=== PATIENT | male | born 1960 | race Caucasian/White ===

== ENCOUNTER 2024-05-08 12:22 | Inpatient (IN) | payer OTHER ==
[2024-05-08] MEDS ORDERED: NA CHLORIDE 0.9% 1,000 ML ONE (13:03)
[2024-05-08 13:30] LABS: Absolute Monocytes 0.7 K/uL (0.1-1.3); Eosinophils % 0.7 % (0-4.4); Hematocrit 21.4 % (39.6-49.0); Hemoglobin 7.3 g/dL (13.6-17.9); Lymphocytes % 26.7 % (15.3-44.8); MCH 27.4 pg (27.0-35.0); MCHC 34.1 g/dL (32.0-36.0); MCV 80.2 fL (80-100); Monocytes % 17.9 % (3.3-12.3); Neutrophils % 53.7 % (41.7-73.7); Nucleated Red Blood Cells % 0.1 % (0-0); Platelets 97 thou/uL (152-406); RBC Red Blood Cell Count 2.68 M/uL (4.33-5.43); Red Cell Distribution Width 23.3 % (12.1-15.2)
[2024-05-08 13:32] LABS: PT Prothrombin Time 11.7 SECONDS (9.4-12.5); Protime INR 1.05
[2024-05-08 13:49] LABS: Albumin 2.3 g/dL (3.4-5.0); Albumin/Globulin Ratio 0.6 (1.1-1.8); Anion Gap 7.8 mEq/L (5.0-15.0); Bilirubin Direct 0.2 mg/dL (0-0.2); Bilirubin Indirect, Calculated 0.3 mg/dL (0.2-0.8); Bilirubin Total 0.5 mg/dL (0.2-1.0); Globulin 4.1 g/dL (2.3-3.5); Magnesium 2.1 mg/dL (1.6-2.4); Potassium 3.8 mEq/L (3.5-5.1); Protein, Total 6.4 g/dL (6.4-8.2); Troponin High Sensitivity 44.9 pg/mL (<58.9)
[2024-05-08 13:56] LABS: SARS-CoV-2 Antigen CONTROL BLUE LINE VIS/BG OK; SARS-CoV-2 Antigen Rapid Res Negative (Negative)
[2024-05-08 14:01] LABS: Anisocytosis 2+; Blood Morphology Comment NOTED (NOT SEEN); Hypochromasia 1+; Ovalocytes 1+; Platelet Estimate DECR; White Blood Cell Scan OK (OK)
--- NOTE | 2024-05-08 15:18 | RAD REPORT ---
EXAM DESCRIPTION: Lu Single View05/08/2024 1:33 pm CLINICAL HISTORY: CHEST PAIN COMPARISON: No comparisonsNo comparisons TECHNIQUE: Portable AP view of the chest. FINDINGS: The lungs are clear. No pneumothorax or effusion. The cardiomediastinal contours are unre markable. IMPRESSION: No acute cardiopulmonary process.
--- NOTE | 2024-05-08 15:59 | EDPHYS ---
Physician Documentation [facility] Name: Chalo Little Age: 63 yrs Sex: Male : 1960 Arrival Date: 05/08/2024 Time: 12:22 Bed 16 Private MD: ED Physician Shalonda Simmons HPI: 05/08 12:50 This 63 yrs old Male presents to ER via EMS with complaints of Chest Pain. cp 12:50 The patient or guardian reports chest pain that is located primarily in the anterior cp chest wall. 12:50 Onset: this morning, intermittent. The pain does not radiate. Associated signs and cp symptoms: Pertinent negatives: abdominal pain, diaphoresis, lower extremity pain, lower extremity swelling, shortness of breath, syncope. 12:50 The chest pain is described as a pressure. Duration: The patient or guardian reports cp multiple episodes, that are intermittent. Modifying factors: the symptoms are aggravated by activity. - Immunization history:: Adult Immunizations up to date. - Infectious Disease History:: Denies. - Social history:: Smoking status: Patient reports the use of cigarette tobacco products, unknown amount. ROS: 12:55 Constitutional: Negative for body aches, chills, fever, poor PO intake, cp 12:55 Eyes: Negative for injury, pain, redness, and discharge, cp 12:55 Cardiovascular: Positive for chest pain, Negative for palpitations, 12:55 Respiratory: Positive for shortness of breath, Negative for cough, wheezing, 12:55 Abdomen/GI: Negative for abdominal pain, vomiting, diarrhea, constipation, 12:55 Neuro: Negative for altered mental status, dizziness, syncope, weakness, 12:55 Back: Negative for pain at rest, pain with movement, radiated pain, cp 12:55 Neck: Negative for pain with movement, pain at rest, stiffness, cp 12:55 All other systems are negative, Exam: 16:00 Constitutional: The patient appears in no acute distress, alert, awake, cp non-diaphoretic, non-toxic, well developed, well nourished, 16:00 Head/Face: Normocephalic, atraumatic. cp 16:00 Eyes: Periorbital structures: appear normal, Pupils: equal, round, and reactive to light and accomodation, Extraocular movements: intact throughout, Conjunctiva: normal, no exudate, no injection, Sclera: no appreciated abnormality, Lids and lashes: appear normal, bilaterally, 16:00 ENT: External ear(s): are unremarkable, Nose: is normal, Mouth: Lips: moist, Oral mucosa: moist, Posterior pharynx: Airway: no evidence of obstruction, patent, 16:00 Neck: ROM/movement: is normal, is supple, without pain, no range of motions limitations, no nuchal rigidity, 16:00 Chest/axilla: Inspection: normal, Palpation: is normal, no crepitus, no tenderness, 16:00 Cardiovascular: Rate: normal, Rhythm: regular, Edema: is not appreciated, JVD: is not appreciated, 16:00 Respiratory: the patient does not display signs of respiratory distress, Respirations: normal, no use of accessory muscles, no retractions, labored breathing, is not present, Breath sounds: are clear throughout, no decreased breath sounds, no stridor, no wheezing, 16:00 Abdomen/GI: Inspection: abdomen appears normal, Palpation: abdomen is soft and non-tender, in all quadrants, 16:00 Back: pain, is absent, ROM is normal, 16:00 Neuro: Orientation: no acute changes, per family, Mentation: no acute changes, per family, Motor: moves all fours, no focal deficits, Sensation: is normal, Gait: is steady, Vital Signs: 12:49 BP 130 / 80; Pulse 82; Resp 16; Temp 98; Pulse Ox 97% ; bp 13:39 BP 138 / 69; Pulse 79; Resp 16; Pulse Ox 99% ; bp 14:53 BP 131 / 74; Pulse 76; Resp 16; Pulse Ox 100% ; bp 17:00 BP 141 / 73; Pulse 68; Resp 16; Pulse Ox 98% ; bp MDM: 12:24 Patient medically screened. cp 16:00 Data reviewed: vital signs, nurses notes, lab test result(s), EKG, radiologic studies, cp and as a result, I will admit patient. 16:00 Differential diagnosis: abnormal EKG, acute myocardial infarction, pericarditis, stable cp angina, unstable angina. The patient was given aspirin in the Emergency Department. 05/08 12:45 Order name: Basic Metabolic Panel; Complete Time: 15:14 cp 05/08 15:14 Interpretation: Normal except: CL 109; GLUC 373; GFR 87. cp 05/08 12:45 Order name: CBC with Diff; Complete Time: 15:14 cp 05/08 12:45 Order name: LFT's; Complete Time: 15:14 cp 05/08 12:45 Order name: Magnesium; Complete Time: 15:14 cp 05/08 12:45 Order name: PT-INR; Complete Time: 15:14 cp 05/08 12:45 Order name: Troponin HS; Complete Time: 15:14 cp 05/08 15:54 Interpretation: Reviewed. cp 05/08 12:45 Order name: SARS RAPID; Complete Time: 15:14 cp 05/08 12:45 Order name: Lipase; Complete Time: 15:14 cp 05/08 12:55 Order name: Flu; Complete Time: 15:14 bp 05/08 13:37 Order name: CBC Smear Scan; Complete Time: 15:14 EDMS 05/08 16:10 Order name: Glucose, Ancillary Testing EDMS 05/08 17:14 Order name: Alcohol Serum/Plasma EDMS 05/08 17:14 Order name: Ammonia EDMS 05/08 17:14 Order name: Urine Drug Screen EDMS 05/08 17:14 Order name: T4 Free EDMS 05/08 17:14 Order name: Thyroid Stimulating Hormone EDMS 05/08 17:14 Order name: Urinalysis w/ reflexes EDMS 05/08 17:14 Order name: Basic Metabolic Panel EDMS 05/08 17:14 Order name: Basic Metabolic Panel EDMS 05/08 17:14 Order name: Basic Metabolic Panel EDMS 05/08 17:14 Order name: Basic Metabolic Panel EDMS 05/08 17:14 Order name: Basic Metabolic Panel EDMS 05/08 17:14 Order name: Basic Metabolic Panel EDMS 05/08 17:14 Order name: CBC with Automated Diff EDMS 05/08 17:14 Order name: CBC with Automated Diff EDMS 05/08 17:14 Order name: CBC with Automated Diff EDMS 05/08 17:14 Order name: CBC with Automated Diff EDMS 05/08 17:14 Order name: CBC with Automated Diff EDMS 05/08 17:14 Order name: CBC with Automated Diff EDMS 05/08 17:14 Order name: Lipid Profile EDMS 05/08 17:14 Order name: Lipid Profile EDMS 05/08 17:14 Order name: Magnesium EDMS 05/08 17:14 Order name: Magnesium EDMS 05/08 17:14 Order name: Magnesium EDMS 05/08 17:14 Order name: Magnesium EDMS 05/08 17:14 Order name: Magnesium EDMS 05/08 17:14 Order name: Magnesium EDMS 05/08 17:14 Order name: Phosphorus EDMS 05/08 17:14 Order name: Phosphorus EDMS 05/08 17:14 Order name: Phosphorus EDMS 05/08 17:14 Order name: Phosphorus EDMS 05/08 17:14 Order name: Phosphorus EDMS 05/08 17:14 Order name: Phosphorus EDMS 05/08 17:14 Order name: Troponin High Sensitivity EDMS 05/08 17:14 Order name: Troponin High Sensitivity EDMS 05/08 17:14 Order name: Troponin High Sensitivity EDMS 05/08 12:45 Order name: XRAY Chest (1 view); Complete Time: 15:32 cp 05/08 15:32 Interpretation: Report review. cp 05/08 17:14 Order name: Physical Therapy Consult [facility] 05/08 12:45 Order name: Cardiac monitoring; Complete Time: 12:49 cp 05/08 12:45 Order name: EKG - Nurse/Tech; Complete Time: 12:49 cp 05/08 12:45 Order name: IV Saline Lock; Complete Time: 12:49 cp 05/08 12:45 Order name: Labs collected and sent; Complete Time: 13:13 cp 05/08 12:45 Order name: O2 Per Protocol; Complete Time: 12:49 cp 05/08 12:45 Order name: O2 Sat Monitoring; Complete Time: 12:49 cp Administered Medications: 13:13 Drug: NS 0.9% IV 1000 ml IV at 999 ml/hr Per protocol Route: IV; Rate: 999 ml/hr; Site: bp right forearm; 16:30 Drug: Aspirin PO Chewable Tablet 324 mg PO once; 81 mg tablets x 4 Route: PO; bp 17:46 Follow up: Response: No adverse reaction bp 16:41 Drug: Insulin Regular Human Sub-Q 10 units Sub-Q once {Co-Signature: me1 (bp Leslye Marques RN).} Route: Sub-Q; Site: left lower abdomen; 17:46 Follow up: Response: No adverse reaction bp Disposition Summary: 05/08/24 15:59 Hospitalization Ordered Notes: Hospitalization Status: Observation cp Provider: Jhony Whipple cp Location: Telemetry/MedSurg (observation) cp Condition: Stable cp Problem: new cp Symptoms: have improved cp Bed/Room Type: Standard cp Room Assignment: 228(05/08/24 17:40) eb Diagnosis - Chest pain, unspecified cp Discharge Instructions: - Discharge Summary Sheet cp Forms: - Medication Reconciliation Form cp - SBAR form cp - Leadership Thank You Letter cp Signatures: Dispatcher [employer] EDMS Harvinder Hammer PA PA cp Collins Martínez, RN RN bp Tamera Gautam Michelle RN me1 Corrections: (The following items were deleted from the chart) 12:45 12:45 BASIC METABOLIC PANEL+C.LAB.BRZ ordered. EDMS EDMS 12:45 12:45 CBC+H.LAB.BRZ ordered. EDMS EDMS 12:45 12:45 HEPATIC FUNCTION+C.LAB.BRZ ordered. EDMS EDMS 12:45 12:45 MAGNESIUM+C.LAB.BRZ ordered. EDMS EDMS 12:45 12:45 PROTIME (+INR)+COAG.LAB.BRZ ordered. EDMS EDMS 12:45 12:45 Troponin High Sensitivity+C.LAB.BRZ ordered. EDMS EDMS 12:45 12:45 SARS-COV-2 Antigen Rapid+I.LAB.BRZ ordered. EDMS EDMS 12:45 12:45 LIPASE+C.LAB.BRZ ordered. EDMS EDMS 12:45 12:45 Chest Single View+RAD.RAD.BRZ ordered. EDMS EDMS 17:40 15:59 cp eb 05/09 17:01 05/08 12:55 Neuro: Positive for dizziness, Negative for altered mental status, syncope, cp weakness, cp
--- NOTE | 2024-05-08 15:59 | ER ---
Nurse's Notes [facility] Name: Chalo Little Age: 63 yrs Sex: Male : 1960 Arrival Date: 05/08/2024 Time: 12:22 Bed 16 Private MD: Diagnosis: Chest pain, unspecified Presentation: 05/08 12:49 Chief complaint: EMS states: CHEST PAIN, NOW RESOLVED. Coronavirus screen: At this bp time, the client does not indicate any symptoms associated with coronavirus-19. Ebola Screen: No symptoms or risks identified at this time. Initial Sepsis Screen: Does the patient meet any 2 criteria? No. Patient's initial sepsis screen is negative. Does the patient have a suspected source of infection? No. Patient's initial sepsis screen is negative. Risk Assessment: Do you want to hurt yourself or someone else? Patient reports no desire to harm self or others. Onset of symptoms is unknown. Care prior to arrival: IV initiated. 18 GA, in the right forearm, Glucose check: 346. 12:49 Method Of Arrival: EMS: [facility] bp 12:49 Acuity: ASHLEY 3 bp Triage Assessment: 12:49 General: Appears in no apparent distress. Behavior is calm, cooperative. Pain: Denies bp pain. Cardiovascular: Chest pain is denied. - Immunization history:: Adult Immunizations up to date. - Infectious Disease History:: Denies. - Social history:: Smoking status: Patient reports the use of cigarette tobacco products, unknown amount. Screenin:40 [facility] ED Fall Risk Assessment (Adult) History of falling in the last 3 months, bp including since admission No falls in past 3 months (0 pts) Confusion or Disorientation No (0 pts) Intoxicated or Sedated No (0 pts) Impaired Gait No (0 pts) Mobility Assist Device Used No (0 pt) Altered Elimination No (0 pt) Score/Fall Risk Level 0 - 2 = Low Risk. Abuse screen: Denies threats or abuse. Denies injuries from another. Nutritional screening: No deficits noted. Tuberculosis screening: No symptoms or risk factors identified. Assessment: 12:50 General: Appears in no apparent distress. comfortable, Behavior is calm, cooperative. bp 13:40 Reassessment: Patient appears in no apparent distress at this time. Patient is alert, bp oriented x 3, equal unlabored respirations, skin warm/dry/pink. 14:06 Reassessment: AMBULATORY TO RESTROOM WITH STEADY GAIT. Neuro: Oriented to Appropriate bp for age Gait is steady. 14:53 Reassessment: Patient appears in no apparent distress at this time. Patient is alert, bp oriented x 3, equal unlabored respirations, skin warm/dry/pink. 16:30 Reassessment: No changes from previously documented assessment. Patient is alert, bp oriented x 3, equal unlabored respirations, skin warm/dry/pink. 17:51 Reassessment: REPORT FAXED FOR RM 228. bp Vital Signs: 12:49 BP 130 / 80; Pulse 82; Resp 16; Temp 98; Pulse Ox 97% ; bp 13:39 BP 138 / 69; Pulse 79; Resp 16; Pulse Ox 99% ; bp 14:53 BP 131 / 74; Pulse 76; Resp 16; Pulse Ox 100% ; bp 17:00 BP 141 / 73; Pulse 68; Resp 16; Pulse Ox 98% ; bp ED Course: 12:23 Patient arrived in ED. bp 12:23 Collins Martínez, HELENA is Primary Nurse. bp 12:23 Harvinder Hammer PA is PHCP. cp 12:23 Shalonda Simmons MD is Attending Physician. cp 12:45 Maintain EMS IV. Dressing intact. Good blood return noted. Site clean \T\ dry. Gauge \T\ bp site: 18 RFA. Patient maintains SpO2 saturation greater than 95% on room air. 12:49 Arm band placed on. bp 12:51 Triage completed. bp 13:35 XRAY Chest (1 view) In Process Unspecified. EDMS 13:40 Patient has correct armband on for positive identification. Provided Education on: NA. bp Client placed on continuous cardiac and pulse oximetry monitoring. NIBP monitoring applied. psychiatric nursing assistant on. Pulse ox on. NIBP on. 15:59 Jhony Whipple is Hospitalizing Provider. cp Administered Medications: 13:13 Drug: NS 0.9% IV 1000 ml IV at 999 ml/hr Per protocol Route: IV; Rate: 999 ml/hr; Site: bp right forearm; 16:30 Drug: Aspirin PO Chewable Tablet 324 mg PO once; 81 mg tablets x 4 Route: PO; bp 17:46 Follow up: Response: No adverse reaction bp 16:41 Drug: Insulin Regular Human Sub-Q 10 units Sub-Q once {Co-Signature: me1 (bp Leslye Marques RN).} Route: Sub-Q; Site: left lower abdomen; 17:46 Follow up: Response: No adverse reaction bp Outcome: 15:59 Decision to Hospitalize by Provider. cp 18:30 Patient left the ED. bp Signatures: Dispatcher [employer] Harvinder Alcala PA PA cp Peltier, Brian, RN RN bp Leslye Marques RN me1
--- NOTE | 2024-05-08 16:16 | P.HP ---
Certification for Inpatient Patient admitted to: Observation With expected LOS: <2 Midnights Patient will require the following post-hospital care: None Practitioner: I am a practitioner with admitting privileges, knowledge of patient current condition, hospital course, and medical plan of care. Services: Services provided to patient in accordance with Admission requirements found in Title 42 Section 412.3 of the Code of Federal Regulations Patient History Date of Service: 05/09/24 Reason for admission: Chest pain r/o History of Present Illness: Chalo Little is a 63 year old male with PMHx Hyperlipidemia, CVA December 2023, diabetes mellitusNIDDM, former smoker, former alcohol abuse. He presents to the ED with chief complaint of right sided chest pain with onset at 1030 today, now chest pain is resolved. Sister is at the bedside and is a good historian reporting he had a CVA in December of this year, right carotid stenosis causing the CVA and had a carotid endarterectomy performed, while on blood thinners he had started vomiting blood and they performed a TIPS procedure. It is unclear if all of these procedures took place at [facility]. Unable to obtain information from Chalo as he kept his eyes closed and did not answer questions. Initial Vitals BP 130 / 80; Pulse 82; Resp 16; Temp 98; Pulse Ox 97 Laboratory evaluation significant for WBC 3.8, H&H 7.3/21, platelets 97, serum glucose 373 Chest x-ray reports "No acute cardiopulmonary process." Chalo will be admitted to hospitalist service for further evaluation and treatm ent of Chest pain r/o ACS, Cardiology consulted Allergies No Known Allergies Allergy (Unverified 05/08/24 19:51) Home Medications: Aspirin [Aspirin EC 81 MG] DAILY 05/08/24 Atorvastatin Calcium [Lipitor*] BEDTIME 05/08/24 Lactulose 10 gm PO QID 05/08/24 Metformin ER [Glucophage ER*] BEDTIME 05/08/24 Pantoprazole [Protonix Tab*] BID 05/08/24 Rifaximin [Xifaxan] BID 05/08/24 - Past Medical/Surgical History -: Hyperlipidemia -: CVA December 2023 -: Diabetes mellitusNIDDM -: Former smoker -: Former alcohol abuse -: Tips procedure -: Right carotid endarterectomy - Social History Smoking Status: Former smoker Alcohol use: No CD- Drugs: No Review of Systems is unable to be obtained Physical Examination - Physical Exam General: Alert, In no apparent distress, Oriented x3 HEENT: Atraumatic, Normocephalic, PERRLA Neck: Supple, 2+ carotid pulse no bruit Respiratory: Clear to auscultation bilaterally, Normal air movement Cardiovascular: No edema, Normal pulses, Regular rate/rhythm, Normal S1 S2 Capillary refill: <2 Seconds Gastrointestinal: Normal bowel sounds, Soft and benign, Non-distended, Tenderness Musculoskeletal: No clubbing Integumentary: No rashes Neurological: Other (lethargic) - Studies Laboratory Data (last 24 hrs) 05/08/24 05/08/24 05/08/24 13:11 13:11 13:11 WBC 3.80 L Hgb 7.3 L Hct 21.4 L Plt Count 97 L PT 11.7 INR 1.05 Sodium 139 Potassium 3.8 BUN 10 Creatinine 0.99 Glucose 373 H Magnesium 2.1 Total Bilirubin 0.5 AST 22 ALT 39 Alkaline Phosphatase 108 Lipase 119 H Microbiology Data (last 24 hrs): 05/08/24 13:11 Nasopharnyx Influenza Type A Antigen Screen - Final 05/08/24 13:11 Nasopharnyx Influenza Type B Antigen Screen - Final Assessment and Plan - Plan Assessment and plan Chest pain rule out ACS - EKG: No obvious ST segment changes - troponin 44.9, Serial pending - Ordered transthoracic echocardiogram - Chest x-ray reports "No acute cardiopulmonary process." - Consult Cardiology - recommendations appreciated - S/P aspirin 324 mg PO x 1 in ED - Start daily baby aspirin and statin - Symptom control with PRN acetaminophen, nitroglycerin, morphine - continuous telemetry - TSH/FreeT4, A1C, lipid panel pending Acute metabolic encephalopathy History of TIPS History of alcohol abuse History of hyperammonemia -ammonia level pending -toxicology and UDS pending -continue home medications -Lipase 113 Anemia Neutropenic Thrombocytopenia -WBC 3.8, H&H 7.3/21, platelets 97 -Iron studies pending Diabetes mellitus- NIDDM uncontrolled -Serum glucose 373 -A1c in a.m. DVT ppx SCD Full code LOS 24 hour Discharge Plan: Home Plan to discharge in: 24 Hours - Advance Directives Does patient have a Living Will: No Does patient have a Durable POA for Healthcare: No
[2024-05-08] MEDS ORDERED: INSULIN REGULAR (HUMAN) 100 UNIT/ML ONE (16:37)
[2024-05-08] MEDS ORDERED: ASPIRIN 81 MG CHEWABLE TABLET ONE (16:47)
[2024-05-08] MEDS ORDERED: MORPHINE 4 MG/ML SYR IV PRN (17:05)
[2024-05-08] MEDS ORDERED: ACETAMINOPHEN 500 MG TAB PO PRN (17:05)
[2024-05-08] MEDS ORDERED: NITROGLYCERIN 0.4 MG/TAB SL PRN (17:05)
[2024-05-08] MEDS: NA CHLORIDE 0.9% 1,000 ML IV SCH (20:52)
[2024-05-08] MEDS: ACETAMINOPHEN 325 MG TABLET PO PRN (20:52)
[2024-05-08] MEDS: ATORVASTATIN 40 MG TAB PO SCH (20:52)
[2024-05-08] MEDS: INSULIN REGULAR (HUMAN) 100 UNIT/ML SQ SCH (21:13)
[2024-05-08 22:40] VITALS: BMI 23.1
[2024-05-09 05:01] LABS: Absolute Lymphocytes (CBC) 0.9 K/uL (0.7-4.9); Absolute Monocytes 0.6 K/uL (0.1-1.3); Absolute Neutrophil 2.4 K/uL (1.8-8.0); Basophils % 0.7 % (0-1.3); Eosinophils % 0.4 % (0-4.4); Hematocrit 23.2 % (39.6-49.0); Hemoglobin 7.7 g/dL (13.6-17.9); Lymphocytes % 23.9 % (15.3-44.8); MCH 27.2 pg (27.0-35.0); MCHC 33.3 g/dL (32.0-36.0); MCV 81.6 fL (80-100); MPV 8.2 fL (7.6-11.3); Monocytes % 14.8 % (3.3-12.3); Neutrophils % 60.2 % (41.7-73.7); Platelets 94 thou/uL (152-406); RBC Red Blood Cell Count 2.84 M/uL (4.33-5.43)
[2024-05-09 05:05] LABS: Red Cell Distribution Width 23.8 % (12.1-15.2)
[2024-05-09 05:28] LABS: Anion Gap 7.7 mEq/L (5.0-15.0); Phosphorus 2.7 mg/dL (2.5-4.9); Potassium 3.7 mEq/L (3.5-5.1); Thyroid Stimulating Hormone 0.868 uIU/mL (0.358-3.740)
[2024-05-09] MEDS ORDERED: MORPHINE 2 MG/ML SYR IV PRN (07:13)
[2024-05-09] MEDS: ASPIRIN EC 81 MG TAB PO SCH (08:49)
[2024-05-09] MEDS: NA CHLORIDE 0.9% 1,000 ML IV SCH (08:50)
[2024-05-09] MEDS: Rifaximin 550 MG Tab PO SCH (08:54)
[2024-05-09] MEDS ORDERED: LACTULOSE 20 GM/30 ML UCUP PO SCH (09:00)
--- NOTE | 2024-05-09 09:50 | P.CNS ---
Date of Consult: 05/09/24 Chief Complaint: Chest pain r/o History of Present Illness: Patient with PMH of stroke, carotid A disease s/p right endartectomy, GI bleed and cirrhosis s/p TIPs procedure presented with chest pain, sharp, right sided, denies palpitations, no SOB, no syncope, patient family says that he has been very weak since he got the TIPs procedure, sleep most of the time. Allergies No Known Allergies Allergy (Unverified 05/08/24 19:51) Home medications list reviewed: Yes Home Medications: Aspirin [Aspirin EC 81 MG] DAILY 05/08/24 Atorvastatin Calcium [Lipitor*] BEDTIME 05/08/24 Lactulose 10 gm PO QID 05/08/24 Metformin ER [Glucophage ER*] BEDTIME 05/08/24 Pantoprazole [Protonix Tab*] BID 05/08/24 Rifaximin [Xifaxan] BID 05/08/24 - Past Medical/Surgical History -: Hyperlipidemia -: CVA December 2023 -: Diabetes mellitusNIDDM -: Former smoker -: Former alcohol abuse -: Tips procedure -: Right carotid endarterectomy - Social History Smoking Status: Current every day smoker Alcohol use: No CD- Drugs: No Review of Systems 10-point ROS is otherwise unremarkable Physical Examination Temp Pulse Resp BP Pulse Ox 98 F 88 16 161/67 H 99 05/09/24 08:00 05/09/24 08:00 05/09/24 08:00 05/09/24 08:00 05/09/24 08:00 General: Alert, In no apparent distress HEENT: Atraumatic, PERRLA, Mucous membr. moist/pink, EOMI, Sclerae nonicteric Neck: Supple, 2+ carotid pulse no bruit, No LAD, Without JVD or thyroid abnormality Respiratory: Clear to auscultation bilaterally, Normal air movement Cardiovascular: Regular rate/rhythm, Normal S1 S2 Gastrointestinal: Normal bowel sounds, No tenderness Musculoskeletal: No tenderness Integumentary: No rashes Neurological: Normal gait, Normal speech, Normal tone, Normal affect Lymphatics: No axilla or inguinal lymphadenopathy Laboratory Data (last 24 hrs) 05/08/24 05/08/24 05/08/24 13:11 13:11 13:11 WBC 3.80 L Hgb 7.3 L Hct 21.4 L Plt Count 97 L PT 11.7 INR 1.05 Sodium 139 Potassium 3.8 BUN 10 Creatinine 0.99 Glucose 373 H Magnesium 2.1 Total Bilirubin 0.5 AST 22 ALT 39 Alkaline Phosphatase 108 Lipase 119 H - Problems (1) Chest pain Current Visit: Yes Status: Acute Plan: atypical for ACS, troponin negative, no EKG changes, chest pain resolved. ASA 81 mg daily get Echo (2) History of carotid endarterectomy Current Visit: Yes Status: Acute Plan: continue ASA and Lipitor (3) Weakness Current Visit: Yes Status: Acute Plan: Ammonia is high, recommend GI consult
--- NOTE | 2024-05-09 12:18 | RAD REPORT ---
EXAM DESCRIPTION: CT - Abdomen Pelvis W Contrast - 05/09/2024 10:36 am CLINICAL HISTORY: elevated lipase, anemic COMPARISON: Chest Single View dated 05/08/2024 TECHNIQUE: Thin cut axial CT imaging of the abdomen and pelvis was performed following intravenous a dministration of 100 mL Isovue 300. Multiplanar reformats were generated and reviewed. All CT scans are performed using dose optimization technique as appropriate and may include automated exposure control or mA/KV adjustment according to patient size. FINDINGS: No suspicious findings in the lung bases. The liver, spleen, and adrenal gland show no suspicious findings. Gallbladder is decompressed limitin g evaluation. Mild retroperitoneal edema centered on the head of the pancreas and uncinate process. Symmetric renal function is seen with no hydronephrosis or suspicious renal mass. Postsurgical changes with metallic clips in the epigastrium and left upper retroperitoneum. TIPS in p lace. No dilated bowel loops or bowel wall thickening. Moderate to large stool burden throughout the colon. No free air, free fluid or inflammatory stranding. No hernia, mass or bulky lymphadenopathy. The uri nary bladder is without significant finding. No suspicious bony findings. IMPRESSION: Mild retroperitoneal edema centered on the head of the pancreas and uncinate process, ra ises concern for focal acute pancreatitis. Incidental findings as above.
[2024-05-09] MEDS: LACTULOSE 20 GM/30 ML UCUP PO SCH ×2 (12:54)
--- NOTE | 2024-05-09 16:51 | P.PN ---
Date of Service: 05/09/24 Subjective confused this morning, better cognition this afternoon Lipase is better Cardiology request ECHO CT abd/pelvis showing acute pancreatitis, increased IVF Likely discharge after ECHO and after additional IVF tonight ROS 10 point ROS as noted above, otherwise negative Physical Exam General: Alert, Oriented x3, NAD HEENT: Atraumatic, Normocephalic, PERRLA Neck: Supple, 2+ carotid pulse no bruit Respiratory: Clear to auscultation bilaterally, symmetrical chest wall movement, room air Cardiovascular: No edema, Normal pulses, NSR, Normal S1 S2 Capillary refill: <2 Seconds Gastrointestinal: Normal bowel sounds, Soft and benign on palpation, ND/NT Musculoskeletal: No clubbing Integumentary: No rashes Neurological: normal speech, confused Vitals Reviewed Problem list Chest pain rule out ACS Acute metabolic encephalopathy Acute Pancreatitis History of TIPS History of alcohol abuse History of hyperammonemia Anemia Neutropenic Thrombocytopenia Diabetes mellitus- NIDDM uncontrolled Assessment and Plan Chest pain rule out ACS - EKG: No obvious ST segment changes - troponin 44.9/50.1/37.0 - transthoracic echocardiogram - Chest x-ray reports "No acute cardiopulmonary process." - Consult Cardiology - recommend ECHO - S/P aspirin 324 mg PO x 1 in ED - Start daily baby aspirin and statin - Symptom control with PRN acetaminophen, nitroglycerin, morphine - continuous telemetry - TSH/FreeT4 0.868/ 0.75, [id number], lipid panel (triglyceride 62, cholesterol 95, LDL 25, HDL 58) Acute metabolic encephalopathy Acute Pancreatitis History of TIPS History of alcohol abuse History of hyperammonemia -CT abd/pelvis reports "Mild retroperitoneal edema centered on the head of the pancreas and uncinate process, raises concern for focal acute pancreatitis." -ammonia level 170, trend -toxicology and UDS pending -continue home medications -Lipase 101, trend daily -Aggressove IVF Anemia Neutropenic Thrombocytopenia -initial labs WBC 3.8, H&H 7.3/21, platelets 97 -Iron studies pending Diabetes mellitus- NIDDM uncontrolled -Serum glucose 288 -A1c in a.m. DVT ppx SCD Full code LOS 24 hour Discharge Plan: Home Plan to discharge in: 24 hours
[2024-05-09 18:07] LABS: Specific Gravity 1.023 (1.005-1.030); Sqamous Epithelial None Seen /HPF (None Seen); Urine Bacteria None Seen /HPF (<20); Urine Bilirubin NEGATIVE (Negative); Urine Blood Negative (Negative); Urine Clarity Extremely Turbid (Clear); Urine Color Light-Yellow (Yellow); Urine Culture Reflex Order NOT NEEDED; Urine Glucose 4+ (Negative); Urine Ketones NEGATIVE (Negative); Urine Microscopic Reflex YN ORDER UMIC; Urine Nitrite NEGATIVE (Negative); Urine Protein NEGATIVE (Negative); Urine RBC <5 /HPF (None Seen); Urine Urobilinogen 1+ (Normal); Urine WBC <5 /HPF (<5)
[2024-05-09 18:12] LABS: Barbiturates NEGATIVE (NEGATIVE); Benzodiazepines NEGATIVE (NEGATIVE); Cocaine NEGATIVE (NEGATIVE); METHAMPHETAM NEGATIVE (NEGATIVE); Methadone NEGATIVE (NEGATIVE); Opiates NEGATIVE (NEGATIVE); Phencyclidine NEGATIVE (NEGATIVE); THC Cannibis NEGATIVE (NEGATIVE)
[2024-05-09 18:44] LABS: Ferritin 16.3 ng/mL (26-388)
[2024-05-10 05:48] LABS: Absolute Lymphocytes (CBC) 0.6 K/uL (0.7-4.9); Absolute Monocytes 0.6 K/uL (0.1-1.3); Basophils % 0.5 % (0-1.3); Eosinophils % 0.8 % (0-4.4); Hemoglobin 8.1 g/dL (13.6-17.9); Lymphocytes % 14.9 % (15.3-44.8); MCH 27.1 pg (27.0-35.0); MCHC 33.8 g/dL (32.0-36.0); MCV 80.3 fL (80-100); MPV 7.4 fL (7.6-11.3); Neutrophils % 68.8 % (41.7-73.7); Nucleated Red Blood Cells % 0.1 % (0-0); Platelets 98 thou/uL (152-406); RBC Red Blood Cell Count 2.99 M/uL (4.33-5.43); Red Cell Distribution Width 23.1 % (12.1-15.2)
[2024-05-10 06:08] LABS: Albumin 2.4 g/dL (3.4-5.0); Albumin/Globulin Ratio 0.6 (1.1-1.8); Bilirubin Total 0.6 mg/dL (0.2-1.0); Globulin 4.3 g/dL (2.3-3.5); Phosphorus 3.1 mg/dL (2.5-4.9); Protein, Total 6.7 g/dL (6.4-8.2)
--- NOTE | 2024-05-10 12:44 | EKG ---
Test Date: 2024-05-08 Test Time: 12:40:50 Merchant Patroller: AMARILYS MEASUREMENT RESULTS: Intervals: Rate: 83 VT: 146 QRSD: 90 QT: 408 QTc: 479 Nadeau: P: 65 VT: 146 QRS: 35 T: 69 INTERPRETIVE STATEMENTS: Normal sinus rhythm Normal ECG No previous ECG available for comparison Electronically Signed On 05-10-24 12:42:14 CDT by Akbar Spann
--- NOTE | 2024-05-10 13:18 | P.PN ---
Subjective Date of Service: 05/10/24 Chief Complaint: Chest pain r/o Subjective: No new changes, No C/O voiced, Tolerating diet, Ambulating, Improving Review of Systems 10-point ROS is otherwise unremarkable Physical Examination - Vital Signs Temperature: 98.5 F Blood Pressure: 127/61 Pulse: 80 Respirations: 16 Pulse Ox (%): 100 - Physical Exam General: Alert, In no apparent distress HEENT: Atraumatic, PERRLA, EOMI Neck: Supple, JVD not distended Respiratory: Clear to auscultation bilaterally, Normal air movement Cardiovascular: Regular rate/rhythm, Normal S1 S2 Gastrointestinal: Normal bowel sounds, No tenderness Musculoskeletal: No tenderness Integumentary: No rashes Neurological: Normal speech, Normal tone, Normal affect Lymphatics: No axilla or inguinal lymphadenopathy - Studies Medications List Reviewed: Yes Assessment And Plan - Current Problems (Diagnosis) (1) Chest pain Current Visit: Yes Status: Acute Plan: atypical for ACS, troponin negative, no EKG changes, chest pain resolved. ASA 81 mg daily Echo shows normal EF and systolic function No further inpatient cardiac work up needed. (2) History of carotid endarterectomy Current Visit: Yes Status: Acute Plan: continue ASA and Lipitor (3) Weakness Current Visit: Yes Status: Acute Plan: Ammonia is high, recommend GI consult
--- NOTE | 2024-05-10 14:33 | P.PN ---
Date of Service: 05/10/24 Subjective Confused, at baseline per family Denies abdominal pain today Oriented x 1 ROS 10 point ROS as noted above, otherwise negative Physical Exam General: Alert, Oriented x1, NAD, globally confused HEENT: Atraumatic, Normocephalic, PERRLA Neck: Supple, 2+ carotid pulse no bruit Respiratory: Clear to auscultation bilaterally, symmetrical chest wall movement, room air Cardiovascular: No edema, Normal pulses, NSR, Normal S1 S2 Capillary refill: <2 Seconds Gastrointestinal: Normal bowel sounds, Soft and benign on palpation, ND/NT Musculoskeletal: No clubbing Integumentary: No rashes Neurological: normal speech, confused Vitals Reviewed Problem list Chest pain rule out ACS Acute metabolic encephalopathy Acute Pancreatitis Alcoholic cirrhosis of liver S/P TIPS procedure Anemia Neutropenic Thrombocytopenia Diabetes mellitus- NIDDM uncontrolled Plan Chest pain rule out ACS - EKG: No obvious ST segment changes - troponin 44.9/50.1/37.0 - TTE normal - Chest x-ray reports "No acute cardiopulmonary process. - Cardiology recommends further workup as an outpatient Acute metabolic encephalopathy Acute Pancreatitis Alcoholic cirrhosis of liver S/P TIPS procedure -CT abd/pelvis reports "Mild retroperitoneal edema centered on the head of the pancreas and uncinate process, raises concern for focal acute pancreatitis." -Ammonia level improving -Abdominal pain seems to be improving, continue IV fluids -Advance diet as tolerated -Patient confused at baseline, requires redirection, monitoring to reduce risk of falls, harming himself Anemia Neutropenic Thrombocytopenia -Monitor CBC daily Diabetes mellitus- NIDDM uncontrolled ACHS Accu-Chek, sliding scale insulin DVT ppx SCD Full code LOS 24-48 hours Discharge Plan: Home
[2024-05-10] MEDS: LACTULOSE 20 GM/30 ML UCUP PO SCH (20:17)
[2024-05-11 01:06] VITALS: O2SAT 97
[2024-05-11 05:46] LABS: Absolute Neutrophil 3.8 K/uL (1.8-8.0); Basophils % 0.4 % (0-1.3); Eosinophils % 0.2 % (0-4.4); Hematocrit 23.3 % (39.6-49.0); Hemoglobin 7.9 g/dL (13.6-17.9); Lymphocytes % 16.7 % (15.3-44.8); MCH 27.6 pg (27.0-35.0); MCHC 33.8 g/dL (32.0-36.0); MCV 81.6 fL (80-100); MPV 7.8 fL (7.6-11.3); Monocytes % 17.4 % (3.3-12.3); Neutrophils % 65.3 % (41.7-73.7); Platelets 118 thou/uL (152-406); RBC Red Blood Cell Count 2.85 M/uL (4.33-5.43); Red Cell Distribution Width 22.6 % (12.1-15.2)
[2024-05-11 06:14] LABS: Albumin 2.3 g/dL (3.4-5.0); Albumin/Globulin Ratio 0.6 (1.1-1.8); Anion Gap 8.2 mEq/L (5.0-15.0); Bilirubin Total 0.6 mg/dL (0.2-1.0); Globulin 4.1 g/dL (2.3-3.5); Magnesium 1.9 mg/dL (1.6-2.4); Phosphorus 2.5 mg/dL (2.5-4.9); Potassium 4.2 mEq/L (3.5-5.1); Protein, Total 6.4 g/dL (6.4-8.2)
--- NOTE | 2024-05-11 06:58 | ECHO ---
HEIGHT: 6 ft 2 in WEIGHT: 180 lb 0 oz DATE OF STUDY: 05/10/[address]: Donya Moody NP 2-DIMENSIONAL: YES M.MODE: YES DOPPLER: YES COLOR FLOW: YES TDS: PORTABLE: YES DEFINITY: BUBBLE STUDY: DIAGNOSIS: CHEST PAIN CARDIAC HISTORY: CATHERIZATION: NO SURGERY: NO PROSTHETIC VALVE: NO PACEMAKER: NO MEASUREMENTS (cm) DIASTOLIC (NORMALS) SYSTOLIC (NORMALS) IVSd 1.2 (0.6-1.2) LA Diam 2.9 (1.9-4.0) LVEF 60-65% LVIDd 3.8 (3.5-5.7) LVIDs 2.3 (2.0-3.5) %FS 40% LVPWd 1.3 (0.6-1.2) Ao Diam 3.0 (2.0-3.7) 2 DIMENSIONAL ASSESSMENT: RIGHT ATRIUM: NORMAL LEFT ATRIUM: NORMAL RIGHT VENTRICLE: NORMAL LEFT VENTRICLE: MILD LEFT VENTRICULAR HYPERTROPHY TRICUSPID VALVE: NORMAL MITRAL VALVE: NORMAL PULMONIC VALVE: NORMAL AORTIC VALVE: NORMAL PERICARDIAL EFFUSION: NONE AORTIC ROOT: NORMAL LEFT VENTRICULAR WALL MOTION: NORMAL DOPPLER/COLOR FLOW: NORMAL COMMENTS: 1. MILD LEFT VENTRICULAR HYPERTROPHY 2. NORMAL LEFT VENTRICULAR SYSTOLIC FUNCTION, EJECTION FRACTION 60-65%, NORMAL WALL MOTION 3. NORMAL DIASTOLIC FUNCTION TECHNOLOGIST: ADAM CAMPA
[2024-05-11] MEDS: LACTULOSE 20 GM/30 ML UCUP PO SCH (08:56)
[2024-05-11] MEDS: INSULIN REGULAR (HUMAN) 100 UNIT/ML SQ SCH (10:24)
[2024-05-11 12:13] VITALS: BP 120/57; TEMP 98.3
--- NOTE | 2024-05-11 15:07 | P.DS ---
Admission Date: 05/08/24 Discharge Date: 05/11/24 Disposition: DC HOME/HOME HEALTH CARE Discharge Condition: GOOD Reason for Admission: Chest pain r/o Brief History of Present Illness: Chalo Little is a 63 year old male with PMHx Hyperlipidemia, CVA December 2023, diabetes mellitusNIDDM, former smoker, former alcohol abuse. He presents to the ED with chief complaint of right sided chest pain with onset at 1030 today, now chest pain is resolved. Sister is at the bedside and is a good historian reporting he had a CVA in December of this year, right carotid stenosis causing the CVA and had a carotid endarterectomy performed, while on blood thinners he had started vomiting blood and they performed a TIPS procedure. Chalo will be admitted to hospitalist service for further evaluation and treatment of Chest pain r/o ACS, Cardiology consulted Hospital Course: Problem list Chest pain rule out ACS Acute metabolic encephalopathy Acute Pancreatitis Alcoholic cirrhosis of liver S/P TIPS procedure Anemia Neutropenic Thrombocytopenia Diabetes mellitus- NIDDM uncontrolled General: Alert, Oriented x1, NAD, globally confused HEENT: Atraumatic, Normocephalic, PERRLA Neck: Supple, 2+ carotid pulse no bruit Respiratory: Clear to auscultation bilaterally, symmetrical chest wall movement, room air Cardiovascular: No edema, Normal pulses, NSR, Normal S1 S2 Capillary refill: <2 Seconds Gastrointestinal: Normal bowel sounds, Soft and benign on palpation, ND/NT Musculoskeletal: No clubbing Integumentary: No rashes Neurological: normal speech, confused Patient with history of cirrhosis status post TIPS procedure, right carotid endarterectomy, [id number] diabetes, hepatic encephalopathy on lactulose presented to the emergency department with chief complaint of chest pain. His high-sensitivity troponins were negative and trended flat, echocardiogram was obtained which showed mild left ventricular hypertrophy, normal left ventricular systolic function with a EF of 60 to 65%, normal wall motion and normal diastolic function. Additional evaluation with CT abdomen pelvis was performed as his lipase was borderline around 100. CT abdomen pelvis showed mild retroperitoneal edema centered on the head of the pancreas and uncinate process raising concern for focal acute pancreatitis. It is suspected that his pain is related to acute pancreatitis, he was given supportive care with IV fluids and initially clear liquids advance to soft today. He is tolerating his diet and no longer complaining of pain, has no abdominal tenderness on exam and is stable for discharge at this time. Patient's baseline mental status is oriented x 1-2 ever since his TIPS procedure he has been suffering with hepatic encephalopathy. He is on lactulose 30 g / 45 mL 4 times daily in addition to Xifaxan, atorvastatin, metformin and Protonix. Refills of his medications have been sent to his pharmacy [facility] in [place]. He will be discharged into the care of his family members at this time as they work on long-term placement at a jail, also recommend close follow-up with hepatology at [facility] for further evaluation of TIPS procedure with considera tion for revision. Please follow-up with your primary care doctor in 1 to 2 weeks Resume home medications as previously prescribed Please also arrange for follow-up with hepatology at [facility] for evaluation of TIPS and ongoing hepatic encephalopathy Vital Signs/Physical Exam: Temp Pulse Resp BP Pulse Ox 98.3 F 81 16 120/57 L 98 05/11/24 12:00 05/11/24 12:00 05/11/24 12:00 05/11/24 12:00 05/11/24 12:00 Laboratory Data at Discharge: WBC 5.80 thou/uL (4.3-10.9) 05/11/24 05:18 Hgb 7.9 g/dL (13.6-17.9) L 05/11/24 05:18 Hct 23.3 % (39.6-49.0) L 05/11/24 05:18 Plt Count 118 thou/uL (152-406) L 05/11/24 05:18 PT 11.7 SECONDS (9.4-12.5) 05/08/24 13:11 INR 1.05 05/08/24 13:11 Sodium 134 mEq/L (136-145) L D 05/11/24 05:18 Potassium 4.2 mEq/L (3.5-5.1) 05/11/24 05:18 BUN 8 mg/dL (7-18) 05/11/24 05:18 Creatinine 1.01 mg/dL (0.70-1.30) 05/11/24 05:18 Glucose 358 mg/dL (74-106) H 05/11/24 05:18 Phosphorus 2.5 mg/dL (2.5-4.9) 05/11/24 05:18 Magnesium 1.9 mg/dL (1.6-2.4) 05/11/24 05:18 Total Bilirubin 0.6 mg/dL (0.2-1.0) 05/11/24 05:18 AST 16 U/L (15-37) 05/11/24 05:18 ALT 30 U/L (16-61) 05/11/24 05:18 Alkaline Phosphatase 119 U/L (45-117) H 05/11/24 05:18 Triglycerides 62 mg/dL (<150) 05/09/24 04:27 Cholesterol 95 mg/dL (<200) 05/09/24 04:27 HDL Cholesterol 58 mg/dL (40-60) 05/09/24 04:27 Cholesterol/HDL Ratio 1.64 05/09/24 04:27 Lipase 101 U/L (13-75) H 05/11/24 05:18 Home Medications: Aspirin [Aspirin EC 81 MG] DAILY 05/08/24 Atorvastatin Calcium [Lipitor*] 20 mg PO BEDTIME #30 tab 05/11/24 Lactulose [Cephulac*] 45 ml PO QID 30 Days #5400 ml 05/11/24 Metformin ER [Glucophage ER*] 500 mg PO BEDTIME #30 tab.sa 05/11/24 Pantoprazole [Protonix Tab*] 40 mg PO BID #60 tab 05/11/24 Rifaximin [Xifaxan] 550 mg PO BID #60 tab 05/11/24 New Medications: Lactulose [Cephulac*] 45 ml PO QID 30 Days #5400 ml Metformin ER [Glucophage ER*] 500 mg PO BEDTIME #30 tab.sa Atorvastatin Calcium [Lipitor*] 20 mg PO BEDTIME #30 tab Pantoprazole [Protonix Tab*] 40 mg PO BID #60 tab Rifaximin [Xifaxan] 550 mg PO BID #60 tab Physician Discharge Instructions: Patient with history of cirrhosis status post TIPS procedure, right carotid endarterectomy, [id number] diabetes, hepatic encephalopathy on lactulose presented to the emergency department with chief complaint of chest pain. His high-sensitivity troponins were negative and trended flat, echocardiogram was obtained which showed mild left ventricular hypertrophy, normal left ventricular systolic function with a EF of 60 to 65%, normal wall motion and normal diastolic function. Additional evaluation with CT abdomen pelvis was performed as his lipase was borderline around 100. CT abdomen pelvis showed mild retroperitoneal edema centered on the head of the pancreas and uncinate process raising concern for focal acute pancreatitis. It is suspected that his pain is related to acute pancreatitis, he was given supportive care with IV fluids and initially clear liquids advance to soft today. He is tolerating his diet and no longer complaining of pain, has no abdominal tenderness on exam and is stable for discharge at this time. Patient's baseline mental status is oriented x 1-2 ever since his TIPS procedure he has been suffering with hepatic encephalopathy. He is on lactulose 30 g / 45 mL 4 times daily in addition to Xifaxan, atorvastatin, metformin and Protonix. Refills of his medications have been sent to his pharmacy [facility] in [place]. He will be discharged into the care of his family members at this time as they work on long-term placement at a jail, also recommend close follow-up with hepatology at [facility] for further evaluation of TIPS procedure with consideration for revision. Please follow-up with your primary care doctor in 1 to 2 weeks Resume home medications as previously prescribed Please also arrange for follow-up with hepatology at [facility] for evaluation of TIPS and ongoing hepatic encephalopathy Diet: Humphreys Activity: Fall precautions Followup: NONE,NONE [Primary Care Provider] - 1 Week Time spent managing pt's care (in minutes): 36
== END 2024-05-11 13:07 | disposition home health service (06) | DRG 438 ==
LOC: ER 12:22 → ERHOLD 17:05 → 2ND 18:01
PROVIDERS: ADMIT Internal Medicine; ATTEND Hospitalist
DX: K85.20 Alcohol induced acute pancreatitis without necrosis or infection (principal); G93.41 Metabolic encephalopathy; D61.818 Other pancytopenia; K76.82 Hepatic encephalopathy; E78.5 Hyperlipidemia, unspecified; E11.9 Type 2 diabetes mellitus without complications; K70.30 Alcoholic cirrhosis of liver without ascites; F17.210 Nicotine dependence, cigarettes, uncomplicated; Z79.82 Long term (current) use of aspirin; Z11.52 Encounter for screening for COVID-19; Z79.84 Long term (current) use of oral hypoglycemic drugs; Z86.73 Personal history of transient ischemic attack (TIA), and cerebral infarction without residual deficits; Z79.899 Other long term (current) drug therapy
CPT/HCPCS: 36415; 71045; 74177; 80048; 80053; 80061; 80076; 80307; 81001; 82077; 82140; 82607; 82728; 82947; 83540; 83690; 83735; 84100; 84439; 84443; 84466; 84484; 85025; 85610; 87804; 87811; 93005; 93306; 96372; 97116; 97161; 99284; J7030; Q9967

== ENCOUNTER 2024-06-12 21:45 | Inpatient (IN) | payer OTHER ==
--- OUTSIDE RECORDS SUMMARY | 2024-06-12 22:01 | XMS REPORT | Continuity of Care Document ---
Author Name Unknown Address [address] [facility] [address] [place] [address] [facility] thconnect Address [address] [facility] [facility] [address] [place] [address] Care Team Providers Care House Principal Name Role Phone OSMANY ARIELLE Hernandez Primary Care Physician Unavail able SHARAD ZAMUDIO Attending Clinician Unavailable JOSE LUIS WATERMAN Attending Clinician Unava ilable LAB90 Attending Clinician Unavailable KELSEA ARROYO Attending Clinician UnavailBo Palomo Attending Clinician Unavailable CHAD CHARLES Attending Clinician UnavailLOLA Boo Attending Clinician UnavailVitaliy Street Attending Clinician Unavailable Vlad Couch Attending Clinician Unavailrizwana shearer Doctor Unassigned, [place] Attending Clinician U Shaheen Vega Attending Clinician Unavailable Jane Dai Attending Clinician Unavailable GENARO MALLORY Attending Clinician Unavailable GENARO MALLORY Attending Clinician Unavailable Ayaka PAIGE, Mikey Epps Attending Clinician [phone] Wali Carter MD Attending Clinician [phone] Bo Steele Attending Clinician Kayla Helm LVN Attending Clinician [phone] OLVIN JOSE Attending Clinician UnavailOLVIN Perez Attending Clinician Unavaila cookie Schultz MD, Joseph Attending Clinician [phone] [facility] PAIGE, Aidan Attending Clinician +[phone] ANN DUNN Attending Clinician Unavailable Jewel PAIGE, Rj Ruano Attending Clinician [phone] Maikel DO, Artem Davis Attending Clinician [phone] Asher Aguilera MD Attending Clinician [phone] Ann Dunn DO Attending Clinician [phone] Kurtis Mckinley DO Attending Clinician [phone] Gisel Montgomery CRNA Attending Clinician [phone] Aamir Caldera MD Attending Clinician +[phone] Jonnathan Florez MD Attending Clinician [phone] MARLENY PARKER Attending Clinician Unavailable Lauro DO ShahabDaniela Attending Clinician [phone] Alonso Enriquez MD Attending Clinician [phone] Marleny Parker MD Attending Clinician +[phone] JOSH HAINES Attending Clinician Unav ailJOSH Olson Attending Clinician Unav ailMilan Bran DO Attending Clinician +[phone] Josh Hinds MD Attending Clinician [phone] Jim Attending Clinician Unavailable Arielle Benitez Attending Clinician Unavailable Lisa Zayas Attending Clinician Unavailable Aamir Smith Attending Clinician UnavailCUBA Tarango Attending Clinician Unav Cuba Arriaza MD Attending Clinician + BATSHEVA WHIPPLE Attending Clinician Unavailable Batsheva Whipple OD Attending Clinician [phone] GENARO RUBIO Attending Clinician Unava ilable Jodi STEINERAlexus Attending Clinician [phone] Genaro Rubio MD Attending Clinician +[phone] AMILCAR OTERO Attending Clinician Unavailable AMILCAR OTERO Attending Clinician Unavailable Amilcar Otero MD Attending Clinician [phone] RODERICK SEPULVEDA Attending Clinician Unavailable Vlad Couch Admitting Clinician UnavailWALI Bruner Admitting Clinician Unavailable OLVIN JOSE Admitting Clinician UnavailASHER Patel Admitting Clinician Unavailable Asher Aguilera MD Admitting Clinician [phone] ALONSO ENRIQUEZ Admitting Clinician Unavailable Alonso Enriquez MD Admitting Clinician [phone] JOSH HAINES Admitting Clinician Unav ailable Nini_FRIDA Admitting Clinician Unavailable GENARO RUBIO Admitting Clinician Unava ilable Genaro Rubio MD Admitting Clinician [phone] Payers Payer Name Policy Type Policy Number Effective Date Expirati on Date Source [facility] ON/OFF 9 [id number] 2024 00:00:00 AETNA (O) [id number] 2023 00:00:00 NIKI ANDERSON FROM [facility] [id number] 2021 00:00:00 Problems Condition Name Condition Details Condition Category Status Onset Date Resolution Date Last Treatment Date Treating Clinician Comments Source Alcoholic cirrhosis of liver without ascites (multi HCC) Alcoholic cirrhosis of liver without ascites (multi HCC) Disease Active 06-06 00:00: 00 Keli patel Hospital discharge follow-up Hospital discharge follow-up Disease Active 06-06 00:00: 00 Keli patel Hepatic encephalop athy Hepatic encephalop athy Disease Active 03-21 00:00: 00 [facility] Altered mental status, unspecifie d altered mental status type Altered mental status, unspecifie d altered mental status type Disease Active 6-13 00:00: 00 [facility] Upper GI bleed Upper GI bleed Disease Active 5-28 00:00: 00 [facility] History of right MCA stroke History of right MCA stroke Disease Active 5-21 00:00: 00 [facility] Cerebrovas cular accident (CVA), unspecifie d mechanism Cerebrovas cular accident (CVA), unspecifie d mechanism Disease Active 5-19 00:00: 00 [facility] Carotid stenosis, symptomati c, with infarction Carotid stenosis, symptomati c, with infarction Disease Active 5-02 00:00: 00 [facility] Thrombocyt openia Thrombocyt openia Disease Active 4-05 00:00: 00 [facility] History of CVA (cerebrova scular accident) History of CVA (cerebrova scular accident) Disease Active 1- 00:00: 00 Keli patel History of right-side d carotid endarterec paty History of right-side d carotid endarterec paty Disease Active 1- 00:00: 00 Keli Durbin l Traumatic fracture of ribs of right side with pneumothor ax Traumatic fracture of ribs of right side with pneumothor ax Disease Active 3-23 00:00: 00 [facility] Decreased range of motion of wrist Decreased range of motion of wrist Disease Active 11-28 00:00: 00 [facility] Stiffness of joint, forearm, right Stiffness of joint, forearm, right Disease Active 11-28 00:00: 00 [facility] Stiffness of finger joint of right hand Stiffness of finger joint of right hand Disease Active 11-28 00:00: 00 [facility] Hypersensi tivity, subsequent encounter Hypersensi tivity, subsequent encounter Disease Active 11-28 00:00: 00 [facility] Fracture, radius and ulna, shaft, right, closed, with routine healing, subsequent encounter Fracture, radius and ulna, shaft, right, closed, with routine healing, subsequent encounter Disease Active 04-08 00:00: 00 [facility] Advanced cirrhosis of liver (multi HCC) Advanced cirrhosis of liver (multi HCC) Disease Active Keli Downey - Externa l DM type 2 with diabetic mixed hyperlipid emia (multi HCC) DM type 2 with diabetic mixed hyperlipid emia (multi HCC) Disease Active Keli Downey - Externa l HTN (hypertens ion) HTN (hypertens ion) Disease Active Keli Seybold - Externa l History of TIA (transient ischemic attack) History of TIA (transient ischemic attack) Disease Active Keli Downey - Externa l GERD (gastroeso phageal reflux disease) GERD (gastroeso phageal reflux disease) Disease Active Keli Downey - Externa l Anemia Anemia Disease Active Keli Downey - Externa l Cerebrovas cular accident (CVA), unspecifie d mechanism Cerebrovas cular accident (CVA), unspecifie d mechanism Disease Resolve d 4-03 00:00: 00 2024-01-14 00:00:00 2024-01-14 23:28:49 [facility] Allergies, Adverse Reactions, Alerts Allergy Name Allergy Type Status Severity Reaction(s) Onset Date Inactive Date Treating Clinician Comments Source No Known Allergie s DA Active U 04-03 00:00: 00 [facility] LIVER Drug Class Active N/V 02-08 00:00: 00 [facility] Liver Propensi ty to adverse reaction s Active Nausea and/or Vomiting 02-08 00:00: 00 [facility] NO KNOWN ALLERGIE S Drug Class Active [facility] Social History Social Habit Start Date Stop Date Quantity Comments Source Sexual orientation Mary Downey - External History of tobacco use Cigarette Smoker Keli sen - External History of Social function 2024-06-06 00:00:00 2024-06-06 00:00:00 Keli Downey - External Cigarettes smoked current (pack per day) - Reported 2024-06-06 00:00:00 2024-06-06 00:00:00 Keli Seybold - External Cigarette pack-years 2024-06-06 00:00:00 2024-06-06 00:00:00 Keli Downey - External Education 2024-06-06 00:00:00 2024-06-06 00:00:00 13 Keli Mariefrancy - External Alcohol Comment 2024-06-06 00:00:00 2024-06-06 00:00:00 quit alcohol this year. He was drinking about 6 ppd for years. Keli Downey - External Tobacco use and exposure 2024-06-06 00:00:00 2024-06-06 00:00:00 Smokeless tobacco non-user Keli Salazarfrancy - External Alcoholic beverage intake 2024-06-06 00:00:00 2024-06-06 00:00:00 Ex-drinker (finding) Keli Salazarfrancy - External Sex 2024-05-09 13:16:52 2024-05-09 13:16:52 Male (finding) Keli joannefrancy - External Alcohol intake 2024-01-14 00:00:00 2024-01-14 00:00:00 Current drinker of alcohol (finding) [facility] Exposure to SARS-CoV-2 (event) 2022-01-03 00:00:00 2022-01-13 09:17:00 Not sure [facility] Sex assigned at 1960 00:00:00 1960 00:00:00 Keli Downey - External Smoking Status Start Date Stop Date Source Ex-smoker 2024-06-06 00:00:00 2024-06-06 00:00:00 Mary Salazarfrancy - External Medications Ordered Medication Name Filled Medication Name Start Date Stop Date Current Medication? Ordering Clinician Indication Dosage Frequency Signature (SIG) Comments Components Source Atorvastati n Calcium (Lipitor) 20 MG oral Tablet 06-06 10:43: 31 06-06 00:00 :00 No 20mg QD Take 1 tablet (20 mg total) by mouth daily. Keli patel ASPIRIN 81 OR 06-06 10:43: 07 06-06 00:00 :00 No Take by mouth. Keli Durbin l Lactulose 10 GM/15ML oral Solution 06-06 10:29: 53 06-06 00:00 :00 No 20g [id number] 3D Take 30 mL (20 g total) by mouth 3 times daily. Keli patel Pantoprazol e Sodium 40 MG oral Tablet Delayed Response 06-06 09:54: 39 Yes 40mg Take 1 tablet (40 mg total) by mouth in the morning and 1 tablet (40 mg total) in the evening. Take with meals. Keli patel Metformin HCl ER 500 MG oral TABLET SR 24 HR 06-06 09:53: 35 Yes 500mg QD Take 1 tablet (500 mg total) by mouth daily (with breakfast) . Keli patel Lisinopril 10 MG oral Tablet 06-06 09:53: 35 Yes 10mg QD Take 1 tablet (10 mg total) by mouth daily. Keli patel Lactulose 10 GM/15ML oral Solution 06-06 00:00: 00 Yes [id number] 30g Q.25D Take 45 mL (30 g total) by mouth 4 times daily. Keli patel Aspirin (Aspirin 81) 81 MG oral Tablet Delayed Response 06-06 00:00: 00 Yes [id number] 81mg QD Take 1 tablet (81 mg total) by mouth daily. Keli patel Atorvastati n Calcium (Lipitor) 20 MG oral Tablet 06-06 00:00: 00 Yes [id number] 20mg QD Take 1 tablet (20 mg total) by mouth nightly. Keli patel Xifaxan 550 MG oral Tablet 05-27 00:00: 00 Yes 1{tbl} Q.5D Take 1 tablet by mouth 2 times daily. Keli patel Lactulose 10 GM/15ML oral Solution 05-23 16:01: 53 Yes 20g Q.[id number] 3D Take 30 mL (20 g total) by mouth 3 times daily. Keli patel Metformin HCl ER 500 MG oral TABLET SR 24 HR 05-23 15:58: 32 Yes 500mg QD Take 1 tablet (500 mg total) by mouth daily (with breakfast) . Keli patel ASPIRIN 81 OR 05-23 15:58: 32 Yes Take by mouth. Keli patel Atorvastati n Calcium (Lipitor) 20 MG oral Tablet 05-23 15:58: 32 Yes 20mg QD Take 1 tablet (20 mg total) by mouth daily. Keli patel Pantoprazol e Sodium 40 MG oral Tablet Delayed Response 05-23 15:58: 32 Yes 40mg Take 1 tablet (40 mg total) by mouth in the morning and 1 tablet (40 mg total) in the evening. Take with meals. Keli patel lactulose 300 mL (Dilute to 700 mL with saline or water) enema 1 Enema 03-22 10:00: 00 03-22 11:38 :00 No 1{enema } 1 Enema, Rectal, ONCE, 1 dose, On Thu03/22/24 at 0500, Routine [facility] lactulose 300 mL (Dilute to 700 mL with saline or water) enema 1 Enema 03-22 05:36: 01 Yes 1{enema } 1 Enema, Rectal, Q8HPRN, Starting on Thu03/22/24 at 0036, Until Discontinu ed, Routine, Encephalop hathy, If pt is not tolerating po lactulose [facility] lactulose 300 mL (Dilute to 700 mL with saline or water) enema 1 Enema 03-22 03:00: 00 03-22 05:36 :22 No 1{enema } 1 Enema, Rectal, Q8H, First dose on Thu03/21/24 at 2200, Until Discontinu ed, Routine [facility] thiamine (VITAMIN B1) 100 mg in NaCl 0.9% (NS) piggyback 03-22 02:45: 00 03-24 13:59 :00 Yes 100mg IV Piggyback, DAILY, 3 doses, First dose on Thu03/21/24 at 2145, Last dose on Thu03/23/24 at 0900, 50 mL [facility] Sliding Scale Insulin - Lispro (HumaLOG) 03-22 02:00: 00 Yes Subcutaneo us, TID MEALS+HS, First dose on Thu03/21/24 at 2100, Until Discontinu ed, Routine [facility] atorvastati n (LIPITOR) tablet 40 mg 03-22 02:00: 00 Yes 40mg [facility] aspirin chewable tablet 81 mg 03-22 01:00: 00 Yes 81mg 81 mg, Oral, DAILY, First dose (after last modificati on) on Thu03/21/24 at 1999, Until Discontinu ed, Routine [facility] enoxaparin (LOVENOX) injection 40 mg 03-22 01:00: 00 Yes 40mg 40 mg, Subcutaneo us, DAILY, First dose (after last modificati on) on Thu03/21/24 at 1999, Until Discontinu ed, Routine [facility] foLIC acid (FOLATE) tablet 1 mg 03-22 01:00: 00 Yes 1mg 1 mg, Oral, DAILY, First dose (after last modificati on) on Thu03/21/24 at 1999, Until Discontinu ed, Routine [facility] lactulose (CEPHULAC) 10 gram/15 mL (15 mL) oral solution 45 mL 03-22 01:00: 00 Yes 45mL 45 mL, Oral, TID, First dose on Thu03/21/24 at 1999, Until Discontinu ed, Routine [facility] rifAXIMin (XIFAXAN) tablet 550 mg 03-22 01:00: 00 Yes 550mg 550 mg, Oral, BID, First dose on Thu03/21/24 at 1999, Until Discontinu ed, Routine, Is rifaximin being order for hepatic encephalop athy? Yes, Does this patient have a failure of lactulose therapy? Yes [facility] pantoprazol e (PROTONIX) EC tablet 40 mg 03-22 01:00: 00 Yes 40mg 40 mg, Oral, BID, First dose on Thu03/21/24 at 2000, Until Discontinu ed, Routine [facility] nicotine (NICODERM) 14 mg/24 hr patch 1 Patch 03-22 01:00: 00 Yes 1{patch } [facility] glucagon (GLUCAGEN DIAGNOSTIC KIT) injection 1 mg 03-22 00:04: 00 Yes 1mg 1 mg, Intramuscu lar, PRN, Starting on Thu03/21/24 at 1904, Until Discontinu ed, MEGAN, Blood Glucose < or = 70 mg/dL and patient is NPO, unable to swallow or has mental changes. [facility] dextrose 50 % in water (D50W) injection 25 mL 03-22 00:04: 00 Yes 25mL 25 mL, Slow IV Push, PRN, Starting on Thu03/21/24 at 1904, Until Discontinu ed, MEGAN, Blood Glucose < or = 70 mg/dL and patient is NPO, unable to swallow or has mental status changes. [facility] acetaminoph en (TYLENOL) tablet 650 mg 03-22 00:03: 35 Yes 650mg [facility] lactulose 300 mL (Dilute to 700 mL with saline or water) enema 1 Enema 03-21 21:30: 00 03-21 21:30 :00 No 1{enema } 1 Enema, Rectal, ONCE, 1 dose, On Thu03/21/24 at 1630, MEGAN [facility] NaCl 0.9% (NS) bolus infusion 1,000 mL 03-21 21:30: 00 03-21 23:35 :00 No 1000mL at 999 mL/hr, 1,000 mL, IV Infusion, ONCE, 1 dose, On Thu03/21/24 at 1630, MEGAN [facility] Ferrous Gluconate 324 (38 Fe) MG oral Tablet 03-11 00:00: 00 06-06 00:00 :00 No 1{tbl} QD Take 1 tablet (324 mg total) by mouth daily. Keli patel thiamine (VITAMIN B1) 250 mg in NaCl 0.9% (NS) piggyback 03-04 14:00: 00 03-24 13:59 :00 No 250mg IV Piggyback, DAILY, 20 doses, First dose (after last modificati on) on Thu03/04/24 at 0900, Last dose on Thu03/23/24 at 0900, 50 mL [facility] thiamine mononitrate , vit B1, 250 mg Tab 03-04 00:00: 00 06-03 04:59 :00 No [id number] 250mg Take 250 mg by mouth in the morning for 90 days. [facility] lactulose 10 gram/15 mL (15 mL) oral solution 03-04 00:00: 00 03-04 00:00 :00 No [id number] 45mL Take 45 mL by mouth in the morning and 45 mL at noon and 45 mL in the evening. [facility] rifAXIMin 550 mg tablet 03-04 00:00: 00 03-04 00:00 :00 No [id number] 550mg Take 1 tablet by mouth in the morning and 1 tablet in the evening. [facility] insulin lispro (human) (HumaLOG U-100) injection 3 Units 03-03 13:00: 00 Yes 3U 3 Units, Subcutaneo us, TID MEALS, First dose on Thu03/03/24 at 0800, Until Discontinu ed, Routine [facility] thiamine (VITAMIN B1) 500 mg in NaCl 0.9% (NS) piggyback 03-03 13:00: 00 03-03 17:27 :44 No 500mg IV Piggyback, TID, 21 doses, First dose (after last reorder) on Thu03/03/24 at 0800, Last dose on Thu03/09/24 at 2000, 50 mL [facility] thiamine (VITAMIN B1) 500 mg in NaCl 0.9% (NS) piggyback 03-02 19:00: 00 03-03 02:10 :00 No 500mg IV Piggyback, TID, 2 doses, First dose (after last modificati on) on Thu03/02/24 at 1400, Last dose on Thu03/02/24 at 2000, 50 mL [facility] melatonin (MELATIN) tablet 3 mg 03-02 04:15: 00 03-02 04:08 :00 No 3mg 3 mg, Oral, ONCE, 1 dose, On Thu03/01/24 at 2315, Routine [facility] rifAXIMin (XIFAXAN) tablet 550 mg 02-28 21:00: 00 Yes 550mg 550 mg, Oral, BID, First dose on Thu02/29/24 at 1600, Until Discontinu ed, Routine, Is rifaximin being order for hepatic encephalop athy? Yes, Does this patient have a failure of lactulose therapy? Yes [facility] LORazepam (ATIVAN) injection 0.5 mg 02-28 19:30: 00 02-28 20:16 :00 No .5mg 0.5 mg, Slow IV Push, ONCE, 1 dose, On Thu02/29/24 at 1430, Routine [facility] lactulose (CEPHULAC) 10 gram/15 mL (15 mL) oral solution 45 mL 02-28 13:00: 00 Yes 45mL 45 mL, Oral, TID, First dose (after last modificati on) on Thu02/29/24 at 0800, Until Discontinu ed, Routine [facility] thiamine (VITAMIN B1) 500 mg in NaCl 0.9% (NS) piggyback 02-28 13:00: 00 03-02 14:30 :25 No 500mg IV Piggyback, TID, 21 doses, First dose on Thu02/29/24 at 0800, Last dose on Thu03/06/24 at 2000, 50 mL [facility] Potassium Bicarb-Citr ic Acid (EFFER-K) effervescen t tablet 40 mEq 02-27 12:00: 00 02-27 21:36 :00 No 40meq 40 mEq, Oral, ONCE, 1 dose, On 02/28/24 at 0700, Routine [facility] QUEtiapine (SEROQUEL) tablet 25 mg 02-27 07:30: 00 02-27 07:54 :00 No 25mg 25 mg, Oral, ONCE, 1 dose, On Thu02/28/24 at 0230, Routine [facility] melatonin (MELATIN) tablet 3 mg 02-27 04:45: 00 02-27 05:04 :00 No 3mg 3 mg, Oral, ONCE, 1 dose, On 02/27/24 at 2345, Routine [facility] hydrOXYzine (ATARAX) tablet 10 mg 02-27 03:00: 00 02-27 02:16 :00 No 10mg 10 mg, Oral, ONCE, 1 dose, On 02/27/24 at 2200, Routine [facility] foLIC acid (FOLATE) tablet 1 mg 02-25 14:00: 00 Yes 1mg 1 mg, Oral, DAILY, First dose on Thu02/26/24 at 0900, Until Discontinu ed, Routine [facility] aspirin chewable tablet 81 mg 02-25 14:00: 00 Yes 81mg 81 mg, Oral, DAILY, First dose on Thu02/26/24 at 0900, Until Discontinu ed, Routine [facility] atorvastati n (LIPITOR) tablet 40 mg 02-25 02:00: 00 Yes 40mg 40 mg, Oral, QHS, First dose on Thu02/25/24 at 2100, Until Discontinu ed, [facility] pantop[facility] (PROTONIX) EC tablet 40 mg 02-25 01:00: 00 Yes 40mg 40 mg, Oral, BID, First dose on Thu02/25/24 at 2000, Until Discontinu ed, Routine [facility] Sliding Scale Insulin - Lispro (HumaLOG) 02-24 22:00: 00 Yes Subcutaneo us, TID MEALS+HS, First dose on Thu02/25/24 at 1700, Until Discontinu ed, Routine [facility] enoxaparin (LOVENOX) injection 40 mg 02-24 22:00: 00 Yes 40mg 40 mg, Subcutaneo us, DAILY, First dose on Thu02/25/24 at 1700, Until Discontinu ed, Routine [facility] lactulose 300 mL (Dilute to 700 mL with saline or water) enema 1 Enema 02-24 21:55: 08 Yes 1{enema } 1 Enema, Rectal, Q4HPRN, Starting on Thu02/25/24 at 1655, Until Discontinu ed, Routine, Encephalop hathy, If patient does not have 2-3 bowel movements [facility] lactulose (CEPHULAC) 10 gram/15 mL (15 mL) oral solution 30 mL 02-24 19:30: 00 02-28 11:18 :54 No 30mL 30 mL, Oral, TID, First dose (after last modificati on) on Thu02/25/24 at 1430, Until Discontinu ed, Routine [facility] glucagon (GLUCAGEN DIAGNOSTIC KIT) injection 1 mg 02-24 18:01: 43 Yes 1mg [facility] dextrose 50 % in water (D50W) injection 25 mL 02-24 18:01: 43 Yes 25mL [facility] acetaminoph en (TYLENOL) tablet 650 mg 02-24 17:58: 33 Yes 650mg 650 mg, Oral, Q6HPRN, Starting on Thu02/25/24 at 1258, Until Discontinu ed, Routine, Pain (scale 1-3) [facility] lactulose (CEPHULAC) 10 gram/15 mL oral solution 30 mL 02-24 16:15: 00 02-24 16:29 :00 No 30mL 30 mL, Oral, ONCE, 1 dose, On Thu02/25/24 at 1115, MEGAN [facility] metFORMIN 500 mg/5 mL SSRR 02-24 13:56: 30 Yes 500mg Take 500 mg by mouth at bedtime. [facility] atorvastati n (LIPITOR) 40 mg tablet 02-24 13:56: 30 Yes 40mg Take 1 tablet by mouth at bedtime. [facility] lactulose 300 mL (Dilute to 700 mL with saline or water) enema 1 Enema 02-14 16:31: 35 Yes 1{enema } 1 Enema, Rectal, Q4HPRN, Starting on Thu02/15/24 at 1131, Until Discontinu ed, Routine, Encephalop hathy [facility] foLIC acid (FOLATE) tablet 1 mg 02-14 14:00: 00 Yes 1mg 1 mg, Oral, DAILY, First dose on Thu02/15/24 at 0900, Until Discontinu ed, Routine [facility] metFORMIN 500 mg/5 mL SSRR 02-14 10:43: 12 Yes 500mg Take 500 mg by mouth at bedtime. [facility] atorvastati n (LIPITOR) 40 mg tablet 02-14 10:43: 12 Yes 40mg Take 1 tablet by mouth at bedtime. [facility] aspirin 81 mg chewable tablet 02-14 00:00: 00 Yes [id number] 81mg Take 1 tablet by mouth in the morning. [facility] foLIC acid 1 mg tablet 02-14 00:00: 00 Yes [id number] 1mg Take 1 tablet by mouth in the morning. [facility] pantoprazol e 40 mg EC tablet 02-14 00:00: 00 Yes [id number] 40mg Take 1 tablet by mouth in the morning and 1 tablet in the evening. [facility] lactulose 10 gram/15 mL (15 mL) oral solution 02-14 00:00: 00 03-04 00:00 :00 No [id number] 15mL Take 15 mL by mouth in the morning. [facility] lactulose (CEPHULAC) 10 gram/15 mL (15 mL) oral solution 15 mL 02-13 19:00: 00 Yes 15mL 15 mL, Oral, DAILY, First dose on 02/14/24 at 1400, Until Discontinu ed, Routine [facility] NaCl 0.9% (NS) bolus infusion 250 mL 02-13 18:45: 00 02-13 18:15 :00 No 250mL at 999 mL/hr, 250 mL, IV Piggyback, ONCE, 1 dose, On Baxter 02/14/24 at 1345, MEGAN [facility] pantoprazol e (PROTONIX) EC tablet 40 mg 02-13 13:00: 00 Yes 40mg 40 mg, Oral, BID, First dose on Baxter 02/14/24 at 0800, Until Discontinu ed, Routine [facility] hydralAZINE (APRESOLINE ) injection 5 mg 02-13 01:34: 44 02-13 12:37 :55 No 5mg 5 mg, Slow IV Push, Q4HPRN, Starting on 02/13/24 at 2034, Until Baxter 02/14/24 at 0737, Routine, DBP=>100; SBP=>180 [facility] pantoprazol e (PROTONIX) injection 40 mg 02-13 01:00: 00 02-13 12:36 :45 No 40mg 40 mg, Slow IV Push, Q12H, First dose on 02/13/24 at 2000, Until Discontinu ed [facility] hydralAZINE (APRESOLINE ) injection 5 mg 02-12 22:30: 00 02-12 21:51 :00 No 5mg 5 mg, Slow IV Push, ONCE, 1 dose, On [facility] 02/13/24 at 1730, MEGAN [facility] iopamidol (ISOVUE 300-500 mL) injection 360 mL 02-12 21:45: 00 02-12 21:45 :00 No [id number] 360mL 360 mL, Intravenou s, ONCE, 1 dose, On 02/13/24 at 1645, Routine [facility] simethicone (GAS RELIEF (SIMETHICON E)) 40 mg/0.6 mL drops 02-10 15:58: 00 02-10 17:06 :49 No PRN, Starting on Thu02/11/24 at 1058, Until Thu02/11/24 at 1206, Routine, Intra-op [facility] atorvastati n (LIPITOR) tablet 40 mg 02-10 02:00: 00 Yes 40mg 40 mg, Oral, QHS, First dose on Thu02/10/24 at 2100, Until Discontinu ed, Routine [facility] peg-electro lyte soln (GOLYTELY) 236-22.74-6 .74 -5.86 gram solution 4,000 mL 02-09 23:00: 00 02-09 22:48 :00 No 4000mL 4,000 mL, Oral, ONCE, 1 dose, On Thu02/10/24 at 1800, Routine [facility] bisacodyL (DULCOLAX) tablet 5 mg 02-09 21:00: 00 02-09 21:03 :00 No 5mg 5 mg, Oral, ONCE, 1 dose, On Thu02/10/24 at 1600, Routine [facility] bisacodyL (DULCOLAX) tablet 5 mg 02-09 19:15: 00 02-09 19:40 :00 No 5mg 5 mg, Oral, ONCE, 1 dose, On Thu02/10/24 at 1415, Routine [facility] aspirin chewable tablet 81 mg 02-09 14:00: 00 Yes 81mg 81 mg, Oral, DAILY, First dose on Thu02/10/24 at 0900, Until Discontinu ed, Routine [facility] cefTRIAXone (ROCEPHIN) 1,000 mg in NaCl 0.9% (NS) 100 mL VIAL-MATE 02-09 13:00: 00 02-12 15:30 :00 No 1000mg 1,000 mg, IV Piggyback, Q24H ABX, 4 doses, First dose (after last reorder) on Thu02/10/24 at 0800, Last dose on Thu02/13/24 at 0800, Administer over 30 Minutes, 100 mL, Reason for Anti-Infec tive: Empiric Therapy for Suspected Infection, Empiric Therapy Site: Abdominal, Duration of therapy: 5 days [facility] Sliding Scale Insulin - Lispro (HumaLOG) 02-08 17:00: 00 Yes Subcutaneo us, TID MEALS+HS, First dose on Thu02/09/24 at 1200, Until Discontinu ed, Routine [facility] glucagon (GLUCAGEN DIAGNOSTIC KIT) injection 1 mg 02-08 14:40: 15 Yes 1mg 1 mg, Intramuscu lar, PRN, Starting on Thu02/09/24 at 0940, Until Discontinu ed, MEGAN, Blood Glucose < or = 70 mg/dL and patient is NPO, unable to swallow or has mental changes. [facility] dextrose 50 % in water (D50W) injection 25 mL 02-08 14:40: 15 Yes 25mL 25 mL, Slow IV Push, PRN, Starting on Thu02/09/24 at 0940, Until Discontinu ed, MEGAN, Blood Glucose < or = 70 mg/dL and patient is NPO, unable to swallow or has mental status changes. [facility] metFORMIN 500 mg/5 mL SSRR 02-08 13:56: 05 Yes 500mg Take 500 mg by mouth at bedtime. [facility] atorvastati n (LIPITOR) 40 mg tablet 02-08 13:28: 10 Yes 40mg Take 1 tablet by mouth at bedtime. [facility] ondansetron (ZOFRAN (PF)) injection 4 mg 02-08 11:37: 05 Yes 4mg 4 mg, Slow IV Push, Q6HPRN, Nausea and Vomiting (N/V), Starting on Thu02/09/24 at 0637, Doses of ondansetro n 16 mg and above need to be administer ed via IV piggyback. For Dose >=24mg ECG monitoring is advisable. [facility] cefTRIAXone (ROCEPHIN) 1,000 mg in NaCl 0.9% (NS) 100 mL VIAL-MATE 02-08 11:15: 00 02-08 12:01 :00 No 1000mg 1,000 mg, IV Piggyback, ONCE, 1 dose, On Thu02/09/24 at 0615, Administer over 30 Minutes, 100 mL, Reason for Anti-Infec tive: Empiric Therapy for Suspected Infection, Empiric Therapy Site: Abdominal, Duration of therapy: Once (ED) [facility] iohexol (OMNIPAQUE 350 BULK-100 mL) injection 100 mL 02-08 08:14: 00 02-08 08:14 :00 No [id number] 100mL 100 mL, Intravenou s, ONCE, 1 dose, On Thu02/09/24 at 0330, Routine [facility] pantoprazol e (PROTONIX) 80 mg in NaCl 0.9%(NS) 500 mL IV infusion (CNR) 02-08 07:45: 00 02-12 20:38 :16 No 8mg/h 8 mg/hr (50 mL/hr), IV Infusion, CONTINUOUS , Starting on Thu02/09/24 at 0245 [facility] ondansetron (ZOFRAN (PF)) injection 4 mg 02-08 07:45: 00 02-08 06:52 :00 No 4mg 4 mg, Slow IV Push, ONCE, 1 dose, On Thu02/09/24 at 0245, [facility] 80 mg in NaCl 0.9% (NS) 20 mL syringe 02-08 07:30: 00 02-08 07:49 :00 No 80mg 80 mg, IV Push, ONCE, 1 dose, On Thu02/09/24 at 0230, Administer over 2 Minutes, 20 mL [facility] NaCl 0.9% (NS) bolus infusion 1,000 mL 02-08 07:30: 00 02-08 06:45 :00 No 1000mL at 999 mL/hr, 1,000 mL, IV Infusion, ONCE, 1 dose, On Thu02/09/24 at 0230, [facility] ticagrelor (BRILINTA) tablet 90 mg 02-02 16:39: 00 02-02 17:43 :00 No 90mg 90 mg, Oral, ONCE, 1 dose, On Thu02/03/24 at 1145, Routine [facility] aspirin tablet 325 mg 02-02 14:00: 00 Yes 325mg 325 mg, Oral, DAILY, First dose on Thu02/03/24 at 0900, Until Discontinu ed, Routine [facility] aspirin 325 mg tablet 02-02 00:00: 00 02-14 00:00 :00 No [id number] 325mg Take 1 tablet by mouth in the morning for 180 days. [facility] ticagrelor (BRILINTA) tablet 180 mg 02-01 14:45: 00 02-01 15:54 :00 No 180mg 180 mg, Oral, ONCE, 1 dose, On Thu02/02/24 at 0945, MEGAN [facility] clopidogreL (PLAVIX) 75 mg tablet 75 mg 02-01 14:00: 00 02-01 14:38 :42 No 75mg 75 mg, Oral, DAILY, First dose on Thu02/02/24 at 0900, Until Discontinu ed, Routine [facility] ticagrelor (BRILINTA) 90 mg tablet 02-01 00:00: 00 02-14 00:00 :00 No [id number] 90mg Take 1 tablet by mouth in the morning and 1 tablet in the evening. Do all this for 90 days. [facility] clopidogreL (PLAVIX) 300 mg tablet 300 mg 01-31 21:45: 00 01-31 22:23 :00 No 300mg 300 mg, Oral, ONCE, 1 dose, On Thu02/01/24 at 1645, MEGAN [facility] iopamidol (ISOVUE 300-500 mL) injection 300 mL 01-31 18:45: 00 01-31 18:45 :00 No [id number] 300mL 300 mL, Intravenou s, ONCE, 1 dose, On Thu02/01/24 at 1345, Routine [facility] ceFAZolin (ANCEF) injection 01-31 16:20: 00 01-31 16:20 :00 No Slow IV Push, PRN, Starting on Thu02/01/24 at 1120, Until Thu02/01/24 at 1120, MEGAN, Intra-op [facility] aspirin tablet 650 mg 01-31 15:00: 00 01-31 14:00 :00 No [id number] 650mg 650 mg, Oral, ONCE, 1 dose, On Thu02/01/24 at 1000, Routine [facility] lidocaine 1% (XYLOCAINE) 10 mg/mL (1 %) injection 01-31 14:52: 08 01-31 14:52 :08 No PRN, Starting on Thu02/01/24 at 0952, Until Thu02/01/24 at 0952, Routine, Intra-op [facility] FENTanyl PF (SUBLIMAZE (PF)) injection 01-31 14:50: 41 01-31 16:18 :44 No Slow IV Push, PRN, Starting on Thu02/01/24 at 0950, Until Thu02/01/24 at 1118, Rout[facility], [facility] mg 01-31 14:00: 00 02-01 14:14 :59 No 81mg 81 mg, Oral, DAILY, First dose on Thu02/01/24 at 0900, Until Discontinu ed, Routine [facility] atorvastati n (LIPITOR) tablet 40 mg 01-31 02:00: 00 Yes 40mg 40 mg, Oral, QHS, First dose on Thu01/31/24 at 2100, Until Discontinu ed, Routine [facility] famotidine (PEPCID AC) tablet 20 mg 01-31 01:00: 00 Yes 20mg 20 mg, Oral, BID, First dose on Thu01/31/24 at 2000, Until Discontinu ed, Routine [facility] iopamidol (ISOVUE 370-500 mL) injection 120 mL 01-30 22:30: 00 01-30 21:00 :00 No [id number] 120mL 120 mL, Intravenou s, ONCE, 1 dose, On Thu01/31/24 at 1730, Routine [facility] enoxaparin (LOVENOX) injection 40 mg 01-30 22:15: 00 Yes 40mg 40 mg, Subcutaneo us, Q24H, First dose on Thu01/31/24 at 1715, Until Discontinu ed, Routine [facility] nicotine (NICODERM) 14 mg/24 hr patch 1 Patch 01-30 22:00: 00 Yes 1{patch } [facility] labetaloL (NORMODYNE) injection 10 mg 01-30 20:50: 00 Yes 10mg [facility] NaCl 0.9% (NS) injection 5 mL 01-30 20:33: 29 Yes 5mL 5 mL, Slow IV Push, PRN - SEE INSTRUCTIO NS, Starting on Thu01/31/24 at 1533, Until Discontinu ed, 10 mL [facility] metFORMIN 500 mg/5 mL SSRR 12-19 09:56: 56 Yes 500mg Take 500 mg by mouth in the morning. [facility] lisinopriL 10 mg tablet 12-19 09:56: 52 12-18 00:00 :00 No 10mg Take 1 tablet by mouth in the morning. [facility] apixaban 5 mg tablet 12-19 00:00: 00 02-01 00:00 :00 No [id number] 5mg Take 1 tablet by mouth in the morning and 1 tablet in the evening. Indication s: acute thromboemb olic stroke, Right ICA ruptured plaque [facility] aspirin 81 mg chewable tablet 12-19 00:00: 00 02-01 00:00 :00 No [id number] 81mg Take 1 tablet by mouth in the morning. [facility] apixaban (ELIQUIS) tablet 5 mg 12-18 16:30: 00 Yes 5mg 5 mg, Oral, BID, First dose on Thu12/19/23 at 1130, Until Discontinu ed, Routine
Indicatio ns: DVT/PE [facility] nicotine 14 mg/24 hr patch 12-18 00:00: 00 Yes [id number] 1{patch } Apply 1 Patch to area(s) every 24 (twenty-fo ur) hours. [facility] apixaban 5 mg tablet 12-18 00:00: 00 12-19 00:00 :00 No [id number] 5mg Take 1 tablet by mouth in the morning and 1 tablet in the evening. Indication s: acute thromboemb olic stroke, Right ICA ruptured plaque [facility] aspirin chewable tablet 81 mg 12-17 14:00: 00 Yes 81mg 81 mg, Oral, DAILY, First dose on Thu12/18/23 at 0900, Until Discontinu ed, Routine [facility] atorvastati n (LIPITOR) 40 mg tablet 12-17 02:00: 00 Yes 40mg Take 1 tablet by mouth at bedtime. [facility] heparin 25,000 Units/250 mL in NS 12-16 22:00: 00 12-18 16:27 :10 No 15U/kg/ h 15 Units/kg/h r ?86.2 kg (12.93 mL/hr), IV Infusion, TITRATE, Parameters in Admin. Instr., Starting on Lore 12/17/23 at 1700
CA UTION - Must program rate using programmab le infusion pump. Check with the ordering provider first prior to any administra tion should the patient be on existing/a dditional anticoagul ant therapy.&n bsp; Range, Dosing and Testing: FOR [place], [facility], AND [facility] ONLY - aPTT < 35: Increase rate by 350 units/hr - aPTT 35-40: Increase rate by 200 units/hr - aPTT 40-60: NO CHANGE&nbs p;- aPTT 60-100: Decrease rate by 100 units/hr - aPTT 101-150: Hold 30 minutes, decrease rate by 250 units/hr - aPTT > 150: Hold 60 minutes, decrease rate by 350 units/hr If aPTT > 100 twice, notify LETTY Newsome &n bsp;Check aPTT 4 hours after initiation , then Q4H after every change, when therapeuti c range of aPTT of 40-60 reached, check Q4H until 2 consecutiv e values within therapeuti c range, then check Q12H.
[facility] polyethylen e glycol 3350 powder 17 g 12-16 14:44: 54 Yes 17g 17 g, Oral, QDAILYPRN, Starting on Thu12/17/23 at 0944, Until Discontinu ed, Routine, Constipati on [facility] enoxaparin (LOVENOX) injection 40 mg 12-16 14:00: 00 12-16 16:28 :50 No 40mg 40 mg, Subcutaneo us, DAILY, First dose on Thu12/17/23 at 0900, Until Discontinu ed, Routine [facility] aspirin chewable tablet 81 mg 12-16 14:00: 00 12-16 16:28 :58 No 81mg 81 mg, Oral, DAILY, First dose on Thu12/17/23 at 0900, Until Discontinu ed, Routine [facility] clopidogreL (PLAVIX) 75 mg tablet 75 mg 12-16 14:00: 00 12-16 16:28 :58 No 75mg 75 mg, Oral, DAILY, First dose on Thu12/17/23 at 0900, Until Discontinu ed, Routine [facility] Sliding Scale Insulin - Lispro (HumaLOG) 12-16 02:00: 00 Yes Subcutaneo us, TID MEALS+HS, First dose on Thu12/16/23 at 2100, Until Discontinu ed, Routine [facility] famotidine (PEPCID AC) tablet 20 mg 12-16 01:00: 00 Yes 20mg 20 mg, Oral, BID, First dose on Thu12/16/23 at 2000, Until Discontinu ed, Routine [facility] NaCl 0.9% (NS) 1000 mL + KCL 20 mEq 12-15 23:45: 00 12-16 02:18 :59 No IV Infusion, at 75 mL/hr, CONTINUOUS , Starting on Thu12/16/23 at 1845, Until Thu12/16/23 at 2118, Routine [facility] glucagon (GLUCAGEN DIAGNOSTIC KIT) injection 1 mg 12-15 23:33: 00 Yes 1mg 1 mg, Intramuscu lar, PRN, Starting on Thu12/16/23 at 1833, Until Discontinu ed, MEGAN, blood glucose is < or = 70 mg/dL and patient is unable to swallow or has mental status changes [facility] dextrose 50 % in water (D50W) injection 25 mL 12-15 23:33: 00 Yes 25mL 25 mL, Slow IV Push, PRN, Starting on Thu12/16/23 at 1833, Until Discontinu ed, MEGAN, Blood Glucose < or = 70 mg/dL and patient is unable to swallow or has mental status changes. [facility] labetaloL (NORMODYNE) injection 10 mg 12-15 23:31: 37 Yes 10mg 10 mg, Slow IV Push, Administer over 2 Minutes, [id number], 5 doses, Starting on Thu12/16/23 at 1831, Until Discontinu ed, Routine, Hypertensi ve Crisis SBP > 220 - See Admin Instructio ns [facility] NaCl 0.9% (NS) IV infusion 1,000 mL 12-15 23:30: 00 12-16 16:17 :44 No 1000mL at 150 mL/hr, IV Infusion, CONTINUOUS , Starting on Thu12/16/23 at 1830, Until Lore 12/17/23 at 1117, Routine [facility] enoxaparin (LOVENOX) injection 40 mg 12-15 22:00: 00 12-15 23:35 :01 No 40mg 40 mg, Subcutaneo us, DAILY, First dose on Thu12/16/23 at 1700, Until Discontinu ed, Routine [facility] perflutren protein-A microsphr (OPTISON) injection 3 mL 12-15 21:00: 00 12-15 21:00 :00 No [id number] 3mL 3 mL, IV Push, ONCE, 1 dose, On Thu12/16/23 at 1600, Routine [facility] atorvastati n (LIPITOR) tablet 80 mg 12-15 20:30: 00 12-15 21:39 :00 No 80mg 80 mg, Oral, ONCE, 1 dose, On Thu12/16/23 at 1530, Routine [facility] clopidogreL (PLAVIX) 300 mg tablet 300 mg 12-15 20:30: 00 12-15 21:39 :00 No 300mg 300 mg, Oral, ONCE, 1 dose, On Thu12/16/23 at 1530, Routine [facility] aspirin tablet 325 mg 12-15 20:30: 00 12-15 21:39 :00 No 325mg 325 mg, Oral, ONCE, 1 dose, On Thu12/16/23 at 1530, Routine [facility] iopamidol (ISOVUE 370-500 mL) injection 120 mL 12-15 18:45: 00 12-15 18:35 :00 No [id number] 120mL 120 mL, Intravenou s, ONCE, 1 dose, On Thu12/16/23 at 1345, Routine [facility] NaCl 0.9% (NS) injection 5 mL 12-15 18:14: 53 Yes 5mL 5 mL, Slow IV Push, PRN - SEE INSTRUCTIO NS, Starting on Thu12/16/23 at 1314, Until Discontinu ed, 10 mL [facility] No known medications 01-13 13:03: 28 No [facility] Immunizations Ordered Immunization Name Filled Immunization Name Date Status Comments Source TDAP 2021-12-04 00:00:00 Completed [facility] TDAP 2021-12-04 00:00:00 Completed [facility] Pfizer COVID-19 Vaccine Pfizer COVID-19 Vaccine 2020-12-29 00:00:00 Completed SARS-COV-2 COVID-19 PFIZER VACCINE 2020-12-29 00:00:00 Completed [facility] SARS-COV-2 COVID-19 PFIZER VACCINE 2020-12-29 00:00:00 Completed [facility] Pfizer COVID-19 Vaccine Pfizer COVID-19 Vaccine 2020-12-09 00:00:00 Completed SARS-COV-2 COVID-19 PFIZER VACCINE 2020-12-09 00:00:00 Completed [facility] SARS-COV-2 COVID-19 PFIZER VACCINE 2020-12-09 00:00:00 Completed [facility] Td 2014-11-20 00:00:00 Completed [facility] Td 2014-11-20 00:00:00 Completed [facility] TD, NOS Unknown Completed [facility] SARS-COV-2 COVID-19 PFIZER VACCINE Unknown Completed [facility] SARS-COV-2 COVID-19 PFIZER VACCINE Unknown Completed [facility] TDAP Unknown Completed [facility] TD, NOS Unknown Completed [facility] SARS-COV-2 COVID-19 PFIZER VACCINE Unknown Completed [facility] SARS-COV-2 COVID-19 PFIZER VACCINE Unknown Completed [facility] TDAP Unknown Completed [facility] TD, NOS Unknown Completed [facility] SARS-COV-2 COVID-19 PFIZER VACCINE Unknown Completed [facility] SARS-COV-2 COVID-19 PFIZER VACCINE Unknown Completed [facility] TDAP Unknown Completed [facility] TD, NOS Unknown Completed [facility] SARS-COV-2 COVID-19 PFIZER VACCINE Unknown Completed [facility] SARS-COV-2 COVID-19 PFIZER VACCINE Unknown Completed [facility] TDAP Unknown Completed [facility] HEPLISAV HEP B, ADULT 2 DOSE, IM Unknown Completed [facility] TD, NOS Unknown Completed [facility] SARS-COV-2 COVID-19 PFIZER VACCINE Unknown Completed [facility] SARS-COV-2 COVID-19 PFIZER VACCINE Unknown Completed [facility] TDAP Unknown Completed [facility] TD, NOS Unknown Completed [facility] SARS-COV-2 COVID-19 PFIZER VACCINE Unknown Completed [facility] SARS-COV-2 COVID-19 PFIZER VACCINE Unknown Completed [facility] TDAP Unknown Completed [facility] HEPLISAV HEP B, ADULT 2 DOSE, IM Unknown Completed [facility] TD, NOS Unknown Completed [facility] SARS-COV-2 COVID-19 PFIZER VACCINE Unknown Completed [facility] SARS-COV-2 COVID-19 PFIZER VACCINE Unknown Completed [facility] TDAP Unknown Completed [facility] HEPLISAV HEP B, ADULT 2 DOSE, IM Unknown Completed [facility] TD, NOS Unknown Completed [facility] SARS-COV-2 COVID-19 PFIZER VACCINE Unknown Completed [facility] SARS-COV-2 COVID-19 PFIZER VACCINE Unknown Completed [facility] TDAP Unknown Completed [facility] HEPLISAV HEP B, ADULT 2 DOSE, IM Unknown Completed [facility] TD, NOS Unknown Completed [facility] SARS-COV-2 COVID-19 PFIZER VACCINE Unknown Completed [facility] SARS-COV-2 COVID-19 PFIZER VACCINE Unknown Completed [facility] TDAP Unknown Completed [facility] HEPLISAV HEP B, ADULT 2 DOSE, IM Unknown Completed [facility] TD, NOS Unknown Completed [facility] SARS-COV-2 COVID-19 PFIZER VACCINE Unknown Completed [facility] SARS-COV-2 COVID-19 PFIZER VACCINE Unknown Completed [facility] TDAP Unknown Completed [facility] HEPLISAV HEP B, ADULT 2 DOSE, IM Unknown Completed [facility] TD, NOS Unknown Completed [facility] SARS-COV-2 COVID-19 PFIZER VACCINE Unknown Completed [facility] SARS-COV-2 COVID-19 PFIZER VACCINE Unknown Completed [facility] TDAP Unknown Completed [facility] HEPLISAV HEP B, ADULT 2 DOSE, IM Unknown Completed [facility] TD, NOS Unknown Completed [facility] SARS-COV-2 COVID-19 PFIZER VACCINE Unknown Completed [facility] SARS-COV-2 COVID-19 PFIZER VACCINE Unknown Completed [facility] TDAP Unknown Completed [facility] HEPLISAV HEP B, ADULT 2 DOSE, IM Unknown Completed [facility] TD, NOS Unknown Completed [facility] SARS-COV-2 COVID-19 PFIZER VACCINE Unknown Completed [facility] SARS-COV-2 COVID-19 PFIZER VACCINE Unknown Completed [facility] TDAP Unknown Completed [facility] TD, NOS Unknown Completed [facility] SARS-COV-2 COVID-19 PFIZER VACCINE Unknown Completed [facility] SARS-COV-2 COVID-19 PFIZER VACCINE Unknown Completed [facility] TDAP Unknown Completed [facility] TD, NOS Unknown Completed [facility] SARS-COV-2 COVID-19 PFIZER VACCINE Unknown Completed [facility] SARS-COV-2 COVID-19 PFIZER VACCINE Unknown Completed [facility] TDAP Unknown Completed [facility] TD, NOS Unknown Completed [facility] SARS-COV-2 COVID-19 PFIZER VACCINE Unknown Completed [facility] SARS-COV-2 COVID-19 PFIZER VACCINE Unknown Completed [facility] TDAP Unknown Completed [facility] TD, NOS Unknown Completed [facility] SARS-COV-2 COVID-19 PFIZER VACCINE Unknown Completed [facility] SARS-COV-2 COVID-19 PFIZER VACCINE Unknown Completed [facility] TDAP Unknown Completed [facility] TD, NOS Unknown Completed [facility] SARS-COV-2 COVID-19 PFIZER VACCINE Unknown Completed [facility] SARS-COV-2 COVID-19 PFIZER VACCINE Unknown Completed [facility] TDAP Unknown Completed [facility] TD, NOS Unknown Completed [facility] SARS-COV-2 COVID-19 PFIZER VACCINE Unknown Completed [facility] SARS-COV-2 COVID-19 PFIZER VACCINE Unknown Completed [facility] TDAP Unknown Completed [facility] Vital Signs Vital Name Observation Time Observation Value Comments S ource Systolic blood pressure 2024-06-06 14:50:00 124 mm[Hg] Keli valdivia - External Diastolic blood pressure 2024-06-06 14:50:00 76 mm[Hg] Keli valdivia - External Heart rate 2024-06-06 14:50:00 96 /min Sherin Downey - External Body temperature 2024-06-06 14:50:00 36.72 Jasmyne Keli Downey - External Respiratory rate 2024-06-06 14:50:00 18 /min Keli Downey - External Body height 2024-06-06 14:50:00 185.4 cm Darya Salazarold - External Body weight 2024-06-06 14:50:00 86.183 kg Darya vasques Seybold - External BMI 2024-06-06 14:50:00 25.07 kg/m2 Darya vasques Seybold - External Oxygen saturation in Arterial blood by Pulse oximetry 2024-06-06 14:50:00 99 /min Keli rivas - External Body height 2024-05-23 20:48:00 188 cm Darya Downey - External Body weight 2024-05-23 20:48:00 83.462 kg Darya Downey - External BMI 2024-05-23 20:48:00 23.62 kg/m2 Darya vasques Seybold - External Systolic blood pressure 2024-03-22 15:00:00 154 mm[Hg] [facility] Diastolic blood pressure 2024-03-22 15:00:00 99 mm[Hg] [facility] Respiratory rate 2024-03-22 15:00:00 18 /min [facility] Oxygen saturation in Arterial blood by Pulse oximetry 2024-03-22 15:00:00 96 /min [facility] Heart rate 2024-03-22 13:00:00 83 /min [facility] Body temperature 2024-03-21 20:14:00 36.61 Jasmyne [facility] Body weight 2024-03-21 20:14:00 95.255 kg [facility] BMI 2024-03-21 20:14:00 27.71 kg/m2 [facility] Systolic blood pressure 2024-03-04 12:47:00 145 mm[Hg] RN notified [facility] Diastolic blood pressure 2024-03-04 12:47:00 72 mm[Hg] RN notified [facility] Heart rate 2024-03-04 12:47:00 89 /min [facility] Body temperature 2024-03-04 12:47:00 36.44 Jasmyne [facility] Respiratory rate 2024-03-04 12:47:00 18 /min [facility] Oxygen saturation in Arterial blood by Pulse oximetry 2024-03-04 12:47:00 99 /min [facility] Body height 2024-02-26 18:35:00 185.4 cm [facility] Body weight 2024-02-26 18:35:00 95.255 kg [facility] BMI 2024-02-26 18:35:00 27.71 kg/m2 [facility] Systolic blood pressure 2024-02-15 21:29:00 104 mm[Hg] [place] [facility] Diastolic blood pressure 2024-02-15 21:29:00 82 mm[Hg] [facility] Heart rate 2024-02-15 21:29:00 77 /min [facility] Body temperature 2024-02-15 21:29:00 37.22 Jasmyne [facility] Respiratory rate 2024-02-15 21:29:00 16 /min [facility] Oxygen saturation in Arterial blood by Pulse oximetry 2024-02-15 21:29:00 96 /min [facility] [facility] [place] Body weight 2024-02-14 13:00:00 87.5 kg [facility] BMI 2024-02-14 13:00:00 24.77 kg/m2 [facility] Body height 2024-02-09 18:58:00 188 cm [facility] Systolic blood pressure 2024-02-11 14:11:00 137 mm[Hg] [facility] Diastolic blood pressure 2024-02-11 14:11:00 68 mm[Hg] [facility] Heart rate 2024-02-11 14:11:00 66 /min [facility] Body temperature 2024-02-11 14:11:00 36.39 Jasmyne [facility] Respiratory rate 2024-02-11 14:11:00 18 /min [facility] Oxygen saturation in Arterial blood by Pulse oximetry 2024-02-11 14:11:00 97 /min [facility] Body height 2024-02-09 18:58:00 188 cm [facility] Body weight 2024-02-09 18:58:00 82 kg [facility] BMI 2024-02-09 18:58:00 23.21 kg/m2 [facility] Systolic blood pressure 2024-02-03 15:58:00 125 mm[Hg] [facility] Diastolic blood pressure 2024-02-03 15:58:00 68 mm[Hg] [facility] Heart rate 2024-02-03 15:58:00 66 /min Un[facility] Body temperature 2024-02-03 15:58:00 36.44 Jasmyne [facility] Oxygen saturation in Arterial blood by Pulse oximetry 2024-02-03 15:58:00 99 /min [facility] Respiratory rate 2024-02-03 12:07:00 17 /min [facility] Body height 2024-01-31 20:31:00 188 cm [facility] Body weight 2024-01-31 20:31:00 81.647 kg [facility] BMI 2024-01-31 20:31:00 23.11 kg/m2 [facility] Systolic blood pressure 2024-01-14 15:31:00 138 mm[Hg] [facility] Diastolic blood pressure 2024-01-14 15:31:00 69 mm[Hg] [facility] Heart rate 2024-01-14 15:30:00 63 /min Unive [facility] Body height 2024-01-14 15:30:00 188 cm [facility] Body weight 2024-01-14 15:30:00 87.408 kg [facility] BMI 2024-01-14 15:30:00 24.74 kg/m2 [facility] Oxygen saturation in Arterial blood by Pulse oximetry 2024-01-14 15:30:00 98 /min [facility] Systolic blood pressure 2023-12-20 12:00:00 107 mm[Hg] [facility] Diastolic blood pressure 2023-12-20 12:00:00 52 mm[Hg] [facility] Heart rate 2023-12-20 12:00:00 62 /min Unive [facility] Respiratory rate 2023-12-20 12:00:00 16 /min [facility] Oxygen saturation in Arterial blood by Pulse oximetry 2023-12-20 12:00:00 95 /min [facility] Body temperature 2023-12-20 09:18:00 36.83 Jasmyne [facility] Body height 2023-12-18 04:00:00 188 cm [facility] Body weight 2023-12-16 18:14:00 86.183 kg [facility] BMI 2023-12-16 18:14:00 24.39 kg/m2 [facility] Systolic blood pressure 2022-01-13 14:29:00 169 mm[Hg] [facility] Diastolic blood pressure 2022-01-13 14:29:00 82 mm[Hg] [facility] Heart rate 2022-01-13 14:29:00 77 /min Unive [facility] Body temperature 2022-01-13 14:29:00 36.44 Jasmyne [facility] Body height 2022-01-13 14:29:00 188 cm [facility] Body weight 2022-01-13 14:29:00 85.594 kg [facility] BMI 2022-01-13 14:29:00 24.23 kg/m2 [facility] Oxygen saturation in Arterial blood by Pulse oximetry 2022-01-13 14:29:00 97 /min [facility] Systolic blood pressure 2024-02-28 07:55:00 141 mm[Hg] [facility] Diastolic blood pressure 2024-02-28 07:55:00 59 mm[Hg] [facility] Heart rate 2024-02-28 07:55:00 83 /min Unive [facility] Body temperature 2024-02-28 07:55:00 36.33 Jasmyne [facility] Respiratory rate 2024-02-28 07:55:00 16 /min [facility] Oxygen saturation in Arterial blood by Pulse oximetry 2024-02-28 07:55:00 96 /min [facility] Body height 2024-02-26 18:35:00 185.4 cm [facility] Body weight 2024-02-26 18:35:00 95.255 kg [facility] BMI 2024-02-26 18:35:00 27.71 kg/m2 [facility] Systolic blood pressure 2024-02-15 16:31:00 117 mm[Hg] [facility] Diastolic blood pressure 2024-02-15 16:31:00 56 mm[Hg] [facility] Heart rate 2024-02-15 16:31:00 74 /min Unive [facility] Body temperature 2024-02-15 16:30:00 36.94 Jasmyne [facility] Respiratory rate 2024-02-15 16:30:00 16 /min [facility] Oxygen saturation in Arterial blood by Pulse oximetry 2024-02-15 16:30:00 95 /min [facility] Body weight 2024-02-14 13:00:00 87.5 kg [facility] BMI 2024-02-14 13:00:00 24.77 kg/m2 [facility] Body height 2024-02-09 18:58:00 188 cm [facility] Systolic blood pressure 2024-02-03 15:58:00 125 mm[Hg] [facility] Diastolic blood pressure 2024-02-03 15:58:00 68 mm[Hg] [facility] Heart rate 2024-02-03 15:58:00 66 /min Unive [facility] Body temperature 2024-02-03 15:58:00 36.44 Jasmyne [facility] Oxygen saturation in Arterial blood by Pulse oximetry 2024-02-03 15:58:00 99 /min [facility] Respiratory rate 2024-02-03 12:07:00 17 /min [facility] Body height 2024-01-31 20:31:00 188 cm [facility] Body weight 2024-01-31 20:31:00 81.647 kg [facility] BMI 2024-01-31 20:31:00 23.11 kg/m2 [facility] Procedures Procedure Date / Time Performed Performing Clinician Source [id number] 2024-04-19 00:00:00 MONJO01 [facility] [id number] 2024-04-19 00:00:00 MONJO01 [facility] [id number] 2024-04-19 00:00:00 MONJO01 [facility] [id number] 2024-04-19 00:00:00 MONJO01 [facility] [id number] 2024-04-19 00:00:00 MOHSH.03 [facility] [id number] 2024-04-19 00:00:00 MOHSH.03 [facility] [id number] 2024-04-19 00:00:00 MOHSH.03 [facility] [id number] 2024-04-15 00:00:00 MONJO01 [facility] [id number] 2024-04-15 00:00:00 MONJO01 [facility] [id number] 2024-04-15 00:00:00 MONJO01 [facility] [id number] 2024-04-15 00:00:00 MONJO01 [facility] [id number] 2024-04-15 00:00:00 MONJO01 [facility] POCT GLUCOSE (AUTOMATED) 2024-03-22 12:40:00 Wali Carter [facility] POCT GLUCOSE (AUTOMATED) 2024-03-22 02:31:00 Wali Carter [facility] AMMONIA, PLASMA 2024-03-22 02:28:00 Celia Mar [facility] EKG-12 LEAD 2024-03-21 23:53:44 Celia Mar [facility] URINALYSIS 2024-03-21 23:28:00 Celia Mar [facility] CBC WITH DIFF 2024-03-21 21:42:00 Celia Mar [facility] GLYCOSYLATED HEMOGLOBIN (A1C) 2024-03-21 21:42:00 Daniel Calderón [facility] LACTIC ACID WHOLE BLOOD 2024-03-21 21:42:00 Celia Mar [facility] CT HEAD WO CONTRAST 2024-03-21 21:28:28 Ricardo Marmich [facility] XR CHEST 1 VW 2024-03-21 20:53:34 Celia Mar [facility] LIPASE 2024-03-21 20:52:00 Ricardo Marmich [facility] FERRITIN SERUM 2024-03-21 20:52:00 [facility] TROPONIN I 2024-03-21 20:52:00 [facility] COMP. METABOLIC PANEL (69261) 2024-03-21 20:52:00 Ricardo Marmich [facility] IRON PANEL 2024-03-21 20:52:00 Daniel Calderón [facility] ETHANOL 2024-03-21 20:52[facility]00 [facility] 2024-03-21 20:52:00 Celia Mar [facility] POCT GLUCOSE (AUTOMATED) 2024-03-04 13:34:00 [facility] 2024-03-04 13:12:00 Cuco Ramos [facility] MAGNESIUM 2024-03-04 10:27:00 Cuco Ramos [facility] BASIC METABOLIC PANEL (NA, K , CL, CO2, GLUCOSE, BUN, CREATININE, CA) 2024-03-04 10:27:00 Cuco Ramos [facility] POCT GLUCOSE (AUTOMATED) 2024-03-04 01:02:00 Olvin Jose [facility] POCT GLUCOSE (AUTOMATED) 2024-03-03 21:38:00 Olvin Jose [facility] POCT GLUCOSE (AUTOMATED) 2024-03-03 17:30:00 Olvin Jsoe [facility] POCT GLUCOSE (AUTOMATED) 2024-03-03 14:09:00 Olvin Jose [facility] MAGNESIUM 2024-03-03 09:17:00 Cuco Ramos [facility] BASIC METABOLIC PANEL (NA, K , CL, CO2, GLUCOSE, BUN, CREATININE, CA) 2024-03-03 09:17:00 Cuco Ramos [facility] CBC WITH DIFF 2024-03-03 09:17:00 Cuco Ramos [facility] POCT GLUCOSE (AUTOMATED) 2024-03-03 01:18:00 Damon [facility] POCT GLUCOSE (AUTOMATED) 2024-03-02 21:47:00 Damon [facility] URINE CULTURE 2024-03-02 20:21:00 Richard [facility] HEPATIC FUNCTION PANEL (8007 6) (ALB,T.PRO,BILI T,BU/BC,ALT,AST,ALK PHOS) 2024-03-02 19:08:00 Cuco Ramos [facility] BASIC METABOLIC PANEL (NA, K , CL, CO2, GLUCOSE, BUN, CREATININE, CA) 2024-03-02 19:08:00 [facility] 2024-03-02 19:02:00 Damon [facility] POCT GLUCOSE (AUTOMATED) 2024-03-02 13:01:00 Damon [facility] POCT GLUCOSE (AUTOMATED) 2024-03-02 02:05:00 Damon [facility] POCT GLUCOSE (AUTOMATED) 2024-03-01 22:32:00 Damon [facility] POCT GLUCOSE (AUTOMATED) 2024-03-01 17:43:00 Damon [facility] POCT GLUCOSE (AUTOMATED) 2024-03-01 14:53:00 Damon [facility] MAGNESIUM 2024-03-01 14:38:00 Winston Alcaraz [facility] COMP. METABOLIC PANEL ([id number]) 2024-03-01 14:38:00 Winston Alcaraz [facility] CBC WITHOUT DIFF 2024-03-01 14:38:00 Winston Alcaraz [facility] POCT GLUCOSE (AUTOMATED) 2024-03-01 01:48:00 Olvin Jose [facility] AMMONIA, PLASMA 2024-02-29 22:38:00 Winston Alcaraz [facility] POCT GLUCOSE (AUTOMATED) 2024-02-29 22:37:00 Olvin Jose [facility] POCT GLUCOSE (AUTOMATED) 2024-02-29 20:04:00 [facility] 2024-02-29 17:41:00 [facility] VIT[facility] B1 (THIAMINE), WHOLE BLOOD 02-28 15:37:00 Winston Alcaraz [facility] POCT GLUCOSE (AUTOMATED) 2024-02-29 15:36:00 [facility] 2024-02-29 10:28:00 Winston Alcaraz [facility] BASIC METABOLIC PANEL (NA, K , CL, CO2, GLUCOSE, BUN, CREATININE, CA) 2024-02-29 10:28:00 Winston Alcaraz [facility] CBC WITHOUT DIFF 2024-02-29 10:28:00 Winston Alcaraz [facility] POCT GLUCOSE (AUTOMATED) 2024-02-28 23:11:00 Olvin Jose [facility] CBC WITH DIFF 2024-02-28 10:17:00 Cuco Ramos [facility] CBC WITH DIFF 2024-02-28 10:17:00 Cuco Ramos [facility] MAGNESIUM 2024-02-28 09:49:00 Cuco Ramos [facility] BASIC METABOLIC PANEL (NA, K , CL, CO2, GLUCOSE, BUN, CREATININE, CA) 2024-02-28 09:49:00 Cuco Ramos [facility] THYROID STIMULATING HORMONE 2024-02-28 09:49:00 Winston Alcaraz [facility] MAGNESIUM 2024-02-28 09:49:00 Cuco Ramos [facility] THYROID STIMULATING HORMONE 2024-02-28 09:49:00 Winston Alcaraz [facility] BASIC METABOLIC PANEL (NA, K , CL, CO2, GLUCOSE, BUN, CREATININE, CA) 2024-02-28 09:49:00 Cuco Ramos [facility] POCT GLUCOSE (AUTOMATED) 2024-02-28 01:04:00 Damon [facility] POCT GLUCOSE (AUTOMATED) 2024-02-28 01:04:00 Damon [facility] POCT GLUCOSE (AUTOMATED) 2024-02-27 21:57:00 Damon [facility] POCT GLUCOSE (AUTOMATED) 2024-02-27 21:57:00 Damon [facility] VITAMIN B6, PLASMA 2024-02-27 20:26:00 Allen [facility] POCT GLUCOSE (AUTOMATED) 2024-02-27 20:12:00 Damon [facility] POCT GLUCOSE (AUTOMATED) 2024-02-27 20:12:00 Damon [facility] VITAMIN B1 (THIAMINE), WHOLE BLOOD 02-26 19:23:00 Anisa Villa [facility] CBC WITH DIFF 2024-02-27 14:48:00 Richard Cuco [facility] MAGNESIUM 2024-02-27 14:48:00 Cuco Ramos [facility] BASIC METABOLIC PANEL (NA, K , CL, CO2, GLUCOSE, BUN, CREATININE, CA) 2024-02-27 14:48:00 Cuco Ramos [facility] VITAMIN B12, LEVEL 2024-02-27 14:48:00 Allen [facility] ETHANOL 2024-02-27 14:48:00 Allen [facility] MAGNESIUM 2024-02-27 14:48:00 Cuco Ramos [facility] VITAMIN B12, LEVEL 2024-02-27 14:48:00 Allen [facility] BASIC METABOLIC PANEL (NA, K , CL, CO2, GLUCOSE, BUN, CREATININE, CA) 2024-02-27 14:48:00 Cuco Ramos [facility] ETHANOL 2024-02-27 14:48:00 Allen [facility] CBC WITH DIFF 2024-02-27 14:48:00 Cuco Ramos [facility] POCT GLUCOSE (AUTOMATED) 2024-02-27 14:34:00 [facility] 2024-02-27 14:34:00 Damon [facility] POCT GLUCOSE (AUTOMATED) 2024-02-27 01:39:00 Damon [facility] POCT GLUCOSE (AUTOMATED) 2024-02-27 01:39:00 [facility]) 2024-02-26 23:00:00 Damon [facility] POCT GLUCOSE (AUTOMATED) 2024-02-26 23:00:00 [facility]ACENTESIS/PERITONECENT ESIS WITH IMAGING 2024-02-26 18:58:59 Cuco Ramos [facility] POCT GLUCOSE (AUTOMATED) 2024-02-26 17:03:00 Olvin Jose [facility] POCT GLUCOSE (AUTOMATED) 2024-02-26 17:03:00 Damon [facility] POCT GLUCOSE (AUTOMATED) 2024-02-26 14:25:00 Damon [facility] POCT GLUCOSE (AUTOMATED) 2024-02-26 14:25:00 Damon [facility] CBC WITH DIFF 2024-02-26 09:23:00 Richard Cuco Charles [facility] MAGNESIUM 2024-02-26 09:23:00 Richard Cuco Melvin [facility] BASIC METABOLIC PANEL (NA, K , CL, CO2, GLUCOSE, BUN, CREATININE, CA) 2024-02-26 09:23:00 Richard Cuco Charles [facility] MAGNESIUM 2024-02-26 09:23:00 Baljeet Ramosdaisha Charles [facility] BASIC METABOLIC PANEL (NA, K , CL, CO2, GLUCOSE, BUN, CREATININE, CA) 2024-02-26 09:23:00 Baljeet Ramosdaisha Charles [facility] CBC WITH DIFF 2024-02-26 09:23:00 Cuco Ramos [facility] POCT GLUCOSE (AUTOMATED) 2024-02-26 02:17:00 Olvin Jose [facility] POCT GLUCOSE (AUTOMATED) 2024-02-26 02:17:00 Olvin Jose [facility] BLOOD CULTURE SCREEN 2024-02-25 21:31:00 Baljeet Ramosald [facility] BLOOD CULTURE SCREEN 2024-02-25 21:31:00 Cuco Ramos [facility] US ABDOMEN LIMITED WITH DOPPLER 19:33:36 Cuco Ramos Melvin [facility] US ABDOMEN LIMITED WITH DOPPLER 19:33:36 Cuco Ramos [facility] URINALYSIS 2024-02-25 16:56:00 Lino [facility] URINE DRUG (IMMUNOASSAY) - COMPREHENSIVE DRUG SCREEN 2024-02-25 16:56:00 Anisa Villa [facility] URINE DRUG (IMMUNOASSAY) - COMPREHENSIVE DRUG SCREEN 2024-02-25 16:56:00 Anisa Villa [facility] URINALYSIS 2024-02-25 16:56:00 Lino [facility] CT HEAD WO CONTRAST 2024-02-25 15:45:[address] [facility] CT HEAD WO CONTRAST 2024-02-25 15:45:43 Lino [facility] XR CHEST 2 VW 2024-02-25 15:40:45 Kosfrances [facility] XR CHEST 2 VW 2024-02-25 15:40:45 Lino [facility] BASIC METABOLIC PANEL (NA, K , CL, CO2, GLUCOSE, BUN, CREATININE, CA) 2024-02-25 14:59:00 Lino [facility] HEPATIC FUNCTION PANEL (8007 6) (ALB,T.PRO,BILI T,BU/BC,ALT,AST,ALK PHOS) 2024-02-25 14:59:00 Lino [facility] CBC WITH DIFF 2024-02-25 14:59:00 Lino [facility] HB INDIRECT ANTIGLOBULIN TEST 2024-02-25 14:59:00 Lino [facility] PROTHROMBIN TIME / INR 2024-02-25 14:59:00 Lino [facility] AMMONIA, PLASMA 2024-02-25 14:59:00 Lino [facility] ABORH INVESTIGATION 2024-02-25 14:59:00 Lino [facility] ACTIVATED PARTIAL THRMPLAS KIMI 2024-02-13 3 14:59:00 Cuco Ramos [facility] FREE T4 2024-02-25 14:59:00 Winston Alcarazlas vegasjennifer [facility] AMMONIA, PLASMA 2024-02-25 14:59:00 Kosfrances [facility] FREE T4 2024-02-25 14:59:00 Winston Alcarazlas vegasjennifer [facility] HEPATIC FUNCTION PANEL (8007 6) (ALB,T.PRO,BILI T,BU/BC,ALT,AST,ALK PHOS) 2024-02-25 14:59:00 Lino [facility] BASIC METABOLIC PANEL (NA, K , CL, CO2, GLUCOSE, BUN, CREATININE, CA) 2024-02-25 14:59:00 Lino [facility] CBC WITH DIFF 2024-02-25 14:59:00 Koscuneva [facility] PROTHROMBIN TIME / INR 2024-02-25 14:59:00 Norbertorajeev, [facility] ACTIVATED PARTIAL THRMPLAS KIMI 2024-02-13 3 14:59:00 Cuco Ramos [facility] HB INDIRECT ANTIGLOBULIN TEST 2024-02-25 14:59:00 Norbertofrances [facility] ABORH INVESTIGATION 2024-02-25 14:59:00 [facility] EKG-12 LEAD 2024-02-25 14:46:47 Olvin Jose [facility] POCT GLUCOSE (AUTOMATED) 2024-02-15 21:31:00 Mona [facility] POCT GLUCOSE (AUTOMATED) 2024-02-15 21:31:00 Mona [facility] POCT GLUCOSE (AUTOMATED) 2024-02-15 16:32:00 Mona [facility] POCT GLUCOSE (AUTOMATED) 2024-02-15 16:32:00 Mona [facility] ENDOSCOPY PROCEDURE DOCUMENTATION 02-14 13:09:15 Doctor Unassigned, [place] [facility] POCT GLUCOSE (AUTOMATED) 2024-02-15 13:00:00 Ann Dunn [facility] POCT GLUCOSE (AUTOMATED) 2024-02-15 13:00:00 Mona Ann [facility] BASIC METABOLIC PANEL (NA, K , CL, CO2, GLUCOSE, BUN, CREATININE, CA) 2024-02-15 08:14:00 BilWinston smithlas vegasjennifer [facility] MAGNESIUM 2024-02-15 08:14:00 BilWinston smith [facility] CBC WITHOUT DIFF 2024-02-15 08:14:00 BilWinston smith [facility] MAGNESIUM 2024-02-15 08:14:00 BilWinston smith [facility] BASIC METABOLIC PANEL (NA, K , CL, CO2, GLUCOSE, BUN, CREATININE, CA) 2024-02-15 08:14:00 BilWinston smith [facility] CBC WITHOUT DIFF 2024-02-15 08:14:00 BilWinston smith [facility] POCT GLUCOSE (AUTOMATED) 2024-02-15 00:47:00 Mona [facility] POCT GLUCOSE (AUTOMATED) 2024-02-15 00:47:00 Mona [facility] POCT GLUCOSE (AUTOMATED) 2024-02-14 21:35:00 Mona [facility] POCT GLUCOSE (AUTOMATED) 2024-02-14 21:35:00 Mona [facility] POCT GLUCOSE (AUTOMATED) 2024-02-14 17:05:00 Mona [facility] POCT GLUCOSE (AUTOMATED) 2024-02-14 17:05:00 Mona [facility] POCT GLUCOSE (AUTOMATED) 2024-02-14 12:57:00 Mona [facility] POCT GLUCOSE (AUTOMATED) 2024-02-14 12:57:00 Mona [facility] CBC WITH DIFF 2024-02-14 09:57:00 Carey [facility] BASIC METABOLIC PANEL (NA, K , CL, CO2, GLUCOSE, BUN, CREATININE, CA) 2024-02-14 09:57:00 Carey [facility] MAGNESIUM 2024-02-14 09:57:00 Carey [facility] MAGNESIUM 2024-02-14 09:57:00 [facility] (NA, K , CL, CO2, GLUCOSE, BUN, CREATININE, CA) 2024-02-14 09:57:00 Carey [facility] CBC WITH DIFF 2024-02-14 09:57:00 Carey [facility] POCT GLUCOSE (AUTOMATED) 2024-02-14 01:05:00 Mona [facility] POCT GLUCOSE (AUTOMATED) 2024-02-14 01:05:00 Mona [facility] POCT GLUCOSE (AUTOMATED) 2024-02-13 21:08:00 Mona [facility] POCT GLUCOSE (AUTOMATED) 2024-02-13 21:08:00 Mona [facility] MRSA / MSSA SCREEN BY LAZARO WELCH 2024-02 20:16:00 Marisol Barrett [facility] MRSA / MSSA SCREEN BY PCR, [facility] 2024-02 20:16:00 Marisol Barrett [facility] CBC WITHOUT DIFF 2024-02-13 20:06:00 Marisol Barrett [facility] CBC WITHOUT DIFF 2024-02-13 20:06:00 Marisol Barrett [facility] IR EMBOLIZATION ARTERIAL OR VENOUS HEMORRHAGE OR LYMPHATIC EXTRAVASATION 2024-02-13 18:50:00 Jonnathan Florez [facility] IR PARACENTESIS/PERITONECENT ESIS WITH IMAGING 2024-02-13 18:50:00 Jonnathan Florez [facility] IR TIPS 2024-02-13 18:50:00 BilWinston smith [facility] IR TIPS 2024-02-13 18:50:00 BilalWinstonlas vegasjennifer [facility] IR PARACENTESIS/PERITONECENT ESIS WITH IMAGING 2024-02-13 18:50:00 Jonnathan Florez [facility] IR EMBOLIZATION ARTERIAL OR VENOUS HEMORRHAGE OR LYMPHATIC EXTRAVASATION 2024-02-13 18:50:00 Jonnathan Florez [facility] ABG+COOX+NA+K+GLU+CA2+ 2024-02-13 15:58:00 Ann Dunn [facility] ARTERIAL LINE 2024-02-13 15:10:00 Hugo Dick [facility] INTUBATION 2024-02-13 15:06:00 Hugo [facility] POCT GLUCOSE (AUTOMATED) 2024-02-13 12:48:00 Ann Dunn [facility] POCT GLUCOSE (AUTOMATED) 2024-02-13 12:48:00 Ann Dunn [facility] CBC WITH DIFF 2024-02-13 09:05:00 Cuco Ramos [facility] MAGNESIUM 2024-02-13 09:05:00 Cuco Ramos [facility] BASIC METABOLIC PANEL (NA, K , CL, CO2, GLUCOSE, BUN, CREATININE, CA) 2024-02-13 09:05:00 Cuco Ramos [facility] HB INDIRECT ANTIGLOBULIN TEST 2024-02-13 09:05:00 Lia [facility] ABORH INVESTIGATION 2024-02-13 09:05:00 RaOsiel jaramillon [facility] MAGNESIUM 2024-02-13 09:05:00 Richard Cuco [facility] BASIC METABOLIC PANEL (NA, K , CL, CO2, GLUCOSE, BUN, CREATININE, CA) 2024-02-13 09:05:00 Richard Cuco [facility] CBC WITH DIFF 2024-02-13 09:05:00 Richard Cuco [facility] HB INDIRECT ANTIGLOBULIN TEST 2024-02-13 09:05:00 Lia [facility] ABOR INVESTIGATION 2024-02-13 09:05:00 Ra [facility] POCT GLUCOSE (AUTOMATED) 2024-02-13 00:52:00 Mona [facility] POCT GLUCOSE (AUTOMATED) 2024-02-13 00:52:00 Mona [facility] POCT GLUCOSE (AUTOMATED) 2024-02-12 22:21:00 Mona [facility] POCT GLUCOSE (AUTOMATED) 2024-02-12 22:21:00 Mona [facility] POCT GLUCOSE (AUTOMATED) 2024-02-12 16:20:00 Mona [facility] POCT GLUCOSE (AUTOMATED) 2024-02-12 16:20:00 Mona [facility] POCT GLUCOSE (AUTOMATED) 2024-02-12 16:20:00 [facility] POCT GLUCOSE (AUTOMATED) 2024-02-12 14:27:00 [facility] POCT GLUCOSE (AUTOMATED) 2024-02-12 14:27:00 [facility] POCT GLUCOSE (AUTOMATED) 2024-02-12 14:27:00 [facility] CBC WITH DIFF 2024-02-12 09:22:00 Richard Cuco [facility] MAGNESIUM 2024-02-12 09:22:00 RichardCuco [facility] BASIC METABOLIC PANEL (NA, K , CL, CO2, GLUCOSE, BUN, CREATININE, CA) 2024-02-12 09:22:00 RichardCuco [facility] MAGNESIUM 2024-02-12 09:22:00 Richard Cuco [facility] BASIC METABOLIC PANEL (NA, K , CL, CO2, GLUCOSE, BUN, CREATININE, CA) 2024-02-12 09:22:00 RichardCuco [facility] CBC WITH DIFF 2024-02-12 09:22:00 Richard Cuco [facility] MAGNESIUM 2024-02-12 09:22:00 Richard Cuco [facility] BASIC METABOLIC PANEL (NA, K , CL, CO2, GLUCOSE, BUN, CREATININE, CA) 2024-02-12 09:22:00 Richard Cuco [facility] CBC WITH DIFF 2024-02-12 09:22:00 Richard [facility] POCT GLUCOSE (AUTOMATED) 2024-02-12 01:18:00 Mona [facility] POCT GLUCOSE (AUTOMATED) 2024-02-12 01:18:00 Mona [facility] POCT GLUCOSE (AUTOMATED) 2024-02-12 01:18:00 Mona [facility] POCT GLUCOSE (AUTOMATED) 2024-02-11 22:11:00 Mona [facility] POCT GLUCOSE (AUTOMATED) 2024-02-11 22:11:00 Mona [facility] POCT GLUCOSE (AUTOMATED) 2024-02-11 22:11:00 Mona [facility] COLONOSCOPY (ENDO) 2024-02-11 17:00:54 Mona [facility] COLONOSCOPY (ENDO) 2024-02-11 17:00:54 Mona [facility] COLONOSCOPY (ENDO) 2024-02-11 17:00:54 Mona [facility] EGD (ENDO) 2024-02-11 16:59:41 Mona [facility] EGD (ENDO) 2024-02-11 16:59:41 Mona [facility] EGD (ENDO) 2024-02-11 16:59:41 Ann Dunn [facility] ESOPHAGOGASTRODUODENOSCOPY 2024-02-11 15:15:00 Gautam Jonnathan Adhikari [facility] COLONOSCOPY 2024-02-11 15:15:00 Gautam Jonnathan Adhikari [facility] ESOPHAGOGASTRODUODENOSCOPY 2024-02-11 15:15:00 Gautam Jonnathan Adhikari [facility] COLONOSCOPY 2024-02-11 15:15:00 Gautam Jonnathan [facility] ESOPHAGOGASTRODUODENOSCOPY 2024-02-11 15:15:00 Gautam Jonnathan [facility] COLONOSCOPY 2024-02-11 15:15:00 Gautam Jonnathan [facility] BASIC METABOLIC PANEL (NA, K , CL, CO2, GLUCOSE, BUN, CREATININE, CA) 2024-02-11 09:07:00 Cuco Ramos [facility] MAGNESIUM 2024-02-11 09:07:00 Richard [facility] BASIC METABOLIC PANEL (NA, K , CL, CO2, GLUCOSE, BUN, CREATININE, CA) 2024-02-11 09:07:00 [facility] 2024-02-11 09:07:00 Cuco Ramos [facility] MAGNESIUM 2024-02-11 09:07:00 Cuco Ramos [facility] BASIC METABOLIC PANEL (NA, K , CL, CO2, GLUCOSE, BUN, CREATININE, CA) 2024-02-11 09:07:00 Cuco Ramos [facility] CBC WITH DIFF 2024-02-11 09:07:00 Richard [facility] CBC WITH DIFF 2024-02-11 09:07:00 Cuco Ramos [facility] MAGNESIUM 2024-02-11 09:07:00 Cuco Ramos [facility] POCT GLUCOSE (AUTOMATED) 2024-02-11 01:11:00 Asher Aguilera [facility] POCT GLUCOSE (AUTOMATED) 2024-02-11 01:11:00 Asher Aguilera [facility] POCT GLUCOSE (AUTOMATED) 2024-02-11 01:11:00 Asher Aguilera [facility] POCT GLUCOSE (AUTOMATED) 2024-02-10 22:47:00 Asher Aguilera [facility] POCT GLUCOSE (AUTOMATED) 2024-02-10 22:47:00 Asher Aguilera [facility] POCT GLUCOSE (AUTOMATED) 2024-02-10 22:47:00 Asher Aguilera [facility] POCT GLUCOSE (AUTOMATED) 2024-02-10 16:48:00 Asher Aguilera [facility] POCT GLUCOSE (AUTOMATED) 2024-02-10 16:48:00 Asher Aguilera [facility] POCT GLUCOSE (AUTOMATED) 2024-02-10 16:48:00 Asher Aguilera [facility] POCT GLUCOSE (AUTOMATED) 2024-02-10 12:30:00 Asher Aguilera [facility] POCT GLUCOSE (AUTOMATED) 2024-02-10 12:30:00 Asher Aguilera [facility] POCT GLUCOSE (AUTOMATED) 2024-02-10 12:30:00 Asher Aguilera [facility] CBC WITHOUT DIFF 2024-02-10 11:11:00 Pj [facility] CBC WITHOUT DIFF 2024-02-10 11:11:00 Pj [facility] CBC WITHOUT DIFF 2024-02-10 11:11:00 Pj [facility] CBC WITHOUT DIFF 2024-02-10 04:31:00 Ananya [facility] CBC WITHOUT DIFF 2024-02-10 04:31:00 Ananya [facility] CBC WITHOUT DIFF 2024-02-10 04:31:00 Ananya [facility] POCT GLUCOSE (AUTOMATED) 2024-02-10 01:49:00 Asher Aguilera [facility] POCT GLUCOSE (AUTOMATED) 2024-02-10 01:49:00 Asher Aguilera [facility] POCT GLUCOSE (AUTOMATED) 2024-02-10 01:49:00 Asher Aguilera [facility] URINALYSIS 2024-02-09 23:45:00 Axel [facility] URINALYSIS 2024-02-09 23:45:00 Axel [facility] URINALYSIS 2024-02-09 23:45:00 Axel [facility] POCT GLUCOSE (AUTOMATED) 2024-02-09 21:06:00 Asher Aguilera [facility] POCT GLUCOSE (AUTOMATED) 2024-02-09 21:06:00 Asher Aguilera [facility] POCT GLUCOSE (AUTOMATED) 2024-02-09 21:06:00 Asher Aguilera [facility] BLOOD CULTURE SCREEN 2024-02-09 20:09:00 Axel [facility] VERIFYNOW ASPIRIN TEST 2024-02-09 20:09:00 Axel [facility] BLOOD CULTURE SCREEN 2024-02-09 20:09:00 Axel [facility] VERIFYNOW ASPIRIN TEST 2024-02-09 20:09:00 Axel [facility] VERIFYNOW PRUTEST (P2Y12) 2024-02-09 20:09:00 Axel [facility] BLOOD CULTURE SCREEN 2024-02-09 20:09:00 Axel [facility] HAV ANTIBODY (IGG AND IGM) 2024-02-09 19:59:00 Axel [facility] HEPATITIS C VIRUS (HCV) BY QUANTITATIVE NAAT 2024-02-09 19:59:00 Axel [facility] HAV ANTIBODY (IGG AND IGM) 2024-02-09 19:59:00 Amrhina [facility] HEPATITIS C VIRUS (HCV) BY QUANTITATIVE NAAT 2024-02-09 19:59:00 Axel [facility] HEPATITIS C VIRUS (HCV) BY QUANTITATIVE NAAT 2024-02-09 19:59:00 Axel [facility] HAV ANTIBODY (IGG AND IGM) 2024-02-09 19:59:00 Amrhina [facility] BLOOD CULTURE SCREEN 2024-02-09 19:58:00 Axel [facility] BLOOD CULTURE SCREEN 2024-02-09 19:58:00 Axel [facility] BLOOD CULTURE SCREEN 2024-02-09 19:58:00 Axel [facility] XR CHEST 1 VW 2024-02-09 18:55:00 Amrhina [facility] XR CHEST 1 VW 2024-02-09 18:55:00 Axel [facility] XR CHEST 1 VW 2024-02-09 18:55:00 Axel [facility] CBC WITHOUT DIFF 2024-02-09 17:43:00 Ananya [facility] CBC WITHOUT DIFF 2024-02-09 17:43:00 Ananya [facility] CBC WITHOUT DIFF 2024-02-09 17:43:00 Ananya [facility] POCT GLUCOSE (AUTOMATED) 2024-02-09 16:34:00 [facility] POCT GLUCOSE (AUTOMATED) 2024-02-09 16:34:00 [facility] POCT GLUCOSE (AUTOMATED) 2024-02-09 16:34:00 Artem Ko [facility] PROTHROMBIN TIME / INR 2024-02-09 11:43:00 Axel [facility] ACTIVATED PARTIAL THRMPLAS KIMI 2024-01-14 8 11:43:00 Axel [facility] FIBRINOGEN 2024-02-09 11:43:00 Axel [facility] MRSA / MSSA SCREEN BY LAZARO WELCH 2024-01 11:43:00 Axel [facility] PROTHROMBIN TIME / INR 2024-02-09 11:43:00 Amrhina [facility] ACTIVATED PARTIAL THRMPLAS KIMI 2024-01-14 8 11:43:00 Axel [facility] FIBRINOGEN 2024-02-09 11:43:00 Amrhina [facility] MRSA / MSSA SCREEN BY PCR, [facility] 2024-01 11:43:00 Amrhina [facility] MRSA / MSSA SCREEN BY PCR, [facility] 2024-01 11:43:00 Axel [facility] ACTIVATED PARTIAL THRMPLAS KIMI 2024-01-14 8 11:43:00 Axel [facility] PROTHROMBIN TIME / INR 2024-02-09 11:43:00 Amrhina [facility] FIBRINOGEN 2024-02-09 11:43:00 Axel [facility] HB ECG ROUTINE & RHYTHM STRIP 2024-02-09 11:22:19 [facility] HB ECG ROUTINE & RHYTHM STRIP 2024-02-09 11:22:19 Jewel [facility] HB ECG ROUTINE & RHYTHM STRIP 2024-02-09 11:22:19 Jewel [facility] CBC WITHOUT DIFF 2024-02-09 10:32:00 Jewel [facility] CBC WITHOUT DIFF 2024-02-09 10:32:00 Jewel [facility] CBC WITHOUT DIFF 2024-02-09 10:32:00 Wesley [facility] CBC WITHOUT DIFF 2024-02-09 09:14:00 Jewel [facility] CBC WITHOUT DIFF 2024-02-09 09:14:00 Jewel [facility] CBC WITHOUT DIFF 2024-02-09 09:14:00 Jewel [facility] LIPASE 2024-02-09 08:39:00 Jewel [facility] MAGNESIUM 2024-02-09 08:39:00 Axel [facility] FERRITIN SERUM 2024-02-09 08:39:00 Axel [facility] HEPATIC FUNCTION PANEL (8007 6) (ALB,T.PRO,BILI T,BU/BC,ALT,AST,ALK PHOS) 2024-02-09 08:39:00 Amrhina [facility] IRON PANEL 2024-02-09 08:39:00 Amrhina [facility] HEPATITIS B SURFACE ANTIBODY 2024-02-09 08:39:00 Amrhina [facility] HEPATITIS B SURFACE ANTIGEN 2024-02-09 08:39:00 Axel [facility] LIPASE 2024-02-09 08:39:00 Rj Holloway [facility] MAGNESIUM 2024-02-09 08:39:00 Amrhina [facility] FERRITIN SERUM 2024-02-09 08:39:00 Axel [facility] HEPATIC FUNCTION PANEL (8007 6) (ALB,T.PRO,BILI T,BU/BC,ALT,AST,ALK PHOS) 2024-02-09 08:39:00 Amrhina [facility] IRON PANEL 2024-02-09 08:39:00 Amrhina [facility] HEPATITIS B SURFACE ANTIBODY 2024-02-09 08:39:00 Amrhina [facility] HEPATITIS B SURFACE ANTIGEN 2024-02-09 08:39:00 Axel [facility] LIPASE 2024-02-09 08:39:00 Rj Holloway [facility] HEPATIC FUNCTION PANEL (8007 6) (ALB,T.PRO,BILI T,BU/BC,ALT,AST,ALK PHOS) 2024-02-09 08:39:00 Amrhina [facility] MAGNESIUM 2024-02-09 08:39:00 Amrhina [facility] IRON PANEL 2024-02-09 08:39:00 Amrhina [facility] FERRITIN SERUM 2024-02-09 08:39:00 Amrhina [facility] HEPATITIS B SURFACE ANTIGEN 2024-02-09 08:39:00 Amrhina [facility] HEPATITIS B SURFACE ANTIBODY 2024-02-09 08:39:00 Axel [facility] CT ANGIOGRAM ABDOMEN/PELVIS 2024-02-09 08:25:12 Rj Holloway [facility] CT ANGIOGRAM ABDOMEN/PELVIS 2024-02-09 08:25:12 Rj Holloway [facility] CT ANGIOGRAM ABDOMEN/PELVIS 2024-02-09 08:25:12 Rj Holloway [facility] PREPARE PACKED RBC 2024-02-09 07:52:54 Doctor Unassigned, [place] [facility] PREPARE PACKED RBC 2024-02-09 07:52:54 Doctor Unassigned, [place] [facility] PREPARE PACKED RBC 2024-02-09 07:52:54 Doctor Unassigned, [place] [facility] POCT GLUCOSE (AUTOMATED) 2024-02-09 06:46:00 Rj Holloway [facility] POCT GLUCOSE (AUTOMATED) 2024-02-09 06:46:00 [facility] 2024-02-09 06:46:00 Rj Holloway [facility] HB ECG ROUTINE & RHYTHM STRIP 2024-02-09 06:37:40 Freddy Espinoza [facility] COMP. METABOLIC PANEL (48564) 2024-02-09 06:37:00 Rj Holloway [facility] ETHANOL 2024-02-09 06:37:00 Luis Hollowayian Alden [facility] CBC WITH DIFF 2024-02-09 06:37:00 [facility] / INR 2024-02-09 06:37:00 Rj Holloway [facility] ACTIVATED PARTIAL THRMPLAS KIMI 2024-01-14 8 06:37:00 Rj Holloway [facility] HB ABO GROUPING 2024-02-09 06:37:00 Rj Holloway [facility] COMP. METABOLIC PANEL (02591) 2024-02-09 06:37:00 Rj Holloway [facility] ETHANOL 2024-02-09 06:37:00 Rj Holloway [facility] CBC WITH DIFF 2024-02-09 06:37:00 Rj Holloway [facility] PROTHROMBIN TIME / INR 2024-02-09 06:37:00 Holloway, Rj W [facility] ACTIVATED PARTIAL THRMPLAS KIMI 2024-01-14 8 06:37:00 Rj Holloway [facility] HB ABO GROUPING 2024-02-09 06:37:00 Rj Holloway [facility] CBC WITH DIFF 2024-02-09 06:37:00 [facility] / INR 2024-02-09 06:37:00 Rj Holloway [facility] ACTIVATED PARTIAL THRMPLAS KIMI 2024-01-14 8 06:37:00 Rj Holloway [facility] HB ABO GROUPING 2024-02-09 06:37:00 Jewel [facility] COMP. METABOLIC PANEL ([id number]) 2024-02-09 06:37:00 Rj Holloway [facility] ETHANOL 2024-02-09 06:37:00 [facility] WITHOUT DIFF 2024-02-03 12:53:00 Marisa [facility] CBC WITHOUT DIFF 2024-02-03 12:53:00 Marisa Watson [facility] VERIFYNOW PRUTEST (P2Y12) 2024-02-03 09:45:00 Marisa Watson [facility] VERIFYNOW PRUTEST (P2Y12) 2024-02-03 09:45:00 Marisa Watson [facility] VERIFYNOW PRUTEST (P2Y12) 2024-02-02 20:20:00 Cici Garcia [facility] VERIFYNOW PRUTEST (P2Y12) 2024-02-02 20:20:00 Cici Garcia [facility] VERIFYNOW PRUTEST (P2Y12) 2024-02-02 18:10:00 Katarina [facility] VERIFYNOW PRUTEST (P2Y12) 2024-02-02 18:10:00 Katarina [facility] VERIFYNOW ASPIRIN TEST 2024-02-02 12:48:00 Katarina [facility] VERIFYNOW ASPIRIN TEST 2024-02-02 12:48:00 Katarina [facility] VERIFYNOW PRUTEST (P2Y12) 2024-02-02 12:47:00 Katarina [facility] VERIFYNOW PRUTEST (P2Y12) 2024-02-02 12:47:00 Katarina [facility] BASIC METABOLIC PANEL (NA, K , CL, CO2, GLUCOSE, BUN, CREATININE, CA) 2024-02-02 10:38:00 Marisa [facility] CBC WITHOUT DIFF 2024-02-02 10:38:00 Marisa Watson [facility] MAGNESIUM 2024-02-02 10:38:00 Marisa Watson [facility] MAGNESIUM 2024-02-02 10:38:00 Marisa Watson [facility] BASIC METABOLIC PANEL (NA, K , CL, CO2, GLUCOSE, BUN, CREATININE, CA) 2024-02-02 10:38:00 Marisa Watson [facility] CBC WITHOUT DIFF 2024-02-02 10:38:00 Marisa Watson [facility] OCCULT (GUAIAC) BLOOD 2024-02-02 05:44:00 Katarina [facility] OCCULT (GUAIAC) BLOOD 2024-02-02 05:44:00 Katarina [facility] CBC WITH DIFF 2024-02-01 19:17:00 Marisa Watson [facility] CBC WITH DIFF 2024-02-01 19:17:00 Marisa Watson [facility] IR ANGIOGRAM CEREBRAL 2024-02-01 16:05:00 [facility] IR ANGIOGRAM CEREBRAL 2024-02-01 16:05:00 [facility] MR STROKE BRAIN WO CONTRAST 2024-01-31 22:30:38 Gaye [facility] MR STROKE BRAIN WO CONTRAST 2024-01-31 22:30:38 Gaye [facility] CT STROKE ANGIOGRAM NECK 2024-01-31 21:40:26 [facility] 2024-01-31 21:40:26 [facility] HEAD 2024-01-31 21:38:49 Lauro, [facility] CT STROKE ANGIOGRAM HEAD 2024-01-31 21:38:49 Lauro, [facility] URINALYSIS 2024-01-31 21:16:00 Lauro, [facility] URINALYSIS 2024-01-31 21:16:00 Lauro, [facility] CT STROKE HEAD WO CONTRAST 2024-01-31 21:14:17 Lauro, [facility] CT STROKE HEAD WO CONTRAST 2024-01-31 21:14:17 Lauro [facility] POCT GLUCOSE(AGE >30DAYS) 2024-01-31 21:01:00 Lauro, [facility] POCT GLUCOSE(AGE >30DAYS) 2024-01-31 21:01:00 Lauro [facility] PROTHROMBIN TIME / INR 2024-01-31 20:46:00 Lauro, [facility] ACTIVATED PARTIAL THRMPLAS KIMI 2024-01-13 9 20:46:00 Lauro [facility] CBC WITHOUT DIFF 2024-01-31 20:46:00 Lauro, [facility] TROPONIN I 2024-01-31 20:46:00 Lauro, [facility] BASIC METABOLIC PANEL (NA, K , CL, CO2, GLUCOSE, BUN, CREATININE, CA) 2024-01-31 20:46:00 Lauro [facility] TROPONIN I 2024-01-31 20:46:00 Lauro, [facility] BASIC METABOLIC PANEL (NA, K , CL, CO2, GLUCOSE, BUN, CREATININE, CA) 2024-01-31 20:46:00 Lauro, [facility] CBC WITHOUT DIFF 2024-01-31 20:46:00 Lauro, ShahabBennett [facility] PROTHROMBIN TIME / INR 2024-01-31 20:46:00 Lauro, Betoang [facility] ACTIVATED PARTIAL THRMPLAS KIMI 2024-01-13 9 20:46:00 Olivia EspinozaBennett [facility] POCT GLUCOSE (AUTOMATED) 2024-01-31 20:43:00 Lauro, ShahabBennett [facility] POCT GLUCOSE (AUTOMATED) 2024-01-31 20:43:00 [facility] ([facility]OMATED) 2023-12-19 23:25:00 Josh Hinds [facility] POCT GLUCOSE (AUTOMATED) 2023-12-19 23:25:00 Josh Hinds [facility] POCT GLUCOSE (AUTOMATED) 2023-12-19 18:21:00 Josh Hinds [facility] POCT GLUCOSE (AUTOMATED) 2023-12-19 18:21:00 Josh Hinds [facility] ACTIVATED PARTIAL THRMPLAS KIMI 6 16:00:00 Marisa Watson [facility] ACTIVATED PARTIAL THRMPLAS KIMI 6 16:00:00 Marisa Watson [facility] POCT GLUCOSE (AUTOMATED) 2023-12-19 14:50:00 Josh Hinds [facility] POCT GLUCOSE (AUTOMATED) 2023-12-19 14:50:00 Josh Hinds [facility] MAGNESIUM 2023-12-19 09:51:00 Marisa Watson [facility] HAPTOGLOBIN, SERUM 2023-12-19 09:51:00 Marisa Watson [facility] BASIC METABOLIC PANEL (NA, K , CL, CO2, GLUCOSE, BUN, CREATININE, CA) 2023-12-19 09:51:00 Marisa Watson [facility] CBC WITH DIFF 2023-12-19 09:51:00 Cunningham Frade, [facility] PROTHROMBIN TIME / INR 2023-12-19 09:51:00 Cunningham Frade, [facility] HEPATITIS B SURFACE ANTIBODY 2023-12-19 09:51:00 Cunningham Frade, [facility] HBC ANTIBODY (IGM & IGG) 2023-12-19 09:51:00 Cunningham Frade, [facility] HAV ANTIBODY (IGG AND IGM) 2023-12-19 09:51:00 Cunningham Frade, [facility] HAPTOGLOBIN, SERUM 2023-12-19 09:51:00 Cunningham Frarodolfo, [facility] BASIC METABOLIC PANEL (NA, K , CL, CO2, GLUCOSE, BUN, CREATININE, CA) 2023-12-19 09:51:00 Cunningham Frade, [facility] MAGNESIUM 2023-12-19 09:51:00 Cunningham Frade, [facility] PROTHROMBIN TIME / INR 2023-12-19 09:51:00 Cunningham Frade, [facility] CBC WITH DIFF 2023-12-19 09:51:00 Cunningham Frade, [facility] HEPATITIS B SURFACE ANTIBODY 2023-12-19 09:51:00 Cunningham Frade, [facility] HBC ANTIBODY (IGM & IGG) 2023-12-19 09:51:00 Cunningham Frade, [facility] HAV ANTIBODY (IGG AND IGM) 2023-12-19 09:51:00 Cunningham Shirley, [facility] US ABDOMEN LIMITED 2023-12-19 06:17:00 [facility] US ABDOMEN LIMITED 2023-12-19 06:17:00 [facility] ACTIVATED PARTIAL THRMPLAS KIMI 6 03:43:00 Cunningham Shirley, [facility] ACTIVATED PARTIAL THRMPLAS KIMI 6 03:43:00 Marisa Watson [facility] POCT GLUCOSE (AUTOMATED) 2023-12-19 01:34:00 Josh Hinds [facility] POCT GLUCOSE (AUTOMATED) 2023-12-19 01:34:00 Josh Hinds [facility] POCT GLUCOSE (AUTOMATED) 2023-12-18 22:34:00 Josh Hinds [facility] POCT GLUCOSE (AUTOMATED) 2023-12-18 22:34:00 Josh Hinds [facility] LACTATE DEHYDROGENASE 2023-12-18 22:10:00 Kim Valenzuela [facility] THYROID STIMULATING HORMONE 2023-12-18 22:10:00 Marisa Watson [facility] HEPATITIS B SURFACE ANTIGEN 2023-12-18 22:10:00 Marisa Watson [facility] HIV 1/2 AG-AB WITH REFLEX 2023-12-18 22:10:00 Kim Valenzuela [facility] THYROID STIMULATING HORMONE 2023-12-18 22:10:00 Marisa Watson [facility] HEPATITIS B SURFACE ANTIGEN 2023-12-18 22:10:00 Marisa Watson [facility] LACTATE DEHYDROGENASE 2023-12-18 22:10:00 Kim Valenzuela [facility] HIV 1/2 AG-AB WITH REFLEX 2023-12-18 22:10:00 Kim Valenzuela [facility] CBC WITH DIFF 2023-12-18 20:13:00 Kim Valenzuela [facility] RETICULOCYTES AUTOMATED 2023-12-18 20:13:00 Marisa Watson [facility] DIFF CONSULT BY PATHOLOGIST 2023-12-18 20:13:00 Kim Valenzuela [facility] CBC WITH DIFF 2023-12-18 20:13:00 Kim Valenzuelalas vegasjennifer [facility] RETICULOCYTES AUTOMATED 2023-12-18 20:13:00 Marisa Watson [facility] DIFF CONSULT INTERPRETATION 2023-12-18 20:13:00 Kim Valenzuela [facility] POCT GLUCOSE (AUTOMATED) 2023-12-18 16:53:00 Josh Hinds [facility] POCT GLUCOSE (AUTOMATED) 2023-12-18 16:53:00 Josh Hinds [facility] ACTIVATED PARTIAL THRMPLAS KIMI 5 15:32:00 Marisa Watson [facility] ACTIVATED PARTIAL THRMPLAS KIMI 5 15:32:00 Marisa Watson [facility] POCT GLUCOSE (AUTOMATED) 2023-12-18 13:54:00 Josh Hinds [facility] POCT GLUCOSE (AUTOMATED) 2023-12-18 13:54:00 Josh Hinds [facility] CT HEAD WO CONTRAST 2023-12-18 09:13:29 Marisa Watson [facility] CT HEAD WO CONTRAST 2023-12-18 09:13:29 Marisa Watson [facility] MAGNESIUM 2023-12-18 08:30:00 Marisa Watson [facility] BASIC METABOLIC PANEL (NA, K , CL, CO2, GLUCOSE, BUN, CREATININE, CA) 2023-12-18 08:30:00 Marisa aWtson [facility] CBC WITHOUT DIFF 2023-12-18 08:30:00 Marisa Watson [facility] PROTHROMBIN TIME / INR 2023-12-18 08:30:00 Marisa Watson [facility] ACTIVATED PARTIAL THRMPLAS KIMI 5 08:30:00 Marisa Watson [facility] BASIC METABOLIC PANEL (NA, K , CL, CO2, GLUCOSE, BUN, CREATININE, CA) 2023-12-18 08:30:00 Marisa Watson [facility] CBC WITHOUT DIFF 2023-12-18 08:30:00 Marisa Watson [facility] MAGNESIUM 2023-12-18 08:30:00 Cunninghamjudd Molinade [facility] PROTHROMBIN TIME / INR 2023-12-18 08:30:00 Marisa Watson [facility] ACTIVATED PARTIAL THRMPLAS KIMI 5 08:30:00 Marisa Watson [facility] ACTIVATED PARTIAL THRMPLAS KIMI 5 04:16:00 Marisa Watson [facility] ACTIVATED PARTIAL THRMPLAS KIMI 5 04:16:00 Marisa [facility] POCT GLUCOSE (AUTOMATED) 2023-12-18 03:18:00 Josh Hinds [facility] POCT GLUCOSE (AUTOMATED) 2023-12-18 03:18:00 Josh Hinds [facility] POCT GLUCOSE (AUTOMATED) 2023-12-17 21:03:00 Josh Hinds [facility] POCT GLUCOSE (AUTOMATED) 2023-12-17 21:03:00 Josh Hinds [facility] ACTIVATED PARTIAL THRMPLAS KIMI 4 18:13:00 Marisa [facility] VERIFYNOW ASPIRIN TEST 2023-12-17 18:13:00 Marisa [facility] VERIFYNOW ASPIRIN TEST 2023-12-17 18:13:00 Marisa [facility] ACTIVATED PARTIAL THRMPLAS KIMI 4 18:13:00 Marisa [facility] POCT GLUCOSE (AUTOMATED) 2023-12-17 17:00:00 Josh Hinds [facility] POCT GLUCOSE (AUTOMATED) 2023-12-17 17:00:00 Josh Hinds [facility] POCT GLUCOSE (AUTOMATED) 2023-12-17 12:51:00 Josh Hinds [facility] POCT GLUCOSE (AUTOMATED) 2023-12-17 12:51:00 Josh Hinds [facility] MAGNESIUM 2023-12-17 09:09:00 Sonam Coats [facility] FERRITIN SERUM 2023-12-17 09:09:00 Kim Valenzuela [facility] VITAMIN B12, LEVEL 2023-12-17 09:09:00 Kim Valenzuela [facility] FOLATE 2023-12-17 09:09:00 [facility] HEPATIC FUNCTION PANEL (8007 6) (ALB,T.PRO,BILI T,BU/BC,ALT,AST,ALK PHOS) 2023-12-17 09:09:00 Kwasi Ambrocio [facility] BASIC METABOLIC PANEL (NA, K , CL, CO2, GLUCOSE, BUN, CREATININE, CA) 2023-12-17 09:09:00 Jorge L [facility] LIPID PANEL (94311)(TOTAL CHOLESTEROL, TRIGLYCERIDES, HDL) 2023-12-17 09:09:00 [facility] CBC WITH DIFF 2023-12-17 09:09:00 Jorge L [facility] LIPID PANEL (21898)(TOTAL CHOLESTEROL, TRIGLYCERIDES, HDL) 2023-12-17 09:09:00 Gaye [facility] BASIC METABOLIC PANEL (NA, K , CL, CO2, GLUCOSE, BUN, CREATININE, CA) 2023-12-17 09:09:00 [facility] 2023-12-17 09:09:00 Jorge L [facility] MAGNESIUM 2023-12-17 09:09:00 Jorge L [facility] HEPATIC FUNCTION PANEL (8007 6) (ALB,T.PRO,BILI T,BU/BC,ALT,AST,ALK PHOS) 2023-12-17 09:09:00 Kwasi Ambrocio [facility] VITAMIN B12, LEVEL 2023-12-17 09:09:00 Kim Valenzuela [facility] FOLATE 2023-12-17 09:09:00 Kim [facility] FERRITIN SERUM 2023-12-17 09:09:00 Kim Valenzuela [facility] HB ECG ROUTINE & RHYTHM STRIP 2023-12-17 02:58:00 Ellluvia [facility] HB ECG ROUTINE & RHYTHM STRIP 2023-12-17 02:58:00 Gaye [facility] XR CHEST 1 VW 2023-12-17 02:46:00 Jorge L Sonam [facility] XR CHEST 1 VW 2023-12-17 02:46:00 Jorge LSonam [facility] POCT GLUCOSE (AUTOMATED) 2023-12-17 01:58:00 Josh Hinds [facility] POCT GLUCOSE (AUTOMATED) 2023-12-17 01:58:00 Josh Hinds [facility] MRSA / MSSA SCREEN BY PCR, LAZARO 2023-12 00:51:00 Elnaeclint [facility] MRSA / MSSA SCREEN BY PCR, LAZARO 2023-12 00:51:00 Ellluvia [facility] MR STROKE BRAIN WO CONTRAST 2023-12-16 23:47:10 Elnaeem [facility] MR STROKE BRAIN WO CONTRAST 2023-12-16 23:47:10 Gaye [facility] TRANSTHORACIC ECHO (TTE) COM PLETE W/ CONTRAST 2023-12-16 20:43:00 Ellluvia [facility] TRANSTHORACIC ECHO (TTE) COM PLETE W/ CONTRAST 2023-12-16 20:43:00 Ellluvia [facility] HB ECG ROUTINE & RHYTHM STRIP 2023-12-16 19:41:03 Tomi [facility] HB ECG ROUTINE & RHYTHM STRIP 2023-12-16 19:41:[address] [facility] [address] STROKE PERFUSION W CONTRAST 3 19:02:04 Ellluvia [facility] CT STROKE PERFUSION W CONTRAST 3 19:02:04 Ellluvia [facility] CT STROKE ANGIOGRAM HEAD 2023-12-16 18:53:00 Tomi [facility] CT STROKE ANGIOGRAM NECK 2023-12-16 18:53:00 Tomi [facility] CT STROKE ANGIOGRAM HEAD 2023-12-16 18:53:00 Tomi [facility] CT STROKE ANGIOGRAM NECK 2023-12-16 18:53:00 Tomi [facility] CT STROKE HEAD WO CONTRAST 2023-12-16 18:48:[address] [facility] CT STROKE HEAD WO CONTRAST 2023-12-16 18:48:42 Tomi [facility] TROPONIN I 2023-12-16 18:24:00 Tomi [facility] BASIC METABOLIC PANEL (NA, K , CL, CO2, GLUCOSE, BUN, CREATININE, CA) 2023-12-16 18:24:00 Tomi [facility] IRON PANEL 2023-12-16 18:24:00 [facility] CBC WITHOUT DIFF 2023-12-16 18:24:00 Tomi [facility] GLYCOSYLATED HEMOGLOBIN (A1C) 2023-12-16 18:24:00 Cristopher Huizar [facility] PROTHROMBIN TIME / INR 2023-12-16 18:24:00 Tomi [facility] ACTIVATED PARTIAL THRMPLAS KIMI 2023-12-0 3 18:24:00 Tomi [facility] PROTHROMBIN TIME / INR 2023-12-16 18:24:00 Tomi [facility] ACTIVATED PARTIAL THRMPLAS KIMI 2023-12-0 3 18:24:00 Tomi [facility] CBC WITHOUT DIFF 2023-12-16 18:24:00 Tomi [facility] TROPONIN I 2023-12-16 18:24:00 Tomi [facility] BASIC METABOLIC PANEL (NA, K , CL, CO2, GLUCOSE, BUN, CREATININE, CA) 2023-12-16 18:24:00 Tomi, Milan [facility] GLYCOSYLATED HEMOGLOBIN (A1C) 2023-12-16 18:24:00 Cristopher Huizar [facility] IRON PANEL 2023-12-16 18:24:00 Kim Valenzuela [facility] POCT GLUCOSE(AGE >30DAYS) 2023-12-16 18:15:00 Milan Krishna [facility] POCT GLUCOSE(AGE >30DAYS) 2023-12-16 18:15:00 Milan Krishna [facility] POCT GLUCOSE (AUTOMATED) 2023-12-16 18:14:00 Doctor Unassigned, [place] [facility] POCT GLUCOSE (AUTOMATED) 2023-12-16 18:14:00 Doctor Unassigned, [place] [facility] XR FOREARM 2 VW RIGHT 2022-01-13 14:50:02 Cuba Salgado [facility] CT THORAX W CONTRAST 2021-12-04 22:57:42 Alexus Zapata [facility] Encounters Start Date/Time End Date/Time Encounter Type Admission Type Attending [facility] Facility Care Department Encounter ID Source 2022-07-29 10:33:32 Outpatient CHW CHW [id number] [facility] 2024-07-05 09:00:00 2024-07-05 09:00:00 Outpatient SHARAD ZAMUDIO [id number] [facility] 2024-06-27 14:45:00 2024-06-27 14:45:00 Outpatient SHARAD ZAMUDIO [id number] [facility] 2024-06-10 10:00:00 2024-06-10 10:00:00 [id number] 13:00:00 2024-06-09 13:00:00 Outpatient LAB90 KELI SHEN [id number] [facility] 2024-06-09 12:00:00 2024-06-09 12:00:00 Outpatient KELSEA ARROYO [id number] [facility] 2024-06-09 00:00:00 2024-06-09 00:00:00 Outpatient PREZASHARAD Jimenez KELI [id number] [facility] 2024-06-08 00:00:00 2024-06-08 00:00:00 Outpatient PREZASHARAD Jimenez [id number] [facility] 2024-06-08 00:00:00 2024-06-08 00:00:00 Outpatient [facility]ELI KELI [id number] [facility]24-[facility]-08 00:00:00 2024-06-08 00:00:00 Outpatient PREZASHARAD Jimenez KELI [id number] [facility] 2024-06-07 09:25:00 2024-06-07 09:25:00 Outpatient LAB90 KELI KELI [id number] [facility] 2024-06-07 07:11:00 2024-06-07 07:11:00 Out[facility] [id number] 2024-06-06 10:00:00 2024-06-06 10:00:00 Outpatient PRESHARAD VILLANUEVA KELI [id number] [facility] 2024-06-03 11:46:00 2024-06-03 11:46:00 Outpatient Bo Steele W CHW [id number] [facility] 2024-06-01 15:00:00 2024-06-01 15:00:00 Outpatient CHAD CHARLES [id number] [facility] 2024-06-01 15:00:00 2024-06-01 15:00:00 Outpatient CHAD CHARLES [id number] [facility] 2024-05-23 15:40:00 2024-05-23 15:40:00 Outpatient LOLA HANSEN [id number] [facility] 2024-05-12 14:48:00 2024-05-12 14:48:00 Outpatient Vitaliy Gunter Alden W [id number] [facility] 2024-05-11 00:00:00 2024-05-11 00:00:00 Outpatient PREZABarbaraSAHRAD [id number] [facility]ney 2024-04-03 11:54:00 2024-04-30 18:18:00 Inpatient Vlad Wheeler [facility]01 [id number] [facility] 2024-03-04 00:00:00 2024-04-09 18:25:16 Patient Secure Msg Doctor Unassigned, [place] [facility] 1..840.114 350.1.13.10 4.2.7.2.686 [id number] [facility] 2024-04-07 14:48:00 2024-04-07 14:48:00 Outpatient Bo Steele W W [id number] [facility] 2024-04-05 14:48:00 2024-04-05 14:48:00 Outpatient Bo Steele W W [id number] [facility] 2024-04-02 07:54:00 2024-04-02 07:54:00 Outpatient Shaheen Garcia W CHW [id number] [facility] 2024-03-30 16:32:00 2024-03-30 16:32:00 Outpatient Bo Steele W CHW [id number] [facility] 2024-03-25 14:08:00 2024-03-25 14:08:00 Outpatient Jane Dai W CHW [id number] [facility] 2024-03-21 15:14:00 2024-03-22 10:55:00 Inpatient GENARO BOYD CARLOS [facility] [id number] [facility] 2024-03-21 15:14:00 2024-03-22 10:55:00 Hospital Encounter Mikey Schwartz Marcus Dostal, Carlos [facility] 1..840.114 350.1.13.10 4.2.7.2.686 [id number] [facility] 2024-03-14 00:00:00 2024-03-15 08:01:58 Telephone Bo Steele [facility] 1.2840.114 350.1.13.10 4.2.7.2.686 [id number] [facility] 2024-03-11 10:28:00 2024-03-11 10:28:00 Outpatient Bo Steele W CHW [id number] [facility] 2024-03-07 00:00:00 2024-03-08 09:26:44 Transition of Care Kayla Helm 1.2840.114 350.1.13.10 4.2.7.2.686 [id number] [facility] 2024-03-08 08:48:00 2024-03-08 08:48:00 Outpatient Bo Steele W W [id number] [facility] 2024-02-25 09:49:00 2024-03-04 11:15:00 Inpatient Fuentes JOSE OLVIN HERNANDEZ [facility] [id number] [facility] 2024-02-25 09:49:00 2024-03-04 11:15:00 Hospital Encounter Lino Joseph Olvin Jose [facility] 1.840.114 350.1.13.10 4.2.7.2.686 [id number] [facility] 2024-03-02 20:02:02 2024-03-02 20:02:02 Anesthesia Event Aidan Denis [facility] 1.20.114 350.1.13.10 4.2.7.2.686 [id number] [facility] 2024-01-25 00:00:00 2024-02-27 18:20:33 Patient Secure Msg Doctor Unassigned, [place] 1.840.1 [id number] 3.104.2.7 .3.758723 .8 [id number] [facility] 2024-02-25 16:26:00 2024-02-25 16:26:00 Outpatient McDill, Tandace CHW CHW [id number] [facility] 2024-02-25 00:00:00 2024-02-25 00:00:00 Travel 1.2.840.1 [id number] 3.104.2.7 .3.580636 .8 1.2.840.114 350.1.13.10 4.2.7.3.698 [id number] [facility] 2024-02-24 06:39:00 2024-02-24 06:39:00 Outpatient McDill, Tandace CHW CHW [id number] [facility] 2024-02-23 13:00:00 2024-02-23 13:00:00 Outpatient In[facility], Services CHW CHW [id number] [facility] 2024-02-23 07:29:00 2024-02-23 07:29:00 Outpatient McDill, Tandace CHW CHW [id number] [facility] 2024-02-22 19:19:00 2024-02-22 19:19:00 Outpatient McDill, Tandace CHW CHW [id number] [facility] 2024-02-18 06:46:00 2024-02-18 06:46:00 Outpatient McDill, Tandace CHW CHW [id number] [facility] 2024-02-16 10:00:00 2024-02-16 10:00:00 Outpatient McDill, Tandace CHW CHW [id number] [facility] 2024-02-09 01:27:00 2024-02-15 18:57:00 Inpatient ANN YA [facility] [id number] [facility] 2024-02-09 01:27:00 2024-02-15 18:57:00 Hospital Encounter Rj Holloway Shiwan Kamal Nishi, Ann Johnson 1.2.840.1 17813.1.1 3.104.2.7 .3.440540 .8 [id number] [facility] 2024-02-15 00:00:00 2024-02-15 00:00:00 Orders Only Doctor Unassigned, [place] 1.2.840.1 22061.1.1 3.104.2.7 .3.827075 .8 [id number] [facility] 2024-02-13 09:58:00 2024-02-13 14:42:00 Anesthesia Event Kurtis Mckinley Margaret 1.2.840.1 67521.1.1 3.104.2.7 .3.769305 .8 [id number] [facility] 2024-02-11 10:26:00 2024-02-11 11:11:00 Anesthesia Event Aamir Caldera Margaret 1.2.840.1 14232.1.1 3.104.2.7 .3.435225 .8 [id number] [facility] 2024-02-11 09:00:00 2024-02-11 10:09:00 Surgery GautamJonnathan Onofre 1.2.840.1 43974.1.1 3.104.2.7 .3.785701 .8 [id number] [facility] 2024-02-09 00:00:00 2024-02-09 00:00:00 Travel 1.2.840.1 [id number] 3.104.2.7 .3.767534 .8 1.2.840.114 350.1.13.10 4.2.7.3.698 [id number] [facility] 2024-02-05 17:01:00 2024-02-05 17:01:00 [facility] Shaheen Garcia Alden [facility] [id number] [facility] 2024-02-03 17:18:00 2024-02-03 17:18:00 Outpatient Shaheen Garcia [facility] [id number] [facility] 2024-01-31 15:32:00 2024-02-03 15:31:00 Inpatient X MARLENY PARKER [facility] [id number] [facility] 2024-01-31 15:32:00 2024-02-03 15:31:00 Hospital Encounter Freddy Espinoza Arun Shaltoni, Hashem 1.2.840.1 69105.1.1 3.104.2.7 .3.778261 .8 [id number] [facility] 2024-02-02 11:57:00 2024-02-02 11:57:00 Outpatient Jane Dai [facility] [id number] [facility] 2024-02-01 19:09:00 2024-02-01 19:09:00 Outpatient Shaheen Garcia [facility] [id number] [facility] 2024-01-31 00:00:00 2024-01-31 00:00:00 Travel 1.2.840.1 [id number] 3.104.2.7 .3.352484 .8 1.2.840.114 350.1.13.10 4.2.7.3.698 084.8 [id number] [facility] 2024-01-25 10:10:00 2024-01-25 10:10:00 Outpatient Shaheen Garcia [facility] [id number] [facility] 2024-01-25 00:00:00 2024-01-25 00:00:00 Outpatient JOSH ALEXANDER MUHAMMAD [facility] [id number] [facility] 2024-01-18 00:00:00 2024-01-18 00:00:00 Travel 1.2.840.1 05437.1.1 3.104.2.7 .3.561926 .8 1.2.840.114 350.1.13.10 4.2.7.3.698 084.8 [id number] [facility] 2024-01-14 10:30:00 2024-01-14 11:30:00 Office Visit Josh Haines 1.2.840.1 [id number] 3.104.2.7 .3.106866 .8 [id number] [facility] 2024-01-14 10:30:00 2024-01-14 10:30:00 Outpatient R CORTNEY HAINESD JOSH HAINES [facility] [id number] [facility] 2024-01-14 00:00:00 2024-01-14 00:00:00 Travel 1.2.840.1 [id number] 3.104.2.7 .3.597946 .8 1.2.840.114 350.1.13.10 4.2.7.3.698 084.8 [id number] [facility] 2024-01-12 15:18:00 2024-01-12 15:18:00 Outpatient Shaheen Garcia [facility] [id number] [facility] 2024-01-07 09:00:00 2024-01-07 09:00:00 Outpatient Shaheen Garcia W CHW [id number] [facility] 2023-12-29 09:32:00 2023-12-29 09:32:00 Outpatient Bo Steele [facility] [id number] [facility] 2023-12-28 18:31:00 2023-12-28 18:31:00 Outpatient Bo Steele [facility] [id number] [facility] 2023-12-22 00:00:00 2023-12-23 13:54:47 Transition of Care Kayla Helm 1.2.840.1 98711.1.1 3.104.2.7 .3.724939 .8 [id number] [facility] 2023-12-22 13:25:2023-12-22 13:25:00 Outpatient Bo Steele CHW CHW [id number] [facility] 2023-12-16 13:12:00 2023-12-20 09:56:00 Inpatient X CORTNEY HAINESD CORTNEY HAINESD [facility] JIM [id number] [facility] 2023-12-16 13:12:00 2023-12-20 09:56:00 Hospital Encounter Milan Krishna Muhammad [facility] Josh Hinds 1.2.840.1 02856.1.1 3.104.2.7 .3.437810 .8 [id number] [facility] 2023-12-17 15:38:00 2023-12-17 15:38:00 Outpatient Shaheen Garcia CHW CHW [id number] [facility] 2023-12-16 00:00:00 2023-12-16 00:00:00 Travel 1.2.840.1 [id number] 3.104.2.7 .3.424724 .8 1.2.840.114 350.1.13.10 4.2.7.3.698 [id number] [facility] 2023-12-11 00:00:00 2023-12-11 00:00:00 Outpatient Robert_Barbara_Caleb CORONADO VFP VFP [id number] [facility] 2023-11-23 08:48:00 2023-11-23 08:48:00 Outpatient Arielle Benitez CHW CHW [id number] [facility] 2023-11-20 11:21:00 2023-11-20 11:21:00 Outpatient Arielle Benitez CHW [id number] [facility] 2023-11-17 10:20:00 2023-11-17 10:20:00 Outpatient Arielle Benitez CHW [id number] [facility] 2023-11-09 15:47:00 2023-11-09 15:47:00 Outpatient Arielle Benitez CHW CHW [id number] [facility] 2023-08-10 11:02:00 2023-08-10 11:02:00 Outpatient Arielle Benitez CHW CHW [id number] [facility] 2023-07-23 10:16:00 2023-07-23 10:16:00 Outpatient Arielle Benitez CHW CHW [id number] [facility] 2023-07-22 22:25:00 2023-07-22 22:25:00 Outpatient Arielle Benitez CHW CHW [id number] [facility] 2023-07-21 10:20:00 2023-07-21 10:20:00 Outpatient Arielle Benitez CHW CHW [id number] [facility] 2023-07-08 11:31:00 2023-07-08 11:31:00 Outpatient Arielle Benitez CHW CHW [id number] [facility] 2023-07-08 11:31:00 2023-07-08 11:31:00 Outpatient Arielle Benitez CHW CHW [id number] [facility] 2023-05-14 12:24:00 2023-05-14 12:24:00 Outpatient Arielle Benitez CHW CHW [id number] [facility] 2023-05-12 12:54:00 2023-05-12 12:54:00 Outpatient Arielle Benitez CHW CHW [id number] [facility] 2023-05-06 08:16:00 2023-05-06 08:16:00 Outpatient Arielle Benitez CHW CHW [id number] [facility] 2023-04-29 10:00:00 2023-04-29 10:00:00 Outpatient Arielle Benitez CHW CHW [id number] [facility] 2023-04-28 12:27:00 2023-04-28 12:27:00 Outpatient Lisa Zayas CHW CHW [id number] [facility] 2023-04-24 08:00:00 2023-04-24 08:00:00 Outpatient In[facility], Services CHW CHW [id number] [facility] 2023-04-23 13:34:00 2023-04-23 13:34:00 Outpatient Aamir Smith CHW CHW [id number] [facility] 2023-04-21 10:40:00 2023-04-21 10:40:00 Outpatient Arielle Benitez CHW CHW [id number] [facility] 2023-04-13 08:19:00 2023-04-13 08:19:00 Outpatient Arielle Benitez CHW CHW [id number] [facility] 2023-04-02 08:06:00 2023-04-02 08:06:00 Outpatient Arielle Benitez CHW CHW [id number] [facility] 2023-03-11 16:20:00 2023-03-11 16:20:00 Outpatient Arielle Benitez CHW CHW [id number] [facility] 2023-02-25 14:55:00 2023-02-25 14:55:00 Outpatient Arielle Benitez CHW CHW [id number] [facility] 2023-01-23 12:17:00 2023-01-23 12:17:00 Outpatient Arielle Benitez CHW CHW [id number] [facility] 2023-01-16 16:10:00 2023-01-16 16:10:00 Outpatient Arielle Benitez CHW CHW [id number] [facility] 2023-01-14 13:40:00 2023-01-14 13:40:00 Outpatient Arielle Benitez CHW CHW [id number] [facility] 2022-12-31 16:28:00 2022-12-31 16:28:00 Outpatient Shaheen Garcia CHW CHW [id number] [facility] 2022-12-09 15:20:00 2022-12-09 15:20:00 Outpatient Arielle Benitez CHW CHW [id number] [facility] 2022-10-10 14:06:00 2022-10-10 14:06:00 Outpatient Arielel Benitez CHW CHW [id number] [facility] 2022-10-09 21:28:00 2022-10-09 21:28:00 Outpatient Arielle Benitez W W [id number] [facility] 2022-10-07 14:20:00 2022-10-07 14:20:00 Outpatient Arielle Benitez CHW CHW [id number] [facility] 2022-10-02 22:25:00 2022-10-02 22:25:00 Outpatient Arielle Benitez W CHW [id number] [facility] 2022-10-01 09:00:00 2022-10-01 09:00:00 Outpatient In[facility], Services CHW CHW [id number] [facility] 2022-09-01 12:49:00 2022-09-01 12:49:00 Outpatient Arielle Benitez W CHW [id number] [facility] 2022-08-26 14:00:00 2022-08-26 14:00:00 Outpatient Arielle Benitez W W [id number] [facility] 2022-03-04 10:00:00 2022-03-04 10:00:00 Outpatient CUBA BURKS [facility] [id number] [facility] 2022-02-24 09:30:00 2022-02-24 09:30:00 Outpatient CUBA BURKS [facility] [id number] [facility] 2022-01-13 09:34:37 2022-01-13 23:59:00 Outpatient CUBA BURKS [facility] [id number] [facility] 2022-01-13 09:34:37 2022-01-13 23:59:00 [facility] [place] Cheung [facility] 1.2.840.114 350.1.13.10 4.2.7.2.686 [id number] [facility] 2022-01-13 09:30:00 2022-01-13 10:16:33 Outpatient CUBA BURKS [facility] [id number] [facility] 2022-01-13 09:30:00 2022-01-13 10:16:33 Office Visit [place] Salgado Aramis [facility] 1.2.840.114 350.1.13.10 4.2.7.2.686 [id number] [facility] 2021-12-30 09:13:55 2021-12-30 23:59:00 Hospital Encounter [place] Salgado [facility] [id number] 350.1.13.10 [id number] [id number] [facility] 2021-12-30 09:13:48 2021-12-30 23:59:00 Hospital Encounter [place] Salgado [facility] [place] [facility] 1.2.840.114 350.1.13.10 4.2.7.2.686 [id number] [facility] 2021-12-30 14:45:00 2021-12-30 15:40:38 Outpatient R BATSHEVA WHIPPLE [facility] [id number] [facility] 2021-12-30 14:45:00 2021-12-30 15:40:38 Office Visit Batsheva Whipple [facility] 1.2.840.114 350.1.13.10 4.2.7.2.686 [id number] [facility] 2021-12-30 14:45:00 2021-12-30 15:40:38 Outpatient R BATSHEVA WHIPPLE [facility] [id number] [facility] 2021-12-30 09:15:00 2021-12-30 10:02:46 Outpatient R CHUCUBA RODRIGUEZ [facility] [id number] [facility] 2021-12-30 09:15:00 2021-12-30 10:02:46 Office Visit [place] Salgado [facility] 1..840.114 350.1.13.10 4.2.7.2.686 [id number] [facility] 2021-12-30 09:15:00 2021-12-30 10:02:46 Outpatient R CUBA SALGADO [facility] [id number] [facility] 2021-12-09 00:00:00 2021-12-09 00:00:00 Transition of Care Kayla Helm 1..840.114 350.1.13.10 4.2.7.2.686 [id number] [facility] 2021-12-04 14:51:00 2021-12-06 16:45:00 Inpatient X GENARO RUBIO [facility] STR [id number] [facility] 2021-12-04 14:51:00 2021-12-06 16:45:00 Hospital Encounter Alexus Zapata Carlos Javier [facility] 1..840.114 350.1.13.10 4.2.7.2.686 [id number] [facility] 2021-08-22 08:30:00 2021-08-22 08:30:00 Outpatient R AMILCAR OTERO [facility] [id number] [facility] 2021-06-20 08:19:55 2021-06-20 09:09:31 Office Visit Amilcar Otero [facility] 1..840.114 350.1.13.10 4.2.7.2.686 [id number] [facility] 2021-06-20 08:30:00 2021-06-20 08:30:00 Outpatient AMILCAR CARVAJAL [facility] [id number] [facility] 2021-04-11 08:03:48 2021-04-11 09:01:51 Office Visit Amilcar Otero [facility] 1.2.840.114 350.1.13.10 4.2.7.2.686 [id number] [facility] 2021-04-11 08:15:00 2021-04-11 08:15:00 Outpatient AMILCAR CARVAJAL [facility] [id number] [facility] 2021-04-04 08:33:56 2021-04-04 09:09:00 Office Visit Amilcar Otero [facility] 1.2.840.114 350.1.13.10 4.2.7.2.686 [id number] [facility] 2021-04-04 08:45:00 2021-04-04 08:45:00 Outpatient AMILCAR CARVAJAL [facility] [id number] [facility] 2021-04-04 00:00:00 2021-04-04 00:00:00 Orders Only Doctor Unassigned, [place] [facility] 1.2.840.114 350.1.13.10 [id number] [id number] [facility] 2020-12-29 10:50:00 2020-12-29 10:47:56 Outpatient RODERICK BANDA [facility] [id number] [facility] 2020-12-29 00:00:00 2020-12-29 00:00:00 Outpatient [facility] [id number] [facility] 2020-12-09 11:10:00 2020-12-09 11:10:00 Outpatient RODERICK BANDA [facility] [id number] [facility] 2020-12-09 08:05:00 2020-12-09 08:05:00 Outpatient [facility] [id number] [facility] 2020-12-09 00:00:2020-12-09 00:00:00 Outpatient GCCOVIDV [facility] [id number] [facility] Results Test Description Test Time Test Comments Results Result Co mments Source GLUCOSE [id number] 11:48:00* Test Item Value Reference Range Interpretation Comme nts GLUCOSE BEDSIDE (test code = GLUBED) 170 MG/DL 70-110 H Performed by cer tified neck band operator at [facility] GLUCOSE [id number] 07:16:00* Test Item Value Reference Range Interpretation Comme nts GLUCOSE BEDSIDE (test code = GLUBED) 192 MG/DL 70-110 H Performed by cer tified neck band operator at [facility] GLUCOSE [id number] 20:04:00* Test Item Value Reference Range Interpretation Comme nts GLUCOSE BEDSIDE (test code = GLUBED) 149 MG/DL 70-110 H Performed by cer tified neck band operator at [facility] GLUCOSE [id number] 16:56:00* Test Item Value Reference Range Interpretation Comme nts GLUCOSE BEDSIDE (test code = GLUBED) 142 MG/DL 70-110 H Performed by cer tified neck band operator at [facility] GLUCOSE [id number] 11:53:00* Test Item Value Reference Range Interpretation Comme nts GLUCOSE BEDSIDE (test code = GLUBED) 218 MG/DL 70-110 H Performed by cer tified neck band operator at [facility] GLUCOSE [id number] 07:34:00* Test Item Value Reference Range Interpretation Comme nts GLUCOSE BEDSIDE (test code = GLUBED) 150 MG/DL 70-110 H Performed by cer tified neck band operator at [facility] GLUCOSE [id number] 20:45:00* Test Item Value Reference Range Interpretation Comme nts GLUCOSE BEDSIDE (test code = GLUBED) 156 MG/DL 70-110 H Performed by cer tified neck band operator at [facility] GLUCOSE [id number] 08:30:00* Test Item Value Reference Range Interpretation Comme nts GLUCOSE BEDSIDE (test code = GLUBED) 153 MG/DL 70-110 H Performed by cer tified neck band operator at [facility] GLUCOSE [id number] 08:05:00* Test Item Value Reference Range Interpretation Comme nts GLUCOSE BEDSIDE (test code = GLUBED) 158 MG/DL 70-110 H Performed by cer tified neck band operator at [facility] GLUCOSE [id number] 19:53:00* Test Item Value Reference Range Interpretation Comme nts GLUCOSE BEDSIDE (test code = GLUBED) 184 MG/DL 70-110 H Performed by cer tified neck band operator at [facility] GLUCOSE [id number] 16:40:00* Test Item Value Reference Range Interpretation Comme nts GLUCOSE BEDSIDE (test code = GLUBED) 133 MG/DL 70-110 H Performed by cer tified neck band operator at [facility] GLUCOSE [id number] 14:08:00* Test Item Value Reference Range Interpretation Comme nts GLUCOSE BEDSIDE (test code = GLUBED) 128 MG/DL 70-110 H Performed by cer tified neck band operator at [facility] GLUCOSE [id number] 20:02:00* Test Item Value Reference Range Interpretation Comme nts GLUCOSE BEDSIDE (test code = GLUBED) 168 MG/DL 70-110 H Performed by cer tified neck band operator at [facility] GLUCOSE [id number] 16:30:00* Test Item Value Reference Range Interpretation Comme nts GLUCOSE BEDSIDE (test code = GLUBED) 121 MG/DL 70-110 H Performed by cer tified neck band operator at [facility] COMPREHENSIVE METABOLIC [id number] 13:13:00* Test Item Value Reference Range Interpretation Comme nts SODIUM (test code = NA) 143 mEq/L 134-147 N POTASSIUM (test code = K) 3.8 mEq/L 3.4-5.0 N CHLORIDE (test code = CL) 109 mEq/L 100-108 H CARBON DIOXIDE (test code = CO2) 26 mEq/l 21-33 N ANION GAP (test code = GAP) 12 0-20 N GLUCOSE (test code = GLU) 171 mg/dL 77-141 H BLOOD UREA NITROGEN (test code = BUN) 11 mg/dL 7-25 N GLOMERULAR FILTRATION RATE (test code = GFR) 85.6 80-90 N The Glomerular Filtration Rate is a calculated parameterbased on serum Creatinine, patient age and sex. GFR valuesless than 60 mL/min/1.73 square meters are indicative ofChronic Kidney Disease. Values less than 15 mL/min/1.73square meters indicate Kidney failure. The calculation forGFR is based on the CKD-EPI (202) calculation. This formulais race indifferent and is the recommended formula for GFRby the National Kidney Foundation for Adults.The GFR will not calculate if the sex is unknown or if thepatient's age is <18 years. CREATININE (test code = CREAT) 1.0 mg/dL 0.6-1.3 N TOTAL PROTEIN (test code = PROT) 7.4 g/dL 6.4-8.2 N ALBUMIN (test code = ALB) 2.90 g/dL 3.4-5.0 L CALCIUM (test code = CA) 9.3 mg/dL 8.0-10.5 N BILIRUBIN TOTAL (test code = BILT) 1.00 mg/dL 0.0-1.0 N SGOT/AST (test code = AST) 48 IUnit/L 8-34 H SGPT/ALT (test code = ALT) 55 IUnit/L 10-49 H ALKALINE PHOSPHATASE TOTAL (test code = ALKP) 130 IUnit/L 20-125 H [id number] 13:12:00* Test Item Value Reference Range Interpretation Comme nts AMMONIA (test code = AMM) 101 umol/L 11-35 H CBC W/AUTO [id number] 12:50:00* Test Item Value Reference Range Interpretation Comme nts WHITE BLOOD CELL (test code = WBC) 3.9 x10 3/uL 4.5-11.0 L RED BLOOD CELL (test code = RBC) 3.80 x10 6/uL 4.00-5.60 L HEMOGLOBIN (test code = HGB) 9.9 g/dL 12.5-16.9 L HEMATOCRIT (test code = HCT) 31.2 % 37.5-50.7 L MEAN CELL VOLUME (test code = MCV) 82.1 fL 81.0-99.0 N MEAN CELL HGB (test code = MCH) 26.1 pg 27.0-33.0 L MEAN CELL HGB CONCETRATION (test code = MCHC) 31.7 g/dL 33.0-37.0 L RED CELL DISTRIBUTION WIDTH CV (test code = RDW) 19.3 % 11.5-14.5 H RED CELL DISTRIBUTION WIDTH SD (test code = RDW-SD) 58.1 fL 37.0-54.0 H PLATELET COUNT (test code = PLT) 162 x10 3/uL 150-400 N MEAN PLATELET VOLUME (test c ode = MPV) 9.8 fL 7.0-9.0 H NEUTROPHIL % (test code = NT%) 49.5 % 56.0-77.0 L IMMATURE GRANULOCYTE % (test code = IG%) 0.0 % 0.0-2.0 N LYMPHOCYTE % (test code = LY%) 35.2 % 14.0-32.0 H MONOCYTE % (test code = MO%) 11.4 % 4.8-9.0 H EOSINOPHIL % (test code = EO%) 2.6 % 0.3-3.7 N BASOPHIL % (test code = BA%) 1.3 % 0.0-2.0 N NUCLEATED RBC % (test code = NRBC%) 0.0 % 0-0 N NEUTROPHIL # (test code = NT#) 1.91 x10 3/uL 2.0-7.6 L IMMATURE GRANULOCYTE # (test code = IG#) 0.00 x10 3/uL 0.00-0.03 N LYMPHOCYTE # (test code = LY#) 1.36 x10 3/uL 1.0-3.8 N MONOCYTE # (test code = MO#) 0.44 x10 3/uL 0.1-0.8 N EOSINOPHIL # (test code = EO#) 0.10 x10 3/uL 0.0-0.2 N BASOPHIL # (test code = BA#) 0.05 x10 3/uL 0.0-0.2 N NUCLEATED RBC # (test code = NRBC#) 0.00 x10 3/uL 0.0-0.1 N GLUCOSE [id number] 12:26:00* Test Item Value Reference Range Interpretation Comme nts GLUCOSE BEDSIDE (test code = GLUBED) 160 MG/DL 70-110 H Performed by cer tified neck band operator at [facility] GLUCOSE [id number] 08:12:00* Test Item Value Reference Range Interpretation Comme nts GLUCOSE BEDSIDE (test code = GLUBED) 106 MG/DL 70-110 N Performed by cer tified neck band operator at [facility] GLUCOSE [id number] 20:55:00* Test Item Value Reference Range Interpretation Comme nts GLUCOSE BEDSIDE (test code = GLUBED) 159 MG/DL 70-110 H Performed by cer tified neck band operator at [facility] GLUCOSE [id number] 20:28:00* Test Item Value Reference Range Interpretation Comme nts GLUCOSE BEDSIDE (test code = GLUBED) 145 MG/DL 70-110 H Performed by cer tified neck band operator at [facility] GLUCOSE [id number] 16:16:00* Test Item Value Reference Range Interpretation Comme nts GLUCOSE BEDSIDE (test code = GLUBED) 133 MG/DL 70-110 H Performed by cer tified neck band operator at [facility] GLUCOSE [id number] 16:15:00* Test Item Value Reference Range Interpretation Comme nts GLUCOSE BEDSIDE (test code = GLUBED) 106 MG/DL 70-110 N Performed by cer tified neck band operator at [facility] [id number] 03:08:00* Test Item Value Reference Range Interpretation Comme nts AMMONIA (test code = AMM) 189 umol/L 11-35 H GLUCOSE [id number] 22:18:00* Test Item Value Reference Range Interpretation Comme nts GLUCOSE BEDSIDE (test code = GLUBED) 123 MG/DL 70-110 H Performed by cer tified neck band operator at [facility] GLUCOSE [id number] 16:47:00* Test Item Value Reference Range Interpretation Comme nts GLUCOSE BEDSIDE (test code = GLUBED) 77 MG/DL 70-110 N Performed by cer tified neck band operator at [facility] GLUCOSE [id number] 12:36:00* Test Item Value Reference Range Interpretation Comme nts GLUCOSE BEDSIDE (test code = GLUBED) 174 MG/DL 70-110 H Performed by cer tified neck band operator at [facility] [id number] 04:43:00* Test Item Value Reference Range Interpretation Comme nts AMMONIA (test code = AMM) 183 umol/L 11-35 H GLUCOSE [id number] 19:48:00* Test Item Value Reference Range Interpretation Comme nts GLUCOSE BEDSIDE (test code = GLUBED) 229 MG/DL 70-110 H Performed by cer tified neck band operator at [facility] GLUCOSE [id number] 18:09:00* Test Item Value Reference Range Interpretation Comme nts GLUCOSE BEDSIDE (test code = GLUBED) 83 MG/DL 70-110 N Performed by cer tified neck band operator at [facility] [id number] 14:42:00* Test Item Value Reference Range Interpretation Comme nts AMMONIA (test code = AMM) 168 umol/L 11-35 H GLUCOSE [id number] 12:54:00* Test Item Value Reference Range Interpretation Comme nts GLUCOSE BEDSIDE (test code = GLUBED) 168 MG/DL 70-110 H Performed by cer tified neck band operator at [facility] GLUCOSE [id number] 09:06:00* Test Item Value Reference Range Interpretation Comme nts GLUCOSE BEDSIDE (test code = GLUBED) 167 MG/DL 70-110 H Performed by cer tified neck band operator at [facility] COMPREHENSIVE METABOLIC [id number] 07:13:00* Test Item Value Reference Range Interpretation Comme nts SODIUM (test code = NA) 142 mEq/L 134-147 N POTASSIUM (test code = K) 3.8 mEq/L 3.4-5.0 N CHLORIDE (test code = CL) 109 mEq/L 100-108 H CARBON DIOXIDE (test code = CO2) 28 mEq/l 21-33 N ANION GAP (test code = GAP) 9 0-20 N GLUCOSE (test code = GLU) 215 mg/dL 77-141 H BLOOD UREA NITROGEN (test code = BUN) 14 mg/dL 7-25 N GLOMERULAR FILTRATION RATE (test code = GFR) 85.6 80-90 N The Glomerular Filtration Rate is a calculated parameterbased on serum Creatinine, patient age and sex. GFR valuesless than 60 mL/min/1.73 square meters are indicative ofChronic Kidney Disease. Values less than 15 mL/min/1.73square meters indicate Kidney failure. The calculation forGFR is based on the CKD-EPI (202) calculation. This formulais race indifferent and is the recommended formula for GFRby the National Kidney Foundation for Adults.The GFR will not calculate if the sex is unknown or if thepatient's age is <18 years. CREATININE (test code = CREAT) 1.0 mg/dL 0.6-1.3 N TOTAL PROTEIN (test code = PROT) 6.0 g/dL 6.4-8.2 L ALBUMIN (test code = ALB) 2.50 g/dL 3.4-5.0 L CALCIUM (test code = CA) 8.5 mg/dL 8.0-10.5 N BILIRUBIN TOTAL (test code = BILT) 0.60 mg/dL 0.0-1.0 N SGOT/AST (test code = AST) 32 IUnit/L 8-34 N SGPT/ALT (test code = ALT) 35 IUnit/L 10-49 N ALKALINE PHOSPHATASE TOTAL (test code = ALKP) 100 IUnit/L 20-125 N [id number] 07:13:00* Test Item Value Reference Range Interpretation Comme nts PHOSPHOROUS (test code = PHOS) 3.8 MG/DL 2.5-4.9 N [id number] 07:13:00* Test Item Value Reference Range Interpretation Comme nts MAGNESIUM (test code = MAG) 2.12 mg/dL 1.6-2.6 N CALCIUM [id number] 07:13:00* Test Item Value Reference Range Interpretation Comme nts CALCIUM IONIZED (test code = ALEIDA) 1.15 MMOL/L 1.09-1.30 N CBC W/AUTO [id number] 06:41:00* Test Item Value Reference Range Interpretation Comme nts WHITE BLOOD CELL (test code = WBC) 3.8 x10 3/uL 4.5-11.0 L RED BLOOD CELL (test code = RBC) 3.07 x10 6/uL 4.00-5.60 L HEMOGLOBIN (test code = HGB) 8.2 g/dL 12.5-16.9 L HEMATOCRIT (test code = HCT) 25.7 % 37.5-50.7 L MEAN CELL VOLUME (test code = MCV) 83.7 fL 81.0-99.0 N MEAN CELL HGB (test code = MCH) 26.7 pg 27.0-33.0 L MEAN CELL HGB CONCETRATION (test code = MCHC) 31.9 g/dL 33.0-37.0 L RED CELL DISTRIBUTION WIDTH CV (test code = RDW) 19.9 % 11.5-14.5 H RED CELL DISTRIBUTION WIDTH SD (test code = RDW-SD) 60.8 fL 37.0-54.0 H PLATELET COUNT (test code = PLT) 126 x10 3/uL 150-400 L MEAN PLATELET VOLUME (test c ode = MPV) 10.8 fL 7.0-9.0 H NEUTROPHIL % (test code = NT%) 37.1 % 56.0-77.0 L IMMATURE GRANULOCYTE % (test code = IG%) 0.5 % 0.0-2.0 N LYMPHOCYTE % (test code = LY%) 40.6 % 14.0-32.0 H MONOCYTE % (test code = MO%) 17.0 % 4.8-9.0 H EOSINOPHIL % (test code = EO%) 4.0 % 0.3-3.7 H BASOPHIL % (test code = BA%) 0.8 % 0.0-2.0 N NUCLEATED RBC % (test code = NRBC%) 0.0 % 0-0 N NEUTROPHIL # (test code = NT#) 1.40 x10 3/uL 2.0-7.6 L IMMATURE GRANULOCYTE # (test code = IG#) 0.02 x10 3/uL 0.00-0.03 N LYMPHOCYTE # (test code = LY#) 1.53 x10 3/uL 1.0-3.8 N MONOCYTE # (test code = MO#) 0.64 x10 3/uL 0.1-0.8 N EOSINOPHIL # (test code = EO#) 0.15 x10 3/uL 0.0-0.2 N BASOPHIL # (test code = BA#) 0.03 x10 3/uL 0.0-0.2 N NUCLEATED RBC # (test code = NRBC#) 0.00 x10 3/uL 0.0-0.1 N GLUCOSE [id number] 19:52:00* Test Item Value Reference Range Interpretation Comme nts GLUCOSE BEDSIDE (test code = GLUBED) 141 MG/DL 70-110 H Performed by cer tified neck band operator at [facility] GLUCOSE [id number] 17:06:00* Test Item Value Reference Range Interpretation Comme nts GLUCOSE BEDSIDE (test code = GLUBED) 80 MG/DL 70-110 N Performed by cer tified neck band operator at [facility] [id number] 13:36:00* Test Item Value Reference Range Interpretation Comme nts AMMONIA (test code = AMM) 153 umol/L 11-35 H GLUCOSE [id number] 11:49:00* Test Item Value Reference Range Interpretation Comme nts GLUCOSE BEDSIDE (test code = GLUBED) 201 MG/DL 70-110 H Performed by cer tified neck band operator at [facility] GLUCOSE [id number] 08:25:00* Test Item Value Reference Range Interpretation Comme nts GLUCOSE BEDSIDE (test code = GLUBED) 166 MG/DL 70-110 H Performed by cer jried neck band operator at [facility] CBC W/AUTO [id number] 06:05:00* Test Item Value Reference Range Interpretation Comme nts WHITE BLOOD CELL (test code = WBC) 4.7 x10 3/uL 4.5-11.0 N RED BLOOD CELL (test code = RBC) 3.15 x10 6/uL 4.00-5.60 L HEMOGLOBIN (test code = HGB) 8.4 g/dL 12.5-16.9 L HEMATOCRIT (test code = HCT) 26.5 % 37.5-50.7 L MEAN CELL VOLUME (test code = MCV) 84.1 fL 81.0-99.0 N MEAN CELL HGB (test code = MCH) 26.7 pg 27.0-33.0 L MEAN CELL HGB CONCETRATION (test code = MCHC) 31.7 g/dL 33.0-37.0 L RED CELL DISTRIBUTION WIDTH CV (test code = RDW) 20.3 % 11.5-14.5 H RED CELL DISTRIBUTION WIDTH SD (test code = RDW-SD) 61.7 fL 37.0-54.0 H PLATELET COUNT (test code = PLT) 128 x10 3/uL 150-400 L MEAN PLATELET VOLUME (test c ode = MPV) 10.7 fL 7.0-9.0 H NEUTROPHIL % (test code = NT%) 43.0 % 56.0-77.0 L IMMATURE GRANULOCYTE % (test code = IG%) 0.2 % 0.0-2.0 N LYMPHOCYTE % (test code = LY%) 38.0 % 14.0-32.0 H MONOCYTE % (test code = MO%) 14.6 % 4.8-9.0 H EOSINOPHIL % (test code = EO%) 3.4 % 0.3-3.7 N BASOPHIL % (test code = BA%) 0.8 % 0.0-2.0 N NUCLEATED RBC % (test code = NRBC%) 0.4 % 0-0 H NEUTROPHIL # (test code = NT#) 2.02 x10 3/uL 2.0-7.6 N IMMATURE GRANULOCYTE # (test code = IG#) 0.01 x10 3/uL 0.00-0.03 N LYMPHOCYTE # (test code = LY#) 1.79 x10 3/uL 1.0-3.8 N MONOCYTE # (test code = MO#) 0.69 x10 3/uL 0.1-0.8 N EOSINOPHIL # (test code = EO#) 0.16 x10 3/uL 0.0-0.2 N BASOPHIL # (test code = BA#) 0.04 x10 3/uL 0.0-0.2 N NUCLEATED RBC # (test code = NRBC#) 0.02 x10 3/uL 0.0-0.1 N COMPREHENSIVE METABOLIC [id number] 05:55:00* Test Item Value Reference Range Interpretation Comme nts SODIUM (test code = NA) 142 mEq/L 134-147 N POTASSIUM (test code = K) 4.5 mEq/L 3.4-5.0 N CHLORIDE (test code = CL) 109 mEq/L 100-108 H CARBON DIOXIDE (test code = CO2) 29 mEq/l 21-33 N ANION GAP (test code = GAP) 8 0-20 N GLUCOSE (test code = GLU) 143 mg/dL 77-141 H BLOOD UREA NITROGEN (test code = BUN) 11 mg/dL 7-25 N GLOMERULAR FILTRATION RATE (test code = GFR) 76.4 80-90 L The Glomerular Filtration Rate is a calculated parameterbased on serum Creatinine, patient age and sex. GFR valuesless than 60 mL/min/1.73 square meters are indicative ofChronic Kidney Disease. Values less than 15 mL/min/1.73square meters indicate Kidney failure. The calculation forGFR is based on the CKD-EPI (202) calculation. This formulais race indifferent and is the recommended formula for GFRby the National Kidney Foundation for Adults.The GFR will not calculate if the sex is unknown or if thepatient's age is <18 years. CREATININE (test code = CREAT) 1.1 mg/dL 0.6-1.3 N TOTAL PROTEIN (test code = PROT) 5.8 g/dL 6.4-8.2 L ALBUMIN (test code = ALB) 2.40 g/dL 3.4-5.0 L CALCIUM (test code = CA) 8.4 mg/dL 8.0-10.5 N BILIRUBIN TOTAL (test code = BILT) 0.60 mg/dL 0.0-1.0 N SGOT/AST (test code = AST) 36 IUnit/L 8-34 H SGPT/ALT (test code = ALT) 35 IUnit/L 10-49 N ALKALINE PHOSPHATASE TOTAL (test code = ALKP) 96 IUnit/L 20-125 N [id number] 05:55:00* Test Item Value Reference Range Interpretation Comme nts PHOSPHOROUS (test code = PHOS) 4.0 MG/DL 2.5-4.9 N [id number] 05:55:00* Test Item Value Reference Range Interpretation Comme nts MAGNESIUM (test code = MAG) 2.15 mg/dL 1.6-2.6 N CALCIUM [id number] 05:55:00* Test Item Value Reference Range Interpretation Comme nts CALCIUM IONIZED (test code = ALEIDA) 1.06 MMOL/L 1.09-1.30 L GLUCOSE [id number] 21:28:00* Test Item Value Reference Range Interpretation Comme nts GLUCOSE BEDSIDE (test code = GLUBED) 179 MG/DL 70-110 H Performed by cer tified neck band operator at [facility] GLUCOSE [id number] 12:00:00* Test Item Value Reference Range Interpretation Comme nts GLUCOSE BEDSIDE (test code = GLUBED) 138 MG/DL 70-110 H Performed by cer tified neck band operator at [facility] COMPREHENSIVE METABOLIC [id number] 05:08:00* Test Item Value Reference Range Interpretation Comme nts SODIUM (test code = NA) 139 mEq/L 134-147 N POTASSIUM (test code = K) 4.3 mEq/L 3.4-5.0 N CHLORIDE (test code = CL) 106 mEq/L 100-108 N CARBON DIOXIDE (test code = CO2) 28 mEq/l 21-33 N ANION GAP (test code = GAP) 9 0-20 N GLUCOSE (test code = GLU) 178 mg/dL 77-141 H BLOOD UREA NITROGEN (test code = BUN) 12 mg/dL 7-25 N GLOMERULAR FILTRATION RATE (test code = GFR) 85.6 80-90 N The Glomerular Filtration Rate is a calculated parameterbased on serum Creatinine, patient age and sex. GFR valuesless than 60 mL/min/1.73 square meters are indicative ofChronic Kidney Disease. Values less than 15 mL/min/1.73square meters indicate Kidney failure. The calculation forGFR is based on the CKD-EPI (2020) calculation. This formulais race indifferent and is the recommended formula for GFRby the National Kidney Foundation for Adults.The GFR will not calculate if the sex is unknown or if thepatient's age is <18 years. CREATININE (test code = CREAT) 1.0 mg/dL 0.6-1.3 N TOTAL PROTEIN (test code = PROT) 5.8 g/dL 6.4-8.2 L ALBUMIN (test code = ALB) 2.50 g/dL 3.4-5.0 L CALCIUM (test code = CA) 8.0 mg/dL 8.0-10.5 N BILIRUBIN TOTAL (test code = BILT) 0.50 mg/dL 0.0-1.0 N SGOT/AST (test code = AST) 31 IUnit/L 8-34 N SGPT/ALT (test code = ALT) 39 IUnit/L 10-49 N ALKALINE PHOSPHATASE TOTAL (test code = ALKP) 97 IUnit/L 20-125 N [id number] 05:08:00* Test Item Value Reference Range Interpretation Comme nts PHOSPHOROUS (test code = PHOS) 3.4 MG/DL 2.5-4.9 N [id number] 05:08:00* Test Item Value Reference Range Interpretation Comme nts MAGNESIUM (test code = MAG) 1.85 mg/dL 1.6-2.6 N CALCIUM [id number] 05:08:00* Test Item Value Reference Range Interpretation Comme nts CALCIUM IONIZED (test code = ALEIDA) 1.09 MMOL/L 1.09-1.30 N CBC W/AUTO [id number] 04:24:00* Test Item Value Reference Range Interpretation Comme nts WHITE BLOOD CELL (test code = WBC) 6.5 x10 3/uL 4.5-11.0 N RED BLOOD CELL (test code = RBC) 3.10 x10 6/uL 4.00-5.60 L HEMOGLOBIN (test code = HGB) 8.2 g/dL 12.5-16.9 L HEMATOCRIT (test code = HCT) 25.5 % 37.5-50.7 L MEAN CELL VOLUME (test code = MCV) 82.3 fL 81.0-99.0 N MEAN CELL HGB (test code = MCH) 26.5 pg 27.0-33.0 L MEAN CELL HGB CONCETRATION (test code = MCHC) 32.2 g/dL 33.0-37.0 L RED CELL DISTRIBUTION WIDTH CV (test code = RDW) 20.3 % 11.5-14.5 H RED CELL DISTRIBUTION WIDTH SD (test code = RDW-SD) 59.2 fL 37.0-54.0 H PLATELET COUNT (test code = PLT) 116 x10 3/uL 150-400 L MEAN PLATELET VOLUME (test c ode = MPV) 10.6 fL 7.0-9.0 H NEUTROPHIL % (test code = NT%) 51.9 % 56.0-77.0 L IMMATURE GRANULOCYTE % (test code = IG%) 0.5 % 0.0-2.0 N LYMPHOCYTE % (test code = LY%) 31.4 % 14.0-32.0 N MONOCYTE % (test code = MO%) 13.6 % 4.8-9.0 H EOSINOPHIL % (test code = EO%) 1.8 % 0.3-3.7 N BASOPHIL % (test code = BA%) 0.8 % 0.0-2.0 N NUCLEATED RBC % (test code = NRBC%) 0.0 % 0-0 N NEUTROPHIL # (test code = NT#) 3.37 x10 3/uL 2.0-7.6 N IMMATURE GRANULOCYTE # (test code = IG#) 0.03 x10 3/uL 0.00-0.03 N LYMPHOCYTE # (test code = LY#) 2.04 x10 3/uL 1.0-3.8 N MONOCYTE # (test code = MO#) 0.88 x10 3/uL 0.1-0.8 H EOSINOPHIL # (test code = EO#) 0.12 x10 3/uL 0.0-0.2 N BASOPHIL # (test code = BA#) 0.05 x10 3/uL 0.0-0.2 N NUCLEATED RBC # (test code = NRBC#) 0.00 x10 3/uL 0.0-0.1 N [id number] 04:09:00* Test Item Value Reference Range Interpretation Comme nts AMMONIA (test code = AMM) 124 umol/L 11-35 H GLUCOSE [id number] 20:16:00* Test Item Value Reference Range Interpretation Comme nts GLUCOSE BEDSIDE (test code = GLUBED) 156 MG/DL 70-110 H Performed by cer tified neck band operator at [facility] GLUCOSE [id number] 17:50:00* Test Item Value Reference Range Interpretation Comme nts GLUCOSE BEDSIDE (test code = GLUBED) 139 MG/DL 70-110 H Performed by cer tified neck band operator at [facility] HGB [id number] 14:42:00* Test Item Value Reference Range Interpretation Comme nts HEMOGLOBIN (test code = HGB) 7.5 g/dL 12.5-16.9 L HEMATOCRIT (test code = HCT) 23.4 % 37.5-50.7 L GLUCOSE [id number] 12:26:00* Test Item Value Reference Range Interpretation Comme nts GLUCOSE BEDSIDE (test code = GLUBED) 224 MG/DL 70-110 H Performed by cer tified neck band operator at [facility] GLUCOSE [id number] 08:19:00* Test Item Value Reference Range Interpretation Comme nts GLUCOSE BEDSIDE (test code = GLUBED) 256 MG/DL 70-110 H Performed by cer tified neck band operator at [facility] [id number] 03:53:00* Test Item Value Reference Range Interpretation Comme nts AMMONIA (test code = AMM) 81 umol/L 11-35 H BASIC METABOLIC [id number] 03:48:00* Test Item Value Reference Range Interpretation Comme nts SODIUM (test code = NA) 140 mEq/L 134-147 N POTASSIUM (test code = K) 4.0 mEq/L 3.4-5.0 N CHLORIDE (test code = CL) 109 mEq/L 100-108 H CARBON DIOXIDE (test code = CO2) 26 mEq/l 21-33 N ANION GAP (test code = GAP) 9 0-20 N GLUCOSE (test code = GLU) 210 mg/dL 77-141 H BLOOD UREA NITROGEN (test code = BUN) 10 mg/dL 7-25 N GLOMERULAR FILTRATION RATE (test code = GFR) 100.7 80-90 H The Glomerular Filtration Rate is a calculated parameterbased on serum Creatinine, patient age and sex. GFR valuesless than 60 mL/min/1.73 square meters are indicative ofChronic Kidney Disease. Values less than 15 mL/min/1.73square meters indicate Kidney failure. The calculation forGFR is based on the CKD-EPI (202) calculation. This formulais race indifferent and is the recommended formula for GFRby the National Kidney Foundation for Adults.The GFR will not calculate if the sex is unknown or if thepatient's age is <18 years. CREATININE (test code = CREAT) 0.8 mg/dL 0.6-1.3 N CALCIUM (test code = CA) 8.2 mg/dL 8.0-10.5 N CBC W/AUTO [id number] 03:41:00* Test Item Value Reference Range Interpretation Comme nts WHITE BLOOD CELL (test code = WBC) 7.5 x10 3/uL 4.5-11.0 RED BLOOD CELL (test code = RBC) 3.05 x10 6/uL 4.00-5.60 L HEMOGLOBIN (test code = HGB) 8.0 g/dL 12.5-16.9 L HEMATOCRIT (test code = HCT) 25.0 % 37.5-50.7 L MEAN CELL VOLUME (test code = MCV) 82.0 fL 81.0-99.0 N MEAN CELL HGB (test code = MCH) 26.2 pg 27.0-33.0 L MEAN CELL HGB CONCETRATION (test code = MCHC) 32.0 g/dL 33.0-37.0 L RED CELL DISTRIBUTION WIDTH CV (test code = RDW) 20.0 % 11.5-14.5 H RED CELL DISTRIBUTION WIDTH SD (test code = RDW-SD) 58.3 fL 37.0-54.0 H PLATELET COUNT (test code = PLT) 104 x10 3/uL 150-400 L MEAN PLATELET VOLUME (test c ode = MPV) 10.3 fL 7.0-9.0 H NEUTROPHIL % (test code = NT%) 74.0 % 56.0-77.0 N IMMATURE GRANULOCYTE % (test code = IG%) 0.3 % 0.0-2.0 N LYMPHOCYTE % (test code = LY%) 14.6 % 14.0-32.0 N MONOCYTE % (test code = MO%) 10.8 % 4.8-9.0 H EOSINOPHIL % (test code = EO%) 0.0 % 0.3-3.7 L BASOPHIL % (test code = BA%) 0.3 % 0.0-2.0 N NUCLEATED RBC % (test code = NRBC%) 0.0 % 0-0 N NEUTROPHIL # (test code = NT#) 5.58 x10 3/uL 2.0-7.6 N IMMATURE GRANULOCYTE # (test code = IG#) 0.02 x10 3/uL 0.00-0.03 N LYMPHOCYTE # (test code = LY#) 1.10 x10 3/uL 1.0-3.8 N MONOCYTE # (test code = MO#) 0.81 x10 3/uL 0.1-0.8 H EOSINOPHIL # (test code = EO#) 0.00 x10 3/uL 0.0-0.2 N BASOPHIL # (test code = BA#) 0.02 x10 3/uL 0.0-0.2 N NUCLEATED RBC # (test code = NRBC#) 0.00 x10 3/uL 0.0-0.1 N GLUCOSE [id number] 20:01:00* Test Item Value Reference Range Interpretation Comme nts GLUCOSE BEDSIDE (test code = GLUBED) 272 MG/DL 70-110 H Performed by cer tified neck band operator at [facility] [id number] 18:43:00* Test Item Value Reference Range Interpretation Comme nts AMMONIA (test code = AMM) 91 umol/L 11-35 H BASIC METABOLIC [id number] 18:39:00* Test Item Value Reference Range Interpretation Comme nts SODIUM (test code = NA) 141 mEq/L 134-147 N POTASSIUM (test code = K) 4.0 mEq/L 3.4-5.0 N CHLORIDE (test code = CL) 109 mEq/L 100-108 H CARBON DIOXIDE (test code = CO2) 26 mEq/l 21-33 N ANION GAP (test code = GAP) 10 0-20 N GLUCOSE (test code = GLU) 273 mg/dL 77-141 H BLOOD UREA NITROGEN (test code = BUN) 10 mg/dL 7-25 GLOMERULAR FILTRATION RATE (test code = GFR) 97.2 80-90 H The Glomerular Filtration Rate is a calculated parameterbased on serum Creatinine, patient age and sex. GFR valuesless than 60 mL/min/1.73 square meters are indicative ofChronic Kidney Disease. Values less than 15 mL/min/1.73square meters indicate Kidney failure. The calculation forGFR is based on the CKD-EPI (202) calculation. This formulais race indifferent and is the recommended formula for GFRby the National Kidney Foundation for Adults.The GFR will not calculate if the sex is unknown or if thepatient's age is <18 years. CREATININE (test code = CREAT) 0.9 mg/dL 0.6-1.3 N CALCIUM (test code = CA) 8.3 mg/dL 8.0-10.5 N HGB [id number] 18:26:00* Test Item Value Reference Range Interpretation Comme [facility] HEMOGLOBIN (test code = HGB) 9.0 g/dL 12.5-16.9 L HEMATOCRIT (test code = HCT) 27.2 % 37.5-50.7 L [id number] 15:19:00* Test Item Value Reference Range Interpretation Comme nts ACT-ISTAT (test code = ACTI) 262 SEC 74-137 H Performed by cer tified neck band operator at [facility] [id number] 14:53:00* Test Item Value Reference Range Interpretation Comme nts ACT-ISTAT (test code = ACTI) 257 SEC 74-137 H Performed by cer tified neck band operator at [facility] [id number] 14:08:00* Test Item Value Reference Range Interpretation Comme nts ACT-ISTAT (test code = ACTI) 177 SEC 74-137 H Performed by cer tified neck band operator at [facility] POC ARTERIAL BLOOD [id number] 14:02:00* Test Item Value Reference Range Interpretation Comme [facility] POC ARTERIAL BLOOD GAS PH (t est code = POCPHA) 7.426 7.35-7.45 N POC ARTERIAL BLOOD GAS PCO2 (test code = IRMBZO3O) 37.8 mmHg 35.0-45 N POC TCO2 ARTERIAL (test code = POCTCO2) 26.0 POC ARTERIAL BLOOD GAS PO2 ( test code = XQAFI6J) 548.2 mmHg 80-100.0 HH POC HCO3 ARTERIAL (test code = HWVNVY3U) 24.9 MMOL/L 22.0-26.0 N POC BASE EXCESS (test code = POCBEA) 0.5 MMOL/L -4.0-4.0 N POC O2 SATURATION (test code = POCO2S) 100.0 % 90-100 N BASIC METABOLIC [id number] 14:02:00* Test Item Value Reference Range Interpretation Comme nts SODIUM (test code = NA/ABG) 142 mmol/L 134-147 N POTASSIUM (test code = K/ABG) 4.0 mmol/L 3.4-5.0 N CHLORIDE (test code = CL/ABG) 109 mmol/L 100-108 H CREATININE ABG (test code = CREAABG) 0.7 mg/dL 0.8-1.3 L POC IONIZED CALCIUM (test co de = POCCA) 1.16 MMOL/L 1.12-1.32 N POC GLUCOSE (test code = POCGLU) 194 MG/DL 70-110 H HEMOGLOBIN [id number] 14:02:00* Test Item Value Reference Range Interpretation Comme nts HEMOGLOBIN ABG (test code = HGB/ABG) 9.8 G/DL 12.5-16.9 L [id number] 14:02:00* Test Item Value Reference Range Interpretation Comme nts HEMATOCRIT (test code = HCT/ABG) 29 % 37.5-50.7 L POC LACTIC [id number] 14:02:00* Test Item Value Reference Range Interpretation Comme nts POC LACTIC ACID (test code = POCLAC) 0.4 mmol/l 0.9-1.7 L GLUCOSE [id number] 12:26:00* Test Item Value Reference Range Interpretation Comme nts GLUCOSE BEDSIDE (test code = GLUBED) 192 MG/DL 70-110 H Performed by cer tified neck band operator at [facility] GLUCOSE [id number] 10:52:00* Test Item Value Reference Range Interpretation Comme nts GLUCOSE BEDSIDE (test code = GLUBED) 185 MG/DL 70-110 H Performed by cer tified neck band operator at [facility] GLUCOSE [id number] 07:25:00* Test Item Value Reference Range Interpretation Comme nts GLUCOSE BEDSIDE (test code = GLUBED) 166 MG/DL 70-110 H Performed by cer ronit neck band operator at [facility] BASIC METABOLIC [id number] 06:32:00* Test Item Value Reference Range Interpretation Comme nts SODIUM (test code = NA) 140 mEq/L 134-147 N POTASSIUM (test code = K) 4.0 mEq/L 3.4-5.0 N CHLORIDE (test code = CL) 108 mEq/L 100-108 N CARBON DIOXIDE (test code = CO2) 26 mEq/l 21-33 N ANION GAP (test code = GAP) 10 0-20 N GLUCOSE (test code = GLU) 220 mg/dL 77-141 H BLOOD UREA NITROGEN (test code = BUN) 6 mg/dL 7-25 L GLOMERULAR FILTRATION RATE (test code = GFR) 97.2 80-90 H The Glomerular Filtration Rate is a calculated parameterbased on serum Creatinine, patient age and sex. GFR valuesless than 60 mL/min/1.73 square meters are indicative ofChronic Kidney Disease. Values less than 15 mL/min/1.73square meters indicate Kidney failure. The calculation forGFR is based on the CKD-EPI (202) calculation. This formulais race indifferent and is the recommended formula for GFRby the National Kidney Foundation for Adults.The GFR will not calculate if the sex is unknown or if thepatient's age is <18 years. CREATININE (test code = CREAT) 0.9 mg/dL 0.6-1.3 N CALCIUM (test code = CA) 8.8 mg/dL 8.0-10.5 N CBC W/AUTO [id number] 06:03:00* Test Item Value Reference Range Interpretation Comme nts WHITE BLOOD CELL (test code = WBC) 2.7 x10 3/uL 4.5-11.0 L RED BLOOD CELL (test code = RBC) 3.25 x10 6/uL 4.00-5.60 L HEMOGLOBIN (test code = HGB) 8.7 g/dL 12.5-16.9 L HEMATOCRIT (test code = HCT) 27.3 % 37.5-50.7 L MEAN CELL VOLUME (test code = MCV) 84.0 fL 81.0-99.0 MEAN CELL HGB (test code = MCH) 26.8 pg 27.0-33.0 L MEAN CELL HGB CONCETRATION (test code = MCHC) 31.9 g/dL 33.0-37.0 L RED CELL DISTRIBUTION WIDTH CV (test code = RDW) 19.9 % 11.5-14.5 H RED CELL DISTRIBUTION WIDTH SD (test code = RDW-SD) 59.2 fL 37.0-54.0 H PLATELET COUNT (test code = PLT) 84 x10 3/uL 150-400 L MEAN PLATELET VOLUME (test c ode = MPV) 10.5 fL 7.0-9.0 H NEUTROPHIL % (test code = NT%) 33.4 % 56.0-77.0 L IMMATURE GRANULOCYTE % (test code = IG%) 0.4 % 0.0-2.0 N LYMPHOCYTE % (test code = LY%) 41.9 % 14.0-32.0 H MONOCYTE % (test code = MO%) 18.8 % 4.8-9.0 H EOSINOPHIL % (test code = EO%) 4.4 % 0.3-3.7 H BASOPHIL % (test code = BA%) 1.1 % 0.0-2.0 N NUCLEATED RBC % (test code = NRBC%) 0.7 % 0-0 H NEUTROPHIL # (test code = NT#) 0.91 x10 3/uL 2.0-7.6 L IMMATURE GRANULOCYTE # (test code = IG#) 0.01 x10 3/uL 0.00-0.03 N LYMPHOCYTE # (test code = LY#) 1.14 x10 3/uL 1.0-3.8 N MONOCYTE # (test code = MO#) 0.51 x10 3/uL 0.1-0.8 N EOSINOPHIL # (test code = EO#) 0.12 x10 3/uL 0.0-0.2 N BASOPHIL # (test code = BA#) 0.03 x10 3/uL 0.0-0.2 N NUCLEATED RBC # (test code = NRBC#) 0.02 x10 3/uL 0.0-0.1 N GLUCOSE [id number] 20:14:00* Test Item Value Reference Range Interpretation Comme nts GLUCOSE BEDSIDE (test code = GLUBED) 212 MG/DL 70-110 H Performed by cer tified neck band operator at [facility] GLUCOSE [id number] 16:56:00* Test Item Value Reference Range Interpretation Comme nts GLUCOSE BEDSIDE (test code = GLUBED) 233 MG/DL 70-110 H Performed by cer tified neck band operator at [facility] GLUCOSE [id number] 12:35:00* Test Item Value Reference Range Interpretation Comme nts GLUCOSE BEDSIDE (test code = GLUBED) 150 MG/DL 70-110 H Performed by cer tified neck band operator at [facility] GLUCOSE [id number] 09:05:00* Test Item Value Reference Range Interpretation Comme nts GLUCOSE BEDSIDE (test code = GLUBED) 256 MG/DL 70-110 H Performed by cer tified neck band operator at [facility] GLUCOSE [id number] 19:15:00* Test Item Value Reference Range Interpretation Comme nts GLUCOSE BEDSIDE (test code = GLUBED) 227 MG/DL 70-110 H Performed by cer tified neck band operator at [facility] GLUCOSE [id number] 16:41:00* Test Item Value Reference Range Interpretation Comme nts GLUCOSE BEDSIDE (test code = GLUBED) 178 MG/DL 70-110 H Performed by cer tified neck band operator at [facility] GLUCOSE [id number] 11:24:00* Test Item Value Reference Range Interpretation Comme nts GLUCOSE BEDSIDE (test code = GLUBED) 192 MG/DL 70-110 H Performed by cer tified neck band operator at [facility] GLUCOSE [id number] 08:26:00* Test Item Value Reference Range Interpretation Comme nts GLUCOSE BEDSIDE (test code = GLUBED) 195 MG/DL 70-110 H Performed by cer tified neck band operator at [facility] GLUCOSE [id number] 16:47:00* Test Item Value Reference Range Interpretation Comme nts GLUCOSE BEDSIDE (test code = GLUBED) 235 MG/DL 70-110 H Performed by cer tified neck band operator at [facility] GLUCOSE [id number] 12:43:00* Test Item Value Reference Range Interpretation Comme nts GLUCOSE BEDSIDE (test code = GLUBED) 186 MG/DL 70-110 H Performed by cer tified neck band operator at [facility] GLUCOSE [id number] 08:06:00* Test Item Value Reference Range Interpretation Comme nts GLUCOSE BEDSIDE (test code = GLUBED) 149 MG/DL 70-110 H Performed by cer tified neck band operator at [facility] BASIC METABOLIC [id number] 05:58:00* Test Item Value Reference Range Interpretation Comme nts SODIUM (test code = NA) 140 mEq/L 134-147 N POTASSIUM (test code = K) 3.9 mEq/L 3.4-5.0 N CHLORIDE (test code = CL) 110 mEq/L 100-108 H CARBON DIOXIDE (test code = CO2) 23 mEq/l 21-33 N ANION GAP (test code = GAP) 11 0-20 N GLUCOSE (test code = GLU) 184 mg/dL 77-141 H BLOOD UREA NITROGEN (test code = BUN) 9 mg/dL 7-25 N GLOMERULAR FILTRATION RATE (test code = GFR) 85.6 80-90 N The Glomerular Filtration Rate is a calculated parameterbased on serum Creatinine, patient age and sex. GFR valuesless than 60 mL/min/1.73 square meters are indicative ofChronic Kidney Disease. Values less than 15 mL/min/1.73square meters indicate Kidney failure. The calculation forGFR is based on the CKD-EPI (2020) calculation. This formulais race indifferent and is the recommended formula for GFRby the National Kidney Foundation for Adults.The GFR will not calculate if the sex is unknown or if thepatient's age is <18 years. CREATININE (test code = CREAT) 1.0 mg/dL 0.6-1.3 N CALCIUM (test code = CA) 8.5 mg/dL 8.0-10.5 N [id number] 05:57:00* Test Item Value Reference Range Interpretation Comme nts AMMONIA (test code = AMM) 114 umol/L 11-35 H CBC W/AUTO [id number] 05:40:00* Test Item Value Reference Range Interpretation Comme nts WHITE BLOOD CELL (test code = WBC) 5.2 x10 3/uL 4.5-11.0 RED BLOOD CELL (test code = RBC) 3.68 x10 6/uL 4.00-5.60 L HEMOGLOBIN (test code = HGB) 9.5 g/dL 12.5-16.9 L HEMATOCRIT (test code = HCT) 29.6 % 37.5-50.7 L MEAN CELL VOLUME (test code = MCV) 80.4 fL 81.0-99.0 L MEAN CELL HGB (test code = MCH) 25.8 pg 27.0-33.0 L MEAN CELL HGB CONCETRATION (test code = MCHC) 32.1 g/dL 33.0-37.0 L RED CELL DISTRIBUTION WIDTH CV (test code = RDW) 19.0 % 11.5-14.5 H RED CELL DISTRIBUTION WIDTH SD (test code = RDW-SD) 55.1 fL 37.0-54.0 H PLATELET COUNT (test code = PLT) 76 x10 3/uL 150-400 L IMMATURE PLATELET FRACTION (test code = IPF) 4.2 % 0.9-11.2 N MEAN PLATELET VOLUME (test c ode = MPV) 11.1 fL 7.0-9.0 H NEUTROPHIL % (test code = NT%) 55.6 % 56.0-77.0 L IMMATURE GRANULOCYTE % (test code = IG%) 0.2 % 0.0-2.0 N LYMPHOCYTE % (test code = LY%) 25.0 % 14.0-32.0 N MONOCYTE % (test code = MO%) 18.4 % 4.8-9.0 H EOSINOPHIL % (test code = EO%) 0.4 % 0.3-3.7 N BASOPHIL % (test code = BA%) 0.4 % 0.0-2.0 N NUCLEATED RBC % (test code = NRBC%) 0.0 % 0-0 N NEUTROPHIL # (test code = NT#) 2.87 x10 3/uL 2.0-7.6 N IMMATURE GRANULOCYTE # (test code = IG#) 0.01 x10 3/uL 0.00-0.03 N LYMPHOCYTE # (test code = LY#) 1.29 x10 3/uL 1.0-3.8 N MONOCYTE # (test code = MO#) 0.95 x10 3/uL 0.1-0.8 H EOSINOPHIL # (test code = EO#) 0.02 x10 3/uL 0.0-0.2 N BASOPHIL # (test code = BA#) 0.02 x10 3/uL 0.0-0.2 N NUCLEATED RBC # (test code = NRBC#) 0.00 x10 3/uL 0.0-0.1 N GLUCOSE [id number] 21:05:00* Test Item Value Reference Range Interpretation Comme nts GLUCOSE BEDSIDE (test code = GLUBED) 253 MG/DL 70-110 H Performed by cer tified neck band operator at [facility] GLUCOSE [id number] 17:55:00* Test Item Value Reference Range Interpretation Comme nts GLUCOSE BEDSIDE (test code = GLUBED) 147 MG/DL 70-110 H Performed by cer tified neck band operator at [facility] GLUCOSE [id number] 17:32:00* Test Item Value Reference Range Interpretation Comme nts GLUCOSE BEDSIDE (test code = GLUBED) 221 MG/DL 70-110 H Performed by cer tified neck band operator at [facility] CBC W/AUTO [id number] 11:09:00* Test Item Value Reference Range Interpretation Comme nts WHITE BLOOD CELL (test code = WBC) 1.8 x10 3/uL 4.5-11.0 L RED BLOOD CELL (test code = RBC) 4.17 x10 6/uL 4.00-5.60 N HEMOGLOBIN (test code = HGB) 10.7 g/dL 12.5-16.9 L HEMATOCRIT (test code = HCT) 33.4 % 37.5-50.7 L MEAN CELL VOLUME (test code = MCV) 80.1 fL 81.0-99.0 L MEAN CELL HGB (test code = MCH) 25.7 pg 27.0-33.0 L MEAN CELL HGB CONCETRATION (test code = MCHC) 32.0 g/dL 33.0-37.0 L RED CELL DISTRIBUTION WIDTH CV (test code = RDW) 19.3 % 11.5-14.5 H RED CELL DISTRIBUTION WIDTH SD (test code = RDW-SD) 55.0 fL 37.0-54.0 H PLATELET COUNT (test code = PLT) 76 x10 3/uL 150-400 L MEAN PLATELET VOLUME (test c ode = MPV) 10.4 fL 7.0-9.0 H NEUTROPHIL % (test code = NT%) 56.4 % 56.0-77.0 N IMMATURE GRANULOCYTE % (test code = IG%) 0.0 % 0.0-2.0 N LYMPHOCYTE % (test code = LY%) 32.0 % 14.0-32.0 N MONOCYTE % (test code = MO%) 9.9 % 4.8-9.0 H EOSINOPHIL % (test code = EO%) 0.6 % 0.3-3.7 N BASOPHIL % (test code = BA%) 1.1 % 0.0-2.0 N NUCLEATED RBC % (test code = NRBC%) 0.0 % 0-0 N NEUTROPHIL # (test code = NT#) 1.02 x10 3/uL 2.0-7.6 L IMMATURE GRANULOCYTE # (test code = IG#) 0.00 x10 3/uL 0.00-0.03 N LYMPHOCYTE # (test code = LY#) 0.58 x10 3/uL 1.0-3.8 L MONOCYTE # (test code = MO#) 0.18 x10 3/uL 0.1-0.8 N EOSINOPHIL # (test code = EO#) 0.01 x10 3/uL 0.0-0.2 N BASOPHIL # (test code = BA#) 0.02 x10 3/uL 0.0-0.2 N NUCLEATED RBC # (test code = NRBC#) 0.00 x10 3/uL 0.0-0.1 N PLT [id number] 11:09:00* Test Item Value Reference Range Interpretation Comme [facility] PLATELET ESTIMATE (test code = PLTEST) 76-95 THOUSAND ADEQUATE [id number] 10:53:00* Test Item Value Reference Range Interpretation Comme nts ACT-ISTAT (test code = ACTI) 336 SEC 74-137 H Performed by cer tified neck band operator at [facility] GLUCOSE [id number] 10:13:00* Test Item Value Reference Range Interpretation Comme [facility] GLUCOSE BEDSIDE (test code = GLUBED) 140 MG/DL 70-110 H Performed by cer tified neck band operator at [facility] BASIC METABOLIC [id number] 05:51:00* Test Item Value Reference Range Interpretation Comme nts SODIUM (test code = NA) 145 mEq/L 134-147 N POTASSIUM (test code = K) 3.4 mEq/L 3.4-5.0 N CHLORIDE (test code = CL) 110 mEq/L 100-108 H CARBON DIOXIDE (test code = CO2) 28 mEq/l 21-33 N ANION GAP (test code = GAP) 11 0-20 N GLUCOSE (test code = GLU) 134 mg/dL 77-141 N BLOOD UREA NITROGEN (test code = BUN) 12 mg/dL 7-25 N GLOMERULAR FILTRATION RATE (test code = GFR) 76.4 80-90 L The Glomerular Filtration Rate is a calculated parameterbased on serum Creatinine, patient age and sex. GFR valuesless than 60 mL/min/1.73 square meters are indicative ofChronic Kidney Disease. Values less than 15 mL/min/1.73square meters indicate Kidney failure. The calculation forGFR is based on the CKD-EPI (2020) calculation. This formulais race indifferent and is the recommended formula for GFRby the National Kidney Foundation for Adults.The GFR will not calculate if the sex is unknown or if thepatient's age is <18 years. CREATININE (test code = CREAT) 1.1 mg/dL 0.6-1.3 N CALCIUM (test code = CA) 9.4 mg/dL 8.0-10.5 N GLUCOSE [id number] 18:22:00* Test Item Value Reference Range Interpretation Comme nts GLUCOSE BEDSIDE (test code = GLUBED) 185 MG/DL 70-110 H Performed by cer [employer] neck band operator at [facility] GLUCOSE [id number] 12:36:00* Test Item Value Reference Range Interpretation Comme nts GLUCOSE BEDSIDE (test code = GLUBED) 188 MG/DL 70-110 H Performed by [employer] neck band operator at [facility] GLUCOSE [id number] 11:32:00* Test Item Value Reference Range Interpretation Comme nts GLUCOSE BEDSIDE (test code = GLUBED) 194 MG/DL 70-110 H Performed by [employer] neck band operator at [facility] GLUCOSE [id number] 07:40:00* Test Item Value Reference Range Interpretation Comme nts GLUCOSE BEDSIDE (test code = GLUBED) 106 MG/DL 70-110 N Performed by [employer] neck band operator at [facility] GLUCOSE [id number] 21:47:00* Test Item Value Reference Range Interpretation Comme nts GLUCOSE BEDSIDE (test code = GLUBED) 146 MG/DL 70-110 H Performed by [employer] neck band operator at [facility] GLUCOSE [id number] 19:46:00* Test Item Value Reference Range Interpretation Comme nts GLUCOSE BEDSIDE (test code = GLUBED) 98 MG/DL 70-110 N Performed by [employer] neck band operator at [facility] GLUCOSE [id number] 16:42:00* Test Item Value Reference Range Interpretation Comme nts GLUCOSE BEDSIDE (test code = GLUBED) 105 MG/DL 70-110 N Performed by cer tified neck band operator at [facility] GLUCOSE [id number] 11:07:00* Test Item Value Reference Range Interpretation Comme nts GLUCOSE BEDSIDE (test code = GLUBED) 215 MG/DL 70-110 H Performed by cer tified neck band operator at [facility] GLUCOSE [id number] 09:28:00* Test Item Value Reference Range Interpretation Comme nts GLUCOSE BEDSIDE (test code = GLUBED) 148 MG/DL 70-110 H Performed by cer tified neck band operator at [facility] GLUCOSE [id number] 20:02:00* Test Item Value Reference Range Interpretation Comme nts GLUCOSE BEDSIDE (test code = GLUBED) 139 MG/DL 70-110 H Performed by cer tified neck band operator at [facility] GLUCOSE [id number] 17:01:00* Test Item Value Reference Range Interpretation Comme nts GLUCOSE BEDSIDE (test code = GLUBED) 152 MG/DL 70-110 H Performed by cer tified neck band operator at [facility] GLUCOSE [id number] 12:13:00* Test Item Value Reference Range Interpretation Comme nts GLUCOSE BEDSIDE (test code = GLUBED) 128 MG/DL 70-110 H Performed by cer tified neck band operator at [facility] GLUCOSE [id number] 08:18:00* Test Item Value Reference Range Interpretation Comme nts GLUCOSE BEDSIDE (test code = GLUBED) 159 MG/DL 70-110 H Performed by cer tified neck band operator at [facility] GLUCOSE [id number] 20:15:00* Test Item Value Reference Range Interpretation Comme nts GLUCOSE BEDSIDE (test code = GLUBED) 156 MG/DL 70-110 H Performed by cer tified neck band operator at [facility] GLUCOSE [id number] 11:08:00* Test Item Value Reference Range Interpretation Comme nts GLUCOSE BEDSIDE (test code = GLUBED) 162 MG/DL 70-110 H Performed by cer tified neck band operator at [facility] GLUCOSE [id number] 07:55:00* Test Item Value Reference Range Interpretation Comme nts GLUCOSE BEDSIDE (test code = GLUBED) 141 MG/DL 70-110 H Performed by cer ronit neck band operator at [facility] CBC W/AUTO [id number] 06:40:00* Test Item Value Reference Range Interpretation Comme nts WHITE BLOOD CELL (test code = WBC) 4.7 x10 3/uL 4.5-11.0 N RED BLOOD CELL (test code = RBC) 4.03 x10 6/uL 4.00-5.60 N HEMOGLOBIN (test code = HGB) 10.4 g/dL 12.5-16.9 L HEMATOCRIT (test code = HCT) 32.2 % 37.5-50.7 L MEAN CELL VOLUME (test code = MCV) 79.9 fL 81.0-99.0 L MEAN CELL HGB (test code = MCH) 25.8 pg 27.0-33.0 L MEAN CELL HGB CONCETRATION (test code = MCHC) 32.3 g/dL 33.0-37.0 L RED CELL DISTRIBUTION WIDTH CV (test code = RDW) 19.2 % 11.5-14.5 H RED CELL DISTRIBUTION WIDTH SD (test code = RDW-SD) 54.6 fL 37.0-54.0 H PLATELET COUNT (test code = PLT) 102 x10 3/uL 150-400 L MEAN PLATELET VOLUME (test c ode = MPV) 10.8 fL 7.0-9.0 H NEUTROPHIL % (test code = NT%) 41.1 % 56.0-77.0 L IMMATURE GRANULOCYTE % (test code = IG%) 0.2 % 0.0-2.0 N LYMPHOCYTE % (test code = LY%) 40.6 % 14.0-32.0 H MONOCYTE % (test code = MO%) 14.2 % 4.8-9.0 H EOSINOPHIL % (test code = EO%) 2.8 % 0.3-3.7 N BASOPHIL % (test code = BA%) 1.1 % 0.0-2.0 N NUCLEATED RBC % (test code = NRBC%) 0.0 % 0-0 N NEUTROPHIL # (test code = NT#) 1.94 x10 3/uL 2.0-7.6 L IMMATURE GRANULOCYTE # (test code = IG#) 0.01 x10 3/uL 0.00-0.03 N LYMPHOCYTE # (test code = LY#) 1.91 x10 3/uL 1.0-3.8 N MONOCYTE # (test code = MO#) 0.67 x10 3/uL 0.1-0.8 N EOSINOPHIL # (test code = EO#) 0.13 x10 3/uL 0.0-0.2 N BASOPHIL # (test code = BA#) 0.05 x10 3/uL 0.0-0.2 N NUCLEATED RBC # (test code = NRBC#) 0.00 x10 3/uL 0.0-0.1 N COMPREHENSIVE METABOLIC [id number] 06:08:00* Test Item Value Reference Range Interpretation Comme nts SODIUM (test code = NA) 143 mEq/L 134-147 N POTASSIUM (test code = K) 3.7 mEq/L 3.4-5.0 N CHLORIDE (test code = CL) 110 mEq/L 100-108 H CARBON DIOXIDE (test code = CO2) 26 mEq/l 21-33 N ANION GAP (test code = GAP) 10 0-20 N GLUCOSE (test code = GLU) 130 mg/dL 77-141 N BLOOD UREA NITROGEN (test code = BUN) 11 mg/dL 7-25 N GLOMERULAR FILTRATION RATE (test code = GFR) 85.6 80-90 N The Glomerular Filtration Rate is a calculated parameterbased on serum Creatinine, patient age and sex. GFR valuesless than 60 mL/min/1.73 square meters are indicative ofChronic Kidney Disease. Values less than 15 mL/min/1.73square meters indicate Kidney failure. The calculation forGFR is based on the CKD-EPI (202) calculation. This formulais race indifferent and is the recommended formula for GFRby the National Kidney Foundation for Adults.The GFR will not calculate if the sex is unknown or if thepatient's age is <18 years. CREATININE (test code = CREAT) 1.0 mg/dL 0.6-1.3 N TOTAL PROTEIN (test code = PROT) 6.8 g/dL 6.4-8.2 N ALBUMIN (test code = ALB) 3.00 g/dL 3.4-5.0 L CALCIUM (test code = CA) 9.2 mg/dL 8.0-10.5 N BILIRUBIN TOTAL (test code = BILT) 0.90 mg/dL 0.0-1.0 N SGOT/AST (test code = AST) 61 IUnit/L 8-34 H SGPT/ALT (test code = ALT) 75 IUnit/L 10-49 H ALKALINE PHOSPHATASE TOTAL (test code = ALKP) 105 IUnit/L 20-125 N GLUCOSE [id number] 20:34:00* Test Item Value Reference Range Interpretation Comme nts GLUCOSE BEDSIDE (test code = GLUBED) 222 MG/DL 70-110 H Performed by cer tified neck band operator at [facility] GLUCOSE [id number] 17:18:00* Test Item Value Reference Range Interpretation Comme nts GLUCOSE BEDSIDE (test code = GLUBED) 133 MG/DL 70-110 H Performed by cer tified neck band operator at [facility] GLUCOSE [id number] 12:11:00* Test Item Value Reference Range Interpretation Comme nts GLUCOSE BEDSIDE (test code = GLUBED) 230 MG/DL 70-110 H Performed by cer tified neck band operator at [facility] GLUCOSE [id number] 07:39:00* Test Item Value Reference Range Interpretation Comme nts GLUCOSE BEDSIDE (test code = GLUBED) 146 MG/DL 70-110 H Performed by cer tified neck band operator at [facility] COMPREHENSIVE METABOLIC [id number] 06:01:00* Test Item Value Reference Range Interpretation Comme nts SODIUM (test code = NA) 143 mEq/L 134-147 N POTASSIUM (test code = K) 3.7 mEq/L 3.4-5.0 N CHLORIDE (test code = CL) 111 mEq/L 100-108 H CARBON DIOXIDE (test code = CO2) 28 mEq/l 21-33 N ANION GAP (test code = GAP) 8 0-20 N GLUCOSE (test code = GLU) 127 mg/dL 77-141 N BLOOD UREA NITROGEN (test code = BUN) 10 mg/dL 7-25 N GLOMERULAR FILTRATION RATE (test code = GFR) 85.6 80-90 N The Glomerular Filtration Rate is a calculated parameterbased on serum Creatinine, patient age and sex. GFR valuesless than 60 mL/min/1.73 square meters are indicative ofChronic Kidney Disease. Values less than 15 mL/min/1.73square meters indicate Kidney failure. The calculation forGFR is based on the CKD-EPI (202) calculation. This formulais race indifferent and is the recommended formula for GFRby the National Kidney Foundation for Adults.The GFR will not calculate if the sex is unknown or if thepatient's age is <18 years. CREATININE (test code = CREAT) 1.0 mg/dL 0.6-1.3 N TOTAL PROTEIN (test code = PROT) 7.2 g/dL 6.4-8.2 N ALBUMIN (test code = ALB) 3.10 g/dL 3.4-5.0 L CALCIUM (test code = CA) 9.2 mg/dL 8.0-10.5 N BILIRUBIN TOTAL (test code = BILT) 0.90 mg/dL 0.0-1.0 N SGOT/AST (test code = AST) 73 IUnit/L 8-34 H SGPT/ALT (test code = ALT) 84 IUnit/L 10-49 H ALKALINE PHOSPHATASE TOTAL (test code = ALKP) 105 IUnit/L 20-125 N [id number] 06:01:00* Test Item Value Reference Range Interpretation Comme nts PHOSPHOROUS (test code = PHOS) 3.6 MG/DL 2.5-4.9 N CBC W/AUTO [id number] 05:27:00* Test Item Value Reference Range Interpretation Comme nts WHITE BLOOD CELL (test code = WBC) 4.7 x10 3/uL 4.5-11.0 N RED BLOOD CELL (test code = RBC) 4.24 x10 6/uL 4.00-5.60 N HEMOGLOBIN (test code = HGB) 10.7 g/dL 12.5-16.9 L HEMATOCRIT (test code = HCT) 33.9 % 37.5-50.7 L MEAN CELL VOLUME (test code = MCV) 80.0 fL 81.0-99.0 L MEAN CELL HGB (test code = MCH) 25.2 pg 27.0-33.0 L MEAN CELL HGB CONCETRATION (test code = MCHC) 31.6 g/dL 33.0-37.0 L RED CELL DISTRIBUTION WIDTH CV (test code = RDW) 19.0 % 11.5-14.5 H RED CELL DISTRIBUTION WIDTH SD (test code = RDW-SD) 54.0 fL 37.0-54.0 N PLATELET COUNT (test code = PLT) 110 x10 3/uL 150-400 L MEAN PLATELET VOLUME (test c ode = MPV) 10.7 fL 7.0-9.0 H NEUTROPHIL % (test code = NT%) 52.4 % 56.0-77.0 L IMMATURE GRANULOCYTE % (test code = IG%) 0.0 % 0.0-2.0 N LYMPHOCYTE % (test code = LY%) 33.1 % 14.0-32.0 H MONOCYTE % (test code = MO%) 11.5 % 4.8-9.0 H EOSINOPHIL % (test code = EO%) 1.9 % 0.3-3.7 N BASOPHIL % (test code = BA%) 1.1 % 0.0-2.0 N NUCLEATED RBC % (test code = NRBC%) 0.0 % 0-0 N NEUTROPHIL # (test code = NT#) 2.45 x10 3/uL 2.0-7.6 N IMMATURE GRANULOCYTE # (test code = IG#) 0.00 x10 3/uL 0.00-0.03 N LYMPHOCYTE # (test code = LY#) 1.55 x10 3/uL 1.0-3.8 N MONOCYTE # (test code = MO#) 0.54 x10 3/uL 0.1-0.8 N EOSINOPHIL # (test code = EO#) 0.09 x10 3/uL 0.0-0.2 N BASOPHIL # (test code = BA#) 0.05 x10 3/uL 0.0-0.2 N NUCLEATED RBC # (test code = NRBC#) 0.00 x10 3/uL 0.0-0.1 N [id number] 05:20:00* Test Item Value Reference Range Interpretation Comme nts AMMONIA (test code = AMM) 99 umol/L 11-35 H GLUCOSE [id number] 20:04:00* Test Item Value Reference Range Interpretation Comme nts GLUCOSE BEDSIDE (test code = GLUBED) 132 MG/DL 70-110 H Performed by cer tified neck band operator at [facility] GLUCOSE [id number] 16:38:00* Test Item Value Reference Range Interpretation Comme nts GLUCOSE BEDSIDE (test code = GLUBED) 164 MG/DL 70-110 H Performed by cer tified neck band operator at [facility] GLUCOSE [id number] 11:53:00* Test Item Value Reference Range Interpretation Comme nts GLUCOSE BEDSIDE (test code = GLUBED) 180 MG/DL 70-110 H Performed by cer tified neck band operator at [facility] GLUCOSE [id number] 08:48:00* Test Item Value Reference Range Interpretation Comme nts GLUCOSE BEDSIDE (test code = GLUBED) 171 MG/DL 70-110 H Performed by cer tified neck band operator at [facility] CBC W/AUTO [id number] 07:26:00* Test Item Value Reference Range Interpretation Comme nts WHITE BLOOD CELL (test code = WBC) 3.4 x10 3/uL 4.5-11.0 L RED BLOOD CELL (test code = RBC) 3.98 x10 6/uL 4.00-5.60 L HEMOGLOBIN (test code = HGB) 10.1 g/dL 12.5-16.9 L HEMATOCRIT (test code = HCT) 32.0 % 37.5-50.7 L MEAN CELL VOLUME (test code = MCV) 80.4 fL 81.0-99.0 L MEAN CELL HGB (test code = MCH) 25.4 pg 27.0-33.0 L MEAN CELL HGB CONCETRATION (test code = MCHC) 31.6 g/dL 33.0-37.0 L RED CELL DISTRIBUTION WIDTH CV (test code = RDW) 19.0 % 11.5-14.5 H RED CELL DISTRIBUTION WIDTH SD (test code = RDW-SD) 54.5 fL 37.0-54.0 H PLATELET COUNT (test code = PLT) 92 x10 3/uL 150-400 L IMMATURE PLATELET FRACTION (test code = IPF) 3.2 % 0.9-11.2 N MEAN PLATELET VOLUME (test c ode = MPV) 11.0 fL 7.0-9.0 H NEUTROPHIL % (test code = NT%) 45.2 % 56.0-77.0 L IMMATURE GRANULOCYTE % (test code = IG%) 0.0 % 0.0-2.0 N LYMPHOCYTE % (test code = LY%) 38.7 % 14.0-32.0 H MONOCYTE % (test code = MO%) 12.3 % 4.8-9.0 H EOSINOPHIL % (test code = EO%) 2.6 % 0.3-3.7 N BASOPHIL % (test code = BA%) 1.2 % 0.0-2.0 N NUCLEATED RBC % (test code = NRBC%) 0.0 % 0-0 N NEUTROPHIL # (test code = NT#) 1.54 x10 3/uL 2.0-7.6 L IMMATURE GRANULOCYTE # (test code = IG#) 0.00 x10 3/uL 0.00-0.03 N LYMPHOCYTE # (test code = LY#) 1.32 x10 3/uL 1.0-3.8 N MONOCYTE # (test code = MO#) 0.42 x10 3/uL 0.1-0.8 N EOSINOPHIL # (test code = EO#) 0.09 x10 3/uL 0.0-0.2 N BASOPHIL # (test code = BA#) 0.04 x10 3/uL 0.0-0.2 N NUCLEATED RBC # (test code = NRBC#) 0.00 x10 3/uL 0.0-0.1 N PLT [id number] 07:26:00* Test Item Value Reference Range Interpretation Comme nts PLATELET ESTIMATE (test code = PLTEST) 92-115 THOUSAND ADEQUATE COMPREHENSIVE METABOLIC [id number] 07:20:00* Test Item Value Reference Range Interpretation Comme nts SODIUM (test code = NA) 143 mEq/L 134-147 N POTASSIUM (test code = K) 3.6 mEq/L 3.4-5.0 N CHLORIDE (test code = CL) 111 mEq/L 100-108 H CARBON DIOXIDE (test code = CO2) 25 mEq/l 21-33 N ANION GAP (test code = GAP) 11 0-20 N GLUCOSE (test code = GLU) 146 mg/dL 77-141 H BLOOD UREA NITROGEN (test code = BUN) 10 mg/dL 7-25 N GLOMERULAR FILTRATION RATE (test code = GFR) 97.2 80-90 H The Glomerular Filtration Rate is a calculated parameterbased on serum Creatinine, patient age and sex. GFR valuesless than 60 mL/min/1.73 square meters are indicative ofChronic Kidney Disease. Values less than 15 mL/min/1.73square meters indicate Kidney failure. The calculation forGFR is based on the CKD-EPI (202) calculation. This formulais race indifferent and is the recommended formula for GFRby the National Kidney Foundation for Adults.The GFR will not calculate if the sex is unknown or if thepatient's age is <18 years. CREATININE (test code = CREAT) 0.9 mg/dL 0.6-1.3 N TOTAL PROTEIN (test code = PROT) 6.8 g/dL 6.4-8.2 N ALBUMIN (test code = ALB) 3.10 g/dL 3.4-5.0 L CALCIUM (test code = CA) 9.2 mg/dL 8.0-10.5 N BILIRUBIN TOTAL (test code = BILT) 0.70 mg/dL 0.0-1.0 N SGOT/AST (test code = AST) 66 IUnit/L 8-34 H SGPT/ALT (test code = ALT) 76 IUnit/L 10-49 H ALKALINE PHOSPHATASE TOTAL (test code = ALKP) 97 IUnit/L 20-125 N [id number] 06:38:00* Test Item Value Reference Range Interpretation Comme nts AMMONIA (test code = AMM) 135 umol/L 11-35 H GLUCOSE [id number] 20:27:00* Test Item Value Reference Range Interpretation Comme nts GLUCOSE BEDSIDE (test code = GLUBED) 166 MG/DL 70-110 H Performed by cer tified neck band operator at [facility] GLUCOSE [id number] 19:08:00* Test Item Value Reference Range Interpretation Comme nts GLUCOSE BEDSIDE (test code = GLUBED) 112 MG/DL 70-110 H Performed by cer tified neck band operator at [facility] GLUCOSE [id number] 12:03:00* Test Item Value Reference Range Interpretation Comme nts GLUCOSE BEDSIDE (test code = GLUBED) 190 MG/DL 70-110 H Performed by cer tified neck band operator at [facility] GLUCOSE [id number] 08:11:00* Test Item Value Reference Range Interpretation Comme nts GLUCOSE BEDSIDE (test code = GLUBED) 267 MG/DL 70-110 H Performed by cer tified neck band operator at [facility] [id number] 02:09:00* Test Item Value Reference Range Interpretation Comme nts AMMONIA (test code = AMM) 219 umol/L 11-35 H LIPID PROFILE (CORONARY RISK)[id number] 02:09:00* Test Item Value Reference Range Interpretation Comme nts TRIGLYCERIDES (test code = TRIG) 29 mg/dL 40-150 L CHOLESTEROL (test code = CHOL) 109 mg/dL <200 CHOLESTEROL/HDL RATIO (test code = CHOLHDL) 2.58 RATIO 3.43-4.97 L RISK ASSOCIATED WITH CHOL/HDL RATIOS: RISK MALE FEMALE1/2 AVERAGE 3.43 3.27AVERAGE 4.97 4.442X AVERAGE 9.55 7.053X AVERAGE 23.39 11.04 NOTE THAT THE REFERENCE VALUE IS RELATEDTO RISK LEVELS RECOMMENDED BY THE NATL.HEART, LUNG, AND BLOOD INST. HDL CHOLESTEROL (test code = HDL) 42.3 MG/DL 40-60 N HDL Interpreta tion < 40.0 mg/dL Low (undesirable, high risk)> 60.0 mg/dL High (desirable, low risk) Reference interval for healthy adults was established by theNational Cholesterol Education Program (NCEP). LIPOPROTEIN LDL (test code = LDL) 48.0 mg/dL 0-100 N <100 [id number] 0-129 NEAR OPTIMAL/ABOVE [id number] HIGH>ZL=684 VERY HIGH*Guidelines provided by the National Cholesterol EducationProgram Adult Treatment Panel III TSH REFLEX TO [id number] 02:09:00* Test Item Value Reference Range Interpretation Comme nts TSH REFLEX TO FT4 (test code = TSHREFLEX) 1.05 IU/mL 0.42-5.47 N VITAMIN [id number] 02:09:00* Test Item Value Reference Range Interpretation Comme nts VITAMIN B12 (test code = VITB12) 986 pg/mL 193-986 N GLUCOSE [id number] 19:54:00* Test Item Value Reference Range Interpretation Comme nts GLUCOSE BEDSIDE (test code = GLUBED) 101 MG/DL 70-110 N Performed by cer tified neck band operator at [facility] GLUCOSE [id number] 17:15:00* Test Item Value Reference Range Interpretation Comme nts GLUCOSE BEDSIDE (test code = GLUBED) 87 MG/DL 70-110 N Performed by cer tified neck band operator at [facility] GLUCOSE [id number] 12:15:00* Test Item Value Reference Range Interpretation Comme nts GLUCOSE BEDSIDE (test code = GLUBED) 256 MG/DL 70-110 H Performed by cer tified neck band operator at [facility] [id number] 09:52:00* Test Item Value Reference Range Interpretation Comme nts AMMONIA (test code = AMM) 186 umol/L 11-35 H GLUCOSE [id number] 08:08:00* Test Item Value Reference Range Interpretation Comme nts GLUCOSE BEDSIDE (test code = GLUBED) 168 MG/DL 70-110 H Performed by cer tified neck band operator at [facility] GLUCOSE [id number] 19:44:00* Test Item Value Reference Range Interpretation Comme nts GLUCOSE BEDSIDE (test code = GLUBED) 220 MG/DL 70-110 H Performed by cer tified neck band operator at [facility] GLUCOSE [id number] 17:54:00* Test Item Value Reference Range Interpretation Comme nts GLUCOSE BEDSIDE (test code = GLUBED) 96 MG/DL 70-110 N Performed by cer tified neck band operator at [facility] GLUCOSE [id number] 10:47:00* Test Item Value Reference Range Interpretation Comme nts GLUCOSE BEDSIDE (test code = GLUBED) 182 MG/DL 70-110 H Performed by cer tified neck band operator at [facility] GLUCOSE [id number] 07:54:00* Test Item Value Reference Range Interpretation Comme nts GLUCOSE BEDSIDE (test code = GLUBED) 257 MG/DL 70-110 H Performed by cer tified neck band operator at [facility] GLUCOSE [id number] 20:45:00* Test Item Value Reference Range Interpretation Comme nts GLUCOSE BEDSIDE (test code = GLUBED) 232 MG/DL 70-110 H Performed by cer tified neck band operator at [facility] GLUCOSE [id number] 16:06:00* Test Item Value Reference Range Interpretation Comme nts GLUCOSE BEDSIDE (test code = GLUBED) 138 MG/DL 70-110 H Performed by cer tified neck band operator at [facility] GLUCOSE [id number] 11:06:00* Test Item Value Reference Range Interpretation Comme nts GLUCOSE BEDSIDE (test code = GLUBED) 230 MG/DL 70-110 H Performed by cer tified neck band operator at [facility] GLUCOSE [id number] 07:32:00* Test Item Value Reference Range Interpretation Comme nts GLUCOSE BEDSIDE (test code = GLUBED) 167 MG/DL 70-110 H Performed by cer tified neck band operator at [facility] GLUCOSE [id number] 19:39:00* Test Item Value Reference Range Interpretation Comme nts GLUCOSE BEDSIDE (test code = GLUBED) 250 MG/DL 70-110 H Performed by cer tified neck band operator at [facility] [id number] 17:20:00* Test Item Value Reference Range Interpretation Comme nts AMMONIA (test code = AMM) 151 umol/L 11-35 H GLUCOSE [id number] 16:38:00* Test Item Value Reference Range Interpretation Comme nts GLUCOSE BEDSIDE (test code = GLUBED) 132 MG/DL 70-110 H Performed by cer tified neck band operator at [facility] [id number] 16:20:00* Test Item Value Reference Range Interpretation Comme nts HGBA1C% (test code = HGBA1C%) 7.8 %A1C 4.8-6.0 H GLUCOSE [id number] 11:03:00* Test Item Value Reference Range Interpretation Comme nts GLUCOSE BEDSIDE (test code = GLUBED) 306 MG/DL 70-110 H Performed by cer tified neck band operator at [facility] CBC W/AUTO [id number] 08:37:00* Test Item Value Reference Range Interpretation Comme nts WHITE BLOOD CELL (test code = WBC) 3.7 x10 3/uL 4.5-11.0 L RED BLOOD CELL (test code = RBC) 4.22 x10 6/uL 4.00-5.60 N HEMOGLOBIN (test code = HGB) 10.9 g/dL 12.5-16.9 L HEMATOCRIT (test code = HCT) 33.7 % 37.5-50.7 L MEAN CELL VOLUME (test code = MCV) 79.9 fL 81.0-99.0 L MEAN CELL HGB (test code = MCH) 25.8 pg 27.0-33.0 L MEAN CELL HGB CONCETRATION (test code = MCHC) 32.3 g/dL 33.0-37.0 L RED CELL DISTRIBUTION WIDTH CV (test code = RDW) 18.9 % 11.5-14.5 H RED CELL DISTRIBUTION WIDTH SD (test code = RDW-SD) 52.6 fL 37.0-54.0 N PLATELET COUNT (test code = PLT) 119 x10 3/uL 150-400 L MEAN PLATELET VOLUME (test c ode = MPV) 10.7 fL 7.0-9.0 H NEUTROPHIL % (test code = NT%) 48.3 % 56.0-77.0 L IMMATURE GRANULOCYTE % (test code = IG%) 0.0 % 0.0-2.0 N LYMPHOCYTE % (test code = LY%) 36.8 % 14.0-32.0 H MONOCYTE % (test code = MO%) 11.6 % 4.8-9.0 H EOSINOPHIL % (test code = EO%) 1.9 % 0.3-3.7 N BASOPHIL % (test code = BA%) 1.4 % 0.0-2.0 N NUCLEATED RBC % (test code = NRBC%) 0.0 % 0-0 N NEUTROPHIL # (test code = NT#) 1.79 x10 3/uL 2.0-7.6 L IMMATURE GRANULOCYTE # (test code = IG#) 0.00 x10 3/uL 0.00-0.03 N LYMPHOCYTE # (test code = LY#) 1.36 x10 3/uL 1.0-3.8 N MONOCYTE # (test code = MO#) 0.43 x10 3/uL 0.1-0.8 N EOSINOPHIL # (test code = EO#) 0.07 x10 3/uL 0.0-0.2 N BASOPHIL # (test code = BA#) 0.05 x10 3/uL 0.0-0.2 N NUCLEATED RBC # (test code = NRBC#) 0.00 x10 3/uL 0.0-0.1 N GLUCOSE [id number] 07:46:00* Test Item Value Reference Range Interpretation Comme nts GLUCOSE BEDSIDE (test code = GLUBED) 248 MG/DL 70-110 H Performed by cer tified neck band operator at [facility] CBC W/AUTO [id number] 07:24:00* Test Item Value Reference Range Interpretation Comme nts WHITE BLOOD CELL (test code = WBC) TEST NOT PERFORMED x10 3/uL 4.5-11.0 L Amended report. Disregard previous result/results *Previously reported result: 4.3 x10\\S\\3/uLEdited by: [id number] on 04/04/24:11/07: WBC previously reported as: 4.3 L x10\\S\\3/uL RED BLOOD CELL (test code = RBC) TEST NOT PERFORMED x10 6/uL 4.00-5.60 N Previously reported result: 4.56 x10\\S\\6/uLEdited by: [id number] on 04/04/24:11/07: RBC previously reported as: 4.56 x10\\S\\6/uL HEMOGLOBIN (test code = HGB) TEST NOT PERFORMED g/dL 12.5-16.9 L Previously reported result: 11.6 g/dLEdited by: [id number] on 04/04/24:11/07: HGB previously reported as: 11.6 L g/dL HEMATOCRIT (test code = HCT) TEST NOT PERFORMED % 37.5-50.7 N Previously reported result: 37.6 %Edited by: [id number] on 04/04/24:11/07: HCT previously reported as: 37.6 % MEAN CELL VOLUME (test code = MCV) TEST NOT PERFORMED fL 81.0-99.0 N Previously reported result: 82.5 fLEdited by: [id number] on 04/04/24:11/07: MCV previously reported as: 82.5 fL MEAN CELL HGB (test code = MCH) TEST NOT PERFORMED pg 27.0-33.0 L Previously reported result: 25.4 pgEdited by: [id number] on 04/04/24:11/07: MCH previously reported as: 25.4 L pg MEAN CELL HGB CONCETRATION (test code = MCHC) TEST NOT PERFORMED g/dL 33.0-37.0 L Previously reported result: 30.9 g/dLEdited by: [id number] on 04/04/24:11/07: MCHC previously reported as: 30.9 L g/dL RED CELL DISTRIBUTION WIDTH CV (test code = RDW) TEST NOT PERFORMED % 11.5-14.5 H Previously reported result: 19.1 %Edited by: [id number] on 04/04/24:11/07: RDW-CV previously reported as: 19.1 H % RED CELL DISTRIBUTION WIDTH SD (test code = RDW-SD) TEST NOT PERFORMED fL 37.0-54.0 H Previously reported result: 54.6 fLEdited by: [id number] on 04/04/24:11/07: RDW-SD previously reported as: 54.6 H fL PLATELET COUNT (test code = PLT) TEST NOT PERFORMED x10 3/uL 150-400 L Previously reported result: 80 x10\\S\\3/uLEdited by: [id number] on 04/04/24:11/07: PLT previously reported as: 80 L x10\\S\\3/uL IMMATURE PLATELET FRACTION (test code = IPF) TEST NOT PERFORMED % 0.9-11.2 N Previously reported result: 4.2 %Edited by: [id number] on 04/04/24:11/07: IPF previously reported as: 4.2 % MEAN PLATELET VOLUME (test code = MPV) TEST NOT PERFORMED fL 7.0-9.0 H Previously reported result: 10.3 fLEdited by: [id number] on 04/04/24:11/07: MPV previously reported as: 10.3 H fL NEUTROPHIL % (test code = NT%) TEST NOT PERFORMED % 56.0-77.0 L Previously reported result: 47.3 %Edited by: [id number] on 04/04/24:11/07: NEUT % previously reported as: 47.3 L % IMMATURE GRANULOCYTE % (test code = IG%) TEST NOT PERFORMED % 0.0-2.0 N Previously reported result: 0.2 %Edited by: [id number] on 04/04/24:11/07: IMM GRAN % previously reported as: 0.2 % LYMPHOCYTE % (test code = LY%) TEST NOT PERFORMED % 14.0-32.0 H Previously reported result: 39.5 %Edited by: [id number] on 04/04/24:11/07: LYMPH % previously reported as: 39.5 H % MONOCYTE % (test code = MO%) TEST NOT PERFORMED % 4.8-9.0 H Previously reported result: 9.5 %Edited by: [id number] on 04/04/24:11/07: MONO % previously reported as: 9.5 H % EOSINOPHIL % (test code = EO%) TEST NOT PERFORMED % 0.3-3.7 N Previously reported result: 2.3 %Edited by: [id number] on 04/04/24:11/07: EOS % previously reported as: 2.3 % BASOPHIL % (test code = BA%) TEST NOT PERFORMED % 0.0-2.0 N Previously reported result: 1.2 %Edited by: [id number] on 04/04/24:11/07: BASO % previously reported as: 1.2 % NUCLEATED RBC % (test code = NRBC%) TEST NOT PERFORMED % 0-0 N Previously reported result: 0.0 %Edited by: [id number] on 04/04/24:11/07: NRBC% previously reported as: 0.0 % NEUTROPHIL # (test code = NT#) TEST NOT PERFORMED x10 3/uL 2.0-7.6 N Previously reported result: 2.05 x10\\S\\3/uLEdited by: [id number] on 04/04/24:11/07: NEUT # previously reported as: 2.05 x10\\S\\3/uL IMMATURE GRANULOCYTE # (test code = IG#) TEST NOT PERFORMED x10 3/uL 0.00-0.03 N Previously reported result: 0.01 x10\\S\\3/uLEdited by: [id number] on 04/04/24:11/07: IMM GRAM # previously reported as: 0.01 x10\\S\\3/uL LYMPHOCYTE # (test code = LY#) TEST NOT PERFORMED x10 3/uL 1.0-3.8 N Previously reported result: 1.71 x10\\S\\3/uLEdited by: [id number] on 04/04/24:11/07: LYMPH # previously reported as: 1.71 x10\\S\\3/uL MONOCYTE # (test code = MO#) TEST NOT PERFORMED x10 3/uL 0.1-0.8 N Previously reported result: 0.41 x10\\S\\3/uLEdited by: [id number] on 04/04/24:11/07: MONO # previously reported as: 0.41 x10\\S\\3/uL EOSINOPHIL # (test code = EO#) TEST NOT PERFORMED x10 3/uL 0.0-0.2 N Previously reported result: 0.10 x10\\S\\3/uLEdited by: [id number] on 04/04/24:11/07: EOS # previously reported as: 0.10 x10\\S\\3/uL BASOPHIL # (test code = BA#) TEST NOT PERFORMED x10 3/uL 0.0-0.2 N Previously reported result: 0.05 x10\\S\\3/uLEdited by: [id number] on 04/04/24:11/07: BASO # previously reported as: 0.05 x10\\S\\3/uL NUCLEATED RBC # (test code = NRBC#) TEST NOT PERFORMED x10 3/uL 0.0-0.1 N Previously reported result: 0.00 x10\\S\\3/uLEdited by: [id number] on 04/04/24:11/07: NRBC# previously reported as: 0.00 x10\\S\\3/uL CORRECTED WBC (test code = CWBC) TEST NOT PERFORMED K/mm3 4.0-10.0 BASIC METABOLIC [id number] 07:11:00* Test Item Value Reference Range Interpretation Comme nts SODIUM (test code = NA) 138 mEq/L 134-147 N POTASSIUM (test code = K) 4.0 mEq/L 3.4-5.0 N CHLORIDE (test code = CL) 111 mEq/L 100-108 H CARBON DIOXIDE (test code = CO2) 19 mEq/l 21-33 L ANION GAP (test code = GAP) 12 0-20 N GLUCOSE (test code = GLU) 199 mg/dL 77-141 H BLOOD UREA NITROGEN (test code = BUN) 5 mg/dL 7-25 L GLOMERULAR FILTRATION RATE (test code = GFR) 97.2 80-90 H The Glomerular Filtration Rate is a calculated parameterbased on serum Creatinine, patient age and sex. GFR valuesless than 60 mL/min/1.73 square meters are indicative ofChronic Kidney Disease. Values less than 15 mL/min/1.73square meters indicate Kidney failure. The calculation forGFR is based on the CKD-EPI (202) calculation. This formulais race indifferent and is the recommended formula for GFRby the National Kidney Foundation for Adults.The GFR will not calculate if the sex is unknown or if thepatient's age is <18 years. CREATININE (test code = CREAT) 0.9 mg/dL 0.6-1.3 N CALCIUM (test code = CA) 9.6 mg/dL 8.0-10.5 N [id number] 06:39:00* Test Item Value Reference Range Interpretation Comme nts AMMONIA (test code = AMM) 125 umol/L 11-35 H GLUCOSE [id number] 22:52:00* Test Item Value Reference Range Interpretation Comme nts GLUCOSE BEDSIDE (test code = GLUBED) 160 MG/DL 70-110 H Performed by cer tified neck band operator at [facility] GLUCOSE [id number] 15:47:00* Test Item Value Reference Range Interpretation Comme nts GLUCOSE BEDSIDE (test code = GLUBED) 148 MG/DL 70-110 H Performed by cer tified neck band operator at [facility] [id number] 11:41:00* Test Item Value Reference Range Interpretation Comme nts AMMONIA (test code = AMM) 133 umol/L 11-35 H UA RFLX MICR CULT IF [id number] 10:52:00* Test Item Value Reference Range Interpretation Comme nts UA COLOR (test code = COLU) YELLOW YEL/STRAW UA APPEARANCE (test code = APPU) CLEAR CLEAR UA GLUCOSE DIPSTICK (test co de = DGLUU) 3+ NEGATIVE A UA BILIRUBIN DIPSTICK (test code = BILU) NEGATIVE NEGATIVE UA KETONE DIPSTICK (test cod e = KETU) NEGATIVE NEGATIVE UA SPECIFIC GRAVITY (test co de = SGU) 1.029 1.005-1.030 N UA BLOOD DIPSTICK (test code = JOSEPHINE) NEGATIVE NEGATIVE UA PH DIPSTICK (test code = ANITA) 6.0 5.0-7.0 N UA PROTEIN DIPSTICK (test co de = PROU) NEGATIVE NEGATIVE UA UROBILINIOGEN DIPSTICK (test code = URO) 0.2 mg/dL 0.2-1.0 UA NITRITE DIPSTICK (test co de = BAILEE) NEGATIVE NEGATIVE UA LEUKOCYTE ESTERASE DIPSTI CK (test code = LEUU) NEGATIVE NEGATIVE UA WBC (test code = WBCU) 0-3 WBC/HPF 0-3 UA RBC (test code = RBCU) 0-3 RBC/HPF 0-3 UA WBC NO REFLEX (test code = WBCUCL) 0-3 WBC/HPF 0-3 UA BACTERIA (test code = BACU) NONE SEEN /HPF NONE SEEN UA SQUAMOUS CELLS (test code = SQU) NONE SEEN /HPF NONE SEEN Indication for culture: Suprapubic PainSpecimen Description: CLEAN CATCHBASIC METABOLIC [id number] 10:03:00* Test Item Value Reference Range Interpretation Comme nts SODIUM (test code = NA) 139 mEq/L 134-147 N POTASSIUM (test code = K) 4.1 mEq/L 3.4-5.0 N CHLORIDE (test code = CL) 108 mEq/L 100-108 N CARBON DIOXIDE (test code = CO2) 27 mEq/l 21-33 N ANION GAP (test code = GAP) 8 0-20 N GLUCOSE (test code = GLU) 388 mg/dL 77-141 H BLOOD UREA NITROGEN (test code = BUN) 10 mg/dL 7-25 N GLOMERULAR FILTRATION RATE (test code = GFR) 85.6 80-90 N The Glomerular Filtration Rate is a calculated parameterbased on serum Creatinine, patient age and sex. GFR valuesless than 60 mL/min/1.73 square meters are indicative ofChronic Kidney Disease. Values less than 15 mL/min/1.73square meters indicate Kidney failure. The calculation forGFR is based on the CKD-EPI (202) calculation. This formulais race indifferent and is the recommended formula for GFRby the National Kidney Foundation for Adults.The GFR will not calculate if the sex is unknown or if thepatient's age is <18 years. CREATININE (test code = CREAT) 1.0 mg/dL 0.6-1.3 N CALCIUM (test code = CA) 9.3 mg/dL 8.0-10.5 N HEPATIC FUNCTION [id number] 10:03:00* Test Item Value Reference Range Interpretation Comme nts TOTAL PROTEIN (test code = PROT) 7.3 g/dL 6.4-8.2 N ALBUMIN (test code = ALB) 3.30 g/dL 3.4-5.0 L BILIRUBIN TOTAL (test code = BILT) 0.80 mg/dL 0.0-1.0 N BILIRUBIN DIRECT (test code = BILD) 0.30 MG/DL 0.1-0.3 N SGOT/AST (test code = AST) 65 IUnit/L 8-34 H SGPT/ALT (test code = ALT) 85 IUnit/L 10-49 H ALKALINE PHOSPHATASE TOTAL ( test code = ALKP) 91 IUnit/L 20-125 N BILIRUBIN INDIRECT (test cod e = BILIND) 0.50 MG/DL TROP-I HIGH [id number] 10:03:00* Test Item Value Reference Range Interpretation Comme nts TROP-I HIGH SENSITIVITY (test code = TROPIHS) 3 ng/L 0-54 N CAUTION: Units o f the current test methodology (ng/L) differfrom the prior test methodology (ng/mL) by a factor of 1000. 99th Percentile Upper Reference Limit (URL): Females: 34 ng/LMales: 54 ng/L In order to distinguish acute elevations of high sensitivitytroponin from other clinical conditions, the FourthUniversal Definition of Myocardial Infarction stressesclinical assessment and the demonstration of a rise and/orfall in serial troponin results above the URL. These results were obtained using [employer] IM TnIHreagent. Results from different methodologies should not becompared to one another as quantitative results and URLs mayvary by method. LACTIC [id number] 10:03:00* Test Item Value Reference Range Interpretation Comme nts LACTIC ACID (test code = LACT) 1.7 mmol/L 0.4-1.9 N - CT HEAD/BRAIN W/O [id number] 10:03:00 [facility] 1960 Sex: M Name: KEYLA LITTLE [facility] : 1960 Age/S: 63 / M [address] [place] [address] Bl Unit #: [id number] Loc: [place] [address] Phys: Donn Gomez FLIGHT KITCHEN MANAGER AGACNP Acct: [id number] Dis Date: Status: REG ER PHONE #: [phone] Exam Date: 04/03/2024940 FAX #: [phone] Reason: Altered Mental Status EXAMS: CPT CODE: [id number] CT HEAD/BRAIN W/O CONT 07723 CT HEAD without contrast CLINICAL INDICATION: Altered mental status. COMPARISON: None. TECHNIQUE: HELICAL CT BRAIN AND MAXILLOFACIAL OBTAINED USING STANDARDIZED AND CLINICALLY ORIENTED PROTOCOL, INCLUDING AUTOMATIC EXPOSURE CONTROL FOR RADIATION DOSE REDUCTION. MULTIPLANAR REFORMATIONS WERE PERFORMED AT AN INDEPENDENT WORKSTATION UNDER SUPERVISION DOSE: Total DLP: 696 mGy-cm FINDINGS: BRAIN - There is ill-defined hypodensities centered in the subcortical white matter of the right frontal region/centrum semiovale, which extends into the periinsular region and associated with mild kaiser matter volume loss in the right middlefrontal gyrus. There is no acute intracranial hemorrhage visualized. No midline shift, hydrocephalus, or cerebral herniation is identified. No abnormalities in the basal ganglia, brainstem, or cerebellum are identified. The ventricular systems and basilar cisterns appear normal. Paranasal sinuses are clear. Intraorbital contents are unremarkable. No skull fractures are identified. Soft tissues are unremarkable. Impression: Ill-defined hypodensity involving the right frontal lobe, as described, which may represent age-indeterminate ischemic infarct involving the right MCA vascular territory. However, mass lesion with vasogenic edema cannot be excluded. Recommend MRI of the brain with and without contrast further evaluate. No evidence of acute intracranial hemorrhage. PAGE 1 Signed Report (CONTINUED) Name: KEYLA LITTLE [facility] : 1960 Age/S: 63 / M [address] [place] [address] Unit #: [id number] Loc: [place] [address] Phys: Donn Gomez Acct: [id number] Dis Date: Status: REG ER PHONE #: [phone] Exam Date: 04/03/2024 09 FAX #: [phone] Reason: Altered Mental Status EXAMS: CPT CODE: [id number] CT HEAD/BRAIN W/O CONT 94768 (Continued) at 1003 Reported and signed by: Mayur Diaz D.O. CC: Donn Gomez Technologist:Hiram Eastman, RT(R); Campbell Cespedes CTDI: DLP: Trnscb Date/Time: 04/03/2024 (1003) t.SDR.[email or web address] Orig Print D/T: S: 04/03/2024 (1006) PAGE 2 Signed ReportCBC W/AUTO [id number] 09:45:00* Test Item Value Reference Range Interpretation Comme nts WHITE BLOOD CELL (test code = WBC) 3.4 x10 3/uL 4.5-11.0 L RED BLOOD CELL (test code = RBC) 4.19 x10 6/uL 4.00-5.60 N HEMOGLOBIN (test code = HGB) 10.7 g/dL 12.5-16.9 L HEMATOCRIT (test code = HCT) 33.6 % 37.5-50.7 L MEAN CELL VOLUME (test code = MCV) 80.2 fL 81.0-99.0 L MEAN CELL HGB (test code = MCH) 25.5 pg 27.0-33.0 L MEAN CELL HGB CONCETRATION (test code = MCHC) 31.8 g/dL 33.0-37.0 L RED CELL DISTRIBUTION WIDTH CV (test code = RDW) 18.8 % 11.5-14.5 H RED CELL DISTRIBUTION WIDTH SD (test code = RDW-SD) 53.3 fL 37.0-54.0 N PLATELET COUNT (test code = PLT) 134 x10 3/uL 150-400 L MEAN PLATELET VOLUME (test c ode = MPV) 11.3 fL 7.0-9.0 H NEUTROPHIL % (test code = NT%) 50.6 % 56.0-77.0 L IMMATURE GRANULOCYTE % (test code = IG%) 0.3 % 0.0-2.0 N LYMPHOCYTE % (test code = LY%) 34.5 % 14.0-32.0 H MONOCYTE % (test code = MO%) 11.4 % 4.8-9.0 H EOSINOPHIL % (test code = EO%) 2.3 % 0.3-3.7 N BASOPHIL % (test code = BA%) 0.9 % 0.0-2.0 N NUCLEATED RBC % (test code = NRBC%) 0.0 % 0-0 N NEUTROPHIL # (test code = NT#) 1.73 x10 3/uL 2.0-7.6 L IMMATURE GRANULOCYTE # (test code = IG#) 0.01 x10 3/uL 0.00-0.03 N LYMPHOCYTE # (test code = LY#) 1.18 x10 3/uL 1.0-3.8 N MONOCYTE # (test code = MO#) 0.39 x10 3/uL 0.1-0.8 N EOSINOPHIL # (test code = EO#) 0.08 x10 3/uL 0.0-0.2 N BASOPHIL # (test code = BA#) 0.03 x10 3/uL 0.0-0.2 N NUCLEATED RBC # (test code = NRBC#) 0.00 x10 3/uL 0.0-0.1 N - XR CHEST 1 [id number] 09:37:00 [facility] : 1960 Sex: M FAX: Donn Ozuna [phone] [place]: St: REG Name: KEYLA LITTLE [facility] : 1960 Age/S:63/M [address] [place] [address] Bl Unit #: [id number] Loc: [place] [address] Phys: Donn Gomez AGACNP Acct: [id number] Dis Date: Status: REG ER PHONE #: [phone] Exam Date: 04/03/2024909 FAX #: [phone] Reason: Altered Mental Status EXAMS: CPT CODE: [id number] XR CHEST 1 V [id number]: - XR CHEST 1 V CLINICAL INDICATION: Altered Mental Status COMPARISON: None FINDINGS: Lungs are well aerated and clear. No pleural effusion or pneumothorax is seen. Cardiac and mediastinal silhouettes are unremarkable. No acute bony abnormality. Multiple embolization coils are noted in the upper abdomen. IMPRESSION: Negative for acute chest process. at 0937 Reported and signed by: Mayur Diaz D.O. CC: HeveronaFNP AGARICO Gomez Technologist: RT Anum(Oscar) Trnscrd Date/Time/By: 04/03/2024 (0937) : By: 96 Orig Print D/T: S: 04/03/2024 (8286) PAGE 1 Signed ReportPOCT GLUCOSE (AUTOMATED)2024-03-22 12:41:27* Test Item Value Reference Range Interpretation Comme nts POCT GLU (test code = 3353799124) 189 mg/dL 70-110 H Lab Interpretation (test cod e = 49457-4) Abnormal [facility], [id number] 02:46:46* Test Item Value Reference Range Interpretation Comme nts AMMONIA (test code = 3747105113) 92 umol/L 9-33 H Lab Interpretation (test cod e = 08024-6) Abnormal [facility] GLUCOSE (AUTOMATED)2024-03-22 02:33:08* Test Item Value Reference Range Interpretation Comme nts POCT GLU (test code = 0027649145) 167 mg/dL 70-110 H Lab Interpretation (test cod e = 27473-4) Abnormal [facility] Glucose (Age >30 Days)2024-03-22 02:31:00 * Test Item Value Reference Range Interpretation Comme nts POCT Glu (age>30days) (test code = 3342) 167 mg/dL 70-110 A Lab Interpretation (test cod e = 29370-1) Abnormal [facility] HEAD WO [id number] 02:04:37EXAM: CT HEAD WO CONTRAST HISTORY: 63 years-old Male; Provided indication: Altered mental status. TECHNIQUE: Axial CT of the head was performed without intravenouscontrast.Coronal and sagittal reformats were generated. COMPARISON: Prior CT head 02/25/2024, MR brain 01/31/2024 FINDINGS: The ventriclesand cerebral sulci are normal in caliber and configuration.No midline shift or pathological extra-axial fluid collection is present.The basal cisterns are unremarkable. No acute intracranial hemorrhage or significant mass effect is visualized.Small chronic right MCA territory infarct, unchanged from the priorexamination. The mastoid air cells and paranasal sinuses are clear. The calvarium andcentral skull base are unremarkableBapt[facility] TexasLalaic Acid Whole [id number] 21:53:14* Test Item Value Reference Range Interpretation Comme nts LACTIC ACID (test code = 3573111025) 1.73 mmol/L 0.50-2.20 Lab Interpretation (test cod e = 10057-1) Normal [facility] TexasXR CHEST 1 [id number] 21:29:32CHEST SINGLE VIEW CLINICAL HISTORY: Altered mental status ORDERING PHYSICIAN: ROSARIO SCHWARTZ TECHNIQUE: Frontal view of chest COMPARISON: 12/16/2023 FINDINGS: Numerous embolization coils are seen inthe upper abdomen. There is anormal cardiomediastinal silhouette. The pulmonary vascularity does notappear congested. The lungs appear clear demonstrating no focal pulmonaryconsolidation, pleural effusion, or pneumothorax. No acute osseous processis observed. [facility] TexasPOCT GLUCOSE (AUTOMATED)2024-03-04 13:35:15* Test Item Value Reference Range Interpretation Comme nts POCT GLU (test code = 6515115450) 253 mg/dL 70-110 H Lab Interpretation (test cod e = 52583-0) Abnormal [facility] TexasMagnesium2024-06-21 11:20:05* Test Item Value Reference Range Interpretation Comme nts MAGNESIUM (test code = 7952827828) 1.8 mg/dL 1.7-2.4 Lab Interpretation (test cod e = 62389-7) Normal [facility] TexasBasic Metabolic Panel (NA, K, CL, CO2, GLUCOSE, BUN, CREATININE, CA)2024-03-04 11:20:05* Test Item Value Reference Range Interpretation Comme nts NA (test code = 3058002525) 134 mmol/L 135-145 L K (test code = 3668949727) 4.1 mmol/L 3.5-5.0 CL (test code = 4808688264) 106 mmol/L 98-108 CO2 TOTAL (test code = 0419576157) 23 mmol/L 23-31 AGAP (test code = 6269719966) 5 2-16 BUN (test code = 0736929789) 14 mg/dL 7-23 GLUCOSE (test code = 3137312417) 259 mg/dL 70-110 H CREATININE (test code = 2160-0) 0.70 mg/dL 0.60-1.25 CALCIUM (test code = 6487377882) 8.6 mg/dL 8.6-10.6 eGFR (test code = 82785-3) 104.8 mL/min/1.73m2 CKD-EPI eGFR (2020). Assuming creatinine has been stable day-to-day for at least three months, the eGFR indicates Category G1 (>= 90 mL/min/1.73 m2) Lab Interpretation (test code = 41528-1) Abnormal [facility] GLUCOSE (AUTOMATED)2024-03-04 01:02:39* Test Item Value Reference Range Interpretation Comme nts POCT GLU (test code = 8330014038) 362 mg/dL 70-110 H Lab Interpretation (test cod e = 07018-0) Abnormal [facility] GLUCOSE (AUTOMATED)2024-03-03 21:40:24* Test Item Value Reference Range Interpretation Comme nts POCT GLU (test code = 1790173344) 328 mg/dL 70-110 H Lab Interpretation (test cod e = 63783-3) Abnormal [facility] GLUCOSE (AUTOMATED)2024-03-03 17:32:33* Test Item Value Reference Range Interpretation Comme nts POCT GLU (test code = 0192722670) 230 mg/dL 70-110 H Lab Interpretation (test cod e = 47359-9) Abnormal [facility] GLUCOSE (AUTOMATED)2024-03-03 14:10:48* Test Item Value Reference Range Interpretation Comme nts POCT GLU (test code = 0734758465) 221 mg/dL 70-110 H Lab Interpretation (test cod e = 75899-9) Abnormal [facility] GLUCOSE (AUTOMATED)2024-03-03 01:19:29* Test Item Value Reference Range Interpretation Comme nts POCT GLU (test code = 2315275005) 318 mg/dL 70-110 H Lab Interpretation (test cod e = 22689-4) Abnormal [facility] GLUCOSE (AUTOMATED)2024-03-02 21:48:03* Test Item Value Reference Range Interpretation Comme nts POCT GLU (test code = 8292578531) 273 mg/dL 70-110 H Lab Interpretation (test cod e = 74415-9) Abnormal [facility] TexasIR PARACENTESIS/PERITONECENTESIS WITH IMAGING 2024-03-02 20:10:53LIMITED ABDOMINAL ULTRASOUND HISTORY: 63-year-old male needing diagnostic paracentesis. TECHNIQUE:Ultrasound images of all four quadrants of the abdomen and pelvis wereobtained. Images were archived to PACS. No ascites was seen. No paracentesis was performed.[facility] GLUCOSE (AUTOMATED)2024-03-02 19:03:38* Test Item Value Reference Range Interpretation Comme nts POCT GLU (test code = 0502806835) 219 mg/dL 70-110 H Lab Interpretation (test cod e = 68454-3) Abnormal [facility] GLUCOSE (AUTOMATED)2024-03-02 13:02:08* Test Item Value Reference Range Interpretation Comme nts POCT GLU (test code = 8613387071) 218 mg/dL 70-110 H Lab Interpretation (test cod e = 98828-1) Abnormal [facility] GLUCOSE (AUTOMATED)2024-03-02 02:06:29* Test Item Value Reference Range Interpretation Comme nts POCT GLU (test code = 0524514758) 300 mg/dL 70-110 H Lab Interpretation (test cod e = 30233-0) Abnormal [facility] GLUCOSE (AUTOMATED)2024-03-01 22:34:26* Test Item Value Reference Range Interpretation Comme nts POCT GLU (test code = 0518033892) 313 mg/dL 70-110 H Lab Interpretation (test cod e = 05785-3) Abnormal [facility] GLUCOSE (AUTOMATED)2024-03-01 17:45:03* Test Item Value Reference Range Interpretation Comme nts POCT GLU (test code = 6875330450) 275 mg/dL 70-110 H Lab Interpretation (test cod e = 58183-4) Abnormal [facility] GLUCOSE (AUTOMATED)2024-03-01 14:55:02* Test Item Value Reference Range Interpretation Comme nts POCT GLU (test code = 8179027967) 386 mg/dL 70-110 H Lab Interpretation (test cod e = 73053-4) Abnormal [facility] GLUCOSE (AUTOMATED)2024-03-01 01:49:34* Test Item Value Reference Range Interpretation Comme nts POCT GLU (test code = 6804873600) 265 mg/dL 70-110 H Lab Interpretation (test cod e = 70023-5) Abnormal [facility] GLUCOSE (AUTOMATED)2024-02-29 22:38:41* Test Item Value Reference Range Interpretation Comme nts POCT GLU (test code = 1274730208) 218 mg/dL 70-110 H Lab Interpretation (test cod e = 61044-1) Abnormal [facility] GLUCOSE (AUTOMATED)2024-02-29 20:05:37* Test Item Value Reference Range Interpretation Comme nts POCT GLU (test code = 3200878085) 252 mg/dL 70-110 H Lab Interpretation (test cod e = 86839-8) Abnormal [facility] GLUCOSE (AUTOMATED)2024-02-29 17:42:00* Test Item Value Reference Range Interpretation Comme nts POCT GLU (test code = 9612460287) 318 mg/dL 70-110 H Lab Interpretation (test cod e = 39911-4) Abnormal [facility] GLUCOSE (AUTOMATED)2024-02-29 15:38:29* Test Item Value Reference Range Interpretation Comme nts POCT GLU (test code = 4719262754) 215 mg/dL 70-110 H Lab Interpretation (test cod e = 91093-4) Abnormal [facility] GLUCOSE (AUTOMATED)2024-02-28 23:12:53* Test Item Value Reference Range Interpretation Comme nts POCT GLU (test code = 5538063893) 231 mg/dL 70-110 H Lab Interpretation (test cod e = 73670-9) Abnormal [facility] [id number] 14:55:50* Test Item Value Reference Range Interpretation Comme nts FREE T4 (test code = 6789531451) 1.07 0.78-2.20 Lab Interpretation (test cod e = 55090-3) Normal [facility] [id number] 14:55:50* Test Item Value Reference Range Interpretation Comme nts FREE T4 (test code = 2692925759) 1.07 0.78-2.20 Lab Interpretation (test cod e = 65544-3) Normal [facility] GLUCOSE (AUTOMATED)2024-02-28 01:06:14* Test Item Value Reference Range Interpretation Comme nts POCT GLU (test code = 8959662989) 159 mg/dL 70-110 H Lab Interpretation (test cod e = 53105-7) Abnormal [facility] GLUCOSE (AUTOMATED)2024-02-28 01:06:14* Test Item Value Reference Range Interpretation Comme nts POCT GLU (test code = 8044175783) 159 mg/dL 70-110 H Lab Interpretation (test cod e = 33387-7) Abnormal [facility] GLUCOSE (AUTOMATED)2024-02-27 21:59:51* Test Item Value Reference Range Interpretation Comme nts POCT GLU (test code = 4649385890) 239 mg/dL 70-110 H Lab Interpretation (test cod e = 73753-6) Abnormal [facility] GLUCOSE (AUTOMATED)2024-02-27 20:16:00* Test Item Value Reference Range Interpretation Comme nts POCT GLU (test code = 5137912568) 197 mg/dL 70-110 H Lab Interpretation (test cod e = 29548-4) Abnormal [facility] GLUCOSE (AUTOMATED)2024-02-27 14:35:32* Test Item Value Reference Range Interpretation Comme nts POCT GLU (test code = 9418794970) 189 mg/dL 70-110 H Lab Interpretation (test cod e = 36145-4) Abnormal [facility] GLUCOSE (AUTOMATED)2024-02-27 01:40:35* Test Item Value Reference Range Interpretation Comme nts POCT GLU (test code = 4743015254) 295 mg/dL 70-110 H Lab Interpretation (test cod e = 58151-4) Abnormal [facility] GLUCOSE (AUTOMATED)2024-02-26 23:13:08* Test Item Value Reference Range Interpretation Comme nts POCT GLU (test code = 5985822525) 207 mg/dL 70-110 H Lab Interpretation (test cod e = 33266-6) Abnormal [facility] GLUCOSE (AUTOMATED)2024-02-26 17:04:48* Test Item Value Reference Range Interpretation Comme nts POCT GLU (test code = 7676162342) 297 mg/dL 70-110 H Lab Interpretation (test cod e = 95444-9) Abnormal [facility] GLUCOSE (AUTOMATED)2024-02-26 14:28:19* Test Item Value Reference Range Interpretation Comme nts POCT GLU (test code = 9164918642) 221 mg/dL 70-110 H Lab Interpretation (test cod e = 71410-3) Abnormal [facility] Texas[facility]esium2024-06-14 10:08:47* Test Item Value Reference Range Interpretation Comme nts MAGNESIUM (test code = 7421400017) 2.1 mg/dL 1.7-2.4 Lab Interpretation (test cod e = 84358-5) Normal [facility] Metabolic Panel (NA, K, CL, CO2, GLUCOSE, BUN, CREATININE, CA)2024-02-26 10:08:47* Test Item Value Reference Range Interpretation Comme nts NA (test code = 3622930523) 140 mmol/L 135-145 K (test code = 2078203209) 4.0 mmol/L 3.5-5.0 CL (test code = 9671372392) 112 mmol/L 98-108 H CO2 TOTAL (test code = 2156722166) 23 mmol/L 23-31 AGAP (test code = 3789163134) 5 2-16 BUN (test code = 1437204079) 13 mg/dL 7-23 GLUCOSE (test code = 3868531789) 176 mg/dL 70-110 H CREATININE (test code = 2160-0) 0.70 mg/dL 0.60-1.25 CALCIUM (test code = 2942381267) 8.8 mg/dL 8.6-10.6 eGFR (test code = 54500-4) 104.8 mL/min/1.73m2 CKD-EPI eGFR (2020). Assuming creatinine has been stable day-to-day for at least three months, the eGFR indicates Category G1 (>= 90 mL/min/1.73 m2) Lab Interpretation (test code = 55377-9) Abnormal [facility] with [id number] 09:48:45* Test Item Value Reference Range Interpretation Comme nts WBC (test code = 6690-2) 5.07 4.20-10.70 RBC (test code = 789-8) 3.51 4.26-5.52 L HGB (test code = 718-7) 9.1 g/dL 12.2-16.4 L HCT (test code = 4544-3) 28.0 % 38.4-49.3 L MCV (test code = 787-2) 79.8 fL 81.7-95.6 L MCH (test code = 785-6) 25.9 pg 26.1-32.7 L MCHC (test code = 786-4) 32.5 g/dL 31.2-35.0 RDW-SD (test code = 06789-7) 41.4 fL 38.5-51.6 RDW-CV (test code = 788-0) 14.4 % 12.1-15.4 PLT (test code = 777-3) 163 150-328 MPV (test code = 68807-2) 9.6 fL 9.8-13.0 L NRBC/100 WBC (test code = 7351912205) 0.0 0.0-10.0 NRBC x10^3 (test code = 9399965074) See_Comment [Automated messa ge] The system which generated this result transmitted reference range: 10*3/?L. The reference range was not used to interpret this result as normal/abnormal. GRAN MAT (NEUT) % (test code = 770-8) 56.3 % IMM GRAN % (test code = 7638314757) 0.20 % LYMPH % (test code = 736-9) 28.2 % MONO % (test code = 5905-5) 10.5 % EOS % (test code = 713-8) 3.6 % BASO % (test code = 706-2) 1.2 % GRAN MAT x10^3(ANC) (test code = 9212793579) 2.86 10*3/uL 1.99-6.95 IMM GRAN x10^3 (test code = 4863158086) 0.00-0.06 LYMPH x10^3 (test code = 731-0) 1.43 10*3/uL 1.09-3.23 MONO x10^3 (test code = 742-7) 0.53 10*3/uL 0.36-1.02 EOS x10^3 (test code = 711-2) 0.18 10*3/uL 0.06-0.53 BASO x10^3 (test code = 704-7) 0.06 10*3/uL 0.01-0.09 Lab Interpretation (test code = 49330-9) Abnormal [facility] GLUCOSE (AUTOMATED)2024-02-26 02:18:26* Test Item Value Reference Range Interpretation Comme [facility] POCT GLU (test code = 4299958184) 255 mg/dL 70-110 H Lab Interpretation (test cod e = 84091-9) [facility] [id number] 19:47:00EXAM: US ABDOMEN LIMITED WITH DOPPLER HISTORY: 63 years -old Male with evaluate for any drainable ascites TECHNIQUE: Limited ultrasound imaging of the abdominal quadrants wasperformed including colorDoppler evaluation with airline security representative imagesobtained. COMPARISON: Ultrasound IR TIPS on 02/13/2024. F INDINGS: Images of the abdominal quadrants reveal small fluid collections within theupper abdomen; 4 x 1.3 cm in the right upper quadrant and 2.4 x 1.9 cm inthe left upper quadrant. Interval improvement compared to prior exam.[facility] ABDOMEN LIMITED WITH [id number] 19:47:00EXAM: US ABDOMEN LIMITED WITH DOPPLER HISTORY: 63 years -old Male with evaluate for any drainable ascites TECHNIQUE: Limited ultrasound imaging of the abdominal quadrants wasperformed including colorDoppler evaluation with airline security representative imagesobtained. COMPARISON: Ultrasound IR TIPS on 02/13/2024. FINDINGS: Images of the abdominal quadrants reveal small fluid collections within theupper abdomen; 4 x 1.3 cm in the right upper quadrant and 2.4 x 1.9 cm inthe left upper quadrant. Interval improvement compared to prior exam.[facility] 18:12:38* Test Item Value Reference Range Interpretation Comme [facility] APTT Patient (test code = 3173-2) 42 26-36 H Lab Interpretation (test cod e = 62629-8) Abnormal [facility] 18:12:38* Test Item Value Reference Range Interpretation Comme [facility] APTT Patient (test code = 3173-2) 42 26-36 H Lab Interpretation (test cod e = 79708-9) Abnormal [facility] CHE[facility] 2 [id number] 16:03:33EXAM: XR CHEST 2 VW COMPARISON: Multiple chest regressed most recent performed 01/31/2023 4 HISTORY:AMS FINDINGS: Lungs: The lungs are well expanded and clear. Demonstration of anatelectasis in the left lower lung. No focal opacity. No pleuralabnormality. Heart/Mediastinum: The cardiomediastinal silhouette is unremarkable. Bones and soft tissues: No osseous lesions visualized. Radiopaqueembolization coils projecting over the epigastrium.[facility] CHEST 2 [id number] 16:03:33EXAM: XR CHEST 2 VW COMPARISON: Multiple chest regressed most recent performed 01/31/2023 4 HISTORY:AMS FINDINGS: Lungs: The lungs are well expanded and clear. Demonstration of anatelectasis in the left lower lung. No focal opacity. No pleuralabnormality. Heart/Mediastinum: The cardiomediastinal silhouette is unremarkable. Bones and soft tissues: No osseous lesions visualized. Radiopaqueembolization coils projecting over the epigastrium.[facility] WO [id number] 16:02:23EXAM: CT HEAD WO CONTRAST HISTORY: Mental status change, unknown cause . TECHNIQUE: Axial CT of thehead was performed and reconstructed at 5 mmintervals. Coronal and sagittal reformatted images weregenerated. COMPARISON: Brain MRI dated on 01/31/2024 FINDINGS: The ventricles and cerebral sulci arenormal in caliber and configuration.No midline shift or pathological extra-axial fluid collection is present.The basal cisterns are unremarkable. No acute intracranial hemorrhage or significant mass effect is visualized.Small size chronic infarct in the territory of right MCA is again noted andunchanged prior scan. The kaiser- white matter differentiation is preserved. The mastoid air cells and visualized paranasal air sinuses are clear. Thecalvarium and central skull base are unremarkable. Vascular calcificationof both carotid siphons. Focal scalp swelling seen in the occipital region, involving the skin and subcutaneous fat (series #4 image #42 and 48),unchanged prior scan. Direct visualization is advised.[facility] [id number] 16:02:23 EXAM: CT HEAD WO CONTRAST HISTORY: Mental status change, unknown cause . TECHNIQUE: Axial CT of thehead was performed and reconstructed at 5 mmintervals. Coronal and sagittal reformatted images weregenerated. COMPARISON: Brain MRI dated on 01/31/2024 FINDINGS: The ventricles and cerebral sulci arenormal in caliber and configuration.No midline shift or pathological extra-axial fluid collection is present.The basal cisterns are unremarkable. No acute intracranial hemorrhage or significant mass effect is visualized.Small size chronic infarct in the territory of right MCA is again noted andunchanged prior scan. The kaiser- white matter differentiation is preserved. The mastoid air cells and visualized paranasal air sinuses are clear. Thecalvarium and central skull base are unremarkable. Vascular calcificationof both carotid siphons. Focal scalp swelling seen in the occipital region, involving the skin and subcutaneous fat (series #4 image #42 and 48),unchanged prior scan. Direct visualization is advised.[facility] INVESTIGATION [id number] 15:54:39* Test Item Value Reference Range Interpretation Comme nts ABO & RH (test code = 20) A Negative Performed at [facility] Laboratory [facility] Blood [address] Free: [phone] No. [id number] [facility] INVESTIGATION [id number] 15:54:39* Test Item Value Reference Range Interpretation Comme nts ABO & RH (test code = 20) A Negative Performed at [facility] Laboratory [facility] Blood [address] Free: [phone] No. [id number] [facility], [id number] 15:25:33* Test Item Value Reference Range Interpretation Comme nts AMMONIA (test code = 5538474420) 58 umol/L 9-33 H Lab Interpretation (test cod e = 48113-1) Abnormal [facility], [id number] 15:25:33* Test Item Value Reference Range Interpretation Comme nts AMMONIA (test code = 7895982189) 58 umol/L 9-33 H Lab Interpretation (test cod e = 48708-2) Abnormal [facility] [place]HEPAT[facility] FUNCTION PANEL (70519) (ALB,T.PRO,BILI T,BU/BC,ALT,AST,ALK PHOS)2024-02-25 15:17:32* Test Item Value Reference Range Interpretation Comme nts TOTAL BILI (test code = 3382201614) 1.0 mg/dL 0.1-1.1 BILI UNCON (test code = 8041346644) 0.6 mg/dL 0.1-1.1 BILI CONJ (test code = 5852870898) 0.0 mg/dL 0.0-0.3 T PROTEIN (test code = 8642999862) 6.9 g/dL 6.3-8.2 ALBUMIN (test code = 4956344343) 3.5 g/dL 3.5-5.0 ALK PHOS (test code = 9046617086) 120 U/L 34-122 ALTv (test code = 1742-6) 77 U/L 5-50 H AST(SGOT) (test code = 2161714697) 42 U/L 13-40 H Lab Interpretation (test cod e = 68008-7) Abnormal [facility] METABOLIC PANEL (NA, K, CL, CO2, GLUCOSE, BUN, CREATININE, CA)2024-02-25 15:17:32* Test Item Value Reference Range Interpretation Comme nts NA (test code = 2663501408) 139 mmol/L 135-145 K (test code = 7642794348) 4.1 mmol/L 3.5-5.0 CL (test code = 8456844596) 110 mmol/L 98-108 H CO2 TOTAL (test code = 1142783854) 25 mmol/L 23-31 AGAP (test code = 2930052557) 4 2-16 BUN (test code = 4084396404) 10 mg/dL 7-23 GLUCOSE (test code = 5353232606) 235 mg/dL 70-110 H CREATININE (test code = 2160-0) 0.68 mg/dL 0.60-1.25 CALCIUM (test code = 7066880728) 8.8 mg/dL 8.6-10.6 eGFR (test code = 33064-3) 105.8 mL/min/1.73m2 CKD-EPI eGFR (2020). Assuming creatinine has been stable day-to-day for at least three months, the eGFR indicates Category G1 (>= 90 mL/min/1.73 m2) Lab Interpretation (test code = 72402-8) Abnormal [facility] [place]HEP[facility] FUNCTION PANEL (02818) (ALB,T.PRO,BILI T,BU/BC,ALT,AST,ALK PHOS)2024-02-25 15:17:32* Test Item Value Reference Range Interpretation Comme nts TOTAL BILI (test code = 8617492046) 1.0 mg/dL 0.1-1.1 BILI UNCON (test code = 3162217475) 0.6 mg/dL 0.1-1.1 BILI CONJ (test code = 2487984718) 0.0 mg/dL 0.0-0.3 T PROTEIN (test code = 0101597075) 6.9 g/dL 6.3-8.2 ALBUMIN (test code = 6136433523) 3.5 g/dL 3.5-5.0 ALK PHOS (test code = 3283432154) 120 U/L 34-122 ALTv (test code = 1742-6) 77 U/L 5-50 H AST(SGOT) (test code = 4186172591) 42 U/L 13-40 H Lab Interpretation (test cod e = 51825-1) Abnormal [facility] TexasPROTHROMBIN TIME / [id number] 15:14:13* Test Item Value Reference Range Interpretation Comme nts PROTIME PATIENT (test code = 5964-2) 14.3 10.1-12.6 H INR (test code = 6301-6) 1.3 Normal INR <1.1; Warfarin Therapeutic range 2.0 to 3.0 or 2.5 to 3.5, depending upon the indications. Lab Interpretation (test code = 52161-9) Abnormal [facility] TexasPROTHROMBIN TIME / [id number] 15:14:13* Test Item Value Reference Range Interpretation Comme nts PROTIME PATIENT (test code = 5964-2) 14.3 10.1-12.6 H INR (test code = 6301-6) 1.3 Normal INR <1.1; Warfarin Therapeutic range 2.0 to 3.0 or 2.5 to 3.5, depending upon the indications. Lab Interpretation (test code = 53163-0) Abnormal [facility] TexasCB WITH [id number] 15:09:14* Test Item Value Reference Range Interpretation Comme nts WBC (test code = 6690-2) 4.87 4.20-10.70 RBC (test code = 789-8) 3.43 4.26-5.52 L HGB (test code = 718-7) 9.0 g/dL 12.2-16.4 L HCT (test code = 4544-3) 28.1 % 38.4-49.3 L MCV (test code = 787-2) 81.9 fL 81.7-95.6 MCH (test code = 785-6) 26.2 pg 26.1-32.7 MCHC (test code = 786-4) 32.0 g/dL 31.2-35.0 RDW-SD (test code = 22583-1) 42.3 fL 38.5-51.6 RDW-CV (test code = 788-0) 14.5 % 12.1-15.4 PLT (test code = 777-3) 154 150-328 MPV (test code = 77540-8) 9.4 fL 9.8-13.0 L NRBC/100 WBC (test code = 5847648517) 0.0 0.0-10.0 NRBC x10^3 (test code = 5357674943) See_Comment [Automated messa ge] The system which generated this result transmitted reference range: 10*3/?L. The reference range was not used to interpret this result as normal/abnormal. GRAN MAT (NEUT) % (test code = 770-8) 60.0 % IMM GRAN % (test code = 8757507251) 0.20 % LYMPH % (test code = 736-9) 23.8 % MONO % (test code = 5905-5) 11.7 % EOS % (test code = 713-8) 3.5 % BASO % (test code = 706-2) 0.8 % GRAN MAT x10^3(ANC) (test code = 9856783546) 2.92 10*3/uL 1.99-6.95 IMM GRAN x10^3 (test code = 7319215535) 0.00-0.06 LYMPH x10^3 (test code = 731-0) 1.16 10*3/uL 1.09-3.23 MONO x10^3 (test code = 742-7) 0.57 10*3/uL 0.36-1.02 EOS x10^3 (test code = 711-2) 0.17 10*3/uL 0.06-0.53 BASO x10^3 (test code = 704-7) 0.04 10*3/uL 0.01-0.09 Lab Interpretation (test code = 43132-2) Abnormal [facility] TexasType and Screen - ONCE [id number] 15:09:00* Test Item Value Reference Range Interpretation Comme nts IAT (test code = 1185) Negative [facility]Type and Screen - ONCE [id number] 15:09:00* Test Item Value Reference Range Interpretation Comme nts IAT (test code = 1185) Negative [facility] TexasABG+COOX+NA+K+GLU+CA2+2024-02-25 01:43:39* Test Item Value Reference Range Interpretation Comme nts PH (test code = 2) 7.44 7.35-7.45 PCO2 (test code = 7325292379) 38 35-45 PO2 (test code = 5991057636) 234 80-100 H HCO3 (test code = 7635237316) 25 22-26 BE (test code = 3035321823) 1.4 -3.0-3.0 THB (test code = 9529326824) 14.1 g/dL 13.5-18.0 %O2HB (test code = 0092250096) 99.0 % 94.0-99.0 %COHB ART (test code = 9374881749) 0.8 % 0.0-1.5 %METHB ART (test code = 3062704653) 0.1 % 0.4-1.5 L VOL%O2 ART (test code = 0509269953) 20.1 % 15.0-23.0 QUES NA (test code = 6169499375) 139 mmol/L 135-145 K+ (test code = 9873690092) 3.6 mmol/L 3.5-5.0 AC CA IONZ (test code = 0742759512) 4.40 mg/dL 4.50-5.30 L GLUCOSE (test code = 7321374222) 138 mg/dL 70-110 H Lab Interpretation (test cod e = 93698-2) Abnormal [facility] TexasPOCT GLUCOSE (AUTOMATED)2024-02-15 21:32:02* Test Item Value Reference Range Interpretation Comme nts POCT GLU (test code = 9551575637) 195 mg/dL 70-110 H Lab Interpretation (test cod e = 23007-3) Abnormal [facility] GLUCOSE (AUTOMATED)2024-02-15 16:33:08* Test Item Value Reference Range Interpretation Comme nts POCT GLU (test code = 3500687488) 220 mg/dL 70-110 H Lab Interpretation (test cod e = 53358-9) Abnormal [facility] GLUCOSE (AUTOMATED)2024-02-15 16:33:08* Test Item Value Reference Range Interpretation Comme nts POCT GLU (test code = 6049989049) 220 mg/dL 70-110 H Lab Interpretation (test cod e = 71833-1) Abnormal [facility] GLUCOSE (AUTOMATED)2024-02-15 16:33:08* Test Item Value Reference Range Interpretation Comme nts POCT GLU (test code = 5569145247) 220 mg/dL 70-110 H Lab Interpretation (test cod e = 42564-0) Abnormal [facility] GLUCOSE (AUTOMATED)2024-02-15 16:33:08* Test Item Value Reference Range Interpretation Comme nts POCT GLU (test code = 4041399868) 220 mg/dL 70-110 H Lab Interpretation (test cod e = 26279-7) Abnormal [facility] TexasIR EMBOLIZATION ARTERIAL OR VENOUS HEMORRHAGE OR LYMPHATIC [id number] 13:32:541. ?TRANSJUGULAR INTRAHEPATIC PORTOSYSTEMIC SHUNT2. ?ANTEGRADE EMBOLIZATION OF GASTROESOPHAGEAL ANDGASTRIC VARICES3. ?ULTRASOUND-GUIDED PARACENTESIS HISTORY: 63-year-old male with decompensated cirrhosis and varicealbleeding, not amenable to endoscopic management. ATTENDING: Dr. Nash MosleyRESIDENT: Dr. Gil Fitzgerald FLUOROSCOPY TIME: 74.6 minutes.RADIATION DOSE: 1128 mGy. SEDATION & MEDICATIONS: General anesthesia administered by anesthesiologyservice. Please refer to Epic anesthesiology note. TECHNIQUE: The risks, benefits and alternatives were discussed and informedconsent was obtained. Prior to beginning the procedure, [place] Protocolwas performed to confirm the patient's identity and the planned procedure.Maximum sterile barriers including cap, mask, hand hygiene, sterile gloves,sterile gown, large sterile drape and cutaneous antisepsis were used. Under ultrasound guidance, a 5-Chinese Yueh needle was advanced into theperitoneal cavity. This was used for drainage of ascites with a total gu2222 mL of serous fluid. The needle was subsequently removed at the end ofthe proc edures. The skin over the right internal jugular vein access site was infiltratedwith 1 percent lidocaine. The vein was accessed using real-time ultrasoundguidance. A wire was advanced centrally followed by placement of a 10french vascular sheath. Using fluoroscopic guidance, an MPA catheter was adv anced into the middlehepatic vein, where a digital subtraction venogram was performed. The catheterwas exchanged for a Rosch Uchida set. Four passes were madeacross the liver parenchyma into the left portal vein under fluoroscopy andultrasound guidance. A guidewire followed by a catheter was advanced intothe portal vein which was confirmed by contrast injection. A markingpigtail catheter was then advanced into the portal vein and subsequentlyinto the splenic vein where digital subtraction venograms were performed.Simultaneous portal and hepatic venography was done to measure the lengthof thetranshepatic tract. Pre- TIPS pressures were measured in the portalvein and right atrium. The catheter was exchanged over an extra-stiffguidewire for a 6 mm balloon which were used to pre-dilate the parenchymaltract. A long sheath was advanced into the portal vein and through this a 8 cm - 2cm Viatorr stent was advanced and deployed. The stent graft was dilatedusing an 8 mm balloon. A pigtail catheter was then advanced into the portalvein for post-TIPS venography and pressure measurements. Splenic venography demonstrated a patent splenic vein with a large leftgastric vein supplying gastroesophageal variceal complex. Technicallysuccessful catheterization and subsequent embolization of the left gastricvein and its branches was performed using a combination of Gelfoam andcoils. Venography also demonstrated varices arising from the short gastricvein supplying gastrosplenic varices. Technically successfulcatheterization and subsequent embolization of ?the short gastric veincomplex and its branches was performed using a combination of Gelfoam andcoils. Following embolization, the cathetersand sheaths were subsequently removedand the patient tolerated the procedure well. ESTIMATED BLOOD LOSS: Less than 50 mL. CONDITION: Stable. DISCHARGED TO: MICU. FINDINGS: 1. ?Initial ultrasound of the access vein showed a patent right internaljugular vein. 2. ?Middle hepatic venogram demonstrates a patent middle hepatic vein withconventional anatomy. 3. ?Technically successful placement of a transjugular intrahepaticportosystemic shunt between the middle hepatic vein and the left portalvein using a 8-2 cm Viatorr stent dilated to 8 mm.4. ?Technically successful antegrade embolization of the left gastric veinsupplying gastroesophageal variceal complex as well as the short gastricvein supplying gastrosplenic variceal complex using coils and Gelfoam.5. ?Pre TIPS placement, the portosystemicgradient was 19 mmHg (PoralPressure 31 mmHg, Right Atrial Pressure 12 mmHg)6. ?Post TIPS placement the portosystemic gradient was 11 mmHg. (Portalpressure 30 mmHg right atrial pressure 19 mmHg).[facility]IR PARACENTESIS/PERITONECENTESIS WITH [id number] 13:32:541. ?TRANSJUGULAR INTRAHEPATIC PORTOSYSTEMIC SHUNT2. ?ANTEGRADE EMBOLIZATION OF GASTROESOPHAGEAL ANDGASTRIC VARICES3. ?ULTRASOUND-GUIDED PARACENTESIS HISTORY: 63-year-old male with decompensated cirrhosis and varicealbleeding, not amenable to endoscopic management. ATTENDING: Dr. Nash MosleyRESIDENT: Dr. Gil Fitzgerald FLUOROSCOPY TIME: 74.6 minutes.RADIATION DOSE: 1128 mGy. SEDATION & MEDICATIONS: General anesthesia administered by anesthesiologyservice. Please refer to [facility] anesthesiology note. TECHNIQUE: The risks, benefits and alternatives were discussed and informedconsent was obtained. Prior to beginning the procedure, [place] Protocolwas performed to confirm the patient's identity and the planned procedure.Maximum sterile barriers including cap, mask, hand hygiene, sterile gloves,sterile gown, large sterile drape and cutaneous antisepsis were used. Under ultrasound guidance, a 5-Chinese Yueh needle was advanced into theperitoneal cavity. This was used for drainage of ascites with a total bs2650 mL of serous fluid. The needle was subsequently removed at the end ofthe procedures. The skin over the right internal jugular vein access site was infiltratedwith 1 percent lidocaine. The vein was accessed using real-time ultrasoundguidance. A wire was advanced centrally followed by placement of a 10french vascular sheath. Using fluoroscopic guidance, an MPA catheter was adv anced into the middlehepatic vein, where a digital subtraction venogram was performed. The catheterwas exchanged for a [facility] Uchida set. Four passes were madeacross the liver parenchyma into the left portal vein under fluoroscopy andultrasound guidance. A guidewire followed by a catheter was advanced intothe portal vein which was confirmed by contrast injection. A markingpigtail catheter was then advanced into the portal vein and subsequentlyinto the splenic vein where digital subtraction venograms were performed.Simultaneous portal and hepatic venography was done to measure the lengthof thetranshepatic tract. Pre- TIPS pressures were measured in the portalvein and right atrium. The catheter was exchanged over an extra-stiffguidewire for a 6 mm balloon which were used to pre-dilate the parenchymaltract. A long sheath was advanced into the portal vein and through this a 8 cm - 2cm Viatorr stent was advanced and deployed. The stent graft was dilatedusing an 8 mm balloon. A pigtail catheter was then advanced into the portalvein for post-TIPS venography and pressure measurements. Splenic venography demonstrated a patent splenic vein with a large leftgastric vein supplying gastroesophageal variceal complex. Technicallysuccessful catheterization and subsequent embolization of the left gastricvein and its branches was performed using a combination of Gelfoam andcoils. Venography also demonstrated varices arising from the short gastricvein supplying gastrosplenic varices. Technically successfulcatheterization and subsequent embolization of ?the short gastric veincomplex and its branches was performed using a combination of Gelfoam andcoils. Following embolization, the cathetersand sheaths were subsequently removedand the patient tolerated the procedure well. ESTIMATED BLOOD LOSS: Less than 50 mL. CONDITION: Stable. DISCHARGED TO: MICU. FINDINGS: 1. ?Initial ultrasound of the access vein showed a patent right internaljugular vein. 2. ?Middle hepatic venogram demonstrates a patent middle hepatic vein withconventional anatomy. 3. ?Technically successful placement of a transjugular intrahepaticportosystemic shunt between the middle hepatic vein and the left portalvein using a 8-2 cm Viatorr stent dilated to 8 mm.4. ?Technically successful antegrade embolization of the left gastric veinsupplying gastroesophageal variceal complex as well as the short gastricvein supplying gastrosplenic variceal complex using coils and Gelfoam.5. ?Pre TIPS placement, the portosystemicgradient was 19 mmHg (PoralPressure 31 mmHg, Right Atrial Pressure 12 mmHg)6. ?Post TIPS placement the portosystemic gradient was 11 mmHg. (Portalpressure 30 mmHg right atrial pressure 19 mmHg).[facility]IR [id number] 13:32:541. ?TRANSJUGULAR INTRAHEPATIC PORTOSYSTEMIC SHUNT2. ?ANTEGRADE EMBOLIZATION OF GASTROESOPHAGEAL ANDGASTRIC VARICES3. ?ULTRASOUND-GUIDED PARACENTESIS HISTORY: 63-year-old male with decompensated cirrhosis and varicealbleeding, not amenable to endoscopic management. ATTENDING: Dr. Nash PatelIDENT: Dr. Gil Fitzgerald FLUOROSCOPY TIME: 74.6 minutes.RADIATION DOSE: 1128 mGy. SEDATION & MEDICATIONS: General anesthesia administered by anesthesiologyservice. Please refer to [facility] anesthesiology note. TECHNIQUE: The risks, benefits and alternatives were discussed and informedconsent was obtained. Prior to beginning the procedure, [place] Protocolwas performed to confirm the patient's identity and the planned procedure.Maximum sterile barriers including cap, mask, hand hygiene, sterile gloves,sterile gown, large sterile drape and cutaneous antisepsis were used. Under ultrasound guidance, a 5-Chinese Yueh needle was advanced into theperitoneal cavity. This was used for drainage of ascites with a total ds2108 mL of serous fluid. The needle was subsequently removed at the end ofthe proc edures. The skin over the right internal jugular vein access site was infiltratedwith 1 percent lidocaine. The vein was accessed using real-time ultrasoundguidance. A wire was advanced centrally followed by placement of a 10french vascular sheath. Using fluoroscopic guidance, an MPA catheter was adv anced into the middlehepatic vein, where a digital subtraction venogram was performed. The catheterwas exchanged for a [facility] Uchida set. Four passes were madeacross the liver parenchyma into the left portal vein under fluoroscopy andultrasound guidance. A guidewire followed by a catheter was advanced intothe portal vein which was confirmed by contrast injection. A markingpigtail catheter was then advanced into the portal vein and subsequentlyinto the splenic vein where digital subtraction venograms were performed.Simultaneous portal and hepatic venography was done to measure the lengthof thetranshepatic tract. Pre- TIPS pressures were measured in the portalvein and right atrium. The catheter was exchanged over an extra-stiffguidewire for a 6 mm balloon which were used to pre-dilate the parenchymaltract. A long sheath was advanced into the portal vein and through this a 8 cm - 2cm Viatorr stent was advanced and deployed. The stent graft was dilatedusing an 8 mm balloon. A pigtail catheter was then advanced into the portalvein for post-TIPS venography and pressure measurements. Splenic venography demonstrated a patent splenic vein with a large leftgastric vein supplying gastroesophageal variceal complex. Technicallysuccessful catheterization and subsequent embolization of the left gastricvein and its branches was performed using a combination of Gelfoam andcoils. Venography also demonstrated varices arising from the short gastricvein supplying gastrosplenic varices. Technically successfulcatheterization and subsequent embolization of ?the short gastric veincomplex and its branches was performed using a combination of Gelfoam andcoils. Following embolization, the cathetersand sheaths were subsequently removedand the patient tolerated the procedure well. ESTIMATED BLOOD LOSS: Less than 50 mL. CONDITION: Stable. DISCHARGED TO: MICU. FINDINGS: 1. ?Initial ultrasound of the access vein showed a patent right internaljugular vein. 2. ?Middle hepatic venogram demonstrates a patent middle hepatic vein withconventional anatomy. 3. ?Technically successful placement of a transjugular intrahepaticportosystemic shunt between the middle hepatic vein and the left portalvein using a 8-2 cm Viatorr stent dilated to 8 mm.4. ?Technically successful antegrade embolization of the left gastric veinsupplying gastroesophageal variceal complex as well as the short gastricvein supplying gastrosplenic variceal complex using coils and Gelfoam.5. ?Pre TIPS placement, the portosystemicgradient was 19 mmHg (PoralPressure 31 mmHg, Right Atrial Pressure 12 mmHg)6. ?Post TIPS placement the portosystemic gradient was 11 mmHg. (Portalpressure 30 mmHg right atrial pressure 19 mmHg).[facility]END[facility] PROCEDURE [id number] 13:09:15Ordered by an unspecified provider.[facility] PROCEDURE [id number] 13:09:15Ordered by an unspecified provider.[facility] BranchEND[facility] PROCEDURE [id number] 13:09:15Ordered by an unspecified provider.[facility] PROCED[facility] [id number] 13:09:15Ordered by an unspecified provider.[facility] GLUCOSE (AUTOMATED)2024-02-15 13:01:08* Test Item Value Reference Range Interpretation Comme nts POCT GLU (test code = 0517081810) 191 mg/dL 70-110 H Lab Interpretation (test cod e = 45256-9) Abnormal [facility] GLUCOSE (AUTOMATED)2024-02-15 00:49:25* Test Item Value Reference Range Interpretation Comme [facility] POCT GLU (test code = 6783742567) 165 mg/dL 70-110 H Lab Interpretation (test cod e = 00955-2) Abnormal [facility] Texas[facility] [id number] 22:01:54* Test Item Value Reference Range Interpretation Comme [facility] Blood Culture-Aerobic (test code = 78710-3) No organisms isolated No growth Previous preliminary verified result was Culture In Progress on 02/09/2024 at 2000 CDTPrevious preliminary verified result was No growth at 24 hours on 02/10/2024 at 1701 CDTPrevious preliminary verified result was No growth at 48 hours on 02/11/2024 at 170 CDTPrevious preliminary verified result was No growth at 72 hours on 02/12/2024 at 170 CD Blood Culture-Anaerobic (test code = 83560-6) No organisms isolated No growth Previous preliminary verified result was Culture In Progress on 02/09/2024 at 2000 CDTPrevious preliminary verified result was No growth at 24 hours on 02/10/2024 at 170 CDTPrevious preliminary verified result was No growth at 48 hours on 02/11/2024 at 170 CDTPrevious preliminary verified result was No growth at 72 hours on 02/12/2024 at 1701 CDT Lab Interpretation (test code = 97346-3) Normal [facility] GLUCOSE (AUTOMATED)2024-02-14 21:39:21* Test Item Value Reference Range Interpretation Comme nts POCT GLU (test code = 6549370078) 203 mg/dL 70-110 H Lab Interpretation (test cod e = 88448-5) Abnormal [facility] GLUCOSE (AUTOMATED)2024-02-14 17:06:59* Test Item Value Reference Range Interpretation Comme [facility] POCT GLU (test code = 8209350684) 209 mg/dL 70-110 H Lab Interpretation (test cod e = 17463-6) [facility]normal [facility]2024-02-14 12:59:15* Test Item Value Reference Range Interpretation Comme nts POCT GLU (test code = 1001779972) 177 mg/dL 70-110 H Lab Interpretation (test cod e = 30695-3) Abnormal [facility] with [id number] 11:18:37* Test Item Value Reference Range Interpretation Comme [facility] WBC (test code = 6690-2) 12.26 4.20-10.70 H RBC (test code = 789-8) 3.13 4.26-5.52 L HGB (test code = 718-7) 8.6 g/dL 12.2-16.4 L HCT (test code = 4544-3) 26.1 % 38.4-49.3 L MCV (test code = 787-2) 83.4 fL 81.7-95.6 MCH (test code = 785-6) 27.5 pg 26.1-32.7 MCHC (test code = 786-4) 33.0 g/dL 31.2-35.0 RDW-SD (test code = 91598-4) 42.6 fL 38.5-51.6 RDW-CV (test code = 788-0) 14.6 % 12.1-15.4 PLT (test code = 777-3) 114 150-328 L MPV (test code = 95318-2) 11.3 fL 9.8-13.0 IPF % (test code = 2006724858) 5.4 % 1.2-10.7 Platelet count measured by fluorescence method. NRBC/100 WBC (test code = 9304773188) 0.0 0.0-10.0 NRBC x10^3 (test code = 3624758934) See_Comment [Automated messa ge] The system which generated this result transmitted reference range: 10*3/?L. The reference range was not used to interpret this result as normal/abnormal. GRAN MAT (NEUT) % (test code = 770-8) 83.3 % IMM GRAN % (test code = 6339257569) 0.70 % LYMPH % (test code = 736-9) 8.4 % MONO % (test code = 5905-5) 7.3 % EOS % (test code = 713-8) 0.1 % BASO % (test code = 706-2) 0.2 % GRAN MAT x10^3(ANC) (test code = 6186745992) 10.22 10*3/uL 1.99-6.95 H IMM GRAN x10^3 (test code = 8029778080) 0.08 10*3/uL 0.00-0.06 H LYMPH x10^3 (test code = 731-0) 1.03 10*3/uL 1.09-3.23 L MONO x10^3 (test code = 742-7) 0.89 10*3/uL 0.36-1.02 EOS x10^3 (test code = 711-2) 0.06-0.53 L BASO x10^3 (test code = 704-7) 0.03 10*3/uL 0.01-0.09 Lab Interpretation (test code = 96429-5) Abnormal [facility] Texas[facility] with [id number] 11:18:37* Test Item Value Reference Range Interpretation Comme nts WBC (test code = 6690-2) 12.26 4.20-10.70 H RBC (test code = 789-8) 3.13 4.26-5.52 L HGB (test code = 718-7) 8.6 g/dL 12.2-16.4 L HCT (test code = 4544-3) 26.1 % 38.4-49.3 L MCV (test code = 787-2) 83.4 fL 81.7-95.6 MCH (test code = 785-6) 27.5 pg 26.1-32.7 MCHC (test code = 786-4) 33.0 g/dL 31.2-35.0 RDW-SD (test code = 08270-0) 42.6 fL 38.5-51.6 RDW-CV (test code = 788-0) 14.6 % 12.1-15.4 PLT (test code = 777-3) 114 150-328 L MPV (test code = 84702-3) 11.3 fL 9.8-13.0 IPF % (test code = 8443032598) 5.4 % 1.2-10.7 Platelet count measured by fluorescence method. NRBC/100 WBC (test code = 3576773786) 0.0 0.0-10.0 NRBC x10^3 (test code = 3042792148) See_Comment [Automated messa ge] The system which generated this result transmitted reference range: 10*3/?L. The reference range was not used to interpret this result as normal/abnormal. GRAN MAT (NEUT) % (test code = 770-8) 83.3 % IMM GRAN % (test code = 7171790777) 0.70 % LYMPH % (test code = 736-9) 8.4 % MONO % (test code = 5905-5) 7.3 % EOS % (test code = 713-8) 0.1 % BASO % (test code = 706-2) 0.2 % GRAN MAT x10^3(ANC) (test code = 7565845192) 10.22 10*3/uL 1.99-6.95 H IMM GRAN x10^3 (test code = 6901003480) 0.08 10*3/uL 0.00-0.06 H LYMPH x10^3 (test code = 731-0) 1.03 10*3/uL 1.09-3.23 L MONO x10^3 (test code = 742-7) 0.89 10*3/uL 0.36-1.02 EOS x10^3 (test code = 711-2) 0.06-0.53 L BASO x10^3 (test code = 704-7) 0.03 10*3/uL 0.01-0.09 Lab Interpretation (test code = 41539-4) Abnormal [facility] with [id number] 11:18:37* Test Item Value Reference Range Interpretation Comme nts WBC (test code = 6690-2) 12.26 4.20-10.70 H RBC (test code = 789-8) 3.13 4.26-5.52 L HGB (test code = 718-7) 8.6 g/dL 12.2-16.4 L HCT (test code = 4544-3) 26.1 % 38.4-49.3 L MCV (test code = 787-2) 83.4 fL 81.7-95.6 MCH (test code = 785-6) 27.5 pg 26.1-32.7 MCHC (test code = 786-4) 33.0 g/dL 31.2-35.0 RDW-SD (test code = 93598-9) 42.6 fL 38.5-51.6 RDW-CV (test code = 788-0) 14.6 % 12.1-15.4 PLT (test code = 777-3) 114 150-328 L MPV (test code = 13011-7) 11.3 fL 9.8-13.0 IPF % (test code = 2918799602) 5.4 % 1.2-10.7 Platelet count measured by fluorescence method. NRBC/100 WBC (test code = 2119624188) 0.0 0.0-10.0 NRBC x10^3 (test code = 1359382068) See_Comment [Automated messa ge] The system which generated this result transmitted reference range: 10*3/?L. The reference range was not used to interpret this result as normal/abnormal. GRAN MAT (NEUT) % (test code = 770-8) 83.3 % IMM GRAN % (test code = 2310923247) 0.70 % LYMPH % (test code = 736-9) 8.4 % MONO % (test code = 5905-5) 7.3 % EOS % (test code = 713-8) 0.1 % BASO % (test code = 706-2) 0.2 % GRAN MAT x10^3(ANC) (test code = 8108584846) 10.22 10*3/uL 1.99-6.95 H IMM GRAN x10^3 (test code = 3930444836) 0.08 10*3/uL 0.00-0.06 H LYMPH x10^3 (test code = 731-0) 1.03 10*3/uL 1.09-3.23 L MONO x10^3 (test code = 742-7) 0.89 10*3/uL 0.36-1.02 EOS x10^3 (test code = 711-2) 0.06-0.53 L BASO x10^3 (test code = 704-7) 0.03 10*3/uL 0.01-0.09 Lab Interpretation (test code = 21169-8) Abnormal [facility] with Bwwk3641-21-04 11:18:37* Test Item Value Reference Range Interpretation Comme nts WBC (test code = 6690-2) 12.26 4.20-10.70 H RBC (test code = 789-8) 3.13 4.26-5.52 L HGB (test code = 718-7) 8.6 g/dL 12.2-16.4 L HCT (test code = 4544-3) 26.1 % 38.4-49.3 L MCV (test code = 787-2) 83.4 fL 81.7-95.6 MCH (test code = 785-6) 27.5 pg 26.1-32.7 MCHC (test code = 786-4) 33.0 g/dL 31.2-35.0 RDW-SD (test code = 55658-5) 42.6 fL 38.5-51.6 RDW-CV (test code = 788-0) 14.6 % 12.1-15.4 PLT (test code = 777-3) 114 150-328 L MPV (test code = 81805-5) 11.3 fL 9.8-13.0 IPF % (test code = 6458033280) 5.4 % 1.2-10.7 Platelet count measured by fluorescence method. NRBC/100 WBC (test code = 8452109672) 0.0 0.0-10.0 NRBC x10^3 (test code = 5362216616) See_Comment [Automated messa ge] The system which generated this result transmitted reference range: 10*3/?L. The reference range was not used to interpret this result as normal/abnormal. GRAN MAT (NEUT) % (test code = 770-8) 83.3 % IMM GRAN % (test code = 0392131851) 0.70 % LYMPH % (test code = 736-9) 8.4 % MONO % (test code = 5905-5) 7.3 % EOS % (test code = 713-8) 0.1 % BASO % (test code = 706-2) 0.2 % GRAN MAT x10^3(ANC) (test code = 7700536655) 10.22 10*3/uL 1.99-6.95 H IMM GRAN x10^3 (test code = 9777963234) 0.08 10*3/uL 0.00-0.06 H LYMPH x10^3 (test code = 731-0) 1.03 10*3/uL 1.09-3.23 L MONO x10^3 (test code = 742-7) 0.89 10*3/uL 0.36-1.02 EOS x10^3 (test code = 711-2) 0.06-0.53 L BASO x10^3 (test code = 704-7) 0.03 10*3/uL 0.01-0.09 Lab Interpretation (test code = 31950-7) Abnormal [facility] Metabolic Panel (NA, K, CL, CO2, GLUCOSE, BUN, CREATININE, CA)2024-02-14 10:30:47* Test Item Value Reference Range Interpretation Comme nts NA (test code = 6008956535) 134 mmol/L 135-145 L K (test code = 9442363237) 3.9 mmol/L 3.5-5.0 CL (test code = 9070836074) 104 mmol/L 98-108 CO2 TOTAL (test code = 6129135713) 26 mmol/L 23-31 AGAP (test code = 5307489136) 4 2-16 BUN (test code = 9125674967) 7 mg/dL 7-23 GLUCOSE (test code = 3569149946) 130 mg/dL 70-110 H CREATININE (test code = 2160-0) 0.84 mg/dL 0.60-1.25 CALCIUM (test code = 5984498237) 8.2 mg/dL 8.6-10.6 L eGFR (test code = 18801-0) 99.2 mL/min/1.73m2 CKD-EPI eGFR (2020). Assuming creatinine has been stable day-to-day for at least three months, the eGFR indicates Category G1 (>= 90 mL/min/1.73 m2) Lab Interpretation (test code = 85998-7) Abnormal [facility] Texas[facility]esium2024-06-02 10:30:47* Test Item Value Reference Range Interpretation Comme nts MAGNESIUM (test code = 3477922872) 1.8 mg/dL 1.7-2.4 Lab Interpretation (test cod e = 32204-1) Normal [facility] GLUCOSE (AUTOMATED)2024-02-14 01:06:22* Test Item Value Reference Range Interpretation Comme nts POCT GLU (test code = 0625987297) 168 mg/dL 70-110 H Lab Interpretation (test cod e = 94083-0) Abnormal [facility] GLUCOSE (AUTOMATED)2024-02-13 21:12:05* Test Item Value Reference Range Interpretation Comme nts POCT GLU (test code = 5398466730) 133 mg/dL 70-110 H Lab Interpretation (test cod e = 94285-2) Abnormal [facility] Texas[facility]terial Jwxg8480-74-97 15:10:00Dick Arias MD ? ? 02/13/2024 10:33 AM Arterial Line Date/Time: 02/13/2024 10:10 AM Performed by: Dick Arias MDArterial Line Placement: ?Ultrasound-Guided: surface landmarks ? ?Patient Location: ?OR?Indication: continuous blood pressure monitoring and blood sampling needed ?Staff: ?Supervising Anesthesiologist: ?Kurtis Mckinley DO ?Resident: ?Dick Arias MDProcedure Detail: ?Catheter Size: ?20 gauge ?Catheter Length: ?1 and 1/4 inch ?Catheter Type: ?Arrow ?Seldinger Technique?: Yes ? ?Laterality: ?Left ?Site: ?Radial artery ?Line Secured: ?Tegaderm and biopatch ?Preparation: ?Biopatch appliedEvents: ?Events: ?Patient tolerated procedure well with no complications [facility] BranchAr[facility]ial Radv9635-95-68 15:10:00Dick Arias MD ? ? 02/13/2024 10:33 AM Arterial Line Date/Time: 02/13/2024 10:10 AM Performed by: Dick Arias MDArterial Line Placement: ?Ultrasound-Guided: surface landmarks ? ?Patient Location: ?OR?Indication: continuous blood pressure monitoring and blood sampling needed ?Staff: ?Supervising Anesthesiologist: ?Kurtis Mckinley, DO ?Resident: ?Dick Arias MDProcedure Detail: ?Catheter Size: ?20 gauge ?Catheter Length: ?1 and 1/4 inch ?Catheter Type: ?Arrow ?Seldinger Technique?: Yes ? ?Laterality: ?Left ?Site: ?Radial artery ?Line Secured: ?Tegaderm and biopatch ?Preparation: ?Biopatch appliedEvents: ?Events: ?Patient tolerated procedure well with no complications [facility] BranchAr[facility]ial Wvty2006-40-20 15:10:00Dick Arias MD ? ? 02/13/2024 10:33 AM Arterial Line Date/Time: 02/13/2024 10:10 AM Performed by: Dick Arias MDArterial Line Placement: ?Ultrasound-Guided: surface landmarks ? ?Patient Location: ?OR ?Indication: continuous blood pressure monitoring and blood sampling needed ?Staff: ?Supervising Anesthesiologist: ?Kurtis Mckinley DO ?Resident: ?Dick Arias MDProcedure Detail: ?Catheter Size: ?20 gauge ?Catheter Length: ?1 and 1/4 inch ?Catheter Type: ?Arrow ?Seldinger Technique?: Yes ? ?Laterality: ?Left ?Site: ?Radial artery ?Line Secured: ?Tegaderm and biopatch ?Preparation: ?Biopatch appliedEvents: ?Events: ?Patient tolerated procedure well with no complications [facility] Jsft9791-31-81 15:10:00Dick Arias MD ? ? 02/13/2024 10:33 AM Arterial Line Date/Time: 02/13/2024 10:10 AM Performed by: Dick Arias MDArterial Line Placement: ?Ultrasound-Guided: surface landmarks ? ?Patient Location: ?OR?Indication: continuous blood pressure monitoring and blood sampling needed ?Staff: ?Supervising Anesthesiologist: ?Kurtis Mckinley DO ?Resident: ?Dick Arias MDProcedure Detail: ?Catheter Size: ?20 gauge ?Catheter Length: ?1 and 1/4 inch ?Catheter Type: ?Arrow ?Seldinger Technique?: Yes ? ?Laterality: ?Left ?Site: ?Radial artery ?Line Secured: ?Tegaderm and biopatch ?Preparation: ?Biopatch appliedEvents: ?Events: ?Patient tolerated procedure well with no complications [facility] HlrvyeBiqadlzgda4074-24-95 15:06:00Dick Arias MD ? ? 02/13/2024 10:24 AMIntubationDate/Time: 02/13/2024 10:06 AMUrgency: elective Airway not difficult General Information and Staff Patient location during procedure: ORPerformed: resident/SCRIBING MACHINE OPERATOR Performed by: Dick Arias MDAuthorized by: Kurtis Mckinley DO ? Indications and Patient ConditionIndications for airway management: anesthesiaSpontaneous ventilation: presentSedation level: deepPreoxygenated: yesPatient position: sniffingMILS maintained throughoutMask difficulty assessment: 0 - not attempted Final Airway DetailsFinal airway type: endotracheal airway Successful airway: ETTCuffed: yes Successful intubation technique: direct laryngoscopyFacilitating devices/methods: intubating styletEndotracheal tube insertion site: oralBlade: MillerBlade size: #2ETT size (mm): 8.0Cormack-Lehane Classification: grade I - full view of glottisPlacement verified by: chest auscultation and capnometry Measured from: gumsNumber of attempts at approach: 1Ventilation between attempts: noneNumber of other approaches attempted: 0 Additional CommentsSmooth, atraumatic, dentition and lips unchanged from pre-op.[facility] 2024-02-13 15:06:00Dick Arias MD ? ? 02/13/2024 10:24 AMIntubationDate/Time: 02/13/2024 10:06 AMUrgency: elective Airway not difficult General Information and Staff Patient location during procedure: ORPerformed: resident/SCRIBING MACHINE OPERATOR Performed by: Dick Arias MDAuthorized by: Kurtis Mckinley DO ? Indications and Patient ConditionIndications for airway management: anesthesiaSpontaneous ventilation: presentSedation level: deepPreoxygenated: yesPatient position: sniffingMILS maintained throughoutMask difficulty assessment: 0 - not attempted Final Airway DetailsFinal airway type: endotracheal airway Successful airway: ETTCuffed: yes Successful intubation technique: direct laryngoscopyFacilitating devices/methods: intubating styletEndotracheal tube insertion site: oralBlade: MillerBlade size: #2ETT size (mm): 8.0Cormack-Lehane Classification: grade I - full view of glottisPlacement verified by: chest auscultation and capnometry Measured from: gumsNumber of attempts at approach: 1Ventilation between attempts: noneNumber of other approaches attempted: 0 Additional CommentsSmooth, atraumatic, dentition and lips unchanged from pre-op.[facility] MenxaqAfszqwqzru8514-55-15 15:06:00Dick Arias MD ? ? 02/13/2024 10:24 AMIntubationDate/Time: 02/13/2024 10:06 AMUrgency: elective Airway not difficult General Information and Staff Patient location during procedure: ORPerformed: resident/SCRIBING MACHINE OPERATOR Performed by: Dick Arias MDAuthorized by: Kurtis Mckinley DO ? Indications and Patient ConditionIndications for airway management: anesthesiaSpontaneous ventilation: presentSedation level: deepPreoxygenated: yesPatient position: sniffingMILS maintained throughoutMask difficulty assessment: 0 - not attempted Final Airway DetailsFinal airway type: endotracheal airway Successful airway: ETTCuffed: yes Successful intubation technique: direct laryngoscopyFacilitating devices/methods: intubating styletEndotracheal tube insertion site: oralBlade: MillerBlade size: #2ETT size (mm): 8.0Cormack-Lehane Classification: grade I - full view of glottisPlacement verified by: chest auscultation and capnometry Measured from: gumsNumber of attempts at approach: 1Ventilation between attempts: noneNumber of other approaches attempted: 0 Additional CommentsSmooth, atraumatic, dentition and lips unchanged from pre-op.[facility] TexasInt[facility] 2024-02-13 15:06:00Dick Arias MD ? ? 02/13/2024 10:24 AMIntubationDate/Time: 02/13/2024 10:06 AMUrgency: elective Airway not difficult General Information and Staff Patient location during procedure: ORPerformed: resident/SCRIBING MACHINE OPERATOR Performed by: Dick Arias MDAuthorized by: Kurtis Mckinley DO ? Indications and Patient ConditionIndications for airway management: anesthesiaSpontaneous ventilation: presentSedation level: deepPreoxygenated: yesPatient position: sniffingMILS maintained throughoutMask difficulty assessment: 0 - not attempted Final Airway DetailsFinal airway type: endotracheal airway Successful airway: ETTCuffed: yes Successful intubation technique: direct laryngoscopyFacilitating devices/methods: intubating styletEndotracheal tube insertion site: oralBlade: MillerBlade size: #2ETT size (mm): 8.0Cormack-Lehane Classification: grade I - full view of glottisPlacement verified by: chest auscultation and capnometry Measured from: gumsNumber of attempts at approach: 1Ventilation between attempts: noneNumber of other approaches attempted: 0 Additional CommentsSmooth, atraumatic, dentition and lips unchanged from pre-op.[facility] GLUCOSE (AUTOMATED)2024-02-13 12:49:16* Test Item Value Reference Range Interpretation Comme nts POCT GLU (test code = 5790587185) 147 mg/dL 70-110 H Lab Interpretation (test cod e = 91280-0) Abnormal [facility] INVESTIGATION Mzimmjk8696-88-49 10:59:09 * Test Item Value Reference Range Interpretation Comme nts ABO & RH (test code = 20) A Negative Performed at [facility] Laboratory Services - [address] Free: [phone] No. [id number] [facility] INVESTIGATION Dlthtxx8907-15-32 10:59:09 * Test Item Value Reference Range Interpretation Comme nts ABO & RH (test code = 20) A Negative Performed at [facility] Laboratory Services - [address] Free: [phone] No. [id number] [facility] INVESTIGATION Xauhzoa7402-78-73 10:59:09 * Test Item Value Reference Range Interpretation Comme nts ABO & RH (test code = 20) A Negative Performed at [facility] Laboratory [facility] - [address] Free: [phone] No. [id number] [facility] INVESTIGATION Vdtafsn9684-96-23 10:59:09 * Test Item Value Reference Range Interpretation Comme nts ABO & RH (test code = 20) A Negative Performed at [facility] Laboratory [place] [address]Toll Free: [phone] No. [id number] [facility] GLUCOSE (AUTOMATED)2024-02-13 00:55:27* Test Item Value Reference Range Interpretation Comme nts POCT GLU (test code = 8144405684) 165 mg/dL 70-110 H Lab Interpretation (test cod e = 74031-4) Abnormal [facility] GLUCOSE (AUTOMATED)2024-02-12 22:22:01* Test Item Value Reference Range Interpretation Comme nts POCT GLU (test code = 9275060680) 216 mg/dL 70-110 H Lab Interpretation (test cod e = 42358-3) Abnormal [facility] GLUCOSE (AUTOMATED)2024-02-12 16:21:21* Test Item Value Reference Range Interpretation Comme nts POCT GLU (test code = 1391386286) 168 mg/dL 70-110 H Lab Interpretation (test cod e = 70056-8) Abnormal [facility] GLUCOSE (AUTOMATED)2024-02-12 16:21:21* Test Item Value Reference Range Interpretation Comme nts POCT GLU (test code = 3855929773) 168 mg/dL 70-110 H Lab Interpretation (test cod e = 59961-2) Abnormal [facility] GLUCOSE (AUTOMATED)2024-02-12 14:28:20* Test Item Value Reference Range Interpretation Comme nts POCT GLU (test code = 4664670535) 233 mg/dL 70-110 H Lab Interpretation (test cod e = 43845-6) Abnormal [facility] GLUCOSE (AUTOMATED)2024-02-12 14:28:20* Test Item Value Reference Range Interpretation Comme nts POCT GLU (test code = 0279058747) 233 mg/dL 70-110 H Lab Interpretation (test cod e = 93816-2) Abnormal [facility] GLUCOSE (AUTOMATED)2024-02-12 01:19:33* Test Item Value Reference Range Interpretation Comme nts POCT GLU (test code = 2704068512) 164 mg/dL 70-110 H Lab Interpretation (test cod e = 38869-3) Abnormal [facility] GLUCOSE (AUTOMATED)2024-02-12 01:19:33* Test Item Value Reference Range Interpretation Comme nts POCT GLU (test code = 7906276119) 164 mg/dL 70-110 H Lab Interpretation (test cod e = 00733-4) Abnormal [facility] GLUCOSE (AUTOMATED)2024-02-11 22:13:05* Test Item Value Reference Range Interpretation Comme nts POCT GLU (test code = 4907550413) 191 mg/dL 70-110 H Lab Interpretation (test cod e = 19330-2) Abnormal [facility] GLUCOSE (AUTOMATED)2024-02-11 22:13:05* Test Item Value Reference Range Interpretation Comme nts POCT GLU (test code = 3632530984) 191 mg/dL 70-110 H Lab Interpretation (test cod e = 63558-9) Abnormal [facility] GLUCOSE (AUTOMATED)2024-02-11 01:13:12* Test Item Value Reference Range Interpretation Comme nts POCT GLU (test code = 0078451794) 194 mg/dL 70-110 H Lab Interpretation (test cod e = 06923-5) Abnormal [facility] GLUCOSE (AUTOMATED)2024-02-11 01:13:12* Test Item Value Reference Range Interpretation Comme nts POCT GLU (test code = 3459507602) 194 mg/dL 70-110 H Lab Interpretation (test cod e = 82284-1) Abnormal [facility] GLUCOSE (AUTOMATED)2024-02-10 22:48:49* Test Item Value Reference Range Interpretation Comme nts POCT GLU (test code = 1066032338) 279 mg/dL 70-110 H Lab Interpretation (test cod e = 01418-3) Abnormal [facility] GLUCOSE (AUTOMATED)2024-02-10 22:48:49* Test Item Value Reference Range Interpretation Comme nts POCT GLU (test code = 5646957539) 279 mg/dL 70-110 H Lab Interpretation (test cod e = 63973-4) Abnormal [facility] GLUCOSE (AUTOMATED)2024-02-10 16:49:23* Test Item Value Reference Range Interpretation Comme nts POCT GLU (test code = 8650033868) 279 mg/dL 70-110 H Lab Interpretation (test cod e = 65951-8) Abnormal [facility] GLUCOSE (AUTOMATED)2024-02-10 16:49:23* Test Item Value Reference Range Interpretation Comme nts POCT GLU (test code = 0934611599) 279 mg/dL 70-110 H Lab Interpretation (test cod e = 72679-4) Abnormal [facility] GLUCOSE (AUTOMATED)2024-02-10 12:31:49* Test Item Value Reference Range Interpretation Comme nts POCT GLU (test code = 5420844091) 170 mg/dL 70-110 H Lab Interpretation (test cod e = 54572-0) Abnormal [facility] GLUCOSE (AUTOMATED)2024-02-10 12:31:49* Test Item Value Reference Range Interpretation Comme nts POCT GLU (test code = 1406860117) 170 mg/dL 70-110 H Lab Interpretation (test cod e = 98855-5) Abnormal [facility] GLUCOSE (AUTOMATED)2024-02-10 01:49:51* Test Item Value Reference Range Interpretation Comme nts POCT GLU (test code = 3579353185) 170 mg/dL 70-110 H Lab Interpretation (test cod e = 97684-5) Abnormal [facility] GLUCOSE (AUTOMATED)2024-02-10 01:49:51* Test Item Value Reference Range Interpretation Comme nts POCT GLU (test code = 3059656823) 170 mg/dL 70-110 H Lab Interpretation (test cod e = 85356-1) [facility] [id number] 22:56:58EXAM: XR CHEST 1 VW HISTORY: 63 years-old Male with Infectious work up, patient presented withbloody vomiting since midnight. . TECHNIQUE: Single frontal view of the chest. COMPARISON: Chest radiograph dated 12/16/2023, CT abdomen pelvis dated02/09/2024 FINDINGS: Lungs and pleura: Normal lung volumes.Band atelectasis in the left lowerlung. Unremarkable pleural/pleural spaces. Heart/Mediastinum: Thecardiac silhouette appears normal. Unfoldeddescending thoracic aorta Bones and soft tissues: No osseous abnormality is visualized.[facility] [id number] 22:56:58EXAM: XR CHEST 1 VW HISTORY: 63 years-old Male with Infectious work up, patient presented withbloody vomiting since midnight. . TECHNIQUE: Single frontal view of the chest. COMPARISON: Chest radiograph dated 12/16/2023, CT abdomen pelvis dated02/09/2024 FINDINGS: Lungs and pleura: Normal lung volumes.Band atelectasis in the left lowerlung. Unremarkable pleural/pleural spaces. Heart/Mediastinum: Thecardiac silhouette appears normal. Unfoldeddescending thoracic aorta Bones and soft tissues: No osseous abnormality is visualized.[facility] GLUCOSE (AUTOMATED) 2024-02-09 21:17:09* Test Item Value Reference Range Interpretation Comme nts POCT GLU (test code = 7093208428) 139 mg/dL 70-110 H Lab Interpretation (test cod e = 50597-4) Abnormal [facility] GLUCOSE (AUTOMATED)2024-02-09 21:17:09* Test Item Value Reference Range Interpretation Comme [facility] POCT GLU (test code = 7220756251) 139 mg/dL 70-110 H Lab Interpretation (test cod e = 82772-9) Abnormal [facility] Onlkvjif1721-28-82 20:11:19* Test Item Value Reference Range Interpretation Comme nts HBsAB (test code = 3532100610) Negative HBsAb Semi-Quantitative (test code = 7606013621) 0.00 mIU/mL SIMIN (test code = SIMIN) Interpretation: ?Hepatitis B Surface Antibody ? Negative - Patient is considered to be not immune to infection with HBV. ? ? Positive - Anti-HBs detected at greater than or equal to 12 mIU/mL. ?Patient is considered to be immune to infection with HBV. [facility] Xyponeja7872-61-42 20:11:19* Test Item Value Reference Range Interpretation Comme nts HBsAB (test code = 6167865202) Negative HBsAb Semi-Quantitative (test code = 1308664979) 0.00 mIU/mL SIMIN (test code = SIMIN) Interpretation: ?Hepatitis B Surface Antibody ? Negative - Patient is considered to be not immune to infection with HBV. ? ? Positive - Anti-HBs detected at greater than or equal to 12 mIU/mL. ?Patient is considered to be immune to infection with HBV. ? [facility] Rkhpbpno4276-10-71 20:11:19* Test Item Value Reference Range Interpretation Comme nts HBsAB (test code = 7265210844) Negative HBsAb Semi-Quantitative (test code = 7846437108) 0.00 mIU/mL SIMIN (test code = SIMIN) Interpretation: ?Hepatitis B Surface Antibody ? Negative - Patient is considered to be not immune to infection with HBV. ? ? Positive - Anti-HBs detected at greater than or equal to 12 mIU/mL. ?Patient is considered to be immune to infection with HBV. ? [facility] Ahnjuryr9593-86-72 20:11:19* Test Item Value Reference Range Interpretation Comme nts HBsAB (test code = 9020334681) Negative HBsAb Semi-Quantitative (test code = 4414330393) 0.00 mIU/mL SIMIN (test code = SIMIN) Interpretation: ?Hepatitis B Surface Antibody ? Negative - Patient is considered to be not immune to infection with HBV. ? ? Positive - Anti-HBs detected at greater than or equal to 12 mIU/mL. ?Patient is considered to be immune to infection with HBV. ? [facility] Fdqezmmp6513-28-11 20:11:19* Test Item Value Reference Range Interpretation Comme nts HBsAB (test code = 6304092142) Negative HBsAb Semi-Quantitative (test code = 0964779151) 0.00 mIU/mL SIMIN (test code = SIMIN) Interpretation: ?Hepatitis B Surface Antibody ? Negative - Patient is considered to be not immune to infection with HBV. ? ? Positive - Anti-HBs detected at greater than or equal to 12 mIU/mL. ?Patient is considered to be immune to infection with HBV. ? [facility] Qbratwds3214-33-56 20:11:19* Test Item Value Reference Range Interpretation Comme nts HBsAB (test code = 0491221509) Negative HBsAb Semi-Quantitative (test code = 3380379229) 0.00 mIU/mL SIMIN (test code = SIMIN) Interpretation: ?Hepatitis B Surface Antibody ? Negative - Patient is considered to be not immune to infection with HBV. ? ? Positive - Anti-HBs detected at greater than or equal to 12 mIU/mL. ?Patient is considered to be immune to infection with HBV. ? [facility] Xivyjyg3924-35-93 19:54:00 * Test Item Value Reference Range Interpretation Comme nts HBsAg Semi-Quantitative (robyn t code = 5195-3) 0.11 Negative [facility] Qjmxrdk7099-83-15 19:54:00 * Test Item Value Reference Range Interpretation Comme nts HBsAg Semi-Quantitative (robyn t code = 5195-3) 0.11 Negative [facility] Ijddqga3858-62-36 19:54:00 * Test Item Value Reference Range Interpretation Comme nts HBsAg Semi-Quantitative (robyn t code = 5195-3) 0.11 Negative [facility] Sajnbfm1108-06-81 19:54:00 * Test Item Value Reference Range Interpretation Comme nts HBsAg Semi-Quantitative (robyn t code = 5195-3) 0.11 Negative [facility] Ptsnfxc8994-43-90 19:54:00 * Test Item Value Reference Range Interpretation Comme nts HBsAg Semi-Quantitative (robyn t code = 5195-3) 0.11 Negative [facility] Kaoqdsz6356-82-46 19:54:00 * Test Item Value Reference Range Interpretation Comme nts HBsAg Semi-Quantitative (robyn t code = 5195-3) 0.11 Negative [facility] GLUCOSE (AUTOMATED)2024-02-09 16:42:45* Test Item Value Reference Range Interpretation Comme nts POCT GLU (test code = 4504173893) 200 mg/dL 70-110 H Lab Interpretation (test cod e = 69421-6) Abnormal [facility] GLUCOSE (AUTOMATED)2024-02-09 16:42:45* Test Item Value Reference Range Interpretation Comme nts POCT GLU (test code = 5132499420) 200 mg/dL 70-110 H Lab Interpretation (test cod e = 79482-9) [facility]normal [facility]/GODNYT2614-32-26 15:30:13 EXAM: CT ABDOMEN AND PELVIS WITH AND WITHOUT CONTRAST; GI BLEEDING PROTOCOL CT ANGIOGRAM ABDOMEN/PELVIS HISTORY: 63 years-old; Male; GI bleed, lower COMPARISON: None TECHNIQUE AND FINDINGS: Multiphasic axial CT imaging from the level of thelung bases through the pubic symphysis was performed beforeand after theuncomplicated administration of intravenous Isovue contrast. Arterial,portal venous and delayed phase images as per GI protocol were obtained.Coronal and sagittal reconstructions were obtained. Auto mA and/oriterative reconstruction were used to reduce radiation dose. FINDINGS: LOWER THORAX: The lungs bases are clear. No cardiomegaly. LIVER: There is 2.5 cm linear hyperdensity of unknown clinical significanceat hepatic segment V. No focal hepatic lesions. The liver demonstratesdiffusely nodular contour, compatible with cirrhotic morphology. GALLBLADDER AND BILIARY TREE: No biliary ductal dilation. ?No gallbladderwall thickening. SPLEEN: The spleen is severely enlarged measuringabout 19.5 cm inlongitudinal length. PANCREAS: Mild diffuse peripancreatic edema is seen. ADRENAL GLANDS: No adrenal nodules. KIDNEYS: No hydronephrosis, stones, or masses. PERITONEUM AND RETROPERITONEUM: No free air or fluid. Mild generalizedmesenteric edema. LYMPH NODES: Enlarged peripancreatic or duodenal groove lymph nodemeasuring 2.5 x 2 cm (series #4 image 120). 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 Smallperigastric, perisplenic, mesenteric and paraesophageal varices. Smallhemorrhoids. No dilation or wall thickening. No accumulation of contrastwithin the bowel toindicate a site of acute gastrointestinal hemorrhage.No abnormally decreased enhancement of bowel wall on the portal venousphase to suspect ischemia. No dilation or wall thickening. Sigmoid colonicdiverticulosis is seen without evidence of acute diverticulitis. PELVIS/BLADDER: Bladder is unremarkable. Prostate measures about 5 cm intransverse at the level of femoral heads, which is mildly enlarged. VESSELS: Scattered calcified and noncalcified atherosclerotic plaques areseen in the abdominal aorta. Ulcerated plaque results in short segmentmoderate narrowing at the proximal left common iliac artery. BONES AND SOFT TISSUES: No suspicious lytic or sclerotic bony lesions.[facility]/[id number] 15:30:13EXAM: CT ABDOMEN AND PELVIS WITH AND WITHOUT CONTRAST; GI BLEEDING PROTOCOL CT ANGIOGRAM ABDOMEN/PELVIS HISTORY: 63 years- old; Male; GI bleed, lower COMPARISON: None TECHNIQUE AND FINDINGS: Multiphasic axial CT imaging from the level of thelung bases through the pubic symphysis was performed beforeand after theuncomplicated administration of intravenous Isovue contrast. Arterial,portal venous and delayed phase images as per GI protocol were obtained.Coronal and sagittal reconstructions were obtained. Auto mA and/oriterative reconstruction were used to reduce radiation dose. FINDINGS: LOWER THORAX: The lungs bases are clear. No cardiomegaly. LIVER: There is 2.5 cm linear hyperdensity of unknown clinical significanceat hepatic segment V. No focal hepatic lesions. The liver demonstratesdiffusely nodular contour, compatible with cirrhotic morphology. GALLBLADDER AND BILIARY TREE: No biliary ductal dilation. ?No gallbladderwall thickening. SPLEEN: The spleen is severely enlarged measuringabout 19.5 cm inlongitudinal length. PANCREAS: Mild diffuse peripancreatic edema is seen. ADRENAL GLANDS: No adrenal nodules. KIDNEYS: No hydronephrosis, stones, or masses. PERITONEUM AND RETROPERITONEUM: No free air or fluid. Mild generalizedmesenteric edema. LYMPH NODES: Enlarged peripancreatic or duodenal groove lymph nodemeasuring 2.5 x 2 cm (series #4 image 120). 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 Smallperigastric, perisplenic, mesenteric and paraesophageal varices. Smallhemorrhoids. No dilation or wall thickening. No accumulation of contrastwithin the bowel to indicate a site of acute gastrointestinal hemorrhage.No abnormally decreased enhancement of bowel wall on the portal venousphase to suspect ischemia. No dilation or wall thickening. Sigmoid colonicdiverticulosis is seen without evidence of acute diverticulitis. PELVIS/BLADDER: Bladder is unremarkable. Prostate measures about 5 cm intransverse at the level of femoral heads, which is mildly enlarged. VESSELS: Scattered calcified and noncalcified atherosclerotic plaques areseen in the abdominal aorta. Ulcerated plaque results in short segmentmoderate narrowing at the proximal left common iliac artery. BONES AND SOFT TISSUES: No suspicious lytic or sclerotic bony lesions.[facility] TexasCb without Boyt8460-37-11 14:15:56* Test Item Value Reference Range Interpretation Comme nts WBC (test code = 6690-2) 6.61 4.20-10.70 RBC (test code = 789-8) 3.08 4.26-5.52 L HGB (test code = 718-7) 8.5 g/dL 12.2-16.4 L HCT (test code = 4544-3) 27.1 % 38.4-49.3 L MCH (test code = 785-6) 27.6 pg 26.1-32.7 MCV (test code = 787-2) 88.0 fL 81.7-95.6 MCHC (test code = 786-4) 31.4 g/dL 31.2-35.0 PLT (test code = 777-3) 101 150-328 L MPV (test code = 10284-3) 12.3 fL 9.8-13.0 RDW-CV (test code = 788-0) 13.7 % 12.1-15.4 RDW-SD (test code = 09291-7) 43.5 fL 38.5-51.6 NRBC x10^3 (test code = 9240677926) See_Comment [Automated [employer]] The system which generated this result transmitted reference range: 10*3/?L. The reference range was not used to interpret this result as normal/abnormal. NRBC/100 WBC (test code = 4241504740) 0.0 0.0-10.0 IPF % (test code = 2793081394) Lab Interpretation (test code = 66243-3) Abnormal [facility] without Bbqu1534-96-37 14:15:56* Test Item Value Reference Range Interpretation Comme nts WBC (test code = 6690-2) 6.61 4.20-10.70 RBC (test code = 789-8) 3.08 4.26-5.52 L HGB (test code = 718-7) 8.5 g/dL 12.2-16.4 L HCT (test code = 4544-3) 27.1 % 38.4-49.3 L MCH (test code = 785-6) 27.6 pg 26.1-32.7 MCV (test code = 787-2) 88.0 fL 81.7-95.6 MCHC (test code = 786-4) 31.4 g/dL 31.2-35.0 PLT (test code = 777-3) 101 150-328 L MPV (test code = 51258-8) 12.3 fL 9.8-13.0 RDW-CV (test code = 788-0) 13.7 % 12.1-15.4 RDW-SD (test code = 21291-0) 43.5 fL 38.5-51.6 NRBC x10^3 (test code = 9082157825) See_Comment [[employer]] The system which generated this result transmitted reference range: 10*3/?L. The reference range was not used to interpret this result as normal/abnormal. NRBC/100 WBC (test code = 8241713630) 0.0 0.0-10.0 IPF % (test code = 6749526256) Lab Interpretation (test code = 39069-7) Abnormal [facility] Kufal7565-93-70 12:33:55* Test Item Value Reference Range Interpretation Comme nts FERRITIN (test code = 6462464855) 9.4 ng/mL 18.0-464.0 L SIMIN (test code = SIMIN) Biotin has been reported to cause a negative bias, interpret results relative to patient's use of biotin. Lab Interpretation (test code = 26104-2) Abnormal [facility] Gybww0395-18-17 12:33:55* Test Item Value Reference Range Interpretation Comme nts FERRITIN (test code = 6344370952) 9.4 ng/mL 18.0-464.0 L SIMIN (test code = SIMIN) Biotin has been reported to cause a negative bias, interpret results relative to patient's use of biotin. Lab Interpretation (test code = 17340-4) Abnormal [facility]2024-05-28 12:33:55* Test Item Value Reference Range Interpretation Comme nts FERRITIN (test code = 7160221989) 9.4 ng/mL 18.0-464.0 L SIMIN (test code = SIMIN) Biotin has been reported to cause a negative bias, interpret results relative to patient's use of biotin. Lab Interpretation (test code = 79510-1) Abnormal [facility] Fencl4256-25-68 12:33:55* Test Item Value Reference Range Interpretation Comme nts FERRITIN (test code = 5907689481) 9.4 ng/mL 18.0-464.0 L SIMIN (test code = SIMIN) Biotin has been reported to cause a negative bias, interpret results relative to patient's use of biotin. Lab Interpretation (test code = 51542-1) Abnormal [facility] Gaygv6463-70-31 12:33:55* Test Item Value Reference Range Interpretation Comme nts FERRITIN (test code = 5709210108) 9.4 ng/mL 18.0-464.0 L SIMIN (test code = SIMIN) Biotin has been reported to cause a negative bias, interpret results relative to patient's use of biotin. Lab Interpretation (test code = 78685-3) Abnormal [facility] TexasFerritin Tkbln0452-78-48 12:33:55* Test Item Value Reference Range Interpretation Comme nts FERRITIN (test code = 7456872180) 9.4 ng/mL 18.0-464.0 L SIMIN (test code = SIMIN) Biotin has been reported to cause a negative bias, interpret results relative to patient's use of biotin. Lab Interpretation (test code = 32709-6) Abnormal [facility] Fpkkb5120-35-37 12:08:32* Test Item Value Reference Range Interpretation Comme nts IRON (test code = 3943630772) 77 ug/dL 50-160 TIBC (test code = 9349644046) 324 ug/dL 250-410 % FE SAT (test code = 0987085445) 24 % 20-50 Lab Interpretation (test cod e = 93143-7) Normal [facility] Clexc0121-96-73 12:08:32* Test Item Value Reference Range Interpretation Comme nts IRON (test code = 9529095977) 77 ug/dL 50-160 TIBC (test code = 5953688715) 324 ug/dL 250-410 % FE SAT (test code = 4848673841) 24 % 20-50 Lab Interpretation (test cod e = 68626-3) Normal [facility]2024-05-28 12:08:32* Test Item Value Reference Range Interpretation Comme nts IRON (test code = 9742789745) 77 ug/dL 50-160 TIBC (test code = 9920171833) 324 ug/dL 250-410 % FE SAT (test code = 1172988293) 24 % 20-50 Lab Interpretation (test cod e = 08490-4) Normal [facility] Ddonu7059-45-50 12:08:32* Test Item Value Reference Range Interpretation Comme nts IRON (test code = 8890937267) 77 ug/dL 50-160 TIBC (test code = 3609110935) 324 ug/dL 250-410 % FE SAT (test code = 7312692918) 24 % 20-50 Lab Interpretation (test cod e = 59733-5) Normal [facility]2024-05-28 12:08:32* Test Item Value Reference Range Interpretation Comme nts IRON (test code = 1723737143) 77 ug/dL 50-160 TIBC (test code = 3848350977) 324 ug/dL 250-410 % FE SAT (test code = 4500735486) 24 % 20-50 Lab Interpretation (test cod e = 99886-3) Normal [facility]Iron Utysh9512-00-98 12:08:32* Test Item Value Reference Range Interpretation Comme nts IRON (test code = 0456907893) 77 ug/dL 50-160 TIBC (test code = 9843679037) 324 ug/dL 250-410 % FE SAT (test code = 2380154828) 24 % 20-50 Lab Interpretation (test cod e = 13414-9) Normal [facility] TexasProthrombin Time / [id number] 12:02:12* Test Item Value Reference Range Interpretation Comme nts PROTIME PATIENT (test code = 5964-2) 13.0 10.1-12.6 H INR (test code = 6301-6) 1.2 Normal INR <1.1; Warfarin Therapeutic range 2.0 to 3.0 or 2.5 to 3.5, depending upon the indications. Lab Interpretation (test code = 39201-4) Abnormal [facility] TexasaPTT2024-05-28 12:02:12* Test Item Value Reference Range Interpretation Comme nts APTT Patient (test code = 3173-2) 30 26-36 Lab Interpretation (test cod e = 68654-9) Normal [facility] TexasFibr[facility]ogen2024-05-28 12:02:12* Test Item Value Reference Range Interpretation Comme nts Fibrinogen (test code = 4175185374) 157 mg/dL 167-453 L Lab Interpretation (test cod e = 60652-5) Abnormal [facility] TexasProthrombin Time / [id number] 12:02:12* Test Item Value Reference Range Interpretation Comme nts PROTIME PATIENT (test code = 5964-2) 13.0 10.1-12.6 H INR (test code = 6301-6) 1.2 Normal INR <1.1; Warfarin Therapeutic range 2.0 to 3.0 or 2.5 to 3.5, depending upon the indications. Lab Interpretation (test code = 69388-8) [facility]:02[facility]12* Test Item Value Reference Range Interpretation Comme nts APTT Patient (test code = 3173-2) 30 -36 Lab Interpretation (test cod e = 66133-9) Normal [facility]2024-05-28 12:02:12* Test Item Value Reference Range Interpretation Comme nts Fibrinogen (test code = 3782650126) 157 mg/dL 167-453 L Lab Interpretation (test cod e = 81784-5) Abnormal [facility] TexasProthrombin Time / [id number] 12:02:12* Test Item Value Reference Range Interpretation Comme nts PROTIME PATIENT (test code = 5964-2) 13.0 10.1-12.6 H INR (test code = 6301-6) 1.2 Normal INR <1.1; Warfarin Therapeutic range 2.0 to 3.0 or 2.5 to 3.5, depending upon the indications. Lab Interpretation (test code = 29478-4) Abnormal [place] 67707024-05-28 12:02:12* Test Item Value Reference Range Interpretation Comme nts APTT Patient (test code = 3173-2) 30 -36 Lab Interpretation (test cod e = 55926-5) [facility] 12:02:12* Test Item Value Reference Range Interpretation Comme nts Fibrinogen (test code = 9839481876) 157 mg/dL 167-453 L Lab Interpretation (test cod e = 20567-7) Abnormal [facility]aPTT2024-05-28 12:02:12* Test Item Value Reference Range Interpretation Comme nts APTT Patient (test code = 3173-2) 30 -36 Lab Interpretation (test cod e = 43055-4) Normal [facility] TexasProthrombin Time / [id number] 12:02:12* Test Item Value Reference Range Interpretation Comme nts PROTIME PATIENT (test code = 5964-2) 13.0 10.1-12.6 H INR (test code = 6301-6) 1.2 Normal INR <1.1; Warfarin Therapeutic range 2.0 to 3.0 or 2.5 to 3.5, depending upon the indications. Lab Interpretation (test code = 37876-4) Abnormal [facility]2024-05-28 12:02:12* Test Item Value Reference Range Interpretation Comme nts Fibrinogen (test code = 5548061539) 157 mg/dL 167-453 L Lab Interpretation (test cod e = 90949-0) Abnormal [facility]2024-05-28 12:02:12* Test Item Value Reference Range Interpretation Comme nts Fibrinogen (test code = 7755022391) 157 mg/dL 167-453 L Lab Interpretation (test cod e = 99224-5) Abnormal [facility]aPTT2024-[facility]-28 12:02:12* Test Item Value Reference Range Interpretation Comme nts APTT Patient (test code = 3173-2) 30 26-36 Lab Interpretation (test cod e = 92952-7) Normal [facility] TexasProthrombin Time / IYE7421-01-26 12:02:12* Test Item Value Reference Range Interpretation Comme nts PROTIME PATIENT (test code = 5964-2) 13.0 10.1-12.6 H INR (test code = 6301-6) 1.2 Normal INR <1.1; Warfarin Therapeutic range 2.0 to 3.0 or 2.5 to 3.5, depending upon the indications. Lab Interpretation (test code = 12712-1) Abnormal [facility] TexasF[facility]ogen2024-05-28 12:02:12* Test Item Value Reference Range Interpretation Comme nts Fibrinogen (test code = 2270443226) 157 mg/dL 167-453 L Lab Interpretation (test cod e = 21766-9) Abnormal [facility] TexasHepatic Function Panel (ALB, T.PRO, BILI T, BU/BC, ALT, AST, ALK, PHOS)2024-02-09 11:59:09* Test Item Value Reference Range Interpretation Comme nts TOTAL BILI (test code = 8071825936) 0.5 mg/dL 0.1-1.1 BILI UNCON (test code = 5879623733) 0.0 mg/dL 0.1-1.1 L BILI CONJ (test code = 7625183118) 0.0 mg/dL 0.0-0.3 T PROTEIN (test code = 6944076727) 5.7 g/dL 6.3-8.2 L ALBUMIN (test code = 6312714614) 2.7 g/dL 3.5-5.0 L ALK PHOS (test code = 3104351687) 42 U/L 34-122 ALTv (test code = 1742-6) 20 U/L 5-50 AST(SGOT) (test code = 1652835266) 25 U/L 13-40 Lab Interpretation (test cod e = 01142-0) Abnormal [facility] Function [facility] (ALB, T.PRO, BILI T, BU/BC, ALT, AST, ALK, PHOS)2024-02-09 11:59:09* Test Item Value Reference Range Interpretation Comme nts TOTAL BILI (test code = 9629665018) 0.5 mg/dL 0.1-1.1 BILI UNCON (test code = 3680826561) 0.0 mg/dL 0.1-1.1 L BILI CONJ (test code = 2307337769) 0.0 mg/dL 0.0-0.3 T PROTEIN (test code = 4252906233) 5.7 g/dL 6.3-8.2 L ALBUMIN (test code = 2700465200) 2.7 g/dL 3.5-5.0 L ALK PHOS (test code = 2946300959) 42 U/L 34-122 ALTv (test code = 1742-6) 20 U/L 5-50 AST(SGOT) (test code = 3162082966) 25 U/L 13-40 Lab Interpretation (test cod e = 97298-1) Abnormal [facility] (ALB, T.PRO, BILI T, BU/BC, ALT, AST, ALK, PHOS)2024-02-09 11:59:09* Test Item Value Reference Range Interpretation Comme nts TOTAL BILI (test code = 2591071371) 0.5 mg/dL 0.1-1.1 BILI UNCON (test code = 1082460104) 0.0 mg/dL 0.1-1.1 L BILI CONJ (test code = 2573875480) 0.0 mg/dL 0.0-0.3 T PROTEIN (test code = 4082952043) 5.7 g/dL 6.3-8.2 L ALBUMIN (test code = 9428260516) 2.7 g/dL 3.5-5.0 L ALK PHOS (test code = 5298735657) 42 U/L 34-122 ALTv (test code = 1742-6) 20 U/L 5-50 AST(SGOT) (test code = 5910057236) 25 U/L 13-40 Lab Interpretation (test cod e = 84112-0) [facility] (ALB, T.PRO, BILI T, BU/BC, ALT, AST, ALK, PHOS)2024-02-09 11:59:09* Test Item Value Reference Range Interpretation Comme nts TOTAL BILI (test code = 5480631977) 0.5 mg/dL 0.1-1.1 BILI UNCON (test code = 2336551216) 0.0 mg/dL 0.1-1.1 L BILI CONJ (test code = 0665125374) 0.0 mg/dL 0.0-0.3 T PROTEIN (test code = 1178864417) 5.7 g/dL 6.3-8.2 L ALBUMIN (test code = 9418343273) 2.7 g/dL 3.5-5.0 L ALK PHOS (test code = 3563788543) 42 U/L 34-122 ALTv (test code = 1742-6) 20 U/L 5-50 AST(SGOT) (test code = 9737235671) 25 U/L 13-40 Lab Interpretation (test cod e = 95173-0) Abnormal [facility] TexasMagnesium Wjihu1135-21-25 11:59:09* Test Item Value Reference Range Interpretation Comme nts MAGNESIUM (test code = 4442334479) 1.8 mg/dL 1.7-2.4 Lab Interpretation (test cod e = 68067-8) Normal [facility] (ALB, T.PRO, BILI T, BU/BC, ALT, AST, ALK, PHOS)2024-02-09 11:59:09* Test Item Value Reference Range Interpretation Comme nts TOTAL BILI (test code = 2422409690) 0.5 mg/dL 0.1-1.1 BILI UNCON (test code = 4131597504) 0.0 mg/dL 0.1-1.1 L BILI CONJ (test code = 3602973077) 0.0 mg/dL 0.0-0.3 T PROTEIN (test code = 5445481884) 5.7 g/dL 6.3-8.2 L ALBUMIN (test code = 0182191366) 2.7 g/dL 3.5-5.0 L ALK PHOS (test code = 1106562638) 42 U/L 34-122 ALTv (test code = 1742-6) 20 U/L 5-50 AST(SGOT) (test code = 5209649181) 25 U/L 13-40 Lab Interpretation (test cod e = 72578-3) Abnormal [facility] TexasMagnesium Vxtwb7812-57-26 11:59:09* Test Item Value Reference Range Interpretation Comme nts MAGNESIUM (test code = 9049941772) 1.8 mg/dL 1.7-2.4 Lab Interpretation (test cod e = 41040-0) Normal [facility] TexasCb without [id number] 10:43:27* Test Item Value Reference Range Interpretation Comme nts WBC (test code = 6690-2) 8.22 4.20-10.70 RBC (test code = 789-8) 3.18 4.26-5.52 L HGB (test code = 718-7) 8.7 g/dL 12.2-16.4 L HCT (test code = 4544-3) 27.2 % 38.4-49.3 L MCH (test code = 785-6) 27.4 pg 26.1-32.7 MCV (test code = 787-2) 85.5 fL 81.7-95.6 MCHC (test code = 786-4) 32.0 g/dL 31.2-35.0 PLT (test code = 777-3) 100 150-328 L MPV (test code = 70248-6) 12.6 fL 9.8-13.0 RDW-CV (test code = 788-0) 13.5 % 12.1-15.4 RDW-SD (test code = 15187-6) 41.9 fL 38.5-51.6 NRBC x10^3 (test code = 1574465404) See_Comment [Automated [employer]] The system which generated this result transmitted reference range: 10*3/?L. The reference range was not used to interpret this result as normal/abnormal. NRBC/100 WBC (test code = 5448805604) 0.0 0.0-10.0 IPF % (test code = 5432460246) Lab Interpretation (test code = 36275-8) Abnormal [facility] without Nmwj9962-22-12 10:43:27* Test Item Value Reference Range Interpretation Comme nts WBC (test code = 6690-2) 8.22 4.20-10.70 RBC (test code = 789-8) 3.18 4.26-5.52 L HGB (test code = 718-7) 8.7 g/dL 12.2-16.4 L HCT (test code = 4544-3) 27.2 % 38.4-49.3 L MCH (test code = 785-6) 27.4 pg 26.1-32.7 MCV (test code = 787-2) 85.5 fL 81.7-95.6 MCHC (test code = 786-4) 32.0 g/dL 31.2-35.0 PLT (test code = 777-3) 100 150-328 L MPV (test code = 64353-6) 12.6 fL 9.8-13.0 RDW-CV (test code = 788-0) 13.5 % 12.1-15.4 RDW-SD (test code = 48336-6) 41.9 fL 38.5-51.6 NRBC x10^3 (test code = 5273004989) See_Comment [Automated [employer]] The system which generated this result transmitted reference range: 10*3/?L. The reference range was not used to interpret this result as normal/abnormal. NRBC/100 WBC (test code = 8795185964) 0.0 0.0-10.0 IPF % (test code = 6891129107) Lab Interpretation (test code = 82566-7) Abnormal [facility] TexasLIPASE2024-05-28 09:20:22* Test Item Value Reference Range Interpretation Comme nts LIPASE (test code = 0238227970) 489 U/L 0-220 H Lab Interpretation (test cod e = 85256-1) [facility] 09:20:22* Test Item Value Reference Range Interpretation Comme nts LIPASE (test code = 9665657505) 489 U/L 0-220 H Lab Interpretation (test cod e = 54753-5) Abnormal [facility]2024-05-28 09:20:22* Test Item Value Reference Range Interpretation Comme nts LIPASE (test code = 2243363273) 489 U/L 0-220 H Lab Interpretation (test cod e = 98995-0) Abnormal [facility]2024-05-28 09:20:22* Test Item Value Reference Range Interpretation Comme nts LIPASE (test code = 9165193003) 489 U/L 0-220 H Lab Interpretation (test cod e = 52030-4) Abnormal [facility]2024-05-28 09:20:22* Test Item Value Reference Range Interpretation Comme nts LIPASE (test code = 0135043947) 489 U/L 0-220 H Lab Interpretation (test cod e = 45819-0) Abnormal [facility]2024-05-28 09:20:22* Test Item Value Reference Range Interpretation Comme nts LIPASE (test code = 5728797497) 489 U/L 0-220 H Lab Interpretation (test cod e = 16686-3) Abnormal [facility] TexasPrepare Packed RBC (in units)2024-02-09 07:52:54* Test Item Value Reference Range Interpretation Comme nts Unit Blood Type (test code = 4410) O Pos ISBT Blood Type Code (test code = 719554 5105 Unit Number (test code = 4411) [id number] Blood Expiration Date & Time (test code = 631803) 959356486081 Status Information (test code = 4412) Issued Product Identification (test code = 4413) Red Blood Cells Product Code (test code = 4414) [id number] Performed at [facility] B Laboratory Services [facility] Blood [address] [place], [place] [address]Toll Free: [phone] No. [id number] [facility] Packed RBC (in units)2024-02-09 07:52:54* Test Item Value Reference Range Interpretation Comme [facility] Unit Blood Type (test code = 4410) O Pos ISBT Blood Type Code (test code = 920358) 5100 Unit Number (test code = 4411) [id number] Blood Expiration Date & Time (test code = 077756) 109783363430 Status Information (test code = 4412) Issued Product Identification (test code = 4413) Red Blood Cells Product Code (test code = 4414) [id number] Performed at [facility] Blood [address] Free: [phone] No. [id number] [facility] Packed RBC (in units)2024-02-09 07:52:54* Test Item Value Reference Range Interpretation Comme [facility] Unit Blood Type (test code = 4410) O Pos ISBT Blood Type Code (test code = 619529) 5100 Unit Number (test code = 4411) [id number] Blood Expiration Date & Time (test code = 768180) 493953029869 Status Information (test code = 4412) Issued Product Identification (test code = 4413) Red Blood Cells Product Code (test code = 4414) [id number] Performed at [facility] Blood [address] Free: [phone] No. [id number] [facility] Packed RBC (in units)2024-02-09 07:52:54* Test Item Value Reference Range Interpretation Comme [facility] Unit Blood Type (test code = 4410) O Pos ISBT Blood Type Code (test code = 205803) 5100 Unit Number (test code = 4411) [id number] Blood Expiration Date & Time (test code = 512001) 805608208395 Status Information (test code = 4412) Issued Product Identification (test code = 4413) Red Blood Cells Product Code (test code = 4414) [id number] Performed at [facility] Blood [address] [address]Src[address] Free: [phone] No. [id number] [facility] Packed RBC (in units)2024-02-09 07:52:54* Test Item Value Reference Range Interpretation Comme nts Unit Blood Type (test code = 4410) O Pos ISBT Blood Type Code (test code = 472783) 5100 Unit Number (test code = 4411) [id number] Blood Expiration Date & Time (test code = 448330) 723612671659 Status Information (test code = 4412) Issued Product Identification (test code = 4413) Red Blood Cells Product Code (test code = 4414) [id number] Performed at [address] [address]Fmpo Free: [phone] No. [id number] [facility] Packed RBC (in units)2024-02-09 07:52:54* Test Item Value Reference Range Interpretation Comme nts Unit Blood Type (test code = 4410) O Pos ISBT Blood Type Code (test code = 154097) 5100 Unit Number (test code = 4411) [id number] Blood Expiration Date & Time (test code = 797833) 552694572740 Status Information (test code = 4412) Issued Product Identification (test code = 4413) Red Blood Cells Product Code (test code = 4414) [id number] Performed at [facility] Blood [address] [address]A[place]y Free: [phone] No. [id number] [facility] WITH [id number] 07:25:24* Test Item Value Reference Range Interpretation Comme nts WBC (test code = 6690-2) 11.69 4.20-10.70 H RBC (test code = 789-8) 3.38 4.26-5.52 L HGB (test code = 718-7) 9.3 g/dL 12.2-16.4 L HCT (test code = 4544-3) 28.9 % 38.4-49.3 L MCV (test code = 787-2) 85.5 fL 81.7-95.6 MCH (test code = 785-6) 27.5 pg 26.1-32.7 MCHC (test code = 786-4) 32.2 g/dL 31.2-35.0 RDW-SD (test code = 35510-2) 41.9 fL 38.5-51.6 RDW-CV (test code = 788-0) 13.5 % 12.1-15.4 PLT (test code = 777-3) 218 150-328 MPV (test code = 90813-8) 11.7 fL 9.8-13.0 NRBC/100 WBC (test code = 6361057215) 0.0 0.0-10.0 NRBC x10^3 (test code = 0627941265) See_Comment [Automated messa ge] The system which generated this result transmitted reference range: 10*3/?L. The reference range was not used to interpret this result as normal/abnormal. GRAN MAT (NEUT) % (test code = 770-8) 45.1 % IMM GRAN % (test code = 5435337729) 0.40 % LYMPH % (test code = 736-9) 41.9 % MONO % (test code = 5905-5) 9.2 % EOS % (test code = 713-8) 2.7 % BASO % (test code = 706-2) 0.7 % GRAN MAT x10^3(ANC) (test code = 6541731688) 5.28 10*3/uL 1.99-6.95 IMM GRAN x10^3 (test code = 7314285947) 0.05 10*3/uL 0.00-0.06 LYMPH x10^3 (test code = 731-0) 4.90 10*3/uL 1.09-3.23 H MONO x10^3 (test code = 742-7) 1.07 10*3/uL 0.36-1.02 H EOS x10^3 (test code = 711-2) 0.31 10*3/uL 0.06-0.53 BASO x10^3 (test code = 704-7) 0.08 10*3/uL 0.01-0.09 REACT LYMPHS (test code = 9946592662) Rare Lab Interpretation (test code = 04813-6) Abnormal [facility] WITH [id number] 07:25:24* Test Item Value Reference Range Interpretation Comme nts WBC (test code = 6690-2) 11.69 4.20-10.70 H RBC (test code = 789-8) 3.38 4.26-5.52 L HGB (test code = 718-7) 9.3 g/dL 12.2-16.4 L HCT (test code = 4544-3) 28.9 % 38.4-49.3 L MCV (test code = 787-2) 85.5 fL 81.7-95.6 MCH (test code = 785-6) 27.5 pg 26.1-32.7 MCHC (test code = 786-4) 32.2 g/dL 31.2-35.0 RDW-SD (test code = 82456-6) 41.9 fL 38.5-51.6 RDW-CV (test code = 788-0) 13.5 % 12.1-15.4 PLT (test code = 777-3) 218 150-328 MPV (test code = 86407-6) 11.7 fL 9.8-13.0 NRBC/100 WBC (test code = 8275054930) 0.0 0.0-10.0 NRBC x10^3 (test code = 6908393300) See_Comment [Automated messa ge] The system which generated this result transmitted reference range: 10*3/?L. The reference range was not used to interpret this result as normal/abnormal. GRAN MAT (NEUT) % (test code = 770-8) 45.1 % IMM GRAN % (test code = 2225759479) 0.40 % LYMPH % (test code = 736-9) 41.9 % MONO % (test code = 5905-5) 9.2 % EOS % (test code = 713-8) 2.7 % BASO % (test code = 706-2) 0.7 % GRAN MAT x10^3(ANC) (test code = 8932167913) 5.28 10*3/uL 1.99-6.95 IMM GRAN x10^3 (test code = 7317226618) 0.05 10*3/uL 0.00-0.06 LYMPH x10^3 (test code = 731-0) 4.90 10*3/uL 1.09-3.23 H MONO x10^3 (test code = 742-7) 1.07 10*3/uL 0.36-1.02 H EOS x10^3 (test code = 711-2) 0.31 10*3/uL 0.06-0.53 BASO x10^3 (test code = 704-7) 0.08 10*3/uL 0.01-0.09 REACT LYMPHS (test code = 7229409455) Rare Lab Interpretation (test code = 86491-6) Abnormal [facility]2024-05-28 07:15:47 ALCOHOL<10mg/dL02/09/2024 2:15 AM CDTUTMB LABORATORY SERVICESToxic Greater than or equal to 80 mg/dL. NOTE: Whole blood values are approximately 10% to 15% lower than serum and plasma.[facility]2024-05-28 07:15:47ALCOHOL<10mg/dL02/09/2024 2:15 AM CDTUTMB LABORATORY SERVICESToxic Greater than or equal to 80 mg/dL. NOTE: Whole blood values are approximately 10% to 15% lower than serum and plasma.[facility] 2024-02-09 07:15:47ALCOHOL<10mg/dL02/09/2024 2:15 AM CDTUTMB LABORATORY SERVICESToxic Greater than or equal to 80 mg/dL. NOTE: Whole blood values are approximately 10% to 15% lower than serum and plasma.[facility]2024-05-28 07:15:47ALCOHOL<10mg/dL02/09/2024 2:15 AM CDTUTMB LABORATORY SERVICESToxic Greater than or equal to 80 mg/dL. NOTE: Whole blood values are approximately 10% to 15% lower than serum and plasma.[facility]2024-05-28 07:15:47ALCOHOL<10mg/dL02/09/2024 2:15 [facility]AT[facility] SERVICESToxic Greater than or equal to 80 mg/dL. NOTE: Whole blood values are approximately 10% to 15% lower than serum and plasma.[facility] METABOLIC PANEL ([id number])2024-02-09 07:15:11* Test Item Value Reference Range Interpretation Comme nts NA (test code = 5521890600) 139 mmol/L 135-145 K (test code = 3092197848) 3.7 mmol/L 3.5-5.0 CL (test code = 3668033742) 107 mmol/L 98-108 CO2 TOTAL (test code = 0659963279) 27 mmol/L 23-31 AGAP (test code = 3892006207) 5 2-16 BUN (test code = 4335883914) 15 mg/dL 7-23 GLUCOSE (test code = 5251985938) 269 mg/dL 70-110 H CREATININE (test code = 2160-0) 1.07 mg/dL 0.60-1.25 TOTAL BILI (test code = 6274708684) 0.5 mg/dL 0.1-1.1 CALCIUM (test code = 9240126712) 8.8 mg/dL 8.6-10.6 T PROTEIN (test code = 4779084769) 6.9 g/dL 6.3-8.2 ALBUMIN (test code = 5695377430) 3.5 g/dL 3.5-5.0 ALK PHOS (test code = 0949812201) 42 U/L 34-122 ALTv (test code = 1742-6) 24 U/L 5-50 AST(SGOT) (test code = 1770785424) 28 U/L 13-40 eGFR (test code = 92150-8) 79.0 mL/min/1.73m2 CKD-EPI eGFR (2020). Assuming creatinine has been stable day-to-day for at least three months, the eGFR indicates Category G2 (60 - 89 mL/min/1.73 m2) Lab Interpretation (test code = 18895-0) Abnormal [facility] METABOLIC PANEL ([id number])2024-02-09 07:15:11* Test Item Value Reference Range Interpretation Comme nts NA (test code = 5997145574) 139 mmol/L 135-145 K (test code = 7777719060) 3.7 mmol/L 3.5-5.0 CL (test code = 5107285940) 107 mmol/L 98-108 CO2 TOTAL (test code = 4590323628) 27 mmol/L 23-31 AGAP (test code = 4539507276) 5 2-16 BUN (test code = 9346110571) 15 mg/dL 7-23 GLUCOSE (test code = 3180950904) 269 mg/dL 70-110 H CREATININE (test code = 2160-0) 1.07 mg/dL 0.60-1.25 TOTAL BILI (test code = 3491469992) 0.5 mg/dL 0.1-1.1 CALCIUM (test code = 8816770928) 8.8 mg/dL 8.6-10.6 T PROTEIN (test code = 2623552303) 6.9 g/dL 6.3-8.2 ALBUMIN (test code = 1976729546) 3.5 g/dL 3.5-5.0 ALK PHOS (test code = 5654279484) 42 U/L 34-122 ALTv (test code = 1742-6) 24 U/L 5-50 AST(SGOT) (test code = 9974769840) 28 U/L 13-40 eGFR (test code = 60733-6) 79.0 mL/min/1.73m2 CKD-EPI eGFR (2020). Assuming creatinine has been stable day-to-day for at least three months, the eGFR indicates Category G2 (60 - 89 mL/min/1.73 m2) Lab Interpretation (test code = 68122-7) Abnormal [facility] MET[facility]OLIC PANEL ([id number])2024-02-09 07:15:11* Test Item Value Reference Range Interpretation Comme nts NA (test code = 3582298637) 139 mmol/L 135-145 K (test code = 0148668735) 3.7 mmol/L 3.5-5.0 CL (test code = 2458803904) 107 mmol/L 98-108 CO2 TOTAL (test code = 4062025072) 27 mmol/L 23-31 AGAP (test code = 2102289293) 5 2-16 BUN (test code = 2041314246) 15 mg/dL 7-23 GLUCOSE (test code = 8413816755) 269 mg/dL 70-110 H CREATININE (test code = 2160-0) 1.07 mg/dL 0.60-1.25 TOTAL BILI (test code = 9659015388) 0.5 mg/dL 0.1-1.1 CALCIUM (test code = 7145919815) 8.8 mg/dL 8.6-10.6 T PROTEIN (test code = 3826474641) 6.9 g/dL 6.3-8.2 ALBUMIN (test code = 4331956731) 3.5 g/dL 3.5-5.0 ALK PHOS (test code = 4119876716) 42 U/L 34-122 ALTv (test code = 1742-6) 24 U/L 5-50 AST(SGOT) (test code = 9879207750) 28 U/L 13-40 eGFR (test code = 80458-0) 79.0 mL/min/1.73m2 CKD-EPI eGFR (2020). Assuming creatinine has been stable day-to-day for at least three months, the eGFR indicates Category G2 (60 - 89 mL/min/1.73 m2) Lab Interpretation (test code = 65935-7) Abnormal [facility]. METABOLIC PANEL ([id number])2024-02-09 07:15:11* Test Item Value Reference Range Interpretation Comme nts NA (test code = 8392414686) 139 mmol/L 135-145 K (test code = 0804724083) 3.7 mmol/L 3.5-5.0 CL (test code = 0518790352) 107 mmol/L 98-108 CO2 TOTAL (test code = 1807667204) 27 mmol/L 23-31 AGAP (test code = 1848432637) 5 2-16 BUN (test code = 9792282616) 15 mg/dL 7-23 GLUCOSE (test code = 7230779116) 269 mg/dL 70-110 H CREATININE (test code = 2160-0) 1.07 mg/dL 0.60-1.25 TOTAL BILI (test code = 1847266508) 0.5 mg/dL 0.1-1.1 CALCIUM (test code = 0532575883) 8.8 mg/dL 8.6-10.6 T PROTEIN (test code = 8364204238) 6.9 g/dL 6.3-8.2 ALBUMIN (test code = 3154871067) 3.5 g/dL 3.5-5.0 ALK PHOS (test code = 5769887488) 42 U/L 34-122 ALTv (test code = 1742-6) 24 U/L 5-50 AST(SGOT) (test code = 9380322482) 28 U/L 13-40 eGFR (test code = 96671-0) 79.0 mL/min/1.73m2 CKD-EPI eGFR (2020). Assuming creatinine has been stable day-to-day for at least three months, the eGFR indicates Category G2 (60 - 89 mL/min/1.73 m2) Lab Interpretation (test code = 71579-1) [facility]normal [facility]OL[facility] ([id number])2024-02-09 07:15:11* Test Item Value Reference Range Interpretation Comme nts NA (test code = 7588293146) 139 mmol/L 135-145 K (test code = 7750868407) 3.7 mmol/L 3.5-5.0 CL (test code = 7657075903) 107 mmol/L 98-108 CO2 TOTAL (test code = 0286699960) 27 mmol/L 23-31 AGAP (test code = 0642332678) 5 2-16 BUN (test code = 4117006357) 15 mg/dL 7-23 GLUCOSE (test code = 0981149991) 269 mg/dL 70-110 H CREATININE (test code = 2160-0) 1.07 mg/dL 0.60-1.25 TOTAL BILI (test code = 8746003895) 0.5 mg/dL 0.1-1.1 CALCIUM (test code = 2476350853) 8.8 mg/dL 8.6-10.6 T PROTEIN (test code = 1598583410) 6.9 g/dL 6.3-8.2 ALBUMIN (test code = 4152577855) 3.5 g/dL 3.5-5.0 ALK PHOS (test code = 1826100906) 42 U/L 34-122 ALTv (test code = 1742-6) 24 U/L 5-50 AST(SGOT) (test code = 1489349612) 28 U/L 13-40 eGFR (test code = 03246-7) 79.0 mL/min/1.73m2 CKD-EPI eGFR (2020). Assuming creatinine has been stable day-to-day for at least three months, the eGFR indicates Category G2 (60 - 89 mL/min/1.73 m2) Lab Interpretation (test code = 62421-4) Abnormal [facility]OLIC PAN[facility] ([id number])2024-02-09 07:15:11* Test Item Value Reference Range Interpretation Comme nts NA (test code = 6165380166) 139 mmol/L 135-145 K (test code = 5305397870) 3.7 mmol/L 3.5-5.0 CL (test code = 5635246462) 107 mmol/L 98-108 CO2 TOTAL (test code = 0664395008) 27 mmol/L 23-31 AGAP (test code = 7066581470) 5 2-16 BUN (test code = 0629029723) 15 mg/dL 7-23 GLUCOSE (test code = 5757642092) 269 mg/dL 70-110 H CREATININE (test code = 2160-0) 1.07 mg/dL 0.60-1.25 TOTAL BILI (test code = 3329321202) 0.5 mg/dL 0.1-1.1 CALCIUM (test code = 2925977637) 8.8 mg/dL 8.6-10.6 T PROTEIN (test code = 0761243588) 6.9 g/dL 6.3-8.2 ALBUMIN (test code = 0215577340) 3.5 g/dL 3.5-5.0 ALK PHOS (test code = 7567819874) 42 U/L 34-122 ALTv (test code = 1742-6) 24 U/L 5-50 AST(SGOT) (test code = 2351298518) 28 U/L 13-40 eGFR (test code = 01824-3) 79.0 mL/min/1.73m2 CKD-EPI eGFR (2020). Assuming creatinine has been stable day-to-day for at least three months, the eGFR indicates Category G2 (60 - 89 mL/min/1.73 m2) Lab Interpretation (test code = 34370-6) Abnormal [facility] TexasPROT[facility] / [id number] 07:12:51* Test Item Value Reference Range Interpretation Comme nts PROTIME PATIENT (test code = 5964-2) 11.7 10.1-12.6 INR (test code = 6301-6) 1.0 Normal INR <1.1; Warfarin Therapeutic range 2.0 to 3.0 or 2.5 to 3.5, depending upon the indications. Lab Interpretation (test code = 43920-6) Normal [facility]ACTIV[facility] PARTIAL THRMPLAS [id number] 07:12:51* Test Item Value Reference Range Interpretation Comme nts APTT Patient (test code = 3173-2) 21 26-36 L Lab Interpretation (test cod e = 14920-7) Abnormal [facility] TexasPROTHROMBIN TIME / [id number] 07:12:51* Test Item Value Reference Range Interpretation Comme nts PROTIME PATIENT (test code = 5964-2) 11.7 10.1-12.6 INR (test code = 6301-6) 1.0 Normal INR <1.1; Warfarin Therapeutic range 2.0 to 3.0 or 2.5 to 3.5, depending upon the indications. Lab Interpretation (test code = 49907-4) Normal [facility]ACT[facility] PARTIAL THRMPLAS [id number] 07:12:51* Test Item Value Reference Range Interpretation Comme nts APTT Patient (test code = 3173-2) 21 26-36 L Lab Interpretation (test cod e = 68715-8) Abnormal [facility] GLUCOSE (AUTOMATED)2024-02-09 06:47:15* Test Item Value Reference Range Interpretation Comme nts POCT GLU (test code = 8600613648) 216 mg/dL 70-110 H Lab Interpretation (test cod e = 54417-5) Abnormal [facility] GLUCOSE (AUTOMATED)2024-02-09 06:47:15* Test Item Value Reference Range Interpretation Comme nts POCT GLU (test code = 5182963316) 216 mg/dL 70-110 H Lab Interpretation (test cod e = 11049-6) [facility] >30DAYS[facility]2024-02-09 06:46:00* Test Item Value Reference Range Interpretation Comme nts POCT Glu (age>30days) (test code = 3342) 216 mg/dL 70-110 A Lab Interpretation (test cod e = 00988-2) Abnormal [facility]PO[facility]SE(AGE >30DAYS)2024-02-09 06:46:00* Test Item Value Reference Range Interpretation Comme nts POCT Glu (age>30days) (test code = 3342) 216 mg/dL 70-110 A Lab Interpretation (test cod e = 72121-9) Abnormal [facility] BranchPOCT GLUCOSE(AGE >30DAYS)2024-02-09 06:46:00* Test Item Value Reference Range Interpretation Comme nts POCT Glu (age>30days) (test code = 3342) 216 mg/dL 70-110 A Lab Interpretation (test cod e = 59585-6) [facility] >30DAYS)2024-02-09 06:46:00* Test Item Value Reference Range Interpretation Comme nts POCT Glu (age>30days) (test code = 3342) 216 mg/dL 70-110 A Lab Interpretation (test cod e = 30811-8) Abnormal [facility] BranchPOCT GLUCOSE(AGE >30DAYS)2024-02-09 06:46:00* Test Item Value Reference Range Interpretation Comme nts POCT Glu (age>30days) (test code = 3342) 216 mg/dL 70-110 A Lab Interpretation (test cod e = 52988-0) Abnormal [facility] BranchPOCT GLUCOSE(AGE >30DAYS)2024-02-09 06:46:00* Test Item Value Reference Range Interpretation Comme nts POCT Glu (age>30days) (test code = 3342) 216 mg/dL 70-110 A Lab Interpretation (test cod e = 97939-0) Abnormal [facility] and Screen - ONCE [id number] 06:42:00* Test Item Value Reference Range Interpretation Comme nts ABO & RH (test code = 20) A NEGATIVE IAT (test code = 1185) Negative [facility] and Screen - ONCE [id number] 06:42:00* Test Item Value Reference Range Interpretation Comme nts ABO & RH (test code = 20) A NEGATIVE IAT (test code = 1185) [facility] [id number] 20:08:00 PROCEDURE: DIAGNOSTIC CEREBRAL ANGIOGRAPHY ATTENDING: Dr Haines. Attending was present during the entire case. CLINICAL HISTORY: Patient is a 63 year old male with PMH of HTN, HLD, DMwho presented in December 2023 for acute dense left face, arm and legweakness/numbness and leg hemineglect. He was not given acute interventiongiven his NIHSS returned from 9 to 0 while in the ER. CTA showed severeright ICA ?stenosis and findings concerning for underlying thrombus andright inferior M2 occlusion. MRI showed subacute right MCA infarction. Hewas placed on anticoagulation. ?He again presented with left sided weaknessand numbness and repeat CTA showed similar findings as the initialpresentation. He was then offered DSA for further work up ? TECHNIQUE Procedure in detail After discussing the risks and benefits, including but not limited topotential complications such as stroke, hemorrhage, vascular injury orocclusion, contrast reaction / toxicity, , and other unforeseeableevents, the patient signed informed consent and asked us to proceed asplanned. The patient was then placed in supine position on the angio tableand the R common femoral artery area was prepped and draped in usualsurgical fashion. Conscious sedation using Fentanyl was administered . Theperi-arterial and subcutaneous tissues were infiltrated with 10 mllidocaine without epinephrine and the puncture area located by palpati on,and ?fluoroscopy. The femoral artery was visualized under ultrasound andwas patent. The common femoral artery was cannulated with a single walltechnique. A 5 Chinese vascular sheath was placed and secured with Op-Site.The vascular sheath and the diagnostic catheter were perfused withheparinized saline solution throughout the remainder of the procedure. A 4French angled Berenstein catheter alongwith a 0.035 inch Terumo Glidewirewas the advanced under fluoroscopy across the aortic arch and maneuveredinto the right common carotid artery where a cervical and cranial angiogramwas performed. . Then catheter was advanced in proximal R vertebral arteryunder roadmap guidance, and biplane angiography was performed. The Catheterwas retracted into the aortic arch and maneuvered over the guide wireintothe LCCA where a cervical angiogram was performed. Using roadmap guidance,the catheter was thenplaced over the guide wire into the LICA and AP,lateral cerebral views of the left intracranial circulation were obtained.The catheter was then again retracted into the aortic arch and maneuveredoverthe guide wire into the left subclavian artery and proximal leftvertebral artery under roadmap guidance and a distal cervical and cerebralangiogram performed. The vascular sheath was removed under compression and a 5 Chinese Mynxsystem was inserted to close the arteriotomy. Excellent hemostasis wasobtained. The patient was transferred from the angiography suite,hemodynamically and neurologically unchanged. TASKS - Catheterization of the right common femoral artery- Catheterization and cervical and cranial angiogram of the right commoncarotid artery- 3D rotational angiogram of the R CCA with image processed on dedicatedworkstation by Dr Haines- Selective catheterization and angiogram of the right vertebral artery- Selective catheterization and cervical angiogram/roadmap of the leftcommon carotid artery- Selective catheterization and angiogram of the left internal carotidartery - Selective catheterization and angiogram of the left vertebral artery- Mynx closure of the right femoral arteriotomy site CONSCIOUS SEDATION: Pre-procedure evaluation confirmed that the patient mahesh appropriatecandidate for conscious sedation. Adequate sedation wasmaintained during the entire procedure. Vital signs, pulse oximetry, andresponse to verbal commands were monitored and recorded by the nursethroughout the procedure and the recovery period. The flow sheet was placedin the medical record including the medications and dosages used. Thepatient returned to baseline neurologic and physiologic status prior toleaving the department. No immediate sedation related complications werenoted. Conscious sedation was monitored by the attending for greater than30 minutes. FINDINGS Right Femoral artery : Puncture Site is situated above the femoralbifurcation. There is brisk filling of the common femoralartery with noevidence of dissection, aneurysm or filling defect. The regional vasculartree was normal. Right CCA: (cervical and cranial) : Atherosclerotic plaque at the rightcarotid bifurcation results in near complete occlusion of the proximalright cervical internal carotid artery with a string sign (98 % stenosis byNASCET criteria) with slow flow seen distally in the vessel There is delayed opa cification of the cervical, petrous, cavernous andcommunicating segment. There was a small posterior communicating artery .No antegrade opacification of ZEE and MCA is noted .There is no aneurysm ormalformation noted in the study. Rest of capillary and venous phase ofstudy is normal. The catheter in the right CCA was connected to a power injector and A planerotational cone beam CT was performed with osseous subtraction to furtherdelineate the morphology of the stenosis. Three-dimensional angiographicimages were processed on an independent workstation by Dr. Haines, andvolume-rendered three-dimensional images were submitted for interpretation. 3-D angiogram confirmed above-mentioned findings. RIGHT ECA: Selective injection of the right ECA demonstrated brisk fillingof the ECA candelabras with no evidence of early venous filling suggestiveof ?AV shunting. RIGHT SUBCLAVIAN AND VERTEBRAL ARTERY: There is moderate stenosis of rightVA at the origin from subclavian artery. Selective injectionof the rightvertebral artery demonstrated brisk filling of the extracranial andintracranial vertebral arteries. There is brisk filling of the basilarcandelabras with no evidence of AV shunting suggestive of fistula.Capillary and venous phase of the study are normal. LEFT CCA: Atherosclerotic plaqueat the left carotid bifurcation results inmild irregularity of the proximal cervical left internal carotid artery,but no significant underlying vessel stenosis (0% stenosis by NASCETcriteria). LEFT IC A: Selective injection of the left internal ?carotid arterydemonstrated brisk filling of the extracranial and intracranial ICA and itsbranches. Noted is mild atherosclerotic narrowing narrowing of the carotidsiphon. There is brisk filling of the ophthalmic artery. Noted is fillingof the right ZEE and MCA territory via large anterior communicating artery.There was a small posterior communicating ar della with flash filling of theP2 and P3 segment. There is no early venous drainage, vessel irregularityor aneurysm. Left Vertebral artery : Selective injection of the left vertebral arterydemonstrated brisk filling of the V3, V4 segment, left PICA, bilateralAICA, bilateral SCA and both [employer]. Thee ismild irregularity of basilarartery. Noted is filling of right MCA territory tree via posterior rightcommunicating artery. There is no evidence of AV shunting , aneurysm orthromboembolic defect in this study.[facility] with [id number] 20:01:47* Test Item Value Reference Range Interpretation Comme nts WBC (test code = 6690-2) 3.10 4.20-10.70 L RBC (test code = 789-8) 3.65 4.26-5.52 L HGB (test code = 718-7) 10.3 g/dL 12.2-16.4 L HCT (test code = 4544-3) 30.7 % 38.4-49.3 L MCV (test code = 787-2) 84.1 fL 81.7-95.6 MCH (test code = 785-6) 28.2 pg 26.1-32.7 MCHC (test code = 786-4) 33.6 g/dL 31.2-35.0 RDW-SD (test code = 13392-1) 41.2 fL 38.5-51.6 RDW-CV (test code = 788-0) 13.3 % 12.1-15.4 PLT (test code = 777-3) 106 150-328 L MPV (test code = 38515-1) 10.5 fL 9.8-13.0 NRBC/100 WBC (test code = 0746715831) 0.0 0.0-10.0 NRBC x10^3 (test code = 3330234833) See_Comment [Automated messa ge] The system which generated this result transmitted reference range: 10*3/?L. The reference range was not used to interpret this result as normal/abnormal. GRAN MAT (NEUT) % (test code = 770-8) 55.9 % IMM GRAN % (test code = 3605547403) 0.30 % LYMPH % (test code = 736-9) 31.3 % MONO % (test code = 5905-5) 9.0 % EOS % (test code = 713-8) 2.9 % BASO % (test code = 706-2) 0.6 % GRAN MAT x10^3(ANC) (test code = 0237959101) 1.73 10*3/uL 1.99-6.95 L IMM GRAN x10^3 (test code = 0463349456) 0.00-0.06 LYMPH x10^3 (test code = 731-0) 0.97 10*3/uL 1.09-3.23 L MONO x10^3 (test code = 742-7) 0.28 10*3/uL 0.36-1.02 L EOS x10^3 (test code = 711-2) 0.09 10*3/uL 0.06-0.53 BASO x10^3 (test code = 704-7) 0.01-0.09 Lab Interpretation (test code = 91349-2) Abnormal [facility] with [id number] 20:01:47* Test Item Value Reference Range Interpretation Comme nts WBC (test code = 6690-2) 3.10 4.20-10.70 L RBC (test code = 789-8) 3.65 4.26-5.52 L HGB (test code = 718-7) 10.3 g/dL 12.2-16.4 L HCT (test code = 4544-3) 30.7 % 38.4-49.3 L MCV (test code = 787-2) 84.1 fL 81.7-95.6 MCH (test code = 785-6) 28.2 pg 26.1-32.7 MCHC (test code = 786-4) 33.6 g/dL 31.2-35.0 RDW-SD (test code = 79313-8) 41.2 fL 38.5-51.6 RDW-CV (test code = 788-0) 13.3 % 12.1-15.4 PLT (test code = 777-3) 106 150-328 L MPV (test code = 68078-4) 10.5 fL 9.8-13.0 NRBC/100 WBC (test code = 1525355489) 0.0 0.0-10.0 NRBC x10^3 (test code = 3841100325) See_Comment [Automated messa ge] The system which generated this result transmitted reference range: 10*3/?L. The reference range was not used to interpret this result as normal/abnormal. GRAN MAT (NEUT) % (test code = 770-8) 55.9 % IMM GRAN % (test code = 2736406356) 0.30 % LYMPH % (test code = 736-9) 31.3 % MONO % (test code = 5905-5) 9.0 % EOS % (test code = 713-8) 2.9 % BASO % (test code = 706-2) 0.6 % GRAN MAT x10^3(ANC) (test code = 9497503257) 1.73 10*3/uL 1.99-6.95 L IMM GRAN x10^3 (test code = 6546497217) 0.00-0.06 LYMPH x10^3 (test code = 731-0) 0.97 10*3/uL 1.09-3.23 L MONO x10^3 (test code = 742-7) 0.28 10*3/uL 0.36-1.02 L EOS x10^3 (test code = 711-2) 0.09 10*3/uL 0.06-0.53 BASO x10^3 (test code = 704-7) 0.01-0.09 Lab Interpretation (test code = 88416-4) [facility] [id number] 13:22:55 FULL RESULT: Examination: MR STROKE BRAIN WO CONTRAST on 01/31/2024 5:23 PM Clinical Indication: Neuro deficit, acute, stroke suspected S/SX, Dx:Stroke Comparison: Slurred speech, left-sided numbness and headache, recent rightMCA stroke Technique: Multiplanar T1, T2 and diffusion-weighted images were obtainedthrough the brain. Findings: The sulci and ventricles are unchanged. The diffusion-weighted images do not reveal new ischemia. The previouslydescribed right MCA infarct is redemonstrated. 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 Isee no clearly acute hemorrhage.[facility] 2024-02-01 13:16:25CT STROKE ANGIOGRAM HEAD, CT STROKE ANGIOGRAM NECK PROVIDED INDICATION: Slurred speech, left-sided numbness and headache,recent right MCA stroke COMPARISON: Concurrent head CT , CT, CTA and brain MRI12/16/2023 TECHNIQUE: ?CT angiography of the head and neck was performed after theadministration of IV contrast with MIPS, coronal and sagittalreconstructions. Vascular measurements of stenosis were made according tothe NASCET criteria. FINDINGS: CTA NECK: Classic three vessel branching anatomy of the aortic arch. The arch vesselorigins are not completely included in the [id number]. The innominate and bilateral subclavian arteries are patent. There is again seen noncalcified plaque causing near complete occlusion ofthe right proximal ICA, annotated on image 28 series 4 1. The distalcervical ICA is patent. The left common and internal carotid arteries are patent . There isatherosclerotic plaque at the carotid bulb/proximal internal carotid arteryproducing less than 50% stenosis. The bilateral vertebral arteries are patent up the course to thevertebrobasilar junction. CTA HEAD: The PICA origin is visualized bilaterally. The basilar artery is normal incaliber. The superior cerebellar arteries are unremarkable. The posteriorcerebral arteries are unremarkable. Bilateral P-comms appear un remarkable. Calcified plaque causes moderate to severe stenosis of the proximal rightcavernous ICA and moderate stenosis of the right clinoid clinoid ICA.Calcified noncalcified plaque causes mild stenosis of the left carotidsiphon. The anterior and middle cerebral arteries are patent. The filling defectpreviously seen at the inferior division of the right M2 is notdefinitively seen on this exam. An anterior communicating artery isvisualized.[facility] 2024-02-01 13:16:25CT STROKE ANGIOGRAM HEAD, CT STROKE ANGIOGRAM NECK PROVIDED INDICATION: Slurred speech, left-sided numbness and headache,recent right MCA stroke COMPARISON: Concurrent head CT , CT, CTA and brain MRI12/16/2023 TECHNIQUE: ?CT angiography of the head and neck was performed after theadministration of IV contrast with MIPS, coronal and sagittalreconstructions. Vascular measurements of stenosis were made according tothe NASCET criteria. FINDINGS: CTA NECK: Classic three vessel branching anatomy of the aortic arch. The arch vesselorigins are not completely included in the eodyk-[id number]. The innominate and bilateral subclavian arteries are patent. There is again seen noncalcified plaque causing near complete occlusion ofthe right proximal ICA, annotated on image 28 series 4 1. The distalcervical ICA is patent. The left common and internal carotid arteries are patent . There isatherosclerotic plaque at the carotid bulb/proximal internal carotid arteryproducing less than 50% stenosis. The bilateral vertebral arteries are patent up the course to thevertebrobasilar junction. CTA HEAD: The PICA origin is visualized bilaterally. The basilar artery is normal incaliber. The superior cerebellar arteries are unremarkable. The posteriorcerebral arteries are unremarkable. Bilateral P-comms appear un remarkable. Calcified plaque causes moderate to severe stenosis of the proximal rightcavernous ICA and moderate stenosis of the right clinoid clinoid ICA.Calcified noncalcified plaque causes mild stenosis of the left carotidsiphon. The anterior and middle cerebral arteries are patent. The filling defectpreviously seen at the inferior division of the right M2 is notdefinitively seen on this exam. An anterior communicating artery isvisualized.[facility] CONTRAST 2024-01-31 21:41:41EXAM: CT STROKE HEAD WO CONTRAST HISTORY: 63 years-old Male; Provided indication: Neuro deficit, acute,stroke suspected. TECHNIQUE: Axial CT of the head was performed and reconstructed at 5 mmintervals. Coronal and sagittal reformatted images were generated. COMPARISON: 12/18/2023 FINDINGS: The ventricles and cerebral sulci are normal in caliber and configuration.No midline shift or pathological extra-axial fluid collection is present.The basal cisterns are unremarkable. No acute intracranial hemorrhage or significant mass effect is visualized.Redemonstrated right MCA territory medium-sized infarction seen on the CTon 12/18/2023 at the right ernandez radiata/centrum semiovale. Periventricularand deep white matter hypodensities are nonspecific but likely representsequelae of microvascular ischemic disease. The kaiser-white matterdifferentiation is preserved. The mastoid air cells and paranasal air sinuses are clear. The calvariumand central skull base are unremarkable. [facility] - Code [id number] 21:13:21* Test Item Value Reference Range Interpretation Comme nts TROPONIN I (test code = 3233603267) 0.003 ng/mL <=0.034 SIMIN (test code = SIMIN) Reference (Normal) Range (defined by the 99th percentile reference limit): <= 0.034 ng/mL Note: Cardiac troponin begins to rise 3-4 hours after the onset of ischemia. Repeat in 4-6 hours if the sample was drawn within 3-4 hours of the onset of the symptom and found normal. Diagnosis of myocardial injury is made with acute changes in cTn concentrations with at least one serial sample above the 99th percentile upper reference limit (URL), taken together with the patient's clinical presentation. Biotin has been reported to cause a negative bias, interpret results relative to patient's use of biotin. Lab Interpretation (test code = 03011-2) Normal [facility] I - Code [id number] 21:13:21* Test Item Value Reference Range Interpretation Comme nts TROPONIN I (test code = 0405170102) 0.003 ng/mL <=0.034 SIMIN (test code = SIMIN) Reference (Normal) Range (defined by the 99th percentile reference limit): <= 0.034 ng/mL Note: Cardiac troponin begins to rise 3-4 hours after the onset of ischemia. Repeat in 4-6 hours if the sample was drawn within 3-4 hours of the onset of the symptom and found normal. Diagnosis of myocardial injury is made with acute changes in cTn concentrations with at least one serial sample above the 99th percentile upper reference limit (URL), taken together with the patient's clinical presentation. Biotin has been reported to cause a negative bias, interpret results relative to patient's use of biotin. Lab Interpretation (test code = 12109-0) Normal [facility] I - Code [id number] 21:13:21* Test Item Value Reference Range Interpretation Comme nts TROPONIN I (test code = 2875634453) 0.003 ng/mL <=0.034 SIMIN (test code = SIMIN) Reference (Normal) Range (defined by the 99th percentile reference limit): <= 0.034 ng/mL Note: Cardiac troponin begins to rise 3-4 hours after the onset of ischemia. Repeat in 4-6 hours if the sample was drawn within 3-4 hours of the onset of the symptom and found normal. Diagnosis of myocardial injury is made with acute changes in cTn concentrations with at least one serial sample above the 99th percentile upper reference limit (URL), taken together with the patient's clinical presentation. Biotin has been reported to cause a negative bias, interpret results relative to patient's use of biotin. Lab Interpretation (test code = 00242-9) Normal [facility] I - Code [id number] 21:13:21* Test Item Value Reference Range Interpretation Comme nts TROPONIN I (test code = 4253572601) 0.003 ng/mL <=0.034 SIMIN (test code = SIMIN) Reference (Normal) Range (defined by the 99th percentile reference limit): <= 0.034 ng/mL Note: Cardiac troponin begins to rise 3-4 hours after the onset of ischemia. Repeat in 4-6 hours if the sample was drawn within 3-4 hours of the onset of the symptom and found normal. Diagnosis of myocardial injury is made with acute changes in cTn concentrations with at least one serial sample above the 99th percentile upper reference limit (URL), taken together with the patient's clinical presentation. Biotin has been reported to cause a negative bias, interpret results relative to patient's use of biotin. Lab Interpretation (test code = 05415-0) Normal [facility] I - Code [id number] 21:13:21* Test Item Value Reference Range Interpretation Comme nts TROPONIN I (test code = 7866641281) 0.003 ng/mL <=0.034 SIMIN (test code = SIMIN) Reference (Normal) Range (defined by the 99th percentile reference limit): <= 0.034 ng/mL Note: Cardiac troponin begins to rise 3-4 hours after the onset of ischemia. Repeat in 4-6 hours if the sample was drawn within 3-4 hours of the onset of the symptom and found normal. Diagnosis of myocardial injury is made with acute changes in cTn concentrations with at least one serial sample above the 99th percentile upper reference limit (URL), taken together with the patient's clinical presentation. Biotin has been reported to cause a negative bias, interpret results relative to patient's use of biotin. Lab Interpretation (test code = 57763-5) Normal [facility] I - Code [id number] 21:13:21* Test Item Value Reference Range Interpretation Comme nts TROPONIN I (test code = 7323493542) 0.003 ng/mL <=0.034 SIMIN (test code = SIMIN) Reference (Normal) Range (defined by the 99th percentile reference limit): <= 0.034 ng/mL Note: Cardiac troponin begins to rise 3-4 hours after the onset of ischemia. Repeat in 4-6 hours if the sample was drawn within 3-4 hours of the onset of the symptom and found normal. Diagnosis of myocardial injury is made with acute changes in cTn concentrations with at least one serial sample above the 99th percentile upper reference limit (URL), taken together with the patient's clinical presentation. Biotin has been reported to cause a negative bias, interpret results relative to patient's use of biotin. Lab Interpretation (test code = 86421-2) Normal [facility] Metabolic Panel (NA, K, CL, CO2, Glucose, BUN, Creatinine, CA) - Code [id number] 21:01:20* Test Item Value Reference Range Interpretation Comme nts NA (test code = 1954692358) 136 mmol/L 135-145 K (test code = 4218530601) 3.9 mmol/L 3.5-5.0 CL (test code = 1644480860) 106 mmol/L 98-108 CO2 TOTAL (test code = 2523631358) 26 mmol/L 23-31 AGAP (test code = 6116298346) 4 2-16 BUN (test code = 3271292116) 13 mg/dL 7-23 GLUCOSE (test code = 3680206539) 161 mg/dL 70-110 H CREATININE (test code = 2160-0) 0.91 mg/dL 0.60-1.25 CALCIUM (test code = 7169906106) 8.8 mg/dL 8.6-10.6 eGFR (test code = 56299-7) 95.9 mL/min/1.73m2 CKD-EPI eGFR (2020). Assuming creatinine has been stable day-to-day for at least three months, the eGFR indicates Category G1 (>= 90 mL/min/1.73 m2) Lab Interpretation (test code = 24420-3) Abnormal [facility] Glucose (Age >30 Days) - Code Stroke 2024-01-31 21:01:00* Test Item Value Reference Range Interpretation Comme nts POCT Glu (age>30days) (test code = 3342) 161 mg/dL 70-110 A Lab Interpretation (test cod e = 47771-1) Abnormal [facility] Glucose (Age >30 Days) - Code Stroke 2024-01-31 21:01:00* Test Item Value Reference Range Interpretation Comme nts POCT Glu (age>30days) (test code = 3342) 161 mg/dL 70-110 A Lab Interpretation (test cod e = 79375-2) [facility]normal [facility] / [facility] - Code [id number] 21:00:39* Test Item Value Reference Range Interpretation Comme nts PROTIME PATIENT (test code = 5964-2) 12.1 10.1-12.6 INR (test code = 6301-6) 1.1 Normal INR <1.1; Warfarin Therapeutic range 2.0 to 3.0 or 2.5 to 3.5, depending upon the indications. Lab Interpretation (test code = 05905-8) Normal [facility] - Code [id number] 21:00:39* Test Item Value Reference Range Interpretation Comme nts APTT Patient (test code = 3173-2) 35 -36 Lab Interpretation (test cod e = 17528-1) Normal [facility] / [facility]R - Code [id number] 21:00:39* Test Item Value Reference Range Interpretation Comme nts PROTIME PATIENT (test code = 5964-2) 12.1 10.1-12.6 INR (test code = 6301-6) 1.1 Normal INR <1.1; Warfarin Therapeutic range 2.0 to 3.0 or 2.5 to 3.5, depending upon the indications. Lab Interpretation (test code = 05714-7) Normal [facility] - Code [id number] 21:00:39* Test Item Value Reference Range Interpretation Comme nts APTT Patient (test code = 3173-2) -36 Lab Interpretation (test cod e = 62761-4) Normal [facility] without Diff - Code [id number] 20:51:38* Test Item Value Reference Range Interpretation Comme nts WBC (test code = 6690-2) 4.02 4.20-10.70 L RBC (test code = 789-8) 3.38 4.26-5.52 L HGB (test code = 718-7) 9.5 g/dL 12.2-16.4 L HCT (test code = 4544-3) 29.2 % 38.4-49.3 L MCH (test code = 785-6) 28.1 pg 26.1-32.7 MCV (test code = 787-2) 86.4 fL 81.7-95.6 MCHC (test code = 786-4) 32.5 g/dL 31.2-35.0 PLT (test code = 777-3) 106 150-328 L MPV (test code = 94846-8) 10.2 fL 9.8-13.0 RDW-CV (test code = 788-0) 13.4 % 12.1-15.4 RDW-SD (test code = 00808-6) 42.1 fL 38.5-51.6 NRBC x10^3 (test code = 7300171747) See_Comment [Automated [employer] ge] The system which generated this result transmitted reference range: 10*3/?L. The reference range was not used to interpret this result as normal/abnormal. NRBC/100 WBC (test code = 2041586640) 0.0 0.0-10.0 IPF % (test code = 8056084876) Lab Interpretation (test code = 08600-2) Abnormal [facility] GLUCOSE (AUTOMATED)2024-01-31 20:44:20* Test Item Value Reference Range Interpretation Comme [facility] POCT GLU (test code = 8626107594) 168 mg/dL 70-110 H Lab Interpretation (test cod e = 88253-1) Abnormal [facility] GLUCOSE (AUTOMATED)2024-01-31 20:44:20* Test Item Value Reference Range Interpretation Comme [facility] POCT GLU (test code = 0395395080) 168 mg/dL 70-110 H Lab Interpretation (test cod e = 40386-2) Abnormal [facility] CONSULT [id number] 16:40:16 WHITE BLOOD CELLS ARE UNREMARKABLE. MILD NORMOCYTIC NORMOCHROMIC ANEMIA POSSIBLY CONSISTENT WITH EARLY IRON DEFICIENCY. THROMBOCYTOPENIA. NO PLATELET CLUMPS ARE IDENTIFIED.[facility] CONSULT INTERPRETATION 2023-12-21 16:40:16WHITE BLOOD CELLS ARE UNREMARKABLE. MILD NORMOCYTIC NORMOCHROMIC ANEMIA POSSIBLY CONSISTENT WITH EARLY IRON DEFICIENCY. THROMBOCYTOPENIA. NO PLATELET CLUMPS ARE IDENTIFIED.[facility] CONSULT [id number] 16:40:16WHITE BLOOD CELLS ARE UNREMARKABLE. MILD NORMOCYTIC NORMOCHROMIC ANEMIA POSSIBLY CONSISTENT WITH EARLY IRON DEFICIENCY. THROMBOCYTOPENIA. NO PLATELET CLUMPS ARE IDENTIFIED.[facility] CONSULT [id number] 16:40:16WHITE BLOOD CELLS ARE UNREMARKABLE. MILD NORMOCYTIC NORMOCHROMIC ANEMIA POSSIBLY CONSISTENT WITH EARLY IRON DEFICIENCY. THROMBOCYTOPENIA. NO PLATELET CLUMPS ARE IDENTIFIED. [facility] CONSULT [id number] 16:40:16 WHITE BLOOD CELLS ARE UNREMARKABLE. MILD NORMOCYTIC NORMOCHROMIC ANEMIA POSSIBLY CONSISTENT WITH EARLY IRON DEFICIENCY. THROMBOCYTOPENIA. NO PLATELET CLUMPS ARE IDENTIFIED.[facility] GLUCOSE (AUTOMATED)2023-12-19 23:26:58* Test Item Value Reference Range Interpretation Comme nts POCT GLU (test code = 6020258889) 217 mg/dL 70-110 H Lab Interpretation (test cod e = 45756-3) Abnormal [facility] GLUCOSE (AUTOMATED)2023-12-19 18:22:24* Test Item Value Reference Range Interpretation Comme nts POCT GLU (test code = 4863507393) 181 mg/dL 70-110 H Lab Interpretation (test cod e = 09305-4) [facility]2023-12-19 16:48:37* Test Item Value Reference Range Interpretation Comme nts APTT Patient (test code = 3173-2) 106 26-36 HH Lab Interpretation (test cod e = 26319-8) Abnormal [facility] GLUCOSE (AUTOMATED)2023-12-19 14:52:14* Test Item Value Reference Range Interpretation Comme nts POCT GLU (test code = 9418973375) 126 mg/dL 70-110 H Lab Interpretation (test cod e = 26285-1) Abnormal [facility] [id number] 08:26:40Ordering physician: JOSH ESCALANTE STEPH Indication: Left upper quadrant pain Comparison: None Technique: Limited grayscale images of the left upper quadrant wereperformed Findings: The spleen is enlarged, measuring 17 cm in long axis. No adjacentfluid collection is appreciated.[facility] GLUCOSE (AUTOMATED)2023-12-19 01:36:29* Test Item Value Reference Range Interpretation Comme nts POCT GLU (test code = 9779308360) 166 mg/dL 70-110 H Lab Interpretation (test cod e = 52579-7) Abnormal [facility] GLU[facility]SE ([facility]ATED)2023-12-18 22:35:10* Test Item Value Reference Range Interpretation Comme nts POCT GLU (test code = 1747224572) 128 mg/dL 70-110 H Lab Interpretation (test cod e = 17861-0) Abnormal [facility] TexasReticulocytes Kepudwwti6693-59-85 21:26:51* Test Item Value Reference Range Interpretation Comme nts RETIC Count Automated (test code = 5393699171) 1.43 % 0.59-2.24 RETIC Absolute Count (test c ode = 6660486324) 0.0559 0.0260-0.1170 IRF % (test code = 4250710230) 6.10 % 2.00-19.10 RETIC-HE (test code = 6013233911) 33.3 pg 27.3-36.4 Lab Interpretation (test cod e = 43705-8) Normal [facility] Texas[facility]eticul[facility] Bfbejnlki5558-02-36 21:26:51* Test Item Value Reference Range Interpretation Comme nts RETIC Count Automated (test code = 6978620263) 1.43 % 0.59-2.24 RETIC Absolute Count (test c ode = 9877025809) 0.0559 0.0260-0.1170 IRF % (test code = 5995430006) 6.10 % 2.00-19.10 RETIC-HE (test code = 7826853348) 33.3 pg 27.3-36.4 Lab Interpretation (test cod e = 48762-3) Normal [facility] Texas[facility]eticulocytes Oeaabncts2550-23-45 21:26:51* Test Item Value Reference Range Interpretation Comme nts RETIC Count Automated (test code = 0721246012) 1.43 % 0.59-2.24 RETIC Absolute Count (test c ode = 3554166322) 0.0559 0.0260-0.1170 IRF % (test code = 9774642155) 6.10 % 2.00-19.10 RETIC-HE (test code = 4677543672) 33.3 pg 27.3-36.4 Lab Interpretation (test cod e = 93645-6) Normal [facility] Texas[facility]eticul[facility] Fraefgfwj0629-34-34 21:26:51* Test Item Value Reference Range Interpretation Comme nts RETIC Count Automated (test code = 5767724957) 1.43 % 0.59-2.24 RETIC Absolute Count (test c ode = 3594297372) 0.0559 0.0260-0.1170 IRF % (test code = 2842422273) 6.10 % 2.00-19.10 RETIC-HE (test code = 8234541897) 33.3 pg 27.3-36.4 Lab Interpretation (test cod e = 41589-3) Normal [facility] Texas[facility]eticul[facility] Uclljmjim3499-04-77 21:26:51* Test Item Value Reference Range Interpretation Comme nts RETIC Count Automated (test code = 5448902494) 1.43 % 0.59-2.24 RETIC Absolute Count (test c ode = 5873894836) 0.0559 0.0260-0.1170 IRF % (test code = 1767242019) 6.10 % 2.00-19.10 RETIC-HE (test code = 4626390737) 33.3 pg 27.3-36.4 Lab Interpretation (test cod e = 66269-9) Normal [facility] Pmmenmflz5754-32-03 21:26:51* Test Item Value Reference Range Interpretation Comme nts RETIC Count Automated (test code = 8173674993) 1.43 % 0.59-2.24 RETIC Absolute Count (test c ode = 5698692322) 0.0559 0.0260-0.1170 IRF % (test code = 8142681086) 6.10 % 2.00-19.10 RETIC-HE (test code = 4747967545) 33.3 pg 27.3-36.4 Lab Interpretation (test cod e = 17764-6) Normal [facility] with Dzky8120-18-72 20:51:47* Test Item Value Reference Range Interpretation Comme nts WBC (test code = 6690-2) 4.40 4.20-10.70 RBC (test code = 789-8) 3.90 4.26-5.52 L HGB (test code = 718-7) 11.7 g/dL 12.2-16.4 L HCT (test code = 4544-3) 34.9 % 38.4-49.3 L MCV (test code = 787-2) 89.5 fL 81.7-95.6 MCH (test code = 785-6) 30.0 pg 26.1-32.7 MCHC (test code = 786-4) 33.5 g/dL 31.2-35.0 RDW-SD (test code = 30590-2) 44.8 fL 38.5-51.6 RDW-CV (test code = 788-0) 13.6 % 12.1-15.4 PLT (test code = 777-3) 92 150-328 L MPV (test code = 31249-6) 11.1 fL 9.8-13.0 IPF % (test code = 9725678002) 5.1 % 1.2-10.7 Platelet count measured by fluorescence method. NRBC/100 WBC (test code = 3573095903) 0.0 0.0-10.0 NRBC x10^3 (test code = 3427989062) See_Comment [Automated [employer]] The system which generated this result transmitted reference range: 10*3/?L. The reference range was not used to interpret this result as normal/abnormal. GRAN MAT (NEUT) % (test code = 770-8) 52.6 % IMM GRAN % (test code = 2069635906) 0.20 % LYMPH % (test code = 736-9) 34.3 % MONO % (test code = 5905-5) 10.2 % EOS % (test code = 713-8) 2.0 % BASO % (test code = 706-2) 0.7 % GRAN MAT x10^3(ANC) (test code = 2094793242) 2.31 10*3/uL 1.99-6.95 IMM GRAN x10^3 (test code = 2456892269) 0.00-0.06 LYMPH x10^3 (test code = 731-0) 1.51 10*3/uL 1.09-3.23 MONO x10^3 (test code = 742-7) 0.45 10*3/uL 0.36-1.02 EOS x10^3 (test code = 711-2) 0.09 10*3/uL 0.06-0.53 BASO x10^3 (test code = 704-7) 0.03 10*3/uL 0.01-0.09 Lab Interpretation (test code = 67585-8) Abnormal [facility] Kocnm6706-39-70 20:34:26* Test Item Value Reference Range Interpretation Comme nts IRON (test code = 0011908977) 46 ug/dL 50-160 L TIBC (test code = 7763310018) 387 ug/dL 250-410 % FE SAT (test code = 4079023697) 12 % 20-50 L Lab Interpretation (test cod e = 05180-8) Abnormal [facility] Stqfh5447-73-03 20:34:26* Test Item Value Reference Range Interpretation Comme nts IRON (test code = 0229257673) 46 ug/dL 50-160 L TIBC (test code = 2893312561) 387 ug/dL 250-410 % FE SAT (test code = 8649628457) 12 % 20-50 L Lab Interpretation (test cod e = 77394-0) Abnormal [facility] GLUCOSE (AUTOMATED)2023-12-18 17:04:34* Test Item Value Reference Range Interpretation Comme [facility] POCT GLU (test code = 9131972881) 173 mg/dL 70-110 H Lab Interpretation (test cod e = 61314-4) Abnormal [facility] (for use with heparin drip)2023-12-18 15:59:02* Test Item Value Reference Range Interpretation Comme [facility] APTT Patient (test code = 3173-2) 59 26-36 H Lab Interpretation (test cod e = 12942-9) Abnormal [facility] TexasCT HEAD WO [id number] 15:48:40CT HEAD WO CONTRAST HISTORY: Stroke, follow up COMPARISON: Prior head imaging. TECHNIQUE: Nonenhanced CT scan of the head was done in multiple dimensions. FINDINGS: The ventricles and cerebral sulci are normal in caliber and configuration.No hydrocephalus, midline shift or pathological extra-axial f luidcollection is present. The basal cisterns are unremarkable. There is no acute intracranial hemorrhage or significant mass effect.Unchanged medium-size acute/subacute infarction seen at the right coronaradiata/centrum semiovale. Subtle periventricular and deep white matterlow-attenuation areas, nonspecific and likely related to chronicmicrovascular ischemic changes. The kaiser-white matter differentiation ispreserved. The mastoid air cells and visualized paranasal air sinuses are clear. Thecalvarium and central skull base are unremarkable. Intracranialatherosclerosis.[facility] GLU[facility]SE (AUT[facility]ATED)2023-12-18 14:04:55* Test Item Value Reference Range Interpretation Comme nts POCT GLU (test code = 5203587270) 183 mg/dL 70-110 H Lab Interpretation (test cod e = 02054-4) Abnormal [facility] without Izjg0536-59-07 09:32:22* Test Item Value Reference Range Interpretation Comme nts WBC (test code = 6690-2) 4.06 4.20-10.70 L RBC (test code = 789-8) 3.94 4.26-5.52 L HGB (test code = 718-7) 11.7 g/dL 12.2-16.4 L HCT (test code = 4544-3) 34.6 % 38.4-49.3 L MCH (test code = 785-6) 29.7 pg 26.1-32.7 MCV (test code = 787-2) 87.8 fL 81.7-95.6 MCHC (test code = 786-4) 33.8 g/dL 31.2-35.0 PLT (test code = 777-3) 90 150-328 L MPV (test code = 70839-4) 10.8 fL 9.8-13.0 RDW-CV (test code = 788-0) 13.6 % 12.1-15.4 RDW-SD (test code = 53703-6) 44.2 fL 38.5-51.6 NRBC x10^3 (test code = 6881746184) See_Comment [Automated [employer]] The system which generated this result transmitted reference range: 10*3/?L. The reference range was not used to interpret this result as normal/abnormal. NRBC/100 WBC (test code = 9749451249) 0.0 0.0-10.0 IPF % (test code = 5893478526) 4.1 % 1.2-10.7 Platelet count measured by fluorescence method. Lab Interpretation (test code = 05622-3) Abnormal [facility] (for use with heparin drip)2023-12-18 09:14:12* Test Item Value Reference Range Interpretation Comme [facility] APTT Patient (test code = 3173-2) 60 26-36 H Lab Interpretation (test cod e = 15657-3) Abnormal [facility] TexasProthrombin Time / [id number] 09:14:12* Test Item Value Reference Range Interpretation Comme [facility] PROTIME PATIENT (test code = 5964-2) 11.9 10.1-12.6 INR (test code = 6301-6) 1.1 Normal INR <1.1; Warfarin Therapeutic range 2.0 to 3.0 or 2.5 to 3.5, depending upon the indications. Lab Interpretation (test code = 79710-9) Normal [facility] Metabolic Panel (NA, K, CL, CO2, GLUCOSE, BUN, CREATININE, CA)2023-12-18 09:11:19* Test Item Value Reference Range Interpretation Comme [facility] NA (test code = 7292947112) 138 mmol/L 135-145 K (test code = 7219794646) 3.8 mmol/L 3.5-5.0 CL (test code = 7778494014) 107 mmol/L 98-108 CO2 TOTAL (test code = 8283138520) 27 mmol/L 23-31 AGAP (test code = 8187966153) 4 2-16 BUN (test code = 6529014322) 13 mg/dL 7-23 GLUCOSE (test code = 8119914404) 129 mg/dL 70-110 H CREATININE (test code = 2160-0) 1.04 mg/dL 0.60-1.25 CALCIUM (test code = 7569480034) 8.6 mg/dL 8.6-10.6 eGFR (test code = 09776-8) 81.7 mL/min/1.73m2 CKD-EPI eGFR (2020). Assuming creatinine has been stable day-to-day for at least three months, the eGFR indicates Category G2 (60 - 89 mL/min/1.73 m2) Lab Interpretation (test code = 16812-2) Abnormal [facility] TexasMagnesium2024-04-05 09:11:19* Test Item Value Reference Range Interpretation Comme nts MAGNESIUM (test code = 9211537491) 2.2 mg/dL 1.7-2.4 Lab Interpretation (test cod e = 89017-3) Normal [facility] (for use with heparin drip)2023-12-18 04:55:55* Test Item Value Reference Range Interpretation Comme nts APTT Patient (test code = 3173-2) 57 26-36 H Lab Interpretation (test cod e = 71849-2) Abnormal [facility] GLUCOSE (AUTOMATED)2023-12-18 03:19:19* Test Item Value Reference Range Interpretation Comme nts POCT GLU (test code = 0204456992) 108 mg/dL 70-110 Lab Interpretation (test cod e = 62550-5) Normal [facility] GLUCOSE (AUTOMATED)2023-12-17 21:04:38* Test Item Value Reference Range Interpretation Comme nts POCT GLU (test code = 9918292346) 155 mg/dL 70-110 H Lab Interpretation (test cod e = 87452-5) Abnormal [facility] GLUCOSE (AUTOMATED)2023-12-17 17:01:38* Test Item Value Reference Range Interpretation Comme nts POCT GLU (test code = 4309366749) 152 mg/dL 70-110 H Lab Interpretation (test cod e = 23946-5) Abnormal [facility] TexasXR CHEST 1 [id number] 14:22:48EXAM: XR CHEST 1 VW COMPARISON: 12/06/2021 HISTORY: chf FINDINGS Lungs: The lungs are adequately expanded. Mild streaky opacities in theleft lung base. Heart/Mediastinum: The cardiac silhouette appears normal accounting fortechnique and degree of inspiration. Bones and soft tissues: No osseous abnormality is visualized. [facility] GLUCOSE (AUTOMATED)2023-12-17 12:52:03* Test Item Value Reference Range Interpretation Comme nts POCT GLU (test code = 8204290540) 129 mg/dL 70-110 H Lab Interpretation (test cod e = 11847-9) Abnormal [facility] GLUCOSE (AUTOMATED)2023-12-17 01:58:54* Test Item Value Reference Range Interpretation Comme nts POCT GLU (test code = 4403667290) 159 mg/dL 70-110 H Lab Interpretation (test cod e = 54160-1) Abnormal [facility] TexasMR STROKE BRAIN WO [id number] 00:44:07 MR STROKE BRAIN WO CONTRAST COMPARISON: CT head 12/16/2023. HISTORY: Neuro deficit, acute, stroke suspected S/SX, Dx: Stroke TECHNIQUE: Multisequence multiplanar MR images of the brain obtainedwithout IV contrast. FINDINGS: The ventricles and cerebral sulci are normal in caliber and configuration.No midline shift, hydrocephalus or pathological extra-axial fluidcollection is present. The basal cisterns are unremarkable. There is restricted diffusion in the right frontoparietal region, includingright insula, compatible with acute/subacute infarct. Scattered T2/FLAIRhyperintense foci in the periventricular and deep white matter arenonspecific but likely due to mild chronic microvascular ischemicchanges.Few foci of susceptibility in the right insula likely due to petechialhemorrhage. No abnormal fluid signal is present in the mastoid air cells or paranasalair sinuses.[facility] TexasSTROKE Protocol - Transthoracic echo (TTE)2023-12-16 23:58:28* Test Item Value Reference Range Interpretation Comme nts Height (test code = 4357277517) 74 in Weight (test code = 6687890446) 190 lbs Systolic BP (test code = 3986347149) 158 mmHg Diastolic BP (test code = 7433868527) 75 mmHg Heart Rate (test code = 7744537130) 70 bpm LVOT stroke volume (test code = 6325529315) 79.80 cm3 LVOT diameter (test code = 8191044946) 2.32 cm LVOT area (test code = 0204719783) 4.20 cm2 MV Peak E Nilesh (test code = 2733480056) 84.9 cm/s MV Peak A Nilesh (test code = 8387303291) 64.5 cm/s E/A ratio (test code = 0759146463) 1.32 ratio E wave decelartion time (test code = 8934256955) 0.21 s LA Volume Index (BP) (test code = 6900374867) 21.5 mL/m2 LA volume (BP) (test code = 4018668258) 45.7 mL LVOT peak nilesh (test code = 8988936256) 90.7 cm/s LVOT mn grad (test code = 4238112774) 1.4 mmHg BSA (test code = 3769856292) 2.13 m2 LA size (test code = 7359791521) 3.5 cm LAV(MOD-sp2) (test code = 4250176750) 49.80 mL LAV(MOD-sp4) (test code = 5378927574) 38.10 mL Tapse (test code = 9617797569) 2.8 cm AV LVOT peak gradient (test code = 6880077492) 3.3 mmHg LVOT peak VTI (test code = 5827420842) 18.9 cm LV V1 mean (test code = 7276296120) 54.30 cm/s MV Prop V (test code = 5346076594) 40.80 cm/s Ao root diam (test code = 8055244894) 3.40 cm Aortic root (test code = 2206780410) 3.4 cm Ao root annulus (test code = 1720729730) 3.4 cm Radiology Study observation (narrative) (test code = 44879-5) SIMIN (test code = SIMIN) ?Left?Ventricle: Left ventricle size is normal. Normal wall thickness. Normal wall motion. Normal systolic function with a visually estimated EF of 55 - 60%. Normal diastolic function. ?Right?Ventricle: Right ventricle size is normal. Normal systolic function. ?Tricuspid?Valve: Trace transvalvular regurgitation. Insufficient tricuspid regurgitation jet to estimate RVSP . ?Left?Atrium: Saline contrast findings, < 30 micro-bubbles crossing indicating possible smalll PFO. Lipomatous hypertrophy present. Recommend LORE if clinically indicated to better assess intracardiac shunt. Left VentricleLeft ventricle size is normal. Normal wall thickness. Normal wall motion. Normal systolic function with a visually estimated EF of 55 - 60%. Normal diastolic function.Right VentricleRight ventricle size is normal. Normal systolic function.Left AtriumLeft atrium size is normal. Saline contrast findings, < 30 micro-bubbles crossing indicating possible smalll PFO. Lipomatous hypertrophy present. Recommend LORE if clinically indicated to better assess intracardiac shunt.Right AtriumRight atrium size is normal.IVC/SVCIVC diameter is less than or equal to 21 mm and decreases greater than 50% during inspiration; therefore the estimated right atrial pressure is normal (~0-5 mmHg).Mitral ValveMitral valve structure is normal. Trace transvalvular regurgitation. No stenosis.Tricuspid ValveTricuspid valve structure is normal. Trace transvalvular regurgitation. Insufficient tricuspid regurgitation jet to estimate RVSP . No stenosis.Aortic ValveAortic valve structure is normal. Trace transvalvular regurgitation. No evidence of aortic stenosis.Pulmonic ValveNot well visualized. Trace transvalvular regurgitation. No stenosis.Ascending AortaNormal sized aortic root.PericardiumThe pericardium is normal. No pericardial effusion.Study DetailsStudy quality was good. A complete echocardiogram was performed using 2D, color flow Doppler and spectral Doppler. The apical, parasternal, subcostal and suprasternal views were obtained. 3 mL of Optison ultrasound enhancing agent used and saline contrast was performed. Patient exhibited sinus rhythm. [facility] TexasGlycosyated Hemoglobin (A1C)2023-12-16 21:40:34* Test Item Value Reference Range Interpretation Comme nts HGB A1C (test code = 4548-4) 6.4 % 4.0-5.7 H SIMIN (test code = SIMIN) Reference RangesNormal: <5.7%Prediabetes: 5.7 - 6.4%Diabetes: > 6.5% Lab Interpretation (test code = 05982-5) Abnormal [facility] TexasGlycosyated Hemoglobin (A1C)2023-12-16 21:40:34* Test Item Value Reference Range Interpretation Comme nts HGB A1C (test code = 4548-4) 6.4 % 4.0-5.7 H SIMIN (test code = SIMIN) Reference RangesNormal: <5.7%Prediabetes: 5.7 - 6.4%Diabetes: > 6.5% Lab Interpretation (test code = 10218-1) Abnormal [facility] TexasGlycosyated Hemoglobin (A1C)2023-12-16 21:40:34* Test Item Value Reference Range Interpretation Comme nts HGB A1C (test code = 4548-4) 6.4 % 4.0-5.7 H SIMIN (test code = SIMIN) Reference RangesNormal: <5.7%Prediabetes: 5.7 - 6.4%Diabetes: > 6.5% Lab Interpretation (test code = 14000-2) Abnormal [facility] TexasGlycosyated Hemoglobin (A1C)2023-12-16 21:40:34* Test Item Value Reference Range Interpretation Comme nts HGB A1C (test code = 4548-4) 6.4 % 4.0-5.7 H SIMIN (test code = SIMIN) Reference RangesNormal: <5.7%Prediabetes: 5.7 - 6.4%Diabetes: > 6.5% Lab Interpretation (test code = 03408-1) Abnormal [facility] TexasGlycosyated Hemoglobin (A1C)2023-12-16 21:40:34* Test Item Value Reference Range Interpretation Comme nts HGB A1C (test code = 4548-4) 6.4 % 4.0-5.7 H SIMIN (test code = SIMIN) Reference RangesNormal: <5.7%Prediabetes: 5.7 - 6.4%Diabetes: > 6.5% Lab Interpretation (test code = 06801-4) Abnormal [facility] TexasGlycosyated Hemoglobin (A1C)2023-12-16 21:40:34* Test Item Value Reference Range Interpretation Comme nts HGB A1C (test code = 4548-4) 6.4 % 4.0-5.7 H SIMIN (test code = SIMIN) Reference RangesNormal: <5.7%Prediabetes: 5.7 - 6.4%Diabetes: > 6.5% Lab Interpretation (test code = 40535-5) Abnormal [facility] TexasCT ACUTE STROKE ANGIOGRAM [id number] 20:32:41CT STROKE ANGIOGRAM NECK, CT STROKE ANGIOGRAM HEAD HISTORY: 63 years old Male with Neuro deficit, acute, stroke suspected Rad:please obtain POCT creatinine prior to CTA head/neck TECHNIQUE: CTA of the head and neck with coronal, sagittal reformats, andMIPS reconstruction was performed. COMPARISON: ? CT head from the same date and 12/04/2021. FINDINGS: CTA HEAD: The PICA origin is visualized bilaterally. The basilar artery is normal incaliber. The superior cerebellar arteries are unremarkable. Theposteriorcerebral arteries are unremarkable. Bilateral posterior commuting arteriesare visualized. Calcified and noncalcified atherosclerotic plaques are present in thebilateral carotid siphons result in moderate stenosis of right supraclinoidICA. The intracranial internal carotid arteries are otherwise patent.Filling defect is noted at the proximal inferior division of M2 MCA withdistal reconstitution. The anterior cerebral arteries and left middlecerebral artery are unremarkable. An anterior c ommunicating artery isvisualized. Dural venous sinuses are patent. CTA NECK: Standard 3 vessel aortic arch. The ostia of the great neck vessels are freeof significant stenosis. The innominate and subclavian arteries are patent with normal course. Filling defect likely thrombus at the right proximalinternal carotidartery results in near complete occlusion. The internal carotid arterydistal to thethrombus is patent but small in caliber. Calcified andnoncalcified plaques of the left ICA mild approximately 30% stenosis. Thevertebral arteries originate normally from the subclavian arteries and ar epatent along their course. Cervical soft tissues: An incidental 8 mm hypoattenuating nodule in theleft thyroid lobe is noted. Lung apices: Unremarkable. Cervical spine: No acute bony abnormality.[facility] TexasCT ACUTE STROKE ANGIOGRAM [id number] 20:32:41CT STROKE ANGIOGRAM NECK, CT STROKE ANGIOGRAM HEAD HISTORY: 63 years old Male with Neuro deficit, acute, stroke suspected Rad:please obtain POCT creatinine prior to CTA head/neck TECHNIQUE: CTA of the head and neck with coronal, sagittal reformats, andMIPS reconstruction was performed. COMPARISON: ?CT head from the same date and 12/04/2021. FINDINGS: CTA HEAD: The PICA origin is visualized bilaterally. The basilar artery is normal incaliber. The superior cerebellar arteries are unremarkable. Theposteriorcerebral arteries are unremarkable. Bilateral posterior commuting arteriesare visualized. Calcified and noncalcified atherosclerotic plaques are present in thebilateral carotid siphons result in moderate stenosis of right supraclinoidICA. The intracranial internal carotid arteries are otherwise patent.Filling defect is noted at the proximal inferior division of M2 MCA withdistal reconstitution. The anterior cerebral arteries and left middlecerebral artery are unremarkable. An anterior communicating artery isvisualized. Dural venous sinuses are patent. CTA NECK: Standard 3 vessel aorti c arch. The ostia of the great neck vessels are freeof significant stenosis. The innominate and subclavian arteries are patent with normal course. Filling defect likely thrombus at the right proximalinternal carotidartery results in near complete occlusion. The internal carotid arterydistal to thethrombus is patent but small in caliber. Calcified andnoncalcified plaques of the left ICA mild approximately 30% stenosis. Thevertebral arteries originate normally from the subclavian arteries and arepatent along their course. Cervical soft tissues: An incidental 8 mm hypoattenuating nodule in theleft thyroid lobe is noted. Lung apices: Unremarkable. Cervical spine: No acute bony abnormality.[facility] W [id number] 20:26:58EXAM: CT STROKE PERFUSION W CONTRAST HISTORY: 63 years-old Male; Provided Indication: Neuro deficit, acute,stroke suspected . COMPARISON: Same day CT Head and CT Angiogram Head. TECHNIQUE: Whole brain CT perfusion was performed after administration ofIV contrast. Post processing was performed utilizing RAPID software. Doselowering technique(s) such as automated exposure control, iterativereconstruction, and mA and/or KV adjustment for patient size was utilizedfor this examination. FINDINGS: No ischemic penumbra, core volume, territory at risk, or mismatch volume ispresent. Ischemic penumbra involving the frontal and parietal lobes. Core volume (CBF < 30%) 8 mL, territory at risk (Transittime > 6.0 s) 58mL, with mismatch volume 50 mL, and a mismatch ratio of 7.2.[facility] ACUTE STROKE HEAD WO [id number] 19:27:28EXAM: CT STROKE HEAD WO CONTRAST HISTORY: Neuro deficit, acute, stroke suspected . TECHNIQUE: AxialCT of the head was performed and reconstructed at 5 mmintervals. Coronal and sagittal reformatted images were generated. COMPARISON: None FINDINGS: There is a subtle medium-size age indeterminant right coronaradiata/centrum semiovale hypodensity extending into the right insularcortex, concerning for an acute/subacute infarction (new from prior scan). The ventricles and cerebral sulci are normal in caliber and configuration.No midline shift or pathological extra-axial fluid collection is present.The basal cisterns are unremarkable. No acute intracranial hemorrhage or significant mass effect isvisualized.The kaiser-white matter differentiation is preserved. The mastoid air cells and paranasal air sinuses are clear. The calvariumand central skull base are unremarkable.[facility] Texas[facility] without Diff - Code [id number] 18:56:52* Test Item Value Reference Range Interpretation Comme nts WBC (test code = 6690-2) 5.98 4.20-10.70 RBC (test code = 789-8) 4.03 4.26-5.52 L HGB (test code = 718-7) 12.1 g/dL 12.2-16.4 L HCT (test code = 4544-3) 36.0 % 38.4-49.3 L MCH (test code = 785-6) 30.0 pg 26.1-32.7 MCV (test code = 787-2) 89.3 fL 81.7-95.6 MCHC (test code = 786-4) 33.6 g/dL 31.2-35.0 PLT (test code = 777-3) 114 150-328 L MPV (test code = 75468-3) 10.6 fL 9.8-13.0 RDW-CV (test code = 788-0) 13.8 % 12.1-15.4 RDW-SD (test code = 23525-8) 45.6 fL 38.5-51.6 NRBC x10^3 (test code = 6382633110) See_Comment [Automated messa ge] The system which generated this result transmitted reference range: 10*3/?L. The reference range was not used to interpret this result as normal/abnormal. NRBC/100 WBC (test code = 0252811723) 0.0 0.0-10.0 IPF % (test code = 5291099697) Lab Interpretation (test code = 23070-3) Abnormal [facility] Texas[facility]roponin I - Code [id number] 18:54:31* Test Item Value Reference Range Interpretation Comme nts TROPONIN I (test code = 0523870720) 0.004 ng/mL <=0.034 SIMIN (test code = SIMIN) Reference (Normal) Range (defined by the 99th percentile reference limit): <= 0.034 ng/mL Note: Cardiac troponin begins to rise 3-4 hours after the onset of ischemia. Repeat in 4-6 hours if the sample was drawn within 3-4 hours of the onset of the symptom and found normal. Diagnosis of myocardial injury is made with acute changes in cTn concentrations with at least one serial sample above the 99th percentile upper reference limit (URL), taken together with the patient's clinical presentation. Biotin has been reported to cause a negative bias, interpret results relative to patient's use of biotin. Lab Interpretation (test code = 08018-4) Normal [facility] Texas[facility]asi Metabolic Panel (NA, K, CL, CO2, Glucose, BUN, Creatinine, CA) - Code [id number] 18:41:51* Test Item Value Reference Range Interpretation Comme [facility] NA (test code = 0339965224) 137 mmol/L 135-145 K (test code = 5595456326) 4.1 mmol/L 3.5-5.0 CL (test code = 3445686736) 105 mmol/L 98-108 CO2 TOTAL (test code = 2409704227) 27 mmol/L 23-31 AGAP (test code = 9794329305) 5 2-16 BUN (test code = 1419676202) 14 mg/dL 7-23 GLUCOSE (test code = 4305145893) 112 mg/dL 70-110 H CREATININE (test code = 2160-0) 0.95 mg/dL 0.60-1.25 CALCIUM (test code = 2539688409) 9.2 mg/dL 8.6-10.6 eGFR (test code = 82939-8) 91.1 mL/min/1.73m2 CKD-EPI eGFR (2020). Assuming creatinine has been stable day-to-day for at least three months, the eGFR indicates Category G1 (>= 90 mL/min/1.73 m2) Lab Interpretation (test code = 49884-2) Abnormal [facility] TexasProthrombin Time / INR - Code [id number] 18:39:49* Test Item Value Reference Range Interpretation Comme [facility] PROTIME PATIENT (test code = 5964-2) 12.3 10.1-12.6 INR (test code = 6301-6) 1.1 Normal INR <1.1; Warfarin Therapeutic range 2.0 to 3.0 or 2.5 to 3.5, depending upon the indications. Lab Interpretation (test code = 17202-9) Normal [facility] TexasaPTT - Code [id number] 18:39:49* Test Item Value Reference Range Interpretation Comme [facility] APTT Patient (test code = 3173-2) 35 26-36 Lab Interpretation (test cod e = 50638-7) Normal [facility] GLUCOSE (AUTOMATED)2023-12-16 18:15:36* Test Item Value Reference Range Interpretation Comme nts POCT GLU (test code = 8789203739) 126 mg/dL 70-110 H Lab Interpretation (test cod e = 90446-7) Abnormal [facility] Glucose (Age >30 Days) - Code Stroke 2023-12-16 18:15:00* Test Item Value Reference Range Interpretation Comme nts POCT Glu (age>30days) (test code = 3342) 126 mg/dL 70-110 A Lab Interpretation (test cod e = 86135-7) Abnormal [facility] Consult Notes Date/Time Note Provider Source 2024-03-22 11:09:57 Associated Order(s): CONSULT ADULT OCCUPATIONAL THERAPY 03/22/2024 OCCUPATIONAL THERAPY NOTE: Consult received, chart reviewed. Per chart review, patient has discharged and was ambulatory with steady gait leaving ED. Patient discharged prior to completion of OT consult. GENNY Kothari, OTD Pager #: [phone] Keli Dyson OT [facility] 2024-03-22 11:08:27 Associated Order(s): CONSULT ADULT PHYSICAL THERAPY 03/22/2024 11:10 AM Physical therapy note: Physical therapy consult received and chart reviewed. However per chart, patient is discharged from hospital prior to PT evaluation and confirmed by calling ED. Thank you Stefan SuttonPT, DPT, CCS Board-Certified Clinical Specialist in Cardiovascular and Pulmonary Physical Therapy Stefan Sutton PT [facility] 2024-02-27 13:30:58 Associated Order(s): CONSULT NEUROLOGY GENERAL NEUROLOGY CONSULT NOTE DATE OF SERVICE: 02/27/2024 13:31 REQUESTING PHYSICIAN: bhargav Reason for Consult: We were asked to see this patient to give my opinion regarding Keyla Little, 63 year old , male who presents with AMS. 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 History was obtained from the patient her girl friend at the bedside. As per his girlfriend, after the discharge post procedure TIPS/embolization (02/14/2024). Patient was lethargic, seem tired, drowsy, however was still able to do the works like ordering materials for her apartment remodeling and other ordering stuffs as well. However since last thu (02/10/24) she noticed he has been more drowsy, tired, and on the same day he was mentioning about 3 bottles and he had only one bottle in his hand. Next day on (02/11/24), she noticed his apartment was messed up, things were here and there, he was pulling things. He was very tired, drowsy, lethargic and also was not following commands, seem confuse. This was concerning, she did not know what to do so called police. After then they called EMS and brought him to [facility] for further evaluation and management. CTH wo (02/25/2024) did not show any acute intracranial abnormality. Blood culture no growth for 24 hrs. Ammonia 58 (9-33). Of note, patient was seen by our stroke team on 01/05/2024. During that time he presented with left sided weakness and was found to have acute R MCA territory stroke, and also sev R ICA stenosis and also rt inferior M2 occlusion. MRI confirmed R MCA stroke (01/31/2024). He was evaluated by our stroke team on 02/09/2024, during that time he presented with 3-4 episodes of hemetemesis. Neurology was conculted to comment on DAPT given his new bleed. We recommended to stop brilinta and continue on ASA 81 and lipitor 40 mg daily. Also recommended to keep permissible, MAP>65 and SBP goal 120-160 mm Hg during EGD and colonoscopy. PAST MEDICAL HISTORY History reviewed. No pertinent past medical history. PAST SURGICAL HISTORY Past Surgical History: Procedure Laterality Date COLONOSCOPY Lower 02/11/2024 Surgeon: Jonnathan Florez MD; Location: [facility]COPY ([facility]) OR LOCATION ESOPHAGOGASTRODUODENOSCOPY Upper 02/11/2024 Surgeon: Jonnathan Florez MD; Location: [facility]OSCOPY ([facility]) OR LOCATION RADIUS AND ULNA ORIF Right 02/25/2016 Surgeon: Ericka Bergman; Location: [facility] SPLINT APPLICATION Right 02/25/2016 Surgeon: Ericka Bergman; Location: [facility] ULNA ORIF Right 10/10/2016 Surgeon: Cuba Salgado MD; Location: [facility] [place] ULNAR NON-UNION TAKEDOWN Right 10/10/2016 Surgeon: Cuba Salgado MD; Location: [facility] Location FAMILY HISTORY No family history on file. SOCIAL HISTORY Social History Socioeconomic History Marital status: Single Tobacco Use Smoking status: Former Smokeless tobacco: Never Substance and Sexual Activity Alcohol use: Yes Social Determinants of Health Financial Resource Strain: Low Risk (02/10/2024) Overall Financial Resource Strain (CARDIA) Difficulty of Paying Living Expenses: Not hard at all Food Insecurity: No Food Insecurity (02/10/2024) Hunger Vital Sign Worried About Running Out of Food in the Last Year: Never true Ran Out of Food in the Last Year: Never true Transportation Needs: No Transportation Needs (02/10/2024) PRAPARE - Transportation Lack of Transportation (Medical): No Lack of Transportation (Non-Medical): No Physical Activity: Inactive (02/10/2024) Exercise Vital Sign Days of Exercise per Week: 0 days Minutes of Exercise per Session: 0 min Social Connections: Unknown (02/10/2024) Social Connection and Isolation Panel [NHANES] Frequency of Communication with Friends and Family: More than three times a week Marital Status: Living with partner Housing Stability: Low Risk (02/10/2024) Housing Stability Vital Sign Unable to Pay for Housing in the Last Year: No Number of Places Lived in the Last Year: 1 Unstable Housing in the Last Year: No Reviewed patient's family, surgical and social hx. HOME MEDICATIONS Medications Prior to Admission Medication Sig Dispense Refill Last Dose aspirin 81 mg chewable tablet Take 1 tablet by mouth in the morning. 30 tablet 12 foLIC acid 1 mg tablet Take 1 tablet by mouth in the morning. 30 tablet 12 lactulose 10 gram/15 mL (15 mL) oral solution Take 15 mL by mouth in the morning. 300 mL 12 pantoprazole 40 mg EC tablet Take 1 tablet by mouth in the morning and 1 tablet in the evening. 30 tablet 12 nicotine 14 mg/24 hr patch Apply 1 Patch to area(s) every 24 (twenty-four) hours. 28 Each 1 Not Taking atorvastatin (LIPITOR) 40 mg tablet Take 1 tablet by mouth at bedtime. Taking metFORMIN 500 mg/5 mL SSRR Take 500 mg by mouth at bedtime. Taking HOSPITAL MEDICATIONS Current Facility-Administered Medications Medication Dose Route Frequency Last Rate Last Admin acetaminophen (TYLENOL) tablet 650 mg 650 mg Oral Q6HPRN aspirin chewable tablet 81 mg 81 mg Oral DAILY 81 mg at 02/27/24 0928 atorvastatin (LIPITOR) tablet 40 mg 40 mg Oral QHS 40 mg at 02/26/242039 dextrose 50 % in water (D50W) injection 25 mL 25 mL Slow IV Push PRN enoxaparin (LOVENOX) injection 40 mg 40 mg Subcutaneous DAILY 40 mg at 02/27/24 09 foLIC acid (FOLATE) tablet 1 mg 1 mg Oral DAILY 1 mg at 02/27/24927 glucagon (GLUCAGEN DIAGNOSTIC KIT) injection 1 mg 1 mg Intramuscular PRN lactulose (CEPHULAC) 10 gram/15 mL (15 mL) oral solution 30 mL 30 mL Oral TID 30 mL at 02/27/24928 lactulose 300 mL (Dilute to 700 mL with saline or water) enema 1 Enema 1 Enema Rectal Q4HPRN pantoprazole (PROTONIX) EC tablet 40 mg 40 mg Oral BID 40 mg at 02/27/24 0928 Sliding Scale Insulin - Lispro (HumaLOG) Subcutaneous TID MEALS+HS 1 Units at 02/27/24 1217 ALLERGY Allergies Allergen Reactions Liver Nausea and/or Vomiting REVIEW OF SYSTEMS General: (-) fever, (-) chills, (-) weight change, (-) dizziness, (-) fatigue, (-) change in appetite Skin: (-) rash, (-) lesion HEENT: (-) headache, (-) change in hearing, (-) change in vision, (-) nasal discharge, (-) sore throat Neck: (-) pain, (-) difficulty swallowing, (-) mass Heme: (-) bleeding disorder Resp: (-) cough, (-) shortness of breath, (-) dyspnea on exertion Cardio: (-) chest pain, (-) palpitations, (-) syncope GI: (-) abdominal pain, (-) nausea, (-) vomiting, (-) diarrhea, (-) constipation, (-) melena, (-) hematochezia, (-) hematemesis : (-) dysuria, (-) hematuria, (-) increased frequency, (-) difficulty urinating, (-) difficulty initiating Endo: (-) heat intolerance, (-) diabetes, (-) cold intolerance, (-) polyuria, (-) polydipsia, (-) renal insufficiency, (-) thyroid disease Neuro: See HPI Back: (-) pain, (-)spasms MALVIN: (-) muscle pain, (-) joint pain, (-) claudication Psych: (-) anxiety, (-) depression, (-) psychiatric disorder PHYSICAL EXAM Vitals: 02/27/24 0040 02/27/24 0356 02/27/24 0724 02/27/24 1123 BP: (!) 141/55 133/63 (!) 155/71 136/66 BP Location: Left arm Right arm Left arm Patient Position: Supine Supine Supine Pulse: 88 83 81 83 Resp: 12 16 Temp: 36.2 ?C (97.2 ?F) 36 ?C (96.8 ?F) 36.4 ?C (97.6 ?F) 36.6 ?C (97.9 ?F) TempSrc: SpO2: 96% 98% 95% 95% Weight: Height: General: Alert and oriented x 4 (month and year, person, place and situation); no apparent distress. ( Was able to tell current president name,hospital name, state, his date, gf name) Mental Status: Consciousness, attention, concentration: normal, Stays focused and on task while being questioned. Speech/ Language: intact to comprehension, slow to respond but was answering all my questions Remote and recent memory: normal, can recall recent and distant memories Cranial Nerves: I. Not tested. II. PERRL. FOV full to confrontation. III. IV., . Extraocular movements intact without nystagmus. V. Normal sensation in V1-3 distributions. VII. No facial droop noted. VIII. Hearing intact. IX., X. Palatal elevation present symmetrically. XI. Normal strength of sternocleidomastoid and trapezius muscles bilaterally. XII. Tongue in midline. Motor: Tone: normal Bulk: normal Strength: RUE: 5/5, RLE:5/5 LUE: 4/5, LLE: 4/5 (chronic dt stroke) DTR's: Symmetrical Pathologic reflexes and signs: Hollingsworth: absent Babinski: absent Cerebellar: Nystagmus: neg, FTN: nl Sensory: LT: intact Gait: deferred LABS Recent Results (from the past 24 hour(s)) POCT GLUCOSE (AUTOMATED) Collection Time: 02/26/24 6:00 PM Result Value Ref Range POCT GLU 207 (H) 70 - 110 mg/dL POCT GLUCOSE (AUTOMATED) Collection Time: 02/26/24 8:39 PM Result Value Ref Range POCT GLU 295 (H) 70 - 110 mg/dL POCT GLUCOSE (AUTOMATED) Collection Time: 02/27/24 9:34 AM Result Value Ref Range POCT GLU 189 (H) 70 - 110 mg/dL Cbc with Diff Collection Time: 02/27/24 9:48 AM Result Value Ref Range WBC 4.69 4.20 - 10.70 10*3/?L RBC 3.69 (L) 4.26 - 5.52 10*6/?L HGB 9.5 (L) 12.2 - 16.4 g/dL HCT 28.9 (L) 38.4 - 49.3 % MCV 78.3 (L) 81.7 - 95.6 fL MCH 25.7 (L) 26.1 - 32.7 pg MCHC 32.9 31.2 - 35.0 g/dL RDW-SD 40.6 38.5 - 51.6 fL RDW-CV 14.4 12.1 - 15.4 % PLT 147 (L) 150 - 328 10*3/?L MPV 9.7 (L) 9.8 - 13.0 fL NRBC/100 WBC 0.0 0.0 - 10.0 /100 WBCs NRBC x10 3 <0.01 10*3/?L GRAN MAT (NEUT) % 57.7 % IMM GRAN % 0.20 % LYMPH % 27.3 % MONO % 11.3 % EOS % 2.6 % BASO % 0.9 % GRAN MAT x10 3 (ANC) 2.71 1.99 - 6.95 10*3/uL IMM GRAN x10 3 <0.03 0.00 - 0.06 10*3/uL LYMPH x10 3 1.28 1.09 - 3.23 10*3/uL MONO x10 3 0.53 0.36 - 1.02 10*3/uL EOS x10 3 0.12 0.06 - 0.53 10*3/uL BASO x10 3 0.04 0.01 - 0.09 10*3/uL Magnesium Collection Time: 02/27/24 9:48 AM Result Value Ref Range MAGNESIUM 2.2 1.7 - 2.4 mg/dL Basic Metabolic Panel (NA, K, CL, CO2, GLUCOSE, BUN, CREATININE, CA) Collection Time: 02/27/24 9:48 AM Result Value Ref Range NA 140 135 - 145 mmol/L K 4.2 3.5 - 5.0 mmol/L CL 111 (H) 98 - 108 mmol/L CO2 TOTAL 24 23 - 31 mmol/L AGAP 5 2 - 16 BUN 14 7 - 23 mg/dL GLUCOSE 188 (H) 70 - 110 mg/dL CREATININE 0.68 0.60 - 1.25 mg/dL CALCIUM 8.9 8.6 - 10.6 mg/dL eGFR 105.8 mL/min/1.73m2 RADIOLOGY US ABDOMEN LIMITED WITH DOPPLER Result Date: 02/25/2024 Small volume ascites with fluid collections. Preliminary Report Dictated by Resident: Matty Bradley I, Dolores Claros MD., have reviewed this study and agree with the above report. ASSESSMENT AND RECOMMENDATIONS Keyla Little is a 63 year old male with PMHx of tobacco abuse (30 py), HLD, DM-II, R MCA territory stroke (01/31/2024), sev R ICA stenosis and also rt inferior M2 occlusion,decompensated Cirrhosis 2/2 ETOH Use Disorder (Portal HTN, esophageal/gastric varices, s/p TIPS and embolization 02/14/24. Patient currently admitted to the [place] team for AMS and neurology consulted for the same. No new focal deficit noted on exam, except the left sided weakness (chronic dt stroke). Patient was slow to respond but answered all my questions. CTH wo (02/25/2024) did not show any acute intracranial abnormality. Blood culture no growth for 24 hrs, ammonia 58 (9-33). Considering patient's h/o, symptoms and neuro exam clinical picture suggestive of possible TME, which looks improved. Patient is A&O x 4, slow to respond but answered my questions correctly. Lethargy, tiredness, drowsiness, slow to respond could be 2/2 underlying medical condition. # Decompensated Cirrhosis 2/2 ETOH Use Disorder # Portal HTN, esophageal/gastric varices, s/p TIPS and embolization 02/14/24 # TME, improving # Lethargy, drowsiness,tiredness likely 2/2 underlying medical condition # History of R MCA territory stroke # R ICA sev stenosis - MRI brain already ordered by primary team, will follow up - No need of EEG at this time as no concern for seizures, cancelled order - Check vitamin B1, B6, B12, UDS, Ethanol level, lab added as discussed with primary team - Rest as per the primary team, thank you for consulting us in this patient's care Case was discussed with Dr. Estrella , Neurology Faculty and will be staffed in AM Anisa Villa MD Resident | PGY-3 Department of Neurology Neuro Consults/Wards pager ID: [phone] Associated attestation - Yarely Estrella MD - 02/28/2024 2:28 PM CDT I personally examined the patient on and agree with Anisa Mi's note as written. I actively participated in the decision-making process. Please see the resident's note for additional details. Yarely Estrella MD, PhD, FAES Professor, Department of Neurology, [facility]. Epileptologist [facility] - [facility] 2024-02-26 12:45:00 Associated Order(s): CONSULT ADULT OCCUPATIONAL THERAPY OT GENERAL EVALUATION Consult received via [employer], EMR reviewed and evaluation completed 02/26/24. Patient referred to occupational therapy for evaluation and treatment secondary to Altered mental status. Patient agreeable to participate in occupational therapy. Discharge Recommendations: Therapy Needs and Potential:- Patient would benefit from continued skilled occupational therapy services to address: Decline in basic activities of daily living, Decreased strength, Decreased range of motion, and Decreased coordination - Patient demonstrates good potential to improve and meet therapy goals with further skilled occupational therapy services. - Patient appears motivated to improve their B/IADLs and return to their previous level of function. - Patient demonstrates ability to tolerate at least 30-60 minutes of active participation in occupational therapy. - Patient able to follow commands: 1-step Yes, Multi-step No, Inconsistencies Yes Challenges to Home Transition:- Requires physical assistance for BADLS - Requires physical assistance for IADLS - Requires supervision or verbal cues for BADLS - Requires supervision or verbal cues for IADLS - Limited caregiver availability - Decreased safety awareness/judgement - Increased risk of falls - Environmental barriers Equipment Recommendations:Tub transfer bench, Grab bars, and Hand held shower Patient may benefit from intensive Post Acute Occupational Therapy in an IRF PLAN OF CARE: At least 3x/week Precautions: Weight bearing status: NA General: PPE Utilized: Gloves, Fall, and peripheral IV Bracing: N/A Current Occupational Performance and/or Treatment: AM-PAC 6 Clicks (Raw Score 0=Dependent, 24=Independent; Low function Raw Score 0= Dependent, 32=Independent): Raw Score - Daily Activity: 11 T-Scale Score - Daily Activity: 29.04 Feeding: Total Assistance to feed self while semi reclined in bed Grooming: Maximum Assistance to perform simple grooming task( washing face) while sitting EOB LB Dressing: Maximum Assistance to don non skid socks while sitting EOB Toilet Transfer: Minimal Assistance bed<> Commode Toileting Hygiene: Total Assistance for dann care Functional Mobility: HOB elevated, sup -> sit EOB independently, sit <-> stand supervision, amb to/from bathroom with min A utilizing RW. Verbal cues provided for body mechanics and safety. Patient/caregiver educated on:Adaptive equipment , ADL training, Dexterity/fine motor coordination, Fall prevention, General strengthening, Gross motor coordination, Role of OT, and Safety awareness Patient left semireclining in bed with call bae in reach. Visitor present. Please, see full evaluation below for more detail. OT EVALUATION: 63 year old male Admit date: 02/25/2024 Date of onset:02/25/2024 Admit Diagnosis: Altered mental status, unspecified altered mental status type [R41.82] OT Diagnosis: Impaired BADL independence, Decreased endurance, Impaired self-care mobility, and Reduced joint ROM PMH: History reviewed. No pertinent past medical history. PSH: Past Surgical History: Procedure Laterality Date COLONOSCOPY Lower 02/11/2024 Surgeon: Jonnathan Florez MD; Location: ENDOSCOPY () OR LOCATION ESOPHAGOGASTRODUODENOSCOPY Upper 02/11/2024 Surgeon: Jonnathan Florez MD; Location: [facility] ([facility]) OR LOCATION RADIUS AND ULNA ORIF Right 02/25/2016 Surgeon: Ericka Bergman; Location: [facility] SPLINT APPLICATION Right 02/25/2016 Surgeon: Ericka Bergman; Location: [facility] ULNA ORIF Right 10/10/2016 Surgeon: Cuba Salgado MD; Location: [facility] [place] ULNAR NON-UNION TAKEDOWN Right 10/10/2016 Surgeon: Cuba Salgado MD; Location: [facility] [place] PAIN: Denies pain before and after session. OCCUPATIONAL ROLES/HOME ENVIRONMENT: Home environment: Lives with significant other, 24/7 supervision/assistance is available, Single story home, with 16 steps to enter . Bathroom access: Yes Bathroom setup: Combo. Significant other states that there is a walk in shower being installed Occupation(s): Disabled. 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 Left Elbow ROM impaired/ Soft end feel UE Strength: VALENTIN UE 4-/5 Hand dominance: right Dexterity/Coordination: bilateral Fine motor skills Impaired , bilateral Gross motor skills Impaired , and bilateral Finger to nose Impaired Endurance - Sitting: Good Standing: Fair Sitting Balance - Static: Good Dynamic: Fair+ Standing: Balance - Static Fair Dynamic: Fair - Dizziness: Yes Skin Integrity: No breakdown noted and defer full skin assessment to nursing Sensation: bilateral Intact to light touch Oral Motor: WFL Communication: Able to verbalize needs Yes Other: N/A Vision: WFL No Other: visual blurring, visual loss Hearing: good; no issues reported COGNITION: Orientation: person, place, and situation Follows Commands: 1-step Yes Multi-step No Inconsistencies No Safety Awareness/Judgment: Poor and Requires frequent cueing PROBLEM LIST: Decreased independence with ADL, Decreased strength/endurance for functional activity, Impaired safety awareness, and Impaired Cognition REHAB POTENTIAL/PROGNOSIS: good PATIENT/FAMILY GOALS: " to be able to take care of myself" TREATMENT/INTERVENTION PLAN: Functional motor treatment, Patient/Caregiver Education, Equipment recommendations, Daily living activities, Therapeutic exercises, and Neuromuscular Re-Education GOAL(S): By discharge, patient will increase independence in daily living skills as follows: 1 Patient will perform toilet transfer with independence. 2 Patient will complete toileting hygiene, including clothing management, with independence. 3 Patient will perform UB dressing with minimal assistance. 4 Patient will perform LB dressing with moderate assistance. 5 Patient will complete grooming tasks with supervision while standing at the sink. 6 Patient will increase endurance for functional activity as evidenced by ability to sustain 30 minutes of active participation. 7 Patient/caregiver will verbalize/demonstrate understanding/proficiency in the following home programs: AAROM, Adaptive equipment , Dexterity/fine motor coordination, Fall prevention, General strengthening, and Gross motor coordination PATIENT-FAMILY TEACHING Patient provided with preferred teaching of verbal information on Adaptive equipment , ADL training, Dexterity/fine motor coordination, Fall prevention, General strengthening, Gross motor coordination, Role of OT, and Safety awareness. Shows readiness to learn. Verbal instruction teaching provided. Individual needs reinforcement of teaching. GENNY Singer *This may not be patient's primary therapist. Please contact the Rehab Department at [phone] with questions. Total Timed Treatment Codes: 9 Min Total Treatment Time: 25 Min Patient Complexity Level High - An occupational therapy evaluation of high complexity was completed using the above tests and measures. The following information was obtained: An occupational profile and medical and therapy history, including review of medical and/or therapy records and extensive additional review of physical, cognitive, or psychosocial history related to current functional performance, Various standardized and non-standardized assessments were used to identify at least 5 or more performance deficits related to physical, cognitive, or psychosocial skills that result in activity limitations and/or participation restrictions, and Clinical decision-making is of high analytic complexity, which includes an analysis of the patient profile, analysis of data from comprehensive assessment(s), and consideration of multiple treatment options. Patient present with comorbidities that affect occupational performance. Significant modification of tasks or assistance (e.g., physical or verbal) with assessment(s) is necessary to enable patient to complete evaluation component. Dhaval Smith OT [facility] 2024-02-26 10:31:00 Associated Order(s): CONSULT ADULT PHYSICAL THERAPY Patient agreeable to working with physical therapy. Patient met supine. Recommend nursing staff utilize RW to safely assist patient with mobility out of the bed or chair. PHYSICAL THERAPY EVALUATION Consult received, chart reviewed and evaluation complete this date. Patient is referred to PT for evaluation and treatment. Patient is a 63 year old male who presents to hospital for Altered mental status, unspecified altered mental status type [R41.82] . Discharge Recommendations: Therapy Needs and Potential: Patient would benefit from continued physical therapy services to address: decline in bed mobility decline in transfers decline in gait and/or balance decreased strength decreased motor planning Patient demonstrates good potential to improve and meet therapy goals with further physical therapy services. Patient appears motivated to improve their functional mobility and return to their previous level of function. Patient demonstrates ability to tolerate atleast 30-60 minutes of physical therapy with active participation. Challenges to Home Transition: increased risk of falls decreased caregiver availability decreased safety awareness environmental barriers Equipment recommendations: rolling walker Current Functional Status and/or Treatment: AM-PAC 6 Clicks (Raw Score 0=Dependent, 24=Independent; Low function Raw Score 0= Dependent, 32=Independent): Raw Score - Basic Mobility : 20 T-Scale Score - Basic Mobility : 43.99 Bed Mobility: Rolling: Independent Scooting in supine: Independent Supine-sit: Independent Sit to supine: Independent Sitting balance Good Supine to sit: Independent Scooting to edge of bed: Independent Repositioned patient to head of bed: Independent Assessed body mechanics, safety and execution of tasks . Pt able to perform tasks with single step commands but requires increased time to process, initiate and complete tasks. Pt presents with deficits in coordination and vision as seen in pt does not track but able to see objects in front of him and peripherally while sitting EOB Educated pt on safety and requesting for assistance as needed to prevent falls Dizziness No Transfers: sit-stand: Supervision Stand pivot transfer: Supervision Lateral scooting transfer: Independent Static/dynamic standing balance: Fair Assessed standing balance and posture pt demonstrated WBOS. Implemented use of RW for stability during transfers and improve MYLA to normal base. Pt required mod cues and [place] assist for proper hand placements on walker. Pt slow to process instructions and perform tasks properly Dizziness No Pt instructed to use his other senses aside from vision to help him know if chair/bed is behind him. Pt required max cues to increase awareness Ambulation: Assisted patient with ambulation as follows: 20 feet using no device. and Minimal Assistance. Patient presenting with waddling gait pattern. Instructed patient in directional changes and head movements in all planes during gait trial resulting in minimal instability and no LOB. Assessed standing posture, balance and gait mechanics Implemented use of RW and instructed pt to ambulate around room. Pt required mod A in management of walker due to pt bumping into objects and poor handling possibly due to cognitive or sequencing deficits. Pt able to have better gait pattern as seen in pt picking up his feet and taking longer steps with Narrower MYLA. Dizziness No Educated family in room that at this time we are unable to leave a walker In the room for patient for safety concerns due to pt presenting with visual deficits and poor sequencing. Therapeutic exercise: patient educated in Adaptive equipment , Compensatory techniques/adaptive strategies, Energy conservation, Fall prevention, General strengthening, Joint protection, Positioning, Relaxation/breathing techniques, and Safety awareness., instructed patient in the following: ankle pumps, heel slides, hip abduction/adduction, straight leg raises, long arc quads, seated marching, patient/caregiver instructed to perform HEP 2-3 times per day, 10-15 repetitions., and patient/caregiver verbalizes understanding of instructions. Functional Outcome Measures: (Values within the past 12 hours) Tinetti Gait Score- # / 12 Initiation of gait: No hesitancy Step length: Neither foot passes the other Foot clearance: Both feet completely clear floor Step Symmetry: Step lengths equal Step continuity: Stopping/dis-continuous steps Path: Mild/moderate deviation or uses AD Trunk: No sway, but flex of knees/ back or spreads arms Walking: Heels apart Tinetti Gait Score: 6 Tinetti Gait Score Interpretation: < 7 - Increased risk for falls TINETTI BALANCE SCORE- # / 16 Sitting balance: Steady, safe Arises: Able, uses arms to help Attempts to Rise: Able to rise, 1 attempt Immediate standing balance (first 5 sec): Steady without walker or other support Standing Balance: Steady but MYLA > 4 inches or uses AD/other support Nudged 3 times *: Staggers, grabs, catches self Eyes closed*: Steady Turning 360 degrees: Either discontinuous or unsteady Sitting down: Uses arms or motion not smooth Tinetti Balance Score: 11 Tinetti Balance Interpretation: >= 9 - Low risk for falls After session, patient semi reclined in bed. Call button provided. Medical team informed of findings on visual , coordination and sequencing deficits PLAN OF CARE: While in the hospital, PT will follow patient at least 3 times per week,once or twice a day, per patient's tolerance and needs. See below for complete details. Admit Date: 02/25/2024 Hospital Diagnosis:Altered mental status, unspecified altered mental status type [R41.82] PT Diagnosis: Difficulty walking, Weakness, and Abnormality of gait and balance Weight Bearing Precaution: NA General Precautions: PPE used:Gloves, General, Fall, Logroll,IV x1 Bracing/Cast present or required:N/A PMH: History reviewed. No pertinent past medical history. PSH: Past Surgical History: Procedure Laterality Date COLONOSCOPY Lower 02/11/2024 Surgeon: Jonnathan Florez MD; Location: ENDOSCOPY () OR LOCATION ESOPHAGOGASTRODUODENOSCOPY Upper 02/11/2024 Surgeon: Jonnathan Florez MD; Location: ENDOSCOPY ([facility]) OR LOCATION RADIUS AND ULNA ORIF Right 02/25/2016 Surgeon: Ericka Bergman; Location: [facility] SPLINT APPLICATION Right 02/25/2016 Surgeon: Ericka Bergman; Location: [facility] ULNA ORIF Right 10/10/2016 Surgeon: Cuba Salgado MD; Location: [facility] Location ULNAR NON-UNION TAKEDOWN Right 10/10/2016 Surgeon: Cuba Salgado MD; Location: [facility] Prior Living Situation: lives with their spouse and in an elevated house, Stairs with bilateral hand rails , DME: No device Prior level of Mobility: community ambulation, house hold ambulation Suspected ischemic or hemorraghic stroke:No Subjective: pt reports he is feeling better Patient/Family Goals: to get better Patient/Family verbalizes understanding of condition: Yes PAIN: denies pain before and after session COMMUNICATION Primary Language: Bhutanese Able to Verbalize needs: Yes Vision:glasses Hearing:good; no issues reported ORIENTATION/COGNITION: Oriented to: person, place, and situation Awake: Yes Alert: Yes Dizzy: No Follows Commands: Yes 1-Step Yes Multi-Step No Inconsistent: Yes NEUROLOGICAL Light Touch: within functional limits bilateral LE, Heel to oneill: nt Tone: wnl BALANCE: Sitting: Static: Good Dynamic: Good Standing: Static: Fair Dynamic: Fair RANGE OF MOTION: within functional limits bilateral LE, STRENGTH: 5/5 (Normal), bilateral LE ENDURANCE: Good, Room air SKIN INTEGRITY: intact, PROBLEM LIST: Decline in gait, Decline in transfers, Difficulty with stairs, Decreased strength, Decreased balance, Safety awareness deficits, Pain, Decreased Coordination, and Decreased Motor Planning ASSESSMENT: Patient is a 63 year old male seen secondary to the above listed diagnosis. Patient would benefit from continued PT to address the above listed deficits to maximize independence and safety with functional mobility.pt presents with visual depth perception, sequencing, and processing deficits. Pt demonstrated WBOS with gait but became WNL once provided with RW. Pt demonstrated poor AD management and bumps into objects thus unsafe to leave a walker with him and will require further training for safety and fall prevention. Incorporated Rehabilitation Potential: good Goals: The following goals are to maximize independence and safety with functional mobility to eventually return to prior living situation and prior functional status. Upon discharge, patient and/or family will demonstrate the followin. Supine-sit: Independent 2. Sit to stand: Independent using no device., rolling Walker. Stand to sit: Independent using no device., rolling Walker. Stand pivot transfer: Independent 3. Independent with ambulation, Feet: 300 using least assistive device. 4. Independent up/down 1 flight of stairs using bilateral hand rails. Treatment Plan: Gait training, Gait training on stairs, Therapeutic exercise, Transfer training, Balance training, Bed mobility training, Equipment needs assessment, Safety education, patient/caregiver education, Pain management, Neuromuscular Re-Education, and Functional Motor Training PATIENT EDUCATION: Patient and Significant other provided with preferred teaching of verbal information and demonstration on role of PT, plan of care, HEP. Safety awareness and fall prevention, energy conservation techniques, proper body mechanics, AD management . Shows readiness to learn. Verbal instruction and Demonstration teaching provided. Individual is able to read and verbalizes understanding of teaching provided and Indicates understanding of teaching provided. Total Time Tx Codes in Minutes: 25 min Total Treatment Time in Minutes: 35 min Desmond Alarcon PT, DPT License # [id number] [facility] 2024-02-09 11:51:21 Associated Order(s): CONSULT NEUROLOGY STROKE SERVICE CONSULT DATE OF SERVICE: 02/09/2024 11:51 REASON FOR CONSULT: Hx recent right MCA stroke (12/16/23) with severe right ICA stenosis from ulcerated plaque, recently DC from Neuro service, presenting with UGIB, need in put regarding the lowest amount of DAPT he can be placed on given his complicated neuro hx in the setting of GI bleed. HISTORY OF PRESENT ILLNESS Keyla Little is a 63 year old male left handed with the following stroke factors: PMHX of tobacco use history, HLD, DM-II, in addition to chronic alcohol use who presented with CC of 3-4 episodes of hematemesis which started last night when he woke up in middle of night feeling sick. Neurology was consulted to comment on DAPT given his new GI bleed. Patient currently denies any new neuro deficits and has been compliant with his medications at home. Last dose of Brilinta 02/08/2024 evening, and ASA 325 mg 02/08/24 morning. Antiplatelets: Yes Brilinta 90 mg bid, ASA 325 mg Anticoagulations: No Tobacco abuse: Yes quit 2 months ago, smoked 2.5 pack/day for 35-40 years, now smokes 1 cig/week Alcohol abuse: Yes 6 pack beer everyday for 30 years Drug abuse: No Previous stroke: Yes R MCA 12/16/2023 Body mass index is 27.35 kg/m?. STROKE DOCUMENTATION Stroke Activation - Date: (not recorded) Stroke Activation - Time: (not recorded) Physician arrival at bedside - Date: (not recorded) Physician arrival at bedside - Time: (not recorded) CT-Head without contrast read by Neurology: (not recorded) Last seen normal: Last known well - Date: (not recorded) Last known well - Time: (not recorded) Wake up stroke: No NIH STROKE SCALE NIHSS TOTAL: (not recorded) NIHSS Interval: (not recorded) LOC: (not recorded) LOC QUESTIONS: (not recorded) LOC COMMANDS: (not recorded) BEST GAZE: (not recorded) VISUAL: (not recorded) FACIAL PALSY: (not recorded) MOTOR ARM-LEFT: (not recorded) MOTOR ARM-RIGHT: (not recorded) MOTOR LEG-LEFT: (not recorded) MOTOR LEG-RIGHT: (not recorded) LIMB ATAXIA: (not recorded) SENSORY: (not recorded) BEST LANGUAGE: (not recorded) DYSARTHRIA: (not recorded) EXTINCTION AND INATTENTION (FORMERLY NEGLECT): (not recorded) Dysphagia Screen: IV Alteplase: If IV Thrombolytic therapy was indicated and given as a standard of care was the patient/family informed of benefits of treatment and risk such as hemorrhage and/or angioedema?: (not recorded) Was there a delay in door to IV thrombolytic over 30 minutes?: (not recorded) Reason (s): (not recorded) ICH/SAH Endovascular Intervention: PRE- ADMISSION MODIFIED SIRI SCORE 1 - No significant disability despite symptoms; able to carry out all usual duties and activities PAST MEDICAL HISTORY History reviewed. No pertinent past medical history. PAST SURGICAL HISTORY Past Surgical History: Procedure Laterality Date RADIUS AND ULNA ORIF Right 02/25/2016 Surgeon: Ericka Bergman; Location: [facility] [place] SPLINT APPLICATION Right 02/25/2016 Surgeon: Ericka Bergman; Location: [facility] [place] ULNA ORIF Right 10/10/2016 Surgeon: Cuba Salgado MD; [facility] [place] ULNAR NON-UNION TAKEDOWN Right 10/10/2016 Surgeon: Cuba Salgado MD; Location: [facility] [place] FAMILY HISTORY No family history on file. SOCIAL HISTORY Social History Socioeconomic History Marital status: Single Tobacco Use Smoking status: Former Smokeless tobacco: Never Substance and Sexual Activity Alcohol use: Yes Social Determinants of Health Financial Resource Strain: Low Risk (02/02/2024) Overall Financial Resource Strain (CARDIA) Difficulty of Paying Living Expenses: Not hard at all Food Insecurity: No Food Insecurity (02/02/2024) Hunger Vital Sign Worried About Running Out of Food in the Last Year: Never true Ran Out of Food in the Last Year: Never true Transportation Needs: No Transportation Needs (02/02/2024) PRAPARE - Transportation Lack of Transportation (Medical): No Lack of Transportation (Non-Medical): No Physical Activity: Inactive (02/02/2024) Exercise Vital Sign Days of Exercise per Week: 0 days Minutes of Exercise per Session: 0 min Social Connections: Unknown (02/02/2024) Social Connection and Isolation Panel [NHANES] Frequency of Communication with Friends and Family: More than three times a week Marital Status: Living with partner Housing Stability: Low Risk (02/02/2024) Housing Stability Vital Sign Unable to Pay for Housing in the Last Year: No Number of Places Lived in the Last Year: 1 Unstable Housing in the Last Year: No Reviewed patient's family, surgical and social hx. HOME MEDICATIONS (Not in a hospital admission) HOSPITAL MEDICATIONS Current Facility-Administered Medications Medication Dose Route Frequency Last Rate Last Admin dextrose 50 % in water (D50W) injection 25 mL 25 mL Slow IV Push PRN foLIC acid (FOLATE) 5 mg in NaCl 0.9% (NS) piggyback 5 mg IV Piggyback DAILY Stopped at 02/09/24 0921 glucagon (GLUCAGEN DIAGNOSTIC KIT) injection 1 mg 1 mg Intramuscular PRN NaCl 0.9% (NS) bolus infusion 1,000 mL 1,000 mL IV Infusion ONCE NaCl 0.9% (NS) bolus infusion 1,000 mL 1,000 mL IV Infusion ONCE octreotide (SANDOSTATIN) 500 mcg in NaCl 0.9% (NS) 100 mL infusion 50 mcg/hr IV Infusion CONTINUOUS 10 mL/hr at 02/09/24 0747 50 mcg/hr at 02/09/24 0747 ondansetron (ZOFRAN (PF)) injection 4 mg 4 mg Slow IV Push Q6HPRN 4 mg at 02/09/24 0751 pantoprazole (PROTONIX) 80 mg in NaCl 0.9%(NS) 500 mL IV infusion (CNR) 8 mg/hr IV Infusion CONTINUOUS 50 mL/hr at 02/09/24 0249 8 mg/hr at 02/09/24 0249 Sliding Scale Insulin - Lispro (HumaLOG) Subcutaneous TID MEALS+HS 1 Units at 02/09/24 1139 Current Outpatient Medications Medication Sig Dispense Refill aspirin 325 mg tablet Take 1 tablet by mouth in the morning for 180 days. 90 tablet 1 ticagrelor (BRILINTA) 90 mg tablet Take 1 tablet by mouth in the morning and 1 tablet in the evening. Do all this for 90 days. 60 tablet 2 nicotine 14 mg/24 hr patch Apply 1 Patch to area(s) every 24 (twenty-four) hours. 28 Each 1 atorvastatin (LIPITOR) 40 mg tablet Take 1 tablet by mouth at bedtime. metFORMIN 500 mg/5 mL SSRR Take 500 mg by mouth in the morning. ALLERGY No Known Allergies REVIEW OF SYSTEMS General: (-) fever, (-) chills, (-) weight change, (-) dizziness, (-) fatigue, (-) change in appetite Skin: (-) rash, (-) lesion HEENT: (-) headache, (-) change in hearing, (-) change in vision, (-) nasal discharge, (-) sore throat Neck: (-) pain, (-) difficulty swallowing, (-) mass Heme: (-) bleeding disorder Resp: (-) cough, (-) shortness of breath, (-) dyspnea on exertion Cardio: (-) chest pain, (-) palpitations, (-) syncope GI: (-) abdominal pain, (-) nausea, (-) vomiting, (-) diarrhea, (-) constipation, (-) melena, (-) hematochezia, (-) hematemesis : (-) dysuria, (-) hematuria, (-) increased frequency, (-) difficulty urinating, (-) difficulty initiating Endo: (-) heat intolerance, (-) diabetes, (-) cold intolerance, (-) polyuria, (-) polydipsia, (-) renal insufficiency, (-) thyroid disease Neuro: (-) numbness, (-) tingling, (-) weakness Back: (-) pain, (-) spasms MALVIN: (-) muscle pain, (-) joint pain, (-) claudication Psych: (-) anxiety, (-) depression, (-) psychiatric disorder PHYSICAL EXAM Vitals: 02/09/24 0900 02/09/24 0918 02/09/24 1000 02/09/24 1100 BP: 132/66 133/66 138/73 Pulse: 79 75 74 Resp: 17 Temp: 36.8 ?C (98.3 ?F) TempSrc: Oral SpO2: 99% 99% 99% Weight: Height: General: Alert and oriented x 4 (time, person, place and situation); no apparent distress. Mental Status: Consciousness, attention, concentration: normal, Stays focused and on task while being questioned. Speech/ Language: intact to comprehension, fluency, repetition and naming. Fund of knowledge: is congruent with level of education. Remote and recent memory: normal, can recall recent and distant memories Cranial Nerves: I. Not tested. II. PERRL. FOV full to confrontation. III. IV., . Extraocular movements intact without nystagmus. V. Normal sensation in V1-3 distributions. VII. No facial droop noted. VIII. Hearing intact. IX., X. Palatal elevation and gag response present symmetrically. XI. Normal Strength of sternocleidomastoid and trapezius muscles bilaterally. XII. Tongue in midline. Motor: Tone: normal Bulk: normal STRENGTH Right Left Deltoid 5 4+ Biceps 5 4+ Triceps 5 4+ Wrist extensors 5 4+ Interossei 5 4+ Hip flexors 5 4+ Knee flexors (hamstring) 5 5 Knee extensors (quadriceps) 5 5 Ankle dorsiflexors 5 5 Ankle plantar flexors 5 5 DTR's: Right Left Biceps 2+ 2+ Triceps 2+ 2+ Brachioradialis 2+ 2+ Patella 2+ 2+ Achilles 1+ 1+ Pathologic reflexes and signs: Hollingsworth: absent Babinski: absent Cerebellar: Nystagmus: neg, FTN: nl, HTS:nl, Tremors: neg, Dysdiadochokinesia: neg Sensory: LT: subjective decreased LT on R UE Gait: deferred HEENT: pupils equal, round, reactive to light; extraocular movements intact; oropharynx clear; moist mucous membranes Lungs: clear to auscultation bilaterally Cardio: S1, S2 normal Extremities:no cyanosis,clubbing or edema Neck:supple,no carotid bruit,no JVD Abdomen: soft; non-tender; non-distended; normoactive bowel sounds heard LABS Recent Results (from the past 24 hour(s)) CBC WITH DIFF Collection Time: 02/09/24 1:37 AM Result Value Ref Range WBC 11.69 (H) 4.20 - 10.70 10*3/?L RBC 3.38 (L) 4.26 - 5.52 10*6/?L HGB 9.3 (L) 12.2 - 16.4 g/dL HCT 28.9 (L) 38.4 - 49.3 % MCV 85.5 81.7 - 95.6 fL MCH 27.5 26.1 - 32.7 pg MCHC 32.2 31.2 - 35.0 g/dL RDW-SD 41.9 38.5 - 51.6 fL RDW-CV 13.5 12.1 - 15.4 % PLT 218 150 - 328 10*3/?L MPV 11.7 9.8 - 13.0 fL NRBC/100 WBC 0.0 0.0 - 10.0 /100 WBCs NRBC x10 3 <0.01 10*3/?L GRAN MAT (NEUT) % 45.1 % IMM GRAN % 0.40 % LYMPH % 41.9 % MONO % 9.2 % EOS % 2.7 % BASO % 0.7 % GRAN MAT x10 3 (ANC) 5.28 1.99 - 6.95 10*3/uL IMM GRAN x10 3 0.05 0.00 - 0.06 10*3/uL LYMPH x10 3 4.90 (H) 1.09 - 3.23 10*3/uL MONO x10 3 1.07 (H) 0.36 - 1.02 10*3/uL EOS x10 3 0.31 0.06 - 0.53 10*3/uL BASO x10 3 0.08 0.01 - 0.09 10*3/uL REACT LYMPHS Rare PROTHROMBIN TIME / INR Collection Time: 02/09/24 1:37 AM Result Value Ref Range PROTIME PATIENT 11.7 10.1 - 12.6 Seconds INR 1.0 ACTIVATED PARTIAL THRMPLAS KIMI Collection Time: 02/09/24 1:37 AM Result Value Ref Range APTT Patient 21 (L) 26 - 36 Seconds Type and Screen - ONCE Routine Collection Time: 02/09/24 1:37 AM Result Value Ref Range ABO & RH A NEGATIVE IAT Negative COMP. METABOLIC PANEL (75919) Collection Time: 02/09/24 1:37 AM Result Value Ref Range NA 139 135 - 145 mmol/L K 3.7 3.5 - 5.0 mmol/L CL 107 98 - 108 mmol/L CO2 TOTAL 27 23 - 31 mmol/L AGAP 5 2 - 16 BUN 15 7 - 23 mg/dL GLUCOSE 269 (H) 70 - 110 mg/dL CREATININE 1.07 0.60 - 1.25 mg/dL TOTAL BILI 0.5 0.1 - 1.1 mg/dL CALCIUM 8.8 8.6 - 10.6 mg/dL T PROTEIN 6.9 6.3 - 8.2 g/dL ALBUMIN 3.5 3.5 - 5.0 g/dL ALK PHOS 42 34 - 122 U/L ALTv 24 5 - 50 U/L AST(SGOT) 28 13 - 40 U/L eGFR 79.0 mL/min/1.73m2 ETHANOL Collection Time: 02/09/24 1:37 AM Result Value Ref Range ALCOHOL <10 mg/dL POCT GLUCOSE(AGE >30DAYS) Collection Time: 02/09/24 1:46 AM Result Value Ref Range POCT Glu (age>30days) 216 (A) 70 - 110 mg/dL POCT GLUCOSE (AUTOMATED) Collection Time: 02/09/24 1:46 AM Result Value Ref Range POCT GLU 216 (H) 70 - 110 mg/dL Prepare Packed RBC (in units) Collection Time: 02/09/24 2:52 AM Result Value Ref Range Unit Blood Type O Pos ISBT Blood Type Code 5100 Unit Number [id number] Blood Expiration Date & Time [id number] Status Information Issued Product Identification Red Blood Cells Product Code [id number] LIPASE Collection Time: 02/09/24 3:39 AM Result Value Ref Range LIPASE 489 (H) 0 - 220 U/L Hepatic Function Panel (ALB, T.PRO, BILI T, BU/BC, ALT, AST, ALK, PHOS) Collection Time: 02/09/24 3:39 AM Result Value Ref Range TOTAL BILI 0.5 0.1 - 1.1 mg/dL BILI UNCON 0.0 (L) 0.1 - 1.1 mg/dL BILI CONJ 0.0 0.0 - 0.3 mg/dL T PROTEIN 5.7 (L) 6.3 - 8.2 g/dL ALBUMIN 2.7 (L) 3.5 - 5.0 g/dL ALK PHOS 42 34 - 122 U/L ALTv 20 5 - 50 U/L AST(SGOT) 25 13 - 40 U/L Magnesium Serum Collection Time: 02/09/24 3:39 AM Result Value Ref Range MAGNESIUM 1.8 1.7 - 2.4 mg/dL Iron Panel Collection Time: 02/09/24 3:39 AM Result Value Ref Range IRON 77 50 - 160 ug/dL TIBC 324 250 - 410 ug/dL % FE SAT 24 20 - 50 % Ferritin Serum Collection Time: 02/09/24 3:39 AM Result Value Ref Range FERRITIN 9.4 (L) 18.0 - 464.0 ng/mL Cbc without Diff Collection Time: 02/09/24 4:14 AM Result Value Ref Range WBC 8.22 4.20 - 10.70 10*3/?L RBC 3.18 (L) 4.26 - 5.52 10*6/?L HGB 8.7 (L) 12.2 - 16.4 g/dL HCT 27.2 (L) 38.4 - 49.3 % MCH 27.4 26.1 - 32.7 pg MCV 85.5 81.7 - 95.6 fL MCHC 32.0 31.2 - 35.0 g/dL PLT 100 (L) 150 - 328 10*3/?L MPV 12.6 9.8 - 13.0 fL RDW-CV 13.5 12.1 - 15.4 % RDW-SD 41.9 38.5 - 51.6 fL NRBC x10 3 <0.01 10*3/?L NRBC/100 WBC 0.0 0.0 - 10.0 /100 WBCs IPF % Cbc without Diff Collection Time: 02/09/24 5:32 AM Result Value Ref Range WBC 6.61 4.20 - 10.70 10*3/?L RBC 3.08 (L) 4.26 - 5.52 10*6/?L HGB 8.5 (L) 12.2 - 16.4 g/dL HCT 27.1 (L) 38.4 - 49.3 % MCH 27.6 26.1 - 32.7 pg MCV 88.0 81.7 - 95.6 fL MCHC 31.4 31.2 - 35.0 g/dL PLT 101 (L) 150 - 328 10*3/?L MPV 12.3 9.8 - 13.0 fL RDW-CV 13.7 12.1 - 15.4 % RDW-SD 43.5 38.5 - 51.6 fL NRBC x10 3 <0.01 10*3/?L NRBC/100 WBC 0.0 0.0 - 10.0 /100 WBCs IPF % MRSA / MSSA Screen by PCR, Nares Collection Time: 02/09/24 6:43 AM Specimen: NARES, BOTH SIDES; Swab Result Value Ref Range MRSA Screen by PCR, Nares Negative Negative MSSA Screen by PCR, Nares Negative Negative MRSA/MSSA Positive? No No aPTT Collection Time: 02/09/24 6:43 AM Result Value Ref Range APTT Patient 30 26 - 36 Seconds Prothrombin Time / INR Collection Time: 02/09/24 6:43 AM Result Value Ref Range PROTIME PATIENT 13.0 (H) 10.1 - 12.6 Seconds INR 1.2 Fibrinogen Collection Time: 02/09/24 6:43 AM Result Value Ref Range Fibrinogen 157 (L) 167 - 453 mg/dL POCT GLUCOSE (AUTOMATED) Collection Time: 02/09/24 11:34 AM Result Value Ref Range POCT GLU 200 (H) 70 - 110 mg/dL STROKE LABS HGB A1C (%) Date Value 12/16/2023 6.4 (H) LDL CHOL (mg/dL) Date Value 12/17/2023 46 CHOL (mg/dL) Date Value 12/17/2023 114 (L) TSH (mIU/L) Date Value 12/18/2023 1.92 Recent Labs 12/16/23 1324 01/31/24 [address] ANGIOGRAM ABDOMEN/PELVIS Result Date: 02/09/2024 1. No intraluminal extravasation of contrast to indicate a source of acute gastrointestinal bleeding. 2. Cirrhotic liver morphology with evidence of portal hypertension noted in the form of severe splenomegaly, multiple varices including esophageal gastric varices and hemorrhoids and mild generalized mesenteric edema. 3. Peripancreatic edema is seen which may be a sequela of portal hypertension or represent acute interstitial pancreatitis. Clinical correlation with physical examination and laboratory evaluation is suggested. Preliminary Report Dictated by Resident: Daniella Mathis. I, Peggy Chapman MD., have reviewed this study and agree with the above report. ASSESSMENT AND PLAN Keyla Little is a 63 year old male with PMHx of the following stroke risk factors: PMHX of tobacco use history, HLD, DM-II, in addition to chronic alcohol use who presented with CC of 3-4 episodes of hematemesis. Not a stroke activation. Stroke was consulted for commenting on DAPT given new GI bleed. No new neurological deficits. GI planning endoscopy procedure to find source of bleed. Will discuss about scheduling angioplasty after his GI issue is address. Hx of R MCA stroke on DAPT New GI bleed - Stop Brilinta - continue with Aspirin 81 daily and Lipitor 40mg daily - Keep permissible, MAP>65 and SBP goal 120-160 mm Hg during EGD and colonoscopy - Frequent Neurochecks Stroke will sign off. Please call back in case of questions. Discussed with Dr. Haines, Neurology Faculty Stroke pager: [phone] Juan Ahmadi MD PGY 2 Department of Neurology Vascular neurology attending attestation note I personally examined the patient on 02/09/24 and agree with the documentation resident note, including any changes or additions that the resident may have made to the medical student's note, with the following highlights, additions and addendums. Josh Haines MD [facility] - [employer] 2024-02-09 07:13:28 Associated Order(s): CONSULT GASTROENTEROLOGY [facility] Gastroenterology & Hepatology Consult Note Requesting Physician: Asher Aguilera MD Service: MPU- Pulmonary Medicine Reason for Consultation: Upper GI bleed, vomiting blood, no hx of esophageal varices, hypotensive on arrival Date of Service: 02/09/2024 History of Present Illness: Keyla Little is a 63 year old male with PMHx of tobacco use disorder, HLD, DM2, recent MCA stroke (12/16/23) on ASA and brilinta who presented on 02/09/2024 with complaints of hematemesis. Started last night around midnight, went in to use restroom, burped up some blood and then vomited 2-3 times of bright red blood, in total about a quart of blood. No prior GI bleeding. Stools are brown, no melena or hematochezia. No abdominal pain. Got dizziness associated with vomiting. Takes vitamin B12. On ASA 325 mg and brilinta 90 mg BID since discharge 02/02. Last dose brilinta 02/07 PM and ASA 02/07 AM. No prior EGD, but had colonoscopy for CCS which was normal within in the last few years. Quit alcohol 1.5 months ago, previously drank 6 pack per day 20+ years. Used to smoke 2.5 PPD, quit 3 months ago. No drug use. No Fhx of liver disease, GI cancers. Recently admitted (01/30 - 02/02) with left sided weakness after prior admission for stroke in 12/2022. At recent admission, his plavix was switched to brilinta (due to being non-therapeutic) and his ASA was increased to 325 mg daily for 2 weeks until repeat DSA was done for possible right ICA angioplasty. His eliquis was also stopped at that time. In the ED, patient afebrile, HR 70s, BP initially 50s-70s/40s however this improved with 1L IVF and is now 120s/60s. Labs notable for hgb 8.7 (down from 10.3 one week ago), INR 1.2, BUN 15, cr 1.07, Bili/LFTs normal, albumin 2.7, lipase 489. CTA A/P with no active extravasation, cirrhotic liver morphology with evidence of portal HTN, peripancreatic edema. Past Medical History: History reviewed. No pertinent past medical history. Past Surgical History: Past Surgical History: Procedure Laterality Date RADIUS AND ULNA ORIF Right 02/25/2016 Surgeon: Ericka Bergman; Location: [facility] [place] SPLINT APPLICATION Right 02/25/2016 Surgeon: Ericka Bergman; Location: [facility] [place] ULNA ORIF Right 10/10/2016 Surgeon: Cuba Salgado MD; Location: [facility] ULNAR NON-UNION TAKEDOWN Right 10/10/2016 Surgeon: Cuba Salgado MD; Location: [facility] Family History: No family history on file. Allergies: No Known Allergies Medications: Reviewed Social History: Social History Socioeconomic History Marital status: Single Spouse name: Not on file Number of children: Not on file Years of education: Not on file Highest education level: Not on file Occupational History Not on file Tobacco Use Smoking status: Former Smokeless tobacco: Never Substance and Sexual Activity Alcohol use: Yes Drug use: Not on file Sexual activity: Not on file Other Topics Concern Not on file Social History Narrative Not on file Social Determinants of Health Financial Resource Strain: Low Risk (02/02/2024) Overall Financial Resource Strain (CARDIA) Difficulty of Paying Living Expenses: Not hard at all Food Insecurity: No Food Insecurity (02/02/2024) Hunger Vital Sign Worried About Running Out of Food in the Last Year: Never true Ran Out of Food in the Last Year: Never true Transportation Needs: No Transportation Needs (02/02/2024) PRAPARE - Transportation Lack of Transportation (Medical): No Lack of Transportation (Non-Medical): No Physical Activity: Inactive (02/02/2024) Exercise Vital Sign Days of Exercise per Week: 0 days Minutes of Exercise per Session: 0 min Stress: Not on file Social Connections: Unknown (02/02/2024) Social Connection and Isolation Panel [NHANES] Frequency of Communication with Friends and Family: More than three times a week Frequency of Social Gatherings with Friends and Family: Not on file Attends Zoroastrian Services: Not on file Active Member of Clubs or Organizations: Not on file Attends Club or Organization Meetings: Not on file Marital Status: Living with partner Intimate Partner Violence: Not on file Housing Stability: Low Risk (02/02/2024) Housing Stability Vital Sign Unable to Pay for Housing in the Last Year: No Number of Places Lived in the Last Year: 1 Unstable Housing in the Last Year: No Objective: Physical Exam: BP 119/71 | Pulse 79 | Temp 36.2 ?C (97.2 ?F) (Oral) | Resp 17 | Ht 1.727 m (5' 8") | Wt 81.6 kg (179 lb 14.3 oz) | SpO2 100% | BMI 27.35 kg/m? General: In NAD, well appearing HEENT: No scleral icterus. No conjunctival pallor. CV: warm, well perfused, no LE swelling Resp: No increased WOB, breathing comfortably on RA Abd: soft, non-tender, non-distended. No masses. No rebound tenderness or guarding. Neuro: answering questions appropriately. No asterixis. Skin: No rashes Labs: Recent Labs 02/03/24 0753 02/09/24 0137 02/09/24 0414 HGB 10.3* 9.3* 8.7* MCV 84.7 85.5 85.5 WBC 3.95* 11.69* 8.22 PLT 125* 218 100* Recent Labs 12/17/23 0409 02/09/24 0137 02/09/24 0339 ALB 3.6 3.5 2.7* TPRO 6.8 6.9 5.7* BILIT 0.9 0.5 0.5 ALT 23 24 20 AST 36 28 25 ALKPHOS 48 42 42 Recent Labs 01/31/24 1546 02/02/24 0538 02/09/24 0137 NA 136 137 139 K 3.9 4.4 3.7 CL 106 106 107 TCO2 26 27 27 BUN 13 18 15 CREAT 0.91 0.95 1.07 GLU 161* 226* 269* CA 8.8 8.5* 8.8 Recent Labs 02/09/24 0643 PTINR 1.2 Imaging: CTA A/P 02/07 1. No intraluminal extravasation of contrast to indicate a source of acute gastrointestinal bleeding. 2. Cirrhotic liver morphology with evidence of portal hypertension noted in the form of severe splenomegaly, mild generalized mesenteric edema. 3. Peripancreatic edema is seen which may be a sequela of portal hypertension or represent acute interstitial pancreatitis. Clinical correlation with physical examination and laboratory evaluation is suggested. Prior Endoscopy: EGD: none Colonoscopy: reports normal colonoscopy within the last 2 years. Done at [facility]. Impression/Recommendations: Keyla Little is a 63 year old male with PMHx as listed above who is currently admitted for hematemesis for which GI is consulted. # Upper GI Bleed # Hematemesis Patient presenting with 2-3 episodes of hematemesis since midnight. No prior GI bleeding. Denies history of cirrhosis however had evidence of cirrhosis with sequelae of portal HTN on CTA, no active extravasation. On ASA 325 and brilinta for recent stroke/ICA stenosis (last dose 02/07). Patient initially hypotensive in ED, now s/p 1L IVF with improvement/stability in hemodynamics. Hgb was 8.7 on presentation (down from 10.3 one week ago), plt 100, INR 1.2, normal BUN. DDx includes varices, PUD, esophagitis, gastritis, PHG, angioectasias, Dieulafoy's lesion, and Stacey Brown tear. Given his antiplatelet use, endoscopic interventions are somewhat limited. There is tentative plan for outpatient endovascular therapy, possible stenting for his ICA stenosis, after which he will be committed to DAPT. Also, he is at higher risk for dann-procedural and sedation related complications given his recent CVA and severe ICA stenosis and therefore would like to minimize procedural sedation if possible. This was discussed with neurology team, and they recommended both EGD and colonoscopy to rule out sources of bleeding prior to stent placement. Since he is currently stable, we will plan for EGD and colonoscopy on (to minimize multiple sessions of anesthesia), once he is not therapeutic on his brilinta. If he re-bleeds in the meantime, we are available for EGD. - Clear liquid diet tomorrow - Tentative plan for EGD and colonoscopy on . - Can consider EGD earlier pending his clinical course - Obtain colonoscopy records from [facility]. If recent colonoscopy was normal and was done recently, then will not need to repeat colonoscopy this admission. - Okay with ASA 81 mg daily for now. Continue to hold brilinta. - Consult neurology for assistance with DAPT in setting of GI bleed, risk stratification prior to endoscopy, appreciate recs. - Follow up PRU and ARU - Discussed with IR, who will be available if need for TIPS arises - Maintain 2 large bore PIVs (i.e. 18G or larger) or cordis - IVF boluses prn to maintain hemodynamics, normalize HR/MAPs - Maintain active T&S. Trend H/H q6h or as clinical picture necessitates. Transfuse pRBC for goal Hgb 7. Avoid over-transfusing as this can lead to increased portal pressures and increased risk of rebleeding. - IV pantoprazole 80mg x1, then IV 40 mg BID or continuous infusion - Octreotide 50 mcg bolus, then 50 mcg/hr x 2-5 days - Prophylactic antibiotics (ceftriaxone or cipro) x 5d - If develops massive hematemesis, consider intubation for airway protection - Please notify GI team with any changes in clinical status #Compensated Cirrhosis MELD: 10, Child's B7. Complicated by evidence of portal HTN (splenomegaly and mesenteric edema), thrombocytopenia. No prior evidence of decompensations (Ascites, HE, VH) at this time. Etiology: Presumed EtOH. Will need CLD workup which can be completed as outpatient. Ascites/edema: Not appreciated on exam . Imaging shows no ascites. Hepatic encephalopathy: Grade 0 currently. HCC surveillance: No masses on CTA 01/2024 Esophageal varices: No prior EGD SBP: No prior episodes. Liver synthetic function: Plt count 100. Albumin 2.7. INR 1.2. Hepatitis Status/Immunizations: vaccinate for HBV and HAV if not immune. Transplant Candidacy: Low MELD Patient presenting with hematemesis, no prior diagnosis of cirrhosis however has cirrhotic liver morphology on CT as well as portal HTN sequelae such as splenomegaly and mesenteric edema, also with thrombocytopenia, hypoalbuminemia, mildly elevated INR. No evidence of ascites, HE. Hematemesis could be due to variceal bleed. - Full infectious workup (BCX, UA/UCX, CXR). No ascites to tap. - Check HCV ab, HBsAb, HBsAg, HAV Ab - Low sodium diet - Strict I/O's and daily weights - Daily INR, CBC, CMP # Acute Pancreatitis Patient with heavy alcohol use history. CT with no gallstones or biliary ductal dilation. Lipase elevated and CT evidence of AP however he is not having abdominal pain. No other risk factors identified. Likely etiology is due to alcohol. - Continue maintenance IVF with LR - Pain control per primary although not currently having pain - NPO for now - Zofran PRN nausea/vomiting - Check lipid panel - Encourage alcohol cessation Patient was seen and discussed with Dr. Florez. GI will continue to follow. Please call with any questions. Jason Nguyen MD Gastroenterology and Hepatology PGY-4 Associated attestation - Jonnathan Florez MD - 02/10/2024 8:47 AM CDT I personally interviewed/examined the patient on 02/09/[address] Nguyen's resident/fellow note as written . I actively participated in the decision-making process. Please see the resident's note for additional details. [facility] 2024-02-02 12:07:02 Associated Order(s): CONSULT PHYSICAL TESTING SUPERVISOR-ADULT Care Management Social Functional Assessment Patient Name: Keyla Little Age: [age] year old Sex: male Patient's Previous Admission Date at [facility]: 12/16/2023 CM spoke with patient/family to complete SFA. Role of Care Management explained. Initial CM screening and initial discharge plan established. CM anticipates patient to discharge to prior living situation and to be provided information on after care, medication management, and follow-ups prior to discharge. No discharge barriers identified. Current diagnosis and co-morbidities: Cerebrovascular accident (CVA), unspecified mechanism [I63.9] Readmission Questions: Was patient discharged from any acute care hospital within the last 30 days: No Alcohol Use Screening (AUDIT-C) Q1: How often do you have a drink containing alcohol?: Never SCORE: 1 Social Functional Assessment: Mental Status: Alert & Oriented to Person,Place & Time Patient's support system and child day care teacher: Other Name and phone number of primary caregiver/support system: Shayna Buenrostro (significant other) [phone], Eliza Purvis (sister) [phone] Living Arrangement: Home Address of living arrangement : [address] [place] [id number] In the last 12 months, was there a time when you were not able to pay the mortgage or rent on time?: No In the last 12 months, how many places have you lived?: 1 In the last 12 months, was there a time when you did not have a steady place to sleep or slept in a chcf (including now)?: No Persons living in home: Self;Other Names & numbers of persons living in home: Shayna Kelton (significant other) [phone] Are you , , , , never , or living with a partner?: Living with partner In a typical week, how many times do you talk on the phone with family, friends, or neighbors?: More than three times a week Baseline functional assessment-ADLS: Independent Current functional status same as prior: Yes On average, how many days per week do you engage in moderate to strenuous exercise (like a brisk walk)?: 0 days On average, how many minutes do you engage in exercise at this level?: 0 min Do you have a PCP?: Yes Name of PCP: Shaheen FERGUSON Home Health Care Agency: No Provider Services: No DME Company: No Equipment: None Hemodialysis: No Community resources utilized: [facility] Funding Resources: Commercial Prescription coverage plan: Commercial How hard is it for you to pay for the very basics like food, housing, medical care, and heating?: Not hard at all Within the past 12 months, you worried that your food would run out before you got the money to buy more.: Never true Within the past 12 months, the food you bought just didn't last and you didn't have money to get more.: Never true Anticipated services prior to disharge: Consult;Continue Medical Eval;Lab Values;PT/OT/ST;MRI/CT/US;LORE/T TE;Reassess prior to discharge Expected mode of discharge transportation: Personal vehicle;Family Name and phone number of the friend or family member picking up the patient: Shayna Buenrostro (significant other) [phone] In the past 12 months, has lack of transportation kept you from medical appointments or from getting medications?: No In the past 12 months, has lack of transportation kept you from meetings, work, or from getting things needed for daily living?: No Additional info required for discharge planning: Pending medical evaluation;Pending P/T O/T recommendation Recommended discharge plan: Home SFA Complete: Social Functional Assessment complete: Yes Role of Care Management explained. NUPUR Verde, ACM-RN Supervisor Pipelines [facility]-Care Management [email or web address] Office: [phone] [facility] 2024-02-02 10:29:00 Associated Order(s): CONSULT SPEECH Speech-Language Pathology 02/02/2024 1029 Pt was referred to FILTERATION OPERATOR service as a stroke activation. Pt passed dysphagia screen and no si/sx of dysphagia reported by pt or nursing. No dysarthria, aphasia or cognitive-communication deficits reported or observed by FILTERATION OPERATOR. Patient reports that he was able to do some of his work today. No further speech pathology services indicated at this time, so service is signing off. Please re-consult if further services are indicated. Thank you. No charge for this visit due to: evaluation deferred/no current needs. Kirstie Andujar M.S., [facility]-FILTERATION OPERATOR Speech-Language Pathologist Office: [phone] Pager: [phone] Kirstie Andujar [facility] 2024-02-02 09:12:00 Associated Order(s): CONSULT ADULT OCCUPATIONAL THERAPY OT GENERAL EVALUATION Consult received via [employer], EMR reviewed and evaluation completed 02/02/24. Patient referred to occupational therapy for evaluation and treatment per stroke protocol. Patient agreeable to participate in occupational therapy. Pt seen in conjunction with Nataly Coleman PT due to pt's anticipated limited activity tolerance. Refer to PT for further mobility details. OT billing for OT potion only. Discharge Recommendations: Therapy Needs and Potential:Not applicable as no further skilled acute care OT needs at this time. Challenges to Home Transition:- Increased risk of falls - Environmental barriers- 16 steps to enter home Equipment Recommendations: possibly Shower chair if pt continues to experience symptoms of dizziness post discharge PLAN OF CARE: Discharge from OT services Precautions: Weight bearing status: NA General: Fall and telemetry Bracing: N/A Current Occupational Performance and/or Treatment: AM-PAC 6 Clicks (Raw Score 0=Dependent, 24=Independent; Low function Raw Score 0= Dependent, 32=Independent): Raw Score - Daily Activity: 24 T-Scale Score - Daily Activity: 57.54 Grooming: Independent, washes/dries hands while standing at sink LB Dressing: Independent, dons shoes in standing by sliding foot into slip on shoes with back; dons B socks while sitting on bench in room using figure 4 method Tub/Shower Transfer: NT, pt demonstrates good standing tolerance and balance however educated on shower chair as pt reports experiencing intermittent dizziness in standing at times Toilet Transfer: Independent, simulates with multiple sit<>stand from bedside chair with no assistive device Toileting Hygiene: Independent, pt received using restroom with door closed upon therapist entry into room Functional Mobility: Multiple sit<>stands with independence and no assistive device Ambulates around room, mccall, and on stairs to simulate home functional mobility Pt tolerates activity well and reports minimal exertion Patient/caregiver educated on: Adaptive equipment (shower chair) , Fall prevention, Role of OT, and Safety awareness (avoiding ambulation if dizziness present and reporting symptoms to PCP; pacing self with strenuous activity and avoiding over-exertion) Patient left sitting upright in bedside chair with call bae in reach. Please, see full evaluation below for more detail. OT EVALUATION: 63 year old male Admit date: 01/31/2024 Date of onset: 01/31/24 Admit Diagnosis: Cerebrovascular accident (CVA), unspecified mechanism [I63.9] OT Diagnosis: Impaired IADL independence PMH: No past medical history on file. PSH: Past Surgical History: Procedure Laterality Date RADIUS AND ULNA ORIF Right 02/25/2016 Surgeon: Ericka Bergman; Location[facility] [place] SPLINT APPLICATION Right 02/25/2016 Surgeon: Ericka Bergman; Location[facility] [place] ULNA ORIF Right 10/10/2016 Surgeon: Cuba Salgado MD; Location: [facility] ULNAR NON-UNION TAKEDOWN Right 10/10/2016 Surgeon: Cuba Salgado MD; Location: [facility] PAIN: Denies pain before and after session. OCCUPATIONAL ROLES/HOME ENVIRONMENT: Home environment: Lives with girlfriend in elevated home (16 steps to enter). 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 Function prior to admission: Household ambulation, Community ambulation, Independent with BADLs, and Independent with IADLs Suspected ischemic or hemorraghic stroke patient: Yes, Pre-Stroke Modified Siri Score: 0 - No symptoms Equipment prior to admission: None PERFORMANCE SKILLS/FACTORS: UE Muscle Tone: bilateral WNL UE ROM: bilateral AROM WFL except R wrist slightly limited by prior fracture/hardware placement (preexisting) UE Strength: VALENTIN UE 5/5 Hand dominance: left Dexterity/Coordination: bilateral Intact Endurance - Sitting: Good Standing: Good Sitting Balance - Static: Good Dynamic: Good Standing: Balance - Static Good Dynamic: Good Dizziness: No Skin Integrity: No breakdown noted Sensation: Patient denies numbness and tinging. Oral Motor: WFL Communication: Able to verbalize needs Yes Other: N/A Vision: WFL Yes Other: glasses or contacts when driving Hearing: good; no issues reported COGNITION: Orientation: person, place, date/time, and situation Follows Commands: 1-step Yes Multi-step Yes Inconsistencies No Safety Awareness/Judgment: Good PROBLEM LIST: Decreased independence with IADL REHAB POTENTIAL/PROGNOSIS: good PATIENT/FAMILY GOALS: to go home TREATMENT/INTERVENTION PLAN: Discharge from OT PATIENT-FAMILY TEACHING Patient provided with preferred teaching of verbal information on Adaptive equipment (shower chair) , Fall prevention, Role of OT, and Safety awareness (avoiding ambulation if dizziness present and reporting symptoms to PCP; pacing self with strenuous activity and avoiding over-exertion). Shows readiness to learn. Verbal instruction teaching provided. Individual verbalizes understanding of teaching provided. Brooke Graham OTR, OTD Total Timed Treatment Codes: 4 Min Total Treatment Time: 18 Min Patient Complexity Level Low - An occupational therapy evaluation of low complexity was completed using the above tests and measures. The following information was obtained: An occupational profile and medical and therapy history, including a brief history with review of medical and/or therapy records related to the presenting problem. Various standardized and non-standardized assessments were used to identify at least 1-3 performance deficits related to physical, cognitive, or psychosocial skills that result in activity limitations and/or participation restrictions. Clinical decision making of low complexity may have been utilized, which includes an analysis of the occupational profile, analysis of data from problem-focused assessment(s), and consideration of a limited number of treatment options. Patient may presents with no comorbidities that affect occupational performance. Modification of tasks or assistance (e.g., physical or verbal) with assessment(s) may not have been necessary to enable completion of evaluation component. Brooke Graham OT [facility] 2024-02-02 09:12:00 Associated Order(s): CONSULT ADULT PHYSICAL THERAPY Patient agreeable to working with physical therapy. Patient met up in chair. Recommend nursing staff utilize no device to safely assist patient with mobility out of the bed or chair. PHYSICAL THERAPY EVALUATION Consult received, chart reviewed and evaluation complete this date. Patient is referred to PT for evaluation and treatment. Patient is a 63 year old male who presents to hospital for Cerebrovascular accident (CVA), unspecified mechanism [I63.9] PMHX of HTN, HLD, DM-II, who presented on 01/31/24 with recurrent L weakness and numbness after a recent right MCA stroke (12/16/23) with severe right ICA stenosis from ulcerated plaque. He was LSN at 2 AM (>24 hour prior to presentation) . NIHSS 7. S/P cerebral angiogram 02/01/24 due to severe right ICA stenosis. Consult received, chart reviewed and evaluation completed this date 02/02/24 in conjunction with Salma ROYAL/Radha for safety given patient's decreased activity tolerance. Billing for PT portion only Discharge Recommendations: Therapy Needs and Potential: Patient without any skilled PT needs at this time. Challenges to Home Transition: environmental barriers Equipment recommendations: no device Current Functional Status and/or Treatment: AM-PAC 6 Clicks (Raw Score 0=Dependent, 24=Independent; Low function Raw Score 0= Dependent, 32=Independent): Raw Score - Basic Mobility : 24 T-Scale Score - Basic Mobility : 57.68 Bed Mobility: Deferred due to patient is independent and up walking in his room Transfers: sit-stand: Independent Static/dynamic standing balance: Good Provided education assistance for proper hand and feet placement, proper trunk, and pelvic movement for safety and stability during sit to stand. Dizziness No Ambulation: Assisted patient with ambulation as follows: 300 feet using no device. and Independent. Patient presenting with Step-through gait pattern. Instructed patient in directional changes and head movements in all planes during gait trial resulting in no instability and no LOB. Stairs: assisted patient with gait up and down 14 steps using no rails with Independent. Patient has good step length and teo. Educated patient on proper breathing techniques during ambulation. Educated patient on Dahlia exertion scale for progressive ambulation. Patient verbalized understanding of safe techniques for progressive ambulation and safe progression of activities. Dizziness No Therapeutic exercise: patient educated in Deep breathing, Energy conservation, Fall prevention, General strengthening, Positioning, Relaxation/breathing techniques, and Safety awareness. and patient/caregiver verbalizes understanding of instructions. Patient educated on functional mobility and the importance/benefits of active and safe performance to help prevent BLE DVT's, PNA, overall decrease in mobility, strength, and endurance. Functional Outcome Measures: (Values within the past 12 hours) PT Functional Outcomes Dahlia Modified RPE Scale: 2 ft. Timed Up & Go (TUG) seconds: 10 Seconds TUG Interpretation: <= 14 Low risk for falls 5 X [id number] Test: 20 Tinetti Gait Score- # / 12 Initiation of gait: No hesitancy Step length: On both sides, swing foot passes stance foot Foot clearance: Both feet completely clear floor Step Symmetry: Step lengths equal Step continuity: Steps appear continuous Path: Straight without AD Trunk: No sway, no flexion, no use of arms, no use of AD Walking: Heels apart Tinetti Gait Score: 11 Tinetti Gait Score Interpretation: >= 7 - Low risk for falls After session, patient up in chair. Call button provided. Nurse notified. PLAN OF CARE: PT signs off. See below for complete details. Admit Date: 01/31/2024 Hospital Diagnosis:Cerebrovascular accident (CVA), unspecified mechanism [I63.9] PMHX of HTN, HLD, DM-II, who presented on 01/31/24 with recurrent L weakness and numbness after a recent right MCA stroke (12/16/23) with severe right ICA stenosis from ulcerated plaque. He was LSN at 2 AM (>24 hour prior to presentation) . NIHSS 7. S/P cerebral angiogram 02/01/24 due to severe right ICA stenosis. PT Diagnosis: decreased endurance Weight Bearing Precaution: NA General Precautions: PPE used:Gloves, General, Fall, telemonitor Bracing/Cast present or required:N/A PMH: No past medical history on file. PSH: Past Surgical History: Procedure Laterality Date RADIUS AND ULNA ORIF Right 02/25/2016 Surgeon: Ericka Bergman; Location[facility] [place] SPLINT APPLICATION Right 02/25/2016 Surgeon: Ericka Bergman; [facility] ULNA ORIF Right 10/10/2016 Surgeon: Cuba Salgado MD; [facility] ULNAR NON-UNION TAKEDOWN Right 10/10/2016 Surgeon: Cuba Salgado MD; Location: [facility] Prior Living Situation: lives with their spouse and in an elevated house, Stairs with bilateral hand rails Able to negotiate: Yes DME: No device Prior level of Mobility: community ambulation, house hold ambulation Suspected ischemic or hemorraghic stroke:Yes, Pre-Stroke Modified [place] Score: 1 - No significant disability, despite symptoms; able to perform all usual duties and activities Subjective: "I feel much better" Patient/Family Goals: To go home Patient/Family verbalizes understanding of condition: Yes PAIN: denies pain before and after session COMMUNICATION Primary Language: Bhutanese Able to Verbalize needs: Yes Vision:good; no issues reported Hearing:good; no issues reported ORIENTATION/COGNITION: Oriented to: person, place, date/time, and situation Awake: Yes Alert: Yes Dizzy: No Follows Commands: Yes 1-Step Yes Multi-Step Yes Inconsistent: No NEUROLOGICAL Light Touch: within functional limits bilateral LE Tone: intact BALANCE: Sitting: Static: Good Dynamic: Good Standing: Static: Good Dynamic: Good RANGE OF MOTION: within functional limits bilateral LE STRENGTH: 5/5 (Normal), bilateral LE ENDURANCE: Fair+, Room air SKIN INTEGRITY: please see nursing note PROBLEM LIST: Decreased endurance ASSESSMENT: Patient is a 63 year old male seen secondary to the above listed diagnosis. No further inpatient PT needs identified at this time. Rehabilitation Potential: NA as no further therapy needs Goals: The following goals are to maximize independence and safety with functional mobility to eventually return to prior living situation and prior functional status. Defer as no PT needs. Treatment Plan: Evaluation only, Discharge from PT , and Safety education, patient/caregiver education PATIENT EDUCATION: Patient provided with preferred teaching of verbal information on role of PT, plan of care, HEP. Shows readiness to learn. Verbal instruction teaching provided. Individual verbalizes understanding of teaching provided. Total Time Tx Codes in Minutes: 16 min Total Treatment Time in Minutes: 18 min Jo Coleman, PT, DPT, CSRS [facility] A physical therapy evaluation of low complexity was completed based on meeting at least one of the criteria below: A history with no personal factors (includes environmental factors) and/or no comorbities that impact plan of care An examination of body system(s) using standardized tests and measures addressing at least 1-2 elements from any of the following: body structures and functions, activity limitations, and/or participation restrictions A clinical presentation with stable and/or uncomplicated characteristics Jo Coleman PT [facility] 2023-12-17 14:03:50 Associated Order(s): CONSULT SPEECH Speech-Language Pathology Clinical Swallow Evaluation 12/17/2023 Keyla Little : 1960 Age/Sex: 63 year old male Time IN/OUT: 0519-2200 Referring Physician: Mich Huizar Date of Referral: 12/16/23 Reason for Referral: stroke activation (dysphagia, speech-language/cognitive-lingu istic) Date of Admission/Onset: 12/16/23 SUBJECTIVE: Patient awake/alert, agreeable to evaluation. Patient reported slurred speech at the time of admission though this has resolved. OBJECTIVE: is being seen for a clinical swallow evaluation. Per hospital course, "Keyla Little is a 63 year old male left-handed male with a PMH of HTN, HLD, DMT2 (A1C 6.4) who presented by EMS on 12/16/2023 as a stroke activation for acute left face/arm/leg weakness. LSN at 11 am on 12/16/2023. He initially had NIHSS of 9 with severe left face and arm > leg weakness and sensory loss and left harjinder-neglect. This rapidly improved to NIHSS of 0 by the time the CT scans were obtained. CT Head showed right parietal hypodensity. CTA Head and Neck showed right ICA near occlusion with soft plaque and right inferior M2 occlusion. MRI Brain wo Contrast showed acute/subacute right MCA territory infarct. TTE showed small potential PFO, but negative for thrombus. Patient loaded with Aspirin and Plavix and admitted to NCCU for further observation and workup. To be transitioned from DAPT to heparin gtt due to soft clot burden." See chart for further details. Pertinent Imaging: XR CHEST 1 VW Result Date: 12/17/2023 Findings compatible with mild aspiration changes in the left lung base. MR STROKE BRAIN WO CONTRAST Result Date: 12/16/2023 Acute/subacute infarct in the right MCA territory. CT ACUTE STROKE ANGIOGRAM HEAD Result Date: 12/16/2023 1. 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 Opacification of the cavernous carotid artery distal to the thrombus but remains a small in caliber. 2. Filling defect likely thrombus at the proximal inferior division of right M2 MCA with distal reconstitution. 3. Moderate stenosis of right supraclinoid internal carotid artery. Finding #1 was communicated to and acknowledged by Dr. Milan Krishna, via phone call at 2:04 PM on 12/16/2023. Finding #2 was communicated to and acknowledged by Dr. Milan Krishna, via phone call at 2:39 PM on 12/16/2023. Preliminary Report Dictated by Resident: Renzo Knapp MD., have reviewed this study and agree with the above report. CT ACUTE STROKE ANGIOGRAM NECK Result Date: 12/16/2023 1. 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 Opacification of the cavernous carotid artery distal to the thrombus but remains a small in caliber. 2. Filling defect likely thrombus at the proximal inferior division of right M2 MCA with distal reconstitution. 3. Moderate stenosis of right supraclinoid internal carotid artery. Finding #1 was communicated to and acknowledged by Dr. Milan Krishna, via phone call at 2:04 PM on 12/16/2023. Finding #2 was communicated to and acknowledged by Dr. Milan Krishna, via phone call at 2:39 PM on 12/16/2023. Preliminary Report Dictated by Resident: Renzo Knapp MD., have reviewed this study and agree with the above report. CT STROKE PERFUSION W CONTRAST Result Date: 12/16/2023 Right MCA territory acute/subacute stroke with a core infarct of 8 ml and an ischemic penumbra of 50 ml. Preliminary Report Dictated by Resident: Mauricio Rojas I, Chantale Machuca MD., have reviewed this study and agree with the above report. CT ACUTE STROKE HEAD WO CONTRAST Result Date: 12/16/2023 1. Subtle medium-size age-indeterminant hypodensity seen at the right insular cortex/ernandez radiata/centrum semiovale, concerning for an acute/subacute infarction. No acute hemorrhage seen. No significant mass effect seen. The primary team was reported of the critical findings at the time of report dictation. Preliminary Report Dictated by Resident: Chantale Knapp MD., have reviewed this study and agree with the above report. Previous FILTERATION OPERATOR Services/Swallow History: None documented. No past medical history on file. Past Surgical History: Procedure Laterality Date RADIUS AND ULNA ORIF Right 02/25/2016 Surgeon: Ericka Bergman; Location: [facility] [place] SPLINT APPLICATION Right 02/25/2016 Surgeon: Ericka Bergman; [facility] ULNA ORIF Right 10/10/2016 Surgeon: Cuba Salgado MD; Location[facility] [place] ULNAR NON-UNION TAKEDOWN Right 10/10/2016 Surgeon: Cuba Salgado MD; Location: [facility] General Behavior: Alert, Calm, and Cooperative Hearing: WFL for speech Respiratory Status: room air Orientation/Cognition: - Patient oriented to: person, place, time, and situation - Response type: verbal - Follows 1-step commands: Yes Current Diet Texture/Means of Nutrition: regular (IDDSI level 7)-textured diet with thin liquids (IDDSI level 0) Oral Motor Exam Dentition and Oral Cavity: edentulous, dentures or partials, and moist oral mucosa Face within normal limits and symmetrical Jaw within normal limits and symmetrical Lips within normal limits and symmetrical Tongue within normal limits and midline on protrusion Palate within normal limits and symmetrical Vocal Quality clear Speech clear/intelligible CLINICAL SWALLOW EVALUATION Swallows on command: Yes Handles Secretions: Yes Volitional Cough: Did not test Spontaneous Cough: No PO trials were administered by patient. Patient was provided with multiple bites/sips of thin liquid (0), pudding (4), and regular solid (7) consistencies with the following observations: Oral Stage Anterior leakage of bolus not observed Pocketing of bolus not observed Subjectively prolonged oral phase not observed Oral residue not observed Mastication WFL considering state of dentition Pharyngeal Stage Subjectively reduced laryngeal elevation not observed Coughing or throat clearing not observed Change in voice quality not observed Multiple swallows subjectively not observed Respiratory sufficiency and coordination WFL - no increased work of breathing and/or oxygen sats and respiratory rate remained stable Report of globus sensation does not report 3 oz water challenge passed Patient/Family/Staff education: Provided verbally. Discussed findings of evaluation, recommendations and FILTERATION OPERATOR plan of care. Patient/family verbalized understanding and is in agreement with plan of care. Patient/Family goal: did not state ASSESSMENT/IMPRESSIONS: Keyla Little presents with: Diagnosis: suspected normal oropharyngeal swallow Etiology of suspected dysphagia/Risk factors for dysphagia: acute/subacute stroke Observations/Complaints: no overt s/sx of aspiration, functional oral stage, and no deficits observed Factors raising concern for aspiration or pharyngeal dysphagia: acute stroke Suspected risk for aspiration: low Factors increasing risk for aspiration-related respiratory complication such as pneumonia: none evident Risk for malnutrition/dehydration or not meeting nutritional needs: no Additional comments: NA *Note: aspiration cannot be ruled out nor confirmed without instrumental assessment/imaging. Prognosis: good for safe po intake due to above findings. RECOMMENDATIONS/GOALS: Diet: Recommend patient continue a regular (IDDSI level 7)-textured diet with thin liquids (IDDSI level 0) Precautions: NA Instrumental Swallow Assessment: - Not indicated at this time. Additional Referrals: - None evident at this time. Continued FILTERATION OPERATOR services: No further acute FILTERATION OPERATOR services indicated at this time, so service is signing off. Please re-consult if indicated. Thank you. Discharge Recommendations: - Return to prior living situation. Marcela Gunter MA, [facility]-FILTERATION OPERATOR Speech-Language Pathologist Office [phone] Pager: [phone] [facility] 2023-12-17 10:57:25 Associated Order(s): CONSULT PHYSICAL TESTING SUPERVISOR-ADULT CARE MANAGEMENT NOTE Reason for Consult - Please give recommendations and opinions on family primary decision maker and appropriate options for discharge destination. Care Management Social Functional Assessment Patient Name: Keyla Little Age: [age] year old Sex: male Patient's Previous Admission Date at [facility]: 12/04/2021 Current diagnosis and co-morbidities: Cerebrovascular accident (CVA), unspecified mechanism [I63.9] Embolic stroke involving left middle cerebral artery [I63.412] CM spoke with patient/family to complete SFA. Role of Care Management explained. Initial CM screening and initial discharge plan established. CM anticipates patient to discharge to prior living situation and to be provided information on after care, medication management, and follow-ups prior to discharge. No discharge barriers identified. Readmission Questions: Was patient discharged from any acute care hospital within the last 30 days: No Alcohol Use Screening (AUDIT-C) Q1: How often do you have a drink containing alcohol?: 2-4 times a month SCORE: 3 Q2: How many drinks containing alcohol do you have on a typical day when you are drinking?: 1 or 2 Q3: How often do you have six or more drinks on one occasion?: Never Total Score (AUDIT-C): 2 Did patient elect to have resources provided: No Actions taken: Provided support Social Functional Assessment: Mental Status: Alert & Oriented to Person,Place & Time Information given by: Self Patient's support system and child day care teacher: Self;Other Name and phone number of primary caregiver/support system: Shayna Buenrostro, significant other, ; Eliza Purvis, sister, MPOA: No Living Arrangement: Home: single story (elevated on stilts, 15 steps) [address] of living arrangement : [address] [address]/ physical address [address] [address] In the last 12 months, was there a time when you were not able to pay the mortgage or rent on time?: No In the last 12 months, how many places have you lived?: 1 In the last 12 months, was there a time when you did not have a steady place to sleep or slept in a chcf (including now)?: No Persons living in home: Self;Other Names & numbers of persons living in home: Shayna Buenrostro, significant other, Are you , , , , never , or living with a partner?: Living with partner In a typical week, how many times do you talk on the phone with family, friends, or neighbors?: Once a week Baseline functional assessment-ADLS: Independent Current functional status same as prior: Yes On average, how many days per week do you engage in moderate to strenuous exercise (like a brisk walk)?: 0 days (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) On average, how many minutes do you engage in exercise at this level?: 0 min Do you have a PCP?: Yes Name of PCP: [facility] Agency: No Provider Services: No DME Company: No Equipment: Other Other equipment: glucometer Hemodialysis: No Community resources utilized: None Funding Resources: Commercial Prescription coverage plan: Commercial How hard is it for you to pay for the very basics like food, housing, medical care, and heating?: Not hard at all Within the past 12 months, you worried that your food would run out before you got the money to buy more.: Never true Within the past 12 months, the food you bought just didn't last and you didn't have money to get more.: Never true Anticipated services prior to disharge: Continue Medical Eval;Reassess prior to discharge;Lab Values;PT/OT/ST Expected mode of discharge transportation: Same as support system In the past 12 months, has lack of transportation kept you from medical appointments or from getting medications?: No In the past 12 months, has lack of transportation kept you from meetings, work, or from getting things needed for daily living?: No Additional info required for discharge planning: Pending medical evaluation;Pending P/T O/T recommendation Recommended discharge plan: Home SFA Complete: Social Functional Assessment complete: Yes Role of Care Management explained. Jennifer Steward, RN Supervisor [employer] [phone] fax [email or web address] 2023-12-17 10:05:00 Associated Order(s): CONSULT ADULT OCCUPATIONAL THERAPY 12/17/2023 1005 OCCUPATIONAL THERAPY NOTE: Consult received and chart reviewed. Patient screened for OT needs. Patient sitting up in bedside chair upon arrival and reports resolution of previous symptoms. Patient states going to bathroom and feeding without issue. 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 Patient educated about BEFAST stroke signs and symptoms. No skilled acute care OT needs at this time. OT signs off. V. Te, OTR, OTD, C/NDT [facility] 2023-12-17 09:25:00 Associated Order(s): CONSULT ADULT PHYSICAL THERAPY Patient agreeable to working with physical therapy. Patient met semi reclined in bed. Recommend nursing staff utilize supervision to safely assist patient with mobility out of the bed or chair. PHYSICAL THERAPY EVALUATION Consult received, chart reviewed and evaluation complete this date. Patient is referred to PT for evaluation and treatment. Patient is a 63 year old male who presents to hospital for Cerebrovascular accident (CVA), unspecified mechanism [I63.9] Embolic stroke involving left middle cerebral artery [I63.412] PMHX of HTN, HLD, DM-II, who was brought by EMS on 12/16/23 as stroke activation for acute dense left face/arm/leg weakness (LSN 11 AM 12/16/23). His symptoms resolved but he is admitted to the ICU given CTA showed right ICA near occlusion with soft plaque. On arrival, he was able to provide history to staff standing on right but not left side. His reports he might have had a stroke in Oct 2023. He had sudden severely slurred speech (and no other neurologic deficits) and went to an ER. His symptoms improved within 30-60 minutes and no scans were done. Denied having any residual symptoms.. Discharge Recommendations: Therapy Needs and Potential: Patient would benefit from continued physical therapy services to address: decline in gait and/or balance decreased strength decreased endurance Patient demonstrates good potential to improve and meet therapy goals with further physical therapy services. Patient appears motivated to improve their functional mobility and return to their previous level of function. Challenges to Home Transition: decreased safety awareness Equipment recommendations: no device Current Functional Status and/or Treatment: AM-PAC 6 Clicks (Raw Score 0=Dependent, 24=Independent; Low function Raw Score 0= Dependent, 32=Independent): Raw Score - Basic Mobility : 22 T-Scale Score - Basic Mobility : 47.4 Bed Mobility: Rolling: Independent Supine<>sit: Independent Sitting balance: Good Transfers: sit-stand: Independent Stand pivot transfer: Supervision Static/dynamic standing balance: Good see Tinetti and 4 stage below Cued for proximal activation, attention to task / safety with task, attention to left Analyzed higher level balance and readiness for return to high level PLOF Dizziness No Ambulation: Assisted patient with ambulation as follows: 300 feet using no device. and Supervision. Patient presenting with 2 point and Swing-Through gait pattern. Instructed patient in directional changes and head movements in all planes during gait trial resulting in minimal instability and no LOB. Pt demos difficulty with narrow MYLA, quick turns, has instability but able to recover with stepping strategy Cued for attention to L side, with IV pole pt demos poor attention/avoidance of line requiring assist Dizziness No Therapeutic exercise: Educated patient with importance and benefits of progressive OOB activities as tolerated to: Increase overall mobility, strength and endurance and progress towards PLOF Decrease chances of pneumonia, deconditioning, BLE DVT's, skin breakdown and pressure sores. Patient verbalizing understanding to all discussed Functional Outcome Measures: (Values within the past 12 hours) Tinetti Gait Score- # / 12 Initiation of gait: No hesitancy Step length: On both sides, swing foot passes stance foot Foot clearance: Both feet completely clear floor Step Symmetry: Step lengths equal Step continuity: Steps appear continuous Path: Mild/moderate deviation or uses AD Trunk: No sway, no flexion, no use of arms, no use of AD Walking: Heels apart Tinetti Gait Score: 10 Tinetti Gait Score Interpretation: >= 7 - Low risk for falls TINETTI BALANCE SCORE- # / 16 Sitting balance: Steady, safe Arises: Able, uses arms to help Attempts to Rise: Able to rise, 1 attempt Immediate standing balance (first 5 sec): Steady without walker or other support Standing Balance: Narrow stance without support Nudged 3 times *: Steady Eyes closed*: Steady Turning 360 degrees: Continuous steps and steady Sitting down: Safe smooth Tinetti Balance Score: 15 Tinetti Balance Interpretation: >= 9 - Low risk for falls 4 - Stage Balance Test Stand with your feet [id number]: Yes Place the instep of one foot so it is touching the big toe of the other foot.: Yes Tandem stand: Place one foot in front of the other, heel touching toe.: No Stand on one foot.: No 4 - Stage Balance Test Interpretation: CANNOT hold the tandem stand for at least 10 seconds is at increased risk of falling After session, patient up in chair. Call button provided. RN notified of pt performance, tolerance of session, and PT recommendations for safe mobility. PLAN OF CARE: While in the hospital, PT will follow patient at least 2 times per week,once or twice a day, per patient's tolerance and needs. See below for complete details. Admit Date: 12/16/2023 Hospital Diagnosis:Cerebrovascular accident (CVA), unspecified mechanism [I63.9] Embolic stroke involving left middle cerebral artery [I63.412] PMHX of HTN, HLD, DM-II, who was brought by EMS on 12/16/23 as stroke activation for acute dense left face/arm/leg weakness (LSN 11 AM 12/16/23). His symptoms resolved but he is admitted to the ICU given CTA showed right ICA near occlusion with soft plaque. On arrival, he was able to provide history to staff standing on right but not left side. His reports he might have had a stroke in Oct 2023. He had sudden severely slurred speech (and no other neurologic deficits) and went to an ER. His symptoms improved within 30-60 minutes and no scans were done. Denied having any residual symptoms. PT Diagnosis: Abnormality of gait and balance and harjinder inattention Weight Bearing Precaution: NA General Precautions: PPE used:Gloves and Surgical mask, General, Fall, Lines/Tubes,IV R AC Bracing/Cast present or required:N/A PMH: No past medical history on file. 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 "I'm really trying to get myself better." Patient/Family Goals: Return to work Patient/Family verbalizes understanding of condition: Yes PAIN: denies pain before and after session COMMUNICATION Primary Language: Bhutanese Able to Verbalize needs: Yes Vision:good; no issues reported Hearing:good; no issues reported ORIENTATION/COGNITION: Oriented to: person, place, date/time, and situation Awake: Yes Alert: Yes Dizzy: No Follows Commands: Yes 1-Step Yes Multi-Step Yes Inconsistent: No NEUROLOGICAL Light Touch: within functional limits bilateral LE, reports some decreased sensation soles BLE Heel to oneill: WFL Tone: WFL BALANCE: Sitting: Static: Excellent Dynamic: Excellent Standing: Static: Good Dynamic: Good RANGE OF MOTION: within functional limits bilateral LE STRENGTH: 4/5 (Good), bilateral LE ENDURANCE: Good, Room air SKIN INTEGRITY: intact, defer to RN notes PROBLEM LIST: Decline in gait, Difficulty with stairs, Decreased strength, Decreased endurance, and Decreased balance ASSESSMENT: Patient is a 63 year old male seen secondary to the above listed diagnosis. Patient would benefit from continued PT to address the above listed deficits to maximize independence and safety with functional mobility. Pt will benefit from skilled PT in order to address community ambulation, stair training and higher level balance tasks to facilitate safety with return to PLOF. Rehabilitation Potential: good Goals: The following goals are to maximize independence and safety with functional mobility to eventually return to prior living situation and prior functional status. Upon discharge, patient and/or family will demonstrate the followin. sit-stand: Independent 2. Independent with ambulation, Feet: >500 using least assistive device. 3. Independent up/down 1 flight stairs using no rails. Treatment Plan: Gait training, Gait training on stairs, Therapeutic exercise, Balance training, Equipment needs assessment, Safety education, patient/caregiver education, Neuromuscular Re-Education, and Functional Motor Training PATIENT EDUCATION: Patient provided with preferred teaching of verbal information and demonstration on role of PT, plan of care, attention to tasks, and recommendations for safe mobility. Shows readiness to learn. Verbal instruction and Demonstration teaching provided. Individual is able to read and verbalizes understanding of teaching provided. Total Time Tx Codes in Minutes: 10 min Total Treatment Time in Minutes: 29 min Osmany Sorto, PT, DPT [facility] Department of Rehabilitation Services Patient will be followed by physical therapy, however, this therapist may not be the primary therapist. [place] [phone] for questions or concerns during week day coverage. 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 Patient is not able to provide information as he is altered. Called patient's home/mobile number, and all of the alternative contact numbers with no answer. Patient was not responding to questions. Unable to perform ROS due to altered mental status. In ED, patient vital signs stable besides blood pressure 164/76. Labs significant for unremarkable lactic acid, unremarkable troponin, unremarkable alcohol level, unremarkable urinalysi chondroplasty s. CBC showed WBC 3.66, Hgb 10.3, and plt 99. EKG unremarkable, x-ray unremarkable, preliminary report of CT head without was unremarkable. Was given lactulose enema x1. PAST MEDICAL HISTORY Past Medical History: Diagnosis Date CVA (cerebral vascular accident) Decompensated hepatic cirrhosis HLD (hyperlipidemia) HTN (hypertension) Pancytopenia T2DM (type 2 diabetes mellitus) Past Surgical History: Procedure Laterality Date COLONOSCOPY Lower 02/11/2024 Surgeon: Jonnathan Florez MD; Location: [facility] OR LOCATION ESOPHAGOGASTRODUODENOSCOPY Upper 02/11/2024 Surgeon: Jonnathan Florez MD; Location: [facility] OR LOCATION RADIUS AND ULNA ORIF Right 02/25/2016 Surgeon: Ericka Bergman; [facility] SPLINT APPLICATION Right 02/25/2016 Surgeon: Ericka Bergman; [facility] ULNA ORIF Right 10/10/2016 Surgeon: Cuba Salgado MD; Location[facility] ULNAR NON-UNION TAKEDOWN Right 10/10/2016 Surgeon: Cuba Salgado MD; Location: [facility] No family history on file. Alternative contact unreachable and patient is altered: information unable to obtain. ALLERGIES Allergies Allergen Reactions Liver Nausea and/or Vomiting MEDICATIONS No current facility-administered medications on file prior to encounter. Current Outpatient Medications on File Prior to Encounter Medication Sig Dispense Refill lactulose 10 gram/15 mL (15 mL) oral solution Take 45 mL by mouth in the morning and 45 mL at noon and 45 mL in the evening. 4050 mL 2 rifAXIMin 550 mg tablet Take 1 tablet by mouth in the morning and 1 tablet in the evening. 60 tablet 2 thiamine mononitrate, vit B1, 250 mg Tab Take 250 mg by mouth in the morning for 90 days. 30 tablet 2 aspirin 81 mg chewable tablet Take 1 tablet by mouth in the morning. 30 tablet 12 foLIC acid 1 mg tablet Take 1 tablet by mouth in the morning. 30 tablet 12 pantoprazole 40 mg EC tablet Take 1 tablet by mouth in the morning and 1 tablet in the evening. 30 tablet 12 nicotine 14 mg/24 hr patch Apply 1 Patch to area(s) every 24 (twenty-four) hours. 28 Each 1 atorvastatin (LIPITOR) 40 mg tablet Take 1 tablet by mouth at bedtime. metFORMIN 500 mg/5 mL SSRR Take 500 mg by mouth at bedtime. SOCIAL HISTORY Social History Socioeconomic History Marital status: Single Tobacco Use Smoking status: Former Smokeless tobacco: Never Substance and Sexual Activity Alcohol use: Yes Social Determinants of Health Financial Resource Strain: Low Risk (02/29/2024) Overall Financial Resource Strain (CARDIA) Difficulty of Paying Living Expenses: Not hard at all Food Insecurity: No Food Insecurity (02/29/2024) Hunger Vital Sign Worried About Running Out of Food in the Last Year: Never true Ran Out of Food in the Last Year: Never true Transportation Needs: No Transportation Needs (02/10/2024) PRAPARE - Transportation Lack of Transportation (Medical): No Lack of Transportation (Non-Medical): No Physical Activity: Inactive (02/29/2024) Exercise Vital Sign Days of Exercise per Week: 0 days Minutes of Exercise per Session: 0 min Social Connections: Unknown (02/29/2024) Social Connection and Isolation Panel [NHANES] Frequency of Communication with Friends and Family: More than three times a week Marital Status: Never Housing Stability: Low Risk (02/29/2024) Housing Stability Vital Sign Unable to Pay for Housing in the Last Year: No Number of Places Lived in the Last Year: 1 Unstable Housing in the Last Year: No Review of Systems: Per HPI PHYSICAL EXAMINATION Vitals: 03/21/24 1514 03/21/24 1700 03/21/24 1900 BP: (!) 164/76 130/72 (!) 151/77 Pulse: 82 75 85 Resp: 18 16 16 Temp: 36.6 ?C (97.9 ?F) TempSrc: Oral SpO2: 100% 100% 100% Weight: 95.3 kg (210 lb) Physical Exam General: A&Ox0 Cardiovascular: regular rate and rhythm, no murmurs Respiratory: CTAB Abdomen: abdomen soft, non-tender, non-distended, +BS MSK: Does not move LUE and LLE. Spontaneous movement of RUE and RLE. Neuro: Unable to perform asterixis or milk maid sign d/t AMS Extremities: No LE edema LABS - reviewed pertinent labs as below: (most recent, double check dates): Chemistry 03/21/2024 CBC 03/21/2024 LFTs 03/21/2024 Coags, Infl Mrks 143 113 (H) 15 178 (H) 3.66 (L) 10.3 (L) 99 (L) AST 85 (H) ALT 100 (H) INR 1.3 PTT 42 (H) 4.7 24 0.77 32.0 (L) AlkP 111 T Valentin 1.4 (H) LA 1.73 ESR - Ca 9.1 Mg 1.8 ANC 2.04 EOS 0.04 (L) Prot 7.4 Alb 3.6 PrCal - CRP - IMAGING - reviewed, pertinent results as below: CT Head wo 03/21/24 Preliminary report: FINDINGS: The ventricles and cerebral sulci are normal in caliber and configuration. No midline shift or pathological extra-axial fluid collection is present. The basal cisterns are unremarkable. No acute intracranial hemorrhage or significant mass effect is visualized. Small chronic right MCA territory infarct, unchanged from the prior examination. No evidence of skull fracture. IMPRESSION No acute intracranial findings. Chest x-ray 03/21/24 IMPRESSION No radiographic evidence for an acute process of the chest. 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 Patient was resumed on thrice daily oral lactulose and started on lactulose enemas as needed. Despite good BMs, patient remained altered, warranting a neurology consult for further input. Xifaxan was additionally added for augmentation HE therapy. Neurology recommended MRI brain, which, given AMS and restlessness, necessitated general anesthesia. However, risks and benefits of the imaging modality were weighed and, ultimately, the study was not performed. The patient nevertheless continued to exhibit incremental signs of improvement in mentation while on therapy, and is now hemodynamically stable for discharge. ASSESSMENT/PLAN Keyla Little is a 63 year old male with PMH as listed above, admitted to the hospital with: #TME 2/2 likely hepatic encephalopathy #Decompensated Cirrhosis 2/2 ETOH use Disorder (Portal HTN, esophageal/gastric varices s/p TIPS and embolization 02/14/24) #Pancytopenia Unknown if patient was compliant with his medication. Patient unable to provide information and alternate contacts and not reachable. Infection is unlikely as patient does not have fever or leukocytosis. Urinalysis was unremarkable. Has a history of pancytopenia likely from cirrhosis. Altered mental status likely from hepatic encephalopathy. Will restart home medications if patient is able to tolerate oral intake. Will start lactulose enema for goal bowel movements of 2-3. Will get an ultrasound just to evaluate the TIPS procedure patency. Patient is unlikely to have ascites on exam. TSH check in February with subclinical hyperthyroidism. -Labs: Iron panel, ferritin -f/u Ammonia -c/w lactulose 45 ml TID titrate if po intake tolerable -c/w rifaximin 550 mg BID -start lactulose enema q8h for goal 3-4 BM a day -c/w folic acid 1 mg daily -c/w thiamine 100 mg daily -c/w pantoprazole 40 mg BID -medication reconciliation and in AM Chronic issues: #Hx R MCA infarct (01/05) #severe right ICA stenosis #HTN | HLD #Hx of Tobacco use disorder #T2DM Stable, chronic. Pt has left sided deficits consistent with hx of stroke and chart review. -c/w aspirin 81 mg daily -c/w atrovastatin 40 mg qhs -c/w nicotine patch 14 mg/24 hr patch -hold home metformin -SSI/hypoglycemia protocol Pain Not an active problemTylenol Prophylaxis: DVT- enoxaparin Stress Ulcer: pantoprazole Code Status: not addressed: Presumed Full Code Daniel Calderón M.D. Dept of Internal Medicine PGY 3, [place] Team Notice: Parts of this note were created using Reel[employer] speech recognition dictation software. All attempts were made to correct any errors at the time of dictation. However, there may be some errors present in the community services coordinator that were inadvertently overlooked during the dictation. Associated attestation - Wali Carter MD - 03/22/2024 1:40 AM CDT I personally examined the patient on 03/22/[address] Calderón's resident note as written. I actively participated in the decision-making process. Please see the resident's note for additional details. 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 at bedside provided most of the history due to patient somnolence. Per , patient was in his usual state of health (albeit more sleepy since his TIPS procedure) roughly 2 days ago but began showing signs of confusion and altered mentation yesterday at 3PM when he insisted to his that he handed her 3 bottles of lactulose as opposed to just one. This morning his noted that their living room was "trashed," julio c litter strewn across the floor, household objects haphazardly rearranged (in the process of remodeling home), and animal companions left outdoors throughout the night. Patient was seen ambulating in the living room appearing confused. asked [facility] fire department to assess the patient. He believed the president was Chriss and thought it was December. A small gash was also found on his forehead that the patient cannot recall getting. Upon arrival to the ED via EMS, patient's vitals were notable for hypertension to 160s/70s, other vitals wnl. CT head without signs of acute abnormality. Bedside POCUS could not identify a pocket for possible paracentesis. Per and patient, he reports compliance with oral lactulose, taking it once day and having BMs at least 2x a day. However, noted a caveat to this: the prescription did not come with a measuring cup to accurately measure 15 mL of fluid; hence the patient was using an unlabeled cup to take the lactulose. He denies seeing blood in stool. Further denies nausea or vomiting. Currently feels unsteady on his feet and may fall if allowed to stand unattended. Of note, patient was recently admitted for an UGIB (02/08-02/14) related to DAPT (ASA and brilinta) from a recent CVA c/b residual deficits. Patient was found to have extensive varices on endoscopy warranting TIPS. PAST MEDICAL HISTORY History reviewed. No pertinent past medical history. Past Surgical History: Procedure Laterality Date COLONOSCOPY Lower 02/11/2024 Surgeon: Jonnathan Florez MD; Location: ENDOSCOPY () OR LOCATION ESOPHAGOGASTRODUODENOSCOPY Upper 02/11/2024 Surgeon: Jonnathan Florez MD; Location: [facility]) OR LOCATION RADIUS AND ULNA ORIF Right 02/25/2016 Surgeon: Ericka Bergman; [facility] SPLINT APPLICATION Right 02/25/2016 Surgeon: Ericka Bergman; [facility] ULWALDO ORIF Right 10/10/2016 Surgeon: Cuba Salgado MD; Location: [facility] ULNAR NON-UNION TAKEDOWN Right 10/10/2016 Surgeon: Cuba Salgado MD; Location: [facility] Location No family history on file. ALLERGIES Allergies Allergen Reactions Liver Nausea and/or Vomiting MEDICATIONS No current facility-administered medications on file prior to encounter. Current Outpatient Medications on File Prior to Encounter Medication Sig Dispense Refill aspirin 81 mg chewable tablet Take 1 tablet by mouth in the morning. 30 tablet 12 foLIC acid 1 mg tablet Take 1 tablet by mouth in the morning. 30 tablet 12 lactulose 10 gram/15 mL (15 mL) oral solution Take 15 mL by mouth in the morning. 300 mL 12 pantoprazole 40 mg EC tablet Take 1 tablet by mouth in the morning and 1 tablet in the evening. 30 tablet 12 nicotine 14 mg/24 hr patch Apply 1 Patch to area(s) every 24 (twenty-four) hours. 28 Each 1 atorvastatin (LIPITOR) 40 mg tablet Take 1 tablet by mouth at bedtime. metFORMIN 500 mg/5 mL SSRR Take 500 mg by mouth at bedtime. SOCIAL HISTORY Social History Socioeconomic History Marital status: Single Tobacco Use Smoking status: Former Smokeless tobacco: Never Substance and Sexual Activity Alcohol use: Yes Social Determinants of Health Financial Resource Strain: Low Risk (02/10/2024) Overall Financial Resource Strain (CARDIA) Difficulty of Paying Living Expenses: Not hard at all Food Insecurity: No Food Insecurity (02/10/2024) Hunger Vital Sign Worried About Running Out of Food in the Last Year: Never true Ran Out of Food in the Last Year: Never true Transportation Needs: No Transportation Needs (02/10/2024) PRAPARE - Transportation Lack of Transportation (Medical): No Lack of Transportation (Non-Medical): No Physical Activity: Inactive (02/10/2024) Exercise Vital Sign Days of Exercise per Week: 0 days Minutes of Exercise per Session: 0 min Social Connections: Unknown (02/10/2024) Social Connection and Isolation Panel [NHANES] Frequency of Communication with Friends and Family: More than three times a week Marital Status: Living with partner Housing Stability: Low Risk (02/10/2024) Housing Stability Vital Sign Unable to Pay for Housing in the Last Year: No Number of Places Lived in the Last Year: 1 Unstable Housing in the Last Year: No REVIEW OF SYSTEMS As per HPI Objective PHYSICAL EXAMINATION Vitals: 02/25/24 0943 02/25/24 1000 02/25/24 1200 BP: (!) 160/77 (!) 156/69 (!) 152/58 Pulse: 80 80 86 Resp: 14 17 Temp: 36.5 ?C (97.7 ?F) TempSrc: Oral SpO2: 99% 97% 98% Weight: 95.3 kg (210 lb) Height: 1.854 m (6' 1") Physical Exam Constitutional: Appearance: Normal appearance. Comments: Appearing uncomfortable, shifting in bed HENT: Head: Comments: Lesion noted on forehead Eyes: General: No scleral icterus. Extraocular Movements: Extraocular movements intact. Cardiovascular: Rate and Rhythm: Regular rhythm. Tachycardia present. Pulmonary: Effort: No respiratory distress. Breath sounds: Normal breath sounds. Abdominal: General: Abdomen is flat. There is no distension. Palpations: Abdomen is soft. Tenderness: There is no abdominal tenderness. There is no guarding or rebound. Musculoskeletal: Cervical back: Normal range of motion and neck supple. Tenderness present. No rigidity. Skin: General: Skin is warm and dry. Findings: No rash. Neurological: Mental Status: He is lethargic, disoriented and confused. Motor: Weakness present. Comments: Weakness noted in LUE; (+) asterixis LABS/IMAGING - reviewed XR CHEST 2 VW Result Date: 02/25/2024 No radiographic evidence of acute cardiopulmonary process. Preliminary Report Dictated by Resident: Cain Frederick MD., have reviewed this study and agree with the above report. CT HEAD WO CONTRAST Result Date: 02/25/2024 No acute intracranial abnormality. Preliminary Report Dictated by Resident: Tashia Monterroso MD., have reviewed this study and agree with the above report. Assessment & Plan Keyla Little is a 63 year old male with PMH as listed above, admitted to the hospital with: #Concern for hepatic encephalopathy 2/2 below #Decompensated Cirrhosis 2/2 ETOH Use Disorder (Portal HTN, esophageal/gastric varices, s/p TIPS and embolization 02/14/24) Given recent TIPS procedure, patient is at heightened risk for HE, which is likely explanatory to patient's current presentation of AMS. No current evidence of a head bleed 2/2 recent head trauma. Additionally, concern was noted that patient may not have taken an accurate quantity of lactulose. For now will resume lactulose TID, start rocephin for SBP ppx, and reach out to IR for possible paracentesis. -Admit to [facility] -C/w lactulose 15 mL PO TID -C/w folic acid 1 mg daily -C/w pantoprazole 40 mg PO BID -Start rocephin 2 g IV Q24H -BCx x2 -Consult IR for paracentesis -US abdomen limited w/ doppler -Fluid restriction & low sodium diet -PT/OT #Cerebrovascular accident involving R MCA infarct (12/2023) #Severe right ICA stenosis Remains on ASA without brilinta due to recent GIB. Eventual plan for stenting. - C/w ASA 81 - C/w lipitor 40 mg QHS Chronic issues: HTN | HLD Hx Tobacco Use Disorder DM-II - SSI Pain Not an active problemTylenol Prophylaxis: DVT- enoxaparin Stress Ulcer: pantoprazole Code Status: Full Code Cuco Ramos M.D., Ph.D. Internal Medicine, PGY-1 Associated attestation - Olvin Jose MD - 02/26/2024 8:23 AM CDT FACULTY NOTE - INTERNAL MEDICINE After discussion with the medical team, I examined this patient on 02/26/2024. I actively participated in the decision making process, and I agree with Dr. Ramos's resident note as written. Please see the resident's note for details. Olvin Jose MD, [employer] Management Specialist | Internal Medicine [facility] 2024-02-13 13:12:12 MICU H&P Date of Service: 02/13/2024 13:12 Name: Keyla Little : 1960 Age: [age] year old ICU day: 0 Intubation Day: N/A Transferred from: [facility] Team Code Status: Code Status: Full Code CC: hematemesis Reason for ICU admission: monitoring s/p TIPS HISTORY OF PRESENT ILLNESS Keyla Little is a 63 year old male with PMH Alcohol Abuse (6 beers day), tobacco use history (50 Pack Year hx), CVA, severe right ICA stenosis, HLD, DM-II admitted for hematemesis in the setting of recent initiation of Brilinta following recent stroke (previously on Eliquis, found to be subtherapeutic). Given IVF resuscitation as well as pRBCs. CTA performed without extravasation of contrast; showed cirrhotic liver morphology and peripancreatic edema. EGD/colonscopy performed with large nonbleeding esophageal, gastric, and rectal varices as well as severe portal hypertensive gastropathy, warranting IR consult for TIPS. TIPS performed 02/12 as well as embolization of embolization of gastroesophageal varices from short and L gastric veins and 2L para. Transferred to MICU for high risk monitoring s/p TIPS. On arrival, significantly hypertensive with BP 204/69. Otherwise VSS. Somnolent but denies pain. PAST MEDICAL HISTORY History reviewed. No pertinent past medical history. PAST SURGICAL HISTORY Past Surgical History: Procedure Laterality Date COLONOSCOPY Lower 02/11/2024 Surgeon: Jonnathan Florez MD; Location: [facility]OSCOPY ([facility]) OR LOCATION ESOPHAGOGASTRODUODENOSCOPY Upper 02/11/2024 Surgeon: Jonnathan Florez MD; Location: ENDOSCOPY ([facility]) OR LOCATION RADIUS AND ULNA ORIF Right 02/25/2016 Surgeon: Ericka Bergman; Location: [facility] [place] SPLINT APPLICATION Right 02/25/2016 Surgeon: Ericka Bergman; Location: [facility] [place] ULNA ORIF Right 10/10/2016 Surgeon: Cuba Salgado MD; Location: [facility] [place] ULNAR NON-UNION TAKEDOWN Right 10/10/2016 Surgeon: Cuba Salgado MD; Location: [facility] Location FAMILY HISTORY No family history on file. SOCIAL HISTORY Social History Socioeconomic History Marital status: Single Tobacco Use Smoking status: Former Smokeless tobacco: Never Substance and Sexual Activity Alcohol use: Yes Social Determinants of Health Financial Resource Strain: Low Risk (02/10/2024) Overall Financial Resource Strain (CARDIA) Difficulty of Paying Living Expenses: Not hard at all Food Insecurity: No Food Insecurity (02/10/2024) Hunger Vital Sign Worried About Running Out of Food in the Last Year: Never true Ran Out of Food in the Last Year: Never true Transportation Needs: No Transportation Needs (02/10/2024) PRAPARE - Transportation Lack of Transportation (Medical): No Lack of Transportation (Non-Medical): No Physical Activity: Inactive (02/10/2024) Exercise Vital Sign Days of Exercise per Week: 0 days Minutes of Exercise per Session: 0 min Social Connections: Unknown (02/10/2024) Social Connection and Isolation Panel [NHANES] Frequency of Communication with Friends and Family: More than three times a week Marital Status: Living with partner Housing Stability: Low Risk (02/10/2024) Housing Stability Vital Sign Unable to Pay for Housing in the Last Year: No Number of Places Lived in the Last Year: 1 Unstable Housing in the Last Year: No ALLERGIES Allergies Allergen Reactions Liver Nausea and/or Vomiting REVIEW OF SYSTEMS (-)=Negative,(+)=Positive Negative unless otherwise stated above. PHYSICAL EXAMINATION Vitals: 02/12/24 1952 02/12/24 2308 02/13/24 0300 02/13/24 0744 BP: 131/68 124/61 104/65 121/62 BP Location: Patient Position: Pulse: 68 70 66 69 Resp: 17 17 18 20 Temp: 36.6 ?C (97.8 ?F) 37.2 ?C (98.9 ?F) 36.5 ?C (97.7 ?F) 36.6 ?C (97.9 ?F) TempSrc: SpO2: 95% 93% 91% 93% Weight: Height: Vitals Ventilation / Pressors Sedation / Paralyzation Temp: [36.5 ?C (97.7 ?F)-37.2 ?C (98.9 ?F)] Pulse: [64-70] Resp: [17-20] BP: (102-131)/(58-68) Arterial Line BP: (-9-255)/(-20-225) MAP (mmHg): [73-89] Appearance: patient somnolent 2/2 recent anesthesia HEENT: NCAT, MMM Cardiovascular: regular rate and rhythm, no murmur or gallops Respiratory: clear to auscultation bilaterally; simple face mask in place Abdomen: somewhat distended, NABS Extremities: trace peripheral edema Skin: warm and dry Labs (pertinent only)/Imaging: No final results containing an impression from the past 48 hours were found. Assessment/Plan: Keyla Little is a 63 year old male admitted with hematemesis secondary to varices Respiratory No acute concerns Cardiovascular HTN urgency HLD Significant HTN on arrival to MICU without evidence of prior similar readings. Likely transient in the setting of procedure and intraprocedural vasoactive medications. - monitor - can add temporary BP medication if elevated BP persists - c/w ASA ID - s/p CTX variceal bleed ppx Renal No acute concerns GI Cirrhosis (MELD 9) likely 2/2 chronic alcohol use Stigmata of cirrhosis (portal HTN, EV, gastric/rectal varices) c/b hematemesis Peripancreatic edema & splenomegaly likely 2/2 above S/p TIPS for EV as well as short and L gastric veins supplying varices. Hgb stable following this. - transition to IVP protonix - s/p CTX as above - s/p octreotide variceal bleed ppx - monitor INR - give Heplisav dose 1/2 prior to discharge Neuro Cerebrovascular accident involving R MCA infarct (12/2023) Severe right ICA stenosis Remains on ASA per neurology recs. Holding brilinta. Eventual plan for stenting following recovery from planned TIPS. - C/w ASA 81 - C/w lipitor 40 mg qhs - Monitor mentation Endo T2DM - SSI Other Acute blood loss anemia on chronic anemia Dispo: MICU Prognosis: guarded DVT prophylaxis: contraindicated Stress ulcer prophylaxis: PPI Code Status: Full Code Marisol Barrett MD PGY-2 | Internal Medicine Associated attestation - Artem Ko DO - 02/14/2024 10:16 AM CDT I personally examined the patient on 02/13/[address] Barrett's resident note as written . I actively participated in the decision-making process. Please see the resident's note for additional details. Artem Ko DO Interventional Pulmonology [facility] 2024-02-11 08:14:18 Endoscopy H & P Age: [age] year old Sex: male ASA Class: 2 Indication: hematemesis Family history of Colon Cancer/Polyps: no Blood thinners: Brilinta 02/07 Previous Endoscopy: N/a History reviewed. No pertinent past medical history. Current Facility-Administered Medications Medication Dose Route Frequency Last Rate Last Admin cefTRIAXone (ROCEPHIN) 1,000 mg in NaCl 0.9% (NS) 100 mL VIAL-MATE 1,000 mg IV Piggyback Q24H ABX Stopped at 02/10/24 0926 aspirin chewable tablet 81 mg 81 mg Oral DAILY 81 mg at 02/10/24 0819 atorvastatin (LIPITOR) tablet 40 mg 40 mg Oral QHS 40 mg at 02/10/242011 dextrose 50 % in water (D50W) injection 25 mL 25 mL Slow IV Push PRN foLIC acid (FOLATE) 5 mg in NaCl 0.9% (NS) piggyback 5 mg IV Piggyback DAILY Stopped at 02/10/24 0852 glucagon (GLUCAGEN DIAGNOSTIC KIT) injection 1 mg 1 mg Intramuscular PRN octreotide (SANDOSTATIN) 500 mcg in NaCl 0.9% (NS) 100 mL infusion 50 mcg/hr IV Infusion CONTINUOUS 10 mL/hr at 02/11/24 0305 50 mcg/hr at 02/11/24 0305 ondansetron (ZOFRAN (PF)) injection 4 mg 4 mg Slow IV Push Q6HPRN 4 mg at 02/09/24 0751 pantoprazole (PROTONIX) 80 mg in NaCl 0.9%(NS) 500 mL IV infusion (CNR) 8 mg/hr IV Infusion CONTINUOUS 50 mL/hr at 02/10/24 1034 8 mg/hr at 02/10/24 1034 Sliding Scale Insulin - Lispro (HumaLOG) Subcutaneous TID MEALS+HS 1 Units at 02/10/242011 Allergies Allergen Reactions Liver Nausea and/or Vomiting Social History Socioeconomic History Marital status: Single Tobacco Use Smoking status: Former Smokeless tobacco: Never Substance and Sexual Activity Alcohol use: Yes Social Determinants of Health Financial Resource Strain: Low Risk (02/10/2024) Overall Financial Resource Strain (CARDIA) Difficulty of Paying Living Expenses: Not hard at all Food Insecurity: No Food Insecurity (02/10/2024) Hunger Vital Sign Worried About Running Out of Food in the Last Year: Never true Ran Out of Food in the Last Year: Never true Transportation Needs: No Transportation Needs (02/10/2024) PRAPARE - Transportation Lack of Transportation (Medical): No Lack of Transportation (Non-Medical): No Physical Activity: Inactive (02/10/2024) Exercise Vital Sign Days of Exercise per Week: 0 days Minutes of Exercise per Session: 0 min Social Connections: Unknown (02/10/2024) Social Connection and Isolation Panel [NHANES] Frequency of Communication with Friends and Family: More than three times a week Marital Status: Living with partner Housing Stability: Low Risk (02/10/2024) Housing Stability Vital Sign Unable to Pay for Housing in the Last Year: No Number of Places Lived in the Last Year: 1 Unstable Housing in the Last Year: No Mental Status: NAD, alert, answering questions appropriately Chest: no increased WOB or respiratory distress Cardiovascular: regular rate, warm, well perfused, no LE edema Abdomen: bowel sounds present, soft, non tender Impression and Plan: Hematemesis Suspected Cirrhosis Will proceed with EGD to eval source. Colonoscopy planned as patient due for Neurovascular stenting and will need antiplatelet therapy. Education provided to the patient and family about the procedure. Benefits, risks, alternatives, and likelihood of achieving patient's goals of care discussed. Risks discussed including but not limited to aspiration, infection, bleeding, perforation, missed polyps/lesions, failure to obtain a diagnosis, failure to complete the procedure, cardiovascular complications such as OR, stroke, arrhythmia, and . Informed consent obtained. Paulo Irizarry DO Gastroenterology PGY 5 Pager#[phone] Associated attestation - Jonnathan Florez MD - 02/11/2024 10:30 AM CDT I personally interviewed/examined the patient on 02/11/[address] Irizarry's resident/fellow note as written . I actively participated in the decision-making process. Please see the resident's note for additional details. [facility] 2024-02-09 06:30:47 Medicine Intensive Care History and Physical Date of Service: 02/09/2024 06:31 Hospital day: Hospital Day: 1 ICU admit day: Intubation day: CHIEF COMPLAINT: Vomiting Blood History of Present Illness Keyla Little is a 63 year old male with Alcohol Abuse (6 beers day), tobacco use history (50 Pack Year hx), CVA, severe right ICA stenosis, HLD, DM-II who presented for Hematemesis. Patient presented to ER with a complaint of vomiting blood since midnight, bringing a garbage bag filled with over 1 liter of bright red blood. He was recently switched from Eliquis to Brilinta following a CVA earlier this month. The patient has ceased alcohol and tobacco use six weeks ago and had no unusual circumstances during the day. He experienced nausea and vomited what he describes as straight blood three separate times this evening. Upon arrival, he was hypotensive, pale, and slow to respond, with slurred speech, but was alert and oriented to person, place, time, and event (AAOx4). The patient reported abdominal pain and a history of a stroke. He denies any history of GERD, alcoholism, or esophageal varices. In the ED, BP 93.55, RR 15, PP 75, given 2L Bolus, and transfused 1 U of blood, Hgb stabilized. When seen pt was doing okay, he was responsive, VVS, BP was 120/80, denied having any more ep of vomiting blood, denied melena, hematochezia, any ingestion of any other products. Denied having any knowledge of liver disease hx. Hospital Course 01/31/24 - 02/03/24 Neurology Stroke Service Keyla Little is a 63 year old man with PMHX of tobacco use history (30PY), HLD, DM-II, who presented on 01/31/24 with recurrent left sided weakness and numbness after a recent right MCA stroke (12/16/23) with severe right ICA stenosis from ulcerated plaque. He was admitted 12/16/2023 to 12/19/2023 for acute dense left face/arm/leg weakness/numbness and leg hemineglect (LSN 11 AM 12/16/23). He was not given acute intervention given his NIHSS returned from 9 to 0 while in the ER. Inpatient workup included CTA H/N showing right ICA near occlusion with likely ruptured atherosclerotic plaque and right inferior M2 occlusion. MRI showed subacute right MCA infarction. TTE (12/16/2023) with EF of 55-60%, normal size LA, possible small PFO (<30 microbubbles). He was discharged on eliquis 5 BID, aspirin 81 daily, lipitor [address] Haines in the clinic on 01/14/24. Physical exam was normal at that time. He was continued on aspirin and eliquis. Elective DSA was planned. However, he experienced recurrent left sided weakness and numbness before the scheduled date and was sent to ER. Most recent imaging of CTH, CTA H/N, MRI brain (01/31/2024) did not demonstrate any new findings or new stroke/bleed. He underwent DSA while inpatient with Dr. Haines on 02/01/2024 that showed severe right ICA stenosis that warrants endovascular intervention. Eliquis was discontinued; plavix was added to aspirin. PRU checked and showed plavix as non-therapeutic. He was switched to brilinta from plavix. Plan is to continue brilinta 90mg BID and aspirin 325mg QD for two weeks until repeat DSA for possible right ICA angioplasty. PRU at 174 on Brilinta, hence therapeutic. Patient is neurologically stable and medically optimized for discharge. MEDICAL, SURGICAL, FAMILY, SOCIAL HISTORY has no past medical history on file. has a past surgical history that includes radius and ulna orif (Right, 02/25/2016); splint application (Right, 02/25/2016); ulnar non-union takedown (Right, 10/10/2016); and ulna orif (Right, 10/10/2016). family history is not on file. reports that he has quit smoking. He has never used smokeless tobacco. He reports current alcohol use. ALLERGIES has No Known Allergies. HOME MEDS Current Outpatient Medications Medication Instructions aspirin 325 mg, Oral, DAILY atorvastatin (LIPITOR) 40 mg, Oral, QHS Brilinta 90 mg, Oral, BID metFORMIN (RIOMET ER) 500 mg, Oral, DAILY nicotine 14 mg/24 hr patch 1 Patch, Topical, Q24H Objective PHYSICAL EXAMINATION Vitals: 02/09/24 0430 02/09/24 0500 02/09/24 0530 02/09/24 0600 BP: 129/63 127/62 98/74 119/71 Pulse: 81 77 80 79 Resp: 17 17 18 17 Temp: TempSrc: SpO2: 97% 98% 97% 100% Height: Constitutional: alert and oriented x 4 (person, place, date/time, and situation); no apparent distress HEENT: normocephalic atraumatic Neck: supple, no lymphadenopathy, no bruits, no JVD Resp: clear to auscultation bilaterally Cardio: regular rate and rhythm GI: soft; non-tender; non-distended; normoactive bowel sounds : not examined Rectal: not examined MSK: no clubbing, cyanosis, or edema Integ: no rashes Neuro: no focal deficits Labs/Imaging: Labs (last 24 hours): Chemistry CBC LFTs Coags, other 139 107 15 269 (H) 8.22 8.7 (L) 100 (L) AST: 28 ALT: 24 PT: 11.7 INR: 1.0 3.7 27 1.07 27.2 (L) AP: 42 T Valentin: 0.5 PTT: 21 (L) eGFR: 79.0 Ca: 8.8 % Jim: 45.1 Prot: 6.9 Alb: 3.5 Lact: - Mg: - PO4: - ANC: 5.28 Procal: - Respiratory Cardiac -|-|-|-|- D-dimer: - pBNP: - Trop I: - CK: - CKMB: - No final results containing an impression from the past 2 days were found. Microbiology: Not indicated as of right now Assessment & Plan Keyla Little is a 63 year old male admitted with UGIB secondary to Neuro Cerebrovascular accident (CVA) Hx Evolving right MCA infarct, no definite new stroke Severe right ICA stenosis No neurological sx, but given recent discharge from neuro service, coupled with complicated neurological hx, recent switch in DAPT, will consult Neuro for their input - Consult Neuro, Appreciate recs - Monitor Mentation Resp No active Problems Cardiovascular HTN | HLD Hx Tobacco Use Disorder Chronic, stable - Hold home meds in the setting of hypotension - C/t monitor FEN/GI Hematemesis 2/2 ? Variceal bleed due to Cirrhotic liver (MELD 10) Portal Hypertension Severe splenomegaly Hx Alcohol Abuse Hx Tobacco Use Disorder Long hx of alcohol use, long hx of Tobacco use, quit few months ago, newly diagnosis cirrhosis in the setting of current DAPT use due to recent CVA and stenosis, GI on board will likely require an EGD, consulted Neuro for DAPT requirement, ensure blood transfusion - Maintain 2 large bore IV lines - Monitor Hgb q6h, transfuse if there is active bleeding or Hb<7 - Maintain active type and cross at all times - Check INR and correct to 1.5 or below - Give plts if less than 50 - Check fibrinogen and give cryo if less than 150 - Check iron studies (iron, ferritin, TIBC, %sat) - Protonix 80 mg IV bolus and then 8 mg/hr - Octreotide 100 mcg bolus and then 50 mcg/hr - Rocephin for infection prophylaxis - Hold all anti-platelet agents and anticoagulation at this time - NPO - 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 any changes ID No active Problems Renal No active Problems Endo DM-II Chronic, stable for now - SSI as needed Other DVT ppx: contraindicated Stress ulcer ppx: PPI Nutrition: route - NPO Patient Lines/Drains/Airways Status Active LDAs Name Placement date Placement time Site Days Peripheral IV 02/09/24 0133 Right Antecubital Ultrasound not used 02/09/24 0133 Antecubital less than 1 Peripheral IV 02/09/24 0136 Left Antecubital Ultrasound not used 02/09/24 0136 Antecubital less than 1 Wound 12/04/21 2300 Abrasion Arm Anterior;Left;Lower;Proximal 12/04/21 2300 Arm 796 Dispo: MICU Prognosis: guarded Discharge planning: TBD Code status: Prior Elmer Reyna MD, MSc Department of Internal Medicine, PGY3 Associated attestation - Artem Ko DO - 02/09/2024 1:47 PM CDT I personally examined the patient on 02/09/[address] Reyna's resident note as written . I actively participated in the decision-making process. Please see the resident's note for additional details. Keyla Little is a 63 year old male with upper GI bleeding, possibly cirrhosis. HD status improved after fluid and bloods. Plan for EGD, octreotide, pantoprazole. Artem Ko DO Interventional Pulmonology [facility] 2024-01-31 15:56:59 STROKE SERVICE HISTORY AND PHYSICAL DATE OF SERVICE: 01/31/2024 16:08 CHIEF COMPLAINT: recurrent left sided weakness and numbness HISTORY OF PRESENT ILLNESS Keyla Little is a 63 year old man with PMHX of HTN, HLD, DM-II, who presented on 01/31/24 with recurrent L weakness and numbness after a recent right MCA stroke (12/16/23) with severe right ICA stenosis from ulcerated plaque. He was LSN at 2 AM (>24 hour prior to presentation). He was admitted 12/16/2023 to 12/19/2023 for acute dense left face/arm/leg weakness/numbness and leg hemineglect (LSN 11 AM 12/16/23). He was not given acute intervention given his NIHSS returned from 9 to 0 while in the ER. He was found to have likely ruptured right ICA plaque. Inpatient workup included CTA head and neck showing right ICA near occlusion likely with ruptured atherosclerotic plaque and right inferior M2 occlusion. MRI showed subacute right MCA infarction. He was discharged on eliquis 5 BID, aspirin 81 daily, lipitor 40 nightly, and saw Dr. Haines in the clinic on 01/14/24 when his exam was normal and he was continued on aspirin and eliquis. Elective DSA was planned. Antiplatelets: Yes aspirin 81 mg daily Anticoagulations: Yes eliquis 5 mg BID Tobacco abuse: Yes former 1 pack per day for 30 years Alcohol abuse: No Drug abuse: No Previous stroke: Yes as above Body mass index is 23.11 kg/m?. STROKE DOCUMENTATION Stroke Activation - Date: 01/31/24 Stroke Activation - Time: 1535 Physician arrival at bedside - Date: 01/31/24 Physician arrival at bedside - Time: 1540 CT-Head without contrast read by Neurology: 1550 Last seen normal: Last known well - Date: 01/31/24 Last known well - Time: 0200 Wake up stroke: Yes NIH STROKE SCALE NIHSS TOTAL: 7 NIHSS Interval: Admission LOC: 0 Alert: Keenly Responsive LOC QUESTIONS: 0 Answers Both Questions Correctly LOC COMMANDS: 0 Performs Both Tasks Correctly BEST GAZE: 0 Normal VISUAL: 0 No Visual Loss FACIAL PALSY: 2 Partial Paralysis MOTOR ARM-LEFT: 2 Some Effort Against Post MOTOR ARM-RIGHT: 0 No Drift MOTOR LEG-LEFT: 2 Some Effort Against Post MOTOR LEG-RIGHT: 0 No Drift LIMB ATAXIA: 0 Absent SENSORY: 1 [id number] Sensory Loss BEST LANGUAGE: 0 No Aphasia DYSARTHRIA: 0 Normal EXTINCTION AND INATTENTION (FORMERLY NEGLECT): 0 No Abnormalty Dysphagia Screen: IV Tenecteplase: Was IV thrombolytic therapy given?: No Reason no IV thrombolytic therapy initiated: Arrival > 4.5 hours from symptom onset If IV Thrombolytic therapy was indicated and given as a standard of care was the patient/family informed of benefits of treatment and risk such as hemorrhage and/or angioedema?: (not recorded) Was there a delay in door to IV thrombolytic over 30 minutes?: (not recorded) Reason (s): (not recorded) ICH/SAH ICH/SAH: No Endovascular Intervention: Was Endovascular Intervention Performed?: No Reason patient is not a candidate for endovascular intervention: Imaging: no large vessel occlusion PRE- ADMISSION MODIFIED SIRI SCORE 0 - No symptoms at all PAST MEDICAL HISTORY No past medical history on file. PAST SURGICAL HISTORY Past Surgical History: Procedure Laterality Date RADIUS AND ULNA ORIF Right 02/25/2016 Surgeon: Ericka Bergman; [facility] SPLINT APPLICATION Right 02/25/2016 Surgeon: Ericka Bergman; Location: [facility] [place] ULNA ORIF Right 10/10/2016 Surgeon: Cuba Salgado MD; [facility] [place] ULNAR NON-UNION TAKEDOWN Right 10/10/2016 Surgeon: Cuba Salgado MD; Location: [facility] [place] FAMILY HISTORY No family history on file. SOCIAL HISTORY Social History Socioeconomic History Marital status: Single Tobacco Use Smoking status: Former Smokeless tobacco: Never Substance and Sexual Activity Alcohol use: Yes Social Determinants of Health Financial Resource Strain: Low Risk (12/17/2023) Overall Financial Resource Strain (CARDIA) Difficulty of Paying Living Expenses: Not hard at all Food Insecurity: No Food Insecurity (12/17/2023) Hunger Vital Sign Worried About Running Out of Food in the Last Year: Never true Ran Out of Food in the Last Year: Never true Transportation Needs: No Transportation Needs (12/17/2023) PRAPARE - Transportation Lack of Transportation (Medical): No Lack of Transportation (Non-Medical): No Physical Activity: Inactive (12/17/2023) Exercise Vital Sign Days of Exercise per Week: 0 days Minutes of Exercise per Session: 0 min Social Connections: Unknown (12/17/2023) Social Connection and Isolation Panel [NHANES] Frequency of Communication with Friends and Family: Once a week Marital Status: Living with partner Housing Stability: Low Risk (12/17/2023) Housing Stability Vital Sign Unable to Pay for Housing in the Last Year: No Number of Places Lived in the Last Year: 1 Unstable Housing in the Last Year: No Reviewed patient's family, surgical and social hx. HOME MEDICATIONS (Not in a hospital admission) HOSPITAL MEDICATIONS Current Facility-Administered Medications Medication Dose Route Frequency Last Rate Last Admin apixaban (ELIQUIS) tablet 5 mg 5 mg Oral BID [START ON 02/01/2024] aspirin chewable tablet 81 mg 81 mg Oral DAILY atorvastatin (LIPITOR) tablet 40 mg 40 mg Oral QHS labetaloL (NORMODYNE) injection 10 mg 10 mg Slow IV Push F24EDCM NaCl 0.9% (NS) injection 5 mL 5 mL Slow IV Push PRN - SEE INSTRUCTIONS nicotine (NICODERM) 14 mg/24 hr patch 1 Patch 1 Patch Topical Q24H Current Outpatient Medications Medication Sig Dispense Refill apixaban 5 mg tablet Take 1 tablet by mouth in the morning and 1 tablet in the evening. Indications: acute thromboembolic stroke, Right ICA ruptured plaque 60 tablet 0 aspirin 81 mg chewable tablet Take 1 tablet by mouth in the morning. 90 tablet 1 nicotine 14 mg/24 hr patch Apply 1 Patch to area(s) every 24 (twenty-four) hours. 28 Each 1 atorvastatin (LIPITOR) 40 mg tablet Take 1 tablet by mouth at bedtime. metFORMIN 500 mg/5 mL SSRR Take 500 mg by mouth in the morning. ALLERGY No Known Allergies REVIEW OF SYSTEMS General: (-) fever, (-) chills, (-) weight change, (-) dizziness, (-) fatigue, (-) change in appetite Skin: (-) rash, (-) lesion HEENT: (-) headache, (-) change in hearing, (-) change in vision, (-) nasal discharge, (-) sore throat Neck: (-) pain, (-) difficulty swallowing, (-) mass Heme: (-) bleeding disorder Resp: (-) cough, (-) shortness of breath, (-) dyspnea on exertion Cardio: (-) chest pain, (-) palpitations, (-) syncope GI: (-) abdominal pain, (-) nausea, (-) vomiting, (-) diarrhea, (-) constipation, (-) melena, (-) hematochezia, (-) hematemesis : (-) dysuria, (-) hematuria, (-) increased frequency, (-) difficulty urinating, (-) difficulty initiating Endo: (-) heat intolerance, (-) diabetes, (-) cold intolerance, (-) polyuria, (-) polydipsia, (-) renal insufficiency, (-) thyroid disease Neuro: (-) numbness, (-) tingling, (-) weakness Back: (-) pain, (-) spasms MALVIN: (-) muscle pain, (-) joint pain, (-) claudication Psych: (-) anxiety, (-) depression, (-) psychiatric disorder PHYSICAL EXAM Vitals: 01/31/24 1531 01/31/24 1532 01/31/24 1600 BP: (!) 143/77 139/78 Pulse: 75 73 Resp: 17 16 Temp: 36.4 ?C (97.5 ?F) TempSrc: Oral SpO2: 97% 99% Weight: 81.6 kg (180 lb) Height: 1.88 m (6' 2") General: Well appearing. Dressed in hospital gowns. No apparent distress. Mental Status: Alert and oriented x4 (person, place, time, and situation). Consciousness, attention, concentration: normal, Stays focused and on task while being questioned. Language: intact to comprehension, fluency, repetition and naming. Fund of knowledge: is congruent with level of education. Remote and recent memory: normal. Cranial Nerves: I. Not tested. II. Symmetric, equally reactive pupils. Field of vision intact to confrontation in either of the four quadrants. III. IV., . Extraocular movements intact without nystagmus . V. Normal sensation bilaterally in V1-3 distributions. VII. No facial droop noted. VIII. Hearing intact to finger rubbing in either ear. IX., X. Palatal elevation normal symmetrically. XI. Normal strength of sternocleidomastoid and trapezius muscles bilaterally. XII. Tongue in midline. Motor system: Tone: normal Bulk: normal Strength Right Left Deltoid 5 4 Biceps 5 4 Triceps 5 4 Wrist extensors 5 4 Interossei 5 4 Hip flexors 5 4 Knee flexors (hamstring) 5 4 Knee extensors (quadriceps) 5 4 Ankle dorsiflexors 5 4 Ankle plantar flexors 5 4 Deep Tendon Reflexes Right Left Biceps 2+ 2+ Triceps 2+ 2+ Brachioradialis 2+ 2+ Patella 2+ 2+ Achilles 1+ 1+ Pathologic reflexes and signs: Ankle clonus: absent Hollingsworth's sign: negative bilaterally. Plantar response: mute bilaterally Cerebellum: Negative: tremors, nystagmus, rapid alternating movements, yqokso-pv-dimd testing, dbso-xb-gbij testing Sensory system: Gross touch reduced on left face, arm and leg Gait: Deferred. General examination: HEENT: moist mucus membranes. Clear oropharynx. Lungs: normal breath sounds. No abnormal sounds. Cardio: normal heart sounds. No added sounds. Extremities: no cyanosis, clubbing or edema. Neck: supple. No carotid bruit or JVD. Abdomen: normal contour. Soft, non-tender to palpation. Normoactive bowel sounds. LABS, RADIOLOGY, ELECTROPHYSIOLOGY Relevant labs: WBC 4.02, PLT 106, RBC 9.5 INR 1.1, Na 136, K 3.9, GFR 95.9, Cr 0.91 MRI brain (12/17/23: Acute/subacute infarct in the right MCA territory. CTA head and neck (12/16/23): Prelim impression: 1. Complete occlusion of the right M2 segment. 2. Near Complete occlusion of the right internal carotid artery with a soft atherosclerotic plaque. 3. Approximately 40% stenosis of the left internal carotid artery. 4. Significant stenosis of the intracranial segments of the bilateral internal carotid arteries, as described. ASSESSMENT AND PLAN Keyla Little is a 63 year old man with PMHX of HTN, HLD, DM-II, who presented on 01/31/24 with recurrent L weakness and numbness after a recent right MCA stroke (12/16/23) with severe right ICA stenosis from ulcerated plaque. He was LSN at 2 AM (>24 hour prior to presentation). NIHSS 7. CT head and CTA head and neck are similar to recent scans with no new abnormalities. Not a candidate for thrombolysis given LSN >4.5 hour or thrombectomy given CTA showed no new LVO. We will admit him for stroke workup and hold eliquis given potential acute stroke. Acute ischemic stroke Right ICA near-occlusion - Admission under Neurology service - Q4H Neurochecks - Continue aspirin 81 daily - Hold eliquis 5 BID - Lipitor 40 mg nightly and adjust according to LDL - <220/110 for ischemic stroke first 24h, then resume home anti-hypertensive medications for goal normo-tension - Obtain CBC, BMP, fasting Lipid panel, HgA1c, TSH, PT, PTT, Troponin x 1, EKG - Telemetry monitoring - Sliding scale of insulin - Avoid hyperthermia, pain and constipation - Fall precautions - Consult PT/OT/ Speech pathology/Primary swallowing screen - Lead Caster Helper on stroke education, smoking cessation, healthy diet, physical activity, weight loss Imaging: - MRI brain without contrast - GI Prophylaxis: famotidine - DVT Prophylaxis: enoxaparin - Code status: full code Case discussed with Alonso Enriquez MD, Vascular Neurology Faculty and will be staffed with Dr. Parker today. Cristopher Huizar MD Neurology resident Vascular Neurology Service [facility] Associated attestation - Marleny Parker MD - 02/01/2024 12:14 PM CDT I personally examined patient on 02/01/2024 following the Multidisciplinary Rounds with the Stroke Team in the presence of representatives from PT/OT/care management and utilization teams. I agree with resident's note, Dr. Huizar. I actively participated in the medical decision making process. Please see the resident's note for additional details. 63-year-old right-handed man with multiple stroke risk factors as per the note who presents with recurrent left-sided weakness and numbness. He is known to our service from prior admission on 12/16/2023 with acute right MCA stroke related to severe atherosclerotic stenosis of the cervical right internal carotid artery. He was found to have a thrombus at the stenotic segment was discharged home on anticoagulation. He returns with recurrent symptoms of left-sided numbness and weakness. I personally reviewed multiple cranio-cervical images from 01/31/[address] head, CTA head, and CTA neck; I agree with the radiologist's reading. Severe atherosclerotic stenosis at origin of the right internal carotid artery, no acute intracranial abnormality. On examination, NIH stroke scale of 7 with left-sided weakness and facial droop. Vital signs are stable with a BP 130s to 140s, a middle aged man well-appearing in no distress, alert and oriented x 4. WBC 4.02, PLT 106, RBC C9.5, NA 136 and GFR 95.9 Recurrent left-sided weakness and numbness, TIA Atherosclerotic severe stenosis of cervical right internal carotid artery Hypertension requiring treatment Hypercholesterolemia requiring treatment Diabetes requiring treatment Agree with current medical management and secondary stroke prevention Cerebral angiogram to better assess cervical atherosclerotic stenosis Hold Eliis for now PT OT and speech therapy evaluation I spent a Total Time of 81 minutes. The time spent for patient care includes: PreCharting (eg, review of tests, notes, etc.), Performing a medically appropriate examination and/or evaluation, Counseling and educating the patient/family/caregiver, Ordering medications, tests, or procedures, Ordering referrals and/or communicating with other health home health aide caregiver (when not separately reported), Documenting clinical information in the electronic or other health record, and Independently interpreting results (not separately reported) and/or communicating results to the patient/family/caregiver. [facility] 2023-12-16 18:15:10 NEUROSCIENCES CRITICAL CARE UNIT HISTORY AND PHYSICAL DATE OF SERVICE: 12/16/2023 18:38 CHIEF COMPLAINT: left sided weakness Code status: addressed: full code HISTORY OF PRESENT ILLNESS Keyla Little is a 63 year old man with PMHX of HTN, HLD, DM-II, who was brought by EMS on 12/16/23 as stroke activation for acute dense left face/arm/leg weakness (LSN 11 AM 12/16/23). His symptoms resolved but he is admitted to the ICU given CTA showed right ICA near occlusion with soft plaque. History taken from the patient and his . She reports they went to the vet to treat their dog. He came back at 11 AM and was normal at that time. He then started to complain of tiredness and fell at 12 PM (witnessed by ). She then called EMS. On arrival, he was able to provide history to staff standing on right but not left side. His reports he might have had a stroke in Oct 2023. He had sudden severely slurred speech (and no other neurologic deficits) and went to an ER. His symptoms improved within 30-60 minutes and no scans were done. Denied having any residual symptoms. Antiplatelets: No Anticoagulations: No Tobacco abuse: Yes former 1 pack per day for 30 years Alcohol abuse: Yes Drug abuse: No Previous stroke: Yes as above Body mass index is 24.39 kg/m?. STROKE DOCUMENTATION Stroke Activation - Date: 12/16/23 Stroke Activation - Time: 1303 Physician arrival at bedside - Date: 12/16/23 Physician arrival at bedside - Time: 1306 CT-Head without contrast read by Neurology: 1315 Last seen normal: Last known well - Date: 12/16/23 Last known well - Time: 1100 Wake up stroke: No NIH STROKE SCALE NIHSS TOTAL: 0 NIHSS Interval: Admission LOC: 0 Alert: Keenly Responsive LOC QUESTIONS: 0 Answers Both Questions Correctly LOC COMMANDS: 0 Performs Both Tasks Correctly BEST GAZE: 0 Normal VISUAL: 0 No Visual Loss FACIAL PALSY: 0 Normal MOTOR ARM-LEFT: 0 No Drift MOTOR ARM-RIGHT: 0 No Drift MOTOR LEG-LEFT: 0 No Drift MOTOR LEG-RIGHT: 0 No Drift LIMB ATAXIA: 0 Absent SENSORY: 0 Normal BEST LANGUAGE: 0 No Aphasia DYSARTHRIA: 0 Normal EXTINCTION AND INATTENTION (FORMERLY NEGLECT): 0 No Abnormalty Dysphagia Screen: Dysphagia Screen Step 1 (Exclusion Criteria): Pass (none of the above) Dysphagia Screen Step 2 (Management of secretions): Pass (none of the above) Dysphagia Screen Step 3 (3-ounce water swallow challenge): Pass (none of the above) IV tenecteplase: Was IV thrombolytic therapy given?: No Reason no IV thrombolytic therapy initiated: NIH equals 0 If IV Thrombolytic therapy was indicated and given as a standard of care was the patient/family informed of benefits of treatment and risk such as hemorrhage and/or angioedema?: (not recorded) Was there a delay in door to IV thrombolytic over 30 minutes?: (not recorded) Reason (s): (not recorded) ICH/SAH ICH/SAH: No Endovascular Intervention: Was Endovascular Intervention Performed?: No Reason patient is not a candidate for endovascular intervention: NIH less than or equal to 6 PRE- ADMISSION MODIFIED SIRI SCORE 0 - No symptoms at all PAST MEDICAL HISTORY No past medical history on file. PAST SURGICAL HISTORY Past Surgical History: Procedure Laterality Date RADIUS AND ULNA ORIF Right 02/25/2016 Surgeon: Ericka Bergman; [facility] SPLINT APPLICATION Right 02/25/2016 Surgeon: Ericka Bergman; Location: [facility] ULNA ORIF Right 10/10/2016 Surgeon: Cuba Salgado MD; Location[facility] [place] ULNAR NON-UNION TAKEDOWN Right 10/10/2016 Surgeon: Cuba Salgado MD; Location: [facility] FAMILY HISTORY No family history on file. SOCIAL HISTORY reports that he has quit smoking. He has never used smokeless tobacco. He reports current alcohol use. Reviewed patient's family, surgical and social hx. HOME MEDICATIONS Current Outpatient Medications Medication Instructions atorvastatin (LIPITOR) 40 mg, Oral, QHS lisinopriL (PRINIVIL,ZESTRIL) 10 mg, Oral, DAILY metFORMIN (RIOMET ER) 500 mg, Oral, DAILY HOSPITAL MEDICATIONS Scheduled meds: IV meds: PRN meds: [START ON 12/17/2023] aspirin, 81 mg, DAILY [START ON 12/17/2023] atorvastatin, 40 mg, QHS [START ON 12/17/2023] clopidogreL, 75 mg, DAILY [START ON 12/17/2023] enoxaparin (LOVENOX) SC Syringe, 40 mg, DAILY famotidine, 20 mg, BID insulin lispro (human), , TID MEALS+HS Na CL 0.9% + KCL 20 mEq RTU NaCl 0.9% (NS) dextrose 50 % in water (D50W), 25 mL, PRN glucagon, 1 mg, PRN labetaloL, 10 mg, F47DMKH NaCl 0.9% (NS), 5 mL, PRN - SEE INSTRUCTIONS ALLERGY has No Known Allergies. REVIEW OF SYSTEMS General: (-) fever, (-) chills, (-) weight change, (-) dizziness, (-) fatigue, (-) change in appetite Skin: (-) rash, (-) lesion HEENT: (-) headache, (-) change in hearing, (-) change in vision, (-) nasal discharge, (-) sore throat Neck: (-) pain, (-) difficulty swallowing, (-) mass Heme: (-) bleeding disorder Resp: (-) cough, (-) shortness of breath, (-) dyspnea on exertion Cardio: (-) chest pain, (-) palpitations, (-) syncope GI: (-) abdominal pain, (-) nausea, (-) vomiting, (-) diarrhea, (-) constipation, (-) melena, (-) hematochezia, (-) hematemesis : (-) dysuria, (-) hematuria, (-) increased frequency, (-) difficulty urinating, (-) difficulty initiating Endo: (-) heat intolerance, (-) diabetes, (-) cold intolerance, (-) polyuria, (-) polydipsia, (-) renal insufficiency, (-) thyroid disease Neuro: See HPI Back: (-) pain, (-)spasms MALVIN: (-) muscle pain, (-) joint pain, (-) claudication Psych: (-) anxiety, (-) depression, (-) psychiatric disorder PHYSICAL EXAM BP: (126-158)/(71-84) Temp: [36.6 ?C (97.8 ?F)-37 ?C (98.6 ?F)] Temp source: Oral (12/15 1313) Pulse: [70-74] Resp: [16-20] SpO2: [97 %] Height: -- Weight: [86.2 kg (190 lb)] BMI (calculated): [0] Vitals: 12/16/23 1314 12/16/23 1430 12/16/23 1609 BP: 126/84 (!) 158/75 131/71 BP Location: Right arm Patient Position: Sitting Pulse: 74 70 73 Resp: 16 20 17 Temp: 37 ?C (98.6 ?F) 36.6 ?C (97.8 ?F) TempSrc: Oral SpO2: 97% 97% 97% Weight: 86.2 kg (190 lb) No intake or output data in the 24 hours ending 12/16/231814 General: Well appearing. Dressed in hospital gowns. No apparent distress. Mental Status: Alert and oriented x4 (person, place, time, and situation). Consciousness, attention, concentration: normal, Stays focused and on task while being questioned. Language: intact to comprehension, fluency, repetition and naming. Fund of knowledge: is congruent with level of education. Remote and recent memory: normal. Cranial Nerves: I. Not tested. II. Symmetric, equally reactive pupils. Field of vision intact to confrontation in either of the four quadrants. III. IV., . Extraocular movements intact without nystagmus . V. Normal sensation bilaterally in V1-3 distributions. VII. No facial droop noted. VIII. Hearing intact to finger rubbing in either ear. IX., X. Palatal elevation normal symmetrically. XI. Normal strength of sternocleidomastoid and trapezius muscles bilaterally. XII. Tongue in midline. Motor system: Tone: normal Bulk: normal Strength Right Left Deltoid 5 5 Biceps 5 5 Triceps 5 5 Wrist extensors 5 5 Interossei 5 5 Hip flexors 5 5 Knee flexors (hamstring) 5 5 Knee extensors (quadriceps) 5 5 Ankle dorsiflexors 5 5 Ankle plantar flexors 5 5 Deep Tendon Reflexes Right Left Biceps 2+ 2+ Triceps 2+ 2+ Brachioradialis 2+ 2+ Patella 2+ 2+ Achilles 1+ 1+ Pathologic reflexes and signs: Ankle clonus: absent Hollingsworth's sign: negative bilaterally. Plantar response: mute bilaterally Cerebellum: Negative: tremors, nystagmus, rapid alternating movements, pxqqip-ml-fufy testing, qysw-sx-biin testing Sensory system: Light touch: Intact Pinprick/temperature: Intact Joint position/vibration: Intact Pattern of sensory impairment: Intact Gait: Deferred. General examination: HEENT: moist mucus membranes. Clear oropharynx. Lungs: normal breath sounds. No abnormal sounds. Cardio: normal heart sounds. No added sounds. Extremities: no cyanosis, clubbing or edema. Neck: supple. No carotid bruit or JVD. Abdomen: normal contour. Soft, non-tender to palpation. Normoactive bowel sounds. LABS Relevant labs: HGB A1c 6.4, HGB 12.1, PLT 114, Na 137, K 4.1, Cr 0.95, GFR 91 STROKE LABS HGB A1C (%) Date Value 12/16/2023 6.4 (H) No results found for: "LDL" No results found for: "CHOL" No results found for: "TSH" Recent Labs 12/16/23 1324 TROPNI 0.004 RADIOLOGY MRI brain: Pending. CT head (12/16/2023): Impression: Subtle medium-size age-indeterminant hypodensity seen at the right insular cortex/ernandez radiata/centrum semiovale, concerning for an acute/subacute infarction. No acute hemorrhage seen. No significant mass effect seen. CTA head and neck (12/16/2023): Prelim impression: 1. Complete occlusion of the right M2 segment. 2. Near Complete occlusion of the right internal carotid artery with a soft atherosclerotic plaque. 3. Approximately 40% stenosis of the left internal carotid artery. 4. Significant stenosis of the intracranial segments of the bilateral internal carotid arteries, as described. ASSESSMENT AND PLAN Keyla Little is a 63 year old man with PMHX of HTN, HLD, DM-II, who was brought by EMS on 12/16/23 as stroke activation for acute dense left face/arm/leg weakness (LSN 11 AM 12/16/23). He initially had severe left face and arm > leg weakness and sensory loss and left harjinder-neglect with NIHSS of 9. This improved rapidly to NIHSS of [address] the CT scans were obtained and NIHSS of 0 when brought to the room. CT head already showed right parietal hypodensity, CTA head and neck showed right ICA near occlusion with soft plaque and right inferior M2 occlusion. CTP showed right parietal penumbra and core. Given concern that the soft plaque may dislodge, we will transfer the patient to the ICU for Q1H Neurochecks and permissive hypertension management. Will consider BP augmentation if needed. 1. NEON PUMPER Right MCA distribution stroke (rapidly improved) Severe right ICA stenosis/near occlusion Neurochecks Q1H Cardiac monitoring Permissive hypertension Continuous 125 ml/hr NS Loaded with aspirin and plavix Continue aspirin 81 and plavix 75 Avoid hyperthermia, pain and constipation Fall precautions 2. CVS HTN EKG :pending Troponin: 0.004 MAP goal >65 Permissive hypertensin management up to < 220 SBO 3. Pulmonary No active concerns Monitor 4. GI No active concerns Monitor 5. Renal No active concerns Na 137, K 4.1, GFR 91, Cr 0.95 Plan: Daily BMP 6. Infectious No active concerns Tmax: 37.0 Cultures: none ABx: none Monitor 7. Endocrine DM-II Insulin Sliding Scale IV access: PIV Stroud: None Infusions: Normal saline Nutrition: Type: regular diet Bowel regimen: senokot Last BM: Not recorded Intake/output: Not recorded - GI Prophylaxis: famotidine - DVT Prophylaxis: enoxaparin Case discussed with Josh Hinds MD, [facility] Faculty and will be staffed in the AM. Cristopher Huizar MD Neurology resident Associated attestation - Josh Hinds MD - 12/17/2023 8:49 AM CDT I discussed the plan of care with Dr. May and agree with his documented plan. # Acute R MCA ischemic stroke # Severe R ICA stenosis requiring close monitoring in [facility]. Josh Hinds MD Neurocritical Care Attending [facility] Department of Neurology [facility] 2023-12-16 14:58:15 STROKE SERVICE HISTORY AND PHYSICAL DATE OF SERVICE: 12/16/2023 18:38 CHIEF COMPLAINT: left sided weakness HISTORY OF PRESENT ILLNESS Keyla Little is a 63 year old man with PMHX of HTN, HLD, DM-II, who was brought by EMS on 12/16/23 as stroke activation for acute dense left face/arm/leg weakness (LSN 11 AM 12/16/23). History taken from the patient and his . She reports they went to the vet to treat their dog. He came back at 11 AM and was normal at that time. He then started to complain of tiredness and fell at 12 PM (witnessed by ). She then called EMS. On arrival, he was able to provide history to staff standing on right but not left side. His reports he might have had a stroke in Oct 2023. He had sudden severely slurred speech (and no other neurologic deficits) and went to an ER. His symptoms improved within 30-60 minutes and no scans were done. Denied having any residual symptoms. Antiplatelets: No Anticoagulations: No Tobacco abuse: Yes former 1 pack per day for 30 years Alcohol abuse: Yes Drug abuse: No Previous stroke: Yes as above Body mass index is 24.39 kg/m?. STROKE DOCUMENTATION Stroke Activation - Date: 12/16/23 Stroke Activation - Time: 1303 Physician arrival at bedside - Date: 12/16/23 Physician arrival at bedside - Time: 1306 CT-Head without contrast read by Neurology: 1315 Last seen normal: Last known well - Date: 12/16/23 Last known well - Time: 1100 Wake up stroke: No NIH STROKE SCALE NIHSS TOTAL: 0 NIHSS Interval: Admission LOC: 0 Alert: Keenly Responsive LOC QUESTIONS: 0 Answers Both Questions Correctly LOC COMMANDS: 0 Performs Both Tasks Correctly BEST GAZE: 0 Normal VISUAL: 0 No Visual Loss FACIAL PALSY: 0 Normal MOTOR ARM-LEFT: 0 No Drift MOTOR ARM-RIGHT: 0 No Drift MOTOR LEG-LEFT: 0 No Drift MOTOR LEG-RIGHT: 0 No Drift LIMB ATAXIA: 0 Absent SENSORY: 0 Normal BEST LANGUAGE: 0 No Aphasia DYSARTHRIA: 0 Normal EXTINCTION AND INATTENTION (FORMERLY NEGLECT): 0 No Abnormalty Dysphagia Screen: Dysphagia Screen Step 1 (Exclusion Criteria): Pass (none of the above) Dysphagia Screen Step 2 (Management of secretions): Pass (none of the above) Dysphagia Screen Step 3 (3-ounce water swallow challenge): Pass (none of the above) IV Tenecteplase: Was IV thrombolytic therapy given?: No Reason no IV thrombolytic therapy initiated: NIH equals 0 If IV Thrombolytic therapy was indicated and given as a standard of care was the patient/family informed of benefits of treatment and risk such as hemorrhage and/or angioedema?: (not recorded) Was there a delay in door to IV thrombolytic over 30 minutes?: (not recorded) Reason (s): (not recorded) ICH/SAH ICH/SAH: No Endovascular Intervention: Was Endovascular Intervention Performed?: No Reason patient is not a candidate for endovascular intervention: NIH less than or equal to 6 PRE- ADMISSION MODIFIED SIRI SCORE 0 - No symptoms at all PAST MEDICAL HISTORY No past medical history on file. PAST SURGICAL HISTORY Past Surgical History: Procedure Laterality Date RADIUS AND ULNA ORIF Right 02/25/2016 Surgeon: Ericka Bergman; Location: [facility] [place] SPLINT APPLICATION Right 02/25/2016 Surgeon: Ericka Bergman; Location: [facility] ULNA ORIF Right 10/10/2016 Surgeon: Cuba Salgado MD; Location: [facility] [place] ULNAR NON-UNION TAKEDOWN Right 10/10/2016 Surgeon: Cuba Salgado MD; Location: [facility] FAMILY HISTORY No family history on file. SOCIAL HISTORY Social History Socioeconomic History Marital status: Single Tobacco Use Smoking status: Former Smokeless tobacco: Never Substance and Sexual Activity Alcohol use: Yes Reviewed patient's family, surgical and social hx. HOME MEDICATIONS Medications Prior to Admission Medication Sig Dispense Refill Last Dose atorvastatin (LIPITOR) 40 mg tablet Take 1 tablet by mouth at bedtime. lisinopriL 10 mg tablet Take 1 tablet by mouth in the morning. metFORMIN 500 mg/5 mL SSRR Take 500 mg by mouth in the morning. HOSPITAL MEDICATIONS Current Facility-Administered Medications Medication Dose Route Frequency Last Rate Last Admin [START ON 12/17/2023] aspirin chewable tablet 81 mg 81 mg Oral DAILY [START ON 12/17/2023] atorvastatin (LIPITOR) tablet 40 mg 40 mg Oral QHS [START ON 12/17/2023] clopidogreL (PLAVIX) 75 mg tablet 75 mg 75 mg Oral DAILY dextrose 50 % in water (D50W) injection 25 mL 25 mL Slow IV Push PRN [START ON 12/17/2023] enoxaparin (LOVENOX) injection 40 mg 40 mg Subcutaneous DAILY famotidine (PEPCID AC) tablet 20 mg 20 mg Oral BID glucagon (GLUCAGEN DIAGNOSTIC KIT) injection 1 mg 1 mg Intramuscular PRN labetaloL (NORMODYNE) injection 10 mg 10 mg Slow IV Push [id number] NaCl 0.9% (NS) 1000 mL + KCL 20 mEq IV Infusion CONTINUOUS NaCl 0.9% (NS) injection 5 mL 5 mL Slow IV Push PRN - SEE INSTRUCTIONS NaCl 0.9% (NS) IV infusion 1,000 mL 1,000 mL IV Infusion CONTINUOUS Sliding Scale Insulin - Lispro (HumaLOG) Subcutaneous TID MEALS+HS ALLERGY No Known Allergies REVIEW OF SYSTEMS General: (-) fever, (-) chills, (-) weight change, (-) dizziness, (-) fatigue, (-) change in appetite Skin: (-) rash, (-) lesion HEENT: (-) headache, (-) change in hearing, (-) change in vision, (-) nasal discharge, (-) sore throat Neck: (-) pain, (-) difficulty swallowing, (-) mass Heme: (-) bleeding disorder Resp: (-) cough, (-) shortness of breath, (-) dyspnea on exertion Cardio: (-) chest pain, (-) palpitations, (-) syncope GI: (-) abdominal pain, (-) nausea, (-) vomiting, (-) diarrhea, (-) constipation, (-) melena, (-) hematochezia, (-) hematemesis : (-) dysuria, (-) hematuria, (-) increased frequency, (-) difficulty urinating, (-) difficulty initiating Endo: (-) heat intolerance, (-) diabetes, (-) cold intolerance, (-) polyuria, (-) polydipsia, (-) renal insufficiency, (-) thyroid disease Neuro: (-) numbness, (-) tingling, (-) weakness Back: (-) pain, (-) spasms MALVIN: (-) muscle pain, (-) joint pain, (-) claudication Psych: (-) anxiety, (-) depression, (-) psychiatric disorder PHYSICAL EXAM Vitals: 12/16/23 1314 12/16/23 1430 12/16/23 1609 BP: 126/84 (!) 158/75 131/71 BP Location: Right arm Patient Position: Sitting Pulse: 74 70 73 Resp: 16 20 17 Temp: 37 ?C (98.6 ?F) 36.6 ?C (97.8 ?F) TempSrc: Oral SpO2: 97% 97% 97% Weight: 86.2 kg (190 lb) General: Well appearing. Dressed in hospital gowns. No apparent distress. Mental Status: Alert and oriented x4 (person, place, time, and situation). Consciousness, attention, concentration: normal, Stays focused and on task while being questioned. Language: intact to comprehension, fluency, repetition and naming. Fund of knowledge: is congruent with level of education. Remote and recent memory: normal. Cranial Nerves: I. Not tested. II. Symmetric, equally reactive pupils. Field of vision intact to confrontation in either of the four quadrants. III. IV., . Extraocular movements intact without nystagmus . V. Normal sensation bilaterally in V1-3 distributions. VII. No facial droop noted. VIII. Hearing intact to finger rubbing in either ear. IX., X. Palatal elevation normal symmetrically. XI. Normal strength of sternocleidomastoid and trapezius muscles bilaterally. XII. Tongue in midline. Motor system: Tone: normal Bulk: normal Strength Right Left Deltoid 5 5 Biceps 5 5 Triceps 5 5 Wrist extensors 5 5 Interossei 5 5 Hip flexors 5 5 Knee flexors (hamstring) 5 5 Knee extensors (quadriceps) 5 5 Ankle dorsiflexors 5 5 Ankle plantar flexors 5 5 Deep Tendon Reflexes Right Left Biceps 2+ 2+ Triceps 2+ 2+ Brachioradialis 2+ 2+ Patella 2+ 2+ Achilles 1+ 1+ Pathologic reflexes and signs: Ankle clonus: absent Hollingsworth's sign: negative bilaterally. Plantar response: mute bilaterally Cerebellum: Negative: tremors, nystagmus, rapid alternating movements, uuucmx-tm-iyvy testing, xuqo-ci-aclh testing Sensory system: Light touch: Intact Pinprick/temperature: Intact Joint position/vibration: Intact Pattern of sensory impairment: Intact Gait: Deferred. General examination: HEENT: moist mucus membranes. Clear oropharynx. Lungs: normal breath sounds. No abnormal sounds. Cardio: normal heart sounds. No added sounds. Extremities: no cyanosis, clubbing or edema. Neck: supple. No carotid bruit or JVD. Abdomen: normal contour. Soft, non-tender to palpation. Normoactive bowel sounds. LABS, RADIOLOGY, ELECTROPHYSIOLOGY Relevant labs: Na 137, K 4.1, GFR 91, Cr 0.95 MRI brain: Pending. CT head (12/16/2023): Impression: Subtle medium-size age-indeterminant hypodensity seen at the right insular cortex/ernandez radiata/centrum semiovale, concerning for an acute/subacute infarction. No acute hemorrhage seen. No significant mass effect seen. CTA head and neck (12/16/2023): Prelim impression: 1. Complete occlusion of the right M2 segment. 2. Near Complete occlusion of the right internal carotid artery with a soft atherosclerotic plaque. 3. Approximately 40% stenosis of the left internal carotid artery. 4. Significant stenosis of the intracranial segments of the bilateral internal carotid arteries, as described. ASSESSMENT AND PLAN Keyla Little is a 63 year old man with PMHX of HTN, HLD, DM-II, who was brought by EMS on 12/16/23 as stroke activation for acute dense left face/arm/leg weakness (LSN 11 AM 12/16/23). He initially had severe left face and arm > leg weakness and sensory loss and left harjinder-neglect with NIHSS of 9. This improved rapidly to NIHSS of 1 by the time the CT scans were obtained and NIHSS of 0 when brought to the room. CT head already showed right parietal hypodensity, CTA head and neck showed right ICA near occlusion with soft plaque and right inferior M2 occlusion. CTP showed right parietal penumbra and core. He likely had a [id number] embolic stroke to right M2 that was resolved. Possibly related to dehydration after going out. We will load with aspirin 325, plavix 300, and start lipitor 40. We will admit him for stroke workup. Right MCA distribution stroke (rapidly improved) Severe right ICA stenosis/near occlusion - Admission under Neurology service - Q4H Neurochecks - Aspirin 325 mg once now and Aspirin 81 mg daily starting tomorrow - Plavix 300 mg once now and Plavix 75 mg daily starting tomorrow - Lipitor 40 mg nightly and adjust according to LDL - Permissive HTN - Obtain CBC, BMP, fasting Lipid panel, HgA1c, TSH, PT, PTT, Troponin x 1, EKG - Telemetry monitoring - Sliding scale of insulin - Avoid hyperthermia, pain and constipation - Fall precautions - Consult PT/OT/ Speech pathology/Primary swallowing screen - Lead Caster Helper on stroke education, smoking cessation, healthy diet, physical activity, weight loss Imaging: - MRI brain without contrast - TTE with bubble study - GI Prophylaxis: famotidine - DVT Prophylaxis: enoxaparin - Code status: full code Case seen and discussed with Elie Haines MD, Vascular Neurology Faculty Cristopher Huizar MD Neurology resident [facility] signed by Josh Haines MD at 12/17/2023 3:30 PM CDT Associated attestation - Josh Haines MD - 12/17/2023 3:30 PM CDT Vascular neurology attending note I personally examined the patient on 12/16/[address] Huizar's note as written with some edits . I actively participated in the decision-making process. Please see the resident's note for additional details. 63 year old man with PMHX of HTN, HLD, DM-II, who was brought by EMS on 12/16/23 as stroke activation for acute dense left face/arm/leg weakness (LSN 11 AM 12/16/23).He initially had severe left face and arm > leg weakness and sensory loss and left harjinder-neglect with NIHSS of 9. This improved rapidly to NIHSS of 1 by the time the CT scans were obtained and NIHSS of 0 when brought to the room.CT head already showed right parietal hypodensity, CTA head and neck showed right ICA near occlusion with soft plaque and right inferior M2 occlusion. CTP showed right parietal penumbra and core. 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 Admit to neuro ICU MRI brain Permissive hypertension Will consider anticoagulation after Mri brain Josh Haines MD [facility] - Health Procedure Notes Date/Time Note Provider Source 2024-02-13 14:02:28 VASCULAR AND INTERVENTIONAL RADIOLOGY PROCEDURE NOTE Pre-procedure diagnosis: Variceal Bleeding, Cirrhosis Post-procedure diagnosis: Variceal Bleeding, Cirrhosis Procedure: TIPS Placement Embolization of Gastroesophageal Varices Paracentesis Anesthesia: GA Findings: TIPS Placement Access site: right internal jugular vein Technically successful creation of TIPS between the middle hepatic vein and left portal vein with placement of 8-2 cm Viatorr stent. Pre-TIPS portosystemic gradient was 19 mmHg (underestimated due to large varices). Post-TIPS portosystemic gradient decreased to 11 mmHg. Embolization of Gastroesophageal Varices Splenic and portal venograms demonstrated large gastroesophageal varices, with main inflow from the left gastric vein. A short gastric vein was also noted supplying gastric varices. Technically successful antegrade (trans-TIPS) embolization of gastroesophageal varices supplied by short gastric vein and left gastric vein. Paracentesis US demonstrated a small volume ascites in the right upper quadrant. US-guided paracentesis of 2 L serous fluid. Complications: None Condition: Stable EBL: < 50 mL. PLAN: Transfer to ICU for hemodynamic monitoring. Continue monitoring H&H and transfuse if < 7. Will obtain TIPS ultrasound on outpatient basis (IR will order). Full dictated note to follow in PACS. RAD-VASCULAR & INTERVENTIONAL RADIOLOGY STAFF [facility] - [facility] Notes Date/Time Note Provider Source 2024-05-23 15:59:55 Chief Complaint Patient presents with Nail Problem Pt had toe nail injury x 5 days ago had a fall from sofa and nail bent [phone] (home) Charlotte Solano CMA II [facility] 2024-05-06 08:58:00 [id number] [place] [address] PATIENT NAME: KEYLA LITTLE ADMIT DATE: 04/03/24 ACCOUNT NO: [id number] ROOM NO: [id number] AGE: 63 REPORT TYPE: 360 - QUERY RESPONSE DOCUMENT SEX: M ADMITTING PHYSICIAN:Vlad Couch MD ATTENDING PHYSICIAN:Vlad oCuch MD Provider Query QUERY TEXT: POA Indicator 360MD Query related questions should be directed to: [facility] Coding Query Helpline Please indicate if the diagnosis of [ subacute ischemia CVA right frontal lobe] was present on admission? The patient's Clinical Indicators include: subacute ischemia CVA right frontal lobe; Internal Medicine Prog. Note 04/07/2024 (1) Options provided: -- Yes -- No -- W -- Other - I will add my own diagnosis -- Dismiss - Not applicable / Not valid -- Dismiss - Clinically unable to determine / Unknown -- Assign to another provider QUERY RESPONSE: Yes- The condition was present at the time of inpatient admission. Query created by: Heather Macario on 05/05/2024 5:17 AM at 0858 PATIENT NAME: KEYLA LITTLE [facility] 2024-04-30 13:30:00 [facility] Gastroenterology Progress Note REPORT#:[id number] REPORT STATUS: Signed REPORT INITIALIZATION DATE:04/30/24 TIME: 1329 PATIENT: KEYLA LITTLE UNIT #: [id number] ROOM/BED: [place] [address] : [birth year] AGE: 63 SEX: M ATTEND: Vlad Couch MD ADM AUTHOR: Amalia Hoskins COAL TRAM DRIVER REPT SERVICE DT/TIME: 04/30/24 1330 * ALL edits or amendments must be made on the electronic/computer document * Amalia Hoskins 04/30/24 1330: Subjective Chief complaint: High ammonia HPI: 63 year old man with hx of cirrhosis who was hospitalized with encephalopathy. Upon the encounter pt mental status seems to have improved. Pt reports knowing about cirrhosis for a while. Not being managed. No alcohol intake. Etiology of cirrhosis in not clear. 04/06: still confused. RUQ U/S pending 04/07: MRI showed subacute infarct in the brain. Right upper quad ultrasound showed evidence of TIPS. No liver masses. 04/08: moving bowels. Still confused. Ammonia trending up 04/09: HE grade 2, Ammonia 135, cont lactulose and xifaxin 04/10: ammonia coming down mental status improving 04/11: Mental status better. 04/12: No change. Mental status improving. He is having 3-4 bowel movements a day on lactulose 04/13: No complaints. Oriented 04/14: Mental status improved. Getting neuro work-up 04/15: No new events. 04/25: Mental status is not improving. Patient is agitated. He is on lactulose and rifaximin. 04/26: KUB showed no obstruction. given 1.5 liter of golytely without a BM. 04/27: had 2 BM last evening. Mental status improving. Still has 1/2 golytely to drink 04/28: Was agitated last night. Given seroquel and melatonin. Now sleepy. One BM yesterday. Nothing today. 04/29: Main doing better. Not agitated anymore. Continue with current lactulose and rifaximin regimen. As needed GoLytely if needed 04/30-No n/v/abd pain. Having 3-4 BMs per day. No agitation Review of Systems Constitutional: Denies: chills, fever. Skin: Denies: abrasion, bruising. Allergy/Immun: Denies: allergic reaction, anaphylaxis. Eyes: Denies: redness, discharge. ENT: Denies: mouth pain, sinus problem. GI: Denies: abdominal pain, vomiting. Heme: Denies: adenopathy, petechiae. Endocrine: Denies: weight gain, weight loss. Psych: Denies: agitation, anxiety. Objective General VS/I O: Last Documented: Result Date Time Pulse Ox 100 04/30 1124 B/P 164/73 04/30 1124 B/P Mean 103.6 04/30 1124 Temp 36.8 04/30 1124 Pulse 83 04/30 1124 Resp 19 04/30 1124 O2 Delivery Room air 04/28 2035 O2 Flow Rate 2 04/19 1730 24 hour I O ending at 0700: 04/30 0700 04/29 1900 Intake Total 600 Output Total 600 Balance 0 Intake, Oral 600 Number 1 Bowel Movements Output, Urine 600 PATIENT WEIGHT: Weight (lb): 179 Weight (oz): 0 Weight (kg): 81.193 Medications: Active Meds + DC'd Last 24 Hrs Lactulose (LACTULOSE) 200 GM ONCE ONE RECTAL Sodium Chloride (SODIUM CHLORIDE IRRIG BAG) 700 ML Lactulose (LACTULOSE) 30 GM Q6H PO Rifaximin (XIFaxan) 550 MG BID PO Midodrine (PROAMATINE) 5 MG 0900,1300,1700 PO Docusate Sodium (COLACE) 100 MG BID PO Bisacodyl (DULCOLAX) 10 MG DAILY PRN PRN RECTAL Magnesium Hydroxide (MILK OF MAGNESIA) 30 ML Q6H PRN PRN PO Aspirin (ASPIRIN) 81 MG DAILY PO Melatonin (Melatonin) 3 MG BEDTIME PRN PO Insulin Glargine (Semglee) 15 UNIT BID SUBQ Folic Acid (FOLIC ACID) 1 MG DAILY PO Metformin HCl (GLUCOPHAGE) 500 MG C BK PO Atorvastatin Calcium (LIPITOR) 20 MG BEDTIME PO Pantoprazole (PROTONIX) 40 MG BID PO Dextrose/Water (DEXTROSE 10% IN WATER) 125 ML ASDIR PRN IV (CKD) Dextrose/Water (DEXTROSE 10% IN WATER) 250 ML ASDIR PRN IV (CKD) Glucagon (GLUCAGON) 1 MG ASDIR PRN IM Hydralazine HCl (APRESOLINE) 10 MG Q6H PRN PRN IV Insulin Human Lispro (HUMALOG) 0 AC HS SUBQ Acetaminophen (TYLENOL) 650 MG Q4H PRN PRN PO Al Hydrox/Mg Hydrox/Simethicone (MYLANTA) 30 ML Q4H PRN PRN PO Ondansetron HCl (ZOFRAN) 4 MG Q4H PRN PRN IV Physical Exam General appearance: alert, awake, oriented HEENT: anicteric Cardiovascular: normal heart sounds Respiratory: clear to auscultation Abdomen: non-tender Extremities: no edema Neuro/NEON PUMPER: alert, oriented X 3 Skin: dry, normal temperature Results Findings/Data: Laboratory Tests 04/30 04/30 04/29 04/29 1128 0704 1915 1605 Chemistry POC Glucose (70 - 110 MG/DL) 170 H 192 H 149 H 142 H Diagnosis, Assessment Plan Problem List/A P: 1. Acute hepatic encephalopathy 2. Cirrhosis Free Text A P: Right upper quadrant ultrasound showed evidence of cirrhosis without liver mass. Presence of TIPS. No ascites. Patient now has subacute infarcts. Neurology on board. Ammonia trending up and still confused however better. C/W lactulose and Rifaximin. Would avoid trending Ammonia. Goal of 3 bowel movements a day. Avoid benzos and opioids Look for infection contributing to his worsening mental status. Given history of patent TIPS unlikely to have ascites or SBP. HCC was ruled out earlier during this admission. Correct any electrolyte imbalance KUB reviewed. Started on golytely x4 liters. Will increase lactulose dose to 30 gQ6 hours C/W rifaximin Consultants: cardiovascular surgery, hospitalist Kaitlin Mcdermott 05/24/24 0945: Diagnosis, Assessment Plan Free Text A P: The patient's chart is reviewed, as well as exam and interview with the nurse practitioner, I agree with the plan as above at 1331 at 0947 RPT #:[id number] END OF REPORT [facility] 2024-04-30 09:55:00 [facility]) Internal Medicine Prog. Note REPORT#:[id number] REPORT STATUS: Signed REPORT INITIALIZATION DATE:04/30/24 TIME: 954 PATIENT: KEYLA LITTLE UNIT #: [id number] ROOM/BED: [place] [address] : 64 AGE: 63 SEX: M ATTEND: Vlad Couch MD ADM AUTHOR: Vlad Couch MD REPT SERVICE DT/TIME: 04/30/24 0955 * ALL edits or amendments must be made on the electronic/computer document * Subjective Free Text Subj Notes Free Text Subj Notes: at baseline eating without assistance alert and orientated Review of Systems All systems rev neg: except as marked Objective Physical Exam Head/Eyes: atraumatic, EOMI, normocephalic, PERRLA ENT: normal pharynx Neck: non-tender, no JVD Cardiovascular: normal heart sounds, regular rate rhythm, no murmur Respiratory: aerating well, clear to auscultation, symmetric expansion, no distress Abdomen: non-tender, normal bowel sounds, soft, no distention Extremities: Extremities: no edema Musculoskeletal: normal inspection Neuro/NEON PUMPER: alert, oriented x 3 Diagnosis, Assessment Plan Problem List/A P: 1. Hyperammonemic encephalopathy 2. AMS (altered mental status) 3. Uncontrolled diabetes mellitus 4. Cirrhosis 5. RIGHT ICA STENOSIS 6. Acute hepatic encephalopathy Free Text DxA P Notes Free text DxA P notes: medications reviewed, continue same lactulose as ordered cirrhosis mgmt d/c sitter, no need at this time patient ambulating without assistance household distances medically stable for d/c d/w floor case mgmr yesterday confusion about needs for SNF or rehab - patient currently has no medical or therapy needs at this time. recommend case mgmt education on appropriate placement for patients. at 1315 RPT #:[id number] END OF REPORT [facility] 2024-04-29 18:41:00 [facility] ([facility]) Gastroenterology Progress Note REPORT#:[id number] REPORT STATUS: Signed REPORT INITIALIZATION DATE:04/29/24 TIME: 1840 PATIENT: KEYLA LITTLE UNIT #: [id number] ROOM/BED: [place] [address] : 64 AGE: 63 SEX: M ATTEND: Vlad Couch MD ADM AUTHOR: Dolly Collier MD REPT SERVICE DT/TIME: 04/29/241840 * ALL edits or amendments must be made on the electronic/computer document * Subjective Chief complaint: High ammonia HPI: 63 year old man with hx of cirrhosis who was hospitalized with encephalopathy. Upon the encounter pt mental status seems to have improved. Pt reports knowing about cirrhosis for a while. Not being managed. No alcohol intake. Etiology of cirrhosis in not clear. 04/06: still confused. RUQ U/S pending 04/07: MRI showed subacute infarct in the brain. Right upper quad ultrasound showed evidence of TIPS. No liver masses. 04/08: moving bowels. Still confused. Ammonia trending up 04/09: HE grade 2, Ammonia 135, cont lactulose and xifaxin 04/10: ammonia coming down mental status improving 04/11: Mental status better. 04/12: No change. Mental status improving. He is having 3-4 bowel movements a day on lactulose 04/13: No complaints. Oriented 04/14: Mental status improved. Getting neuro work-up 04/15: No new events. 04/25: Mental status is not improving. Patient is agitated. He is on lactulose and rifaximin. 04/26: KUB showed no obstruction. given 1.5 liter of golytely without a BM. 04/27: had 2 BM last evening. Mental status improving. Still has 1/2 golytely to drink 04/28: Was agitated last night. Given seroquel and melatonin. Now sleepy. One BM yesterday. Nothing today. 04/29: Main doing better. Not agitated anymore. Continue with current lactulose and rifaximin regimen. As needed GoLytely if needed Objective Physical Exam HEENT: anicteric Cardiovascular: normal heart sounds Respiratory: clear to auscultation Abdomen: non-tender Extremities: no edema Diagnosis, Assessment Plan Problem List/A P: 1. Herpetic encephalitis 2. Cirrhosis Free Text A P: Right upper quadrant ultrasound showed evidence of cirrhosis without liver mass. Presence of TIPS. No ascites. Patient now has subacute infarcts. Neurology on board. Ammonia trending up and still confused however better. C/W lactulose and Rifaximin. Would avoid trending Ammonia. Goal of 3 bowel movements a day. Avoid benzos and opioids Look for infection contributing to his worsening mental status. Given history of patent TIPS unlikely to have ascites or SBP. HCC was ruled out earlier during this admission. Correct any electrolyte imbalance KUB reviewed. Started on golytely x4 liters. Will increase lactulose dose to 30 gQ6 hours C/W rifaximin Consultants: cardiovascular surgery, hospitalist at 1841 RPT #:[id number] END OF REPORT [facility] 2024-04-29 09:56:00 [facility] Internal Medicine Prog. Note REPORT#:[id number] REPORT STATUS: Signed REPORT INITIALIZATION DATE:04/29/24 TIME: 955 PATIENT: KEYLA LITTLE UNIT #: [id number] ROOM/BED: [place] [address] : 64 AGE: 63 SEX: M ATTEND: Vlad Couch MD ADM AUTHOR: Vlad Couch MD REPT SERVICE DT/TIME: 04/29/24 0956 * ALL edits or amendments must be made on the electronic/computer document * Subjective Free Text Subj Notes Free Text Subj Notes: overall stable patient at baseline mentation, answering questions appropriately no agitation Review of Systems All systems rev neg: except as marked Objective Physical Exam Head/Eyes: atraumatic, EOMI, normocephalic, PERRLA ENT: normal pharynx Neck: non-tender, no JVD Cardiovascular: normal heart sounds, regular rate rhythm, no murmur Respiratory: aerating well, clear to auscultation, symmetric expansion, no distress Abdomen: non-tender, normal bowel sounds, soft, no distention Extremities: Extremities: no edema Musculoskeletal: normal inspection Neuro/NEON PUMPER: alert, oriented x 3 Diagnosis, Assessment Plan Problem List/A P: 1. Hyperammonemic encephalopathy 2. AMS (altered mental status) 3. Uncontrolled diabetes mellitus 4. Cirrhosis 5. RIGHT ICA STENOSIS 6. Acute hepatic encephalopathy Free Text DxA P Notes Free text DxA P notes: medications reviewed, continue same lactulose as ordered cirrhosis mgmt d/c sitter, no need at this time patient ambulating without assistance household distances medically stable for discharge, not appropirate for rehab/SNF placement d/c home today with family support at [facility] RPT #:[id number] END OF REPORT [facility] 2024-04-28 08:21:00 [facility] ([facility] Gastroenterology Progress Note REPORT#:[id number] REPORT STATUS: Signed REPORT INITIALIZATION DATE:04/28/24 TIME: 820 PATIENT: KEYLA LITTLE UNIT #: [id number] ROOM/BED: [place] [address] : 64 AGE: 63 SEX: M ATTEND: Vlad Couch MD ADM AUTHOR: Dolly Collier MD REPT SERVICE DT/TIME: 04/28/24 0821 * ALL edits or amendments must be made on the electronic/computer document * Subjective Chief complaint: High ammonia HPI: 63 year old man with hx of cirrhosis who was hospitalized with encephalopathy. Upon the encounter pt mental status seems to have improved. Pt reports knowing about cirrhosis for a while. Not being managed. No alcohol intake. Etiology of cirrhosis in not clear. 04/06: still confused. RUQ U/S pending 04/07: MRI showed subacute infarct in the brain. Right upper quad ultrasound showed evidence of TIPS. No liver masses. 04/08: moving bowels. Still confused. Ammonia trending up 04/09: HE grade 2, Ammonia 135, cont lactulose and xifaxin 04/10: ammonia coming down mental status improving 04/11: Mental status better. 04/12: No change. Mental status improving. He is having 3-4 bowel movements a day on lactulose 04/13: No complaints. Oriented 04/14: Mental status improved. Getting neuro work-up 04/15: No new events. 04/25: Mental status is not improving. Patient is agitated. He is on lactulose and rifaximin. 04/26: KUB showed no obstruction. given 1.5 liter of golytely without a BM. 04/27: had 2 BM last evening. Mental status improving. Still has 1/2 golytely to drink 04/28: Was agitated last night. Given seroquel and melatonin. Now sleepy. One BM yesterday. Nothing today. Objective Physical Exam HEENT: anicteric Cardiovascular: normal heart sounds Respiratory: clear to auscultation Abdomen: non-tender Extremities: no edema Diagnosis, Assessment Plan Problem List/A P: 1. Herpetic encephalitis 2. Cirrhosis Free Text A P: Right upper quadrant ultrasound showed evidence of cirrhosis without liver mass. Presence of TIPS. No ascites. Patient now has subacute infarcts. Neurology on board. Ammonia trending up and still confused however better. C/W lactulose and Rifaximin. Would avoid trending Ammonia. Goal of 3 bowel movements a day. Avoid benzos and opioids Look for infection contributing to his worsening mental status. Given history of patent TIPS unlikely to have ascites or SBP. HCC was ruled out earlier during this admission. Correct any electrolyte imbalance KUB reviewed. Started on golytely x4 liters. Will increase lactulose dose to 30 gQ6 hours C/W rifaximin Consultants: cardiovascular surgery, hospitalist at 0822 RPT #:[id number] END OF REPORT [facility] 2024-04-28 07:41:00 [facility] Internal Medicine Prog. Note REPORT#:[id number] REPORT STATUS: Signed REPORT INITIALIZATION DATE:04/28/24 TIME: 740 PATIENT: KEYLA LITTLE UNIT #: [id number] ROOM/BED: [place] [address] : 62 AGE: 63 SEX: M ATTEND: Vlad Couch MD ADM AUTHOR: Vlad Couch MD REPT SERVICE DT/TIME: 04/28/24 0741 * ALL edits or amendments must be made on the electronic/computer document * Subjective Free Text Subj Notes Free Text Subj Notes: sedated per staff unable to be redirected last night and required extra seroquel Review of Systems All systems rev neg: except as marked Objective Physical Exam Head/Eyes: atraumatic, EOMI, normocephalic, PERRLA ENT: normal pharynx Neck: non-tender, no JVD Cardiovascular: normal heart sounds, regular rate rhythm, no murmur Respiratory: aerating well, clear to auscultation, symmetric expansion, no distress Abdomen: non-tender, normal bowel sounds, soft, no distention Extremities: Extremities: no edema Musculoskeletal: normal inspection Neuro/NEON PUMPER: alert, oriented x 3 Diagnosis, Assessment Plan Problem List/A P: 1. Hyperammonemic encephalopathy 2. AMS (altered mental status) 3. Uncontrolled diabetes mellitus 4. Cirrhosis 5. RIGHT ICA STENOSIS 6. Acute hepatic encephalopathy Free Text DxA P Notes Free text DxA P notes: medications reviewed, continue same lactulose as ordered cirrhosis mgmt d/c sitter, no need at this time patient ambulating without assistance household distances medically stable for discharge, case management has requested rehab eval, plan for d/c to rehab vs home with family support d/c seroquel at 1322 RPT #:[id number] END OF REPORT [facility] 2024-04-27 10:00:00 [facility]) Vascular Surgery Progress Note REPORT#:[id number] REPORT STATUS: Signed REPORT INITIALIZATION DATE:04/27/24 TIME: 1000 PATIENT: KEYLA LITTLE UNIT #: [id number] ROOM/BED: [place] [address] : 62 AGE: 63 SEX: M ATTEND: Vlad Couch MD ADM AUTHOR: Mukesh Martin Jr, DO REPT SERVICE DT/TIME: 04/27/24 1000 * ALL edits or amendments must be made on the electronic/computer document * Subjective Chief complaint: Confused HPI No acute events overnight AF, VSS Paitent asleep comfortably Confused seems to wax and wane, today seems improved Does not report any pain Objective General VS/I O: Last Documented: Result Date Time B/P 120/51 04/27 729 B/P Mean 74.1 04/27 729 Pulse 64 04/27 729 Pulse Ox 99 04/27 723 Temp 98.2 04/27 723 Resp 18 04/27 723 O2 Delivery Room air 04/26 1912 O2 Flow Rate 2 04/19 1730 24 hour I O ending at 0700: 04/27 0700 04/26 1900 Intake Total 800 450 Output Total Balance 800 450 Intake, Oral 800 450 Number 1 Bowel Movements PATIENT WEIGHT: Weight (lb): 179 Weight (oz): 0 Weight (kg): 81.193 General appearance: confused, alert, awake Wound/Incision: Location: right neck incision intact Extremities: moves all Pulse assess: Vascular pulse assess: Palpated: R radial, L radial, R femoral, L femoral. Neuro/NEON PUMPER: disoriented, alert, CNII-XII intact Diagnosis, Assessment Plan Problem List/A P: 1. AMS (altered mental status) 2. RIGHT ICA STENOSIS 3. Cerebral infarction due to stenosis of right carotid artery 4. Acute hepatic encephalopathy Free Text A P: Patient seen and examined, labs and imaging reviewed POD 8 s/p R CEA, incision intact and healing well Patient doing well. Neuro intact other than confusion Okay to dc from a vascular surgery standpoint Patient should follow up in 2 weeks after discharge Clinic information provided to patient and significant other Rest of care per primary team and consultants Thank you for allowing me to be part of this patient's care Consultants: cardiovascular surgery, hospitalist at 1005 RPT #:[id number] END OF REPORT [facility] 2024-04-27 08:14:00 [facility] ([facility]) Gastroenterology Progress Note REPORT#:[id number] REPORT STATUS: Signed REPORT INITIALIZATION DATE:04/27/24 TIME: 813 PATIENT: KEYLA LITTLE UNIT #: [id number] ROOM/BED: [place] [address] : 64 AGE: 63 SEX: M ATTEND: Vlad Couch MD ADM AUTHOR: Dolly Collier MD REPT SERVICE DT/TIME: 04/27/24813 * ALL edits or amendments must be made on the electronic/computer document * Subjective Chief complaint: High ammonia HPI: 63 year old man with hx of cirrhosis who was hospitalized with encephalopathy. Upon the encounter pt mental status seems to have improved. Pt reports knowing about cirrhosis for a while. Not being managed. No alcohol intake. Etiology of cirrhosis in not clear. 04/06: still confused. RUQ U/S pending 04/07: MRI showed subacute infarct in the brain. Right upper quad ultrasound showed evidence of TIPS. No liver masses. 04/08: moving bowels. Still confused. Ammonia trending up 04/09: HE grade 2, Ammonia 135, cont lactulose and xifaxin 04/10: ammonia coming down mental status improving 04/11: Mental status better. 04/12: No change. Mental status improving. He is having 3-4 bowel movements a day on lactulose 04/13: No complaints. Oriented 04/14: Mental status improved. Getting neuro work-up 04/15: No new events. 04/25: Mental status is not improving. Patient is agitated. He is on lactulose and rifaximin. 04/26: KUB showed no obstruction. given 1.5 liter of golytely without a BM. 04/27: had 2 BM last evening. Mental status improving. Still has 1/2 golytely to drink Objective Physical Exam HEENT: anicteric Cardiovascular: normal heart sounds Respiratory: clear to auscultation Abdomen: non-tender Extremities: no edema Diagnosis, Assessment Plan Problem List/A P: 1. Herpetic encephalitis 2. Cirrhosis Free Text A P: Right upper quadrant ultrasound showed evidence of cirrhosis without liver mass. Presence of TIPS. No ascites. Patient now has subacute infarcts. Neurology on board. Ammonia trending up and still confused however better. C/W lactulose and Rifaximin. Would avoid trending Ammonia. Goal of 3 bowel movements a day. Avoid benzos and opioids Look for infection contributing to his worsening mental status. Given history of patent TIPS unlikely to have ascites or SBP. HCC was ruled out earlier during this admission. Correct any electrolyte imbalance KUB reviewed. Started on golytely. Will assess response. Asked staff to keep pt upright to prevent aspiration. If pt develop nausea to stop golytely Consultants: cardiovascular surgery, hospitalist at 0815 RPT #:[id number] END OF REPORT [facility] 2024-04-27 07:53:00 [facility] Internal Medicine Prog. Note REPORT#:[id number] REPORT STATUS: Signed REPORT INITIALIZATION DATE:04/27/24 TIME: 752 PATIENT: EKYLA LITTLE UNIT #: [id number] ROOM/BED: [place] [address] : 62 AGE: 63 SEX: M ATTEND: Vlad Couch MD ADM AUTHOR: Vlad Couch MD REPT SERVICE DT/TIME: 04/27/24 0753 * ALL edits or amendments must be made on the electronic/computer document * Subjective Free Text Subj Notes Free Text Subj Notes: overall stable mentation at baseline Review of Systems All systems rev neg: except as marked Objective Physical Exam Head/Eyes: atraumatic, EOMI, normocephalic, PERRLA ENT: normal pharynx Neck: non-tender, no JVD Cardiovascular: normal heart sounds, regular rate rhythm, no murmur Respiratory: aerating well, clear to auscultation, symmetric expansion, no distress Abdomen: non-tender, normal bowel sounds, soft, no distention Extremities: Extremities: no edema Musculoskeletal: normal inspection Neuro/NEON PUMPER: alert, oriented x 3 Diagnosis, Assessment Plan Problem List/A P: 1. Hyperammonemic encephalopathy 2. AMS (altered mental status) 3. Uncontrolled diabetes mellitus 4. Cirrhosis 5. RIGHT ICA STENOSIS 6. Acute hepatic encephalopathy Free Text DxA P Notes Free text DxA P notes: medications reviewed, continue same lactulose as ordered cirrhosis mgmt d/c sitter, no need at this time patient ambulating without assistance household distances medically stable for discharge, case management has requested rehab eval, plan for d/c to rehab vs home with family support at 1644 RPT #:[id number] END OF REPORT [facility] 2024-04-27 06:19:00 [facility] ([facility] Hospitalist Progress Note REPORT#:[id number] REPORT STATUS: Signed REPORT INITIALIZATION DATE:04/27/24 TIME: 618 PATIENT: KEYLA LITTLE UNIT #: [id number] ROOM/BED: [place] [address] : 64 AGE: 63 SEX: M ATTEND: Vlad Couch MD ADM AUTHOR: Zuly Azul MD REPT SERVICE DT/TIME: 04/26/24618 * ALL edits or amendments must be made on the electronic/computer document * Subjective Chief complaint: more awake Breathing is stable. Not in distress. BP and HR stable. Free Text Subj Notes Free Text Subj Notes: 04/26 Patient became more confused overnight Patient wakes up on calling name. Appears awake alert AO x 2. Patient has no bowel movement in last 24-hour Review of Systems All systems rev neg: except as noted Objective General VS/I O: Vital Signs: Date Time Temp Pulse Resp B/P B/P Pulse O2 O2 Flow FiO2 Mean Ox Delivery Rate 04/26 1912 98.4 71 18 137/55 82.2 95 Room air 04/26 1510 97.7 67 17 118/62 80.7 99 04/26 1133 97.5 65 18 137/68 91.3 96 04/26 0710 97.5 64 15 123/63 83.1 99 24 hour I O ending at 0700: 04/27 0700 04/26 1900 Intake Total 800 450 Output Total Balance 800 450 Intake, Oral 800 450 Number 1 Bowel Movements PATIENT WEIGHT: Weight (lb): 179 Weight (oz): 0 Weight (kg): 81.193 Physical Exam General appearance: chronically ill appearing, confused, awake Head/Eyes: atraumatic, normocephalic, PERRLA ENT: moist mucosal membranes, normal dentition Cardiovascular: normal capillary refill, normal heart sounds, regular rate rhythm Respiratory: aerating well, symmetric expansion, no distress Abdomen: non-tender, normal bowel sounds Genitourinary: no flank pain, no urinary catheter Extremities: no clubbing, no cyanosis Musculoskeletal: no muscle spasm Psychiatry: normal affect, normal judgment/insight Results Findings/Data: Laboratory Tests 04/26 04/26 04/26 04/26 04/26 194 1515 1235 1235 1128 Chemistry Sodium (134 - 147 mEq/L) 143 Potassium (3.4 - 5.0 mEq/L) 3.8 Chloride (100 - 108 mEq/L) 109 H Carbon Dioxide (21 - 33 mEq/l) 26 Anion Gap (0 - 20) 12 BUN (7 - 25 mg/dL) 11 Creatinine (0.6 - 1.3 mg/dL) 1.0 Glomerular Filtr Rate (80 - 90) 85.6 Glucose (77 - 141 mg/dL) 171 H POC Glucose (70 - 110 MG/DL) 168 H 121 H 160 H Calcium (8.0 - 10.5 mg/dL) 9.3 Total Bilirubin (0.0 - 1.0 mg/dL) 1.00 AST (8 - 34 IUnit/L) 48 H ALT (10 - 49 IUnit/L) 55 H Total Alk Phosphatase (20 - 125 IUnit/L) 130 H Ammonia (11 - 35 umol/L) 101 H Total Protein (6.4 - 8.2 g/dL) 7.4 Albumin (3.4 - 5.0 g/dL) 2.90 L 04/26 0709 Chemistry POC Glucose (70 - 110 MG/DL) 106 Laboratory Tests 04/26 1235 Hematology WBC (4.5 - 11.0 x10 3/uL) 3.9 L RBC (4.00 - 5.60 x10 6/uL) 3.80 L Hgb (12.5 - 16.9 g/dL) 9.9 L Hct (37.5 - 50.7 %) 31.2 L MCV (81.0 - 99.0 fL) 82.1 MCH (27.0 - 33.0 pg) 26.1 L MCHC (33.0 - 37.0 g/dL) 31.7 L RDW (11.5 - 14.5 %) 19.3 H Plt Count (150 - 400 x10 3/uL) 162 MPV (7.0 - 9.0 fL) 9.8 H Neut % (Auto) (56.0 - 77.0 %) 49.5 L Lymph % (Auto) (14.0 - 32.0 %) 35.2 H Crawford % (Auto) (4.8 - 9.0 %) 11.4 H Eos % (Auto) (0.3 - 3.7 %) 2.6 Baso % (Auto) (0.0 - 2.0 %) 1.3 Neut # (Auto) (2.0 - 7.6 x10 3/uL) 1.91 L Lymph # (Auto) (1.0 - 3.8 x10 3/uL) 1.36 Crawford # (Auto) (0.1 - 0.8 x10 3/uL) 0.44 Eos # (Auto) (0.0 - 0.2 x10 3/uL) 0.10 Baso # (Auto) (0.0 - 0.2 x10 3/uL) 0.05 Abs Immat Gran (auto) (0.00 - 0.03 x10 3/uL) 0.00 Immature Gran % (0.0 - 2.0 %) 0.0 Nucleated RBC % (0 - 0 %) 0.0 Nucleated RBCs # (Man) (0.0 - 0.1 x10 3/uL) 0.00 Diagnosis, Assessment Plan Problem List/A P: 1. Hyperammonemic encephalopathy 2. AMS (altered mental status) 3. Uncontrolled diabetes mellitus 4. Cirrhosis 5. RIGHT ICA STENOSIS 6. Acute hepatic encephalopathy Consultants: cardiovascular surgery, hospitalist Free Text DxA P Notes Free text DxA P notes: Assessment Hepatic encephalopathy Metabolic encephalopathy Liver cirrhosis Anemia Plan 04/26 Telemetry, strict pulmonary, strict JACK's, monitor, replace electrolytes Ammonia trending up to 189, no bowel movement, started GoLytely, continue lactulose. increased lactulose to q6. Continue Rifaximin add rectal lactulose Avoid narcotics, sedatives, every 4 hours neuroexams No significant improvement in metabolic encephalopathy, neurology fall precautions at 0625 RPT #:[id number] END OF REPORT [facility] 2024-04-26 08:06:00 [facility] ([facility]) Gastroenterology Progress Note REPORT#:[id number] REPORT STATUS: Signed REPORT INITIALIZATION DATE:04/26/24 TIME: 08 PATIENT: KEYLA LITTLE UNIT #: [id number] ROOM/BED: [place] [address] : 62 AGE: 63 SEX: M ATTEND: Vlad Couch MD ADM AUTHOR: Dolly Collier MD REPT SERVICE DT/TIME: 04/26/24 08 * ALL edits or amendments must be made on the electronic/computer document * Subjective Chief complaint: High ammonia HPI: 63 year old man with hx of cirrhosis who was hospitalized with encephalopathy. Upon the encounter pt mental status seems to have improved. Pt reports knowing about cirrhosis for a while. Not being managed. No alcohol intake. Etiology of cirrhosis in not clear. 04/06: still confused. RUQ U/S pending 04/07: MRI showed subacute infarct in the brain. Right upper quad ultrasound showed evidence of TIPS. No liver masses. 04/08: moving bowels. Still confused. Ammonia trending up 04/09: HE grade 2, Ammonia 135, cont lactulose and xifaxin 04/10: ammonia coming down mental status improving 04/11: Mental status better. 04/12: No change. Mental status improving. He is having 3-4 bowel movements a day on lactulose 04/13: No complaints. Oriented 04/14: Mental status improved. Getting neuro work-up 04/15: No new events. 04/25: Mental status is not improving. Patient is agitated. He is on lactulose and rifaximin. 04/26: KUB showed no obstruction. given 1.5 liter of golytely without a BM. Objective Physical Exam HEENT: anicteric Cardiovascular: normal heart sounds Respiratory: clear to auscultation Abdomen: non-tender Extremities: no edema Diagnosis, Assessment Plan Problem List/A P: 1. Herpetic encephalitis 2. Cirrhosis Free Text A P: Right upper quadrant ultrasound showed evidence of cirrhosis without liver mass. Presence of TIPS. No ascites. Patient now has subacute infarcts. Neurology on board. Ammonia trending up and still confused however better. C/W lactulose and Rifaximin. Would avoid trending Ammonia. Goal of 3 bowel movements a day. Avoid benzos and opioids Look for infection contributing to his worsening mental status. Given history of patent TIPS unlikely to have ascites or SBP. HCC was ruled out earlier during this admission. Correct any electrolyte imbalance KUB reviewed. Started on golytely. Will assess response. Asked staff to keep pt upright to prevent aspiration. If pt develop nausea to stop golytely Consultants: cardiovascular surgery, hospitalist at 0807 RPT #:[id number] END OF REPORT [facility] 2024-04-25 17:49:00 [facility] ([facility] Hospitalist Progress Note REPORT#:[id number] REPORT STATUS: Signed REPORT INITIALIZATION DATE:04/25/24 TIME: 1748 PATIENT: KEYLA LITTLE UNIT #: [id number] ROOM/BED: [place] [address] : 64 AGE: 63 SEX: M ATTEND: Vlad Couch MD ADM AUTHOR: Zuly Azul MD REPT SERVICE DT/TIME: 04/25/241748 * ALL edits or amendments must be made on the electronic/computer document * Subjective Chief complaint: more awake Breathing is stable. Not in distress. BP and HR stable. Free Text Subj Notes Free Text Subj Notes: Patient appears very confused, AAO x 0, awake, in no acute distress however unable to answer any relevant question Review of Systems All systems rev neg: except as noted Objective General VS/I O: Vital Signs: Date Time Temp Pulse Resp B/P B/P Pulse O2 O2 Flow FiO2 Mean Ox Delivery Rate 04/25 1341 97.5 59 13 137/68 91.1 97 Room air 04/25 0941 97.5 68 14 134/58 83.6 97 Room air 04/25 0705 72 15 114/56 75.2 97 Room air 04/24 2025 97.9 68 14 122/61 81.4 98 PATIENT WEIGHT: Weight (lb): 179 Weight (oz): 0 Weight (kg): 81.193 Medications: Active Meds + DC'd Last 24 Hrs Lactulose (LACTULOSE) 200 GM BID RECTAL Sodium Chloride (SODIUM CHLORIDE IRRIG BAG) 700 ML Lactulose (LACTULOSE) 20 GM Q6H PO Rifaximin (XIFaxan) 550 MG BID PO Midodrine (PROAMATINE) 5 MG 0900,1300,1700 PO Docusate Sodium (COLACE) 100 MG BID PO Bisacodyl (DULCOLAX) 10 MG DAILY PRN PRN RECTAL Magnesium Hydroxide (MILK OF MAGNESIA) 30 ML Q6H PRN PRN PO Quetiapine Fumarate (SeroqueL) 25 MG Q8H PRN PRN PO Aspirin (ASPIRIN) 81 MG DAILY PO Melatonin (Melatonin) 3 MG BEDTIME PRN PO Insulin Glargine (Semglee) 15 UNIT BID SUBQ Folic Acid (FOLIC ACID) 1 MG DAILY PO Metformin HCl (GLUCOPHAGE) 500 MG C BK PO Atorvastatin Calcium (LIPITOR) 20 MG BEDTIME PO Pantoprazole (PROTONIX) 40 MG BID PO Dextrose/Water (DEXTROSE 10% IN WATER) 125 ML ASDIR PRN IV (CKD) Dextrose/Water (DEXTROSE 10% IN WATER) 250 ML ASDIR PRN IV (CKD) Glucagon (GLUCAGON) 1 MG ASDIR PRN IM Hydralazine HCl (APRESOLINE) 10 MG Q6H PRN PRN IV Insulin Human Lispro (HUMALOG) 0 AC HS SUBQ Acetaminophen (TYLENOL) 650 MG Q4H PRN PRN PO Al Hydrox/Mg Hydrox/Simethicone (MYLANTA) 30 ML Q4H PRN PRN PO Ondansetron HCl (ZOFRAN) 4 MG Q4H PRN PRN IV Physical Exam General appearance: altered mental status, chronically ill appearing, confused, awake Head/Eyes: atraumatic, normocephalic, PERRLA ENT: moist mucosal membranes, normal dentition Cardiovascular: normal capillary refill, normal heart sounds, regular rate rhythm Respiratory: aerating well, symmetric expansion, no distress Abdomen: non-tender, normal bowel sounds Genitourinary: no flank pain, no urinary catheter Extremities: no clubbing, no cyanosis Musculoskeletal: no muscle spasm Results Findings/Data: Laboratory Tests 04/25 04/25 04/25 04/24 1107 0729 0247 2207 Chemistry POC Glucose (70 - 110 MG/DL) 133 H 106 123 H Ammonia (11 - 35 umol/L) 189 H Diagnosis, Assessment Plan Problem List/A P: 1. Hyperammonemic encephalopathy 2. AMS (altered mental status) 3. Uncontrolled diabetes mellitus 4. Cirrhosis 5. RIGHT ICA STENOSIS 6. Acute hepatic encephalopathy Consultants: cardiovascular surgery, hospitalist Free Text DxA P Notes Free text DxA P notes: Assessment Hepatic encephalopathy Metabolic encephalopathy Liver cirrhosis Anemia Plan Telemetry, strict pulmonary, strict JACK's, monitor, replace electrolytes Ammonia trending up to 189 increased lactulose to q6. Continue Rifaximin add rectal lactulose. Avoid narcotics, sedatives Every 4 hours neuroexam, fall precautions Consider placing NG at 0712 RPT #:[id number] END OF REPORT [facility] 2024-04-25 12:52:00 [facility] Gastroenterology Progress Note REPORT#:[id number] REPORT STATUS: Signed REPORT INITIALIZATION DATE:04/25/24 TIME: 125 PATIENT: KEYLA LITTLE UNIT #: [id number] ROOM/BED: [place] [address] : 64 AGE: 63 SEX: M ATTEND: Vlad Couch MD ADM AUTHOR: Dolly Collier MD REPT SERVICE DT/TIME: 04/25/24 1252 * ALL edits or amendments must be made on the electronic/computer document * Subjective Chief complaint: High ammonia HPI: 63 year old man with hx of cirrhosis who was hospitalized with encephalopathy. Upon the encounter pt mental status seems to have improved. Pt reports knowing about cirrhosis for a while. Not being managed. No alcohol intake. Etiology of cirrhosis in not clear. 04/06: still confused. RUQ U/S pending 04/07: MRI showed subacute infarct in the brain. Right upper quad ultrasound showed evidence of TIPS. No liver masses. 04/08: moving bowels. Still confused. Ammonia trending up 04/09: HE grade 2, Ammonia 135, cont lactulose and xifaxin 04/10: ammonia coming down mental status improving 04/11: Mental status better. 04/12: No change. Mental status improving. He is having 3-4 bowel movements a day on lactulose 04/13: No complaints. Oriented 04/14: Mental status improved. Getting neuro work-up 04/15: No new events. 04/25: Mental status is not improving. Patient is agitated. He is on lactulose and rifaximin. Objective Physical Exam HEENT: anicteric Cardiovascular: normal heart sounds Respiratory: clear to auscultation Abdomen: non-tender Extremities: no edema Diagnosis, Assessment Plan Problem List/A P: 1. Herpetic encephalitis 2. Cirrhosis Free Text A P: Right upper quadrant ultrasound showed evidence of cirrhosis without liver mass. Presence of TIPS. No ascites. Patient now has subacute infarcts. Neurology on board. Ammonia trending up and still confused however better. C/W lactulose and Rifaximin. Would avoid trending Ammonia. Goal of 3 bowel movements a day. Avoid benzos and opioids Look for infection contributing to his worsening mental status. Given history of patent TIPS unlikely to have ascites or SBP. HCC was ruled out earlier during this admission. Correct any electrolyte imbalance Will follow Consultants: cardiovascular surgery, hospitalist at 1254 RPT #:[id number] END OF REPORT [facility] 2024-04-24 11:42:00 [facility] Internal Medicine Prog. Note REPORT#:[id number] REPORT STATUS: Signed REPORT INITIALIZATION DATE:04/24/24 TIME: 114 PATIENT: KEYLA LITTLE UNIT #: [id number] ROOM/BED: [place] [address] : 64 AGE: 63 SEX: M ATTEND: Vlad Couch MD ADM AUTHOR: Rony Martin MD REPT SERVICE DT/TIME: 04/24/24 1142 * ALL edits or amendments must be made on the electronic/computer document * Subjective Chief complaint: hepatic encephalopathy HPI: confused no CP no SOB no abd pain Review of Systems All systems rev neg: except as marked Objective General VS/I O: Vital Signs Date Temp Pulse Resp B/P B/P Mean Pulse Ox FiO2 04/23-04/24 36.3-36.8 69-76 14-18 129-151/59-72 84.0-98.2 98-100 Last Documented: Result Date Time Pulse Ox 100 04/24 0710 B/P 135/59 04/24 0710 B/P Mean 84.0 04/24 0710 Temp 36.4 04/24 0710 Pulse 71 04/24 0710 Resp 16 04/24 0710 O2 Delivery Room air 04/24 0024 O2 Flow Rate 2 04/19 1730 24 hour I O ending at 0700: 04/24 0700 04/23 1900 Intake Total 240 Output Total Balance 240 Intake, Oral 240 PATIENT WEIGHT: Weight (lb): 179 Weight (oz): 0 Weight (kg): 81.193 Physical Exam General appearance: chronically ill appearing, confused, awake Head/Eyes: atraumatic, EOMI, normocephalic, PERRLA ENT: normal pharynx Neck: non-tender, no JVD Cardiovascular: normal heart sounds, regular rate rhythm, no murmur Respiratory: aerating well, clear to auscultation, symmetric expansion, no distress Abdomen: non-tender, normal bowel sounds, soft, no distention Extremities: Extremities: no edema Musculoskeletal: normal inspection Neuro/NEON PUMPER: alert, oriented x 3 Results Findings/Data: Laboratory Tests 04/24 04/23 04/23 04/23 0412 1929 1548 1411 Chemistry POC Glucose (70 - 110 MG/DL) 229 H 83 Ammonia (11 - 35 umol/L) 183 H 168 H Diagnosis, Assessment Plan Problem List/A P: 1. Hyperammonemic encephalopathy 2. AMS (altered mental status) 3. Uncontrolled diabetes mellitus 4. Cirrhosis 5. RIGHT ICA STENOSIS 6. Acute hepatic encephalopathy Consultants: cardiovascular surgery, hospitalist Free Text DxA P Notes Free text DxA P notes: ammonia level remain high(even higher today) increased lactulose to q6. Continue Rifaximin add rectal lactulose. repeat ammonia level. ammonia level is trending up, re consult GI. overall more confused. activity as tolerates diet as tolerate s/p right CEA, post op day 2 blood pressure mgmt cirrhosis mgmt -at baseline, compensated, no signs of fluid overload. no signs of infection(no leukocytosis, fever, etc) at 1145 RPT #:[id number] END OF REPORT [facility] 2024-04-23 12:22:00 [facility] ([facility]) Internal Medicine Prog. Note REPORT#:[id number] REPORT STATUS: Signed REPORT INITIALIZATION DATE:04/23/24 TIME: 1221 PATIENT: KEYLA LITTLE UNIT #: [id number] ROOM/BED: [place] [id number] : [birth year] AGE: 63 SEX: M ATTEND: Vlad Couch MD ADM AUTHOR: Rony Martin MD REPT SERVICE DT/TIME: 04/23/24 1222 * ALL edits or amendments must be made on the electronic/computer document * Subjective Chief complaint: hepatic encephalopathy HPI: alert, ambulating no CP no SOB mildly confused today. no abd pain Review of Systems All systems rev neg: except as marked Objective General VS/I O: Vital Signs Date Temp Pulse Resp B/P B/P Mean Pulse Ox FiO2 04/22-04/23 36.5-36.8 58-64 14-20 87-134/42-62 57.4-85.8 97-100 Last Documented: Result Date Time Pulse Ox 100 04/23 1053 B/P 115/61 04/23 1053 B/P Mean 79.1 04/23 1053 O2 Delivery Room air 04/23 1053 Temp 36.5 04/23 1053 Pulse 59 04/23 1053 Resp 14 04/23 1053 O2 Flow Rate 2 04/19 1730 24 hour I O ending at 0700: 04/23 0700 04/22 1900 Intake Total 600 Output Total Balance 600 Intake, Oral 600 Number 1 Bowel Movements Number Voids 1 PATIENT WEIGHT: Weight (lb): 179 Weight (oz): 0 Weight (kg): 81.193 Physical Exam General appearance: confused, alert, awake Head/Eyes: atraumatic, EOMI, normocephalic, PERRLA ENT: normal pharynx Neck: non-tender, no JVD Cardiovascular: normal heart sounds, regular rate rhythm, no murmur Respiratory: aerating well, clear to auscultation, symmetric expansion, no distress Abdomen: non-tender, normal bowel sounds, soft, no distention Extremities: Extremities: no edema Musculoskeletal: normal inspection Neuro/NEON PUMPER: alert, oriented x 3 Results Findings/Data: Laboratory Tests 04/23/240: [Embedded Image Not Available] 04/23/24427: [Embedded Image Not Available] Laboratory Tests 04/2315 0430 1927 1545 1254 Chemistry Sodium (134 - 147 mEq/L) 142 Potassium (3.4 - 5.0 mEq/L) 3.8 Chloride (100 - 108 mEq/L) 109 H Carbon Dioxide (21 - 33 mEq/l) 28 Anion Gap (0 - 20) 9 BUN (7 - 25 mg/dL) 14 Creatinine (0.6 - 1.3 mg/dL) 1.0 Glomerular Filtr Rate (80 - 90) 85.6 Glucose (77 - 141 mg/dL) 215 H POC Glucose (70 - 110 MG/DL) 167 H 141 H 80 Calcium (8.0 - 10.5 mg/dL) 8.5 Ionized Calcium Sana (1.09 - 1.30 MMOL/L) 1.15 Phosphorus (2.5 - 4.9 MG/DL) 3.8 Magnesium (1.6 - 2.6 mg/dL) 2.12 Total Bilirubin (0.0 - 1.0 mg/dL) 0.60 AST (8 - 34 IUnit/L) 32 ALT (10 - 49 IUnit/L) 35 Total Alk Phosphatase (20 - 125 IUnit/L) 100 Ammonia (11 - 35 umol/L) 153 H Total Protein (6.4 - 8.2 g/dL) 6.0 L Albumin (3.4 - 5.0 g/dL) 2.50 L Laboratory Tests 04/23 428 Hematology WBC (4.5 - 11.0 x10 3/uL) 3.8 L RBC (4.00 - 5.60 x10 6/uL) 3.07 L Hgb (12.5 - 16.9 g/dL) 8.2 L Hct (37.5 - 50.7 %) 25.7 L MCV (81.0 - 99.0 fL) 83.7 MCH (27.0 - 33.0 pg) 26.7 L MCHC (33.0 - 37.0 g/dL) 31.9 L RDW (11.5 - 14.5 %) 19.9 H Plt Count (150 - 400 x10 3/uL) 126 L MPV (7.0 - 9.0 fL) 10.8 H Neut % (Auto) (56.0 - 77.0 %) 37.1 L Lymph % (Auto) (14.0 - 32.0 %) 40.6 H Crawford % (Auto) (4.8 - 9.0 %) 17.0 H Eos % (Auto) (0.3 - 3.7 %) 4.0 H Baso % (Auto) (0.0 - 2.0 %) 0.8 Neut # (Auto) (2.0 - 7.6 x10 3/uL) 1.40 L Lymph # (Auto) (1.0 - 3.8 x10 3/uL) 1.53 Crawford # (Auto) (0.1 - 0.8 x10 3/uL) 0.64 Eos # (Auto) (0.0 - 0.2 x10 3/uL) 0.15 Baso # (Auto) (0.0 - 0.2 x10 3/uL) 0.03 Abs Immat Gran (auto) (0.00 - 0.03 x10 3/uL) 0.02 Immature Gran % (0.0 - 2.0 %) 0.5 Nucleated RBC % (0 - 0 %) 0.0 Nucleated RBCs # (Man) (0.0 - 0.1 x10 3/uL) 0.00 Diagnosis, Assessment Plan Problem List/A P: 1. Hyperammonemic encephalopathy 2. AMS (altered mental status) 3. Uncontrolled diabetes mellitus 4. Cirrhosis 5. RIGHT ICA STENOSIS 6. Acute hepatic encephalopathy Consultants: cardiovascular surgery, hospitalist Free Text DxA P Notes Free text DxA P notes: ammonia level remain high(even higher today) patient is alert, not confused. start lactulose scheduled TID and add Rifaximin. titrate lactulsoe to have 3-4 BMs a day. GI following increase lactulose to q6. Rifaximin repeat ammonia level. slightly confused, monitor closely. activity as tolerates diet as tolerate s/p right CEA, post op day 2 blood pressure mgmt cirrhosis mgmt -at baseline, compensated ok for floor with tele at 1224 RPT #:[id number] END OF REPORT [facility] 2024-04-22 11:25:00 [facility] ([facility]) Discharge Summary REPORT#:[id number] REPORT STATUS: Signed REPORT INITIALIZATION DATE:04/22/24 TIME: 1124 PATIENT: KEYLA LITTLE UNIT #: [id number] ROOM/BED: [place] [id number] : 62 AGE: 63 SEX: M ATTEND: Vlad Couch MD ADM AUTHOR: Rony Martin MD REPT SERVICE DT/TIME: 04/22/24 1125 * ALL edits or amendments must be made on the electronic/computer document * PCP PCP Discharge to: home General Information Problem List/A P: 1. Hyperammonemic encephalopathy 2. AMS (altered mental status) 3. Uncontrolled diabetes mellitus 4. Cirrhosis 5. RIGHT ICA STENOSIS 6. Acute hepatic encephalopathy Date of admission: Observation Start Date: Date of admission: 04/03/24 Discharge date: 04/22/24 Admission diagnosis: carotid stenosis heptic encephalopathy Discharge diagnosis: hepatic encephalopathy cardotid stenosis s/p endarterectomy Hospital course: Patient presented with AMS due to elevated ammonia, patient has h/o liver cirrhosis, GI consulted, uptitrated lactulose, patient is alert and ambulating. WOrk up showed significant carotid stenosis for which he underwent carotid endarterectomy on the right, uneventful course, now ambulating, tolerating po well. compensated liver cirrhosis, no signs of fluid overload. Oriented and alert. discharge home Consultants: cardiovascular surgery, hospitalist Med Rec PCP PCP: PCP: Bo Steele MD Med Rec Discharge meds: Continue taking these medications: FERROUS GLUCONATE (FERROUS GLUCONATE) 324 MG (37.5 MG IRON) TAB 324 MILLIGRAM ORAL DAILY. RIFAXIMIN (XIFAXAN) 550 MG TAB 550 MILLIGRAM ORAL TWICE DAILY. FOLIC ACID (FOLIC ACID) 1 MG TAB 1 MILLIGRAM ORAL DAILY. ATORVASTATIN (LIPITOR) 20 MG TAB 20 MILLIGRAM ORAL BEDTIME. PANTOPRAZOLE DR (PROTONIX) 40 MG TAB.DR 40 MILLIGRAM ORAL TWICE DAILY. ASPIRIN (ASPIRIN) 81 MG TAB.CHEW 81 MILLIGRAM ORAL DAILY. metFORMIN ER (metFORMIN ER) 500 MG TAB.SR.24H 500 MILLIGRAM ORAL DAILY. LACTULOSE (LACTULOSE 10 GM/15 ML) 10 GRAM/15 ML SYRUP 45 MILLILITERS ORAL THREE TIMES A DAY. Start taking the following new medications: MIDODRINE (PROAMATINE) 5 MG TAB 5 MILLIGRAM ORAL 0900,1300,1700 Qty = 21 No Refills Objective VS/I O Last Documented: Result Date Time Pulse Ox 95 04/22 1115 B/P 97/49 04/22 1115 B/P Mean 65.1 04/22 1115 Temp 36.6 04/22 1115 Pulse 63 04/22 1115 Resp 15 04/22 1115 O2 Delivery Room air 04/22 0355 O2 Flow Rate 2 04/19 1730 PATIENT WEIGHT: Weight (lb): 179 Weight (oz): 0 Weight (kg): 81.193 General appearance: alert, awake, oriented Head/Eyes: atraumatic, EOMI, normocephalic Neck: full range of motion, non-tender, no JVD, no lymphadenopathy Cardiovascular: normal capillary refill, regular rate rhythm, no heave, no murmur, no rub Respiratory: clear to auscultation, no distress, no tenderness GI: soft, non-tender, no guarding, no distention Extremities: moves all, normal motor function, normal tone, no clubbing, no cyanosis Skin: dry, intact, no gross abnormalities, normal turgor Results Findings/Data: Laboratory Tests: 04/22 04/22 04/21 04/21 0804 0310 2109 1148 Chemistry Sodium (134 - 147 mEq/L) 142 Potassium (3.4 - 5.0 mEq/L) 4.5 Chloride (100 - 108 mEq/L) 109 H Carbon Dioxide (21 - 33 mEq/l) 29 Anion Gap (0 - 20) 8 BUN (7 - 25 mg/dL) 11 Creatinine (0.6 - 1.3 mg/dL) 1.1 Glomerular Filtr Rate (80 - 90) 76.4 L Glucose (77 - 141 mg/dL) 143 H POC Glucose (70 - 110 MG/DL) 166 H 179 H 138 H Calcium (8.0 - 10.5 mg/dL) 8.4 Ionized Calcium Sana (1.09 - 1.30 MMOL/L) 1.06 L Phosphorus (2.5 - 4.9 MG/DL) 4.0 Magnesium (1.6 - 2.6 mg/dL) 2.15 Total Bilirubin (0.0 - 1.0 mg/dL) 0.60 AST (8 - 34 IUnit/L) 36 H ALT (10 - 49 IUnit/L) 35 Total Alk Phosphatase (20 - 125 IUnit/L) 96 Total Protein (6.4 - 8.2 g/dL) 5.8 L Albumin (3.4 - 5.0 g/dL) 2.40 L Hematology WBC (4.5 - 11.0 x10 3/uL) 4.7 RBC (4.00 - 5.60 x10 6/uL) 3.15 L Hgb (12.5 - 16.9 g/dL) 8.4 L Hct (37.5 - 50.7 %) 26.5 L MCV (81.0 - 99.0 fL) 84.1 MCH (27.0 - 33.0 pg) 26.7 L MCHC (33.0 - 37.0 g/dL) 31.7 L RDW (11.5 - 14.5 %) 20.3 H Plt Count (150 - 400 x10 3/uL) 128 L MPV (7.0 - 9.0 fL) 10.7 H Neut % (Auto) (56.0 - 77.0 %) 43.0 L Lymph % (Auto) (14.0 - 32.0 %) 38.0 H Crawford % (Auto) (4.8 - 9.0 %) 14.6 H Eos % (Auto) (0.3 - 3.7 %) 3.4 Baso % (Auto) (0.0 - 2.0 %) 0.8 Neut # (Auto) (2.0 - 7.6 x10 3/uL) 2.02 Lymph # (Auto) (1.0 - 3.8 x10 3/uL) 1.79 Crawford # (Auto) (0.1 - 0.8 x10 3/uL) 0.69 Eos # (Auto) (0.0 - 0.2 x10 3/uL) 0.16 Baso # (Auto) (0.0 - 0.2 x10 3/uL) 0.04 Abs Immat Gran (auto) (0.00 - 0.03 x10 3/uL) 0.01 Immature Gran % (0.0 - 2.0 %) 0.2 Nucleated RBC % (0 - 0 %) 0.4 H Nucleated RBCs # (Man) (0.0 - 0.1 x10 3/uL) 0.02 Treatments Procedures Treatments Procedures: 1. Hyperammonemic encephalopathy see below 2. AMS (altered mental status)-hepatic encephalopathy. Lactulose and Rifaximin added. 3. Uncontrolled diabetes mellitus 4. Cirrhosis, compensated 5. RIGHT ICA STENOSIS 6. Acute hepatic encephalopathy s/p R CEA. COntinue Midodrine. AMS resolved. GLycemic control. GLu is better controlled. I spent 45 min discharging this patient. Discharge Instructions PCP )( Discharge to: Home/Self Care Discharge Instructions Additional Discharge Routines: Gang [employer] Operator Follow-Up )( Diet: Regular Follow-up Appointments Consulting provider 1: Provider 1: Mukesh Martin Jr, DO Specialty: Vascular Surgery at 1130 RPT #:[id number] END OF REPORT [facility] 2024-04-21 13:18:00 [facility] Internal Medicine Prog. Note REPORT#:[id number] REPORT STATUS: Signed REPORT INITIALIZATION DATE:04/21/24 TIME: 1317 PATIENT: KEYLA LITTLE UNIT #: [id number] ROOM/BED: [place] [id number] : 62 AGE: 63 SEX: M ATTEND: Vlad Couch MD ADM AUTHOR: Rony Martin MD REPT SERVICE DT/TIME: 04/21/24 1318 * ALL edits or amendments must be made on the electronic/computer document * Subjective Chief complaint: hepatic encephalopathy HPI: alert, ambulating no CP no SOB no confusion reprots having BM 1-2 a day no abd pain Review of Systems All systems rev neg: except as marked Objective General VS/I O: Vital Signs Date Temp Pulse Resp B/P B/P Mean Pulse Ox FiO2 04/20-04/21 36.6-37.1 59-80 11-40 99-136/32-60 53-87 96-99 Last Documented: Result Date Time Temp 36.6 04/21 1200 B/P 129/59 04/21 1033 B/P Mean 85 04/21 1033 Pulse 66 04/21 1033 Resp 12 04/21 1033 Pulse Ox 96 04/20 1630 O2 Delivery Room air 04/20 0400 O2 Flow Rate 2 04/19 1730 24 hour I O ending at 0700: 04/21 0700 04/20 1900 Intake Total 350 1200.00 Output Total Balance 350 1200.00 Intake, IV 500.00 Intake, Oral 700 Intake, 350 Packed Cells Number Voids 3 2 Patient 81.193 kg Weight PATIENT WEIGHT: Weight (lb): 179 Weight (oz): 0 Weight (kg): 81.193 Physical Exam General appearance: alert, awake, oriented Head/Eyes: atraumatic, EOMI, normocephalic, PERRLA ENT: normal pharynx Neck: non-tender, no JVD Cardiovascular: normal heart sounds, regular rate rhythm, no murmur Respiratory: aerating well, clear to auscultation, symmetric expansion, no distress Abdomen: non-tender, normal bowel sounds, soft, no distention Extremities: Extremities: no edema Musculoskeletal: normal inspection Neuro/NEON PUMPER: alert, oriented x 3 Results Findings/Data: Laboratory Tests 04/21/24 0324: [Embedded Image Not Available] 04/20/24 1359: [Embedded Image Not Available] Laboratory Tests 04/21 04/21 04/21 04/20 04/20 1148 0324 0322003 1731 Chemistry Sodium (134 - 147 mEq/L) 139 Potassium (3.4 - 5.0 mEq/L) 4.3 Chloride (100 - 108 mEq/L) 106 Carbon Dioxide (21 - 33 mEq/l) 28 Anion Gap (0 - 20) 9 BUN (7 - 25 mg/dL) 12 Creatinine (0.6 - 1.3 mg/dL) 1.0 Glomerular Filtr Rate (80 - 90) 85.6 Glucose (77 - 141 mg/dL) 178 H POC Glucose (70 - 110 MG/DL) 138 H 156 H 139 H Calcium (8.0 - 10.5 mg/dL) 8.0 Ionized Calcium Sana (1.09 - 1.30 1.09 MMOL/L) Phosphorus (2.5 - 4.9 MG/DL) 3.4 Magnesium (1.6 - 2.6 mg/dL) 1.85 Total Bilirubin (0.0 - 1.0 mg/dL) 0.50 AST (8 - 34 IUnit/L) 31 ALT (10 - 49 IUnit/L) 39 Total Alk Phosphatase (20 - 125 97 IUnit/L) Ammonia (11 - 35 umol/L) 124 H Total Protein (6.4 - 8.2 g/dL) 5.8 L Albumin (3.4 - 5.0 g/dL) 2.50 L Laboratory Tests 04/21 04/20 0324 1359 Hematology WBC (4.5 - 11.0 x10 3/uL) 6.5 RBC (4.00 - 5.60 x10 6/uL) 3.10 L Hgb (12.5 - 16.9 g/dL) 8.2 L 7.5 L Hct (37.5 - 50.7 %) 25.5 L 23.4 L MCV (81.0 - 99.0 fL) 82.3 MCH (27.0 - 33.0 pg) 26.5 L MCHC (33.0 - 37.0 g/dL) 32.2 L RDW (11.5 - 14.5 %) 20.3 H Plt Count (150 - 400 x10 3/uL) 116 L MPV (7.0 - 9.0 fL) 10.6 H Neut % (Auto) (56.0 - 77.0 %) 51.9 L Lymph % (Auto) (14.0 - 32.0 %) 31.4 Crawford % (Auto) (4.8 - 9.0 %) 13.6 H Eos % (Auto) (0.3 - 3.7 %) 1.8 Baso % (Auto) (0.0 - 2.0 %) 0.8 Neut # (Auto) (2.0 - 7.6 x10 3/uL) 3.37 Lymph # (Auto) (1.0 - 3.8 x10 3/uL) 2.04 Crawford # (Auto) (0.1 - 0.8 x10 3/uL) 0.88 H Eos # (Auto) (0.0 - 0.2 x10 3/uL) 0.12 Baso # (Auto) (0.0 - 0.2 x10 3/uL) 0.05 Abs Immat Gran (auto) (0.00 - 0.03 x10 3/uL) 0.03 Immature Gran % (0.0 - 2.0 %) 0.5 Nucleated RBC % (0 - 0 %) 0.0 Nucleated RBCs # (Man) (0.0 - 0.1 x10 3/uL) 0.00 Diagnosis, Assessment Plan Problem List/A P: 1. Hyperammonemic encephalopathy 2. AMS (altered mental status) 3. Uncontrolled diabetes mellitus 4. Cirrhosis 5. RIGHT ICA STENOSIS 6. Acute hepatic encephalopathy Consultants: cardiovascular surgery, hospitalist Free Text DxA P Notes Free text DxA P notes: ammonia level remain high(even higher today) patient is alert, not confused. start lactulose scheduled TID and add Rifaximin. titrate lactulsoe to have 3-4 BMs a day. GI following resume home meds activity as tolerates diet as tolerate s/p right CEA, post op day 2 blood pressure mgmt cirrhosis mgmt -at baseline, compensated ok for floor with tele d/c planning soon once ammonia level is lower at 1321 RPT #:[id number] END OF REPORT [facility] 2024-04-20 10:06:00 [facility] Internal Medicine Prog. Note REPORT#:[id number] REPORT STATUS: Signed REPORT INITIALIZATION DATE:04/20/24 TIME: 100 PATIENT: KEYLA LITTLE UNIT #: [id number] ROOM/BED: [facility]1 : 62 AGE: 63 SEX: M ATTEND: Vlad Couch MD ADM AUTHOR: Vlad Couch MD REPT SERVICE DT/TIME: 04/20/24 1006 * ALL edits or amendments must be made on the electronic/computer document * Subjective Free Text Subj Notes Free Text Subj Notes: s/p right CEA, POD1 Review of Systems All systems rev neg: except as marked Objective Physical Exam Head/Eyes: atraumatic, EOMI, normocephalic, PERRLA ENT: normal pharynx Neck: non-tender, no JVD Cardiovascular: normal heart sounds, regular rate rhythm, no murmur Respiratory: aerating well, clear to auscultation, symmetric expansion, no distress Abdomen: non-tender, normal bowel sounds, soft, no distention Extremities: Extremities: no edema Musculoskeletal: normal inspection Neuro/NEON PUMPER: alert, oriented x 3 Diagnosis, Assessment Plan Problem List/A P: 1. Hyperammonemic encephalopathy 2. AMS (altered mental status) 3. Uncontrolled diabetes mellitus 4. Cirrhosis 5. RIGHT ICA STENOSIS 6. Acute hepatic encephalopathy Free Text DxA P Notes Free text DxA P notes: medications reviewed, continue same resume home meds activity as tolerates diet as tolerates s/p right CEA, post op day 1 blood pressure mgmt cirrhosis mgmt -at baseline d/c planning at 0035 RPT #:[id number] END OF REPORT [facility] 2024-04-20 09:35:00 [facility] ([facility]) Critical Care Consult Note REPORT#:[id number] REPORT STATUS: Signed REPORT INITIALIZATION DATE:04/20/24 TIME: 934 PATIENT: KEYLA LITTLE UNIT #: [id number] ROOM/BED: [place] [address] : 64 AGE: 63 SEX: M ATTEND: Vald Couch MD ADM AUTHOR: Keshia Simental REPT SERVICE DT/TIME: 04/20/24 0935 * ALL edits or amendments must be made on the electronic/computer document * History of Present Illness HPI Requesting clinician: Dr. Martin Reason for consult: Post op care Chief complaint: AMS R ICA stenosis CVA Hepatic encephalopathy PCP: PCP: Bo Steele MD HPI: Keyla Little is a 63-year -old-male patient with a PMHx of HTN, HLD, previous CVA, liver disease, uncontrolled DM who was admitted to [facility] for altered mentation. His w/up showed an evolving late subacute infarction of the right frontal lobe without hemorrhagic transformation. CTA of the neck revealed severe stenosis of the right carotid bulb and ICA. His ammonia level was 133. History - Adult longitudinal Additional medical history: HTN, HLD, DM II, cirrhosis Additional surgical history: reviewed Additional family history: reviewed, GREGORIO Alcohol use: Denies EtOH use Drug use: Denies recreational drugs Smoking status for patients 13 years old or older: Never Smoker Allergies: Coded Allergies: No Known Allergies (04/03/24) Ambulatory status: Independent Review of Systems ROS Constitutional: Reports: generalized weakness. Skin: Denies: abrasion, bruising, rash, swelling. Allergy/Immun: Denies: allergic reaction, itching, sneezing. Eyes: Denies: visual loss/blurred. ENT: Denies: hearing loss, nasal congestion. Respiratory: Denies: SOB, wheezing. Cardiovascular: Denies: chest pain, edema, palpitations. GI: Denies: abdominal pain, anorexia, constipation, nausea, vomiting. : Denies: dysuria, flank pain. Musculoskeletal: Reports: neck pain. Denies: extremity pain, extremity swelling. Heme: Denies: bruising, petechiae. Endocrine: Denies: cold intolerance, heat intolerance. Neuro: Denies: dizziness, focal weakness, lightheaded, slurred speech, weakness. Psych: Denies: agitation, anxiety. Objective Physical Exam VS/I O: Last Documented: Result Date Time B/P 119/40 04/20 600 B/P Mean 63 04/20 0600 Pulse Ox 98 04/20 0600 Pulse 68 04/20 0600 Resp 12 04/20 06 O2 Delivery Room air 04/20 0400 Temp 98.2 04/20 0400 O2 Flow Rate 2 04/19 1730 24 hour I O ending at 0700: 04/20 0700 04/19 1900 Intake Total 1980.00 Output Total 775 400 Balance 1205.00 -400 Intake, IV 1740.00 Intake, Oral 240 Number 0 Bowel Movements Number Voids 6 Output, 125 Estimated Blood Loss Output, Urine 775 275 Patient 81.3 kg Weight Weight Bed scale Measurement Method Patient Weight and BMI Weight (kg): 81.300 BMI: 23.0 Medications: Active Meds + DC'd Last 24 Hrs Midodrine (PROAMATINE) 5 MG 0900,1300,1700 PO Albumin Human (ALBUMINAR-25%) 50 ML ONCE ONE IV (DC) Docusate Sodium (COLACE) 100 MG BID PO Norepinephrine Bitartrate (NOREPINEPHRINE 8 MG/NS 250 ML) 250 ML TITRATE IV Bisacodyl (DULCOLAX) 10 MG DAILY PRN PRN RECTAL Hydrocodone Bitart/Acetaminophen (NORCO 5/325) 1 TAB Q4H PRN PRN PO Lactated Ringer's (LACTATED RINGERS) 1,000 ML .Q10H IV Magnesium Hydroxide (MILK OF MAGNESIA) 30 ML Q6H PRN PRN PO Mupirocin (BACTROBAN 2% 22 GM OINTMENT) 1 APPLIC BID NASAL Cefazolin Sodium (KEFZOL OR ANCEF) 0 .STK-MED ONE .ROUTE (DC) Dexamethasone Sodium Phosphate (DECADRON) 0 .STK-MED ONE .ROUTE (DC) Fentanyl Citrate (SUBLIMAZE) 0 .STK-MED ONE IV (DC) Lidocaine HCl (XYLOCAINE) 0 .STK-MED ONE .ROUTE (DC) Norepinephrine Bitartrate (LEVOPHED BITARTATE) 0 .STK-MED ONE IV (DC) Ondansetron HCl (ZOFRAN) 0 .STK-MED ONE .ROUTE (DC) Propofol (DIPRIVAN 200MG/20ML INJECTION) 20 ML .STK-MED ONE IV (DC) Rocuronium [place] (ZEMURON) 0 .STK-MED ONE IV (DC) Sodium Chloride (SODIUM CHLORIDE 0.9%) 250 ML .STK-MED ONE IV (DC) Heparin Sodium (HEPARIN SODIUM) 0 .STK-MED ONE .ROUTE (DC) Sodium Chloride (SODIUM CHLORIDE) 20 ML ASDIR IV (DC) Cefazolin Sodium (KEFZOL OR ANCEF) 2 GM PREOP ONCALL IV (DC) Sterile Water (WATER FOR INJECTION) 1.2 ML ASDIR PRN IM Quetiapine Fumarate (SeroqueL) 25 MG Q8H PRN PRN PO Aspirin (ASPIRIN) 81 MG DAILY PO Melatonin (Melatonin) 3 MG BEDTIME PRN PO Lactulose (LACTULOSE) 30 GM Q6HR PO Clopidogrel Bisulfate (Plavix) 75 MG DAILY PO (DC) Sodium Chloride (SODIUM CHLORIDE) 0 ASDIR PRN IV Sodium Chloride (SODIUM CHLORIDE) 0 ASDIR PRN IV Insulin Glargine (Semglee) 15 UNIT BID SUBQ Folic Acid (FOLIC ACID) 1 MG DAILY PO Metformin HCl (GLUCOPHAGE) 500 MG C BK PO Atorvastatin Calcium (LIPITOR) 20 MG BEDTIME PO Pantoprazole (PROTONIX) 40 MG BID PO Rifaximin (XIFaxan) 550 MG BID PO Dextrose/Water (DEXTROSE 10% IN WATER) 125 ML ASDIR PRN IV (CKD) Dextrose/Water (DEXTROSE 10% IN WATER) 250 ML ASDIR PRN IV (CKD) Glucagon (GLUCAGON) 1 MG ASDIR PRN IM Hydralazine HCl (APRESOLINE) 10 MG Q6H PRN PRN IV Insulin Human Lispro (HUMALOG) 0 AC HS SUBQ Acetaminophen (TYLENOL) 650 MG Q4H PRN PRN PO Al Hydrox/Mg Hydrox/Simethicone (MYLANTA) 30 ML Q4H PRN PRN PO Docusate Sodium (COLACE) 100 MG BID PRN PRN PO Ondansetron HCl (ZOFRAN) 4 MG Q4H PRN PRN IV Results Findings/Data: Laboratory Tests 04/20/24 0310: [Embedded Image Not Available] 04/20/24 0310: [Embedded Image Not Available] 04/19/24 1807: [Embedded Image Not Available] 04/19/24 1807: [Embedded Image Not Available] Laboratory Tests 04/19 1400 Blood Gas O2 Saturation (90 - 100 %) 100.0 ABG pH (7.35 - 7.45) 7.426 ABG pCO2 (35.0 - 45 mmHg) 37.8 ABG pO2 (80 - 100.0 mmHg) 548.2 *H ABG HCO3 (22.0 - 26.0 MMOL/L) 24.9 ABG Total CO2 26.0 ABG Base Excess (-4.0 - 4.0 MMOL/L) 0.5 ABG Hematocrit (37.5 - 50.7 %) 29 L ABG Hemoglobin (12.5 - 16.9 G/DL) 9.8 L Sodium (134 - 147 mmol/L) 142 Potassium (3.4 - 5.0 mmol/L) 4.0 Chloride (100 - 108 mmol/L) 109 H Ionized Calcium (1.12 - 1.32 MMOL/L) 1.16 Lactic Acid (0.9 - 1.7 mmol/l) 0.4 L Laboratory Tests 04/208 1807 1807 Chemistry Sodium (134 - 147 mEq/L) 140 141 Potassium (3.4 - 5.0 mEq/L) 4.0 4.0 Chloride (100 - 108 mEq/L) 109 H 109 H Carbon Dioxide (21 - 33 mEq/l) 26 26 Anion Gap (0 - 20) 9 10 BUN (7 - 25 mg/dL) 10 10 Creatinine (0.6 - 1.3 mg/dL) 0.8 0.9 Glomerular Filtr Rate (80 - 90) 100.7 H 97.2 H Glucose (77 - 141 mg/dL) 210 H 273 H POC Glucose (70 - 110 MG/DL) 272 H Calcium (8.0 - 10.5 mg/dL) 8.2 8.3 Ammonia (11 - 35 umol/L) 81 H 91 H 04/19 04/19 04/19 1400 1044 1041 Chemistry POC Creatinine (0.8 - 1.3 mg/dL) 0.7 L POC Glucose (70 - 110 MG/DL) 192 H 185 H POC Glucose (mg/dL) (70 - 110 MG/DL) 194 H Laboratory Tests 04/19 04/19 04/19 04/19 1509 1442 1432 1359 Coagulation Activated Coag Time (74 - 137 SEC) 262 H 281 H 257 H 177 H Laboratory Tests 04/20 1807 Hematology WBC (4.5 - 11.0 x10 3/uL) 7.5 RBC (4.00 - 5.60 x10 6/uL) 3.05 L Hgb (12.5 - 16.9 g/dL) 8.0 L 9.0 L Hct (37.5 - 50.7 %) 25.0 L 27.2 L MCV (81.0 - 99.0 fL) 82.0 MCH (27.0 - 33.0 pg) 26.2 L MCHC (33.0 - 37.0 g/dL) 32.0 L RDW (11.5 - 14.5 %) 20.0 H Plt Count (150 - 400 x10 3/uL) 104 L MPV (7.0 - 9.0 fL) 10.3 H Neut % (Auto) (56.0 - 77.0 %) 74.0 Lymph % (Auto) (14.0 - 32.0 %) 14.6 Crawford % (Auto) (4.8 - 9.0 %) 10.8 H Eos % (Auto) (0.3 - 3.7 %) 0.0 L Baso % (Auto) (0.0 - 2.0 %) 0.3 Neut # (Auto) (2.0 - 7.6 x10 3/uL) 5.58 Lymph # (Auto) (1.0 - 3.8 x10 3/uL) 1.10 Crawford # (Auto) (0.1 - 0.8 x10 3/uL) 0.81 H Eos # (Auto) (0.0 - 0.2 x10 3/uL) 0.00 Baso # (Auto) (0.0 - 0.2 x10 3/uL) 0.02 Abs Immat Gran (auto) (0.00 - 0.03 x10 3/uL) 0.02 Immature Gran % (0.0 - 2.0 %) 0.3 Nucleated RBC % (0 - 0 %) 0.0 Nucleated RBCs # (Man) (0.0 - 0.1 x10 3/uL) 0.00 Results: labs reviewed, vital signs reviewed, x-ray personally reviewed, current med profile rev'd Free Text Obj Notes Free Text Obj Notes: Physical Exam Gral appearance: up to chair, awake/alert, responds appropriately, RA Head/Eyes: atraumatic, EOMI, normocephalic, PERRLA ENT: normal pharynx, moist oral mucosa Neck: tender, no JVD, R surgical site, edges approximated, C/D. Cardiovascular: normal heart sounds, regular rate rhythm, no murmur Respiratory: aerating well, clear to auscultation, symmetric expansion, no distress Abdomen: non-tender, normal bowel sounds, soft, no distention Extremities: no edema, warm, no cyanosis Musculoskeletal: normal inspection Neuro/NEON PUMPER: awkae/alert, speech clear, nonfocal Diagnosis, Assessment Plan Diagnosis, Assessment Plan Problem list/A P: 1. AMS (altered mental status) 2. Uncontrolled diabetes mellitus 3. Hyperammonemic encephalopathy 4. Cirrhosis 5. RIGHT ICA STENOSIS 6. Cerebral infarction due to stenosis of right carotid artery Orders: Procedure Date/time Status AMMONIA 04/25 0500 Active AMMONIA 04/24 0500 Active AMMONIA 04/23 0500 Active AMMONIA 04/22 0500 Active AMMONIA 04/21 0500 Active Consultants: cardiovascular surgery, hospitalist Plan discussed with: patient, collaborating MD, nurse, interdisc care team, pharmacy/pharmacist Code Status/Resusc. Discussion Code status: full code Free text DxA P: 63/M admitted to CCU post R carotid endarterectomy. Plan: Monitor vital signs Close neurovascular checks Ammonia level downtrending, on lactulose 30 gm q6hr, rifaximin Hemoglobin 8.0. Monitor and transfuse accordingly. Monitor surgical site for bleeding/hematoma formation MAP > 65, he is currently on low dose levophed, will add midodrine 5mg PO TID, he received 50ml of 25% albumin this am. Monitor Aspirin/plavix per Vasc sx. Statin Keep Arterial line for now. Cont to monitor sats on room air. Monitor intake and creatinine. PRN lytes replacement. Diet as tolerated, encourage oral intake. IV gentle hydration Lactulose, Rifaximin Insulin adjusted for better glycemic control. HDISS, Glargine. OOB to chair as tolerated. DVT ppx: SCDs GI ppx: PPI Dispo: Home Code: Full code Appreciate your kind consult, will follow I spent 37 minutes of critical care reviewing labs, imaging and discussing plan of care with patient, nurse and ICC team. at 1331 RPT #:[id number] END OF REPORT [facility] 2024-04-19 16:37:00 [facility] ([facility]) DT Operative Note REPORT#:[id number] REPORT STATUS: Signed REPORT INITIALIZATION DATE:04/19/24 TIME: 1636 PATIENT: KEYLA LITTLE UNIT #: [id number] ROOM/BED: [place] [address] : 62 AGE: 63 SEX: M ATTEND: Vlad Couch MD ADM AUTHOR: Mukesh Martin Jr DO REPT SERVICE DT/TIME: 04/19/24 5126 * ALL edits or amendments must be made on the electronic/computer document * Operative Report Operative Note Note: Pre-procedure diagnosis: Symptomatic right side severe carotid stenosis Post-procedure diagnosis: same as pre procedure dx Procedures performed: 1. Right carotid endarterectomy with patch angioplasty and neuromonitoring 14143 Primary Surgeon: Dr. Mukesh Martin Servicenow Administrator Developer(s): JIM Pederson Anesthesia: general anesthesia Findings: -Atheromatous and soft plaque in the proximal ICA, completely removed -Low resistance waveform and prolonged diastolic antegrade flow on intraoperative duplex examination -Patient moving all four extremities post op, tongue straight Complications: none Estimated blood loss in ml's: 125cc Specimens removed/altered: Atheromatous plaque of proximal right ICA and distal CCA Indication for procedure: Patient is a 63-year-old male with multiple comorbidities including cirrhosis, esophageal varices, and recent right frontal stroke with severe right ICA stenosis. Recent diagnostic carotid angiogram showing 99% stenosis of the proximal ICA. Today the patient is going to the OR for right carotid endarterectomy with patch angioplasty. Risk and benefits of the procedure were discussed with the patient and his significant other and they have agreed to pursue sugical management. Procedure detail: After informed consent was obtained the patient was brought back to the operating room and laid on the table supine position. He underwent general anesthesia without any issues. Neuromonitoring devices were then placed. He received preoperative antibiotics. His right neck and upper chest were prepped and draped in the usual sterile fashion. A brief timeout was had to ensure proper patient, procedure, laterality. The procedure was began by making a longitudinal skin incision over the the anterior border of the right sternocleidomastoid muscle. The incision was then deepened through the platysma with electrocautery. The sternocleidomastoid was retracted laterally. The internal Jugular vein was identified and also retracted laterally. Dissection along the medial border of the internal jugular vein was then performed and the facial vein was identified and ligated using 2-0 silk sutures. The common carotid, and the internal carotid, the superior thyroid, and the external carotid arteries were exposed and dissected and controlled using Silastic Vesseloops. The vagus and hypoglossal nerves were identified and preserved. Traction over the angle of the mandible was avoided to protect the marginal mandibular nerve branch of the facial nerve. The ansa cervicalis was identified and preserved. At this point the patient was systemically heparinized and after 3 minutes of allowing the heparin circulate and ACT was checked. Once the ACT was greater than 250 the internal followed by the common followed by the external carotid arteries were clamped in this order. No neuromonitoring changes were noted immediately after crossclamping the internal carotid artery. An arteriotomy was performed on the anterior lateral surface of the common carotid artery with 11 blade scalpel and extended onto the internal carotid artery using Lr scissors. The endarterectomy plane was developed with a freer elevator. The plaque was transected proximally in the common carotid artery. In the distal internal carotid the plaque was feathered off, leaving a smooth endpoint. The patient endarterectomy of the external carotid artery was performed and the carotid plaque was removed. The endarterectomized surface was gently irrigated with heparinized saline and any free debris was removed with fine forceps. The distal endarterectomy endpoint was inspected. Four tacking stitches and simple interrupted fashion using 7-0 Prolene were placed to secure the distal intima. The arteriotomy was then closed using a patch with a running 5-0 Prolene suture. Prior to tying the last suture the internal carotid artery was flushed and reclamped. This was followed by unclamping of the external carotid artery and the common carotid artery. Flow was reestablished into the external carotid artery and then into the internal carotid artery. No neuromonitoring changes were noted. Duplex and Doppler intraoperative evaluation revealed excellent flow signals as well as a low resistance waveform past the distal aspect of the patch. The systemic heparin was then reversed with protamine. After achieving hemostasis the wound was irrigated using normal saline. It was then closed using 3-0 Vicryl for the platysma layer and soft tissues. 4-0 Monocryl was used for the skin in a subcuticular fashion. Dermabond was used to seal the skin. A sterile dressing was placed. This concluded the procedure. The patient tolerated the procedure well. All instrument, needle, sponge count were correct. The patient was awakened and was moving all 4 extremities. at 1710 RPT #:[id number] END OF REPORT [facility] 2024-04-19 16:34:00 [facility] ([facility]) Brief Op Note REPORT#:[id number] REPORT STATUS: Signed REPORT INITIALIZATION DATE:04/19/24 TIME: 1634 PATIENT: KEYLA LITTLE UNIT #: [id number] ROOM/BED: [place] [address] : 62 AGE: 63 SEX: M ATTEND: Vlad Couch MD ADM AUTHOR: Mukesh Martin Jr, DO REPT SERVICE DT/TIME: 04/19/24 1634 * ALL edits or amendments must be made on the electronic/computer document * Op/Inv Proc Note - Brief Pre-procedure diagnosis: Symptomatic right side severe carotid stenosis Post-procedure diagnosis: same as pre procedure dx Procedures performed: 1. Right carotid endarterectomy with patch angioplasty and neuromonitoring Primary Surgeon: Dr. Mukesh Martin Servicenow Administrator Developer(s): JIM Pederson Anesthesia: general anesthesia Findings: -Atheromatous and soft plaque in the proximal ICA, completely removed -Low resistance waveform and prolonged diastolic antegrade flow on intraoperative duplex examination Complications: none Estimated blood loss in ml's: 125cc Specimens removed/altered: Atheromatous plaque of proximal right ICA and distal CCA at 1637 RPT #:[id number] END OF REPORT [facility] 2024-04-19 12:31:00 [facility] ([facility]) Internal Medicine Prog. Note REPORT#:[id number] REPORT STATUS: Signed REPORT INITIALIZATION DATE:04/19/24 TIME: 1231 PATIENT: KEYLA LITTLE UNIT #: [id number] ROOM/BED: [place] [address] : 62 AGE: 63 SEX: M ATTEND: Vlad Couch MD ADM AUTHOR: Vlad Couch MD REPT SERVICE DT/TIME: 04/19/24 1231 * ALL edits or amendments must be made on the electronic/computer document * Review of Systems All systems rev neg: except as marked Objective Physical Exam Head/Eyes: atraumatic, EOMI, normocephalic, PERRLA ENT: normal pharynx Neck: non-tender, no JVD Cardiovascular: normal heart sounds, regular rate rhythm, no murmur Respiratory: aerating well, clear to auscultation, symmetric expansion, no distress Abdomen: non-tender, normal bowel sounds, soft, no distention Extremities: Extremities: no edema Musculoskeletal: normal inspection Neuro/NEON PUMPER: alert, oriented x 3 Diagnosis, Assessment Plan Problem List/A P: 1. Hyperammonemic encephalopathy 2. AMS (altered mental status) 3. Uncontrolled diabetes mellitus 4. Cirrhosis 5. RIGHT ICA STENOSIS 6. Acute hepatic encephalopathy Free Text DxA P Notes Free text DxA P notes: medications reviewed, continue same resume home meds activity as tolerates diet as tolerates plan for right CEA tomorrow per vascular cirrhosis mgmt extended hospital course due to issues with scheduling multiple procedures at 0034 RPT #:[id number] END OF REPORT [facility] 2024-04-18 21:32:00 [facility] ([facility]) Vascular Surgery Progress Note REPORT#:[id number] REPORT STATUS: Signed REPORT INITIALIZATION DATE:04/18/24 TIME: 2131 PATIENT: KEYLA LITTLE UNIT #: [id number] ROOM/BED: [place] [address] : 62 AGE: 63 SEX: M ATTEND: Vlad Couch MD ADM AUTHOR: Mukesh Martin Jr DO REPT SERVICE DT/TIME: 04/18/242131 * ALL edits or amendments must be made on the electronic/computer document * Subjective Chief complaint: Confused HPI no acute events overnight AFebrile, vital signs stable Still confused but mentation much more improved Answering simple questions and follows commands. Objective General VS/I O: Last Documented: Result Date Time Pulse Ox 100 04/18 1809 B/P 138/64 04/18 180 B/P Mean 88.3 04/18 1809 O2 Delivery Room air 08/05 1809 Temp 97.9 04/18 1809 Pulse 77 04/18 1809 Resp 16 04/18 1809 O2 Flow Rate 4 04/15 1132 24 hour I O ending at 0700: 04/18 0700 04/17 1900 Intake Total 650 Output Total Balance 650 Intake, Oral 650 Number 2 Bowel Movements PATIENT WEIGHT: Weight (lb): Weight (oz): Weight (kg): 81.818 General appearance: confused, alert, awake, no acute distress HEENT: anicteric, pupils reactive to light, sclera clear Neck: non-tender, no bruit/NL carotids, no JVD Cardiovascular: BP/pulses equal bilat., normal heart sounds, no murmur Respiratory: aerating well, clear to auscultation, no distress Abdomen: soft, non-tender, no distention Extremities: moves all Pulse assess: Vascular pulse assess: Palpated: R radial, L radial, R femoral, L femoral. Neuro/NEON PUMPER: disoriented, alert, CNII-XII intact Diagnosis, Assessment Plan Problem List/A P: 1. AMS (altered mental status) 2. RIGHT ICA STENOSIS 3. Cerebral infarction due to stenosis of right carotid artery 4. Acute hepatic encephalopathy Free Text A P: Patient seen and examined, labs and imaging reviewed Clinically the patient looks much improved compared to last week. Last week carotid angio showed near occlusion of the R proximal ICA, the R ICA is patent however severely stenotic MRI showing evidence of subacute stroke of right frontal lobe Discussed extensively with patients partner Shayna and sister regarding my recommendation for R CEA to prevent future major stroke Shayna is MPOA, she would like to proceed with surgical management. NPOpMN, obtain AM labs Rest of care per primary team and consultants Thank you for allowing me to be part of this patient's care at 2140 RPT #:[id number] END OF REPORT [facility] 2024-04-18 21:21:00 [id number] [address] PATIENT NAME: KEYLA LITTLE ADMIT DATE: 04/03/24 ACCOUNT NO: [id number] ROOM NO: G.[id number] AGE: 63 REPORT TYPE: eELECTROCARDIOGRAM REPORT SEX: M ADMITTING PHYSICIAN:Vlad Cuoch MD ATTENDING PHYSICIAN:Vlad Couch MD Order: [id number] Test Reason : preop Test Date/Time Stamp: ThuApr 18 2024 21:21:53 Blood Pressure : / mmHG Vent. Rate : 077 BPM Atrial Rate : 077 BPM P-R Int : 150 ms QRS Dur : 092 ms QT Int : 412 ms P-R-T Axes : 059 024 054 degrees QTc Int : 466 ms Normal sinus rhythm Normal ECG When compared with ECG of 03-APR-2024 09:24, No significant change was found Confirmed by RYAN JOHNSON MD ([id number]) on 04/19/2024 11:15:01 AM Referred By: Vlad Couch Confirmed by:PRISCILA JOHNSON MD at 1115 PATIENT NAME: KEYLA LITTLE [facility] 2024-04-18 08:25:00 [facility] Internal Medicine Prog. Note REPORT#:[id number] REPORT STATUS: Signed REPORT INITIALIZATION DATE:04/18/24 TIME: 824 PATIENT: KEYLA LITTLE UNIT #: [id number] ROOM/BED: [place] [address] : [birth year] AGE: 63 SEX: M ATTEND: Vlad Couch MD ADM AUTHOR: Vlad Couch MD REPT SERVICE DT/TIME: 04/18/24824 * ALL edits or amendments must be made on the electronic/computer document * Review of Systems All systems rev neg: except as marked Objective Physical Exam Head/Eyes: atraumatic, EOMI, normocephalic, PERRLA ENT: normal pharynx Neck: non-tender, no JVD Cardiovascular: normal heart sounds, regular rate rhythm, no murmur Respiratory: aerating well, clear to auscultation, symmetric expansion, no distress Abdomen: non-tender, normal bowel sounds, soft, no distention Extremities: Extremities: no edema Musculoskeletal: normal inspection Neuro/NEON PUMPER: alert, oriented x 3 Diagnosis, Assessment Plan Problem List/A P: 1. Hyperammonemic encephalopathy 2. AMS (altered mental status) 3. Uncontrolled diabetes mellitus 4. Cirrhosis 5. RIGHT ICA STENOSIS 6. Acute hepatic encephalopathy Free Text DxA P Notes Free text DxA P notes: medications reviewed, continue same resume home meds activity as tolerates diet as tolerates plan for right CEA tomorrow per vascular cirrhosis mgmt extended hospital course due to issues with scheduling multiple procedures at 1228 RPT #:[id number] END OF REPORT [facility] 2024-04-17 09:43:00 [facility] Internal Medicine Prog. Note REPORT#:[id number] REPORT STATUS: Signed REPORT INITIALIZATION DATE:04/17/24 TIME: 942 PATIENT: KELYA LITTLE UNIT #: [id number] ROOM/BED: [place] [address] : [birth year] AGE: 63 SEX: M ATTEND: Vlad Couch MD ADM AUTHOR: Vlad Couch MD REPT SERVICE DT/TIME: 04/17/24 09 * ALL edits or amendments must be made on the electronic/computer document * Review of Systems All systems rev neg: except as marked Objective Physical Exam Head/Eyes: atraumatic, EOMI, normocephalic, PERRLA ENT: normal pharynx Neck: non-tender, no JVD Cardiovascular: normal heart sounds, regular rate rhythm, no murmur Respiratory: aerating well, clear to auscultation, symmetric expansion, no distress Abdomen: non-tender, normal bowel sounds, soft, no distention Extremities: Extremities: no edema Musculoskeletal: normal inspection Neuro/NEON PUMPER: alert, oriented x 3 Diagnosis, Assessment Plan Problem List/A P: 1. Hyperammonemic encephalopathy 2. AMS (altered mental status) 3. Uncontrolled diabetes mellitus 4. Cirrhosis 5. RIGHT ICA STENOSIS 6. Acute hepatic encephalopathy Free Text DxA P Notes Free text DxA P notes: medications reviewed, continue same resume home meds activity as tolerates diet as tolerates plan for right CEA per vascular cirrhosis mgmt at 1227 RPT #:[id number] END OF REPORT [facility] 2024-04-16 10:29:00 [facility] Internal Medicine Prog. Note REPORT#:[id number] REPORT STATUS: Signed REPORT INITIALIZATION DATE:04/16/24 TIME: 102 PATIENT: KEYLA LITTLE UNIT #: [id number] [place] [facility] [place] [place] AGE: 63 SEX: M ATTEND: Vlad Couch MD ADM AUTHOR: Vlad Couch MD REPT SERVICE DT/TIME: 04/16/24 1029 * ALL edits or amendments must be made on the electronic/computer document * Review of Systems All systems rev neg: except as marked Objective Physical Exam Head/Eyes: atraumatic, EOMI, normocephalic, PERRLA ENT: normal pharynx Neck: non-tender, no JVD Cardiovascular: normal heart sounds, regular rate rhythm, no murmur Respiratory: aerating well, clear to auscultation, symmetric expansion, no distress Abdomen: non-tender, normal bowel sounds, soft, no distention Extremities: Extremities: no edema Musculoskeletal: normal inspection Neuro/NEON PUMPER: alert, oriented x 3 Diagnosis, Assessment Plan Problem List/A P: 1. Hyperammonemic encephalopathy 2. AMS (altered mental status) 3. Uncontrolled diabetes mellitus 4. Cirrhosis 5. RIGHT ICA STENOSIS 6. Acute hepatic encephalopathy Free Text DxA P Notes Free text DxA P notes: medications reviewed, continue same resume home meds activity as tolerates diet as tolerates plan for right CEA per vascular cirrhosis mgmt at 1326 RPT #:[id number] END OF REPORT [facility] 2024-04-15 14:39:00 [facility] ([facility]) Internal Medicine Prog. Note REPORT#:[id number] REPORT STATUS: Signed REPORT INITIALIZATION DATE:04/15/24 TIME: 1439 PATIENT: KEYLA LITTLE UNIT #: [id number] [address]BED[address] : [birth year] AGE: 63 SEX: M ATTEND: Vlad Couch MD ADM AUTHOR: Vlad Couch MD REPT SERVICE DT/TIME: 04/15/24 1439 * ALL edits or amendments must be made on the electronic/computer document * Review of Systems All systems rev neg: except as marked Objective Physical Exam Head/Eyes: atraumatic, EOMI, normocephalic, PERRLA ENT: normal pharynx Neck: non-tender, no JVD Cardiovascular: normal heart sounds, regular rate rhythm, no murmur Respiratory: aerating well, clear to auscultation, symmetric expansion, no distress Abdomen: non-tender, normal bowel sounds, soft, no distention Extremities: Extremities: no edema Musculoskeletal: normal inspection Neuro/NEON PUMPER: alert, oriented x 3 Diagnosis, Assessment Plan Problem List/A P: 1. Hyperammonemic encephalopathy 2. AMS (altered mental status) 3. Uncontrolled diabetes mellitus 4. Cirrhosis 5. RIGHT ICA STENOSIS 6. Acute hepatic encephalopathy Free Text DxA P Notes Free text DxA P notes: medications reviewed, continue same resume home meds activity as tolerates diet as tolerates plan for angiogram to eval right carotid stenosis at 1326 RPT #:[id number] END OF REPORT [facility] 2024-04-15 11:33:00 [facility] ([facility]) DT Operative Note REPORT#:[id number] REPORT STATUS: Signed REPORT INITIALIZATION DATE:04/15/24 TIME: 113 PATIENT: KEYLA LITTLE UNIT #: [id number] [place] [facility] [place] : 64 AGE: 63 SEX: M ATTEND: Vlad Couch MD ADM AUTHOR: Mukesh Martin Jr, DO REPT SERVICE DT/TIME: 04/15/24 1133 * ALL edits or amendments must be made on the electronic/computer document * Operative Report Operative Note Note: Pre-procedure diagnosis: Subacute right frontal stroke Right severe symptomatic internal carotid artery stenosis Post-procedure diagnosis: same as pre procedure dx Procedures performed: 1. Ultrasound-guided access of the right common femoral artery 98273 2. Selective catheterization of the innominate artery 20205 3. Selective catheterization of the subclavian artery with vertebral angiography 13372-38 4. Selective catheterization of the common carotid artery 02860 50 Primary Surgeon: Dr. Mukesh Martin Servicenow Administrator Developer(s): none Anesthesia: general anesthesia Findings: - The thoracic aorta is widely patent with no obvious orificial disease of the great vessels, the right innominate artery is widely patent given off the right carotid and right subclavian artery, the right vertebral and proximal subclavian arteries is widely patent -The right common carotid artery is widely patent, the right external carotid artery is widely patent, the right internal carotid artery is stenotic approximately 99% -The right ICA drains into the middle cerebral artery which shows patent branches of the middle cerebral artery distribution. -The origin of the left common carotid and left subclavian arteries are widely patent, the left common carotid and proximal left subclavian artery are widely patent, the left vertebral vertebral artery has a proximal 50% stenosis at the origin however widely patent distally with filling of the basilar artery and runoff into the [place] -The left t external carotid artery is widely patent, the left internal carotid artery is widely patent -The left ICA drains into the middle cerebral artery which shows patent branches of the middle cerebral artery distribution. Complications: none Estimated blood loss in ml's: 2cc Specimens removed/altered: none Indication for procedure: Patient is a 63-year-old male with multiple comorbidities including cirrhosis, esophageal varices, and recent right frontal stroke with severe right ICA stenosis. He was seen at an outside facility with no revascularization performed. Hospitalization at this admission was due to altered mental status and stroke workup revealed the patient had approximately a 99% stenosis possible occlusion on CTA however on ultrasound showed moderate stenosis. Patient go back today for diagnostic arteriogram possible stenting. If lesion not amenable to stenting we will plan for carotid endarterectomy Procedure in detail: After informed stenting from the patient will paternity the patient was brought back to the operating room and laid on table supine position. He underwent general anesthesia without any issues. He received preoperative antibiotics. A brief timeout was had to ensure proper patient, procedure, laterality. The operation was began by assessing the right common femoral artery which was noted to be widely patent on ultrasound with minimal anterior wall calcific disease. The right common femoral artery was then accessed using a micropuncture needle followed by micropuncture wire and a micropuncture sheath. A right groin angiogram was performed showing an appropriate vessel axis. A picture of the access was saved and placed in the patient's chart. The micropuncture wire was then removed and an 035 soft angled Glidewire was then advanced into the abdominal aorta under fluoroscopy. Over the wire a 6 Chinese sheath was placed. The patient was then systemically heparinized and after an ACT of 250 the aortic arch was then selected using a wire and glide catheter. Over the wire a flush catheter was then advanced and a thoracic aortogram was performed showing the above findings. Next the right brachial innominate artery was selected with the catheter followed by the right subclavian artery. An arteriogram at this level revealed a widely patent vertebral artery and proximal subclavian artery. The catheter was then retracted and the right carotid artery was selected. AP and lateral projections of the extracranial carotid artery was performed showing the above findings. In a similar fashion and AP and lateral projection of the right cerebral hemisphere was performed showing the above findings. Next the left subclavian artery was selected and from this level the an arteriogram was performed showing a patent left vertebral artery with approximately 50% stenosis at the origin. The catheter was then retracted and the left common carotid artery was selected and a arteriogram was performed of the extracranial left carotid artery in the AP and lateral projections showing the above findings. An AP and lateral projection was performed of the left cerebral hemisphere showing the above findings. At this time the procedure was concluded. All wires catheters and sheaths were removed. The right groin was closed with a 6 Chinese Angio-Seal was deployed appropriately. A 4 Monocryl was used to close the right access site and Dermabond was used to seal the skin. A pressure dressing was placed. This concluded the procedure. The patient tolerated the procedure well. All instrument, needle, sponge count were correct. Patient will undergo a planned right carotid endarterectomy early next week. at 1418 RPT #:[id number] END OF REPORT [facility] 2024-04-15 11:27:00 [facility] ([facility]) Brief Op Note REPORT#:[id number] REPORT STATUS: Signed REPORT INITIALIZATION DATE:04/15/24 TIME: 1126 PATIENT: KEYLA LITTLE UNIT #: [id number] ROOM/BED: [place] [address] : 62 AGE: 63 SEX: M ATTEND: Vlad Couch MD ADM AUTHOR: Mukesh Martin Jr, DO REPT SERVICE DT/TIME: 04/15/241126 * ALL edits or amendments must be made on the electronic/computer document * Op/Inv Proc Note - Brief Pre-procedure diagnosis: Subacute right frontal stroke Right severe symptomatic internal carotid artery stenosis Post-procedure diagnosis: same as pre procedure dx Procedures performed: 1. Ultrasound-guided access of the right common femoral artery 31101 2. Bilateral carotid arteriogram 3. Cerebral arteriogram Primary Surgeon: Dr. Mukesh Martin Servicenow Administrator Developer(s): none Anesthesia: general anesthesia Findings: - The thoracic aorta is widely patent with no obvious orificial disease of the great vessels, the right innominate artery is widely patent given off the right carotid and right subclavian artery, the right vertebral and proximal subclavian arteries is widely patent -The right common carotid artery is widely patent, the right external carotid artery is widely patent, the right internal carotid artery is stenotic approximately 99% -The right ICA drains into the middle cerebral artery which shows patent branches of the middle cerebral artery distribution. -The origin of the left common carotid and left subclavian arteries are widely patent, the left common carotid and proximal left subclavian artery are widely patent, the left vertebral vertebral artery has a proximal 50% stenosis at the origin however widely patent distally with filling of the basilar artery and runoff into the [place] -The left t external carotid artery is widely patent, the left internal carotid artery is widely patent -The left ICA drains into the middle cerebral artery which shows patent branches of the middle cerebral artery distribution. Complications: none Estimated blood loss in ml's: 2cc Specimens removed/altered: none at 1133 RPT #:[id number] END OF REPORT [facility] 2024-04-15 07:38:00 [facility] ([facility]) Gastroenterology Progress Note REPORT#:[id number] REPORT STATUS: Signed REPORT INITIALIZATION DATE:04/15/24 TIME: 737 PATIENT: KEYLA LITTLE UNIT #: [id number] ROOM/BED: [place] [address] : 62 AGE: 63 SEX: M ATTEND: Vlad Couch MD ADM AUTHOR: Dolly Collier MD REPT SERVICE DT/TIME: 04/15/24 07 * ALL edits or amendments must be made on the electronic/computer document * Subjective Chief complaint: High ammonia HPI: 63 year old man with hx of cirrhosis who was hospitalized with encephalopathy. Upon the encounter pt mental status seems to have improved. Pt reports knowing about cirrhosis for a while. Not being managed. No alcohol intake. Etiology of cirrhosis in not clear. 04/06: still confused. RUQ U/S pending 04/07: MRI showed subacute infarct in the brain. Right upper quad ultrasound showed evidence of TIPS. No liver masses. 04/08: moving bowels. Still confused. Ammonia trending up 04/09: HE grade 2, Ammonia 135, cont lactulose and xifaxin 04/10: ammonia coming down mental status improving 04/11: Mental status better. 04/12: No change. Mental status improving. He is having 3-4 bowel movements a day on lactulose 04/13: No complaints. Oriented 04/14: Mental status improved. Getting neuro work-up 04/15: No new events. Objective Physical Exam HEENT: anicteric Cardiovascular: normal heart sounds Respiratory: clear to auscultation Abdomen: non-tender Extremities: no edema Diagnosis, Assessment Plan Problem List/A P: 1. Herpetic encephalitis 2. Cirrhosis Free Text A P: Right upper quadrant ultrasound showed evidence of cirrhosis without liver mass. Presence of TIPS. No ascites. Patient now has subacute infarcts. Neurology on board. Ammonia trending up and still confused however better. C/W lactulose and Rifaximin. Would avoid trending Ammonia. Goal of 3 bowel movements a day. Avoid benzos and opioids Will sign off. at 0739 RPT #:[id number] END OF REPORT [facility] 2024-04-14 16:51:00 [facility] ([facility] Gastroenterology Progress Note REPORT#:[id number] REPORT STATUS: Signed REPORT INITIALIZATION DATE:04/14/24 TIME: 1650 PATIENT: KEYLA LITTLE UNIT #: [id number] ROOM/BED: [place] [address] : 62 AGE: 63 SEX: M ATTEND: Vlad Couch MD ADM AUTHOR: Dolly Collier MD REPT SERVICE DT/TIME: 04/14/241650 * ALL edits or amendments must be made on the electronic/computer document * Subjective Chief complaint: High ammonia HPI: 63 year old man with hx of cirrhosis who was hospitalized with encephalopathy. Upon the encounter pt mental status seems to have improved. Pt reports knowing about cirrhosis for a while. Not being managed. No alcohol intake. Etiology of cirrhosis in not clear. 04/06: still confused. RUQ U/S pending 04/07: MRI showed subacute infarct in the brain. Right upper quad ultrasound showed evidence of TIPS. No liver masses. 04/08: moving bowels. Still confused. Ammonia trending up 04/09: HE grade 2, Ammonia 135, cont lactulose and xifaxin 04/10: ammonia coming down mental status improving 04/11: Mental status better. 04/12: No change. Mental status improving. He is having 3-4 bowel movements a day on lactulose 04/13: No complaints. Oriented 04/14: Mental status improved. Getting neuro work-up Objective Physical Exam HEENT: anicteric Cardiovascular: normal heart sounds Respiratory: clear to auscultation Abdomen: non-tender Extremities: no edema Diagnosis, Assessment Plan Problem List/A P: 1. Herpetic encephalitis 2. Cirrhosis Free Text A P: Right upper quadrant ultrasound showed evidence of cirrhosis without liver mass. Presence of TIPS. No ascites. Patient now has subacute infarcts. Neurology on board. Ammonia trending up and still confused however better. C/W lactulose and Rifaximin. Would avoid trending Ammonia. Goal of 3 bowel movements a day. Avoid benzos and opioids Will follow at 1652 RPT #:[id number] END OF REPORT [facility] 2024-04-14 09:59:00 [facility] Internal Medicine Prog. Note REPORT#:[id number] REPORT STATUS: Signed REPORT INITIALIZATION DATE:04/14/24 TIME: 958 PATIENT: KEYLA LITTLE UNIT #: [id number] ROOM/BED: [place] [address] : 62 AGE: 63 SEX: M ATTEND: Vlad Couch MD ADM AUTHOR: Vlad Couch MD REPT SERVICE DT/TIME: 04/14/24 0959 * ALL edits or amendments must be made on the electronic/computer document * Subjective Free Text Subj Notes Free Text Subj Notes: overall stable Review of Systems All systems rev neg: except as marked Objective Physical Exam Head/Eyes: atraumatic, EOMI, normocephalic, PERRLA ENT: normal pharynx Neck: non-tender, no JVD Cardiovascular: normal heart sounds, regular rate rhythm, no murmur Respiratory: aerating well, clear to auscultation, symmetric expansion, no distress Abdomen: non-tender, normal bowel sounds, soft, no distention Extremities: Extremities: no edema Musculoskeletal: normal inspection Neuro/NEON PUMPER: alert, oriented x 3 Diagnosis, Assessment Plan Problem List/A P: 1. Hyperammonemic encephalopathy 2. AMS (altered mental status) 3. Uncontrolled diabetes mellitus 4. Cirrhosis 5. RIGHT ICA STENOSIS 6. Acute hepatic encephalopathy Free Text DxA P Notes Free text DxA P notes: medications reviewed, continue same resume home meds activity as tolerates diet as tolerates plan for angiogram tomorrow to eval right carotid stenosis at 1301 RPT #:[id number] END OF REPORT [facility] 2024-04-13 09:20:00 [facility] Internal Medicine Prog. Note REPORT#:[id number] REPORT STATUS: Signed REPORT INITIALIZATION DATE:04/13/24 TIME: 919 PATIENT: KEYLA LITTLE UNIT #: [id number] ROOM/BED: [place] [address] : 62 AGE: 63 SEX: M ATTEND: Vlad Couch MD ADM AUTHOR: Vlad Couch MD REPT SERVICE DT/TIME: 04/13/24919 * ALL edits or amendments must be made on the electronic/computer document * Review of Systems All systems rev neg: except as marked Objective Physical Exam Head/Eyes: atraumatic, EOMI, normocephalic, PERRLA ENT: normal pharynx Neck: non-tender, no JVD Cardiovascular: normal heart sounds, regular rate rhythm, no murmur Respiratory: aerating well, clear to auscultation, symmetric expansion, no distress Abdomen: non-tender, normal bowel sounds, soft, no distention Extremities: Extremities: no edema Musculoskeletal: normal inspection Neuro/NEON PUMPER: alert, oriented x 3 Diagnosis, Assessment Plan Problem List/A P: 1. Hyperammonemic encephalopathy 2. AMS (altered mental status) 3. Uncontrolled diabetes mellitus 4. Cirrhosis 5. RIGHT ICA STENOSIS 6. Acute hepatic encephalopathy Free Text DxA P Notes Free text DxA P notes: medications reviewed, continue same resume home meds activity as tolerates diet as tolerates d/w patients SO, recently at [facility] with CVA and had angiogram done [place] right carotid artery stenosis, d/w vascular and will review records at 1752 RPT #:[id number] END OF REPORT [facility] 2024-04-13 08:11:00 [facility] ([facility] Gastroenterology Progress Note REPORT#:[id number] REPORT STATUS: Signed REPORT INITIALIZATION DATE:04/13/24 TIME: 810 PATIENT: KEYLA LITTLE UNIT #: [id number] ROOM/BED: [id number] : 62 AGE: 63 SEX: M ATTEND: Vlad Couch MD ADM AUTHOR: Dolly Collier MD REPT SERVICE DT/TIME: 04/13/24 0811 * ALL edits or amendments must be made on the electronic/computer document * Subjective Chief complaint: High ammonia HPI: 63 year old man with hx of cirrhosis who was hospitalized with encephalopathy. Upon the encounter pt mental status seems to have improved. Pt reports knowing about cirrhosis for a while. Not being managed. No alcohol intake. Etiology of cirrhosis in not clear. 04/06: still confused. RUQ U/S pending 04/07: MRI showed subacute infarct in the brain. Right upper quad ultrasound showed evidence of TIPS. No liver masses. 04/08: moving bowels. Still confused. Ammonia trending up 04/09: HE grade 2, Ammonia 135, cont lactulose and xifaxin 04/10: ammonia coming down mental status improving 04/11: Mental status better. 04/12: No change. Mental status improving. He is having 3-4 bowel movements a day on lactulose 04/13: No complaints. Oriented Objective Physical Exam HEENT: anicteric Cardiovascular: normal heart sounds Respiratory: clear to auscultation Abdomen: non-tender Extremities: no edema Diagnosis, Assessment Plan Problem List/A P: 1. Herpetic encephalitis 2. Cirrhosis Free Text A P: Right upper quadrant ultrasound showed evidence of cirrhosis without liver mass. Presence of TIPS. No ascites. Patient now has subacute infarcts. Neurology on board. Ammonia trending up and still confused however better. C/W lactulose and Rifaximin. Would avoid trending Ammonia. Goal of 3 bowel movements a day. Avoid benzos and opioids Will follow at 0811 RPT #:[id number] END OF REPORT [facility] 2024-04-12 17:50:00 [facility] ([facility] Gastroenterology Progress Note REPORT#:[id number] REPORT STATUS: Signed REPORT INITIALIZATION DATE:04/12/24 TIME: 1749 PATIENT: KEYLA LITTLE UNIT #: [id number] ROOM/BED: [place] [address] : 62 AGE: 63 SEX: M ATTEND: Vlad Couch MD ADM AUTHOR: Dolly Collier MD REPT SERVICE DT/TIME: 04/12/24 1750 * ALL edits or amendments must be made on the electronic/computer document * Subjective Chief complaint: High ammonia HPI: 63 year old man with hx of cirrhosis who was hospitalized with encephalopathy. Upon the encounter pt mental status seems to have improved. Pt reports knowing about cirrhosis for a while. Not being managed. No alcohol intake. Etiology of cirrhosis in not clear. 04/06: still confused. RUQ U/S pending 04/07: MRI showed subacute infarct in the brain. Right upper quad ultrasound showed evidence of TIPS. No liver masses. 04/08: moving bowels. Still confused. Ammonia trending up 04/09: HE grade 2, Ammonia 135, cont lactulose and xifaxin 04/10: ammonia coming down mental status improving 04/11: Mental status better. 04/12: No change. Mental status improving. He is having 3-4 bowel movements a day on lactulose Objective Physical Exam HEENT: anicteric Cardiovascular: normal heart sounds Respiratory: clear to auscultation Abdomen: non-tender Extremities: no edema Diagnosis, Assessment Plan Problem List/A P: 1. Herpetic encephalitis 2. Cirrhosis Free Text A P: Right upper quadrant ultrasound showed evidence of cirrhosis without liver mass. Presence of TIPS. No ascites. Patient now has subacute infarcts. Neurology on board. Ammonia trending up and still confused however better. C/W lactulose and Rifaximin. Would avoid trending Ammonia. Goal of 3 bowel movements a day. Avoid benzos and opioids Will follow at 1827 RPT #:[id number] END OF REPORT [facility] 2024-04-12 10:04:00 [facility] Internal Medicine Prog. Note REPORT#:[id number] REPORT STATUS: Signed REPORT INITIALIZATION DATE:04/12/24 TIME: 1004 PATIENT: KEYLA LITTLE UNIT #: [id number] ROOM/BED: [place] [address] : 62 AGE: 63 SEX: M ATTEND: Vlad Couch MD ADM AUTHOR: Vlad Couch MD REPT SERVICE DT/TIME: 04/12/24 1004 * ALL edits or amendments must be made on the electronic/computer document * Subjective Free Text Subj Notes Free Text Subj Notes: overall stable Review of Systems All systems rev neg: except as marked Objective Physical Exam Head/Eyes: atraumatic, EOMI, normocephalic, PERRLA ENT: normal pharynx Neck: non-tender, no JVD Cardiovascular: normal heart sounds, regular rate rhythm, no murmur Respiratory: aerating well, clear to auscultation, symmetric expansion, no distress Abdomen: non-tender, normal bowel sounds, soft, no distention Extremities: Extremities: no edema Musculoskeletal: normal inspection Neuro/NEON PUMPER: alert, oriented x 3 Diagnosis, Assessment Plan Problem List/A P: 1. Hyperammonemic encephalopathy 2. AMS (altered mental status) 3. Uncontrolled diabetes mellitus 4. Cirrhosis 5. RIGHT ICA STENOSIS 6. Acute hepatic encephalopathy Free Text DxA P Notes Free text DxA P notes: medications reviewed, continue same resume home meds activity as tolerates diet as tolerates await angiogram neck per vascular - will discuss need for inaptient vs outpatient continue asa/plavix no need to trend ammonia supportive care at 1240 RPT #:[id number] END OF REPORT [facility] 2024-04-11 13:13:00 [facility] ([facility]) Vascular Surgery Progress Note REPORT#:[id number] REPORT STATUS: Signed REPORT INITIALIZATION DATE:04/11/24 TIME: 131 PATIENT: KEYLA LITTLE UNIT #: [id number] ROOM/BED: [place] [address] : 62 AGE: 63 SEX: M ATTEND: Vlad Couch MD ADM AUTHOR: Mukesh Martin Jr, DO REPT SERVICE DT/TIME: 04/11/24 1313 * ALL edits or amendments must be made on the electronic/computer document * Subjective Chief complaint: Confused HPI No acute events overnight afebrile vital signs stable Patient much more coherent answering questions appropriately Objective General VS/I O: Last Documented: Result Date Time Pulse Ox 100 04/11 1054 B/P 117/60 04/11 1054 B/P Mean 78.9 04/11 1054 Temp 97.9 04/11 1054 Pulse 69 04/11 1054 Resp 16 04/11 1054 O2 Delivery Room air 04/11 0354 PATIENT WEIGHT: Weight (lb): Weight (oz): Weight (kg): 81.818 General appearance: alert, awake, oriented, no acute distress HEENT: anicteric, pupils reactive to light, sclera clear Neck: non-tender, no bruit/NL carotids, no JVD Cardiovascular: BP/pulses equal bilat., normal heart sounds, no murmur Respiratory: aerating well, clear to auscultation, no distress Abdomen: soft, non-tender, no distention Extremities: moves all Pulse assess: Vascular pulse assess: Palpated: R radial, L radial, R femoral, L femoral. Neuro/NEON PUMPER: altered mental status, disoriented Psychiatry: normal affect, normal judgment/insight, normal mood Diagnosis, Assessment Plan Problem List/A P: 1. AMS (altered mental status) 2. RIGHT ICA STENOSIS Free Text A P: Patient seen and examined, labs and imaging reviewed Patient with severe right carotid stenosis on CTA and moderate stenosis on ultrasonography in the setting of a subacute right frontal lobe infarction. Patient with concomitant metabolic encephalopathy. Encephalopathy much more improved patient is awake alert and oriented x 3 Carotid duplex obtained showing moderate stenosis of the right ICA which is incongruent with the CTA severe stenosis Will plan for carotid angiogram pending OR availability will then discuss with patient and fianc revascularization options. Will continue to follow Rest of care per primary team and consultants Thank you for allowing me to be part of this patient's care at 1315 RPT #:[id number] END OF REPORT [facility] 2024-04-11 13:06:00 [facility] Gastroenterology Progress Note REPORT#:[id number] REPORT STATUS: Signed REPORT INITIALIZATION DATE:04/11/24 TIME: 1306 PATIENT: KEYLA LITTLE UNIT #: [id number] ROOM/BED: [place] [address] : 62 AGE: 63 SEX: M ATTEND: Vlad Couch MD ADM AUTHOR: Dolly Collier MD REPT SERVICE DT/TIME: 04/11/24 1306 * ALL edits or amendments must be made on the electronic/computer document * Subjective Chief complaint: High ammonia HPI: 63 year old man with hx of cirrhosis who was hospitalized with encephalopathy. Upon the encounter pt mental status seems to have improved. Pt reports knowing about cirrhosis for a while. Not being managed. No alcohol intake. Etiology of cirrhosis in not clear. 04/06: still confused. RUQ U/S pending 04/07: MRI showed subacute infarct in the brain. Right upper quad ultrasound showed evidence of TIPS. No liver masses. 04/08: moving bowels. Still confused. Ammonia trending up 04/09: HE grade 2, Ammonia 135, cont lactulose and xifaxin 04/10: ammonia coming down mental status improving 04/11: Mental status better. Objective Physical Exam HEENT: anicteric Cardiovascular: normal heart sounds Respiratory: clear to auscultation Abdomen: non-tender Extremities: no edema Diagnosis, Assessment Plan Problem List/A P: 1. Herpetic encephalitis 2. Cirrhosis Free Text A P: Right upper quadrant ultrasound showed evidence of cirrhosis without liver mass. Presence of TIPS. No ascites. Patient now has subacute infarcts. Neurology on board. Ammonia trending up and still confused however better. C/W lactulose and Rifaximin. Would avoid trending Ammonia. Goal of 3 bowel movements a day. Avoid benzos and opioids Will follow at 1307 RPT #:[id number] END OF REPORT [facility] 2024-04-11 12:30:00 [facility] Internal Medicine Prog. Note REPORT#:[id number] REPORT STATUS: Signed REPORT INITIALIZATION DATE:04/11/24 TIME: 1230 PATIENT: KEYLA LITTLE UNIT #: [id number] ROOM/BED: [place] [address] : 62 AGE: 63 SEX: M ATTEND: Vlad Couch MD ADM AUTHOR: Vlad Couch MD REPT SERVICE DT/TIME: 04/11/24 1230 * ALL edits or amendments must be made on the electronic/computer document * Subjective Free Text Subj Notes Free Text Subj Notes: overall improved Review of Systems All systems rev neg: except as marked Objective Physical Exam Head/Eyes: atraumatic, EOMI, normocephalic, PERRLA ENT: normal pharynx Neck: non-tender, no JVD Cardiovascular: normal heart sounds, regular rate rhythm, no murmur Respiratory: aerating well, clear to auscultation, symmetric expansion, no distress Abdomen: non-tender, normal bowel sounds, soft, no distention Extremities: Extremities: no edema Musculoskeletal: normal inspection Neuro/NEON PUMPER: alert, oriented x 3 Diagnosis, Assessment Plan Problem List/A P: 1. Hyperammonemic encephalopathy 2. AMS (altered mental status) 3. Uncontrolled diabetes mellitus 4. Cirrhosis 5. RIGHT ICA STENOSIS 6. Acute hepatic encephalopathy Free Text DxA P Notes Free text DxA P notes: medications reviewed, continue same resume home meds activity as tolerates diet as tolerates await angiogram neck per vascular continue asa/plavix no need to trend ammonia supportive care at 1230 RPT #:[id number] END OF REPORT [facility] 2024-04-10 13:37:00 [facility] Hospitalist Progress Note REPORT#:[id number] REPORT STATUS: Signed REPORT INITIALIZATION DATE:04/10/24 TIME: 1336 PATIENT: KEYLA LITTLE UNIT #: [id number] ROOM/BED: [place] [address] : 62 AGE: 63 SEX: M ATTEND: Vlad Couch MD ADM AUTHOR: Ca Allison MD REPT SERVICE DT/TIME: 04/10/24 1337 * ALL edits or amendments must be made on the electronic/computer document * Subjective Chief complaint: more awake Breathing is stable. Not in distress. BP and HR stable. Review of Systems All systems rev neg: except as noted Objective General VS/I O: Vital Signs: Date Time Temp Pulse Resp B/P B/P Pulse O2 O2 Flow FiO2 Mean Ox Delivery Rate 04/10 1107 98.1 84 15 152/68 96.1 99 04/10 0707 97.7 76 15 139/65 89.3 99 04/10 0448 97.7 82 14 155/67 96.4 98 Room air 04/09 2348 97.9 82 14 148/68 94.7 98 Room air 04/09 1904 97.7 88 14 154/70 98.4 97 Room air 04/09 1622 97.5 85 16 134/56 81.9 100 PATIENT WEIGHT: Weight (lb): Weight (oz): Weight (kg): 81.818 Physical Exam Head/Eyes: atraumatic, normocephalic, PERRLA Cardiovascular: normal capillary refill, normal heart sounds, regular rate rhythm Respiratory: aerating well, symmetric expansion, no distress Abdomen: non-tender, normal bowel sounds Genitourinary: no flank pain, no urinary catheter Extremities: no clubbing, no cyanosis Musculoskeletal: no muscle spasm Results Findings/Data: Laboratory Tests 04/10 04/10 04/10 04/10 04/09 1038 0704 045 0453 1902 Chemistry Sodium (134 - 147 mEq/L) 143 Potassium (3.4 - 5.0 mEq/L) 3.7 Chloride (100 - 108 mEq/L) 111 H Carbon Dioxide (21 - 33 mEq/l) 28 Anion Gap (0 - 20) 8 BUN (7 - 25 mg/dL) 10 Creatinine (0.6 - 1.3 mg/dL) 1.0 Glomerular Filtr Rate (80 - 90) 85.6 Glucose (77 - 141 mg/dL) 127 POC Glucose (70 - 110 MG/DL) 230 H 146 H 132 H Calcium (8.0 - 10.5 mg/dL) 9.2 Phosphorus (2.5 - 4.9 MG/DL) 3.6 Total Bilirubin (0.0 - 1.0 mg/dL) 0.90 AST (8 - 34 IUnit/L) 73 H ALT (10 - 49 IUnit/L) 84 H Total Alk Phosphatase (20 - 125 IUnit/L) 105 Ammonia (11 - 35 umol/L) 99 H Total Protein (6.4 - 8.2 g/dL) 7.2 Albumin (3.4 - 5.0 g/dL) 3.10 L 04/09 1618 Chemistry POC Glucose (70 - 110 MG/DL) 164 H Laboratory Tests 04/10 0450 Hematology WBC (4.5 - 11.0 x10 3/uL) 4.7 RBC (4.00 - 5.60 x10 6/uL) 4.24 Hgb (12.5 - 16.9 g/dL) 10.7 L Hct (37.5 - 50.7 %) 33.9 L MCV (81.0 - 99.0 fL) 80.0 L MCH (27.0 - 33.0 pg) 25.2 L MCHC (33.0 - 37.0 g/dL) 31.6 L RDW (11.5 - 14.5 %) 19.0 H Plt Count (150 - 400 x10 3/uL) 110 L MPV (7.0 - 9.0 fL) 10.7 H Neut % (Auto) (56.0 - 77.0 %) 52.4 L Lymph % (Auto) (14.0 - 32.0 %) 33.1 H Crawford % (Auto) (4.8 - 9.0 %) 11.5 H Eos % (Auto) (0.3 - 3.7 %) 1.9 Baso % (Auto) (0.0 - 2.0 %) 1.1 Neut # (Auto) (2.0 - 7.6 x10 3/uL) 2.45 Lymph # (Auto) (1.0 - 3.8 x10 3/uL) 1.55 Crawford # (Auto) (0.1 - 0.8 x10 3/uL) 0.54 Eos # (Auto) (0.0 - 0.2 x10 3/uL) 0.09 Baso # (Auto) (0.0 - 0.2 x10 3/uL) 0.05 Abs Immat Gran (auto) (0.00 - 0.03 x10 3/uL) 0.00 Immature Gran % (0.0 - 2.0 %) 0.0 Nucleated RBC % (0 - 0 %) 0.0 Nucleated RBCs # (Man) (0.0 - 0.1 x10 3/uL) 0.00 Results: labs reviewed, vital signs reviewed Diagnosis, Assessment Plan Problem List/A P: 1. Hyperammonemic encephalopathy 2. AMS (altered mental status) 3. Uncontrolled diabetes mellitus 4. Cirrhosis 5. RIGHT ICA STENOSIS 6. Acute hepatic encephalopathy Free Text DxA P Notes Free text DxA P notes: Plan: Floor. Monitor Neuro status. lactulose and xifaxin Replace electrolytes Avoid sedative. Antiemetics. Follow labs and replace as needed. Continue home meds. Monitor. at 1337 RPT #:[id number] END OF REPORT [facility] 2024-04-10 12:58:00 [facility] ([facility] Gastroenterology Progress Note REPORT#:[id number] REPORT STATUS: Signed REPORT INITIALIZATION DATE:04/10/24 TIME: 1257 PATIENT: KEYLA LITTLE UNIT #: [id number] ROOM/BED: [place] [id number] : [birth year] AGE: 63 SEX: M ATTEND: Vlad Couch MD ADM AUTHOR: Dolly Collier MD REPT SERVICE DT/TIME: 04/10/24 1258 * ALL edits or amendments must be made on the electronic/computer document * Subjective Chief complaint: High ammonia HPI: 63 year old man with hx of cirrhosis who was hospitalized with encephalopathy. Upon the encounter pt mental status seems to have improved. Pt reports knowing about cirrhosis for a while. Not being managed. No alcohol intake. Etiology of cirrhosis in not clear. 04/06: still confused. RUQ U/S pending 04/07: MRI showed subacute infarct in the brain. Right upper quad ultrasound showed evidence of TIPS. No liver masses. 04/08: moving bowels. Still confused. Ammonia trending up 04/09: HE grade 2, Ammonia 135, cont lactulose and xifaxin 04/10: ammonia coming down mental status improving Objective Physical Exam HEENT: anicteric Cardiovascular: normal heart sounds Respiratory: clear to auscultation Abdomen: non-tender Extremities: no edema Diagnosis, Assessment Plan Problem List/A P: 1. Herpetic encephalitis 2. Cirrhosis Free Text A P: Right upper quadrant ultrasound showed evidence of cirrhosis without liver mass. Presence of TIPS. No ascites. Patient now has subacute infarcts. Neurology on board. Ammonia trending up and still confused however better. C/W lactulose and Rifaximin. Would avoid trending Ammonia. Goal of 3 bowel movements a day. Avoid benzos and opioids Will follow at 1405 RPT #:[id number] END OF REPORT [facility] 2024-04-09 13:26:00 [facility] ([facility] Gastroenterology Progress Note REPORT#:[id number] REPORT STATUS: Signed REPORT INITIALIZATION DATE:04/09/24 TIME: 1325 PATIENT: KEYLA LITTLE UNIT #: [id number] ROOM/BED: [place] [address] : [birth year] AGE: 63 SEX: M ATTEND: Vlad Couch MD ADM AUTHOR: Chelly Cerrato [employer] MANAGER REPT SERVICE DT/TIME: 04/09/24 1326 * ALL edits or amendments must be made on the electronic/computer document * Chelly Cerrato 04/09/24 1326: Subjective Chief complaint: High ammonia HPI: 63 year old man with hx of cirrhosis who was hospitalized with encephalopathy. Upon the encounter pt mental status seems to have improved. Pt reports knowing about cirrhosis for a while. Not being managed. No alcohol intake. Etiology of cirrhosis in not clear. 04/06: still confused. RUQ U/S pending 04/07: MRI showed subacute infarct in the brain. Right upper quad ultrasound showed evidence of TIPS. No liver masses. 04/08: moving bowels. Still confused. Ammonia trending up 04/09: HE grade 2, Ammonia 135, cont lactulose and xifaxin Review of Systems Unable to obtain due to: AMS Objective General VS/I O: Last Documented: Result Date Time Pulse Ox 100 04/09 1110 B/P 132/69 04/09 1110 B/P Mean 90.1 04/09 1110 Temp 97.7 04/09 1110 Pulse 78 04/09 1110 Resp 16 04/09 1110 O2 Delivery Room air 04/07 0428 PATIENT WEIGHT: Weight (lb): Weight (oz): Weight (kg): 81.818 Medications: Active Meds + DC'd Last 24 Hrs Lactulose (LACTULOSE) 200 GM ONCE ONE RECTAL (DC) Sodium Chloride (SODIUM CHLORIDE IRRIG BAG) 700 ML Lactulose (LACTULOSE) 30 GM Q6HR PO Clopidogrel Bisulfate (Plavix) 75 MG DAILY PO Sodium Chloride (SODIUM CHLORIDE) 0 ASDIR PRN IV Sodium Chloride (SODIUM CHLORIDE) 0 ASDIR PRN IV Insulin Glargine (Semglee) 15 UNIT BID SUBQ Folic Acid (FOLIC ACID) 1 MG DAILY PO Metformin HCl (GLUCOPHAGE) 500 MG C BK PO Atorvastatin Calcium (LIPITOR) 20 MG BEDTIME PO Pantoprazole (PROTONIX) 40 MG BID PO Rifaximin (XIFaxan) 550 MG BID PO Dextrose/Water (DEXTROSE 10% IN WATER) 125 ML ASDIR PRN IV (CKD) Dextrose/Water (DEXTROSE 10% IN WATER) 250 ML ASDIR PRN IV (CKD) Glucagon (GLUCAGON) 1 MG ASDIR PRN IM Hydralazine HCl (APRESOLINE) 10 MG Q6H PRN PRN IV Insulin Human Lispro (HUMALOG) 0 AC HS SUBQ Acetaminophen (TYLENOL) 650 MG Q4H PRN PRN PO Al Hydrox/Mg Hydrox/Simethicone (MYLANTA) 30 ML Q4H PRN PRN PO Docusate Sodium (COLACE) 100 MG BID PRN PRN PO Ondansetron HCl (ZOFRAN) 4 MG Q4H PRN PRN IV Physical Exam General appearance: confused, awake HEENT: anicteric Cardiovascular: normal heart sounds Respiratory: clear to auscultation Abdomen: non-tender Extremities: no edema Results Findings/Data: Laboratory Tests 04/09/24 0600: [Embedded Image Not Available] Laboratory Tests 04/09 04/09 04/09 04/09 04/08 1120 0729 06 062014 Chemistry Sodium (134 - 147 mEq/L) 143 Potassium (3.4 - 5.0 mEq/L) 3.6 Chloride (100 - 108 mEq/L) 111 H Carbon Dioxide (21 - 33 mEq/l) 25 Anion Gap (0 - 20) 11 BUN (7 - 25 mg/dL) 10 Creatinine (0.6 - 1.3 mg/dL) 0.9 Glomerular Filtr Rate (80 - 90) 97.2 H Glucose (77 - 141 mg/dL) 146 H POC Glucose (70 - 110 MG/DL) 180 H 171 H 166 H Calcium (8.0 - 10.5 mg/dL) 9.2 Total Bilirubin (0.0 - 1.0 mg/dL) 0.70 AST (8 - 34 IUnit/L) 66 H ALT (10 - 49 IUnit/L) 76 H Total Alk Phosphatase (20 - 125 IUnit/L) 97 Ammonia (11 - 35 umol/L) 135 H Total Protein (6.4 - 8.2 g/dL) 6.8 Albumin (3.4 - 5.0 g/dL) 3.10 L 04/08 1711 Chemistry POC Glucose (70 - 110 MG/DL) 112 H Laboratory Tests 04/09 0600 Hematology WBC (4.5 - 11.0 x10 3/uL) 3.4 L RBC (4.00 - 5.60 x10 6/uL) 3.98 L Hgb (12.5 - 16.9 g/dL) 10.1 L Hct (37.5 - 50.7 %) 32.0 L MCV (81.0 - 99.0 fL) 80.4 L MCH (27.0 - 33.0 pg) 25.4 L MCHC (33.0 - 37.0 g/dL) 31.6 L RDW (11.5 - 14.5 %) 19.0 H Plt Count (150 - 400 x10 3/uL) 92 L MPV (7.0 - 9.0 fL) 11.0 H Neut % (Auto) (56.0 - 77.0 %) 45.2 L Lymph % (Auto) (14.0 - 32.0 %) 38.7 H Crawford % (Auto) (4.8 - 9.0 %) 12.3 H Eos % (Auto) (0.3 - 3.7 %) 2.6 Baso % (Auto) (0.0 - 2.0 %) 1.2 Neut # (Auto) (2.0 - 7.6 x10 3/uL) 1.54 L Lymph # (Auto) (1.0 - 3.8 x10 3/uL) 1.32 Crawford # (Auto) (0.1 - 0.8 x10 3/uL) 0.42 Eos # (Auto) (0.0 - 0.2 x10 3/uL) 0.09 Baso # (Auto) (0.0 - 0.2 x10 3/uL) 0.04 Abs Immat Gran (auto) (0.00 - 0.03 x10 3/uL) 0.00 Immature Gran % (0.0 - 2.0 %) 0.0 Nucleated RBC % (0 - 0 %) 0.0 Nucleated RBCs # (Man) (0.0 - 0.1 x10 3/uL) 0.00 Platelet Estimate (ADEQUATE THOUSAND) 92-115 Immature Plt Fraction (0.9 - 11.2 %) 3.2 Radiology Data: Recent Impressions: ULTRASOUND - DUP EXTRACRANIAL VALENTIN 04/08 1536 Report Impression - Status: SIGNED Entered: 04/08/2024 1912 IMPRESSION: Moderate atherosclerotic disease within the bilateral carotid bifurcations. No evidence of hemodynamically significant (greater than 50%) stenosis. LOCATION: B2 Impression By: Janae - Chiqui Churchill M.D. Diagnosis, Assessment Plan Problem List/A P: 1. Acute hepatic encephalopathy 2. Cirrhosis Free Text A P: Right upper quadrant ultrasound showed evidence of cirrhosis without liver mass. Presence of TIPS. No ascites. Patient now has subacute infarcts. Neurology on board. Ammonia trending up and still confused however better. C/W lactulose and Rifaximin. Would avoid trending Ammonia. Will follow Kaitlin Mcdermott 05/12/24 1228: Diagnosis, Assessment Plan Free Text A P: Patient's chart have been reviewed along with examined and interviewed with [employer]AL [employer]AM DRIVER and I agree with plan as written above at 1331 at 9363 RPT #:[id number] END OF REPORT [facility] 2024-04-09 07:20:00 [facility] ([facility] Hospitalist Progress Note REPORT#:[id number] REPORT STATUS: Signed REPORT INITIALIZATION DATE:04/09/24 TIME: 719 PATIENT: KEYLA LITTLE UNIT #: [id number] [place] [facility] [place] AGE: 63 SEX: M ATTEND: Vlad Couch MD ADM AUTHOR: Anmol Levine NP REPT SERVICE DT/TIME: 04/09/24 0720 * ALL edits or amendments must be made on the electronic/computer document * Subjective Chief complaint: His Ammonia level 135 today. Still little lethargic. Breathing is stable. Not in distress. BP and HR stable. Review of Systems All systems rev neg: except as noted Unable to obtain due to: Lethargic Objective General VS/I O: Vital Signs: Date Time Temp Pulse Resp B/P B/P Pulse O2 O2 Flow FiO2 Mean Ox Delivery Rate 04/09 0333 36.6 77 14 149/68 94.8 99 04/08 2334 36.5 77 14 163/70 100.9 97 04/08 1946 36.7 82 14 154/69 97.1 98 04/08 1115 36.3 76 133/71 91.7 99 04/08 0759 36.5 92 16 136/68 91.0 99 PATIENT WEIGHT: Weight (lb): Weight (oz): Weight (kg): 81.818 Medications: Active Meds + DC'd Last 24 Hrs Lactulose (LACTULOSE) 30 GM Q6HR PO Lactulose (LACTULOSE) 200 GM ONCE ONE RECTAL (DC) Sodium Chloride (SODIUM CHLORIDE IRRIG BAG) 700 ML Clopidogrel Bisulfate (Plavix) 75 MG DAILY PO Sodium Chloride (SODIUM CHLORIDE) 0 ASDIR PRN IV Sodium Chloride (SODIUM CHLORIDE) 0 ASDIR PRN IV Insulin Glargine (Semglee) 15 UNIT BID SUBQ Folic Acid (FOLIC ACID) 1 MG DAILY PO Metformin HCl (GLUCOPHAGE) 500 MG C BK PO Lactulose (LACTULOSE) 20 GM Q8HR PO (DC) Atorvastatin Calcium (LIPITOR) 20 MG BEDTIME PO Pantoprazole (PROTONIX) 40 MG BID PO Rifaximin (XIFaxan) 550 MG BID PO Aspirin (ASPIRIN) 81 MG DAILY PO (DC) Dextrose/Water (DEXTROSE 10% IN WATER) 125 ML ASDIR PRN IV (CKD) Dextrose/Water (DEXTROSE 10% IN WATER) 250 ML ASDIR PRN IV (CKD) Glucagon (GLUCAGON) 1 MG ASDIR PRN IM Hydralazine HCl (APRESOLINE) 10 MG Q6H PRN PRN IV Insulin Human Lispro (HUMALOG) 0 AC HS SUBQ Acetaminophen (TYLENOL) 650 MG Q4H PRN PRN PO Al Hydrox/Mg Hydrox/Simethicone (MYLANTA) 30 ML Q4H PRN PRN PO Docusate Sodium (COLACE) 100 MG BID PRN PRN PO Ondansetron HCl (ZOFRAN) 4 MG Q4H PRN PRN IV Sodium Chloride (SODIUM CHLORIDE 0.9%) 1,000 ML .[id number] IV (DC) Dietitian nutrition assessment The data set between the solid lines has been imported from the dietitian's assessment. BMI Calculated: 23.2 Nutrition related diagnosis: Nutrition diagnosis details: Nutrition problem: Nutrition etiology: Nutrition signs and symptoms: Nutrition prescription: Dietitian name: Assessment completed: Physical Exam General appearance: frail, awake Head/Eyes: atraumatic, normocephalic, PERRLA Cardiovascular: normal capillary refill, normal heart sounds, regular rate rhythm Respiratory: aerating well, symmetric expansion, no distress Abdomen: non-tender, normal bowel sounds Genitourinary: no flank pain, no urinary catheter Extremities: no clubbing, no cyanosis Musculoskeletal: no muscle spasm Results Findings/Data: Laboratory Tests 04/09 04/09 04/08 04/08 04/08 0600 0600 2014 1711 1110 Chemistry Sodium (134 - 147 mEq/L) 143 Potassium (3.4 - 5.0 mEq/L) 3.6 Chloride (100 - 108 mEq/L) 111 H Carbon Dioxide (21 - 33 mEq/l) 25 Anion Gap (0 - 20) 11 BUN (7 - 25 mg/dL) 10 Creatinine (0.6 - 1.3 mg/dL) 0.9 Glomerular Filtr Rate (80 - 90) 97.2 H Glucose (77 - 141 mg/dL) 146 H POC Glucose (70 - 110 MG/DL) 166 H 112 H 190 H Calcium (8.0 - 10.5 mg/dL) 9.2 Total Bilirubin (0.0 - 1.0 mg/dL) 0.70 AST (8 - 34 IUnit/L) 66 H ALT (10 - 49 IUnit/L) 76 H Total Alk Phosphatase (20 - 125 97 IUnit/L) Ammonia (11 - 35 umol/L) 135 H Total Protein (6.4 - 8.2 g/dL) 6.8 Albumin (3.4 - 5.0 g/dL) 3.10 L 04/08 0757 Chemistry POC Glucose (70 - 110 MG/DL) 267 H Laboratory Tests 04/09 0600 Hematology WBC (4.5 - 11.0 x10 3/uL) 3.4 L RBC (4.00 - 5.60 x10 6/uL) 3.98 L Hgb (12.5 - 16.9 g/dL) 10.1 L Hct (37.5 - 50.7 %) 32.0 L MCV (81.0 - 99.0 fL) 80.4 L MCH (27.0 - 33.0 pg) 25.4 L MCHC (33.0 - 37.0 g/dL) 31.6 L RDW (11.5 - 14.5 %) 19.0 H Plt Count (150 - 400 x10 3/uL) 92 L MPV (7.0 - 9.0 fL) 11.0 H Neut % (Auto) (56.0 - 77.0 %) 45.2 L Lymph % (Auto) (14.0 - 32.0 %) 38.7 H Crawford % (Auto) (4.8 - 9.0 %) 12.3 H Eos % (Auto) (0.3 - 3.7 %) 2.6 Baso % (Auto) (0.0 - 2.0 %) 1.2 Neut # (Auto) (2.0 - 7.6 x10 3/uL) 1.54 L Lymph # (Auto) (1.0 - 3.8 x10 3/uL) 1.32 Crawford # (Auto) (0.1 - 0.8 x10 3/uL) 0.42 Eos # (Auto) (0.0 - 0.2 x10 3/uL) 0.09 Baso # (Auto) (0.0 - 0.2 x10 3/uL) 0.04 Abs Immat Gran (auto) (0.00 - 0.03 x10 3/uL) 0.00 Immature Gran % (0.0 - 2.0 %) 0.0 Nucleated RBC % (0 - 0 %) 0.0 Nucleated RBCs # (Man) (0.0 - 0.1 x10 3/uL) 0.00 Immature Plt Fraction (0.9 - 11.2 %) 3.2 Radiology data: Recent Impressions: CAT SCAN - CT ANGIO NECK 04/08 100 Report Impression - Status: SIGNED Entered: 04/08/2024 1051 IMPRESSION: Significant atherosclerotic disease of the right carotid bifurcation and internal right carotid artery with greater than 95% stenosis. Atherosclerotic disease of the bilateral intracranial carotid siphons with moderate flow-limiting stenosis on the right. (All qualitative and quantitative assessments of carotid bifurcation and proximal internal carotid artery stenosis are made referencing the distal internal carotid artery {NASCET criteria}.) LOCATION: B2 Impression By: Janae Churchill M.D. CAT SCAN - CTA HEAD 04/08 1004 Report Impression - Status: SIGNED Entered: 04/08/2024 1051 IMPRESSION: Significant atherosclerotic disease of the right carotid bifurcation and internal right carotid artery with greater than 95% stenosis. Atherosclerotic disease of the bilateral intracranial carotid siphons with moderate flow-limiting stenosis on the right. (All qualitative and quantitative assessments of carotid bifurcation and proximal internal carotid artery stenosis are made referencing the distal internal carotid artery {NASCET criteria}.) LOCATION: B2 Impression By: Janae Churchill M.D. ULTRASOUND - DUP EXTRACRANIAL VALENTIN 04/08 1536 Report Impression - Status: SIGNED Entered: 04/08/2024 1553 IMPRESSION: Moderate atherosclerotic disease within the bilateral carotid bifurcations. No evidence of hemodynamically significant (greater than 50%) stenosis. LOCATION: B2 Impression By: Janae Churchill M.D. Results: labs reviewed, vital signs reviewed, vital signs stable, current med profile rev'd Diagnosis, Assessment Plan Problem List/A P: 1. Hyperammonemic encephalopathy 2. AMS (altered mental status) 3. Uncontrolled diabetes mellitus 4. Cirrhosis 5. RIGHT ICA STENOSIS 6. Acute hepatic encephalopathy Code status: full code Plan discussed with: patient, admitting physician, consultants, nurse Free Text DxA P Notes Free text DxA P notes: Plan: Floor. Flee enema. Will check Ammonia level. Monitor Neuro status. Replace electrolytes Avoid sedative. Antiemetics. Follow labs and replace as needed. Continue home meds. Monitor. at 0723 at 2217 RPT #:[id number] END OF REPORT [facility] 2024-04-08 19:22:00 [id number] [place] [address] PATIENT NAME: KEYLA LITTLE ADMIT DATE: 04/03/24 ACCOUNT NO: [id number] ROOM NO: [facility] [place] AGE: 63 REPORT TYPE: eECHOCARDIOGRAM REPORT SEX: M ADMITTING PHYSICIAN:Vlad Couch MD ATTENDING PHYSICIAN:Vlad Couch MD *[place] [address] Transthoracic Echocardiogram Patient: Keyla Little Study Date: 04/08/2024 BP: 136 / 68 URN: [id number] Location: : 1960 Age: 63 Gender: M Height: 74 in / 188 cm Weight: 180 lb / 81.7 kg BMI/BSA: 23.1 kg/m 2 / 2.06 m 2 *Ordering Physician: * Errol Christian *Interpreting Physician: * Ryan Johnson MD *Server Developer: * CondeIsabella Parry RCS Indications: STROKE. Study data: Transthoracic echocardiogram. Procedure: A transthoracic echocardiogram was performed. Image quality was fair. The study was technically limited due to poor patient compliance, restricted patient mobility, and body habitus. Intravenous contrast (agitated saline) was administered. Complete 2D, complete spectral Doppler, and color Doppler. Location: Bedside. Patient status: Inpatient. Patient room number: 5509. Study status: Routine. Heart rate: 76 bpm. Findings Left ventricle: The cavity size is normal. Wall thickness is mildly increased. Systolic function is normal. The estimated ejection fraction is PATIENT NAME: KEYLA LITTLE 55-60%. Wall motion is normal; there are no regional wall motion abnormalities. Left ventricular diastolic function parameters are normal. Right ventricle: The cavity size is normal. Systolic function is normal. Left atrium: The atrium is normal in size. Right atrium: The atrium is dilated. Atrial septum: No defect or patent foramen ovale is identified by color Doppler and/or agitated saline contrast. Aorta: Aortic root: The root is normal-sized. Aortic valve: The valve is structurally normal. The valve is trileaflet. There is no evidence of stenosis. There is no regurgitation. Mitral valve: The valve is structurally normal. There is no evidence of stenosis. There is no regurgitation. Tricuspid valve: The valve is structurally normal. There is no regurgitation. Pulmonic valve: The valve is structurally normal. There is no regurgitation. Pericardium: A prominent pericardial fat pad is present. There is no pericardial effusion. Pulmonary arteries: The main pulmonary artery is normal-sized. Systemic veins: Inferior vena cava: The IVC is normal-sized. Measurements Left ventricle Value Ref GLS, 2D -20 % --------- EFRAIN, LAX 4.5 cm 4.2 - 5.8 ESD, LAX 3.1 cm 2.5 - 4.0 FS, LAX 31 % 25 - 43 EFRAIN major ax, A2C 9.1 cm --------- ESD major ax, A2C 7.2 cm --------- IVS, ED 1.3 cm 0.6 - 1.0 PW, ED 1.1 cm 0.6 - 1.0 IVS/PW, ED 1.16 --------- EF 58 % 52 - 72 E', lat carmen, TDI 13.7 cm/sec >=10.0 E/e', lat carmen, TDI 5 <=13 E', med carmen, TDI 8.8 cm/sec >=7.0 E/e', med carmen, TDI 8 --------- E', avg, TDI 11.3 cm/sec --------- E/e', avg, TDI 6 <=14 LVOT Value Ref Diam, S 1.96 cm --------- Area 3.0 cm 2 --------- Peak nilesh, S 0.9 m/sec --------- Mean nilesh, S 0.69 m/sec --------- VTI, S 23.3 cm --------- Peak grad, S 3 mm Hg --------- Mean grad, S 2 mm Hg --------- SV 70 ml --------- SV/bsa 34 ml/m 2 --------- Right ventricle Value Ref PATIENT NAME: KEYLA LITTLE EFRAIN, LAX 3.1 cm --------- TAPSE, MM 2.1 cm >=1.7 Left atrium Value Ref AP dim, ES 3.5 cm 3.0 - 4.0 Vol/bsa, S 23 ml/m 2 16 - 34 Vol/bsa, ES, 1-p A4C 9 ml/m 2 12 - 37 Vol, ES, 2-p 48 ml --------- Vol/bsa, ES, 2-p 23 ml/m 2 16 - 34 Vol/bsa, ES, A/L 10 ml/m 2 16 - 34 Right atrium Value Ref Area, ES 15 cm 2 10 - 18 SI dim, ES, A4C 5.5 cm 3.4 - 5.3 Vol, ES, A/L 35 ml --------- Vol, ES, 1-p A4C 37 ml --------- Vol/bsa, ES, 1-p A4C 18 ml/m 2 11 - 39 Aortic valve Value Ref Peak v, S 1.2 m/sec --------- Mean v, S 0.92 m/sec --------- VTI, S 25.7 cm --------- Mean grad, S 4 mm Hg --------- Peak grad, S 5.8 mm Hg --------- LVOT/AV, VTI ratio 0.91 --------- SHKAIRA, VTI 2.22 cm 2 --------- LVOT/AV, Vpeak ratio 0.75 --------- SHAKIRA, Vmax 2.29 cm 2 --------- Mitral valve Value Ref Mean v, D 0.6 m/sec --------- Peak E 0.72 m/sec --------- Peak A 0.65 m/sec --------- VTI leaflet coapt 22.9 cm --------- MiV/LVOT VTI 1.0 --------- Decel time 254 ms --------- PHT 66 ms --------- Mean grad, D 2 mm Hg --------- Peak grad, D 3.3 mm Hg --------- Peak E/A ratio 1.12 --------- MVA, PHT 3.4 cm 2 --------- Aortic root Value Ref Root diam 2.8 cm 2.7 - 4.2 Ascending aorta Value Ref AAo AP diam, S 3.2 cm --------- Conclusions Summary: 1. Left ventricle: The cavity size is normal. Wall thickness is mildly PATIENT NAME: KEYLA LITTLE increased. Systolic function is normal. The estimated ejection fraction is 55-60%. Wall motion is normal; there are no regional wall motion abnormalities. Left ventricular diastolic function parameters are normal. The longitudinal strain is -20%. 2. Right atrium: The atrium is dilated. 3. Atrial septum: No defect or patent foramen ovale is identified by color Doppler and/or agitated saline contrast. 4. Pericardium, extracardiac: A prominent pericardial fat pad is present. There is no pericardial effusion. 5. Inferior vena cava: The IVC is normal-sized. Impressions: Mobile interatrial septum. Bubble study was not perfomed with valsalva. No obvious cardioembolic source of cerebrovascular accident was noted. Recommend transesophageal echocardiogram if clinically indicated. Electronically signed by Ryan Johnson MD 04/08/2024 19:22 at 1922 PATIENT NAME: KEYLA LITTLE [facility] 2024-04-08 18:09:00 [facility] ([facility]) Gastroenterology Progress Note REPORT#:[id number] REPORT STATUS: Signed REPORT INITIALIZATION DATE:04/08/24 TIME: 1808 PATIENT: KEYLA LITTLE UNIT #: [id number] ROOM/BED: [place] [address] : [birth year] AGE: 63 SEX: M ATTEND: Vlad Couch MD ADM AUTHOR: Dolly Collier MD REPT SERVICE DT/TIME: 04/08/241808 * ALL edits or amendments must be made on the electronic/computer document * Subjective Chief complaint: High ammonia HPI: 63 year old man with hx of cirrhosis who was hospitalized with encephalopathy. Upon the encounter pt mental status seems to have improved. Pt reports knowing about cirrhosis for a while. Not being managed. No alcohol intake. Etiology of cirrhosis in not clear. 04/06: still confused. RUQ U/S pending 04/07: MRI showed subacute infarct in the brain. Right upper quad ultrasound showed evidence of TIPS. No liver masses. 04/08: moving bowels. Still confused. Ammonia trending up Objective Physical Exam HEENT: anicteric Cardiovascular: normal heart sounds Respiratory: clear to auscultation Abdomen: non-tender Extremities: no edema Diagnosis, Assessment Plan Problem List/A P: 1. Herpetic encephalitis 2. Cirrhosis Free Text A P: Right upper quadrant ultrasound showed evidence of cirrhosis without liver mass. Presence of TIPS. No ascites. Patient now has subacute infarcts. Neurology on board. Ammonia trending up and still confused however better. C/W lactulose and Rifaximin. Would avoid trending Ammonia. Will follow at 1810 RPT #:[id number] END OF REPORT [facility] 2024-04-08 14:19:00 [facility] ([facility]) Vascular Surgery Consult Note REPORT#:[id number] REPORT STATUS: Signed REPORT INITIALIZATION DATE:04/08/24 TIME: 1418 PATIENT: KEYLA LITTLE UNIT #: [id number] ROOM/BED: 5509-1 : 64 AGE: 63 SEX: M ATTEND: Vlad Couch MD ADM AUTHOR: Mukesh Martin Jr DO REPT SERVICE DT/TIME: 04/08/24 1419 * ALL edits or amendments must be made on the electronic/computer document * History of Present Illness Requesting Clinician: Vlad Couch MD Reason for consult: Carotid stenosis, Stroke Chief complaint: Confused PCP: PCP: Bo Steele MD HPI: Patient is a 63-year-old male with past medical history of hypertension, hyperlipidemia, type 2 diabetes mellitus, previous CVA, cirrhosis who presented to the hospital with worsening confusion. Workup during the hospitalization revealed an evolving late subacute infarction of the right frontal lobe with no evidence of hemorrhagic transformation. On CTA of the neck was noted the patient had a proximal 95% stenosis of the right carotid bulb and ICA. Vascular surgery was consulted for assessment of carotid stenosis. Unable to obtain review of systems given patient's mental status History - Adult longitudinal Additional medical history: HTN, HLD, DM II, cirrhosis Additional surgical history: reviewed Additional family history: reviewed, [place] Alcohol use: Denies EtOH use Drug use: Denies recreational drugs Smoking status for patients 13 years old or older: Never Smoker Allergies: Coded Allergies: No Known Allergies (04/03/24) Review of Systems Unable to obtain due to: Patient is confused Objective VS/I O: Last Documented: Result Date Time Pulse Ox 98 04/10 1935 B/P 132/65 04/10 1935 B/P Mean 87.1 04/10 1935 O2 Delivery Room air 04/10 1935 Temp 97.7 04/10 1935 Pulse 76 04/10 1935 Resp 14 04/10 1935 PATIENT WEIGHT: Weight (lb): Weight (oz): Weight (kg): 81.818 General appearance: altered mental status, confused, no acute distress HEENT: anicteric, pupils reactive to light, sclera clear Neck: non-tender, no bruit/NL carotids, no JVD Cardiovascular: BP/pulses equal bilat., normal heart sounds, no murmur Respiratory: aerating well, clear to auscultation, no distress Abdomen: soft, non-tender, no distention Extremities: moves all Pulse assess: Vascular pulse assess: Palpated: R radial, L radial, R femoral, L femoral. Neuro/NEON PUMPER: altered mental status, disoriented Diagnosis, Assessment Plan Problem List/A P: 1. AMS (altered mental status) 2. RIGHT ICA STENOSIS Free Text A P: Patient seen and examined, labs and imaging reviewed Patient with severe right carotid stenosis on CTA and moderate stenosis on ultrasonography in the setting of a subacute right frontal lobe infarction. Patient with concomitant metabolic encephalopathy. Will defer carotid arteriogram after encephalopathy has resolved and will decide on timing of revascularization after the procedure Recommended dual antiplatelet therapy with possible, high intensity statin, strict blood glucose control Will continue to follow Rest of care per primary team and consultants Thank you for allowing me to be part of this patient's care at 2307 RPT #:[id number] END OF REPORT [facility] 2024-04-08 10:23:00 [facility] Internal Medicine Prog. Note REPORT#:[id number] REPORT STATUS: Signed REPORT INITIALIZATION DATE:04/08/24 TIME: 1023 PATIENT: KEYLA LITTLE UNIT #: [id number] ROOM[address]BED[address] : [birth year] AGE: 63 SEX: M ATTEND: Vlad Couch MD ADM AUTHOR: Vlad Couch MD REPT SERVICE DT/TIME: 04/08/24 1023 * ALL edits or amendments must be made on the electronic/computer document * Subjective Free Text Subj Notes Free Text Subj Notes: events noted Review of Systems All systems rev neg: except as marked Objective Physical Exam Head/Eyes: atraumatic, EOMI, normocephalic, PERRLA ENT: normal pharynx Neck: non-tender, no JVD Cardiovascular: normal heart sounds, regular rate rhythm, no murmur Respiratory: aerating well, clear to auscultation, symmetric expansion, no distress Abdomen: non-tender, normal bowel sounds, soft, no distention Extremities: Extremities: no edema Musculoskeletal: normal inspection Neuro/NEON PUMPER: alert, oriented x 3 Diagnosis, Assessment Plan Problem List/A P: 1. Hyperammonemic encephalopathy 2. Acute hepatic encephalopathy 3. AMS (altered mental status) 4. Uncontrolled diabetes mellitus Free Text DxA P Notes Free text DxA P notes: medications reviewed, continue same resume home meds activity as tolerates diet as tolerates MRI Brain noted, neuro recs noted CTA neck - critical stenosis right ICA vascular consulted continue plavix supportive care adjust lactulose regimen at 1303 RPT #:[id number] END OF REPORT [facility] 2024-04-07 17:52:00 [facility] Gastroenterology Progress Note REPORT#:[id number] REPORT STATUS: Signed REPORT INITIALIZATION DATE:04/07/24 TIME: 1751 PATIENT: KEYLA LITTLE UNIT #: [id number] ROOM/BED: [place] [address] : [birth year] AGE: 63 SEX: M ATTEND: Vlad Couch MD ADM AUTHOR: Dolly Collier MD REPT SERVICE DT/TIME: 04/07/241751 * ALL edits or amendments must be made on the electronic/computer document * Subjective Chief complaint: High ammonia HPI: 63 year old man with hx of cirrhosis who was hospitalized with encephalopathy. Upon the encounter pt mental status seems to have improved. Pt reports knowing about cirrhosis for a while. Not being managed. No alcohol intake. Etiology of cirrhosis in not clear. 04/06: still confused. RUQ U/S pending 04/07: MRI showed subacute infarct in the brain. Right upper quad ultrasound showed evidence of TIPS. No liver masses. Objective Physical Exam HEENT: anicteric Cardiovascular: normal heart sounds Respiratory: clear to auscultation Abdomen: non-tender Extremities: no edema Diagnosis, Assessment Plan Problem List/A P: 1. Herpetic encephalitis 2. Cirrhosis Free Text A P: Right upper quadrant ultrasound showed evidence of cirrhosis without liver mass. Presence of TIPS. No ascites. Patient now has subacute infarcts. Neurology on board. Will follow at 1753 RPT #:[id number] END OF REPORT [facility] 2024-04-07 17:38:00 [facility] ([facility]) Neurology Consultation Note REPORT#:[id number] REPORT STATUS: Signed REPORT INITIALIZATION DATE:04/07/24 TIME: 1737 PATIENT: KEYLA LITTLE UNIT #: [id number] ROOM/BED: [place] [address] : 62 AGE: 63 SEX: M ATTEND: Vlad Couch MD ADM AUTHOR: Errol Christian MD REPT SERVICE DT/TIME: 04/07/241737 * ALL edits or amendments must be made on the electronic/computer document * History of Present Illness HPI HPI: Neurology Inpatient Consult ASSESSMENT: This is a 63-year-old male with h/o HTN, HLD, DM II, stroke and cirrhosis, who presented with confusion on 04/03/2024. Neurology is called to evalute the stroke. He is confused, the information is from the chart. Brain MRI 04/07/2024: Evolving late subacute ischemic infarct in the right frontal lobe with no evidence of hemorrhagic transformation. Chronic microvascular ischemic changes and diffuse cerebral volume loss. No abnormal enhancement is identified. The patient has subacute ishcmeic stroke in the right frontla lobe, AMS and cirrhosis. HA1C 7.8 %, PLT 119. RECOMMENDATIONS: 1. Continue Lipitor 2. Switch ASA to Plavix 3. Treat other underlying diseases 4. CTA of head and neck 5. TTE with bubble study, EKG 6. Check Ammonia, HA1C, Lipid profile, B12 and TSH 7. PT, OT and DVT prevention REASON FOR CONSULTATION/CHIEF COMPLAINT: stroke and AMS HISTORY OF PRESENT ILLNESS: This is a 63-year-old male with h/o HTN, HLD, DM II, stroke and cirrhosis, who presented with confusion on 04/03/2024. Neurology is called to evalute the stroke. He is confused, the information is from the chart. According to the chart, he had a stroke due to right ICA stenosis on 12/15/2022. He has been confused sicne January 2024 after he had TIPS for the cirrhosis. During the interview, he is very cofused, seems having left leg weakness. REVIEW OF SYSTEMS: Except as mentioned in the HPI, review of systems is essentially negative for the 10 major systems. PAST MEDICAL HISTORY: HTN, HLD, DM II, stroke and cirrhosis PAST SURGICAL HISTORY: TIPS ALLERGIES: NKDA CURRENT HOME MEDICATIONS: Home Medications: FERROUS GLUCONATE 324 MG PO DAILY RIFAXIMIN (XIFAXAN) 550 MG PO BID FOLIC ACID 1 MG PO DAILY ATORVASTATIN (LIPITOR) 20 MG PO BEDTIME PANTOPRAZOLE DR (PROTONIX) 40 MG PO BID ASPIRIN 81 MG PO DAILY metFORMIN ER 500 MG PO DAILY LACTULOSE (LACTULOSE 10 GM/15 ML) 45 ML PO TID FAMILY HISTORY: Non-contributory SOCIAL HISTORY: unknown PHYSICAL EXAMS: Vital Signs: Date Time Temp Pulse Resp B/P B/P Pulse O2 O2 Flow FiO2 Mean Ox Delivery Rate 04/07 1704 97.2 82 16 144/69 94.1 99 04/07 1105 97.9 77 16 144/69 94.2 100 04/07 0736 97.9 76 16 124/68 86.6 99 04/07 0428 97.9 82 14 130/52 78.2 99 Room air 04/07 0014 98.4 87 14 131/65 87.2 97 Room air 04/06 1901 98.2 80 14 126/56 79.2 100 Room air General appearance: appears stated age. Lying on bed comfortably. HEENT: No tenderness in the scalp. Normal carotid pulse without bruits. Neck is supple. Lungs: are clear to auscultation bilaterally. Cardiac: Normal S1, S2 without murmurs, gallops or rubs. Abdomen: is soft, No distension or tenderness. : No bladder distension Extremities: Range of motion is normal in all limbs. Peripheral pulses are intact. No edema. Skin and musculoskeletal system: No skin rash. No tenderness in the muscles. Others: No lymphadenopathy or bruise. Neurological Examinations: Cognition Function: Patient is awake, alert, but confsed, language: fluent,poor comprehension. Cranial Nerves: PERRLA, EOMI, No nystagmus, no visual field cut, close eye tightly bilaterally Motor: move less in the left leg Sensory: Has facial griamce and limb movement DTRs: 0/2 in biceps, triceps, and brachioradialis bilaterally, 0/2 in the patellar and Achilles tendons bilaterally. Plantar Reflex: Mute toes bilaterally Coordination: Not cooperative Gait: deferred Abnormal movements: None Diagnostic Tests: Laboratory Tests: 04/07 04/07 04/07 04/07 04/06 1702 1105 0904 0735 1853 Chemistry POC Glucose (70 - 110 MG/DL) 87 256 H 168 H 220 H Ammonia (11 - 35 umol/L) 186 H 04/06 04/06 04/06 04/05 1743 1030 0741 1933 Chemistry POC Glucose (70 - 110 MG/DL) 96 182 H 257 H 232 H Recent Impressions: ULTRASOUND - US ABDOMEN LTD 04/06 0927 Cirrhotic liver morphology. TIPS stent is patent. Shadowing bowel gas limits evaluation of the liver and decreases sensitivity for detection of hepatic mass. No focal mass is seen. No ascites. MAGNETIC RESONANCE IMAGING - MRI BRAIN WO/W CONT 04/07 1218 Evolving late subacute ischemic infarct in the right frontal lobe with no evidence of hemorrhagic transformation. Chronic microvascular ischemic changes and diffuse cerebral volume loss. No abnormal enhancement is identified. The case was discussed with the care team I have personally seen this patient, reviewed the history and all the available data, performed the physical examination as documented above, and formulated the plan of care. Also discussed with patient about the workup and treatment options. All questions the patient and her/his family have are answered. Thank you for allowing me to take care of your patient. Errol Christian MD Neuro-Hospitalist History - Adult longitudinal Allergies: Coded Allergies: No Known Allergies (04/03/24) at 0807 RPT #:[id number] END OF REPORT [facility] 2024-04-07 12:48:00 [facility] Internal Medicine Prog. Note REPORT#:[id number] REPORT STATUS: Signed REPORT INITIALIZATION DATE:04/07/24 TIME: 1248 PATIENT: KEYLA LITTLE UNIT #: [id number] ROOM/BED: [address] : [birth year] AGE: 63 SEX: M ATTEND: Vlad Couch MD ADM AUTHOR: Vlad Couch MD REPT SERVICE DT/TIME: 04/07/24 1248 * ALL edits or amendments must be made on the electronic/computer document * See Addendum Review of Systems All systems rev neg: except as marked Objective Physical Exam Head/Eyes: atraumatic, EOMI, normocephalic, PERRLA ENT: normal pharynx Neck: non-tender, no JVD Cardiovascular: normal heart sounds, regular rate rhythm, no murmur Respiratory: aerating well, clear to auscultation, symmetric expansion, no distress Abdomen: non-tender, normal bowel sounds, soft, no distention Extremities: Extremities: no edema Musculoskeletal: normal inspection Neuro/NEON PUMPER: alert, oriented x 3 Diagnosis, Assessment Plan Problem List/A P: 1. Hyperammonemic encephalopathy 2. Acute hepatic encephalopathy 3. AMS (altered mental status) 4. Uncontrolled diabetes mellitus Free Text DxA P Notes Free text DxA P notes: medications reviewed, continue same resume home meds activity as tolerates diet as tolerates US abd noted pending MRI Brain discharge plannign, needs close GI follow up outpatient at 1249 Addendum 1: 04/07/24 1318 by Vlad Couch MD MRI reviewed, shows subacute ischemia CVA right frontal lobe - neurology eval before dispo at 1319 RPT #:[id number] END OF REPORT [facility] 2024-04-06 13:18:00 [facility] ([facility]) Gastroenterology Progress Note REPORT#:[id number] REPORT STATUS: Signed REPORT INITIALIZATION DATE:04/06/24 TIME: 1318 PATIENT: KEYLA LITTLE UNIT #: [id number] [place] [facility] [place] AGE: 63 SEX: M ATTEND: Vlad Couch MD ADM AUTHOR: Dolly Collier MD REPT SERVICE DT/TIME: 04/06/24 1318 * ALL edits or amendments must be made on the electronic/computer document * Subjective Chief complaint: High ammonia HPI: 63 year old man with hx of cirrhosis who was hospitalized with encephalopathy. Upon the encounter pt mental status seems to have improved. Pt reports knowing about cirrhosis for a while. Not being managed. No alcohol intake. Etiology of cirrhosis in not clear. 04/06: still confused. RUQ U/S pending Objective Physical Exam HEENT: anicteric Cardiovascular: normal heart sounds Respiratory: clear to auscultation Abdomen: non-tender Extremities: no edema Diagnosis, Assessment Plan Problem List/A P: 1. Herpetic encephalitis 2. Cirrhosis Free Text A P: Will rule out infection and other etiologies for HE Rifaximin and lactulose with goal of 3 BM/day. Will order RUQ U/S to rule out HCC or PVT If ascites seen will need to get diagnostic paracentesis Avoid benzo and opioids. Will follow at 1318 RPT #:[id number] END OF REPORT [facility] 2024-04-05 09:23:00 [facility] Internal Medicine Prog. Note REPORT#:[id number] REPORT STATUS: Signed REPORT INITIALIZATION DATE:04/05/24 TIME: 922 PATIENT: KEYLA LITTLE UNIT #: [id number] ROOM/BED: [place] [address] : 64 AGE: 63 SEX: M ATTEND: Vlad Couch MD ADM AUTHOR: Vlad Couch MD REPT SERVICE DT/TIME: 04/05/24 09 * ALL edits or amendments must be made on the electronic/computer document * See Addendum Subjective Free Text Subj Notes Free Text Subj Notes: overall stable mentation improved Review of Systems All systems rev neg: except as marked Objective General VS/I O: Vital Signs Date Temp Pulse Resp B/P B/P Mean Pulse Ox FiO2 04/04-04/05 36.4-36.6 69-78 14-16 129-152/57-75 81.0-100.6 99-100 Last Documented: Result Date Time Pulse Ox 99 04/05 1251 O2 Delivery Room air 04/05 1251 B/P 129/57 04/05 1032 B/P Mean 81.0 04/05 1032 Temp 36.6 04/05 1032 Pulse 72 04/05 1032 Resp 15 04/05 1032 PATIENT WEIGHT: Weight (lb): Weight (oz): Weight (kg): 81.818 Physical Exam General appearance: alert, awake, oriented Head/Eyes: atraumatic, EOMI, normocephalic, PERRLA ENT: normal pharynx Neck: non-tender, no JVD Cardiovascular: normal heart sounds, regular rate rhythm, no murmur Respiratory: aerating well, clear to auscultation, symmetric expansion, no distress Abdomen: non-tender, normal bowel sounds, soft, no distention Extremities: Extremities: no edema Musculoskeletal: normal inspection Neuro/NEON PUMPER: alert, oriented x 3 Diagnosis, Assessment Plan Problem List/A P: 1. Hyperammonemic encephalopathy 2. Acute hepatic encephalopathy 3. AMS (altered mental status) 4. Uncontrolled diabetes mellitus Free Text DxA P Notes Free text DxA P notes: medications reviewed, continue same resume home meds activity as tolerates diet as tolerates plan d/c home in AM at 1353 Addendum 1: 04/05/24 1359 by Vlad Couch MD awaiting MRI , if not completed today - can be done as outpatient at 1359 RPT #:[id number] END OF REPORT [facility] 2024-04-05 07:47:00 [facility] ([facility]) GE Consultation Note REPORT#:[id number] REPORT STATUS: Signed REPORT INITIALIZATION DATE:04/05/24 TIME: 746 PATIENT: KEYLA LITTLE UNIT #: [id number] ROOM/BED: [place] [address] : 64 AGE: 63 SEX: M ATTEND: Vlad Couch MD ADM AUTHOR: Dolly Collier MD REPT SERVICE DT/TIME: 04/05/24 0747 * ALL edits or amendments must be made on the electronic/computer document * History of Present Illness Requesting clinician: Dr. Couch Reason for consult: AMS Chief complaint: High ammonia PCP: PCP: Bo Steele MD HPI: 63 year old man with hx of cirrhosis who was hospitalized with encephalopathy. Upon the encounter pt mental status seems to have improved. Pt reports knowing about cirrhosis for a while. Not being managed. No alcohol intake. Etiology of cirrhosis in not clear. History - Adult longitudinal Additional medical history: HTN, HLD, DM II, cirrhosis Additional surgical history: reviewed Additional family history: reviewed, [place] Alcohol use: Denies EtOH use Drug use: Denies recreational drugs Smoking status for patients 13 years old or older: Never Smoker Allergies: Coded Allergies: No Known Allergies (04/03/24) Objective Physical Exam VS/I O: Last Documented: Result Date Time Pulse Ox 99 04/05 1549 B/P 127/69 04/05 1549 B/P Mean 88.2 04/05 1549 Temp 98.1 04/05 1549 Pulse 76 04/05 1549 Resp 15 04/05 1549 O2 Delivery Room air 04/05 1251 PATIENT WEIGHT: Weight (lb): Weight (oz): Weight (kg): 81.818 Medications: Active Meds + DC'd Last 24 Hrs Insulin Glargine (Semglee) 15 UNIT BID SUBQ Folic Acid (FOLIC ACID) 1 MG DAILY PO Metformin HCl (GLUCOPHAGE) 500 MG C BK PO Lactulose (LACTULOSE) 20 GM Q8HR PO Atorvastatin Calcium (LIPITOR) 20 MG BEDTIME PO Pantoprazole (PROTONIX) 40 MG BID PO Rifaximin (XIFaxan) 550 MG BID PO Aspirin (ASPIRIN) 81 MG DAILY PO Dextrose/Water (DEXTROSE 10% IN WATER) 125 ML ASDIR PRN IV (CKD) Dextrose/Water (DEXTROSE 10% IN WATER) 250 ML ASDIR PRN IV (CKD) Glucagon (GLUCAGON) 1 MG ASDIR PRN IM Hydralazine HCl (APRESOLINE) 10 MG Q6H PRN PRN IV Insulin Human Lispro (HUMALOG) 0 AC HS SUBQ Acetaminophen (TYLENOL) 650 MG Q4H PRN PRN PO Al Hydrox/Mg Hydrox/Simethicone (MYLANTA) 30 ML Q4H PRN PRN PO Docusate Sodium (COLACE) 100 MG BID PRN PRN PO Ondansetron HCl (ZOFRAN) 4 MG Q4H PRN PRN IV Sodium Chloride (SODIUM CHLORIDE 0.9%) 1,000 ML .[id number] IV General appearance: alert, awake HEENT: anicteric Cardiovascular: normal heart sounds Respiratory: clear to auscultation Abdomen: non-tender Extremities: no edema Diagnosis, Assessment Plan Problem List/A P: 1. Herpetic encephalitis 2. Cirrhosis Free Text DxA P Notes Free Text DxA P Notes: Will rule out infection and other etiologies for HE Rifaximin and lactulose with goal of 3 BM/day. Will order RUQ U/S to rule out HCC or PVT If ascites seen will need to get diagnostic paracentesis Avoid benzo and opioids. Will follow at 1813 RPT #:[id number] END OF REPORT [facility] 2024-04-04 09:26:00 [facility] ([facility]) History Physical - Adult REPORT#:[id number] REPORT STATUS: Signed REPORT INITIALIZATION DATE:04/04/24 TIME: 925 PATIENT: KEYLA LITTLE UNIT #: [id number] ROOM/BED: [place] [address] : [birth year] AGE: 63 SEX: M ATTEND: Vlad Couch MD ADM AUTHOR: Vlad Couch MD REPT SERVICE DT/TIME: 04/04/24925 * ALL edits or amendments must be made on the electronic/computer document * History of Present Illness Free Text HPI Notes Free Text HPI Notes: 63 year old male with multiple co-morbidities presents to the ED with altered mentation over the past few days. no fever, chills, chest pain, shortness of breath, abdominal pain, nausea/vomitnig. found to ahve signifincat elveated ammonia level. History Additional medical history: HTN, HLD, DM II, cirrhosis Additional surgical history: reviewed Additional family history: reviewed, [place] Alcohol use: Denies EtOH use Drug use: Denies recreational drugs Smoking status for patients 13 years old or older: Never Smoker Medication/Allergy-Vaccine Hx Allergies: Coded Allergies: No Known Allergies (04/03/24) Review of Systems All systems rev neg: except as marked Physical Exam VS/I O Vital Signs: Date Time Temp Pulse Resp B/P B/P Pulse O2 O2 Flow FiO2 Mean Ox Delivery Rate 04/04 1036 36.4 73 16 159/67 97.4 100 04/04 0724 36.4 75 15 133/60 84.6 99 04/04 0403 36.5 74 14 148/66 93.6 98 04/03 2348 36.4 71 14 145/64 90.9 98 04/03 1926 36.4 82 14 109/59 75.7 100 04/03 1613 36.6 71 17 174/77 108.9 100 24 hour I O ending at 0700: 04/04 0700 04/03 1900 Intake Total Output Total Balance Patient 81.818 kg Weight Weight Stated/Reported Measurement Method PATIENT WEIGHT: Weight (lb): Weight (oz): Weight (kg): 81.818 General appearance: alert, awake, oriented Head/Eyes: atraumatic, EOMI, normocephalic, PERRLA ENT: normal pharynx Neck: non-tender, no JVD Cardiovascular: regular rate rhythm, normal heart sounds, no murmur Respiratory: clear to auscultation, no distress, no tenderness, aerating well Abdomen/GI: active bowel sounds, soft, non-tender, no guarding Extremities: moves all Musculoskeletal: normal inspection Neuro/NEON PUMPER: alert, oriented X 3 Diagnosis, Assessment Plan Problem List/A P: 1. Hyperammonemic encephalopathy 2. Acute hepatic encephalopathy 3. AMS (altered mental status) 4. Uncontrolled diabetes mellitus Free Text DxA P Notes Free Text DxA P Notes: medications reviewed, continue same hepatic encpehlopathy -continue lactulose , rifaximin resume home meds optimzie glycemic control follow labs supportive care at 1230 RPT #:[id number] END OF REPORT [facility] 2024-04-03 09:49:00 [facility] ([facility]) EMERGENCY PROVIDER REPORT REPORT#:[id number] REPORT STATUS: Signed DATE:04/03/24 TIME: 948 PATIENT: KEYLA LITTLE UNIT #: [id number] ROOM/BED: 5509-1 AGE: 63 SEX: M PCP PHYS: Bo Steele MD SERVICE AUTHOR: Donn Gomez FLIGHT KITCHEN MANAGER AGACNP * ALL edits or amendments must be made on the electronic/computer document * Donn Gomez 04/03/24 0949: HPI-Altered Mental Status Free Text HPI Notes Free Text HPI Notes 63-year-old male presents with his POA who reports patient has had increasing confusion since January after receiving a TIPS procedure and insomnia which began last night. 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 He was started on Eliquis at that time and then switched to Brilinta, but was taken off after having bleeding ulcers. General Initial Greet Date/Time 04/03/24 0902 Presentation Chief Complaint Confused Review of Systems ROS Statements All systems rev neg except as marked. Past Medical History - Adult Stated Complaint CONFUSION Allergies Coded Allergies: No Known Allergies (04/03/24) Home Medications Reported Medications FERROUS GLUCONATE 324 MG PO DAILY RIFAXIMIN (XIFAXAN) 550 MG PO BID FOLIC ACID 1 MG PO DAILY ATORVASTATIN (LIPITOR) 20 MG PO BEDTIME PANTOPRAZOLE DR (PROTONIX) 40 MG PO BID ASPIRIN 81 MG PO DAILY metFORMIN ER 500 MG PO DAILY LACTULOSE (LACTULOSE 10 GM/15 ML) 45 ML PO TID Calculated Suicide Risk (nurs) No risk Review of Nursing Notes Triage notes reviewed Smoking status for patients 13 years old or older: Never Smoker Physical Exam Vital Signs Vital Signs First Documented: Result Date Time Pulse Ox 100 04/03 912 B/P 128/66 04/03 912 B/P Mean 86 04/03 912 O2 Delivery Room air 04/03 912 Temp 36.4 04/03 912 Pulse 79 04/03 912 Resp 16 04/03 912 Last Documented: Result Date Time Pulse Ox 100 04/03 0912 B/P 128/66 04/03 0912 B/P Mean 86 04/03 912 O2 Delivery Room air 04/03 912 Temp 36.4 04/03 912 Pulse 79 04/03 912 Resp 16 04/03 912 Review of Vital Signs Reviewed Focused PE General/Const General/Const Awake, Alert MS Head Head Atraumatic, Normocephalic Ears/Nose/Throat Ears/Nose/Throat Airway patent, Pharynx NL MS Neck Neck Supple Resp/Chest Respiratory/Chest Breath sounds NL, Breath sounds = bilat, No respiratory distress, No wheezing Cardiovascular Cardiovascular Heart rate NL, Regular rhythm, Heart sounds NL Abdomen/GI Abdomen/GI Soft Skin Skin Warm, Dry, Intact Neurologic Neurologic Speech NL Psychiatric Psychiatric Affect NL Interpretation Diagnostics Lab Results Interpretation Results Laboratory Tests 04/03/24 09: [Embedded Image Not Available] Laboratory Tests: 04/03 04/03 04/03 04/03 1106 0930 0929 0929 Chemistry Sodium (134 - 147 mEq/L) 139 Potassium (3.4 - 5.0 mEq/L) 4.1 Chloride (100 - 108 mEq/L) 108 Carbon Dioxide (21 - 33 mEq/l) 27 Anion Gap (0 - 20) 8 BUN (7 - 25 mg/dL) 10 Creatinine (0.6 - 1.3 mg/dL) 1.0 Glomerular Filtr Rate (80 - 90) 85.6 Glucose (77 - 141 mg/dL) 388 H Lactic Acid (0.4 - 1.9 mmol/L) 1.7 Calcium (8.0 - 10.5 mg/dL) 9.3 Total Bilirubin (0.0 - 1.0 mg/dL) 0.80 Direct Bilirubin (0.1 - 0.3 MG/DL) 0.30 Indirect Bilirubin (MG/DL) 0.50 AST (8 - 34 IUnit/L) 65 H ALT (10 - 49 IUnit/L) 85 H Total Alk Phosphatase (20 - 125 IUnit/L) 91 Ammonia (11 - 35 umol/L) 133 H Troponin I High Sens (0 - 54 ng/L) 3 Total Protein (6.4 - 8.2 g/dL) 7.3 Albumin (3.4 - 5.0 g/dL) 3.30 L Hematology WBC (4.5 - 11.0 x10 3/uL) 3.4 L RBC (4.00 - 5.60 x10 6/uL) 4.19 Hgb (12.5 - 16.9 g/dL) 10.7 L Hct (37.5 - 50.7 %) 33.6 L MCV (81.0 - 99.0 fL) 80.2 L MCH (27.0 - 33.0 pg) 25.5 L MCHC (33.0 - 37.0 g/dL) 31.8 L RDW (11.5 - 14.5 %) 18.8 H Plt Count (150 - 400 x10 3/uL) 134 L MPV (7.0 - 9.0 fL) 11.3 H Neut % (Auto) (56.0 - 77.0 %) 50.6 L Lymph % (Auto) (14.0 - 32.0 %) 34.5 H Crawford % (Auto) (4.8 - 9.0 %) 11.4 H Eos % (Auto) (0.3 - 3.7 %) 2.3 Baso % (Auto) (0.0 - 2.0 %) 0.9 Neut # (Auto) (2.0 - 7.6 x10 3/uL) 1.73 L Lymph # (Auto) (1.0 - 3.8 x10 3/uL) 1.18 Crawford # (Auto) (0.1 - 0.8 x10 3/uL) 0.39 Eos # (Auto) (0.0 - 0.2 x10 3/uL) 0.08 Baso # (Auto) (0.0 - 0.2 x10 3/uL) 0.03 Abs Immat Gran (auto) (0.00 - 0.03 0.01 x10 3/uL) Immature Gran % (0.0 - 2.0 %) 0.3 Nucleated RBC % (0 - 0 %) 0.0 Nucleated RBCs # (Man) (0.0 - 0.1 x10 3/uL) 0.00 Urines Urine Color (YEL/STRAW) YELLOW Urine Appearance (CLEAR) CLEAR Urine pH (5.0 - 7.0) 6.0 Ur Specific Post (1.005 - 1.030) 1.029 Urine Protein (NEGATIVE) NEGATIVE Urine Glucose (UA) (NEGATIVE) 3+ H Urine Ketones (NEGATIVE) NEGATIVE Urine Blood (NEGATIVE) NEGATIVE Urine Nitrite (NEGATIVE) NEGATIVE Urine Bilirubin (NEGATIVE) NEGATIVE Urine Urobilinogen (0.2 - 1.0 mg/dL) 0.2 Ur Leukocyte Esterase (NEGATIVE) NEGATIVE Urine RBC (0 - 3 RBC/HPF) 0-3 Urine WBC (0 - 3 WBC/HPF) 0-3 Ur Squamous Epith Cells (NONE SEEN /HPF) NONE SEEN Urine Bacteria (NONE SEEN /HPF) NONE SEEN Microbiology: Date/Time Procedure - Status Source Growth 04/03 929 Blood Culture - COMP BLOOD 04/03 929 Blood Culture Gram Stain - COMP BLOOD 04/03 929 Blood Culture - COMP BLOOD 04/03 929 Blood Culture Gram Stain - COMP BLOOD Recent Impressions: RADIOLOGY - XR CHEST 1 V 04/03 0910 Report Impression - Status: SIGNED Entered: 04/03/2024 0940 IMPRESSION: Negative for acute chest process. Impression By: MayaABRob Diaz D.O. CAT SCAN - CT HEAD/BRAIN W/O CONT 04/03 0941 Report Impression - Status: SIGNED Entered: 04/03/2024 1006 Impression: Ill-defined hypodensity involving the right frontal lobe, as described, which may represent age-indeterminate ischemic infarct involving the right MCA vascular territory. However, mass lesion with vasogenic edema cannot be excluded. Recommend MRI of the brain with and without contrast further evaluate. No evidence of acute intracranial hemorrhage. Impression By: MayaABRob Diaz D.O. Re-Evaluation MDM Free Text MDM Notes Free Text MDM Notes 63-year old male presents with increasing confusion and insomnia which began last night. )( Re-Evaluation/Progress #1 Text/Dict Note Patient re-eval, he is more comfortable than upon initial exam. Time of Re-Eval 0758 )( Re-Eval Status Improved ED Course Medication(s) Ordered Medication(s) Ordered: Electrolytic, Caloric, And Leonora Sig/Kyara Start time Last Medication Dose Route Stop Time Status Admin Dextrose/Water 125 ML ASDIR PRN 04/03 1200 DC IV 04/04 1052 Dextrose/Water 250 ML ASDIR PRN 04/03 1200 DC IV 04/04 1052 Hormones And Synthetic Substit Sig/Kyara Start time Last Medication Dose Route Stop Time Status Admin Glucagon 1 MG ASDIR PRN 04/03 1200 DC IM 04/04 1052 Patient Discharge Departure Vital Signs/Condition Vital Signs First Documented: Result Date Time Pulse Ox 100 04/03 912 B/P 128/66 04/03 0912 B/P Mean 86 04/03 0912 O2 Delivery Room air 04/03 912 Temp 36.4 04/03 912 Pulse 79 04/03 0912 Resp 16 04/03 912 Last Documented: Result Date Time Pulse Ox 100 04/03 09 B/P 128/66 04/03 0912 B/P Mean 86 04/03 09 O2 Delivery Room air 04/03 912 Temp 36.4 04/03 09 Pulse 79 04/03 09 Resp 16 04/03 912 All vital signs available at the time of this entry have been reviewed. Condition Stable Clinical Impression Clinical Impression Primary Impression: Uncontrolled diabetes mellitus Secondary Impressions: Hyperammonemic encephalopathy Disposition Decision Hospitalize Hosp Physician Name Vlad Couch MD [facility] Physician Hospitalist )( Accepts Hospitalization Yes )( Reason for Hospitalization AMS Uncontrolled DM )( Accepted Time 1027 )( Accepted Date 04/03/24 Call Information will see patient Discharge/Care Plan Counseled Regarding Diagnosis, Lab results, Imaging studies, Need for admission Admit Note I have spoken with the patient and/or caregivers. I have explained the patient's condition, diagnoses and treatment plan based on the information available to me at this time. I have answered the patient's and/or caregiver's questions and addressed any concerns. The patient and/or caregivers have as good an understanding of the patient's diagnosis, condition and treatment plan as can be expected at this point. The patient has been stabilized within the capability of the emergency department. The patient will be transported for further care and management or will be moved to an observation or inpatient service. I have communicated with the staff or medical practitioner taking over this patient's care. Critical Care Time Spent (minutes): 32 Services Performed Patient management by me, Time spent at bedside, Reviewing test results, Reviewing imaging, Discussing patient care, Documentation in record, Time with fam/surrogate Patient was critically ill due to: Due to the high probability of clinical significant, life threatening deterioration, the patient requires my highest level of preparedness to intervene emergently and I personally spent 32 minutes of critical care time directly and personally managing the patient. This critical care time included obtaining the history, examining the patient, pulse oximetry, ordering and review of studies, arranging urgent treatment with development of management plan, evaluation of patient's response to treatment, frequent reassessment, and decisions with other providers. This critical care time was performed to assess and manage the high probability of imminent life-threatening deterioration that could result in multiorgan failure. It was exclusive of separate billable procedures and treating other patients and teaching time. Donn Gomez NP My treatment and management were: This critical care time included obtaining the history, examining the patient, pulse oximetry, ordering and review of studies, arranging urgent treatment with development of management plan (cardiac monitoring, fluids), evaluation of patient's response to treatment, frequent reassessment, and decisions with other providers. This critical care time was performed to assess and manage the high probability of imminent life-threatening deterioration that could result in multiorgan failure. Zenia Lund 04/10/24 0620: Patient Discharge Departure Supervising Physician Note MidLv Saw Pt Alone I have reviewed the PA/COAL TRAM DRIVER's note and plan of care. I was available for consultation as needed at all times during the patient's visit in the emergency department. I agree with the clinical impression, plan and disposition. at 1426 at 0620 [facility] #:[phone] END OF REPORT [facility] 2024-03-22 10:54:45 Pt given printed and verbal discharge instructions regarding hepatic encephalopathy. Pt verbalized understanding of instructions and encouraged to follow up with pcp. Advised to seek medical attention for new/prolonged/worsening of symptoms. No adverse reaction to medications given in ER noted upon discharge. PIV discontinued with catheter intact. Pt is AAOx4. Discharge VS are stable. RR E/U. Skin WDL. Pt leaving facility ambulatory with steady gait. NAD noted upon discharge and exit from ED. Valery Sylvester RN [facility] 2024-03-22 08:00:00 Admitting team at bedside. [facility] 2024-03-22 07:15:00 Introduced self to pt. Pt is A/Ox2- oriented to self and to place. Disoriented to time and situation. Pt updated on POC. Verbalized understanding. Calm and cooperative at this time. NAD. Rre/u VSS. [facility] 2024-03-22 07:04:06 Report given to HELENA Luciano. POC discussed. Jefry Hill RN [facility] 2024-03-22 04:40:00 Received report from HELENA Allen. POC discussed. [facility] 2024-03-22 04:39:39 Report to Abby Hill RN Belkis Allen RN [facility] 2024-03-22 04:04:46 Patient assisted to [facility] and noted to have BM. [facility] 2024-03-22 03:02:49 Lactulose PO to be given 8hrs after last given dose,next PO lactulose to be given at 0600 per admitting team, requested from pharmacy now. [facility] 2024-03-22 01:00:00 Patient assisted to BSC, noted to have BM, assisted back to stretcher, denies any daily needs, RR E/U, AAOx2-3, NAD noted. [facility] 2024-03-22 00:31:45 Admitting team at bedside [facility] 2024-03-22 00:00:00 Patient resting in stretcher and is now AAOx2-3, to name, location, situation at times. Admitting team notified Patient with safety council director at bedside [facility] 2024-03-21 22:39:47 US at bedside [facility] 2024-03-21 22:16:00 Patient assisted to BSC and having large BM Patient assisted back into stretcher and resting Patient with safety council director at bedside [facility] 2024-03-21 21:55:43 Thiamine requested from pharmacy [facility] 2024-03-21 21:12:42 Spoke to lab regarding ammonia. Was told they only ran lactic earlier today at 1642. Will redraw [facility] 2024-03-21 20:50:28 Spoke with admitting team regarding patient AMS and patient unable to follow commands and take PO meds at this time. T [facility] 2024-03-21 20:44:35 MD messaged for med order d/t agitation/AMS Marisol Davis RN [facility] 2024-03-21 20:39:50 Patient attempting to get of stretcher multiple times. dramatic director at bed side redirecting patient. Attempted to page [place] team [phone] Pager unavailable. CN notified. T [facility] 2024-03-21 20:15:00 Patient took off clothes and diaper and agitated. Patient redirectable by sitter T [facility] 2024-03-21 19:11:30 Pt had large loose BM, diaper changed, pt in in view of sitter. Maggie Elmore RN [facility] 2024-03-21 19:00:00 Report received from Mary Alejandra RN. Patient resting in stretcher and pulling at lines and trying to get up, however redirectable by staff. Patient noted to have large loose BM, changed patient, and placed in clean diaper. Patient Aox1 to self, RR E/U, VSS Patient with safety council director at bedside [facility] 2024-03-21 15:13:20 Keyla Little is a 63 year old male c/o AMS. PT with recent HX of hospitalization for hepatic encephalopathy. Chad Conti RN [facility] [employer] 2024-03-21 15:10:00 Associated Order(s): EKG-12 Lead ROUTINE ONCE Pre-Procedure Diagnose(s): Altered mental status, unspecified altered mental status type Post-Procedure Diagnose(s): Altered mental status, unspecified altered mental status type [facility] Emergency Department Note Patient Name: Keyla Little Date of : 1960 63 year old male Treatment Room: [address] [place] [address] Primary Care Physician: Bo Steele Patient Escorted by: Self [9] Mode of Arrival: EMS - GEMS [30] EMS Treatment Prior to ED Arrival: Travel and Exposure Screening: Symptoms Does patient have any of these symptoms?: (not recorded) Exposure Screening Has patient had contact with someone with a communicable disease in the last month?: (not recorded) Diseases exposed to:: (not recorded) Is Patient ?: (not recorded) Exposure Date: (not recorded) Chief Complaint: Chief Complaint Patient presents with Altered mental status History of Present Illness: 63 y/o male brought by EMS for evaluation of altered mental status x today. Pt is not responding to questions. When asked questions, Pt only mentioned his name Past Medical History/Immunizations: No past medical history on file. Allergies: Allergies Allergen Reactions Liver Nausea and/or Vomiting Past Social History: Tobacco Use Former Smokeless Tobacco: Never used smokeless tobacco. Alcohol Use Yes. Past Surgical History: Past Surgical History: Procedure Laterality Date COLONOSCOPY Lower 02/11/2024 Surgeon: Jonnathan Florez MD; Location: ENDOSCOPY () OR LOCATION ESOPHAGOGASTRODUODENOSCOPY Upper 02/11/2024 Surgeon: Jonnathan Florez MD; Location: ENDOSCOPY ([facility]) OR LOCATION RADIUS AND ULNA ORIF Right 02/25/2016 Surgeon: Ericka Bergman; Location: [facility] [place] SPLINT APPLICATION Right 02/25/2016 Surgeon: Ericka Bergman; Location: [facility] ULNA ORIF Right 10/10/2016 Surgeon: Cuba Salgado MD; Location: [facility] Location ULNAR NON-UNION TAKEDOWN Right 10/10/2016 Surgeon: Cuba Salgado MD; Location: [facility] Review of Systems: Review of Systems Unable to perform ROS: Mental status change Physical Exam: ED Triage Vitals [03/21/24 1514] Weight 95.3 kg (210 lb) Actual or estimated Height BP (!) 164/76 Pulse 82 Resp 18 Temp 36.6 ?C (97.9 ?F) Temp source Oral SpO2 100 % Measured on Room air Physical Exam Vitals and nursing note reviewed. Constitutional: General: He is not in acute distress. Appearance: Normal appearance. He is not ill-appearing, toxic-appearing or diaphoretic. HENT: Head: Atraumatic. Nose: Nose normal. Mouth/Throat: Mouth: Mucous membranes are dry. Pharynx: Oropharynx is clear. Eyes: Extraocular Movements: Extraocular movements intact. Conjunctiva/sclera: Conjunctivae normal. Pupils: Pupils are equal, round, and reactive to light. Cardiovascular: Rate and Rhythm: Normal rate and regular rhythm. Pulses: Normal pulses. Heart sounds: Normal heart sounds. Pulmonary: Effort: Pulmonary effort is normal. Breath sounds: Normal breath sounds. Abdominal: General: Abdomen is flat. Bowel sounds are normal. Palpations: Abdomen is soft. Tenderness: There is no abdominal tenderness. There is no guarding or rebound. Musculoskeletal: General: No swelling, tenderness, deformity or signs of injury. Normal range of motion. Cervical back: Normal range of motion and neck supple. Right lower leg: No edema. Left lower leg: No edema. Skin: General: Skin is warm. Capillary Refill: Capillary refill takes less than 2 seconds. Neurological: Mental Status: He is alert. He is disoriented. Sensory: No sensory deficit. Motor: No weakness. Psychiatric: Mood and Affect: Mood normal. Behavior: Behavior normal. Radiology: CT HEAD WO CONTRAST Preliminary Result EXAM: CT HEAD WO CONTRAST HISTORY: 63 years-old Male; Provided indication: Altered mental status. TECHNIQUE: Axial CT of the head was performed without intravenous contrast.Coronal and sagittal reformats were generated. COMPARISON: Prior CT head 02/25/2024, MR brain 01/31/2024 FINDINGS: The ventricles and cerebral sulci are normal in caliber and configuration. No midline shift or pathological extra-axial fluid collection is present. The basal cisterns are unremarkable. No acute intracranial hemorrhage or significant mass effect is visualized. Small chronic right MCA territory infarct, unchanged from the prior examination. No evidence of skull fracture. IMPRESSION No acute intracranial findings. Preliminary Report Dictated by Resident: Prakash Melara XR CHEST 1 VW Final Result CHEST SINGLE VIEW CLINICAL HISTORY: Altered mental status ORDERING PHYSICIAN: MIKEY SCHWARTZ TECHNIQUE: Frontal view of chest COMPARISON: 12/16/2023 FINDINGS: Numerous embolization coils are seen in the upper abdomen. There is a normal cardiomediastinal silhouette. The pulmonary vascularity does not appear congested. The lungs appear clear demonstrating no focal pulmonary consolidation, pleural effusion, or pneumothorax. No acute osseous process is observed. IMPRESSION No radiographic evidence for an acute process of the chest. RL: 3708 HS: Y Lab Results: Lab Results CBC WITH DIFF - Abnormal Result Value Ref Range WBC 3.66 (*) 4.20 - 10.70 10*3/?L RBC 4.01 (*) 4.26 - 5.52 10*6/?L HGB 10.3 (*) 12.2 - 16.4 g/dL HCT 32.0 (*) 38.4 - 49.3 % MCV 79.8 (*) 81.7 - 95.6 fL MCH 25.7 (*) 26.1 - 32.7 pg MCHC 32.2 31.2 - 35.0 g/dL RDW-SD 45.1 38.5 - 51.6 fL RDW-CV 16.4 (*) 12.1 - 15.4 % PLT 99 (*) 150 - 328 10*3/?L MPV 11.0 9.8 - 13.0 fL IPF % 2.6 1.2 - 10.7 % NRBC/100 WBC 0.0 0.0 - 10.0 /100 WBCs NRBC x10 3 <0.01 10*3/?L GRAN MAT (NEUT) % 55.7 % IMM GRAN % 0.30 % LYMPH % 29.5 % MONO % 12.6 % EOS % 1.1 % BASO % 0.8 % GRAN MAT x10 3 (ANC) 2.04 1.99 - 6.95 10*3/uL IMM GRAN x10 3 <0.03 0.00 - 0.06 10*3/uL LYMPH x10 3 1.08 (*) 1.09 - 3.23 10*3/uL MONO x10 3 0.46 0.36 - 1.02 10*3/uL EOS x10 3 0.04 (*) 0.06 - 0.53 10*3/uL BASO x10 3 0.03 0.01 - 0.09 10*3/uL URINALYSIS - Abnormal APPEARANCE Clear Clear COLOR Yellow Yellow PH 7.0 4.8 - 8.0 SP GRAVITY 1.013 1.003 - 1.030 GLU U QUAL Normal Normal BLOOD Negative Negative KETONES Negative Negative PROTEIN Negative Negative UROBILIN 4.0 mg/dL (*) Normal BILIRUBIN Negative Negative NITRITE Negative Negative LEUK MOI Negative Negative RBC/HPF 1 0 - 3 HPF WBC/HPF <1 0 - 5 HPF BACTERIA Negative Negative SQ EPITH <1 <=2 HPF COMP. METABOLIC PANEL (95013) - Abnormal NA 143 135 - 145 mmol/L K 4.7 3.5 - 5.0 mmol/L CL 113 (*) 98 - 108 mmol/L CO2 TOTAL 24 23 - 31 mmol/L AGAP 6 2 - 16 BUN 15 7 - 23 mg/dL GLUCOSE 178 (*) 70 - 110 mg/dL CREATININE 0.77 0.60 - 1.25 mg/dL TOTAL BILI 1.4 (*) 0.1 - 1.1 mg/dL CALCIUM 9.1 8.6 - 10.6 mg/dL T PROTEIN 7.4 6.3 - 8.2 g/dL ALBUMIN 3.6 3.5 - 5.0 g/dL ALK PHOS 111 34 - 122 U/L ALTv 100 (*) 5 - 50 U/L AST(SGOT) 85 (*) 13 - 40 U/L eGFR 101.9 mL/min/1.73m2 LIPASE - Normal LIPASE 158 0 - 220 U/L TROPONIN I - Normal TROPONIN I 0.011 <=0.034 ng/mL N-TERMINAL PRO-BNP - Normal NT-proBNP 30 <=125 pg/mL LACTIC ACID WHOLE BLOOD - Normal LACTIC ACID 1.73 0.50 - 2.20 mmol/L ETHANOL ALCOHOL <10 mg/dL AMMONIA, PLASMA EKG: If EKG completed, see Procedure Note. Orders and Treatments: Orders Placed This Encounter Procedures XR CHEST [address] HEAD WO CONTRAST CBC WITH DIFF URINALYSIS COMP. METABOLIC PANEL (60369) LIPASE TROPONIN I N-TERMINAL PRO-BNP Lactic Acid Whole Blood Lactic Acid Whole Blood ETHANOL Ammonia, Plasma Orders Placed This Encounter Medications NaCl 0.9% (NS) bolus infusion 1,000 mL lactulose 300 mL (Dilute to 700 mL with saline or water) enema 1 Enema First Provider Eval: ED Events Date/Time Event User Comments 03/21/241516 Medical Screening Begins CELIA MAR -- 03/21/24 151 First Provider Evaluation CELIA MAR -- AdmissionCare Guideline: Liver Disease - INPT, Inpatient Based on the indications selected for the patient, the bed status of Inpatient was determined to be MET The following indications were selected as present at the time of evaluation of the patient: - Clinical Indications for Admission to Inpatient Care - Admission is indicated for 1 or more of the following: - Severe encephalopathy (eg, somnolence, semi-stupor, confusion, disorientation to place, bizarre behavior, coma, [place] criteria grade III or IV, or [place] Scale III or IV) AdmissionCare documentation entered by: Wali Carter [facility] [employer], 28th edition, Copyright ? 2023 [facility] [employer] All Rights Reserved. [id number]:00 ED COURSE Diagnosis/Impression as of 03/21/24 1853 Altered mental status, unspecified altered mental status type Procedures: EKG-12 Lead ROUTINE ONCE Date/Time: 03/21/2024 5:54 PM Performed by: Celia Mar MD Authorized by: Mikey Schwartz MD ECG interpreted by ED Physician in the absence of a abrasive worker: yes Interpretation: Interpretation: abnormal Rate: ECG rate: 76 bpm ECG rate assessment: normal Rhythm: Rhythm: sinus rhythm Ectopy: Ectopy: none QRS: QRS axis: Normal QRS intervals: Normal QRS conduction: normal ST segments: ST segments: Normal T waves: T waves: non-specific Q waves: Abnormal Q-waves: not present MDM: Medical Decision Making 63 y/o male brought by EMS for evaluation of altered mental status x today. Pt is not responding to questions. When asked questions, Pt only mentioned his name PE indicates no sign of acute distress, Pt is not responding to questions, move extremities normally Labs indicates WBC is 3.66, Hgb is 10.3, Troponin is 0.011, BNP is 30, Lactic acid is 1.73 Chest Xray negative for acute pathology CT Head negative for acute pathology Medicine consulted- Pt admitted by Medicine Problems Addressed: Altered mental status, unspecified altered mental status type: acute illness or injury Amount and/or Complexity of Data Reviewed Independent Historian: EMS Labs: ordered. Decision-making details documented in ED Course. Radiology: ordered. Decision-making details documented in ED Course. Discussion of management or test interpretation with external provider(s): Medicine Risk Prescription drug management. Decision regarding hospitalization. Flowsheet Documentation: Scoring Tools: No data recorded Disposition/Condition: ED Disposition ED Disposition Admit - Inpatient Condition -- Comment -- Discharge Medications: Patient's Medications START taking these medications No medications on file CONTINUE taking these medications which have NOT CHANGED ASPIRIN 81 MG CHEWABLE TABLET Take 1 tablet by mouth in the morning. ATORVASTATIN (LIPITOR) 40 MG TABLET Take 1 tablet by mouth at bedtime. FOLIC ACID 1 MG TABLET Take 1 tablet by mouth in the morning. LACTULOSE 10 GRAM/15 ML (15 ML) ORAL SOLUTION Take 45 mL by mouth in the morning and 45 mL at noon and 45 mL in the evening. METFORMIN 500 MG/5 ML SSRR Take 500 mg by mouth at bedtime. NICOTINE 14 MG/24 HR PATCH Apply 1 Patch to area(s) every 24 (twenty-four) hours. PANTOPRAZOLE 40 MG EC TABLET Take 1 tablet by mouth in the morning and 1 tablet in the evening. RIFAXIMIN 550 MG TABLET Take 1 tablet by mouth in the morning and 1 tablet in the evening. THIAMINE MONONITRATE, VIT B1, 250 MG TAB Take 250 mg by mouth in the morning for 90 days. START taking Modified Medications as Prescribed No medications on file STOP taking these medications No medications on file Follow-up: Electronically signed by: Celia Mar MD 03/21/24 3503 Associated attestation - Mikey Schwartz MD - 03/21/2024 7:06 PM CDT After discussion with Dr. Mar, I examined this patient. I agree with resident's note as written. Hospital Encounter on 03/21/24 CT HEAD WO CONTRAST Narrative EXAM: CT HEAD WO CONTRAST HISTORY: 63 years-old Male; Provided indication: Altered mental status. TECHNIQUE: Axial CT of the head was performed without intravenous contrast.Coronal and sagittal reformats were generated. COMPARISON: Prior CT head 02/25/2024, MR brain 01/31/2024 FINDINGS: The ventricles and cerebral sulci are normal in caliber and configuration. No midline shift or pathological extra-axial fluid collection is present. The basal cisterns are unremarkable. No acute intracranial hemorrhage or significant mass effect is visualized. Small chronic right MCA territory infarct, unchanged from the prior examination. No evidence of skull fracture. Impression No acute intracranial findings. Preliminary Report Dictated by Resident: Prakash Melara XR CHEST 1 VW Narrative CHEST SINGLE VIEW CLINICAL HISTORY: Altered mental status ORDERING PHYSICIAN: MIKEY SCHWARTZ TECHNIQUE: Frontal view of chest COMPARISON: 12/16/2023 FINDINGS: Numerous embolization coils are seen in the upper abdomen. There is a normal cardiomediastinal silhouette. The pulmonary vascularity does not appear congested. The lungs appear clear demonstrating no focal pulmonary consolidation, pleural effusion, or pneumothorax. No acute osseous process is observed. Impression No radiographic evidence for an acute process of the chest. RL: 3708 HS: Y Recent Results (from the past 24 hour(s)) COMP. METABOLIC PANEL (00206) Collection Time: 03/21/24 3:52 PM Result Value Ref Range NA 143 135 - 145 mmol/L K 4.7 3.5 - 5.0 mmol/L CL 113 (H) 98 - 108 mmol/L CO2 TOTAL 24 23 - 31 mmol/L AGAP 6 2 - 16 BUN 15 7 - 23 mg/dL GLUCOSE 178 (H) 70 - 110 mg/dL CREATININE 0.77 0.60 - 1.25 mg/dL TOTAL BILI 1.4 (H) 0.1 - 1.1 mg/dL CALCIUM 9.1 8.6 - 10.6 mg/dL T PROTEIN 7.4 6.3 - 8.2 g/dL ALBUMIN 3.6 3.5 - 5.0 g/dL ALK PHOS 111 34 - 122 U/L ALTv 100 (H) 5 - 50 U/L AST(SGOT) 85 (H) 13 - 40 U/L eGFR 101.9 mL/min/1.73m2 LIPASE Collection Time: 03/21/24 3:52 PM Result Value Ref Range LIPASE 158 0 - 220 U/L TROPONIN I Collection Time: 03/21/24 3:52 PM Result Value Ref Range TROPONIN I 0.011 <=0.034 ng/mL N-TERMINAL PRO-BNP Collection Time: 03/21/24 3:52 PM Result Value Ref Range NT-proBNP 30 <=125 pg/mL ETHANOL Collection Time: 03/21/24 3:52 PM Result Value Ref Range ALCOHOL <10 mg/dL CBC WITH DIFF Collection Time: 03/21/24 4:42 PM Result Value Ref Range WBC 3.66 (L) 4.20 - 10.70 10*3/?L RBC 4.01 (L) 4.26 - 5.52 10*6/?L HGB 10.3 (L) 12.2 - 16.4 g/dL HCT 32.0 (L) 38.4 - 49.3 % MCV 79.8 (L) 81.7 - 95.6 fL MCH 25.7 (L) 26.1 - 32.7 pg MCHC 32.2 31.2 - 35.0 g/dL RDW-SD 45.1 38.5 - 51.6 fL RDW-CV 16.4 (H) 12.1 - 15.4 % PLT 99 (L) 150 - 328 10*3/?L MPV 11.0 9.8 - 13.0 fL IPF % 2.6 1.2 - 10.7 % NRBC/100 WBC 0.0 0.0 - 10.0 /100 WBCs NRBC x10 3 <0.01 10*3/?L GRAN MAT (NEUT) % 55.7 % IMM GRAN % 0.30 % LYMPH % 29.5 % MONO % 12.6 % EOS % 1.1 % BASO % 0.8 % GRAN MAT x10 3 (ANC) 2.04 1.99 - 6.95 10*3/uL IMM GRAN x10 3 <0.03 0.00 - 0.06 10*3/uL LYMPH x10 3 1.08 (L) 1.09 - 3.23 10*3/uL MONO x10 3 0.46 0.36 - 1.02 10*3/uL EOS x10 3 0.04 (L) 0.06 - 0.53 10*3/uL BASO x10 3 0.03 0.01 - 0.09 10*3/uL Lactic Acid Whole Blood Collection Time: 03/21/24 4:42 PM Result Value Ref Range LACTIC ACID 1.73 0.50 - 2.20 mmol/L URINALYSIS Collection Time: 03/21/24 6:28 PM Result Value Ref Range APPEARANCE Clear Clear COLOR Yellow Yellow PH 7.0 4.8 - 8.0 SP GRAVITY 1.013 1.003 - 1.030 GLU U QUAL Normal Normal BLOOD Negative Negative KETONES Negative Negative PROTEIN Negative Negative UROBILIN 4.0 mg/dL (A) Normal BILIRUBIN Negative Negative NITRITE Negative Negative LEUK MOI Negative Negative RBC/HPF 1 0 - 3 HPF WBC/HPF <1 0 - 5 HPF BACTERIA Negative Negative SQ EPITH <1 <=2 HPF Pt to be admitted for AMS. [facility] 2024-03-21 15:10:00 AdmissionCare Guideline: Liver Disease - INPT, Inpatient Based on the indications selected for the patient, the bed status of Inpatient was determined to be MET The following indications were selected as present at the time of evaluation of the patient: - Clinical Indications for Admission to Inpatient Care - Admission is indicated for 1 or more of the following: - Severe encephalopathy (eg, somnolence, semi-stupor, confusion, disorientation to place, bizarre behavior, coma, [place] criteria grade III or IV, or [place] Scale III or IV) AdmissionCare documentation entered by: Wali Carter [facility] Advanced [employer], 28th edition, Copyright ? 2023 [facility] All Rights Reserved. [id number]:00 [facility] 2024-03-15 08:01:23 PA initiated on covermymeds, waiting for determination Elaine Queen [employer] [facility] 2024-03-14 10:02:47 rifAXIMin 550 mg tablet [id number] Name:Sidney :1960 Pres[address] inpatient [address] Ramos Marilynn Epps [facility] 2024-03-08 09:26:25 2nd call no contact. Kayla Helm [employer] [facility] 2024-03-07 08:41:58 TRANSITIONAL CARE MANAGEMENT ASSESSMENT 03/07/2024 Keyla Little [id number] Keyla Little is a 63 year old /White male was admitted on 02/25/[address] He was discharged on 03/04/24 with discharge disposition of HR- Routine Discharge. Admitting Physician: Olvin Jose Discharge Diagnosis: Altered mental status, unspecified altered mental status type [R41.82]No contact. No linked episodes TCM [id number] outreach documentation: Future Appointments: [facility] 2024-03-04 00:25:32 Problem: Falls, Risk of Goal: Absence of falls Outcome: Progressing as expected Problem: Activity Intolerance Goal: Improved activity tolerance Outcome: Progressing as expected Problem: Infection Risk Goal: Absence of infection Outcome: Progressing as expected Problem: Fluid Volume - Imbalanced Goal: Absence of imbalanced fluid volume signs and symptoms Outcome: Progressing as expected Problem: Glucose control Goal: Glucose level within specified parameters Outcome: Progressing as expected Iris Jacobs RN [facility] 2024-03-03 19:26:36 Problem: Falls, Risk of Goal: Absence of falls 03/03/20241925 by Bridget Dill RN Outcome: Progressing as expected 03/03/2024 1337 by Bridget Dill RN Outcome: Progressing as expected Problem: Activity Intolerance Goal: Improved activity tolerance 03/03/20241925 by Bridget Dill RN Outcome: Progressing as expected 03/03/2024 1337 by Bridget Dill RN Outcome: Progressing as expected Problem: Infection Risk Goal: Absence of infection 03/03/20241925 by Bridget Dill RN Outcome: Progressing as expected 03/03/20241336 by Bridget Dill RN Outcome: Progressing as expected Problem: Fluid Volume - Imbalanced Goal: Absence of imbalanced fluid volume signs and symptoms 03/03/20241925 by Bridget Dill RN Outcome: Progressing as expected 03/03/2024 1337 by Bridget Dill RN Outcome: Progressing as expected Problem: Glucose control Goal: Glucose level within specified parameters 03/03/20241925 by Bridget Dill RN Outcome: Progressing as expected 03/03/20241336 by Bridget Dill RN Outcome: Progressing as expected Bridget Dill RN [facility] 2024-03-03 03:42:51 Problem: Falls, Risk of Goal: Absence of falls Outcome: Progressing as expected Problem: Activity Intolerance Goal: Improved activity tolerance Outcome: Progressing as expected Problem: Infection Risk Goal: Absence of infection Outcome: Progressing as expected Problem: Fluid Volume - Imbalanced Goal: Absence of imbalanced fluid volume signs and symptoms Outcome: Progressing as expected Problem: Glucose control Goal: Glucose level within specified parameters Outcome: Progressing as expected T [facility] 2024-03-02 20:13:51 Problem: Falls, Risk of Goal: Absence of falls Outcome: Progressing as expected Problem: Activity Intolerance Goal: Improved activity tolerance Outcome: Progressing as expected Problem: Infection Risk Goal: Absence of infection Outcome: Progressing as expected Problem: Fluid Volume - Imbalanced Goal: Absence of imbalanced fluid volume signs and symptoms Outcome: Progressing as expected Problem: Glucose control Goal: Glucose level within specified parameters Outcome: Progressing as expected [facility] 2024-03-01 22:31:58 Problem: Falls, Risk of Goal: Absence of falls Outcome: Progressing as expected Problem: Activity Intolerance Goal: Improved activity tolerance Outcome: Progressing as expected Problem: Infection Risk Goal: Absence of infection Outcome: Progressing as expected Problem: Fluid Volume - Imbalanced Goal: Absence of imbalanced fluid volume signs and symptoms Outcome: Progressing as expected Problem: Glucose control Goal: Glucose level within specified parameters Outcome: Progressing as expected [facility] Shana Gan RN [facility] 2024-02-29 13:25:15 Problem: Falls, Risk of Goal: Absence of falls Outcome: Progressing as expected Problem: Activity Intolerance Goal: Improved activity tolerance Outcome: Progressing as expected Problem: Infection Risk Goal: Absence of infection Outcome: Progressing as expected Problem: Fluid Volume - Imbalanced Goal: Absence of imbalanced fluid volume signs and symptoms Outcome: Progressing as expected Problem: Glucose control Goal: Glucose level within specified parameters Outcome: Progressing as expected [facility] 2024-02-28 22:48:23 Problem: Falls, Risk of Goal: Absence of falls Outcome: Progressing as expected Problem: Activity Intolerance Goal: Improved activity tolerance Outcome: Progressing as expected Problem: Infection Risk Goal: Absence of infection Outcome: Progressing as expected Problem: Fluid Volume - Imbalanced Goal: Absence of imbalanced fluid volume signs and symptoms Outcome: Progressing as expected Problem: Glucose control Goal: Glucose level within specified parameters Outcome: Progressing as expected T Mary Lou Walsh RN [facility] 2024-02-28 05:43:01 Problem: Falls, Risk of Goal: Absence of falls Outcome: Progressing as expected Problem: Activity Intolerance Goal: Improved activity tolerance Outcome: Progressing as expected Problem: Infection Risk Goal: Absence of infection Outcome: Progressing as expected Problem: Fluid Volume - Imbalanced Goal: Absence of imbalanced fluid volume signs and symptoms Outcome: Progressing as expected Problem: Glucose control Goal: Glucose level within specified parameters Outcome: Progressing as expected [facility] 2024-02-27 04:16:31 Problem: Falls, Risk of Goal: Absence of falls Outcome: Progressing as expected Problem: Activity Intolerance Goal: Improved activity tolerance Outcome: Progressing as expected Problem: Infection Risk Goal: Absence of infection Outcome: Progressing as expected Problem: Fluid Volume - Imbalanced Goal: Absence of imbalanced fluid volume signs and symptoms Outcome: Progressing as expected Problem: Glucose control Goal: Glucose level within specified parameters Outcome: Progressing as expected [facility] 2024-02-26 13:58:51 Patient transported back to inpatient unit by hospital transported stable and safe. NAD. [facility] Warner Cole RN [facility] 2024-02-26 13:53:[address] Fitzgerald, post abdominal ultrasound scan in IR procedure room 2 no drainable fluids. IR charge nurse notified with update. [facility] 2024-02-26 05:47:06 Problem: Falls, Risk of Goal: Absence of falls Outcome: Progressing as expected Problem: Activity Intolerance Goal: Improved activity tolerance Outcome: Progressing as expected Problem: Infection Risk Goal: Absence of infection Outcome: Progressing as expected Problem: Fluid Volume - Imbalanced Goal: Absence of imbalanced fluid volume signs and symptoms Outcome: Progressing as expected Problem: Glucose control Goal: Glucose level within specified parameters Outcome: Progressing as expected Fanny Phillip RN [facility] 2024-02-25 13:54:50 Patient to ultrasound via stretcher. Patient will go from ultrasound to [id number]. Penny Jones RN [facility] 2024-02-25 13:46:22 Nurse Report Report given to Germania MALIK. Chief complaint, assessment findings, and orders reviewed. Plan of care discussed, RN verbalized understanding. Penny Jones, JONO, RN. [facility] 2024-02-25 12:12:45 Patient resting in stretcher with call bae in reach. Patient aaox3, respirations even/unlabored, appears in no acute distress. Patient updated on status, pending admission bed placement at this time. [facility] 2024-02-25 10:18:19 Patient to xray via stretcher [facility] 2024-02-25 10:11:50 Lino PAIGE at bedside to assess patient [facility] 2024-02-25 10:00:00 Report received from EMS. Patient resting in stretcher with call bae in reach. Patient respirations even/unlabored, appears in no acute distress. Patient AOx3, reports having several BM each day , denies pain with urination, denies blood in stool, denies chest pain/sob, denies alcohol use. [facility] 2024-02-25 09:50:05 Keyla Little is a 63 year old male bib gems for ams and malaise, worsening over the last 24 hours. Pt no acting himself per . Pt on arrival a&ox3, gcs 14, with even non labored resp, wam dry skin and in no sign of distress, nih-, EKG in triage. Pt with previous left sided deficits d/t stroke. [facility] Evan Krishnan RN [facility] 2024-02-25 09:41:00 [facility] Emergency Department Note Patient Name: Keyla Little Date of : 1960 63 year old male Treatment Room: Room/bed info not found Primary Care Physician: Bo Steele Patient Escorted by: Self [9] Mode of Arrival: EMS - [facility] [30] EMS Treatment Prior to ED Arrival: Travel and Exposure Screening: Symptoms Does patient have any of these symptoms?: (not recorded) Exposure Screening Has patient had contact with someone with a communicable disease in the last month?: (not recorded) Diseases exposed to:: (not recorded) Is Patient ?: (not recorded) Exposure Date: (not recorded) Chief Complaint: Chief Complaint Patient presents with Altered mental status History of Present Illness: HPI 63yo M presenting to the ED with AMS. He is A&Ox2 (person and place, thinks it is 1993) and is able to provide some history but is disoriented. He denies pain. Reports that he has been taking his lactulose and has been having a few BM a day but cannot quantify. Denies blood in the stool. Denies nausea/vomiting. Denies falls/injuries. Spouse reports that since yesterday he has been increasingly confused and fatigued/tired. Chart Review: ETOH cirrhosis s/p TIPS 02/13/24, CVA, HLD. Recent admission for UGIB after starting DAPT for stroke. Past Medical History/Immunizations: History reviewed. No pertinent past medical history. Tetanus received in last 5 years: Unknown Allergies: Allergies Allergen Reactions Liver Nausea and/or Vomiting Past Social History: Tobacco Use Former Smokeless Tobacco: Never used smokeless tobacco. Alcohol Use Yes. Past Surgical History: Past Surgical History: Procedure Laterality Date COLONOSCOPY Lower 02/11/2024 Surgeon: Jonnathan Florez MD; Location: ENDOSCOPY () OR LOCATION ESOPHAGOGASTRODUODENOSCOPY Upper 02/11/2024 Surgeon: Jonnathan Florez MD; Location: ENDOSCOPY () OR LOCATION RADIUS AND ULNA ORIF Right 02/25/2016 Surgeon: Ericka Bergman; Location: [facility] SPLINT APPLICATION Right 02/25/2016 Surgeon: Ericka Bergman; Location: [facility] ULNA ORIF Right 10/10/2016 Surgeon: Cuba Salgado MD; Location: [facility] ULNAR NON-UNION TAKEDOWN Right 10/10/2016 Surgeon: Cuba Salgado MD; Location: [facility] OR Location Review of Systems: Review of Systems Unable to perform ROS: Mental status change Physical Exam: ED Triage Vitals [02/25/24 0943] Weight 95.3 kg (210 lb) Actual or estimated Estimated by patient/family report Height 1.854 m (6' 1") BP (!) 160/77 Pulse 80 Resp 14 Temp 36.5 ?C (97.7 ?F) Temp source Oral SpO2 99 % Measured on Room air Physical Exam Vitals and nursing note reviewed. Constitutional: Comments: Appears tired, delirious. Nontoxic HENT: Head: Normocephalic and atraumatic. Nose: Nose normal. Mouth/Throat: Mouth: Mucous membranes are moist. Pharynx: Oropharynx is clear. Eyes: General: No scleral icterus. Extraocular Movements: Extraocular movements intact. Pupils: Pupils are equal, round, and reactive to light. Cardiovascular: Rate and Rhythm: Normal rate and regular rhythm. Pulses: Normal pulses. Heart sounds: Normal heart sounds. No murmur heard. No friction rub. No gallop. Pulmonary: Effort: Pulmonary effort is normal. No respiratory distress. Breath sounds: Normal breath sounds. No wheezing, rhonchi or rales. Abdominal: General: Abdomen is flat. There is no distension. Palpations: Abdomen is soft. Tenderness: There is no abdominal tenderness. There is no guarding or rebound. Musculoskeletal: General: Normal range of motion. Cervical back: Normal range of motion and neck supple. Skin: General: Skin is warm and dry. Capillary Refill: Capillary refill takes less than 2 seconds. Coloration: Skin is not jaundiced. Neurological: Comments: A&Ox2 (person and place), symmetric facies, normal speech, moves all extremities with appropriate strength Radiology: CT HEAD WO CONTRAST Final Result EXAM: CT HEAD WO CONTRAST HISTORY: Mental status change, unknown cause . TECHNIQUE: Axial CT of the head was performed and reconstructed at 5 mm intervals. Coronal and sagittal reformatted images were generated. COMPARISON: Brain MRI dated on 01/31/2024 FINDINGS: The ventricles and cerebral sulci are normal in caliber and configuration. No midline shift or pathological extra-axial fluid collection is present. The basal cisterns are unremarkable. No acute intracranial hemorrhage or significant mass effect is visualized. Small size chronic infarct in the territory of right MCA is again noted and unchanged prior scan. The kaiser-white matter differentiation is preserved. The mastoid air cells and visualized paranasal air sinuses are clear. The calvarium and central skull base are unremarkable. Vascular calcification of both carotid siphons. Focal scalp swelling seen in the occipital region , involving the skin and subcutaneous fat (series #4 image #42 and 48), unchanged prior scan. Direct visualization is advised. IMPRESSION No acute intracranial abnormality. Preliminary Report Dictated by Resident: Tashia Monterroso MD., have reviewed this study and agree with the above report. XR CHEST 2 VW Final Result EXAM: XR CHEST 2 VW COMPARISON: Multiple chest regressed most recent performed 01/31/2023 4 HISTORY: AMS FINDINGS: Lungs: The lungs are well expanded and clear. Demonstration of an atelectasis in the left lower lung. No focal opacity. No pleural abnormality. Heart/Mediastinum: The cardiomediastinal silhouette is unremarkable. Bones and soft tissues: No osseous lesions visualized. Radiopaque embolization coils projecting over the epigastrium. IMPRESSION No radiographic evidence of acute cardiopulmonary process. Preliminary Report Dictated by Resident: Omega Salazar I, Cain Gonsales MD., have reviewed this study and agree with the above report. Lab Results: Lab Results BASIC METABOLIC PANEL (NA, K, CL, CO2, GLUCOSE, BUN, CREATININE, CA) - Abnormal Result Value Ref Range NA 139 135 - 145 mmol/L K 4.1 3.5 - 5.0 mmol/L CL 110 (*) 98 - 108 mmol/L CO2 TOTAL 25 23 - 31 mmol/L AGAP 4 2 - 16 BUN 10 7 - 23 mg/dL GLUCOSE 235 (*) 70 - 110 mg/dL CREATININE 0.68 0.60 - 1.25 mg/dL CALCIUM 8.8 8.6 - 10.6 mg/dL eGFR 105.8 mL/min/1.73m2 HEPATIC FUNCTION PANEL (51616) (ALB,T.PRO,BILI T,BU/BC,ALT,AST,ALK PHOS) - Abnormal TOTAL BILI 1.0 0.1 - 1.1 mg/dL BILI UNCON 0.6 0.1 - 1.1 mg/dL BILI CONJ 0.0 0.0 - 0.3 mg/dL T PROTEIN 6.9 6.3 - 8.2 g/dL ALBUMIN 3.5 3.5 - 5.0 g/dL ALK PHOS 120 34 - 122 U/L ALTv 77 (*) 5 - 50 U/L AST(SGOT) 42 (*) 13 - 40 U/L CBC WITH DIFF - Abnormal WBC 4.87 4.20 - 10.70 10*3/?L RBC 3.43 (*) 4.26 - 5.52 10*6/?L HGB 9.0 (*) 12.2 - 16.4 g/dL HCT 28.1 (*) 38.4 - 49.3 % MCV 81.9 81.7 - 95.6 fL MCH 26.2 26.1 - 32.7 pg MCHC 32.0 31.2 - 35.0 g/dL RDW-SD 42.3 38.5 - 51.6 fL RDW-CV 14.5 12.1 - 15.4 % PLT 154 150 - 328 10*3/?L MPV 9.4 (*) 9.8 - 13.0 fL NRBC/100 WBC 0.0 0.0 - 10.0 /100 WBCs NRBC x10 3 <0.01 10*3/?L GRAN MAT (NEUT) % 60.0 % IMM GRAN % 0.20 % LYMPH % 23.8 % MONO % 11.7 % EOS % 3.5 % BASO % 0.8 % GRAN MAT x10 3 (ANC) 2.92 1.99 - 6.95 10*3/uL IMM GRAN x10 3 <0.03 0.00 - 0.06 10*3/uL LYMPH x10 3 1.16 1.09 - 3.23 10*3/uL MONO x10 3 0.57 0.36 - 1.02 10*3/uL EOS x10 3 0.17 0.06 - 0.53 10*3/uL BASO x10 3 0.04 0.01 - 0.09 10*3/uL PROTHROMBIN TIME / INR - Abnormal PROTIME PATIENT 14.3 (*) 10.1 - 12.6 Seconds INR 1.3 AMMONIA, PLASMA - Abnormal AMMONIA 58 (*) 9 - 33 umol/L TYPE AND SCREEN IAT Negative ABORH INVESTIGATION ABO & RH A Negative URINALYSIS EKG: If EKG completed, see Procedure Note. Orders and Treatments: Orders Placed This Encounter Procedures CT HEAD WO CONTRAST XR CHEST 2 VW BASIC METABOLIC PANEL (NA, K, CL, CO2, GLUCOSE, BUN, CREATININE, CA) HEPATIC FUNCTION PANEL (42472) (ALB,T.PRO,BILI T,BU/BC,ALT,AST,ALK PHOS) CBC WITH DIFF Type and Screen - ONCE Routine PROTHROMBIN TIME / INR Ammonia, Plasma URINALYSIS ABORH INVESTIGATION Orders Placed This Encounter Medications lactulose (CEPHULAC) 10 gram/15 mL oral solution 30 mL aspirin chewable tablet 81 mg atorvastatin (LIPITOR) tablet 40 mg foLIC acid (FOLATE) tablet 1 mg lactulose (CEPHULAC) 10 gram/15 mL (15 mL) oral solution 15 mL pantoprazole (PROTONIX) EC tablet 40 mg First Provider Eval: ED Events Date/Time Event User Comments 02/25/24944 Medical Screening Begins JOSEPH SCHULTZ MD -- 02/25/24944 First Provider Evaluation JOSEPH SCHULTZ MD -- AdmissionCare Guideline: Liver Disease - INPT, Inpatient Based on the indications selected for the patient, the bed status of Inpatient was determined to be MET The following indications were selected as present at the time of evaluation of the patient: - Clinical Indications for Admission to Inpatient Care - Admission is indicated for 1 or more of the following: - Severe encephalopathy (eg, somnolence, semi-stupor, confusion, disorientation to place, bizarre behavior, coma, [place] criteria grade III or IV, or [place] Scale III or IV) AdmissionCare documentation entered by: Joseph Schultz [facility] Advanced [employer], 28 edition, Copyright ? 2023 [facility] [employer] All Rights Reserved. [id number]:00 ED COURSE ED Course as of 02/25/24 1243 [facility] Feb 25, [address] Jose who accepted patient to her service [PK] 1106 PROTHROMBIN TIME / INR(!) No severe coagulopathy [PK] 1106 HEPATIC FUNCTION PANEL (38130) (ALB,T.PRO,BILI T,BU/BC,ALT,AST,ALK PHOS)(!) Mild transaminitis, no severe acute hepatobiliary injury [PK] 1106 BASIC METABOLIC PANEL (NA, K, CL, CO2, GLUCOSE, BUN, CREATININE, CA)(!) No significant electrolyte derangement or RADHA [PK] 1106 AMMONIA(!): 58 Likely c/w HE - will order lactulose [PK] 1011 CBC WITH DIFF(!) No leukocytosis, stable anemia, no thrombocytopenia [PK] ED Course User Index [PK] Joseph Schultz MD Diagnosis/Impression as of 02/25/24 1243 Altered mental status, unspecified altered mental status type Hepatic cirrhosis, unspecified hepatic cirrhosis type, unspecified whether ascites present Procedures: Procedures MDM: Medical Decision Making Problems Addressed: Altered mental status, unspecified altered mental status type: acute illness or injury Hepatic cirrhosis, unspecified hepatic cirrhosis type, unspecified whether ascites present: chronic illness or injury with exacerbation, progression, or side effects of treatment Amount and/or Complexity of Data Reviewed External Data Reviewed: notes. Details: As per HPI Labs: ordered. Decision-making details documented in ED Course. Radiology: ordered. Risk Prescription drug management. Decision regarding hospitalization. 63yo M presenting to the ED with AMS. He appears encephalopathic, suspect likely hepatic given his known history of cirrhosis, recent TIPS procedure can be worsening this. Ammonia level is elevated c/w HE. No other etiology identified, we are still pending UA at this time however will not change need for admission, can be followed up by inpatient team. Initiated on lactulose in the ED. Admit medicine as above. Flowsheet Documentation: Scoring Tools: No data recorded Disposition/Condition: ED Disposition ED Disposition Admit - Inpatient Condition Stable Comment -- Discharge Medications: Patient's Medications START taking these medications No medications on file CONTINUE taking these medications which have NOT CHANGED ASPIRIN 81 MG CHEWABLE TABLET Take 1 tablet by mouth in the morning. ATORVASTATIN (LIPITOR) 40 MG TABLET Take 1 tablet by mouth at bedtime. FOLIC ACID 1 MG TABLET Take 1 tablet by mouth in the morning. LACTULOSE 10 GRAM/15 ML (15 ML) ORAL SOLUTION Take 15 mL by mouth in the morning. METFORMIN 500 MG/5 ML SSRR Take 500 mg by mouth at bedtime. NICOTINE 14 MG/24 HR PATCH Apply 1 Patch to area(s) every 24 (twenty-four) hours. PANTOPRAZOLE 40 MG EC TABLET Take 1 tablet by mouth in the morning and 1 tablet in the evening. START taking Modified Medications as Prescribed No medications on file STOP taking these medications No medications on file Follow-up: Electronically signed by: Joseph Schultz MD 02/25/24 1244 [facility] 2024-02-25 09:41:00 AdmissionCare Guideline: Liver Disease - INPT, Inpatient Based on the indications selected for the patient, the bed status of Inpatient was determined to be MET The following indications were selected as present at the time of evaluation of the patient: - Clinical Indications for Admission to Inpatient Care - Admission is indicated for 1 or more of the following: - Severe encephalopathy (eg, somnolence, semi-stupor, confusion, disorientation to place, bizarre behavior, coma, [place] criteria grade III or IV, or [place] Scale III or IV) AdmissionCare documentation entered by: Joseph Schultz [facility], 28th edition, Copyright ? 2023 [facility], [facility] All Rights Reserved. [id number]:31-05:00 [facility] 2024-02-15 17:44:49 Problem: Bleeding, Risk of Goal: Absence of impaired coagulation signs and symptoms 02/15/20241743 by Wally Ralph RN Outcome: Adequate for discharge 02/15/2024 174 by Wally Ralph RN Outcome: Progressing as expected 02/15/2024 1215 by Wally Ralph RN Outcome: Progressing as expected Goal: Absence of active bleeding 02/15/20241743 by Wally Ralph RN Outcome: Adequate for discharge 02/15/2024 174 by Wally Ralph RN Outcome: Progressing as expected 02/15/2024 1215 by Wally Ralph RN Outcome: Progressing as expected Problem: Falls, Risk of Goal: Absence of falls 02/15/20241743 by Wally Ralph RN Outcome: Adequate for discharge 02/15/2024 174 by Wally Ralph RN Outcome: Progressing as expected 02/15/2024 1215 by Wally Ralph RN Outcome: Progressing as expected Problem: Pain Goal: Control of pain at or below patient's documented comfort goal 02/15/20241743 by Wally Ralph RN Outcome: Adequate for discharge 02/15/2024 174 by Wally Ralph RN Outcome: Progressing as expected 02/15/2024 121 by Wally Ralph RN Outcome: Progressing as expected Goal: Reduction in pain sensation 02/15/20241743 by Wally Ralph RN Outcome: Adequate for discharge 02/15/2024 174 by Wally Ralph RN Outcome: Progressing as expected 02/15/2024 121 by Wally Ralph RN Outcome: Progressing as expected Problem: Discharge Planning Goal: Adequate for discharge 02/15/2024 174 by Wally Ralph RN Outcome: Adequate for discharge 02/15/2024 174 by Wally Ralph RN Outcome: Progressing as expected 02/15/2024 1215 by Wally Ralph RN Outcome: Progressing as expected Goal: Effective communication 02/15/2024 174 by Wally Ralph RN Outcome: Adequate for discharge 02/15/2024 174 by Wally Ralph RN Outcome: Progressing as expected 02/15/2024 1215 by Wally Ralph RN Outcome: Progressing as expected Problem: Discharge Planning Goal: Adequate for discharge 02/15/2024 174 by Wally Ralph RN Outcome: Adequate for discharge 02/15/2024 121 by Wally Ralph RN Outcome: Progressing as expected Goal: Effective communication 02/15/20241743 by Wally Ralph RN Outcome: Adequate for discharge 02/15/2024 121 by Wally Ralph RN Outcome: Progressing as expected Problem: Nausea/Vomiting Goal: Absence of nausea/vomiting 02/15/20241743 by Wally Ralph RN Outcome: Adequate for discharge 02/15/2024 121 by Wally Ralph RN Outcome: Progressing as expected [facility] 2024-02-15 12:15:34 Problem: Bleeding, Risk of Goal: Absence of impaired coagulation signs and symptoms Outcome: Progressing as expected Goal: Absence of active bleeding Outcome: Progressing as expected Problem: Falls, Risk of Goal: Absence of falls Outcome: Progressing as expected Problem: Pain Goal: Control of pain at or below patient's documented comfort goal Outcome: Progressing as expected Goal: Reduction in pain sensation Outcome: Progressing as expected Problem: Discharge Planning Goal: Adequate for discharge Outcome: Progressing as expected Goal: Effective communication Outcome: Progressing as expected Problem: Discharge Planning Goal: Adequate for discharge Outcome: Progressing as expected Goal: Effective communication Outcome: Progressing as expected Problem: Nausea/Vomiting Goal: Absence of nausea/vomiting Outcome: Progressing as expected [facility] 2024-02-14 23:44:01 Problem: Bleeding, Risk of Goal: Absence of impaired coagulation signs and symptoms Outcome: Progressing as expected Goal: Absence of active bleeding Outcome: Progressing as expected Problem: Falls, Risk of Goal: Absence of falls Outcome: Progressing as expected Problem: Pain Goal: Control of pain at or below patient's documented comfort goal Outcome: Progressing as expected Goal: Reduction in pain sensation Outcome: Progressing as expected Problem: Discharge Planning Goal: Adequate for discharge Outcome: Progressing as expected Goal: Effective communication Outcome: Progressing as expected Problem: Discharge Planning Goal: Adequate for discharge Outcome: Progressing as expected Goal: Effective communication Outcome: Progressing as expected Problem: Nausea/Vomiting Goal: Absence of nausea/vomiting Outcome: Progressing as expected T Jane Costa RN [facility] 2024-02-14 17:46:57 Problem: Bleeding, Risk of Goal: Absence of impaired coagulation signs and symptoms Outcome: Progressing as expected Goal: Absence of active bleeding Outcome: Progressing as expected Problem: Falls, Risk of Goal: Absence of falls Outcome: Progressing as expected Problem: Pain Goal: Control of pain at or below patient's documented comfort goal Outcome: Progressing as expected Goal: Reduction in pain sensation Outcome: Progressing as expected Problem: Discharge Planning Goal: Adequate for discharge Outcome: Progressing as expected Goal: Effective communication Outcome: Progressing as expected Problem: Discharge Planning Goal: Adequate for discharge Outcome: Progressing as expected Goal: Effective communication Outcome: Progressing as expected Problem: Nausea/Vomiting Goal: Absence of nausea/vomiting Outcome: Progressing as expected [facility] 2024-02-14 09:15:43 Summary: Orthostatic VS on 02/14/2024 02/14/24 0800 Vitals Temp source Axillary Pulse 79 Pulse source Apical;Pulse Oximetry Device Apical pulse quality Audible rate equals palpable rate Heart Rate (monitor) 80 Resp 19 BP 120/61 MAP (mmHg) 79 SpO2 98 % Cardiac Monitoring Base Cardiac Rhythm SR Ectopy None 02/14/24 0800 Patient Observation Patient Observations Supine 02/14/24 0820 Vitals Pulse 93 Heart Rate (monitor) 97 Resp 23 BP 101/55 MAP (mmHg) 69 SpO2 95 % Patient Observation Patient Observations Sitting upright on side of bed 02/14/24 0825 Vitals Pulse 89 Heart Rate (monitor) 88 Resp 18 BP 99/57 MAP (mmHg) 71 SpO2 94 % Patient Observation Patient Observations Standing NAD during orthostatics, pt. Stable on feet, denies CP/SOB/dizziness. Xochitl Garces RN [facility] 2024-02-13 21:55:33 Keyla Little is a 63 year old male with Alcohol Abuse (6 beers day), tobacco use history (50 Pack Year hx), CVA, severe right ICA stenosis, HLD, DM-II who presented for Hematemesis. He was recently switched from Eliquis to Brilinta following a CVA earlier this month. S/p IVF 1 L. CTA showed no extravasation of contrast, cirrhotic liver morphology, peripancreatic edema. Endoscopy, however, showed extensive esophageal, gastric, and rectal varices, warranting IR consult for TIPS. Pt underwent TIPS 02/12 and was transferred to MICU for advanced monitoring. [facility] 2024-02-13 12:46:29 Problem: Bleeding, Risk of Goal: Absence of impaired coagulation signs and symptoms Outcome: Progressing as expected Goal: Absence of active bleeding Outcome: Progressing as expected Problem: Falls, Risk of Goal: Absence of falls Outcome: Progressing as expected Problem: Pain Goal: Control of pain at or below patient's documented comfort goal Outcome: Progressing as expected Goal: Reduction in pain sensation Outcome: Progressing as expected Problem: Discharge Planning Goal: Adequate for discharge Outcome: Progressing as expected Goal: Effective communication Outcome: Progressing as expected Problem: Discharge Planning Goal: Adequate for discharge Outcome: Progressing as expected Goal: Effective communication Outcome: Progressing as expected Problem: Nausea/Vomiting Goal: Absence of nausea/vomiting Outcome: Progressing as expected [facility] 2024-02-12 21:25:22 Problem: Bleeding, Risk of Goal: Absence of impaired coagulation signs and symptoms Outcome: Progressing as expected Goal: Absence of active bleeding Outcome: Progressing as expected Problem: Falls, Risk of Goal: Absence of falls Outcome: Progressing as expected Problem: Pain Goal: Control of pain at or below patient's documented comfort goal Outcome: Progressing as expected Goal: Reduction in pain sensation Outcome: Progressing as expected Problem: Discharge Planning Goal: Adequate for discharge Outcome: Progressing as expected Goal: Effective communication Outcome: Progressing as expected Problem: Discharge Planning Goal: Adequate for discharge Outcome: Progressing as expected Goal: Effective communication Outcome: Progressing as expected Problem: Nausea/Vomiting Goal: Absence of nausea/vomiting Outcome: Progressing as expected Janine Dubose RN [facility] 2024-02-12 15:00:37 Problem: Bleeding, Risk of Goal: Absence of impaired coagulation signs and symptoms Outcome: Progressing as expected Goal: Absence of active bleeding Outcome: Progressing as expected Problem: Falls, Risk of Goal: Absence of falls Outcome: Progressing as expected Problem: Pain Goal: Control of pain at or below patient's documented comfort goal Outcome: Progressing as expected Goal: Reduction in pain sensation Outcome: Progressing as expected Problem: Discharge Planning Goal: Adequate for discharge Outcome: Progressing as expected Goal: Effective communication Outcome: Progressing as expected Problem: Nausea/Vomiting Goal: Absence of nausea/vomiting Outcome: Progressing as expected Vivian Ornelas RN [facility] 2024-02-11 19:51:24 Problem: Bleeding, Risk of Goal: Absence of impaired coagulation signs and symptoms Outcome: Progressing as expected Goal: Absence of active bleeding Outcome: Progressing as expected Problem: Falls, Risk of Goal: Absence of falls Outcome: Progressing as expected Problem: Pain Goal: Control of pain at or below patient's documented comfort goal Outcome: Progressing as expected Goal: Reduction in pain sensation Outcome: Progressing as expected Problem: Discharge Planning Goal: Adequate for discharge Outcome: Progressing as expected Goal: Effective communication Outcome: Progressing as expected Problem: Discharge Planning Goal: Adequate for discharge Outcome: Progressing as expected Goal: Effective communication Outcome: Progressing as expected Problem: Nausea/Vomiting Goal: Absence of nausea/vomiting Outcome: Progressing as expected Emory Puentes RN [facility] 2024-02-11 10:52:32 Problem: Bleeding, Risk of Goal: Absence of impaired coagulation signs and symptoms Outcome: Progressing as expected Goal: Absence of active bleeding Outcome: Progressing as expected Problem: Falls, Risk of Goal: Absence of falls Outcome: Progressing as expected Problem: Pain Goal: Control of pain at or below patient's documented comfort goal Outcome: Progressing as expected Goal: Reduction in pain sensation Outcome: Progressing as expected Problem: Discharge Planning Goal: Adequate for discharge Outcome: Progressing as expected Goal: Effective communication Outcome: Progressing as expected Problem: Discharge Planning Goal: Adequate for discharge Outcome: Progressing as expected Goal: Effective communication Outcome: Progressing as expected Problem: Nausea/Vomiting Goal: Absence of nausea/vomiting Outcome: Progressing as expected Albino Caba RN [facility] 2024-02-11 08:05:30 Report rec'd from SOLANGE MALIK. Pt is AAOX4, NPO MN, pt completed bowel prep, reports clear stools, no ISO. Yaneli Hunt RN [facility] 2024-02-10 22:44:40 Problem: Bleeding, Risk of Goal: Absence of impaired coagulation signs and symptoms Outcome: Progressing as expected Goal: Absence of active bleeding Outcome: Progressing as expected Problem: Falls, Risk of Goal: Absence of falls Outcome: Progressing as expected Problem: Pain Goal: Control of pain at or below patient's documented comfort goal Outcome: Progressing as expected Goal: Reduction in pain sensation Outcome: Progressing as expected Problem: Discharge Planning Goal: Adequate for discharge Outcome: Progressing as expected Goal: Effective communication Outcome: Progressing as expected Problem: Discharge Planning Goal: Adequate for discharge Outcome: Progressing as expected Goal: Effective communication Outcome: Progressing as expected Problem: Nausea/Vomiting Goal: Absence of nausea/vomiting Outcome: Progressing as expected [facility] 2024-02-10 18:30:31 Attempted to call report to [facility] and the nurse stated they were having a rapid response and to call later. Let Howard, the charge nurse, know that we may need to assign the patient to a nurse on the unit until [facility]A is available. Will try again when the night nurse comes in at 1845. [facility] 2024-02-10 07:51:07 Problem: Bleeding, Risk of Goal: Absence of impaired coagulation signs and symptoms Outcome: Progressing as expected Goal: Absence of active bleeding Outcome: Progressing as expected Problem: Falls, Risk of Goal: Absence of falls Outcome: Progressing as expected Problem: Pain Goal: Control of pain at or below patient's documented comfort goal Outcome: Progressing as expected Goal: Reduction in pain sensation Outcome: Progressing as expected Problem: Discharge Planning Goal: Adequate for discharge Outcome: Progressing as expected Goal: Effective communication Outcome: Progressing as expected Problem: Discharge Planning Goal: Adequate for discharge Outcome: Progressing as expected Goal: Effective communication Outcome: Progressing as expected Problem: Nausea/Vomiting Goal: Absence of nausea/vomiting Outcome: Progressing as expected [facility] 2024-02-09 16:00:15 Problem: Bleeding, Risk of Goal: Absence of impaired coagulation signs and symptoms Outcome: Progressing as expected Goal: Absence of active bleeding Outcome: Progressing as expected Problem: Falls, Risk of Goal: Absence of falls Outcome: Progressing as expected Problem: Pain Goal: Control of pain at or below patient's documented comfort goal Outcome: Progressing as expected Goal: Reduction in pain sensation Outcome: Progressing as expected Problem: Discharge Planning Goal: Adequate for discharge Outcome: Progressing as expected Goal: Effective communication Outcome: Progressing as expected [facility] 2024-02-09 13:50:47 Called 8D to inform RN of rejected specimens and to call for new lab kits and recollect. Katelin Franklin RN [facility] 2024-02-09 13:25:00 Patient transported with all belongings, ambubag, zoll, weekend caregiver, on octreotide and protonix drips, on room air on monitor. Pt tolerated well. [facility] 2024-02-09 13:10:00 Report given to Kaila MALIK [facility] 2024-02-09 07:03:29 Report given to Katelin MALIK at this time. Rns discussed patient condition and patient care Andi Collins RN [facility] 2024-02-09 05:36:33 Repeat CBC drawn at this time due to delayed results in lab [facility] 2024-02-09 04:41:41 Lab receiving reports they are currently going through labs sent at this time, unsure if specimen was received. ED tube system currently jammed at this time. Violetta Mayfield RN [facility] 2024-02-09 04:09:01 CBC hemolyzed. Re-collected. Lorenzo Cazares RN [facility] 2024-02-09 03:25:39 Pt provided with urinal at this time, returned from CT [facility] 2024-02-09 03:08:53 Pt to imaging T [facility] 2024-02-09 02:20:00 Keyla Little is a 63 year old male to ed with cc of hematemesis that began at 0000. States that he is on brillinta following a CVA this past month. Patient noted to be pale in color. This rn receives patient from trauma room 103 post emergent transfusion of 1 unit of uncrossmatched blood, zofran, and 2 L of NS. Patient states that he no longer feels N/V. Patient has at bedside. RR even and unlabored. NAD noted. Aaox4. Patient placed on monitor in room 108 and updated on poc [facility] 2024-02-09 01:53:57 Unit of blood complete, patient tolerating well. Patient appears with no signs of transfusion reaction. Kennedy Harley RN [facility] 2024-02-09 01:51:36 ED MD at bedside with . ED MD completing blood consent form at bedside. [facility] 2024-02-09 01:39:38 Patients to bedside, consenting to blood transfusion. [facility] 2024-02-09 01:32:13 ED MD, RN x4, and ERT at bedside. [facility] 2024-02-09 01:28:50 Patient to 103 via wheelchair. ED MD notified of arrival. Keyla Little is a 63 year old male presenting to the ED with cc of abdominal pain. Patient vomiting blood, witnessed upon arrival. Patient pale in appearance. Patient hypotensive, slow to respond, slurring words. Patient Aaox4. Patient's pmh of stroke, currently on blood thinners. Patient reports throwing up blood approx. 3-4x tonight. [facility] 2024-02-09 01:26:05 Keyla Little is a 63 year old male arrived to triage with complaint of vomiting blood since midnight. Patient is on Brilinta following CVA earlier this month. Presents with large quantity of bright red blood in trash bag. Pale in color. To 103 for further observation. [facility] Shayna Marquez RN [facility] 2024-02-09 01:22:00 Associated Order(s): EKG-12 Lead ROUTINE ONCE Pre-Procedure Diagnose(s): Hypotension due to hypovolemia Post-Procedure Diagnose(s): Hypotension due to hypovolemia [facility] Emergency Department Note Patient Name: Keyla Little Date of : 1960 63 year old male Treatment Room: Primary Care Physician: Shaheen Garcia Patient Escorted by: Family [5] Mode of Arrival: Personal means [1] EMS Treatment Prior to ED Arrival: BENEFITS ADMINISTRATOR treatment: None Travel and Exposure Screening: Symptoms Does patient have any of these symptoms?: (not recorded) Exposure Screening Has patient had contact with someone with a communicable disease in the last month?: (not recorded) Diseases exposed to:: (not recorded) Is Patient ?: (not recorded) Exposure Date: (not recorded) Chief Complaint: Chief Complaint Patient presents with Other Vomiting blood History of Present Illness: Patient arrives in the emergency department with a garbage sac full of blood, appears to be over 1 L. States that he is recently been switched from Eliquis to Brilinta for an unclear reason. He stopped drinking alcohol 6 weeks ago. He stopped smoking 6 weeks ago. He did not drink anything today. He went out to [place] and had lunch with friends, there was no unusual circumstances throughout the rest of the day. Then this evening he got up to use the bathroom he felt nauseated and began vomiting what he reports is straight blood. This happened 3 separate times. When he arrived in the emergency department he was brought directly to the emergency bay as he is hypotensive and pale. He is come with the bag of at least 1 L of what appears to be bloody vomit. States he has never had this happen before. Does not have a history of GERD, does not have a history of alcoholism or esophageal varices. Past Medical History/Immunizations: History reviewed. No pertinent past medical history. Tetanus received in last 5 years: Unknown Childhood immunizations: Up-to-date Allergies: No Known Allergies Past Social History: Tobacco Use Former Smokeless Tobacco: Never used smokeless tobacco. Alcohol Use Yes. Past Surgical History: Past Surgical History: Procedure Laterality Date RADIUS AND ULNA ORIF Right 02/25/2016 Surgeon: Ericka Bergman; Location: [facility] [place] SPLINT APPLICATION Right 02/25/2016 Surgeon: Ericka Bergman; Location: [facility] ULNA ORIF Right 10/10/2016 Surgeon: Cuba Salgado MD; Location: [facility] ULNAR NON-UNION TAKEDOWN Right 10/10/2016 Surgeon: Cuba Salgado MD; Location: [facility] Review of Systems: Review of Systems Constitutional: Positive for fatigue. Negative for chills and fever. HENT: Negative for ear pain and sore throat. Respiratory: Negative for cough, chest tightness, shortness of breath and wheezing. Cardiovascular: Negative for chest pain, palpitations and leg swelling. Gastrointestinal: Positive for nausea and vomiting. Negative for abdominal pain, constipation and diarrhea. Genitourinary: Negative for dysuria and flank pain. Musculoskeletal: Negative for arthralgias, gait problem, myalgias and neck pain. Skin: Negative for rash. Neurological: Negative for dizziness, syncope, weakness and headaches. All other systems reviewed and are negative. Hematological: Does not bruise/bleed easily. Physical Exam: ED Triage Vitals Weight -- Actual or estimated -- Height 02/09/24 0237 1.727 m (5' 8") BP 02/09/24 0129 (!) 66/39 Pulse 02/09/24 0129 88 Resp 02/09/24 0129 22 Temp 02/09/24 0129 36.3 ?C (97.3 ?F) Temp source 02/09/24 012 Oral SpO2 02/09/24128 100 % Measured on 02/09/24128 Room air Physical Exam Vitals reviewed. Constitutional: General: He is in acute distress. Appearance: Normal appearance. He is well-developed. He is ill-appearing and diaphoretic. He is not toxic-appearing. HENT: Head: Normocephalic and atraumatic. Right Ear: External ear normal. Left Ear: External ear normal. Nose: Nose normal. No rhinorrhea. Mouth/Throat: Mouth: Mucous membranes are moist. Pharynx: No oropharyngeal exudate or posterior oropharyngeal erythema. Comments: Dried blood noted around mouth Eyes: General: Right eye: No discharge. Left eye: No discharge. Conjunctiva/sclera: Conjunctivae normal. Cardiovascular: Rate and Rhythm: Normal rate and regular rhythm. Pulses: Normal pulses. Pulmonary: Effort: Pulmonary effort is normal. No respiratory distress. Breath sounds: Normal breath sounds. No wheezing. Chest: Chest wall: No tenderness. Abdominal: General: Bowel sounds are normal. There is no distension. Palpations: Abdomen is soft. Tenderness: There is no abdominal tenderness. There is no right CVA tenderness, left CVA tenderness, guarding or rebound. Comments: Bruising noted to the left lower quadrant of the abdomen nontender Musculoskeletal: General: No swelling, tenderness or signs of injury. Normal range of motion. Cervical back: Normal range of motion and neck supple. Right lower leg: No edema. Left lower leg: No edema. Lymphadenopathy: Cervical: No cervical adenopathy. Skin: General: Skin is warm. Capillary Refill: Capillary refill takes less than 2 seconds. Findings: No rash. Neurological: General: No focal deficit present. Mental Status: He is alert and oriented to person, place, and time. GCS: GCS eye subscore is 4. GCS verbal subscore is 5. GCS motor subscore is 6. Sensory: No sensory deficit. Motor: No weakness or abnormal muscle tone. Gait: Gait normal. Psychiatric: Mood and Affect: Mood normal. Behavior: Behavior normal. Thought Content: Thought content normal. Judgment: Judgment normal. Radiology: CT ANGIOGRAM ABDOMEN/PELVIS Preliminary Result EXAM: CT ABDOMEN AND PELVIS WITH AND WITHOUT CONTRAST; GI BLEEDING PROTOCOL CT ANGIOGRAM ABDOMEN/PELVIS HISTORY: 63 years-old; Male; GI bleed, lower COMPARISON: None TECHNIQUE AND FINDINGS: Multiphasic axial CT imaging from the level of the lung bases through the pubic symphysis was performed before and after the uncomplicated administration of intravenous Isovue contrast. Arterial, portal venous and delayed phase images as per GI protocol were obtained. Coronal and sagittal reconstructions were obtained. Auto mA and/or iterative reconstruction were used to reduce radiation dose. FINDINGS: LOWER THORAX: The lungs bases are clear. No cardiomegaly. LIVER: There is 2.5 cm linear hyperdensity of unknown clinical significance at hepatic segment V. No focal hepatic lesions. The liver demonstrates diffusely nodular contour, compatible with cirrhotic morphology. GALLBLADDER AND BILIARY TREE: No biliary ductal dilation. No gallbladder wall thickening. SPLEEN: The spleen is severely enlarged measuring about 19.5 cm in longitudinal length. PANCREAS: Mild diffuse peripancreatic edema is seen. ADRENAL GLANDS: No adrenal nodules. KIDNEYS: No hydronephrosis, stones, or masses. PERITONEUM AND RETROPERITONEUM: No free air or fluid. Mild generalized mesenteric edema. LYMPH NODES: Enlarged peripancreatic or duodenal groove lymph node measuring 2.5 x 2 cm (series #4 image 120). GI TRACT: No dilation or wall thickening. No accumulation of contrast within the bowel to indicate a site of acute gastrointestinal hemorrhage. No abnormally decreased enhancement of bowel wall on the portal venous phase to suspect ischemia. No dilation or wall thickening. Sigmoid colonic diverticulosis is seen without evidence of acute diverticulitis. PELVIS/BLADDER: Bladder is unremarkable. Prostate measures about 5 cm in transverse at the level of femoral heads, which is mildly enlarged. VESSELS: Scattered calcified and noncalcified atherosclerotic plaques are seen in the abdominal aorta. Ulcerated plaque results in short segment moderate narrowing at the proximal left common iliac artery. BONES AND SOFT TISSUES: No suspicious lytic or sclerotic bony lesions. IMPRESSION 1. No intraluminal extravasation of contrast to indicate a source of acute gastrointestinal bleeding. 2. Cirrhotic liver morphology with evidence of portal hypertension noted in the form of severe splenomegaly, mild generalized mesenteric edema. 3. Peripancreatic edema is seen which may be a sequela of portal hypertension or represent acute interstitial pancreatitis. Clinical correlation with physical examination and laboratory evaluation is suggested. Preliminary Report Dictated by Resident: Daniella Mathis Lab Results: Lab Results CBC WITH DIFF - Abnormal Result Value Ref Range WBC 11.69 (*) 4.20 - 10.70 10*3/?L RBC 3.38 (*) 4.26 - 5.52 10*6/?L HGB 9.3 (*) 12.2 - 16.4 g/dL HCT 28.9 (*) 38.4 - 49.3 % MCV 85.5 81.7 - 95.6 fL MCH 27.5 26.1 - 32.7 pg MCHC 32.2 31.2 - 35.0 g/dL RDW-SD 41.9 38.5 - 51.6 fL RDW-CV 13.5 12.1 - 15.4 % PLT 218 150 - 328 10*3/?L MPV 11.7 9.8 - 13.0 fL NRBC/100 WBC 0.0 0.0 - 10.0 /100 WBCs NRBC x10 3 <0.01 10*3/?L GRAN MAT (NEUT) % 45.1 % IMM GRAN % 0.40 % LYMPH % 41.9 % MONO % 9.2 % EOS % 2.7 % BASO % 0.7 % GRAN MAT x10 3 (ANC) 5.28 1.99 - 6.95 10*3/uL IMM GRAN x10 3 0.05 0.00 - 0.06 10*3/uL LYMPH x10 3 4.90 (*) 1.09 - 3.23 10*3/uL MONO x10 3 1.07 (*) 0.36 - 1.02 10*3/uL EOS x10 3 0.31 0.06 - 0.53 10*3/uL BASO x10 3 0.08 0.01 - 0.09 10*3/uL REACT LYMPHS Rare ACTIVATED PARTIAL THRMPLAS KIMI - Abnormal APTT Patient 21 (*) 26 - 36 Seconds COMP. METABOLIC PANEL (43357) - Abnormal NA 139 135 - 145 mmol/L K 3.7 3.5 - 5.0 mmol/L CL 107 98 - 108 mmol/L CO2 TOTAL 27 23 - 31 mmol/L AGAP 5 2 - 16 BUN 15 7 - 23 mg/dL GLUCOSE 269 (*) 70 - 110 mg/dL CREATININE 1.07 0.60 - 1.25 mg/dL TOTAL BILI 0.5 0.1 - 1.1 mg/dL CALCIUM 8.8 8.6 - 10.6 mg/dL T PROTEIN 6.9 6.3 - 8.2 g/dL ALBUMIN 3.5 3.5 - 5.0 g/dL ALK PHOS 42 34 - 122 U/L ALTv 24 5 - 50 U/L AST(SGOT) 28 13 - 40 U/L eGFR 79.0 mL/min/1.73m2 POCT GLUCOSE(AGE >30DAYS) - Abnormal POCT Glu (age>30days) 216 (*) 70 - 110 mg/dL POCT GLUCOSE (AUTOMATED) - Abnormal POCT GLU 216 (*) 70 - 110 mg/dL CBC WITHOUT DIFF - Abnormal WBC 8.22 4.20 - 10.70 10*3/?L RBC 3.18 (*) 4.26 - 5.52 10*6/?L HGB 8.7 (*) 12.2 - 16.4 g/dL HCT 27.2 (*) 38.4 - 49.3 % MCH 27.4 26.1 - 32.7 pg MCV 85.5 81.7 - 95.6 fL MCHC 32.0 31.2 - 35.0 g/dL PLT 100 (*) 150 - 328 10*3/?L MPV 12.6 9.8 - 13.0 fL RDW-CV 13.5 12.1 - 15.4 % RDW-SD 41.9 38.5 - 51.6 fL NRBC x10 3 <0.01 10*3/?L NRBC/100 WBC 0.0 0.0 - 10.0 /100 WBCs IPF % LIPASE - Abnormal LIPASE 489 (*) 0 - 220 U/L PROTHROMBIN TIME / INR - Normal PROTIME PATIENT 11.7 10.1 - 12.6 Seconds INR 1.0 TYPE AND SCREEN ABO & RH A NEGATIVE IAT Negative ETHANOL ALCOHOL <10 mg/dL CBC WITHOUT DIFF PREPARE PACKED RBC Unit Blood Type O Pos ISBT Blood Type Code 5100 Unit Number [id number] Blood Expiration Date & Time [id number] Status Information Issued Product Identification Red Blood Cells Product Code [id number] EKG: If EKG completed, see Procedure Note. Orders and Treatments: Orders Placed This Encounter Procedures CT ANGIOGRAM ABDOMEN/PELVIS CBC WITH DIFF PROTHROMBIN TIME / INR ACTIVATED PARTIAL THRMPLAS KIMI Type and Screen - ONCE Routine COMP. METABOLIC PANEL (04361) ETHANOL Transfusion Reaction Investigation Urinalysis (Spun) POCT GLUCOSE(AGE >30DAYS) POCT GLUCOSE (AUTOMATED) Cbc without Diff LIPASE Cbc without Diff Consult Gastroenterology Orders Placed This Encounter Medications NaCl 0.9% (NS) bolus infusion 1,000 mL pantoprazole (PROTONIX) 80 mg in NaCl 0.9% (NS) 20 mL syringe pantoprazole (PROTONIX) 80 mg in NaCl 0.9%(NS) 500 mL IV infusion (CNR) ondansetron (ZOFRAN (PF)) injection 4 mg NaCl 0.9% (NS) bolus infusion 1,000 mL NaCl 0.9% (NS) bolus infusion 1,000 mL iohexol (OMNIPAQUE 350 BULK-100 mL) injection 100 mL First Provider Eval: ED Events Date/Time Event User Comments 02/09/24 013 Medical Screening Begins RJ HOLLOWAY MD -- 02/09/24 013 First Provider Evaluation RJ HOLLOWAY MD -- ED COURSE Diagnosis/Impression as of 02/09/24 0602 Upper GI bleed Hypotension due to hypovolemia Procedures: EKG-12 Lead ROUTINE ONCE Date/Time: 02/09/2024 6:01 AM Performed by: Rj Holloway MD Authorized by: Rj Holloway MD Rate: ECG rate: 79 ECG rate assessment: normal Rhythm: Rhythm: sinus rhythm Ectopy: Ectopy: none QRS: QRS axis: Normal QRS conduction: normal ST segments: ST segments: Normal T waves: T waves: normal MDM: Medical Decision Making Patient presents emergency department blood pressure 60/40 with a bag full of blood which he reports he vomited, he is very pale. He is having a very hard time staying awake, he is not making a lot of sense when speaking with him. He defers to his , who states the patient does not have a history of alcoholism. He has not drank any alcohol in at least 6 weeks. He did not drink anything today. He has never had any problems with GERD. He has taken Eliquis as well as Brilinta starting 6 weeks ago. He has had 3 episodes of vomiting which they described straight blood in the past 1 hour. With the patient being pale, diaphoretic, altered mental status appears to require emergent treatment with uncrossed blood. Patient and patient's have consented, has signed consent form. Patient received uncrossed blood as well as 2 L of normal saline. Will also treat the patient with Zofran, as well as Protonix. No history of esophageal varices or alcoholism do not feel that octreotide is necessitated at this time. Will also order a CT angio of the abdomen pelvis. 2:14 AM Patient appears significantly improved after 1 bag of packed red blood cells, 2 L of fluid. His blood pressure is now 93/55. His color is much improved. He is no longer diaphoretic. He is speaking normally with no signs of confusion. 5:36 AM Lab having significant problems with repeat CBC, have asked for the third recollect. Patient's blood pressure which was increasing and is actually started to decrease again. Third repeat CBC has been sent. 5:51 AM Patient's repeat CBC does show that he has had a drop of his hemoglobin. This is despite receiving 1 unit of emergency IV blood transfusion. Patient's blood pressure has began to dip again systolic is currently 98/74. With patient's having a repeat drop in blood pressure with showing signs of dropping hemoglobin. Case has been discussed with the on-call MICU team, will accept the patient for further treatment evaluation. I have also paged the gastroenterology team so they can also evaluate the patient in the emergency department or in the ICU. Awaiting to hear back from gastroenterology. Problems Addressed: Hypotension due to hypovolemia: acute illness or injury that poses a threat to life or bodily functions Upper GI bleed: acute illness or injury that poses a threat to life or bodily functions Amount and/or Complexity of Data Reviewed Labs: ordered. Radiology: ordered. Discussion of management or test interpretation with external provider(s): MICU - will admit GI - pending evaluation Risk Prescription drug management. Decision regarding hospitalization. Flowsheet Documentation: Scoring Tools: No data recorded Disposition/Condition: ED Disposition ED Disposition Admit - ICU Condition Stable Comment -- Discharge Medications: Patient's Medications START taking these medications No medications on file CONTINUE taking these medications which have NOT CHANGED ASPIRIN 325 MG TABLET Take 1 tablet by mouth in the morning for 180 days. ATORVASTATIN (LIPITOR) 40 MG TABLET Take 1 tablet by mouth at bedtime. METFORMIN 500 MG/5 ML SSRR Take 500 mg by mouth in the morning. NICOTINE 14 MG/24 HR PATCH Apply 1 Patch to area(s) every 24 (twenty-four) hours. TICAGRELOR (BRILINTA) 90 MG TABLET Take 1 tablet by mouth in the morning and 1 tablet in the evening. Do all this for 90 days. START taking Modified Medications as Prescribed No medications on file STOP taking these medications No medications on file Follow-up: Electronically signed by: Rj Holloway MD 02/09/24627 [facility] 2024-02-03 12:40:30 Problem: Discharge Planning Goal: Able to perform ADL 02/03/2024 1240 by Marilyn Tang RN Outcome: Adequate for discharge 02/03/2024 0756 by Marilyn Tang RN Outcome: Progressing as expected Goal: Knowledge of medication management 02/03/2024 1240 by Marilyn Tang RN Outcome: Adequate for discharge 02/03/2024 0756 by Marilyn Tang RN Outcome: Progressing as expected Goal: Knowledge of need for follow-up care 02/03/2024 1240 by Marilyn Tang RN Outcome: Adequate for discharge 02/03/2024 0756 by Marilyn Tang RN Outcome: Progressing as expected Goal: Knowledge of personal stroke risk factors 02/03/2024 1240 by Marilyn Tang RN Outcome: Adequate for discharge 02/03/2024 0756 by Marilyn Tang RN Outcome: Progressing as expected Goal: Knowledge of stroke warning signs 02/03/2024 1240 by Marilyn Tang RN Outcome: Adequate for discharge 02/03/2024 0756 by Marilyn Tang RN Outcome: Progressing as expected Goal: Facility placement (SNF, LTAC, LTC) appropriate for patient's abilities. 02/03/2024 1240 by Marilyn Tang RN Outcome: Adequate for discharge 02/03/2024 0756 by Marilyn Tang RN Outcome: Progressing as expected Problem: Aspiration, Risk of Goal: Absence of aspiration 02/03/2024 1240 by Marilyn Tang RN Outcome: Adequate for discharge 02/03/2024 0756 by Marilyn Tang RN Outcome: Progressing as expected Problem: Complications of thrombolytic administration (risk or actual) Goal: Absence of impaired coagulation signs and symptoms 02/03/2024 1240 by Marilyn Tang RN Outcome: Adequate for discharge 02/03/2024 0756 by Marilyn Tang RN Outcome: Progressing as expected Goal: Absence of active bleeding 02/03/2024 1240 by Marilyn Tang RN Outcome: Adequate for discharge 02/03/2024 0756 by Marilyn Tang RN Outcome: Progressing as expected Goal: Absence of angioedema signs & symptoms 02/03/2024 1240 by Marilyn Tang RN Outcome: Adequate for discharge 02/03/2024 0756 by Marilyn Tang RN Outcome: Progressing as expected Problem: Falls, Risk of Goal: Absence of falls 02/03/2024 1240 by Marilyn Tang RN Outcome: Adequate for discharge 02/03/2024 0756 by Marilyn Tang RN Outcome: Progressing as expected Problem: Tissue Perfusion, Cerebral - Altered Goal: Absence of continued neurologic deterioration signs and symptoms 02/03/2024 1240 by Marilyn Tang RN Outcome: Adequate for discharge 02/03/2024 0756 by aMrilyn Tang RN Outcome: Progressing as expected ierra Tagn RN [facility] 2024-02-03 07:56:36 Problem: Discharge Planning Goal: Able to perform ADL Outcome: Progressing as expected Goal: Knowledge of medication management Outcome: Progressing as expected Goal: Knowledge of need for follow-up care Outcome: Progressing as expected Goal: Knowledge of personal stroke risk factors Outcome: Progressing as expected Goal: Knowledge of stroke warning signs Outcome: Progressing as expected Goal: Facility placement (SNF, LTAC, LTC) appropriate for patient's abilities. Outcome: Progressing as expected Problem: Aspiration, Risk of Goal: Absence of aspiration Outcome: Progressing as expected Problem: Complications of thrombolytic administration (risk or actual) Goal: Absence of impaired coagulation signs and symptoms Outcome: Progressing as expected Goal: Absence of active bleeding Outcome: Progressing as expected Goal: Absence of angioedema signs & symptoms Outcome: Progressing as expected Problem: Falls, Risk of Goal: Absence of falls Outcome: Progressing as expected Problem: Tissue Perfusion, Cerebral - Altered Goal: Absence of continued neurologic deterioration signs and symptoms Outcome: Progressing as expected ierra [facility] 2024-02-02 21:40:08 Problem: Discharge Planning Goal: Able to perform ADL Outcome: Progressing as expected Goal: Knowledge of medication management Outcome: Progressing as expected Goal: Knowledge of need for follow-up care Outcome: Progressing as expected Goal: Knowledge of personal stroke risk factors Outcome: Progressing as expected Goal: Knowledge of stroke warning signs Outcome: Progressing as expected Goal: Facility placement (SNF, LTAC, LTC) appropriate for patient's abilities. Outcome: Progressing as expected Problem: Aspiration, Risk of Goal: Absence of aspiration Outcome: Progressing as expected Problem: Complications of thrombolytic administration (risk or actual) Goal: Absence of impaired coagulation signs and symptoms Outcome: Progressing as expected Goal: Absence of active bleeding Outcome: Progressing as expected Goal: Absence of angioedema signs & symptoms Outcome: Progressing as expected Problem: Falls, Risk of Goal: Absence of falls Outcome: Progressing as expected Problem: Tissue Perfusion, Cerebral - Altered Goal: Absence of continued neurologic deterioration signs and symptoms Outcome: Progressing as expected Alberto Bhardwaj RN [facility] 2024-02-02 08:06:18 Problem: Discharge Planning Goal: Able to perform ADL Outcome: Progressing as expected Goal: Knowledge of medication management Outcome: Progressing as expected Goal: Knowledge of need for follow-up care Outcome: Progressing as expected Goal: Knowledge of personal stroke risk factors Outcome: Progressing as expected Goal: Knowledge of stroke warning signs Outcome: Progressing as expected Goal: Facility placement (SNF, LTAC, LTC) appropriate for patient's abilities. Outcome: Progressing as expected Problem: Aspiration, Risk of Goal: Absence of aspiration Outcome: Progressing as expected Problem: Complications of thrombolytic administration (risk or actual) Goal: Absence of impaired coagulation signs and symptoms Outcome: Progressing as expected Goal: Absence of active bleeding Outcome: Progressing as expected Goal: Absence of angioedema signs & symptoms Outcome: Progressing as expected Problem: Falls, Risk of Goal: Absence of falls Outcome: Progressing as expected Problem: Tissue Perfusion, Cerebral - Altered Goal: Absence of continued neurologic deterioration signs and symptoms Outcome: Progressing as expected ierra [facility] 2024-02-02 01:24:54 Problem: Discharge Planning Goal: Able to perform ADL Outcome: Progressing as expected Goal: Knowledge of medication management Outcome: Progressing as expected Goal: Knowledge of need for follow-up care Outcome: Progressing as expected Goal: Knowledge of personal stroke risk factors Outcome: Progressing as expected Goal: Knowledge of stroke warning signs Outcome: Progressing as expected Goal: Facility placement (SNF, LTAC, LTC) appropriate for patient's abilities. Outcome: Progressing as expected Problem: Aspiration, Risk of Goal: Absence of aspiration Outcome: Progressing as expected Problem: Complications of thrombolytic administration (risk or actual) Goal: Absence of impaired coagulation signs and symptoms Outcome: Progressing as expected Goal: Absence of active bleeding Outcome: Progressing as expected Goal: Absence of angioedema signs & symptoms Outcome: Progressing as expected Problem: Falls, Risk of Goal: Absence of falls Outcome: Progressing as expected Problem: Tissue Perfusion, Cerebral - Altered Goal: Absence of continued neurologic deterioration signs and symptoms Outcome: Progressing as expected [facility] 2024-02-01 09:00:00 NEUROENDOVASCULAR SERVICE - BRIEF INVASIVE PROCEDURE NOTE Indication: Severe right ICA stenosis Procedure Performed: Diagnostic Cerebral Angiogram Access site: Right groin Attending: Josh Haines MD Findings/Results: Severe right ICA stenosis with string sign with filing defect . This is suggestive of underlying thrombus Delayed flow in the right ICA which is otherwise patent Right MCA is filled via good caliber ACOM on left ICA injection Medications given: Moderate Sedation Patient Transferred from :Neuro-angiography suite PACU Condition: Stable Complications: None [facility] 2024-02-01 08:40:58 REMOVED THROMBOLYTIC ADMINISTRATION CARE PLAN, ADDED BY ERROR ON ADMISSION [facility] Emmy Dunn RN [facility] 2024-02-01 00:45:41 Problem: Discharge Planning Goal: Able to perform ADL Outcome: Progressing as expected Goal: Knowledge of medication management Outcome: Progressing as expected Goal: Knowledge of need for follow-up care Outcome: Progressing as expected Goal: Knowledge of personal stroke risk factors Outcome: Progressing as expected Goal: Knowledge of stroke warning signs Outcome: Progressing as expected Goal: Facility placement (SNF, LTAC, LTC) appropriate for patient's abilities. Outcome: Progressing as expected Problem: Aspiration, Risk of Goal: Absence of aspiration Outcome: Progressing as expected Problem: Complications of thrombolytic administration (risk or actual) Goal: Absence of impaired coagulation signs and symptoms Outcome: Progressing as expected Goal: Absence of active bleeding Outcome: Progressing as expected Goal: Absence of angioedema signs & symptoms Outcome: Progressing as expected Problem: Tissue Perfusion, Cerebral - Altered Goal: Absence of continued neurologic deterioration signs and symptoms Outcome: Progressing as expected Problem: Falls, Risk of Goal: Absence of falls Outcome: Progressing as expected Ivan Bae RN [facility] 2024-01-31 18:22:15 Problem: Discharge Planning Goal: Able to perform ADL Outcome: Progressing as expected Goal: Knowledge of medication management Outcome: Progressing as expected Goal: Knowledge of need for follow-up care Outcome: Progressing as expected Goal: Knowledge of personal stroke risk factors Outcome: Progressing as expected Goal: Knowledge of stroke warning signs Outcome: Progressing as expected Goal: Facility placement (SNF, LTAC, LTC) appropriate for patient's abilities. Outcome: Progressing as expected Problem: Aspiration, Risk of Goal: Absence of aspiration Outcome: Progressing as expected Problem: Complications of thrombolytic administration (risk or actual) Goal: Absence of impaired coagulation signs and symptoms Outcome: Progressing as expected Goal: Absence of active bleeding Outcome: Progressing as expected Goal: Absence of angioedema signs & symptoms Outcome: Progressing as expected Problem: Falls, Risk of Goal: Absence of falls Outcome: Progressing as expected Problem: Tissue Perfusion, Cerebral - Altered Goal: Absence of continued neurologic deterioration signs and symptoms Outcome: Progressing as expected [facility] 2024-01-31 16:58:50 Pt report given to HELENA Driver with time for questions to be asked. Pt went to MRI then will go straight to his new room. Cathy Morales RN [facility] 2024-01-31 16:04:44 Pt to room now, aaox4, ambulatory. EKG being completed. Pt denies any pain. Just lethargic. [facility] 2024-01-31 15:35:12 Keyla Little is a 63 year old male presents to ED accompanied by family c/o slurred speech, left side numbness and headache since 199. Pt reports just had a stroke 1 month ago and feels like the symptoms are the same as last time. Mild slurred speech noted in triage. Code stroke activated, pt to CT then room 104. Pt is aox4 with gcs 15 skin warm and dry resp even and unlabored. Airway intact, managing secretions. Shama Ferrer RN [facility] 2024-01-31 15:27:00 [facility] Emergency Department Note Patient Name: Keyla Little Date of : 1960 63 year old male Treatment Room: [address] [place] [address] Primary Care Physician: Arielel Benitez Patient Escorted by: Friend [6] Mode of Arrival: Personal means [1] EMS Treatment Prior to ED Arrival: Travel and Exposure Screening: Symptoms Does patient have any of these symptoms?: (not recorded) Exposure Screening Has patient had contact with someone with a communicable disease in the last month?: (not recorded) Diseases exposed to:: (not recorded) Is Patient ?: (not recorded) Exposure Date: (not recorded) Chief Complaint: Chief Complaint Patient presents with Numbness History of Present Illness: Patient here for left sided facial droop and left sided arm and leg weakness aroun 2 am today with slurred speech. Patient had similar symptoms a month ago and was admitted here to the Neurology service and dx with a CVA. Patient found to have a ICA vessel stenosis, but no intervention done due to rapid resolution of symptoms. Denies PEREYRA, dizziness, fevers, cough, CP, SOB, abdominal pain, vomiting, diarrhea. Past Medical History/Immunizations: No past medical history on file. Tetanus received in last 5 years: Unknown Allergies: No Known Allergies Past Social History: Tobacco Use Former Smokeless Tobacco: Never used smokeless tobacco. Alcohol Use Yes. Past Surgical History: Past Surgical History: Procedure Laterality Date RADIUS AND ULNA ORIF Right 02/25/2016 Surgeon: Ericka Bergman; Location: [facility] SPLINT APPLICATION Right 02/25/2016 Surgeon: Ericka Bergman; Location: [facility] ULNA ORIF Right 10/10/2016 Surgeon: Cuba Salgado MD; Location: [facility] ULNAR NON-UNION TAKEDOWN Right 10/10/2016 Surgeon: Cuba Salgado MD; Location: [facility] Location Review of Systems: Review of Systems Constitutional: Negative for activity change, appetite change, chills, diaphoresis, fatigue, fever, unexpected weight change, weight gain and weight loss. HENT: Negative for congestion, dental problem, drooling, ear discharge, ear pain, facial swelling, hearing loss, mouth sores, nosebleeds, postnasal drip, rhinorrhea, sinus pressure, sneezing, sore throat, tinnitus, trouble swallowing and voice change. Eyes: Negative for photophobia, pain, discharge, redness, itching and visual disturbance. Respiratory: Negative for apnea, cough, choking, chest tightness, shortness of breath, wheezing and stridor. Breasts: Negative for discharge, mass, pain and unequal size. Cardiovascular: Negative for chest pain, palpitations and leg swelling. Gastrointestinal: Negative for abdominal distention, abdominal pain, anal bleeding, blood in stool, constipation, diarrhea, nausea, rectal pain and vomiting. Genitourinary: Negative for bladder incontinence, dysuria, urgency, polyuria, frequency, hematuria, flank pain, decreased urine volume, discharge, penile swelling, scrotal swelling, enuresis, difficulty urinating, genital sores, penile pain, testicular pain and nocturia. Musculoskeletal: Negative for arthralgias, back pain, gait problem, joint swelling, myalgias, neck pain and neck stiffness. Skin: Negative for color change, pallor, rash and wound. Neurological: Positive for speech difficulty, weakness and numbness. Negative for dizziness, tremors, seizures, syncope, facial asymmetry, light-headedness and headaches. Psychiatric/Behavioral: Negative for agitation, behavioral problems, confusion, decreased concentration, dysphoric mood, hallucinations, self-injury, sleep disturbance and suicidal ideas. The patient is not nervous/anxious and is not hyperactive. Hematological: Negative for adenopathy, cold intolerance and heat intolerance. Does not bruise/bleed easily. Endocrine: Negative for goiter, hair loss, cold intolerance, heat intolerance, polydipsia, polyphagia, polyuria, weight gain and weight loss. Physical Exam: ED Triage Vitals Weight 01/31/24 1531 81.6 kg (180 lb) Actual or estimated 01/31/24 1531 Actual Height 01/31/24 1531 1.88 m (6' 2") BP 01/31/24 1532 (!) 143/77 Pulse 01/31/24 1532 75 Resp 01/31/24 1532 17 Temp 01/31/24 1532 36.4 ?C (97.5 ?F) Temp source 01/31/24 1532 Oral SpO2 01/31/24 1532 97 % Measured on -- Physical Exam Constitutional: General: He is not in acute distress. Appearance: Normal appearance. He is normal weight. He is not ill-appearing, toxic-appearing or diaphoretic. HENT: Head: Normocephalic and atraumatic. Right Ear: Tympanic membrane and ear canal normal. There is no impacted cerumen. Left Ear: Tympanic membrane and ear canal normal. There is no impacted cerumen. Nose: Nose normal. No congestion or rhinorrhea. Mouth/Throat: Mouth: Mucous membranes are moist. Pharynx: Oropharynx is clear. No oropharyngeal exudate or posterior oropharyngeal erythema. Eyes: General: No scleral icterus. Right eye: No discharge. Left eye: No discharge. Extraocular Movements: Extraocular movements intact. Conjunctiva/sclera: Conjunctivae normal. Pupils: Pupils are equal, round, and reactive to light. Neck: Vascular: No carotid bruit. Cardiovascular: Rate and Rhythm: Normal rate and regular rhythm. Pulses: Normal pulses. Heart sounds: Normal heart sounds. No murmur heard. No friction rub. No gallop. Pulmonary: Effort: Pulmonary effort is normal. No respiratory distress. Breath sounds: Normal breath sounds. No stridor. No wheezing, rhonchi or rales. Chest: Chest wall: No tenderness. Abdominal: General: Abdomen is flat. Bowel sounds are normal. There is no distension. Palpations: Abdomen is soft. There is no mass. Tenderness: There is no abdominal tenderness. There is no right CVA tenderness, left CVA tenderness, guarding or rebound. Hernia: No hernia is present. Musculoskeletal: General: No swelling, tenderness, deformity or signs of injury. Normal range of motion. Cervical back: Normal range of motion and neck supple. No rigidity or tenderness. Right lower leg: No edema. Left lower leg: No edema. Lymphadenopathy: Cervical: No cervical adenopathy. Skin: General: Skin is warm and dry. Capillary Refill: Capillary refill takes less than 2 seconds. Coloration: Skin is not jaundiced or pale. Findings: No bruising, erythema, lesion or rash. Neurological: General: No focal deficit present. Mental Status: He is alert and oriented to person, place, and time. Mental status is at baseline. Cranial Nerves: No cranial nerve deficit. Sensory: No sensory deficit. Motor: Weakness present. Coordination: Coordination normal. Gait: Gait normal. Deep Tendon Reflexes: Reflexes normal. Comments: + left UE and LE motor weakness. Bilateral UE and LE NV intact. Psychiatric: Mood and Affect: Mood normal. Behavior: Behavior normal. Thought Content: Thought content normal. Judgment: Judgment normal. Radiology: No orders to display Lab Results: Lab Results POCT GLUCOSE(AGE >30DAYS) - Abnormal Result Value Ref Range POCT Glu (age>30days) 161 (*) 70 - 110 mg/dL CBC WITHOUT DIFF - Abnormal WBC 4.02 (*) 4.20 - 10.70 10*3/?L RBC 3.38 (*) 4.26 - 5.52 10*6/?L HGB 9.5 (*) 12.2 - 16.4 g/dL HCT 29.2 (*) 38.4 - 49.3 % MCH 28.1 26.1 - 32.7 pg MCV 86.4 81.7 - 95.6 fL MCHC 32.5 31.2 - 35.0 g/dL PLT 106 (*) 150 - 328 10*3/?L MPV 10.2 9.8 - 13.0 fL RDW-CV 13.4 12.1 - 15.4 % RDW-SD 42.1 38.5 - 51.6 fL NRBC x10 3 <0.01 10*3/?L NRBC/100 WBC 0.0 0.0 - 10.0 /100 WBCs IPF % BASIC METABOLIC PANEL (NA, K, CL, CO2, GLUCOSE, BUN, CREATININE, CA) - Abnormal NA 136 135 - 145 mmol/L K 3.9 3.5 - 5.0 mmol/L CL 106 98 - 108 mmol/L CO2 TOTAL 26 23 - 31 mmol/L AGAP 4 2 - 16 BUN 13 7 - 23 mg/dL GLUCOSE 161 (*) 70 - 110 mg/dL CREATININE 0.91 0.60 - 1.25 mg/dL CALCIUM 8.8 8.6 - 10.6 mg/dL eGFR 95.9 mL/min/1.73m2 POCT GLUCOSE (AUTOMATED) - Abnormal POCT GLU 168 (*) 70 - 110 mg/dL PROTHROMBIN TIME / INR - Normal PROTIME PATIENT 12.1 10.1 - 12.6 Seconds INR 1.1 ACTIVATED PARTIAL THRMPLAS KIMI - Normal APTT Patient 35 26 - 36 Seconds TROPONIN I - Normal TROPONIN I 0.003 <=0.034 ng/mL URINALYSIS EKG: If EKG completed, see Procedure Note. Orders and Treatments: Orders Placed This Encounter Procedures CT ACUTE STROKE HEAD WO CONTRAST CT ACUTE STROKE ANGIOGRAM HEAD CT ACUTE STROKE ANGIOGRAM NECK MR STROKE BRAIN WO CONTRAST IR ANGIOGRAM CEREBRAL POCT Glucose (Age >30 Days) - Code Stroke Prothrombin Time / INR - Code Stroke aPTT - Code Stroke CBC without Diff - Code Stroke Troponin I - Code Stroke Basic Metabolic Panel (NA, K, CL, CO2, Glucose, BUN, Creatinine, CA) - Code Stroke Urinalysis POCT GLUCOSE (AUTOMATED) Consult Adult Physical Therapy - STROKE Patient Consult Adult Occupational Therapy - STROKE Patient Consult Speech Pathology - STROKE Patient Consult Movie Theater Usher - STROKE Patient O2 Nasal Cannula Orders Placed This Encounter Medications NaCl 0.9% (NS) injection 5 mL DISCONTD: apixaban (ELIQUIS) tablet 5 mg aspirin chewable tablet 81 mg atorvastatin (LIPITOR) tablet 40 mg nicotine (NICODERM) 14 mg/24 hr patch 1 Patch labetaloL (NORMODYNE) injection 10 mg famotidine (PEPCID AC) tablet 20 mg enoxaparin (LOVENOX) injection 40 mg First Provider Eval: ED Events Date/Time Event User Comments 01/31/24 1547 Medical Screening Begins SHAHAB ESPINOZA DO -- 01/31/24 1547 First Provider Evaluation SHAHAB ESPINOZA DO -- ED COURSE Diagnosis/Impression as of 01/31/24 1616 Cerebrovascular accident (CVA), unspecified mechanism Procedures: Procedures MDM: Medical Decision Making Patient here for left sided facial droop and left sided arm and leg weakness aroun 2 am today with slurred speech. Patient had similar symptoms a month ago and was admitted here to the Neurology service and dx with a CVA. Patient found to have a ICA vessel stenosis, but no intervention done due to rapid resolution of symptoms. Denies PEREYRA, dizziness, fevers, cough, CP, SOB, abdominal pain, vomiting, diarrhea. Amount and/or Complexity of Data Reviewed Labs: ordered. Decision-making details documented in ED Course. Details: Labs at baseline. Radiology: ordered. ECG/medicine tests: ordered and independent interpretation performed. Details: NSR 69 bpm, no acute ST-T wave changes. Discussion of management or test interpretation with external provider(s): Neurology will admit patient for further management. Risk Prescription drug management. Decision regarding hospitalization. Flowsheet Documentation: Stroke Activation - Date: 01/31/24 Stroke Activation - Time: 1535 Physician arrival at bedside - Date: 01/31/24 Physician arrival at bedside - Time: 1540 CT-Head without contrast read by Neurology: 1550 Last known well - Date: 01/31/24 Last known well - Time: 0200 LOC: 0 Alert: Keenly Responsive LOC QUESTIONS: 0 Answers Both Questions Correctly LOC COMMANDS: 0 Performs Both Tasks Correctly BEST GAZE: 0 Normal VISUAL: 0 No Visual Loss FACIAL PALSY: 2 Partial Paralysis MOTOR ARM-LEFT: 2 Some Effort Against Post MOTOR ARM-RIGHT: 0 No Drift MOTOR LEG-LEFT: 2 Some Effort Against Post MOTOR LEG-RIGHT: 0 No Drift LIMB ATAXIA: 0 Absent SENSORY: 1 Ovj-nr-Hckityyc Sensory Loss BEST LANGUAGE: 0 No Aphasia DYSARTHRIA: 0 Normal EXTINCTION AND INATTENTION (FORMERLY NEGLECT): 0 No Abnormalty STROKE SCALE TOTAL SCORE: 7 NIH STROKE SCALE LOC: 0 Alert: Keenly Responsive LOC QUESTIONS: 0 Answers Both Questions Correctly LOC COMMANDS: 0 Performs Both Tasks Correctly BEST GAZE: 0 Normal VISUAL: 0 No Visual Loss FACIAL PALSY: 2 Partial Paralysis MOTOR ARM-LEFT: 2 Some Effort Against Post MOTOR ARM-RIGHT: 0 No Drift MOTOR LEG-LEFT: 2 Some Effort Against Post MOTOR LEG-RIGHT: 0 No Drift LIMB ATAXIA: 0 Absent SENSORY: 1 [id number]-[id number] Sensory Loss BEST LANGUAGE: 0 No Aphasia DYSARTHRIA: 0 Normal EXTINCTION AND INATTENTION (FORMERLY NEGLECT): 0 No Abnormalty STROKE SCALE INTERVAL: Admission STROKE SCALE TOTAL SCORE: 7 STROKE SCALE INTERVAL: Admission STROKE SCALE TOTAL SCORE: 7 Was IV thrombolytic therapy given?: No Reason no IV thrombolytic therapy initiated: Arrival > 4.5 hours from symptom onset Did patient and/or family agree to IV Thrombolytic?: No ICH/SAH: No Was Endovascular Intervention Performed?: No Reason patient is not a candidate for endovascular intervention: Imaging: no large vessel occlusion Scoring Tools: No data recorded Dx: Left sided hemiparesis. Hx of CVA. Disposition/Condition: ED Disposition ED Disposition Admit - Inpatient Condition -- Comment -- Freddy Espinoza D.O. EM Physician RTI Billing ID #[id number] Freddy Espinoza DO 01/31/24 1616 [employer] [facility] 2023-12-23 13:54:29 2nd call no contact. Kayla Helm LVN [facility] 2023-12-22 14:26:20 TRANSITIONAL CARE MANAGEMENT ASSESSMENT 12/22/2023 Keyla Little [id number] Keyla Little is a 63 year old /White male was admitted on 12/16/[address] He was discharged on 4/7/24 with discharge disposition of HR- Routine Discharge. Admitting Physician: Josh Haines Discharge Diagnosis: Cerebrovascular accident (CVA), unspecified mechanism [I63.9] Left message to return call. No linked episodes TCM Rgh-tqcs-qf-face outreach documentation: Future Appointments: [facility] 2023-12-20 08:13:40 Problem: Discharge Planning Goal: Able to perform ADL Outcome: Adequate for discharge Problem: Discharge Planning Goal: Able to perform ADL Outcome: Adequate for discharge Goal: Knowledge of medication management Outcome: Adequate for discharge Goal: Knowledge of need for follow-up care Outcome: Adequate for discharge Goal: Knowledge of personal stroke risk factors Outcome: Adequate for discharge Goal: Knowledge of stroke warning signs Outcome: Adequate for discharge Goal: Facility placement (SNF, LTAC, LTC) appropriate for patient's abilities. Outcome: Adequate for discharge Problem: Aspiration, Risk of Goal: Absence of aspiration Outcome: Adequate for discharge Problem: Complications of thrombolytic administration (risk or actual) Goal: Absence of impaired coagulation signs and symptoms Outcome: Adequate for discharge Goal: Absence of active bleeding Outcome: Adequate for discharge Goal: Absence of angioedema signs & symptoms Outcome: Adequate for discharge Problem: Cognitive-Perceptual Pattern - Impaired Goal: Able to achieve maximum level of cognitive ability Outcome: Adequate for discharge Problem: Falls, Risk of Goal: Absence of falls Outcome: Adequate for discharge Problem: Mobility - Impaired Goal: Able to achieve maximum mobility level Outcome: Adequate for discharge Goal: Able to use ambulatory assistive device appropriately Outcome: Adequate for discharge Problem: Nutrition Deficit, Risk of Goal: Adequate nutritional intake Outcome: Adequate for discharge Problem: Pain Goal: Control of pain at or below patient's documented comfort goal Outcome: Adequate for discharge Goal: Reduction in pain sensation Outcome: Adequate for discharge Problem: Respiratory Function - Impaired Goal: Adequate oxygenation Outcome: Adequate for discharge Bandar Avina RN [facility] 2023-12-20 04:14:53 Problem: Discharge Planning Goal: Able to perform ADL Outcome: Progressing as expected Goal: Knowledge of medication management Outcome: Progressing as expected Goal: Knowledge of need for follow-up care Outcome: Progressing as expected Goal: Knowledge of personal stroke risk factors Outcome: Progressing as expected Goal: Knowledge of stroke warning signs Outcome: Progressing as expected Goal: Facility placement (SNF, LTAC, LTC) appropriate for patient's abilities. Outcome: Progressing as expected Problem: Aspiration, Risk of Goal: Absence of aspiration Outcome: Progressing as expected Problem: Complications of thrombolytic administration (risk or actual) Goal: Absence of impaired coagulation signs and symptoms Outcome: Progressing as expected Goal: Absence of active bleeding Outcome: Progressing as expected Goal: Absence of angioedema signs & symptoms Outcome: Progressing as expected Problem: Cognitive-Perceptual Pattern - Impaired Goal: Able to achieve maximum level of cognitive ability Outcome: Progressing as expected Problem: Falls, Risk of Goal: Absence of falls Outcome: Progressing as expected Problem: Mobility - Impaired Goal: Able to achieve maximum mobility level Outcome: Progressing as expected Goal: Able to use ambulatory assistive device appropriately Outcome: Progressing as expected Problem: Nutrition Deficit, Risk of Goal: Adequate nutritional intake Outcome: Progressing as expected Problem: Pain Goal: Control of pain at or below patient's documented comfort goal Outcome: Progressing as expected Goal: Reduction in pain sensation Outcome: Progressing as expected Problem: Respiratory Function - Impaired Goal: Adequate oxygenation Outcome: Progressing as expected Charlotte Queen RN [facility] 2023-12-19 09:16:09 Problem: Discharge Planning Goal: Able to perform ADL Outcome: Progressing as expected Goal: Knowledge of medication management Outcome: Progressing as expected Goal: Knowledge of need for follow-up care Outcome: Progressing as expected Goal: Knowledge of personal stroke risk factors Outcome: Progressing as expected Goal: Knowledge of stroke warning signs Outcome: Progressing as expected Goal: Facility placement (SNF, LTAC, LTC) appropriate for patient's abilities. Outcome: Progressing as expected Problem: Aspiration, Risk of Goal: Absence of aspiration Outcome: Progressing as expected Problem: Complications of thrombolytic administration (risk or actual) Goal: Absence of impaired coagulation signs and symptoms Outcome: Progressing as expected Goal: Absence of active bleeding Outcome: Progressing as expected Goal: Absence of angioedema signs & symptoms Outcome: Progressing as expected Problem: Cognitive-Perceptual Pattern - Impaired Goal: Able to achieve maximum level of cognitive ability Outcome: Progressing as expected Problem: Falls, Risk of Goal: Absence of falls Outcome: Progressing as expected Problem: Mobility - Impaired Goal: Able to achieve maximum mobility level Outcome: Progressing as expected Goal: Able to use ambulatory assistive device appropriately Outcome: Progressing as expected Problem: Nutrition Deficit, Risk of Goal: Adequate nutritional intake Outcome: Progressing as expected Problem: Pain Goal: Control of pain at or below patient's documented comfort goal Outcome: Progressing as expected Goal: Reduction in pain sensation Outcome: Progressing as expected Problem: Respiratory Function - Impaired Goal: Adequate oxygenation Outcome: Progressing as expected Usman Jordan RN [facility] 2023-12-19 03:42:07 Problem: Discharge Planning Goal: Able to perform ADL Outcome: Progressing as expected Goal: Knowledge of medication management Outcome: Progressing as expected Goal: Knowledge of need for follow-up care Outcome: Progressing as expected Goal: Knowledge of personal stroke risk factors Outcome: Progressing as expected Goal: Knowledge of stroke warning signs Outcome: Progressing as expected Goal: Facility placement (SNF, LTAC, LTC) appropriate for patient's abilities. Outcome: Progressing as expected Problem: Aspiration, Risk of Goal: Absence of aspiration Outcome: Progressing as expected Problem: Complications of thrombolytic administration (risk or actual) Goal: Absence of impaired coagulation signs and symptoms Outcome: Progressing as expected Goal: Absence of active bleeding Outcome: Progressing as expected Goal: Absence of angioedema signs & symptoms Outcome: Progressing as expected Problem: Cognitive-Perceptual Pattern - Impaired Goal: Able to achieve maximum level of cognitive ability Outcome: Progressing as expected Problem: Falls, Risk of Goal: Absence of falls Outcome: Progressing as expected Problem: Mobility - Impaired Goal: Able to achieve maximum mobility level Outcome: Progressing as expected Goal: Able to use ambulatory assistive device appropriately Outcome: Progressing as expected Problem: Nutrition Deficit, Risk of Goal: Adequate nutritional intake Outcome: Progressing as expected Problem: Pain Goal: Control of pain at or below patient's documented comfort goal Outcome: Progressing as expected Goal: Reduction in pain sensation Outcome: Progressing as expected Problem: Respiratory Function - Impaired Goal: Adequate oxygenation Outcome: Progressing as expected Cindy Gonzalez RN [facility] 2023-12-18 10:58:26 Problem: Discharge Planning Goal: Able to perform ADL Outcome: Progressing as expected Goal: Knowledge of medication management Outcome: Progressing as expected Goal: Knowledge of need for follow-up care Outcome: Progressing as expected Goal: Knowledge of personal stroke risk factors Outcome: Progressing as expected Goal: Knowledge of stroke warning signs Outcome: Progressing as expected Goal: Facility placement (SNF, LTAC, LTC) appropriate for patient's abilities. Outcome: Progressing as expected Problem: Aspiration, Risk of Goal: Absence of aspiration Outcome: Progressing as expected Problem: Complications of thrombolytic administration (risk or actual) Goal: Absence of impaired coagulation signs and symptoms Outcome: Progressing as expected Goal: Absence of active bleeding Outcome: Progressing as expected Goal: Absence of angioedema signs & symptoms Outcome: Progressing as expected Problem: Cognitive-Perceptual Pattern - Impaired Goal: Able to achieve maximum level of cognitive ability Outcome: Progressing as expected Problem: Falls, Risk of Goal: Absence of falls Outcome: Progressing as expected Problem: Mobility - Impaired Goal: Able to achieve maximum mobility level Outcome: Progressing as expected Goal: Able to use ambulatory assistive device appropriately Outcome: Progressing as expected Problem: Nutrition Deficit, Risk of Goal: Adequate nutritional intake Outcome: Progressing as expected Problem: Pain Goal: Control of pain at or below patient's documented comfort goal Outcome: Progressing as expected Goal: Reduction in pain sensation Outcome: Progressing as expected Problem: Respiratory Function - Impaired Goal: Adequate oxygenation Outcome: Progressing as expected Mariana Vázquez RN [facility] 2023-12-18 07:17:19 Problem: Discharge Planning Goal: Able to perform ADL Outcome: Progressing as expected Goal: Knowledge of medication management Outcome: Progressing as expected Goal: Knowledge of need for follow-up care Outcome: Progressing as expected Goal: Knowledge of personal stroke risk factors Outcome: Progressing as expected Goal: Knowledge of stroke warning signs Outcome: Progressing as expected Goal: Facility placement (SNF, LTAC, LTC) appropriate for patient's abilities. Outcome: Progressing as expected Problem: Aspiration, Risk of Goal: Absence of aspiration Outcome: Progressing as expected Problem: Complications of thrombolytic administration (risk or actual) Goal: Absence of impaired coagulation signs and symptoms Outcome: Progressing as expected Goal: Absence of active bleeding Outcome: Progressing as expected Goal: Absence of angioedema signs & symptoms Outcome: Progressing as expected Problem: Cognitive-Perceptual Pattern - Impaired Goal: Able to achieve maximum level of cognitive ability Outcome: Progressing as expected Problem: Falls, Risk of Goal: Absence of falls Outcome: Progressing as expected Problem: Mobility - Impaired Goal: Able to achieve maximum mobility level Outcome: Progressing as expected Goal: Able to use ambulatory assistive device appropriately Outcome: Progressing as expected Problem: Nutrition Deficit, Risk of Goal: Adequate nutritional intake Outcome: Progressing as expected Problem: Pain Goal: Control of pain at or below patient's documented comfort goal Outcome: Progressing as expected Goal: Reduction in pain sensation Outcome: Progressing as expected Problem: Respiratory Function - Impaired Goal: Adequate oxygenation Outcome: Progressing as expected Corin Kerr RN [facility] 2023-12-17 06:52:20 Keyla Little is a 63 year old man with PMHX of HTN, HLD, DM-II, who was brought by EMS on 12/16/23 as stroke activation for acute dense left face/arm/leg weakness (LSN 11 AM 12/16/23). He initially had severe left face and arm > leg weakness and sensory loss and left harjinder-neglect with NIHSS of 9. This improved rapidly to NIHSS of [address] scans were obtained and NIHSS of 0 when brought to the room. CT head already showed right parietal hypodensity, CTA head and neck showed right ICA near occlusion with soft plaque and right inferior M2 occlusion. CTP showed right parietal penumbra and core. He likely had a [id number] embolic stroke to right M2 that was resolved. He was loaded with aspirin 325, plavix 300, and started on lipitor 40. Admitted for stroke workup. MR brain showed acute/subacute infarct in right MCA territory. LORE showed possible small PFO but negative for thrombus. Rajiv Johnson [facility] 2023-12-16 20:26:11 Problem: Discharge Planning Goal: Able to perform ADL Outcome: Progressing as expected Goal: Knowledge of medication management Outcome: Progressing as expected Goal: Knowledge of need for follow-up care Outcome: Progressing as expected Goal: Knowledge of personal stroke risk factors Outcome: Progressing as expected Goal: Knowledge of stroke warning signs Outcome: Progressing as expected Goal: Facility placement (SNF, LTAC, LTC) appropriate for patient's abilities. Outcome: Progressing as expected Problem: Aspiration, Risk of Goal: Absence of aspiration Outcome: Progressing as expected Problem: Complications of thrombolytic administration (risk or actual) Goal: Absence of impaired coagulation signs and symptoms Outcome: Progressing as expected Goal: Absence of active bleeding Outcome: Progressing as expected Goal: Absence of angioedema signs & symptoms Outcome: Progressing as expected Problem: Cognitive-Perceptual Pattern - Impaired Goal: Able to achieve maximum level of cognitive ability Outcome: Progressing as expected Problem: Falls, Risk of Goal: Absence of falls Outcome: Progressing as expected Problem: Mobility - Impaired Goal: Able to achieve maximum mobility level Outcome: Progressing as expected Goal: Able to use ambulatory assistive device appropriately Outcome: Progressing as expected Problem: Nutrition Deficit, Risk of Goal: Adequate nutritional intake Outcome: Progressing as expected Problem: Pain Goal: Control of pain at or below patient's documented comfort goal Outcome: Progressing as expected Goal: Reduction in pain sensation Outcome: Progressing as expected Connor Jackson RN [facility] 2023-12-16 15:39:44 Echo bedside with patient. Sade Wilburn RN [facility] 2023-12-16 15:36:50 Report called and given to RN-POC discussed no other questions, transportation put in. [facility] 2023-12-16 15:03:54 Pt resting comfortably in stretcher. Ambulate to restroom with steady gait. 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 No further needs at this time. Ronda Wilde RN [facility] 2023-12-16 13:47:10 Per neuro, no TNK, pt symptoms improved back to baseline. Belkis Lemons RN [facility] 2023-12-16 13:40:50 TNK mixed at this time, pending orders. 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 [facility] 2023-12-16 13:13:58 Keyla Little is a 63 year old male presents to ED via EMS as code stroke activation. Per EMS family reports at 1200 pt began having left side facial droop, weakness and slurred speech. Reports 2 previous strokes in the last 2 months. Pt aox4 with gcs 14 skin warm and dry resp even and unlabored. Neuro at bedside. Pt to CT scan [facility] 2023-12-16 13:12:00 [facility] Emergency Department Note Patient Name: Keyla Little Date of : 1960 63 year old male Treatment Room: [address] [place] [address] Primary Care Physician: Arielle Benitez Patient Escorted by: Self [9] Mode of Arrival: EMS - [facility] [30] EMS Treatment Prior to ED Arrival: Travel and Exposure Screening: Symptoms Does patient have any of these symptoms?: (not recorded) Exposure Screening Has patient had contact with someone with a communicable disease in the last month?: (not recorded) Diseases exposed to:: (not recorded) Is Patient ?: (not recorded) Exposure Date: (not recorded) Chief Complaint: Chief Complaint Patient presents with STROKE History of Present Illness: Keyla Little is a 63 yom with no known pmh here for a stroke. Just 1 hour prior to arrival, family noticed some left facial droop and left-sided weakness. In EMS he was completely slumped over, and upon initial evaluation, he had total hemineglect of his left side. He denies any intracranial mass or lesions, he denies taking blood thinners, he denies any recent surgery, and he has never had a brain bleed or GI bleed. He has no medical history and takes no medications. Past Medical History/Immunizations: No past medical history on file. Allergies: No Known Allergies Past Social History: Tobacco Use Former Smokeless Tobacco: Never used smokeless tobacco. Alcohol Use Yes. Past Surgical History: Past Surgical History: Procedure Laterality Date RADIUS AND ULNA ORIF Right 02/25/2016 Surgeon: Ericka Bergman; Location: [facility] SPLINT APPLICATION Right 02/25/2016 Surgeon: Ericak Bergman; Location: [facility] ULNA ORIF Right 10/10/2016 Surgeon: Cuba Salgado MD; Location: [facility] ULNAR NON-UNION TAKEDOWN Right 10/10/2016 Surgeon: Cuba Salgado MD; Location: [facility] Review of Systems: Review of Systems Constitutional: Negative for activity change, appetite change, chills and fever. HENT: Negative for rhinorrhea and sore throat. Eyes: Negative for visual disturbance. Respiratory: Negative for cough and shortness of breath. Cardiovascular: Negative for chest pain, palpitations and leg swelling. Gastrointestinal: Negative for constipation, diarrhea, nausea and vomiting. Genitourinary: Negative. Musculoskeletal: Negative. Skin: Negative. Neurological: Negative. Negative for weakness, light-headedness and headaches. Psychiatric/Behavioral: Negative. All other systems reviewed and are negative. Endocrine: Endocrine negative Physical Exam: ED Triage Vitals [12/16/23 1314] Weight 86.2 kg (190 lb) Actual or estimated Height BP 126/84 Pulse 74 Resp 16 Temp 37 ?C (98.6 ?F) Temp source Oral SpO2 97 % Measured on Room air Physical Exam Vitals and nursing note reviewed. Constitutional: General: He is not in acute distress. Appearance: Normal appearance. He is not ill-appearing. HENT: Right Ear: External ear normal. Left Ear: External ear normal. Nose: Nose normal. Mouth/Throat: Mouth: Mucous membranes are moist. Eyes: Extraocular Movements: Extraocular movements intact. Cardiovascular: Rate and Rhythm: Normal rate. Pulses: Normal pulses. Pulmonary: Effort: Pulmonary effort is normal. No respiratory distress. Breath sounds: Normal breath sounds. Abdominal: General: Abdomen is flat. Palpations: Abdomen is soft. Musculoskeletal: General: No swelling. Normal range of motion. Skin: General: Skin is warm and dry. Capillary Refill: Capillary refill takes less than 2 seconds. Neurological: Mental Status: He is alert and oriented to person, place, and time. Cranial Nerves: Cranial nerve deficit and facial asymmetry (LT sided droop) present. Sensory: Sensory deficit present. Motor: Weakness (LT sided weakness) present. Comments: Left-sided hemineglect Psychiatric: Mood and Affect: Mood normal. Radiology: CT STROKE PERFUSION W CONTRAST Final Result EXAM: CT STROKE PERFUSION W CONTRAST HISTORY: 63 years-old Male; Provided Indication: Neuro deficit, acute, stroke suspected . COMPARISON: Same day CT Head and CT Angiogram Head. TECHNIQUE: Whole brain CT perfusion was performed after administration of IV contrast. Post processing was performed utilizing RAPID software. Dose lowering technique(s) such as automated exposure control, iterative reconstruction, and mA and/or KV adjustment for patient size was utilized for this examination. FINDINGS: No ischemic penumbra, core volume, territory at risk, or mismatch volume is present. Ischemic penumbra involving the frontal and parietal lobes. Core volume (CBF < 30%) 8 mL, territory at risk (Transit time > 6.0 s) 58 mL, with mismatch volume 50 mL, and a mismatch ratio of 7.2. IMPRESSION Right MCA territory acute/subacute stroke with a core infarct of 8 ml and an ischemic penumbra of 50 ml. Preliminary Report Dictated by Resident: Chantale Knapp MD., have reviewed this study and agree with the above report. CT ACUTE STROKE ANGIOGRAM HEAD Final Result CT STROKE ANGIOGRAM NECK, CT STROKE ANGIOGRAM HEAD HISTORY: 63 years old Male with Neuro deficit, acute, stroke suspected Rad: please obtain POCT creatinine prior to CTA head/neck TECHNIQUE: CTA of the head and neck with coronal, sagittal reformats, and MIPS reconstruction was performed. COMPARISON: CT head from the same date and 12/04/2021. FINDINGS: CTA HEAD: The PICA origin is visualized bilaterally. The basilar artery is normal in caliber. The superior cerebellar arteries are unremarkable. The posterior cerebral arteries are unremarkable. Bilateral posterior commuting arteries are visualized. Calcified and noncalcified atherosclerotic plaques are present in the bilateral carotid siphons result in moderate stenosis of right supraclinoid ICA. The intracranial internal carotid arteries are otherwise patent. Filling defect is noted at the proximal inferior division of M2 MCA with distal reconstitution. The anterior cerebral arteries and left middle cerebral artery are unremarkable. An anterior communicating artery is visualized. Dural venous sinuses are patent. CTA NECK: Standard 3 vessel aortic arch. The ostia of the great neck vessels are free of significant stenosis. The innominate and subclavian arteries are patent with normal course. Filling defect likely thrombus at the right proximal internal carotid artery results in near complete occlusion. The internal carotid artery distal to the thrombus is patent but small in caliber. Calcified and noncalcified plaques of the left ICA mild approximately 30% stenosis. The vertebral arteries originate normally from the subclavian arteries and are patent along their course. Cervical soft tissues: An incidental 8 mm hypoattenuating nodule in the left thyroid lobe is noted. Lung apices: Unremarkable. Cervical spine: No acute bony abnormality. IMPRESSION 1. 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 Opacification of the cavernous carotid artery distal to the thrombus but remains a small in caliber. 2. Filling defect likely thrombus at the proximal inferior division of right M2 MCA with distal reconstitution. 3. Moderate stenosis of right supraclinoid internal carotid artery. Finding #1 was communicated to and acknowledged by Dr. Milan Krishna, via phone call at 2:04 PM on 12/16/2023. Finding #2 was communicated to and acknowledged by Dr. Milan Krishna, via phone call at 2:39 PM on 12/16/2023. Preliminary Report Dictated by Resident: Mauricio Rojas I, Renzo Aquino MD., have reviewed this study and agree with the above report. CT ACUTE STROKE ANGIOGRAM NECK Final Result CT STROKE ANGIOGRAM NECK, CT STROKE ANGIOGRAM HEAD HISTORY: 63 years old Male with Neuro deficit, acute, stroke suspected Rad: please obtain POCT creatinine prior to CTA head/neck TECHNIQUE: CTA of the head and neck with coronal, sagittal reformats, and MIPS reconstruction was performed. COMPARISON: CT head from the same date and 12/04/2021. FINDINGS: CTA HEAD: The PICA origin is visualized bilaterally. The basilar artery is normal in caliber. The superior cerebellar arteries are unremarkable. The posterior cerebral arteries are unremarkable. Bilateral posterior commuting arteries are visualized. Calcified and noncalcified atherosclerotic plaques are present in the bilateral carotid siphons result in moderate stenosis of right supraclinoid ICA. The intracranial internal carotid arteries are otherwise patent. Filling defect is noted at the proximal inferior division of M2 MCA with distal reconstitution. The anterior cerebral arteries and left middle cerebral artery are unremarkable. An anterior communicating artery is visualized. Dural venous sinuses are patent. CTA NECK: Standard 3 vessel aortic arch. The ostia of the great neck vessels are free of significant stenosis. The innominate and subclavian arteries are patent with normal course. Filling defect likely thrombus at the right proximal internal carotid artery results in near complete occlusion. The internal carotid artery distal to the thrombus is patent but small in caliber. Calcified and noncalcified plaques of the left ICA mild approximately 30% stenosis. The vertebral arteries originate normally from the subclavian arteries and are patent along their course. Cervical soft tissues: An incidental 8 mm hypoattenuating nodule in the left thyroid lobe is noted. Lung apices: Unremarkable. Cervical spine: No acute bony abnormality. IMPRESSION 1. 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 Opacification of the cavernous carotid artery distal to the thrombus but remains a small in caliber. 2. Filling defect likely thrombus at the proximal inferior division of right M2 MCA with distal reconstitution. 3. Moderate stenosis of right supraclinoid internal carotid artery. Finding #1 was communicated to and acknowledged by Dr. Milan Krishna, via phone call at 2:04 PM on 12/16/2023. Finding #2 was communicated to and acknowledged by Dr. Milan Krishna, via phone call at 2:39 PM on 12/16/2023. Preliminary Report Dictated by Resident: Mauricio Rojas I, Renzo Aquino MD., have reviewed this study and agree with the above report. CT ACUTE STROKE HEAD WO CONTRAST Final Result EXAM: CT STROKE HEAD WO CONTRAST HISTORY: Neuro deficit, acute, stroke suspected . TECHNIQUE: Axial CT of the head was performed and reconstructed at 5 mm intervals. Coronal and sagittal reformatted images were generated. COMPARISON: None FINDINGS: There is a subtle medium-size age indeterminant right ernandez radiata/centrum semiovale hypodensity extending into the right insular cortex, concerning for an acute/subacute infarction (new from prior scan). The ventricles and cerebral sulci are normal in caliber and configuration. No midline shift or pathological extra-axial fluid collection is present. The basal cisterns are unremarkable. No acute intracranial hemorrhage or significant mass effect is visualized. The kaiser-white matter differentiation is preserved. The mastoid air cells and paranasal air sinuses are clear. The calvarium and central skull base are unremarkable. IMPRESSION 1. Subtle medium-size age-indeterminant hypodensity seen at the right insular cortex/ernandez radiata/centrum semiovale, concerning for an acute/subacute infarction. No acute hemorrhage seen. No significant mass effect seen. The primary team was reported of the critical findings at the time of report dictation. Preliminary Report Dictated by Resident: Mauricio Rojas I, Chantale Machuca MD., have reviewed this study and agree with the above report. Lab Results: Lab Results POCT GLUCOSE (AUTOMATED) - Abnormal Result Value Ref Range POCT GLU 126 (*) 70 - 110 mg/dL POCT GLUCOSE(AGE >30DAYS) - Abnormal POCT Glu (age>30days) 126 (*) 70 - 110 mg/dL CBC WITHOUT DIFF - Abnormal WBC 5.98 4.20 - 10.70 10*3/?L RBC 4.03 (*) 4.26 - 5.52 10*6/?L HGB 12.1 (*) 12.2 - 16.4 g/dL HCT 36.0 (*) 38.4 - 49.3 % MCH 30.0 26.1 - 32.7 pg MCV 89.3 81.7 - 95.6 fL MCHC 33.6 31.2 - 35.0 g/dL PLT 114 (*) 150 - 328 10*3/?L MPV 10.6 9.8 - 13.0 fL RDW-CV 13.8 12.1 - 15.4 % RDW-SD 45.6 38.5 - 51.6 fL NRBC x10 3 <0.01 10*3/?L NRBC/100 WBC 0.0 0.0 - 10.0 /100 WBCs IPF % BASIC METABOLIC PANEL (NA, K, CL, CO2, GLUCOSE, BUN, CREATININE, CA) - Abnormal NA 137 135 - 145 mmol/L K 4.1 3.5 - 5.0 mmol/L CL 105 98 - 108 mmol/L CO2 TOTAL 27 23 - 31 mmol/L AGAP 5 2 - 16 BUN 14 7 - 23 mg/dL GLUCOSE 112 (*) 70 - 110 mg/dL CREATININE 0.95 0.60 - 1.25 mg/dL CALCIUM 9.2 8.6 - 10.6 mg/dL eGFR 91.1 mL/min/1.73m2 PROTHROMBIN TIME / INR - Normal PROTIME PATIENT 12.3 10.1 - 12.6 Seconds INR 1.1 ACTIVATED PARTIAL THRMPLAS KIMI - Normal APTT Patient 35 26 - 36 Seconds TROPONIN I - Normal TROPONIN I 0.004 <=0.034 ng/mL URINALYSIS EKG: If EKG completed, see Procedure Note. Orders and Treatments: Orders Placed This Encounter Procedures CT ACUTE STROKE HEAD WO CONTRAST CT ACUTE STROKE ANGIOGRAM HEAD CT ACUTE STROKE ANGIOGRAM NECK CT STROKE PERFUSION W CONTRAST MR STROKE BRAIN WO CONTRAST POCT Glucose (Age >30 Days) - Code Stroke Prothrombin Time / INR - Code Stroke aPTT - Code Stroke CBC without Diff - Code Stroke Troponin I - Code Stroke Basic Metabolic Panel (NA, K, CL, CO2, Glucose, BUN, Creatinine, CA) - Code Stroke Urinalysis POCT GLUCOSE (AUTOMATED) Fasting Lipd Panel (66087)(TOTAL CHOLESTEROL, TRIGLYCERIDES, HDL) Glycosyated Hemoglobin (A1C) MRSA / MSSA Screen by PCR, Nares Consult Adult Physical Therapy - STROKE Patient Consult Adult Occupational Therapy - STROKE Patient Consult Speech Pathology - STROKE Patient Consult Movie Theater Usher - STROKE Patient O2 Nasal Cannula Orders Placed This Encounter Medications NaCl 0.9% (NS) injection 5 mL iopamidol (ISOVUE 370-500 mL) injection 120 mL aspirin tablet 325 mg clopidogreL (PLAVIX) 75 mg tablet 75 mg aspirin chewable tablet 81 mg clopidogreL (PLAVIX) 300 mg tablet 300 mg atorvastatin (LIPITOR) tablet 80 mg DISCONTD: NaCl 0.9% (NS) IV infusion 1,000 mL DISCONTD: NaCl 0.9% (NS) IV infusion 1,000 mL metFORMIN 500 mg/5 mL SSRR atorvastatin (LIPITOR) 40 mg tablet lisinopriL 10 mg tablet atorvastatin (LIPITOR) tablet 40 mg DISCONTD: labetaloL (NORMODYNE) injection 10 mg DISCONTD: enoxaparin (LOVENOX) injection 40 mg famotidine (PEPCID AC) tablet 20 mg perflutren protein-A microsphr (OPTISON) injection 3 mL NaCl 0.9% (NS) IV infusion 1,000 mL NaCl 0.9% (NS) 1000 mL + KCL 20 mEq labetaloL (NORMODYNE) injection 10 mg enoxaparin (LOVENOX) injection 40 mg dextrose 50 % in water (D50W) injection 25 mL glucagon (GLUCAGEN DIAGNOSTIC KIT) injection 1 mg Sliding Scale Insulin - Lispro (HumaLOG) First Provider Eval: ED Events Date/Time Event User Comments 12/16/23 1313 Medical Screening Begins KEN TENA -- 12/16/23 1313 First Provider Evaluation KEN TENA -- ED COURSE ED Course as of 12/16/231849Dec 16, 2023 1444 Updated neurology on near complete ICA occlusion. No change in the plan. [MT] 1403 Perfusion scan showed right-sided infarct. His NIH is now 1 per neurology. He will not be receiving TNK. Neurology will admit. [MT] ED Course User Index [MT] Milan Krishna DO Diagnosis/Impression as of 12/16/231849 Cerebrovascular accident (CVA), unspecified mechanism Acute right arterial ischemic stroke, middle cerebral artery (MCA) Occlusion of right internal carotid artery Procedures: Procedures MDM: Medical Decision Making Given the patient's history and physical exam, the differential diagnosis includes but is not limited to: TIA/CVA, SAH, complex migraine, Juan Jose's Paralysis, Bae's Palsy, hypoglycemia, mass lesion, metabolic abnormality, and electrolyte abnormality. Keyla Little is a 63 yom with no known pmh here for a stroke. Just 1 hour prior to arrival, family noticed some left facial droop and left-sided weakness. In EMS he was completely slumped over, and upon initial evaluation, he had total hemineglect of his left side. He denies any intracranial mass or lesions, he denies taking blood thinners, he denies any recent surgery, and he has never had a brain bleed or GI bleed. He has no medical history and takes no medications. He was evaluated by neurology in the ED physician in triage and taken to the CT scanner within 5 minutes of arrival. He did have a small core infarct on the CT perfusion with a large penumbra, but symptoms resolved and NIH came down to 0 within 1 hour. Dispo: Admit to neurology for MRI Problems Addressed: Acute right arterial ischemic stroke, middle cerebral artery (MCA): acute illness or injury Cerebrovascular accident (CVA), unspecified mechanism: acute illness or injury Occlusion of right internal carotid artery: acute illness or injury Amount and/or Complexity of Data Reviewed Labs: ordered. Radiology: ordered. Risk Prescription drug management. Decision regarding hospitalization. Flowsheet Documentation: Stroke Activation - Date: 12/16/23 Stroke Activation - Time: 1303 Physician arrival at bedside - Date: 12/16/23 Physician arrival at bedside - Time: 1306 CT-Head without contrast read by Neurology: 1315 Last known well - Date: 12/16/23 Last known well - Time: 1100 LOC: 0 Alert: Keenly Responsive LOC QUESTIONS: 0 Answers Both Questions Correctly LOC COMMANDS: 0 Performs Both Tasks Correctly BEST GAZE: 0 Normal VISUAL: 0 No Visual Loss FACIAL PALSY: 0 Normal MOTOR ARM-LEFT: 0 No Drift MOTOR ARM-RIGHT: 0 No Drift MOTOR LEG-LEFT: 0 No Drift MOTOR LEG-RIGHT: 0 No Drift LIMB ATAXIA: 0 Absent SENSORY: 0 Normal BEST LANGUAGE: 0 No Aphasia DYSARTHRIA: 0 Normal EXTINCTION AND INATTENTION (FORMERLY NEGLECT): 0 No Abnormalty STROKE SCALE TOTAL SCORE: 0 NIH STROKE SCALE LOC: 0 Alert: Keenly Responsive LOC QUESTIONS: 0 Answers Both Questions Correctly LOC COMMANDS: 0 Performs Both Tasks Correctly BEST GAZE: 0 Normal VISUAL: 0 No Visual Loss FACIAL PALSY: 0 Normal MOTOR ARM-LEFT: 0 No Drift MOTOR ARM-RIGHT: 0 No Drift MOTOR LEG-LEFT: 0 No Drift MOTOR LEG-RIGHT: 0 No Drift LIMB ATAXIA: 0 Absent SENSORY: 0 Normal BEST LANGUAGE: 0 No Aphasia DYSARTHRIA: 0 Normal EXTINCTION AND INATTENTION (FORMERLY NEGLECT): 0 No Abnormalty STROKE SCALE INTERVAL: Admission STROKE SCALE TOTAL SCORE: 0 STROKE SCALE INTERVAL: Admission STROKE SCALE TOTAL SCORE: 0 Was IV thrombolytic therapy given?: No Reason no IV thrombolytic therapy initiated: NIH equals 0 Did patient and/or family agree to IV Thrombolytic?: (symptoms resolved within 1 hour) ICH/SAH: No Was Endovascular Intervention Performed?: No Reason patient is not a candidate for endovascular intervention: NIH less than or equal to 6 Scoring Tools: No data recorded Disposition/Condition: ED Disposition ED Disposition Admit - Inpatient Condition -- Comment -- Discharge Medications: Current Discharge Medication List STOP taking these medications atorvastatin (LIPITOR) 40 mg tablet Comments: Reason for Stopping: lisinopriL 10 mg tablet Comments: Reason for Stopping: metFORMIN 500 mg/5 mL SSRR Comments: Reason for Stopping: Follow-up: Electronically signed by: Ken Tena MD 12/16/23 3408 Addendum: Teaching attestation: I personally examined and participated in decision-making for this patient with the resident. I agree with the above note, assessment, and plan. Seen evaluated as a stroke activation upon arrival with physical exam as above. Promptly taken to the CT scanner. He had clinical improvement starting with EMS. CT scans showed right M2 occlusion and internal carotid occlusion on the right. Neurology deemed him not a TNK candidate as his symptoms are resolving. Soon after getting the CT scan reads, he had complete resolution of his symptoms and was able to walk around the emergency department on his own without difficulty. Neurology will admit for further workup and evaluation and will not go for thrombectomy at this time either. He is comfortable and agreeable plan. Milan Krishna DO 12/16/23 5826 [facility]
[2024-06-12] MEDS ORDERED: NA CHLORIDE 0.9% 1,000 ML ONE (22:10)
[2024-06-12 22:50] LABS: Absolute Lymphocytes (CBC) 1.3 K/uL (0.7-4.9); Absolute Monocytes 0.8 K/uL (0.1-1.3); Absolute Neutrophil 3.9 K/uL (1.8-8.0); Basophils % 0.8 % (0-1.3); Eosinophils % 0.8 % (0-4.4); Hematocrit 30.5 % (39.6-49.0); Hemoglobin 10.2 g/dL (13.6-17.9); Lymphocytes % 20.8 % (15.3-44.8); MCHC 33.5 g/dL (32.0-36.0); MCV 83.5 fL (80-100); MPV 8.3 fL (7.6-11.3); Monocytes % 12.9 % (3.3-12.3); Neutrophils % 64.7 % (41.7-73.7); PT Prothrombin Time 13.1 SECONDS (9.4-12.5); Platelets 157 thou/uL (152-406); Protime INR 1.18; RBC Red Blood Cell Count 3.66 M/uL (4.33-5.43); Red Cell Distribution Width 19.3 % (12.1-15.2)
[2024-06-12 23:33] LABS: Specific Gravity 1.028 (1.005-1.030); Sqamous Epithelial None Seen /HPF (None Seen); Urine Bacteria None Seen /HPF (<20); Urine Bilirubin NEGATIVE (Negative); Urine Blood 2+ (Negative); Urine Clarity Extremely Turbid (Clear); Urine Color Light-Yellow (Yellow); Urine Culture Reflex Order NOT NEEDED; Urine Glucose 4+ (Over) (Negative); Urine Ketones NEGATIVE (Negative); Urine Micro Reflex YN NO BILL MICROSCOPIC; Urine Nitrite NEGATIVE (Negative); Urine Protein NEGATIVE (Negative); Urine RBC 21-50 /HPF (None Seen); Urine Urobilinogen 1+ (Normal); Urine WBC None Seen /HPF (<5); Urine pH 7.5 (5.0-7.0)
[2024-06-13 00:13] LABS: Albumin 2.2 g/dL (3.4-5.0); Albumin/Globulin Ratio 0.4 (1.1-1.8); Anion Gap 8.1 mEq/L (5.0-15.0); Bilirubin Direct 0.2 mg/dL (0-0.2); Bilirubin Indirect, Calculated 0.4 mg/dL (0.2-0.8); Bilirubin Total 0.6 mg/dL (0.2-1.0); Magnesium 2.4 mg/dL (1.6-2.4); Potassium 4.1 mEq/L (3.5-5.1); Protein, Total 7.2 g/dL (6.4-8.2); Troponin High Sensitivity 5.5 pg/mL (<58.9)
--- NOTE | 2024-06-13 00:51 | RAD REPORT ---
CLINICAL HISTORY: AMS. COMPARISON: None. TECHNIQUE: CT HEAD WITHOUT IV CONTRAST on 06/12/2024 10:06 PM CDT This exam was performed according to our departmental dose-optimization program, which includes autom ated exposure control, adjustment of the mA and/or kV according to patient size and/or use of iterative reconstruction technique. FINDINGS: There is no acute hemorrhage, mass effect or midline shift. There is a small area of posterior right frontal encephalomalacia. There is no hydrocephalus. There is no significant volume loss for age. The calvarium is intact. Orbits and globes are unremarkable. The paranasal sinuses are clear. Mastoid air cells are clear. IMPRESSION: No acute intracranial findings. Electronically signed by: Jerrod Hull MD 06/12/2024 11:58 PM CDT RP Due to temporary technical issues with the [employer] reporting system, reports are being roger d by the in-house radiologist without review as a courtesy to ensure prompt reporting the interpreting radiologist is fully responsible for the content of the report. Transcribed Date/Time: 06/13/2024 12:51 AM
[2024-06-13] MEDS ORDERED: LACTULOSE 20 GM/30 ML UCUP ONE (01:17)
--- NOTE | 2024-06-13 01:34 | EDPHYS ---
Physician Documentation [facility] Name: Chalo Little Age: 63 yrs Sex: Male : 1960 Arrival Date: 06/12/2024 Time: 21:45 Bed 15 Private MD: ED Physician Shreyas Cummings HPI: 06/12 23:08 This 63 yrs old Male presents to ER via Wheelchair with complaints of High Blood Sugar rt - ALTERED. 23:08 Patient with history of cirrhosis presents to the ED with altered mental status rt starting today. Unclear if the patient has been taking his lactulose or not. History obtained mostly per patient's family due to altered mental status. Denies other acute complaints at this time, symptoms are moderate in severity, no other aggravating or alleviating factors. Historical: - Allergies: 22:10 No Known Allergies; vc1 - Home Meds: 22:10 metformin 500 mg oral tablet with evening meal [Active]; aspirin 81 mg Oral capsule vc1 daily [Active]; lisinopril 10 mg Oral tablet daily [Active]; melatonin + Calming Botanicals 2 gummies nightly [Active]; Xifaxan 550 mg oral tablet 2 times per day [Active]; multivitamin oral tablet 1 tab daily [Active]; atorvastatin 20 mg oral tablet every day at bedtime [Active]; pantoprazole 40 mg oral tablet, delayed release (enteric coated) 2 times per day [Active]; lactulose 10 gram/15 mL (15 mL) Oral solution 45 mL 3 times per day [Active]; - PMHx: 22:10 cirrhosis of liver; CVA; diabetes mellitus; Hypertensive disorder; vc1 - PSHx: 22:10 right carotid blockage sx; TIPS; vc1 - Immunization history:: Adult Immunizations up to date. - Infectious Disease History:: Denies. - Social history:: Smoking status: Patient denies any tobacco usage or history of. - Family history:: not pertinent. ROS: 23:08 Unable to obtain ROS due to altered mental status, rt Exam: 23:08 Head/Face: Normocephalic, atraumatic. Chest/axilla: Normal chest wall appearance and rt motion. Nontender with no deformity. No lesions are appreciated. Cardiovascular: Regular rate and rhythm with a normal S1 and S2. No gallops, murmurs, or rubs. Normal PMI, no JVD. No pulse deficits. Respiratory: Lungs have equal breath sounds bilaterally, clear to auscultation and percussion. No rales, rhonchi or wheezes noted. No increased work of breathing, no retractions or nasal flaring. Abdomen/GI: Soft, non-tender, with normal bowel sounds. No distension or tympany. No guarding or rebound. No evidence of tenderness throughout. Skin: Warm, dry with normal turgor. Normal color with no rashes, no lesions, and no evidence of cellulitis. MS/ Extremity: Pulses equal, no cyanosis. Neurovascular intact. Full, normal range of motion. 23:08 Neuro: Paucity of speech, no eggs cranial nerve deficits, moves all 4 extremities equally, asterixis noted, 23:58 ECG was reviewed by the Attending Physician. rt Vital Signs: 22:00 BP 148 / 64; Pulse 83; Resp 16; Pulse Ox 99% on R/A; al5 22:06 BP 165 / 72; Pulse 84; Resp 16; Temp 97.9; Pulse Ox 97% ; Weight 83.01 kg (M); vc1 06/13 00:30 BP 149 / 70; Pulse 77; Resp 15; Pulse Ox 98% on R/A; al5 01:00 BP 146 / 73; Pulse 77; Resp 14; Pulse Ox 99% on R/A; al5 MDM: 06/12 21:53 Patient medically screened. rt 06/13 03:11 Differential diagnosis: Metabolic encephalopathy, intracranial hemorrhage, electrolyte rt disturbance. Data reviewed: vital signs, nurses notes, lab test result(s), EKG, radiologic studies. Consideration of Admission/Observation Patient was admitted/placed on observation. Management of patient was discussed with the following: Hospitalist: Agrees to admit. I considered the following discharge prescriptions or medication management in the emergency department Medications were administered in the Emergency Department. See MAR. Independent interpretation of the following test(s) in the Emergency Department CT Scan: My interpretation is No intracranial hemorrhage seen on interpretation of CT scan and. Care significantly affected by the following chronic conditions: Cirrhosis. Counseling: I had a detailed discussion with the patient and/or guardian regarding the historical points, exam findings, and any diagnostic results supporting the discharge/admit diagnosis, lab results, radiology results, the need for further work-up and treatment in the hospital. Response to treatment: There is no appreciated change of the patient's symptoms at this time. 06/12 22:06 Order name: Basic Metabolic Panel; Complete Time: 00:14 rt 06/12 22:06 Order name: CBC with Diff; Complete Time: 23:07 rt 06/12 22:06 Order name: LFT's; Complete Time: 00:14 rt 06/12 22:06 Order name: Magnesium; Complete Time: 00:14 rt 06/12 22:06 Order name: PT-INR; Complete Time: 23:07 rt 06/12 22:06 Order name: Troponin HS; Complete Time: 00:14 rt 06/12 22:06 Order name: UAM; Complete Time: 00:02 rt 06/12 22:10 Order name: Glucose, Ancillary Testing; Complete Time: 23:07 EDMS 06/12 22:40 Order name: Ammonia; Complete Time: 00:14 EDMS 06/13 01:45 Order name: Urinalysis w/ reflexes EDMS 06/12 22:06 Order name: XRAY Chest (1 view) rt 06/12 22:06 Order name: CT Head Brain wo Cont rt 06/12 22:06 Order name: Cardiac monitoring; Complete Time: 23:58 rt 06/12 22:06 Order name: EKG - Nurse/Tech; Complete Time: 23:58 rt 06/12 22:06 Order name: IV Saline Lock; Complete Time: 22:12 rt 06/12 22:06 Order name: Labs collected and sent; Complete Time: 22:20 rt 06/12 22:06 Order name: O2 Per Protocol; Complete Time: 22:20 rt 06/12 22:06 Order name: O2 Sat Monitoring; Complete Time: 22:20 rt 06/12 23:05 Order name: Misc. Order: both green tops to redraw send one on ice; Complete Time: 23:40sp 06/12 23:05 Order name: Misc. Order: recollect light green and dark green(ammonia) tubes; Complete vc1 Time: 23:40 EC/29 23:58 Rate is 79 beats/min. Rhythm is regular, Normal Sinus Rhythm with No ectopy. QRS [place] rt is Normal. NV interval is normal. QRS interval is normal. QT interval is normal. No Q waves. Interpreted by me. Administered Medications: 23:12 Drug: NS 0.9% IV 1000 ml IV at 1 bolus Per protocol; 1000 mL bolus Route: IV; Rate: 1 al5 bolus; Site: right wrist; 06/13 01:38 Follow up: Response: No adverse reaction; IV Status: Completed infusion; IV Intake: al5 1000ml 01:20 Drug: Lactulose PO 30 grams 45 ml PO once Volume: 45 ml; Route: PO; al5 01:38 Follow up: Response: No adverse reaction al5 Disposition Summary: 06/13/24 01:33 Hospitalization Ordered Notes: Hospitalization Status: Inpatient Admission rt Provider: Americo Cavazos rt [facility] rt Condition: Fair rt Problem: an acute exacerbation rt Symptoms: are unchanged rt Bed/Room Type: Standard rt Room Assignment: 207(06/13/24 01:57) rv1 Diagnosis - Hepatic encephalopathy rt Forms: - Medication Reconciliation Form rt - SBAR form rt - Leadership Thank You Letter rt Critical care time excluding procedures: 03:14 Critical care time: Bedside Care: 30 minutes, Consultation: 5 minutes. Total time: 35 rt minutes Signatures: Dispatcher [employer] EDMS Yadira Babcock Vanessa RN RN vc1 Shreyas Cummings MD MD rt Annetta Cabrera rv1 Mary Lou Mcknight RN RN al5 Corrections: (The following items were deleted from the chart) 06/12 22:07 22:06 BASIC METABOLIC PANEL+C.LAB.BRZ ordered. EDMS EDMS 22: 22:06 CBC+H.LAB.BRZ ordered. EDMS EDMS 22: 22:06 HEPATIC FUNCTION+C.LAB.BRZ ordered. EDMS EDMS 22: 22:06 MAGNESIUM+C.LAB.BRZ ordered. EDMS EDMS 22: 22:06 PROTIME (+INR)+COAG.LAB.BRZ ordered. EDMS EDMS 22: 22:06 Troponin High Sensitivity+C.LAB.BRZ ordered. EDMS EDMS 22: 22:06 Urinalysis W/Microscopic+U.LAB.BRZ ordered. EDMS EDMS 22:07 22:07 Chest Single View+RAD.RAD.BRZ ordered. EDMS EDMS 22:07 22:07 Head Brain Wo Cont+CT.RAD.BRZ ordered. EDMS EDMS 06/13 01:57 01:33 rt rv1
--- NOTE | 2024-06-13 01:34 | ER ---
Nurse's Notes [facility] Name: Chalo Little Age: 63 yrs Sex: Male : 1960 Arrival Date: 06/12/2024 Time: 21:45 Bed 15 Private MD: Diagnosis: Hepatic encephalopathy Presentation: 06/12 22:06 Chief complaint: Patient states: " I'm really tired." Sister states pt has been acting vc1 different since Thursday morning. He's getting to where he's shuffling his feet when he walks and shaking so much he can't eat. His sugar was 413 2 hours ago. Coronavirus screen: Client denies travel out of the [place] in the last 14 days. At this time, the client does not indicate any symptoms associated with coronavirus-19. Ebola Screen: Patient negative for fever greater than or equal to 101.5 degrees Fahrenheit, and additional compatible Ebola Virus Disease symptoms Patient denies exposure to infectious person. Patient denies travel to an Ebola-affected area in the 21 days before illness onset. No symptoms or risks identified at this time. Initial Sepsis Screen: Does the patient meet any 2 criteria? No. Patient's initial sepsis screen is negative. Does the patient have a suspected source of infection? No. Patient's initial sepsis screen is negative. Risk Assessment: Do you want to hurt yourself or someone else? Patient reports no desire to harm self or others. Onset of symptoms was June 11, 2024. Care prior to arrival: None. Activity prior to arrival: confused. Mechanism of Injury: No Mechanism of Injury. Transition of care: patient was not received from another setting of care. 22:06 Method Of Arrival: Wheelchair vc1 22:06 Acuity: ASHLEY 3 vc1 Triage Assessment: 22:17 General: Appears in no apparent distress. comfortable, slender, well groomed, Behavior vc1 is cooperative, drowsy, flat. Pain: Denies pain. EENT: No deficits noted. No signs and/or symptoms were reported regarding the EENT system. Neuro: Level of Consciousness is obeys commands, lethargic, Oriented to person, place. Cardiovascular: Capillary refill < 3 seconds Patient's skin is warm and dry. Respiratory: Airway is patent Respiratory effort is even, unlabored, Respiratory pattern is regular, symmetrical. GI: Abdomen is round non-distended, Reports diarrhea. : No deficits noted. No signs and/or symptoms were reported regarding the genitourinary system. Derm: Skin is intact, is healthy with good turgor, Skin is dry, Skin is normal, Skin temperature is cool. Historical: - Allergies: 22:10 No Known Allergies; vc1 - Home Meds: 22:10 metformin 500 mg oral tablet with evening meal [Active]; aspirin 81 mg Oral capsule vc1 daily [Active]; lisinopril 10 mg Oral tablet daily [Active]; melatonin + Calming Botan[employer] 2 gummies nightly [Active]; Xifaxan 550 mg oral tablet 2 times per day [Active]; multivitamin oral tablet 1 tab daily [Active]; atorvastatin 20 mg oral tablet every day at bedtime [Active]; pantoprazole 40 mg oral tablet, delayed release (enteric coated) 2 times per day [Active]; lactulose 10 gram/15 mL (15 mL) Oral solution 45 mL 3 times per day [Active]; - PMHx: 22:10 cirrhosis of liver; CVA; diabetes mellitus; Hypertensive disorder; vc1 - PSHx: 22:10 right carotid blockage sx; TIPS; vc1 - Immunization history:: Adult Immunizations up to date. - Infectious Disease History:: Denies. - Social history:: Smoking status: Patient denies any tobacco usage or history of. - Family history:: not pertinent. Screenin:20 [facility] ED Fall Risk Assessment (Adult) History of falling in the last 3 months, al5 including since admission No falls in past 3 months (0 pts) Confusion or Disorientation Yes (5 pts) Intoxicated or Sedated No (0 pts) Impaired Gait Yes (1 pt) Mobility Assist Device Used Yes (1 pt) Altered Elimination Yes (1 pt) Score/Fall Risk Level 3 or more points = High Risk Oriented to surroundings, Maintained a safe environment, Provided non-skid footwear, Hourly rounding (assess needs \\T\\ fall precautionary measures) done, Used ambulatory aids as needed (educated on \\T\\ assisted with), Apply high fall risk patient identification: yellow non skid footwear/ fall signage, Utilized family, sitter, or virtual nail specialist as indicated. Abuse screen: Denies threats or abuse. Denies injuries from another. Nutritional screening: No deficits noted. Tuberculosis screening: No symptoms or risk factors identified. Assessment: 22:20 Reassessment: Patient appears in no apparent distress at this time. No changes from al5 previously documented assessment. Patient and/or family updated on plan of care and expected duration. Pain level reassessed. Patient is alert, oriented x 3, equal unlabored respirations, skin warm/dry/pink. 23:50 Reassessment: Patient appears in no apparent distress at this time. No changes from al5 previously documented assessment. Patient and/or family updated on plan of care and expected duration. Pain level reassessed. Patient is alert, oriented x 3, equal unlabored respirations, skin warm/dry/pink. 06/13 01:36 Reassessment: Patient appears in no apparent distress at this time. No changes from al5 previously documented assessment. Patient and/or family updated on plan of care and expected duration. Pain level reassessed. Patient is alert, oriented x 3, equal unlabored respirations, skin warm/dry/pink. Vital Signs: 06/12 22:00 BP 148 / 64; Pulse 83; Resp 16; Pulse Ox 99% on R/A; al5 22:06 BP 165 / 72; Pulse 84; Resp 16; Temp 97.9; Pulse Ox 97% ; Weight 83.01 kg (M); vc1 06/13 00:30 BP 149 / 70; Pulse 77; Resp 15; Pulse Ox 98% on R/A; al5 01:00 BP 146 / 73; Pulse 77; Resp 14; Pulse Ox 99% on R/A; al5 ED Course: 06/12 21:50 Patient arrived in ED. ra3 21:51 Shreyas Cummings MD is Attending Physician. rt 22:10 Triage completed. vc1 22:11 Inserted saline lock: 20 gauge in right wrist, using aseptic technique. Blood ha1 collected. Flushed with 10 mL NS. 22:13 Mary Lou Mcknight, HELENA is Primary Nurse. al5 22:17 Arm band placed on right wrist. vc1 22:20 Patient has correct armband on for positive identification. Placed in gown. Bed in low al5 position. Call light in reach. Side rails up X2. Provided Education on: processes and procedures. 22:49 XRAY Chest (1 view) In Process Unspecified. EDMS 23:12 CT Head Brain wo Cont In Process Unspecified. EDMS 23:54 EKG done, by ED staff, reviewed by Shreyas Cummings MD. oe 23:58 Ammonia Sent. cp4 06/13 01:32 Americo Cavazos MD is Hospitalizing Provider. rt 01:37 No provider procedures requiring assistance completed. al5 01:37 Patient admitted, IV remains in place. al5 Administered Medications: 06/12 23:12 Drug: NS 0.9% IV 1000 ml IV at 1 bolus Per protocol; 1000 mL bolus Route: IV; Rate: 1 al5 bolus; Site: right wrist; 06/13 01:38 Follow up: Response: No adverse reaction; IV Status: Completed infusion; IV Intake: al5 1000ml 01:20 Drug: Lactulose PO 30 grams 45 ml PO once Volume: 45 ml; Route: PO; al5 01:38 Follow up: Response: No adverse reaction al5 Medication: 01:37 VIS not applicable for this client. al5 Intake: 01:38 IV: 1000ml; Total: 1000ml. al5 Outcome: 01:33 Decision to Hospitalize by Provider. rt 03:07 Admitted to Med/surg accompanied by tech, via stretcher, room 207, with chart, cp4 03:07 Condition: good 03:07 Instructed on the need for admit, 03:08 Patient left the ED. cp4 Signatures: Dispatcher [employer] EDMS Otilio Llaneslando oe Lora Hoyos, RN RN vc1 Alyssa Sy, RN RN ha1 Shreyas Cummings MD MD rt Potter, Christina cp4 Nona Altman ra3 Mary Lou Mcknight RN RN al5
[2024-06-13] MEDS ORDERED: ONDANSETRON 4 MG/2 ML VIAL IV PRN (01:38)
[2024-06-13] MEDS ORDERED: ACETAMINOPHEN 325 MG TABLET PO PRN (01:38)
[2024-06-13] MEDS ORDERED: LACTULOSE 20 GM/30 ML UCUP PO PRN (01:43)
[2024-06-13] MEDS ORDERED: GLUCAGON 1 MG/VIAL IM PRN (01:45)
[2024-06-13] MEDS ORDERED: D10W 125 ML IV PRN (01:45)
--- NOTE | 2024-06-13 01:49 | P.HP ---
Certification for Inpatient Patient admitted to: Inpatient With expected LOS: >2 Midnights Practitioner: I am a practitioner with admitting privileges, knowledge of patient current condition, hospital course, and medical plan of care. Services: Services provided to patient in accordance with Admission requirements found in Title 42 Section 412.3 of the Code of Federal Regulations Patient History Date of Service: 06/13/24 Reason for admission: Generalized weakness History of Present Illness: 63-year-old male with past medical history of cirrhosis liver, diabetes, h ypertension, CVA, carotid artery stenosis status post endarterectomy, status post TIPS procedure brought to ER with altered mental status. Patient is a poor historian and could not offer much history due to altered mental status. Denies any chest pain or shortness of breath. No nausea vomiting or diarrhea. Unsure patient has been taking lactulose or not. Patient was assessed in the ER and was admitted for hepatic encephalopathy as his ammonia level was high . Allergies No Known Allergies Allergy (Verified 06/13/24 03:39) Home medications list reviewed: Yes Home Medications: Atorvastatin Calcium [Lipitor*] 20 mg PO BEDTIME #30 tab 05/11/24 Lactulose [Cephulac*] 45 ml PO QID 30 Days #5400 ml 05/11/24 Pantoprazole [Protonix Tab*] 40 mg PO BID #60 tab 05/11/24 Rifaximin [Xifaxan] 550 mg PO BID #60 tab 05/11/24 Aspirin Chewable [Aspirin Chewable*] 81 mg PO DAILY 06/13/24 Melatonin/Thean/Lemon/Blank/Lav [Sleep Calm Gummy] 1 each PO BEDTIME 06/13/24 Metformin ER [Glucophage ER*] 500 mg PO DAILY AT SUPPER 06/13/24 Multivitamin/Iron/Folic Acid [Multivitamin with Iron Tablet] 1 each PO DAILY 06/13/24 lisinopriL [Lisinopril] 10 mg PO DAILY 06/13/24 - Past Medical/Surgical History Past Medical History: Reviewed- Non-Contributory -: Hyperlipidemia -: CVA December 2023 -: Diabetes mellitusNIDDM -: Former smoker -: Former alcohol abuse Past Surgical History: Reviewed- Non-Contributory -: Tips procedure -: Right carotid endarterectomy Psychosocial/ Personal History: Single, lives with his sister. Status post TIPS - Family History Mother -: Diabetes Sister -: Diabetes, Other (see notes) Notes: MS - Social History Smoking Status: Former smoker Alcohol use: No CD- Drugs: No Caffeine use: No Review of Systems is unable to be obtained Physical Examination - Vital Signs Temperature: 97.2 F Blood Pressure: 148/64 Pulse: 78 Respirations: 18 Pulse Ox (%): 94 - Physical Exam General: Mild distress, Confused, Other (Drowsy) HEENT: Atraumatic, Normocephalic Neck: Supple, No Thyromegaly Respiratory: Clear to auscultation bilaterally, Normal air movement Cardiovascular: Regular rate/rhythm, Normal S1 S2 Capillary refill: <2 Seconds Gastrointestinal: Soft and benign, W/out hepatosplenomegaly, No tenderness Musculoskeletal: No clubbing, No swelling Integumentary: No rashes Neurological: Other (Drowsy, moves all the limbs) Lymphatics: No axilla or inguinal lymphadenopathy - Studies Laboratory Data (last 24 hrs) 06/12/24 06/12/24 06/12/24 23:30 22:23 22:23 WBC 6.00 Hgb 10.2 L Hct 30.5 L Plt Count 157 PT 13.1 H INR 1.18 Sodium 136 Potassium 4.1 BUN 10 Creatinine 1.09 Glucose 385 H Magnesium 2.4 Total Bilirubin 0.6 AST 37 ALT 41 Alkaline Phosphatase 136 H Assessment and Plan - Plan Hepatic encephalopathy Cirrhosis status post TIPS Hyperammonemia N.p.o. for now Started on lactulose Continue home medications including rifaximin Monitor ammonia level PPI IV twice daily No signs of any GI bleed at this time Diabetes with hyperglycemia IV hydration Glucose monitoring with sliding scale insulin coverage Dehydration Started on IV hydration with banana bag GI and DVT prophylaxis Advanced directive full code Discharge Plan: Home Plan to discharge in: 48 Hours - Advance Directives Does patient have a Living Will: No Does patient have a Durable POA for Healthcare: Yes - Code Status/Comfort Care Code Status: Full Code Time Spent Managing Pts Care (In Minutes): 48
[2024-06-13 03:19] VITALS: BMI 23.1
[2024-06-13] MEDS ORDERED: SODIUM CHLORIDE 0.9% 10ML INJ IV PRN (05:52)
--- NOTE | 2024-06-13 06:26 | RAD REPORT ---
CLINICAL HISTORY: AMS. COMPARISON: None. TECHNIQUE: XR CHEST 1 VIEW 06/12/2024 10:06 PM CDT FINDINGS: Cardiac silhouette is normal in size. Lungs are clear without consolidation, atelectasis, mass or chevy ma. There is no pleural effusion. There is no pneumothorax. There are no acute osseous findings. IMPRESSION: Clear lungs. Electronically signed by: Jerrod Hull MD 06/12/2024 11:54 PM CDT RP Due to temporary technical issues with the PACS/[employer] reporting system, reports are being roger d by the in-house radiologist without review as a courtesy to ensure prompt reporting the interpreting radiologist is fully responsible for the content of the report. Transcribed Date/Time: 06/13/2024 6:26 AM
--- NOTE | 2024-06-13 07:20 | P.PN ---
Date of Service: 06/13/24 Subjective Admitted for hepatic encephalopathy Recently discharged home with sister, Review of Systems Review of symptoms negative unless listed in Vital Signs Reviewed Physical Examination - Physical Exam General: Alert, oriented x 2, forgetful HEENT: Atraumatic, Normocephalic Neck: Supple Respiratory: Normal air movement Cardiovascular: No edema, Regular rate/rhythm, Normal S1 S2 Capillary refill: <2 Seconds Gastrointestinal: Soft and benign Musculoskeletal: No clubbing, generalized weaknss Integumentary: Other (fine scattered rash to trunk) Neurological: Normal speech, Normal affect Lymphatics: No axilla or inguinal lymphadenopathy Assessment and Plan - Plan Hepatic encephalopathy Acute decompensated liver disease secondary to cirrhosis chronic Cirrhosis status post TIPS Constipation, improved History of EtOH abuse Continue with Xifaxan, lactulose, atorvastatin, PPI twice daily NPO, advance to clear liquid and then soft, carb controlled Monitor LFTs and lipase along with electrolytes and serial H&H History rectal bleeding Microcytic anemia Thrombocytopenia stable Trend H&H, platelets, monitor for bleeding H&H is stable Will need to follow-up with GI for colonoscopy, endoscopic per GI recommendation Diabetes with hyperglycemia Gentle IVF - NS at 100ml/hr, FSBS 154 at 11am 05/28/24 Glucose monitoring with sliding scale insulin coverage hgb A1c Subacute CVA Generalized weakness carotid artery stenosis status post endarterectomy, PT, evaluation, treatment Fall precaution CVA 01/05 Volume depletion improved 1L NS bolus GI and DVT prophylaxis Full code - Advance Directives Does patient have a Living Will: No Does patient have a Durable POA for Healthcare: No time 35 min <Amie Pelaez - Last Filed: 06/13/24 07:14> Pt seen and examined. I agree with the note by the MECHANICAL DESIGN TECHNICIAN. Ammonia level is improving 172 <- 192. Will continue lactulose 45mg po QID and rifaximin 550mg po BID. Pt is AAOx0. Continue home meds for other chronic medical problems. <Pema Loyola - Last Filed: 06/13/24 13:17>
[2024-06-13] MEDS: INSULIN REGULAR (HUMAN) 100 UNIT/ML SQ SCH ×2 (07:59→11:42)
[2024-06-13] MEDS: PANTOPRAZOLE 40 MG INJ IVP SCH (09:28)
[2024-06-13] MEDS: ENOXAPARIN 40 MG/0.4 ML SQ SCH (09:28)
[2024-06-13] MEDS: LACTULOSE 20 GM/30 ML UCUP PO SCH ×3 (09:28→14:21)
[2024-06-13] MEDS: Rifaximin 550 MG Tab PO SCH (09:28)
[2024-06-13] MEDS: FOLIC ACID 1 MG, MULTIVITAMINS INJ 10 ML, THIAMINE HCL 100 MG in NA CHLORIDE 0.9% 1,000 ML IV SCH (09:28)
--- NOTE | 2024-06-13 10:16 | EKG ---
Test Date: 2024-06-12 Test Time: 23:48:36 Range Mechanic: NELSON MEASUREMENT RESULTS: Intervals: Rate: 79 [place]: 164 QRSD: 90 QT: 408 QTc: 467 [place]: P: 72 [place]: 164 QRS: 13 T: 42 INTERPRETIVE STATEMENTS: Normal sinus rhythm Nonspecific ST abnormality Abnormal ECG Compared to ECG 05/27/2024 13:49:58 ST (T wave) deviation now present Electronically Signed On 06-13-24 10:16:17 CDT by Akbar Spann
[2024-06-14 05:23] LABS: Absolute Eosinophils 0.1 K/uL (0-0.5); Absolute Lymphocytes (CBC) 0.8 K/uL (0.7-4.9); Absolute Monocytes 0.7 K/uL (0.1-1.3); Absolute Neutrophil 5.2 K/uL (1.8-8.0); Basophils % 0.7 % (0-1.3); Hematocrit 31.2 % (39.6-49.0); Hemoglobin 10.2 g/dL (13.6-17.9); Lymphocytes % 12.3 % (15.3-44.8); MCH 27.4 pg (27.0-35.0); MCHC 32.8 g/dL (32.0-36.0); MCV 83.5 fL (80-100); MPV 7.7 fL (7.6-11.3); Monocytes % 10.1 % (3.3-12.3); Neutrophils % 75.9 % (41.7-73.7); Platelets 129 thou/uL (152-406); RBC Red Blood Cell Count 3.74 M/uL (4.33-5.43); Red Cell Distribution Width 18.8 % (12.1-15.2)
[2024-06-14 05:40] LABS: Albumin 2.5 g/dL (3.4-5.0); Albumin/Globulin Ratio 0.5 (1.1-1.8); Anion Gap 6.9 mEq/L (5.0-15.0); Bilirubin Total 0.8 mg/dL (0.2-1.0); Potassium 3.9 mEq/L (3.5-5.1); Protein, Total 7.5 g/dL (6.4-8.2)
--- NOTE | 2024-06-14 07:13 | P.PN ---
Date of Service: 06/14/24 Subjective Admitted for hepatic encephalopathy sleeping during the day, lactulose added every 3 hours Review of Systems Review of symptoms negative unless listed in Vital Signs Reviewed Physical Examination - Physical Exam General: Alert, oriented x 2, forgetful HEENT: Atraumatic, Normocephalic Neck: Supple Respiratory: Normal air movement Cardiovascular: No edema, Regular rate/rhythm, Normal S1 S2 Capillary refill: <2 Seconds Gastrointestinal: Soft and benign Musculoskeletal: No clubbing, generalized weaknss Integumentary: Other (fine scattered rash to trunk) Neurological: Normal speech, Normal affect Lymphatics: No axilla or inguinal lymphadenopathy Assessment and Plan - Plan Hepatic encephalopathy Acute decompensated liver disease secondary to cirrhosis chronic Cirrhosis status post TIPS Constipation, improved History of EtOH abuse Continue with Xifaxan, lactulose, atorvastatin, PPI twice daily NPO, advance to clear liquid and then soft, carb controlled Monitor LFTs and lipase along with electrolytes and serial H&H History rectal bleeding Microcytic anemia Thrombocytopenia stable Trend H&H, platelets, monitor for bleeding H&H is stable Will need to follow-up with GI for colonoscopy, endoscopic per GI recommendation Diabetes with hyperglycemia Gentle IVF - NS at 100ml/hr, FSBS 154 at 11am 05/28/24 Glucose monitoring with sliding scale insulin coverage hgb A1c Subacute CVA Generalized weakness carotid artery stenosis status post endarterectomy, PT, evaluation, treatment Fall precaution CVA 01/05 Volume depletion improved 1L NS bolus GI and DVT prophylaxis Full code - Advance Directives Does patient have a Living Will: No Does patient have a Durable POA for Healthcare: No time 30 min
[2024-06-14 10:10] VITALS: O2SAT 95
[2024-06-14 12:35] VITALS: BP 153/74; TEMP 99.8
--- NOTE | 2024-06-14 13:52 | P.DS ---
Admission Date: 06/13/24 Discharge Date: 06/14/24 Reason for Admission: Generalized weakness Brief History of Present Illness: effie Little is a 63-year-old male with a past medical history of Cirrhosis of liver status post TIPS procedure; Diabetes mellitus; Hypertensive disorder; CVA (01/05) and hepatic encephalopathy. He lives at home with his sister. His base- line mental status is oriented to x 1-2. Mr. Little will be admitted for hepatic encephalopathy. regular medications of rifaxin Gen: AOx2 HEENT: Atraumatic, Normocephalic Neck: Supple, No Thyromegaly Respiratory: Clear to auscultation bilaterally, Normal air movement Cardiovascular: Regular rate/rhythm, Normal S1 S2 Capillary refill: <2 Seconds Gastrointestinal: Soft and benign, W/out hepatosplenomegaly, No tenderness Musculoskeletal: No clubbing, No swelling Integumentary: No rashes Neurological: Other (Drowsy, moves all the limbs) Lymphatics: No axilla or inguinal lymphadenopathy Hospital Course: Mr. Little is a 63-year-old male with a past medical history of Cirrhosis of liver status post TIPS procedure; Diabetes mellitus; Hypertensive disorder; CVA (01/05) and hepatic encephalopathy. He lives at home with his sister. His base- line mental status is oriented to x 1-2. He presented to the emergency department with confusion, lethargy,as noted to have acute worsening metabolic encephalopathy,. He was evaluated by PT, is tolerating diet, stable to discharge home with family. Instructed family if no BM may take lactuclose q2 hours until patient has BM, then titrate to 3-4 bm daily Assessment Decompensated end-stage liver disease-on Xifaxan, lactulose-goal to have 3-4 bowel movements a day Hepatic encephalopathy/elevated ammonia-supportive care, fall precautions, PT OT Anemia, thrombocytopenia stable Splenomegaly from cirrhosis Cirrhosis post TIPS procedure Diabetes with hyperglycemia Laboratory evaluation elevated elevated ammonia CT eval shows constipation, embolization coils the right upper abdomen abdomen- history of TIPS no acute abnormality Continue home medicines as previously prescribed GOAL: Clear understanding of disease process INSTRUCTIONS: Physician Discharge Instructions: -Follow up with GI after discharge -Follow-up with PCP in 1 to 2 weeks -Please call Dr. Mathis at [phone] if any questions regarding hospital stay -Please call nursing station at [phone] if any nursing or medication questions -Return to the emergency room if symptoms worsen Diet: ADA, low sodium Activity: Fall precautions <Amie Pelaez - Last Filed: 06/14/24 13:57> Admission Date: 06/13/24 Discharge Date: 06/14/24 Hospital Course: Patient was seen and examined. Events of the last 24 hours have been noted. Spoke with with THEE regarding patient's clinical picture after evaluating and examining the patient independently. I performed a substantial part of the MDM during this patient's care today. I personally made or approved the documented management plan and acknowledge its risk of complications. I agree with the findings and documentation provided in the THEE's notes. Continue with medications for cirrhosis. Long-term prognosis poor. Outpatient follow with collar runner. <Kim Mathis - Last Filed: 06/19/24 22:24> Disposition: ROUTINE DISCHARGE Discharge Condition: GOOD Vital Signs/Physical Exam: Temp Pulse Resp BP Pulse Ox 99.8 F 84 16 153/74 H 97 06/14/24 12:00 06/14/24 12:00 06/14/24 12:00 06/14/24 12:00 06/14/24 12:00 Laboratory Data at Discharge: WBC 6.80 thou/uL (4.3-10.9) 06/14/24 05:13 Hgb 10.2 g/dL (13.6-17.9) L 06/14/24 05:13 Hct 31.2 % (39.6-49.0) L 06/14/24 05:13 Plt Count 129 thou/uL (152-406) L 06/14/24 05:13 PT 13.1 SECONDS (9.4-12.5) H 06/12/24 22:23 INR 1.18 06/12/24 22:23 Sodium 139 mEq/L (136-145) 06/14/24 05:13 Potassium 3.9 mEq/L (3.5-5.1) 06/14/24 05:13 BUN 9 mg/dL (7-18) 06/14/24 05:13 Creatinine 1.24 mg/dL (0.70-1.30) 06/14/24 05:13 Glucose 278 mg/dL (74-106) H 06/14/24 05:13 Magnesium 2.4 mg/dL (1.6-2.4) 06/12/24 23:30 Total Bilirubin 0.8 mg/dL (0.2-1.0) 06/14/24 05:13 AST 38 U/L (15-37) H 06/14/24 05:13 ALT 42 U/L (16-61) 06/14/24 05:13 Alkaline Phosphatase 142 U/L (45-117) H 06/14/24 05:13 <Amie Pelaez - Last Filed: 06/14/24 13:57> Vital Signs/Physical Exam: Temp Pulse Resp BP Pulse Ox 99.8 F 84 16 153/74 H 97 06/14/24 12:00 06/14/24 12:00 06/14/24 12:00 06/14/24 12:00 06/14/24 12:00 Laboratory Data at Discharge: WBC 6.80 thou/uL (4.3-10.9) 06/14/24 05:13 Hgb 10.2 g/dL (13.6-17.9) L 06/14/24 05:13 Hct 31.2 % (39.6-49.0) L 06/14/24 05:13 Plt Count 129 thou/uL (152-406) L 06/14/24 05:13 PT 13.1 SECONDS (9.4-12.5) H 06/12/24 22:23 INR 1.18 06/12/24 22:23 Sodium 139 mEq/L (136-145) 06/14/24 05:13 Potassium 3.9 mEq/L (3.5-5.1) 06/14/24 05:13 BUN 9 mg/dL (7-18) 06/14/24 05:13 Creatinine 1.24 mg/dL (0.70-1.30) 06/14/24 05:13 Glucose 278 mg/dL (74-106) H 06/14/24 05:13 Magnesium 2.4 mg/dL (1.6-2.4) 06/12/24 23:30 Total Bilirubin 0.8 mg/dL (0.2-1.0) 06/14/24 05:13 AST 38 U/L (15-37) H 06/14/24 05:13 ALT 42 U/L (16-61) 06/14/24 05:13 Alkaline Phosphatase 142 U/L (45-117) H 06/14/24 05:13 <Kim Mathis - Last Filed: 06/19/24 22:24> Diet: AHA Activity: Fall precautions Time spent managing pt's care (in minutes): 55 <Amie Pelaez - Last Filed: 06/14/24 13:57> <Kim Mathis - Last Filed: 06/19/24 22:24> Home Medications: Atorvastatin Calcium [Lipitor*] 20 mg PO BEDTIME #30 tab 05/11/24 Lactulose [Cephulac*] 45 ml PO QID 30 Days #5400 ml 05/11/24 Pantoprazole [Protonix Tab*] 40 mg PO BID #60 tab 05/11/24 Rifaximin [Xifaxan] 550 mg PO BID #60 tab 05/11/24 Aspirin Chewable [Aspirin Chewable*] 81 mg PO DAILY 06/13/24 Melatonin/Thean/Lemon/Blank/Lav [Sleep Calm Gummy] 1 each PO BEDTIME 06/13/24 Metformin ER [Glucophage ER*] 500 mg PO DAILY AT SUPPER 06/13/24 Multivitamin/Iron/Folic Acid [Multivitamin with Iron Tablet] 1 each PO DAILY 06/13/24 lisinopriL [Lisinopril] 10 mg PO DAILY 06/13/24 Physician Discharge Instructions: OK TO DC IV AND DC HOME FOLLOW-UP WITH PCP IN 1-2 WEEKS CALL ME AT [phone] IF ANY QUESTIONS REGARDING HOSPITAL STAY RETURN TO THE ER IF SYMPTOMS WORSENS FOLLOW-UP WITH GI IN 1-2 WEEKS FOLLOW-UP WITH PCP IN 1-2 WEEKS Followup: Uzair Majano DO [Primary Care Provider] - 1-2 Weeks Bandar Duran MD [ASSOCIATE-ACTIVE - CAN ADMIT] -
== END 2024-06-14 12:45 | disposition home or self-care (01) | DRG 442 ==
LOC: ER 21:45 → 2ND 06-13 01:38
PROVIDERS: ADMIT Family Medicine; ATTEND Hospitalist
DX: K76.82 Hepatic encephalopathy (principal); E72.20 Disorder of urea cycle metabolism, unspecified; K74.60 Unspecified cirrhosis of liver; I10 Essential (primary) hypertension; E86.0 Dehydration; E86.9 Volume depletion, unspecified; D50.9 Iron deficiency anemia, unspecified; D69.6 Thrombocytopenia, unspecified; E11.65 Type 2 diabetes mellitus with hyperglycemia; Z79.82 Long term (current) use of aspirin; Z79.84 Long term (current) use of oral hypoglycemic drugs; Z86.73 Personal history of transient ischemic attack (TIA), and cerebral infarction without residual deficits; Z79.899 Other long term (current) drug therapy; Z87.891 Personal history of nicotine dependence
CPT/HCPCS: 36415; 70450; 71045; 80048; 80053; 80076; 81001; 82140; 82947; 83735; 84484; 85025; 85610; 93005; 94760; 96360; 96361; 97116; 97161; 97530; 99285; J1650; J2470; J3411; J7030

== ENCOUNTER 2024-07-01 16:55 | Inpatient (IN) | payer OTHER ==
[2024-07-01 18:30] LABS: Absolute Eosinophils 0.1 K/uL (0-0.5); Absolute Lymphocytes (CBC) 1.4 K/uL (0.7-4.9); Absolute Monocytes 0.4 K/uL (0.1-1.3); Absolute Neutrophil 2.1 K/uL (1.8-8.0); Basophils % 0.9 % (0-1.3); Eosinophils % 1.3 % (0-4.4); Hematocrit 33.1 % (39.6-49.0); Lymphocytes % 34.6 % (15.3-44.8); MCH 26.9 pg (27.0-35.0); MCHC 33.1 g/dL (32.0-36.0); MCV 81.3 fL (80-100); MPV 7.5 fL (7.6-11.3); Monocytes % 11.2 % (3.3-12.3); Nucleated Red Blood Cells % 0.1 % (0-0); Platelets 152 thou/uL (152-406); RBC Red Blood Cell Count 4.08 M/uL (4.33-5.43)
[2024-07-01] MEDS ORDERED: NA CHLORIDE 0.9% 1,000 ML ONE ×2 (18:32→19:23)
[2024-07-01 18:37] LABS: PT Prothrombin Time 13.6 SECONDS (9.4-12.5); PTT, Activated Partial Thromb 42.2 SECONDS (24.3-36.9); Protime INR 1.22
--- NOTE | 2024-07-01 18:48 | RAD REPORT ---
Procedure: Chest Single View HISTORY: Confusion COMPARISON: May 2024 FINDINGS: The lungs appear clear of acute infiltrate. No significant pleural effusion noted. The heart is normal size. IMPRESSION: No acute abnormality is displayed.
[2024-07-01 18:51] LABS: Albumin 2.5 g/dL (3.4-5.0); Albumin/Globulin Ratio 0.5 (1.1-1.8); Bilirubin Total 0.6 mg/dL (0.2-1.0); Globulin 4.8 g/dL (2.3-3.5); Protein, Total 7.3 g/dL (6.4-8.2); Troponin High Sensitivity 5.9 pg/mL (<58.9)
[2024-07-01] MEDS ORDERED: LACTULOSE 20 GM/30 ML UCUP ONE (19:23)
--- NOTE | 2024-07-01 19:46 | RAD REPORT ---
EXAM: CT brain without contrast HISTORY: Confusion/alteration of consciousness COMPARISON: May 2024 TECHNIQUE: Multiple contiguous axial images were obtained and a CT of the brain without contrast.. Sagittal and coronal reconstruction performed. Automated exposure control, adjustment of the mA and/or kV according to patient size, and/or iterative reconstruction. Unless otherwise specified, incidental f indings do not require dedicated imaging follow-u FINDINGS: An intracranial bleed is not seen Ventricles are normal caliber No extra-axial fluid collection noted Low-density right frontal lobe compatible with old infarction. No fluid within the visualized sinuses or mastoids noted. IMPRESSION: No acute intracranial abnormality noted. If the patient's symptoms persist MRI of the brain would be recommended.
[2024-07-01 19:54] LABS: Specific Gravity 1.011 (1.005-1.030); Sqamous Epithelial None Seen /HPF (None Seen); Urine Bacteria None Seen /HPF (<20); Urine Bilirubin NEGATIVE (Negative); Urine Blood 3+ (Negative); Urine Clarity Clear (Clear); Urine Color Light-Yellow (Yellow); Urine Crystals Unidentified Few /HPF (None Seen); Urine Culture Reflex Order NOT NEEDED; Urine Glucose NEGATIVE (Negative); Urine Ketones NEGATIVE (Negative); Urine Microscopic Reflex YN ORDER UMIC; Urine Mucus Slight /HPF (None Seen); Urine Nitrite NEGATIVE (Negative); Urine Protein NEGATIVE (Negative); Urine RBC 21-50 /HPF (None Seen); Urine Urobilinogen Normal (Normal); Urine WBC <5 /HPF (<5); Urine Yeast (Budding) Trace /HPF (None Seen)
[2024-07-01 20:00] LABS: Barbiturates NEGATIVE (NEGATIVE); Benzodiazepines NEGATIVE (NEGATIVE); Cocaine NEGATIVE (NEGATIVE); METHAMPHETAM NEGATIVE (NEGATIVE); Methadone NEGATIVE (NEGATIVE); Opiates NEGATIVE (NEGATIVE); Phencyclidine NEGATIVE (NEGATIVE); THC Cannibis NEGATIVE (NEGATIVE)
--- NOTE | 2024-07-01 21:05 | ER ---
Nurse's Notes [facility] Name: hCalo Little Age: 63 yrs Sex: Male : 1960 Arrival Date: 07/01/2024 Time: 16:55 Bed 2 Private MD: Diagnosis: Altered mental status, unspecified Presentation: 07/01 17:10 Coronavirus screen: At this time, the client does not indicate any symptoms associated aa5 with coronavirus-19. Ebola Screen: Patient denies travel to an Ebola-affected area in the 21 days before illness onset. Initial Sepsis Screen: Does the patient meet any 2 criteria? No. Patient's initial sepsis screen is negative. Does the patient have a suspected source of infection? No. Patient's initial sepsis screen is negative. Risk Assessment: Do you want to hurt yourself or someone else? Unable to obtain. Onset of symptoms was July 01, 2024. 17:10 Acuity: ASHLEY 2 aa5 17:10 Method Of Arrival: Wheelchair aa5 17:10 Chief complaint: Pt's sister/caregiver reports AMS today. aa5 Historical: - Allergies: 17:10 No Known Allergies; aa5 - Home Meds: 17:32 lactulose 10 gram/15 mL oral solution 45 mL 4 times per day [Active]; Xifaxan 550 mg aa5 Oral tablet 2 times per day [Active]; pantoprazole 40 mg Oral tablet 2 times per day [Active]; metformin 500 mg Oral tablet 2 times per day [Active]; atorvastatin 20 mg Oral tablet every day at bedtime [Active]; lisinopril 10 mg Oral tablet daily [Active]; aspirin 81 mg Oral capsule daily [Active]; multivitamin Oral tablet 1 tab daily [Active]; melatonin 3 mg oral tablet once daily at bedtime [Active]; - PMHx: 17:10 cirrhosis of liver; CVA; diabetes mellitus; Hypertensive disorder; Hep C (Unknown); aa5 Alcoholism; Hypercholesterolemia; Variceal bleeding; - PSHx: 17:10 right carotid blockage sx; TIPS; aa5 - Immunization history:: Adult Immunizations unknown. - Infectious Disease History:: Denies. - Social history:: Smoking status: Patient/guardian denies using tobacco, Stopped _ months ago 3. Screenin:10 [facility] ED Fall Risk Assessment (Adult) History of falling in the last 3 months, aa5 including since admission No falls in past 3 months (0 pts) Confusion or Disorientation Yes (5 pts) Intoxicated or Sedated No (0 pts) Impaired Gait No (0 pts) Mobility Assist Device Used No (0 pt) Altered Elimination No (0 pt) Score/Fall Risk Level 3 or more points = High Risk Oriented to surroundings, Maintained a safe environment, Educated pt \T\ family on fall prevention, incl call for assistance when getting out of bed, Hourly rounding (assess needs \T\ fall precautionary measures) done, Utilized family, sitter, or virtual automotive sales specialist as indicated. Abuse screen: No signs of abuse noted. Nutritional screening: No deficits noted. Tuberculosis screening: No symptoms or risk factors identified. Assessment: 17:10 General: Appears comfortable, Behavior is calm, cooperative. Pain: Denies pain. Neuro: aa5 Level of Consciousness is obeys commands, confused, Oriented to person, Clinical Data Coordinator are weak bilaterally Moves all extremities. Weakness in bilateral arm(s) leg(s) Speech is normal, Facial symmetry appears normal. Cardiovascular: Heart tones S1 S2 present Rhythm is regular. Respiratory: Airway is patent Respiratory effort is even, unlabored, Respiratory pattern is regular, symmetrical. GI: Abdomen is round non-distended, Bowel sounds present X 4 quads. Abd is soft and non tender X 4 quads. : No signs and/or symptoms were reported regarding the genitourinary system. EENT: No signs and/or symptoms were reported regarding the EENT system. Derm: Skin is pink, warm \T\ dry. Musculoskeletal: Range of motion: intact in all extremities. 18:36 Reassessment: Warm blankets provided and lights dimmed for comfort. Pt now resting with aa5 eyes closed. . 19:35 Reassessment: Patient and/or family updated on plan of care and expected duration. Pain br2 level reassessed. Patient is alert, oriented x 3, equal unlabored respirations, skin warm/dry/pink. General: Appears in no apparent distress. comfortable, Behavior is calm, cooperative, quiet. Pain: Denies pain. Neuro: Ribera Agitation-Sedation Scale (RASS): 0 - Alert and Calm Level of Consciousness is awake, alert, obeys commands, confused, Oriented to person, Clinical Data Coordinator are weak bilaterally Moves all extremities. Weakness Speech is slurred. Cardiovascular: Heart tones present. Respiratory: Airway is patent Respiratory effort is even, unlabored, Respiratory pattern is regular, symmetrical. GI: No signs and/or symptoms were reported involving the gastrointestinal system. : No signs and/or symptoms were reported regarding the genitourinary system. EENT: No signs and/or symptoms were reported regarding the EENT system. Derm: Skin is dry, Skin is pink, warm \T\ dry. Skin temperature is warm. Musculoskeletal: Range of motion: intact in all extremities. 22:14 Reassessment: Patient appears in no apparent distress at this time. No changes from vc1 previously documented assessment. Patient and/or family updated on plan of care and expected duration. Pain level reassessed. 23:24 Reassessment: Patient appears in no apparent distress at this time. No changes from vc1 previously documented assessment. Patient and/or family updated on plan of care and expected duration. Pain level reassessed. Vital Signs: 17:10 BP 135 / 61; Pulse 75; Resp 18 S; Temp 97.2(O); Pulse Ox 100% on R/A; aa5 18:30 BP 161 / 89; Pulse 64; Resp 18 S; Pulse Ox 98% on R/A; aa5 20:08 BP 161 / 83; Pulse 65; Resp 10 S; Temp 97.7; Pulse Ox 100% on R/A; Pain 0/10; br2 21:00 BP 141 / 65; Pulse 77; Resp 13; Pulse Ox 98% ; Weight 82.55 kg; Height 6 ft. 1 in. ; vc1 22:14 BP 134 / 78; Pulse 79; Resp 13; Pulse Ox 100% ; vc1 23:00 BP 134 / 78; Pulse 76; Resp 12; Pulse Ox 98% ; vc1 21:00 Body Mass Index 24.01 (82.55 kg, 185.42 cm) vc1 20:08 Pain Scale: Adult br2 ED Course: 17:03 Patient arrived in ED. im 17:04 Harvinder Hammer PA is PHCP. cp 17:04 Harvinder Velazquez MD is Attending Physician. cp 17:10 Arm band placed on Patient placed in an exam room, on a stretcher. aa5 17:10 Patient has correct armband on for positive identification. Placed in gown. Bed in low aa5 position. Call light in reach. Side rails up X2. Adult w/ patient. Client placed on continuous cardiac and pulse oximetry monitoring. NIBP monitoring applied. athletic monitor on. Pulse ox on. NIBP on. 17:27 Mary Kay Solitario, HELENA is Primary Nurse. aa5 17:28 Triage completed. aa5 18:00 First set of blood cultures drawn by me. aa5 18:15 Inserted saline lock: 18 gauge in left forearm, using aseptic technique. Flushed with aa5 10 mL NS. 18:17 Initial lab(s) drawn, by me, sent to lab. Second set of blood cultures drawn by me. aa5 18:21 EKG done, by ED staff, reviewed by Harvinder FERGUSON. aa5 18:28 Chest Single View XRAY In Process Unspecified. EDMS 19:05 Report given to HELENA Paulino and HELENA Moreno. aa5 19:08 CT Head Brain wo Cont In Process Unspecified. EDMS 19:43 UDS Sent. br2 19:43 Urinalysis w/ reflexes Sent. br2 19:44 Report received from YVETTE ARREOLA. br2 20:51 Primary Nurse role handed off by Mary Kay Solitario, HELENA rv1 20:55 Tiffanie Merino, HELENA is Primary Nurse. br2 21:03 Americo Cavazos MD is Hospitalizing Provider. cp 23:25 Provided Education on: fall safety. vc1 23:25 No provider procedures requiring assistance completed. Patient admitted, IV remains in vc1 place. Administered Medications: 18:36 Drug: NS 0.9% IV 1000 ml IV at 1000 ml once; to be given as a bolus over 60 minutes aa5 Route: IV; Rate: 1000 ml; Site: left forearm; 19:36 Follow up: IV Status: Completed infusion; IV Intake: 100ml vc1 19:38 Drug: Lactulose PO 30 grams 45 ml PO once Volume: 45 ml; Route: PO; br2 22:08 Follow up: Response: No adverse reaction; No change in condition vc1 19:38 Drug: NS 0.9% IV 1000 ml IV at 1 bolus Per protocol; to be given as a bolus over 60 br2 minutes Route: IV; Rate: 1 bolus; Site: left forearm; 20:38 Follow up: IV Status: Completed infusion; IV Intake: 1000ml vc1 Medication: 18:37 VIS not applicable for this client. aa5 Intake: 19:36 IV: 100ml; Total: 100ml. vc1 20:38 IV: 1000ml; Total: 1100ml. vc1 Outcome: 21:04 Decision to Hospitalize by Provider. cp 23:25 Admitted to Tele accompanied by tech, via stretcher, room 401, with chart, Report vc1 called to HELENA Nicholas 23:25 Condition: good 23:25 Instructed on the need for admit, 23:27 Patient left the ED. vc1 Signatures: Dispatcher [employer] EDMary Kay Melendez, RN RN aa5 Harvinder Hammer PA PA cp Lora Hoyos RN RN vc1 Annetta Cabrera rv1 Maude Chan Belinda RN RN br2
--- NOTE | 2024-07-01 21:05 | EDPHYS ---
Physician Documentation [facility] Name: Chalo Little Age: 63 yrs Sex: Male : 1960 Arrival Date: 07/01/2024 Time: 16:55 Bed 2 Private MD: ED Physician Harvinder Velazquez HPI: 07/01 17:35 This 63 yrs old Male presents to ER via Wheelchair with complaints of Altered Mental cp Status. 17:35 The patient presents with confusion, decreased mental status, general weakness. cp 17:35 Onset: The symptoms/episode began/occurred today. Possible causes: known PMHX cp significant for liver disease. Associated signs and symptoms: Pertinent negatives: agitation, chest pain, diarrhea, vomiting, fever. Patient's baseline: Neuro: alert and fully oriented, Ambulation: walks without assistance, Speech: normal, The patient has a previous history of CVA. HX given by sister. Historical: - Allergies: 17:10 No Known Allergies; aa5 - Home Meds: 17:32 lactulose 10 gram/15 mL oral solution 45 mL 4 times per day [Active]; Xifaxan 550 mg aa5 Oral tablet 2 times per day [Active]; pantoprazole 40 mg Oral tablet 2 times per day [Active]; metformin 500 mg Oral tablet 2 times per day [Active]; atorvastatin 20 mg Oral tablet every day at bedtime [Active]; lisinopril 10 mg Oral tablet daily [Active]; aspirin 81 mg Oral capsule daily [Active]; multivitamin Oral tablet 1 tab daily [Active]; melatonin 3 mg oral tablet once daily at bedtime [Active]; - PMHx: 17:10 cirrhosis of liver; CVA; diabetes mellitus; Hypertensive disorder; Hep C (Unknown); aa5 Alcoholism; Hypercholesterolemia; Variceal bleeding; - PSHx: 17:10 right carotid blockage sx; TIPS; aa5 - Immunization history:: Adult Immunizations unknown. - Infectious Disease History:: Denies. - Social history:: Smoking status: Patient/guardian denies using tobacco, Stopped _ months ago 3. ROS: 17:40 Constitutional: Negative for fever, poor PO intake, cp 17:40 Constitutional: HX per HPI cp 17:40 Cardiovascular: Negative for chest pain, 17:40 Respiratory: Negative for cough, wheezing, 17:40 Abdomen/GI: Negative for abdominal pain, vomiting, diarrhea, constipation, black/tarry stool, rectal bleeding, 17:40 Neuro: Positive for altered mental status, Exam: 18:25 ECG was reviewed by the Attending Physician. cp Vital Signs: 17:10 BP 135 / 61; Pulse 75; Resp 18 S; Temp 97.2(O); Pulse Ox 100% on R/A; aa5 18:30 BP 161 / 89; Pulse 64; Resp 18 S; Pulse Ox 98% on R/A; aa5 20:08 BP 161 / 83; Pulse 65; Resp 10 S; Temp 97.7; Pulse Ox 100% on R/A; Pain 0/10; br2 21:00 BP 141 / 65; Pulse 77; Resp 13; Pulse Ox 98% ; Weight 82.55 kg; Height 6 ft. 1 in. ; vc1 22:14 BP 134 / 78; Pulse 79; Resp 13; Pulse Ox 100% ; vc1 23:00 BP 134 / 78; Pulse 76; Resp 12; Pulse Ox 98% ; vc1 21:00 Body Mass Index 24.01 (82.55 kg, 185.42 cm) vc1 20:08 Pain Scale: Adult br2 MDM: 17:09 Medical Screening Exam initiated luiz 21:05 Data reviewed: vital signs, nurses notes, lab test result(s), EKG, radiologic studies, cp CT scan, plain films, and as a result, I will admit patient. 21:05 Differential Diagnosis: CVA, electrolyte abnormality, hypoglycemia, overdose, cp pneumonia, seizure, sepsis, UTI, volume depletion. Consideration of Admission/Observation Patient was admitted/placed on observation. Management of patient was discussed with the following: Hospitalist: DR Cavazos will admit after discussion. I considered the following discharge prescriptions or medication management in the emergency department Medications were administered in the Emergency Department. See MAR. Independent interpretation of the following test(s) in the Emergency Department EKG: See my EKG interpretation above. Historians other than the Patient: Family Member: sister provides HPI. Care significantly affected by the following chronic conditions: Hypertension, Liver Disease. Counseling: I had a detailed discussion with the patient and/or guardian regarding the historical points, exam findings, and any diagnostic results supporting the discharge/admit diagnosis, lab results, radiology results, the need for further work-up and treatment in the hospital. Response to treatment: the patient's symptoms have mildly improved after treatment. 07/01 17:33 Order name: Blood Culture Adult (2) cp 07/01 17:33 Order name: CBC with Diff; Complete Time: 18:46 cp 07/01 18:47 Interpretation: Normal except: WBC 4.00; RBC 4.08; HGB 11.0; HCT 33.1; MCH 26.9; RDW cp 17.0; MPV 7.5. 07/01 17:33 Order name: CMP; Complete Time: 19:48 cp 07/01 20:50 Interpretation: Normal except: GLUC 224; GFR 83; AST 55; ALB 2.5; GLOB 4.8; A/G 0.5. cp 07/01 17:33 Order name: Lactate w/ 2H reflex if indic.; Complete Time: 19:48 cp 07/01 17:33 Order name: Protime (+inr); Complete Time: 18:46 cp 07/01 17:33 Order name: Ptt, Activated; Complete Time: 18:46 cp 07/01 17:33 Order name: Urinalysis w/ reflexes; Complete Time: 20:18 cp 07/01 20:50 Interpretation: Reviewed. cp 07/01 17:33 Order name: Troponin High Sensitivity; Complete Time: 19:48 cp 07/01 17:33 Order name: AMMONIA; Complete Time: 18:46 cp 07/01 17:33 Order name: UDS; Complete Time: 20:18 cp 07/01 17:33 Order name: ETOH Level; Complete Time: 19:48 cp 07/01 20:47 Order name: Ghost Lactate-NO COLLECT Timer; Complete Time: 20:49 EDMS 07/01 21:25 Order name: Lactate Sepsis 2 HR Follow-up EDMS 07/01 22:33 Order name: Urinalysis w/ reflexes EDMS 07/01 22:33 Order name: CBC with Automated Diff EDMS 07/01 22:33 Order name: CBC with Automated Diff EDMS 07/01 22:33 Order name: Comprehensive Metabolic Panel EDMS 07/01 22:33 Order name: Comprehensive Metabolic Panel EDMS 07/01 22:33 Order name: Magnesium EDMS 07/01 22:33 Order name: Magnesium EDMS 07/01 22:33 Order name: Phosphorus EDMS 07/01 22:33 Order name: Phosphorus EDMS 07/01 17:33 Order name: Chest Single View XRAY; Complete Time: 19:48 cp 07/01 18:28 Order name: CT Head Brain wo Cont; Complete Time: 19:48 cp 07/01 17:33 Order name: EKG; Complete Time: 17:33 cp 07/01 17:33 Order name: Cardiac monitoring; Complete Time: 18:23 cp 07/01 17:33 Order name: EKG - Nurse/Tech; Complete Time: 18:21 cp 07/01 17:33 Order name: IV Saline Lock - Large Bore; Complete Time: 18:23 cp 07/01 17:33 Order name: Labs collected and sent; Complete Time: 18:23 cp 07/01 17:33 Order name: O2 Per Protocol; Complete Time: 18:23 cp 07/01 17:33 Order name: O2 Sat Monitoring; Complete Time: 18:23 cp 07/01 17:33 Order name: Vital Signs; Complete Time: 18:23 cp EC:25 Rate is 68 beats/min. Rhythm is regular. KS interval is normal. QRS interval is normal. cp QT interval is normal. T waves are Inverted in lead aVR. Interpreted by me. Reviewed by me. Administered Medications: 18:36 Drug: NS 0.9% IV 1000 ml IV at 1000 ml once; to be given as a bolus over 60 minutes aa5 Route: IV; Rate: 1000 ml; Site: left forearm; 19:36 Follow up: IV Status: Completed infusion; IV Intake: 100ml vc1 19:38 Drug: Lactulose PO 30 grams 45 ml PO once Volume: 45 ml; Route: PO; br2 22:08 Follow up: Response: No adverse reaction; No change in condition vc1 19:38 Drug: NS 0.9% IV 1000 ml IV at 1 bolus Per protocol; to be given as a bolus over 60 br2 minutes Route: IV; Rate: 1 bolus; Site: left forearm; 20:38 Follow up: IV Status: Completed infusion; IV Intake: 1000ml vc1 Disposition: 07/02 23:00 Chart complete. cp Disposition Summary: 07/01/24 21:04 Hospitalization Ordered Notes: Hospitalization Status: Inpatient Admission cp Provider: Americo Cavazos cp Location: Telemetry/[facility] (Inpatient) cp Condition: Stable cp Problem: an acute exacerbation cp Symptoms: have improved cp Bed/Room Type: Standard cp Room Assignment: 401(07/01/24 22:41) cg Diagnosis - Altered mental status, unspecified cp Forms: - Medication Reconciliation Form cp - SBAR form cp - Leadership Thank You Letter cp Signatures: Dispatcher [employer] Harvinder Gallagher MD MD cha Calderon, Audri RN RN aa5 Harvinder Hammer PA PA cp Garcia, Cindy, RN RN Tiffanie Reeves RN RN br2 Lora Hoyos RN vc1 Corrections: (The following items were deleted from the chart) 07/01 18:30 17:33 Accucheck ordered. cp aa5 20:55 20:50 Within normal limits. cp cp 22:41 21:04 cp cg
[2024-07-01] MEDS ORDERED: ONDANSETRON 4 MG/2 ML VIAL IV PRN (22:21)
[2024-07-01] MEDS ORDERED: ACETAMINOPHEN 325 MG TABLET PO PRN (22:21)
--- NOTE | 2024-07-01 22:33 | P.HP ---
Certification for Inpatient Patient admitted to: Inpatient With expected LOS: >2 Midnights Practitioner: I am a practitioner with admitting privileges, knowledge of patient current condition, hospital course, and medical plan of care. Services: Services provided to patient in accordance with Admission requirements found in Title 42 Section 412.3 of the Code of Federal Regulations Patient History Date of Service: 07/02/24 Reason for admission: AMS History of Present Illness: 63-year-old male with past medical history of cirrhosis liver, diabetes, hypertension, CVA, carotid artery stenosis status post endarterectomy, status post TIPS procedure brought to ER with altered mental status. Patient is a poor historian and could not offer much history due to altered mental status. Denies any chest pain or shortness of breath. No nausea vomiting or diarrhea. Unsure patient has been taking lactulose or not. Patient was assessed in the ER and was admitted for hepatic encephalopathy as his ammonia level was high . Allergies No Known Allergies Allergy (Verified 06/13/24 03:39) Home medications list reviewed: Yes Home Medications: Atorvastatin Calcium [Lipitor*] 20 mg PO BEDTIME #30 tab 05/11/24 Lactulose [Cephulac*] 45 ml PO QID 30 Days #5400 ml 05/11/24 Rifaximin [Xifaxan] 550 mg PO BID #60 tab 05/11/24 Aspirin Chewable [Aspirin Chewable*] 81 mg PO DAILY 06/13/24 Metformin ER [Glucophage ER*] 500 mg PO BID 06/13/24 Multivitamin/Iron/Folic Acid [Multivitamin with Iron Tablet] 1 each PO DAILY 06/13/24 lisinopriL [Lisinopril] 10 mg PO DAILY 06/13/24 Pantoprazole [Protonix Tab*] 40 mg PO DAILY 07/02/24 - Past Medical/Surgical History Diabetic: Yes Past Medical History: Reviewed- Non-Contributory -: Hyperlipidemia -: CVA December 2023 -: Diabetes mellitusNIDDM -: Former smoker -: Former alcohol abuse -: Hep C -: Cirrhosis Past Surgical History: Reviewed- Non-Contributory -: Tips procedure -: Right carotid endarterectomy Psychosocial/ Personal History: Single, lives with his sister. Status post TIPS - Family History Mother -: Diabetes Sister -: Diabetes, Other (see notes) Notes: MS - Social History Smoking Status: Former smoker Alcohol use: No CD- Drugs: No Caffeine use: No Review of Systems is unable to be obtained Physical Examination - Vital Signs Temperature: 97.6 F Blood Pressure: 154/70 Pulse: 72 Respirations: 80 Pulse Ox (%): 91 - Physical Exam General: Oriented x1, Mild distress, Confused HEENT: Atraumatic, Normocephalic Neck: Supple, 2+ carotid pulse no bruit, No Thyromegaly Respiratory: Clear to auscultation bilaterally, Normal air movement Cardiovascular: Normal pulses, Regular rate/rhythm Capillary refill: <2 Seconds Gastrointestinal: Soft and benign, W/out hepatosplenomegaly Musculoskeletal: No clubbing, No swelling Integumentary: No rashes Neurological: Other (Drowsy ) Lymphatics: No axilla or inguinal lymphadenopathy - Studies Laboratory Data (last 24 hrs) 07/01/24 07/01/24 07/01/24 18:17 18:17 18:17 WBC 4.00 L Hgb 11.0 L Hct 33.1 L Plt Count 152 PT 13.6 H INR 1.22 APTT 42.2 H Sodium 138 Potassium 4.0 BUN 10 Creatinine 1.03 Glucose 224 H Total Bilirubin 0.6 AST 55 H ALT 58 Alkaline Phosphatase 110 Assessment and Plan - Plan Hepatic encephalopathy Cirrhosis status post TIPS Hyperammonemia N.p.o. for now Started on lactulose Continue home medications including rifaximin Monitor ammonia level PPI IV twice daily No signs of any GI bleed at this time Diabetes with hyperglycemia IV hydration Glucose monitoring with sliding scale insulin coverage Dehydration Started on IV hydration with banana bag GI and DVT prophylaxis Advanced directive full code Discharge Plan: Home Plan to discharge in: 48 Hours - Advance Directives Does patient have a Living Will: No Does patient have a Durable POA for Healthcare: Yes - Code Status/Comfort Care Code Status: Full Code Time Spent Managing Pts Care (In Minutes): 48
[2024-07-02 02:18] VITALS: BMI 22.9
[2024-07-02 07:41] LABS: Absolute Eosinophils 0.1 K/uL (0-0.5); Absolute Lymphocytes (CBC) 1.5 K/uL (0.7-4.9); Absolute Monocytes 0.4 K/uL (0.1-1.3); Absolute Neutrophil 1.7 K/uL (1.8-8.0); Basophils % 1.1 % (0-1.3); Eosinophils % 1.9 % (0-4.4); Hematocrit 31.1 % (39.6-49.0); Hemoglobin 10.6 g/dL (13.6-17.9); Lymphocytes % 39.7 % (15.3-44.8); MCH 27.3 pg (27.0-35.0); MCHC 34.2 g/dL (32.0-36.0); MCV 79.9 fL (80-100); Monocytes % 11.6 % (3.3-12.3); Neutrophils % 45.7 % (41.7-73.7); Nucleated Red Blood Cells % 0.3 % (0-0); Platelets 143 thou/uL (152-406); RBC Red Blood Cell Count 3.89 M/uL (4.33-5.43); Red Cell Distribution Width 16.8 % (12.1-15.2)
[2024-07-02 08:00] LABS: Albumin 2.4 g/dL (3.4-5.0); Albumin/Globulin Ratio 0.5 (1.1-1.8); Anion Gap 7.9 mEq/L (5.0-15.0); Bilirubin Total 0.7 mg/dL (0.2-1.0); Globulin 4.4 g/dL (2.3-3.5); Magnesium 2.1 mg/dL (1.6-2.4); Phosphorus 3.7 mg/dL (2.5-4.9); Potassium 3.9 mEq/L (3.5-5.1); Protein, Total 6.8 g/dL (6.4-8.2)
[2024-07-02] MEDS: ASPIRIN 81 MG CHEWABLE TABLET PO SCH (08:36)
[2024-07-02] MEDS: FOLIC ACID 1 MG, MULTIVITAMINS INJ 10 ML, THIAMINE HCL 100 MG in NA CHLORIDE 0.9% 1,000 ML IV SCH (08:36)
[2024-07-02] MEDS: LACTULOSE 20 GM/30 ML UCUP PO SCH ×2 (08:36→16:28)
[2024-07-02] MEDS: PANTOPRAZOLE 40MG TABLET PO SCH (08:36)
[2024-07-02] MEDS: lisinopriL 10 MG TAB PO SCH (08:43)
[2024-07-02 09:33] LABS: Blood Morphology Comment NOT SEEN (NOT SEEN); Platelet Estimate ADEQ; White Blood Cell Scan OK (OK)
[2024-07-02] MEDS: Rifaximin 550 MG Tab PO SCH (10:00)
[2024-07-02] MEDS: FLU (Fluarix Triv) TS24-25(6MOS UP)/PF 45 MCG/0.5 ML Syringe IM ONE (11:22)
[2024-07-02] MEDS ORDERED: INFLUENZA VACCINE (for 6+ mo) 0.5 ML DOSE IMVAC ONE (12:00)
[2024-07-02] MEDS: NA CHLORIDE 0.9% 1,000 ML IV SCH (12:33)
[2024-07-02] MEDS: INSULIN REGULAR (HUMAN) 100 UNIT/ML SQ SCH (13:30)
--- NOTE | 2024-07-02 13:32 | P.PN ---
Date of Service: 07/02/24 Subjective Sleeping, agitated with conversation no new complaints ROS 10 point ROS as noted above, otherwise negative Physical Exam General: Sleeping, Oriented x1, Confused, NAD HEENT: Atraumatic, Normocephalic Neck: Supple, 2+ carotid pulse no bruit, No Thyromegaly Respiratory: Clear to auscultation bilaterally, Normal air movement, on RA Cardiovascular: Normal pulses, Regular rate/rhythm Capillary refill: <2 Seconds Gastrointestinal: Soft on palpation, ND/NT, normal active bowel sounds Musculoskeletal: No clubbing, No swelling Integumentary: No rashes Neurological: Other (Drowsy ) Lymphatics: No axilla or inguinal lymphadenopathy Vitals Reviewed Problem list Hepatic encephalopathy Cirrhosis status post TIPS Hyperammonemia Lactic acidosis Diabetes with hyperglycemia Dehydration Assessment and Plan Hepatic encephalopathy Cirrhosis status post TIPS Hyperammonemia Lactic acidosis -Diet started -continue lactulose -Continue home medications including rifaximin -Monitor ammonia level -PPI IV twice daily -No signs of any GI bleed at this time -Toxicology negative Diabetes with hyperglycemia -IV hydration -Glucose monitoring with sliding scale insulin coverage Dehydration -IVF GI and DVT prophylaxis Advanced directive full code Discharge Plan: Home Plan to discharge in: 48 Hours
[2024-07-02] MEDS: ATORVASTATIN 20 MG TAB PO SCH (22:18)
[2024-07-03 04:53] LABS: Specific Gravity 1.014 (1.005-1.030); Sqamous Epithelial None Seen /HPF (None Seen); Urine Bacteria None Seen /HPF (<20); Urine Bilirubin NEGATIVE (Negative); Urine Blood 3+ (OVER) (Negative); Urine Clarity Clear (Clear); Urine Color Light-Yellow (Yellow); Urine Culture Reflex Order NOT NEEDED; Urine Glucose NEGATIVE (Negative); Urine Ketones NEGATIVE (Negative); Urine Microscopic Reflex YN ORDER UMIC; Urine Nitrite NEGATIVE (Negative); Urine Protein NEGATIVE (Negative); Urine RBC >50 /HPF (None Seen); Urine Urobilinogen 1+ (Normal); Urine WBC <5 /HPF (<5)
[2024-07-03 06:56] LABS: Absolute Lymphocytes (CBC) 1.5 K/uL (0.7-4.9); Absolute Monocytes 0.4 K/uL (0.1-1.3); Absolute Neutrophil 1.7 K/uL (1.8-8.0); Basophils % 1.1 % (0-1.3); Eosinophils % 1.2 % (0-4.4); Hematocrit 31.7 % (39.6-49.0); Hemoglobin 10.8 g/dL (13.6-17.9); Lymphocytes % 40.7 % (15.3-44.8); MCH 27.4 pg (27.0-35.0); MCHC 34.1 g/dL (32.0-36.0); MCV 80.3 fL (80-100); Monocytes % 11.8 % (3.3-12.3); Neutrophils % 45.2 % (41.7-73.7); Nucleated Red Blood Cells % 0.1 % (0-0); Platelets 125 thou/uL (152-406); RBC Red Blood Cell Count 3.94 M/uL (4.33-5.43); Red Cell Distribution Width 17.1 % (12.1-15.2)
[2024-07-03 07:06] LABS: Albumin 2.4 g/dL (3.4-5.0); Albumin/Globulin Ratio 0.5 (1.1-1.8); Anion Gap 8.9 mEq/L (5.0-15.0); Bilirubin Total 0.8 mg/dL (0.2-1.0); Globulin 4.5 g/dL (2.3-3.5); Phosphorus 3.2 mg/dL (2.5-4.9); Potassium 3.9 mEq/L (3.5-5.1); Protein, Total 6.9 g/dL (6.4-8.2)
[2024-07-03] MEDS: POTASSIUM CL SA 10 MEQ TAB PO ONE (09:46)
--- NOTE | 2024-07-03 10:22 | P.PN ---
Date of Service: 07/03/24 Subjective Awake for nursing staff, sleeping for provider morning rounds Ammonia slightly elevated, will continue lactulose/rifaximin ROS 10 point ROS as noted above, otherwise negative Physical Exam General: Sleeping, Oriented x1, NAD HEENT: Atraumatic, Normocephalic Neck: Supple, 2+ carotid pulse no bruit, No Thyromegaly Respiratory: Clear BBS, Normal air movement, on RA Cardiovascular: Normal pulses, NSR, S1 S2 present Capillary refill: <2 Seconds Gastrointestinal: Soft on palpation, ND/NT, bowel sounds present Musculoskeletal: No clubbing, No swelling Integumentary: No rashes Neurological: Sleeping Vitals Reviewed Problem list Hepatic encephalopathy Cirrhosis status post TIPS Hyperammonemia Lactic acidosis Diabetes with hyperglycemia Dehydration Assessment and Plan Hepatic encephalopathy Cirrhosis status post TIPS Hyperammonemia Lactic acidosis -Diet started 07/02 -continue lactulose -Continue home medications including rifaximin -Monitor ammonia level, 155/180 -PPI IV twice daily -No signs of any GI bleed at this time -Toxicology negative Diabetes with hyperglycemia -IV hydration -Glucose monitoring with sliding scale insulin coverage Dehydration -IVF GI and DVT prophylaxis Advanced directive full code Discharge Plan: Home Plan to discharge in: 48 Hours <Donya Moody - Last Filed: 07/03/24 10:01> Patient seen and examined, plan of care discussed with Ms. Moody. Patient mental status has improved but ammonia level has not improved. Patient is awake and tolerating diet. Continue lactulose 45 g 4 times daily and titrate to 2-3 loose bowel movements per day. Continue rifaximin. Discontinue IV fluid. Insulin sliding scale for hyperglycemia. <laina bennett - Last Filed: 07/03/24 16:27>
[2024-07-04 07:04] LABS: Absolute Lymphocytes (CBC) 1.5 K/uL (0.7-4.9); Absolute Monocytes 0.5 K/uL (0.1-1.3); Absolute Neutrophil 2.8 K/uL (1.8-8.0); Basophils % 0.7 % (0-1.3); Eosinophils % 0.5 % (0-4.4); Hematocrit 31.6 % (39.6-49.0); Hemoglobin 10.5 g/dL (13.6-17.9); Lymphocytes % 31.1 % (15.3-44.8); MCH 26.9 pg (27.0-35.0); MCHC 33.4 g/dL (32.0-36.0); MCV 80.7 fL (80-100); MPV 7.5 fL (7.6-11.3); Monocytes % 10.4 % (3.3-12.3); Neutrophils % 57.3 % (41.7-73.7); Platelets 118 thou/uL (152-406); RBC Red Blood Cell Count 3.91 M/uL (4.33-5.43); Red Cell Distribution Width 17.3 % (12.1-15.2)
[2024-07-04 07:22] LABS: Albumin 2.4 g/dL (3.4-5.0); Albumin/Globulin Ratio 0.5 (1.1-1.8); Anion Gap 7.8 mEq/L (5.0-15.0); Bilirubin Total 0.7 mg/dL (0.2-1.0); Globulin 4.6 g/dL (2.3-3.5); Phosphorus 3.1 mg/dL (2.5-4.9); Potassium 3.8 mEq/L (3.5-5.1)
--- NOTE | 2024-07-04 08:48 | P.DS ---
Admission Date: 07/01/24 Discharge Date: 07/04/24 Disposition: ROUTINE DISCHARGE Discharge Condition: GOOD Reason for Admission: AMS Vital Signs/Physical Exam: Temp Pulse Resp BP Pulse Ox 97.9 F 78 18 142/63 H 96 07/04/24 04:00 07/04/24 08:37 07/04/24 04:00 07/04/24 08:37 07/04/24 04:00 Laboratory Data at Discharge: WBC 4.90 thou/uL (4.3-10.9) 07/04/24 06:53 Hgb 10.5 g/dL (13.6-17.9) L 07/04/24 06:53 Hct 31.6 % (39.6-49.0) L 07/04/24 06:53 Plt Count 118 thou/uL (152-406) L 07/04/24 06:53 PT 13.6 SECONDS (9.4-12.5) H 07/01/24 18:17 INR 1.22 07/01/24 18:17 APTT 42.2 SECONDS (24.3-36.9) H 07/01/24 18:17 Sodium 140 mEq/L (136-145) 07/04/24 06:53 Potassium 3.8 mEq/L (3.5-5.1) 07/04/24 06:53 BUN 13 mg/dL (7-18) 07/04/24 06:53 Creatinine 1.13 mg/dL (0.70-1.30) 07/04/24 06:53 Glucose 235 mg/dL (74-106) H 07/04/24 06:53 Phosphorus 3.1 mg/dL (2.5-4.9) 07/04/24 06:53 Magnesium 2.0 mg/dL (1.6-2.4) 07/04/24 06:53 Total Bilirubin 0.7 mg/dL (0.2-1.0) 07/04/24 06:53 AST 50 U/L (15-37) H 07/04/24 06:53 ALT 54 U/L (16-61) 07/04/24 06:53 Alkaline Phosphatase 103 U/L (45-117) 07/04/24 06:53 Home Medications: Atorvastatin Calcium [Lipitor*] 20 mg PO BEDTIME #30 tab 05/11/24 Aspirin Chewable [Aspirin Chewable*] 81 mg PO DAILY 06/13/24 Metformin ER [Glucophage ER*] 500 mg PO BID 06/13/24 Multivitamin/Iron/Folic Acid [Multivitamin with Iron Tablet] 1 each PO DAILY 06/13/24 lisinopriL [Lisinopril] 10 mg PO DAILY 06/13/24 Pantoprazole [Protonix Tab*] 40 mg PO DAILY 07/02/24 Lactulose [Cephulac*] 45 ml PO QID 30 Days #5400 ml 07/04/24 Rifaximin [Xifaxan] 550 mg PO BID #60 tab 07/04/24 New Medications: Lactulose [Cephulac*] 45 ml PO QID 30 Days #5400 ml Rifaximin [Xifaxan] 550 mg PO BID #60 tab Physician Discharge Instructions: 1. Please call and schedule a follow-up appointment with your PCP in 3-5 days - Please follow-up with your PCP for medication refills/adjustments -Continue to have your ammonia level checked 2. Continue low sodium diet 3. activity restrictions, fall precuations 4. Return to the ED if symptoms worsen Continue with medications as prescribed Rifaximin 550 mg twice daily lactulose 45 mg four times daily Diet: Low sodium Activity: Fall precautions Followup: Uzair Majano DO [Primary Care Provider] -
[2024-07-04] MEDS: POTASSIUM CL SA 10 MEQ TAB PO ONE (09:00)
[2024-07-04] MEDS ORDERED: LACTULOSE 20 GM/30 ML UCUP PO SCH (17:00)
[2024-07-04] MEDS: LACTULOSE 20 GM/30 ML UCUP PO SCH (17:00)
--- NOTE | 2024-07-04 17:41 | P.PN ---
Date of Service: 07/04/24 Subjective Ammonia improved conversing better no new complaints Family at bedside feel he is getting better but not ready to return home Attempting to be on the liver transplant list, ordered Hep C, transplant facility could not run the Hep C ROS 10 point ROS as noted above, otherwise negative Physical Exam General: Awake, alert, and Oriented x3, NAD HEENT: Atraumatic, Normocephalic Neck: Supple, 2+ carotid pulse no bruit, No Thyromegaly Respiratory: Clear BBS, Normal air movement, on RA Cardiovascular: Normal pulses, regular rate and rhythm, S1 S2 present Capillary refill: <2 Seconds Gastrointestinal: Soft and benign on palpation, ND/NT, bowel sounds present Musculoskeletal: No clubbing, No swelling Integumentary: No rashes Neurological: Sleeping Vitals Reviewed Problem list Hepatic encephalopathy Cirrhosis status post TIPS Hyperammonemia Lactic acidosis Lactic acidosis Diabetes with hyperglycemia Dehydration Assessment and Plan Hepatic encephalopathy Cirrhosis status post TIPS Hyperammonemia Lactic acidosis -Diet started 07/02 -continue lactulose -Continue home medications including rifaximin -Monitor ammonia level, 155/180/129 -PPI IV twice daily -No signs of any GI bleed at this time -Toxicology negative -MRI abd/pelvis in the AM -PT Diabetes with hyperglycemia -stopped IV hydration -Glucose monitoring with sliding scale insulin coverage -continue metformin Dehydration-resolved -stopped IVF GI and DVT prophylaxis Advanced directive full code Discharge Plan: Home Plan to discharge in: 48 Hours <Donya Moody - Last Filed: 07/04/24 17:32> Patient seen and examined. Plan of care discussed with Rachael Fransisco. Patient sister reports patient mental status is improved but not back to baseline. 2 bowel movements overnight recorded, no diarrhea recorded. Patient denies any abdominal pain. Plan: Continue lactulose 45 mg p.o. 4 times daily, titrate to 2-3 loose bowel movements per day. Continue rifaximin. Obtain MRI of the abdomen with and without contrast to evaluate liver cirrhosis stage. Patient completed treatment for hepatitis C. Obtain hepatitis C quantitative RNA. Patient with good oral intake. Discontinue IV NS given risk for edema. Monitor electrolytes and replace as needed <laina bennett - Last Filed: 07/04/24 19:38>
[2024-07-04] MEDS: METFORMIN ER 500 MG TAB PO SCH (17:44)
[2024-07-05 07:11] LABS: Absolute Basophils 0.1 K/uL (0-0.5); Absolute Eosinophils 0.1 K/uL (0-0.5); Absolute Lymphocytes (CBC) 1.8 K/uL (0.7-4.9); Absolute Monocytes 0.7 K/uL (0.1-1.3); Absolute Neutrophil 3.1 K/uL (1.8-8.0); Hematocrit 32.2 % (39.6-49.0); Hemoglobin 11.2 g/dL (13.6-17.9); Lymphocytes % 30.8 % (15.3-44.8); MCH 27.5 pg (27.0-35.0); MCHC 34.6 g/dL (32.0-36.0); MCV 79.5 fL (80-100); MPV 7.3 fL (7.6-11.3); Monocytes % 12.7 % (3.3-12.3); Neutrophils % 54.5 % (41.7-73.7); Nucleated Red Blood Cells % 0.1 % (0-0); Platelets 123 thou/uL (152-406); RBC Red Blood Cell Count 4.06 M/uL (4.33-5.43); Red Cell Distribution Width 17.1 % (12.1-15.2)
[2024-07-05 07:26] LABS: Albumin 2.5 g/dL (3.4-5.0); Albumin/Globulin Ratio 0.6 (1.1-1.8); Anion Gap 5.8 mEq/L (5.0-15.0); Globulin 4.4 g/dL (2.3-3.5); Potassium 3.8 mEq/L (3.5-5.1); Protein, Total 6.9 g/dL (6.4-8.2)
[2024-07-05] MEDS: POTASSIUM CL SA 10 MEQ TAB PO ONE (08:21)
[2024-07-05] MEDS: PANTOPRAZOLE 40MG TABLET PO SCH (08:22)
[2024-07-05 08:44] VITALS: O2SAT 96
[2024-07-05 12:34] VITALS: BP 136/63; TEMP 98.6
--- NOTE | 2024-07-05 13:03 | EKG ---
Test Date: 2024-07-01 Test Time: 18:18:06 [employer] Manager: ANGLE MEASUREMENT RESULTS: Intervals: Rate: 68 WV: 168 QRSD: 92 QT: 444 QTc: 472 [place]: P: 47 WV: 168 QRS: 15 T: 46 INTERPRETIVE STATEMENTS: Normal sinus rhythm Normal ECG Compared to ECG 06/12/2024 23:48:36 ST (T wave) deviation no longer present Electronically Signed On 07-05-24 12:53:06 CDT by Akbar Spann
--- NOTE | 2024-07-05 13:15 | RAD REPORT ---
EXAMINATION: MRI ABDOMEN WITHOUT AND WITH CONTRAST CLINICAL INDICATION: Male, 63 years old. Liver cirrhosis TECHNIQUE: Multiplanar, multi sequence imaging of the abdomen was performed before and after administ ration of gadolinium-based IV contrast. Unless otherwise specified, incidental findings do not require dedicated imaging follow-up. Unless otherwise specified, incidental findings do not require d edicated imaging follow-up. [id number]. COMPARISON: CT 05/27/2024 FINDINGS: LOWER CHEST: No pleural effusion or consolidation. LIVER: TIPS present. GALLBLADDER: No stones, wall thickening, or pericholecystic fluid. BILE DUCTS: No biliary ductal dilatation. PANCREAS: Normal T1 hyperintense signal. No mass, ductal dilation, or dann-pancreatic fluid. SPLEEN: Splenomegaly. The spleen measures 15.8 cm in CC dimension. ADRENALS: Normal; no mass. KIDNEYS AND URETERS: Normal size and contour. No hydronephrosis. VISUALIZED GASTROINTESTINAL TRACT: Normal course and caliber. Moderate colonic stool. LYMPH NODES: No lymphadenopathy. ABDOMINAL AORTA AND OTHER VESSELS: Normal caliber aorta. IVC patent. MUSCULOSKELETAL: No marrow signal abnormality. ADDITIONAL FINDINGS: None. IMPRESSION: No suspicious liver lesions identified. TIPS present. Splenomegaly.
--- NOTE | 2024-07-05 13:35 | P.PN ---
Date of Service: 07/05/24 Subjective Alert, confused, oriented x1 Pleasant feeding himself Ambulatory with PT ROS 10 point ROS as noted above, otherwise negative Physical Exam General: Awake, alert, and Oriented x3, NAD HEENT: Atraumatic, Normocephalic Neck: Supple, 2+ carotid pulse no bruit, No Thyromegaly Respiratory: Clear BBS, Normal air movement, on RA Cardiovascular: Normal pulses, regular rate and rhythm, S1 S2 present Capillary refill: <2 Seconds Gastrointestinal: Soft and benign on palpation, ND/NT, bowel sounds present Musculoskeletal: No clubbing, No swelling Integumentary: No rashes Neurological: No focal neurological deficits Vitals Reviewed Problem list Hepatic encephalopathy Cirrhosis status post TIPS Hyperammonemia Lactic acidosis Lactic acidosis Diabetes with hyperglycemia Dehydration Plan Hepatic encephalopathy Cirrhosis status post TIPS Hyperammonemia Lactic acidosis -continue lactulose -Continue home medications including rifaximin -PPI IV twice daily -No signs of any GI bleed at this time -Toxicology negative -MRI abd/pelvis shows cirrhosis status post TIPS, splenomegaly -PT-ambulate well with PT Diabetes with hyperglycemia -stopped IV hydration -Glucose monitoring with sliding scale insulin coverage -continue metformin Dehydration-resolved -stopped IVF GI and DVT prophylaxis Advanced directive full code Discharge Plan: Home Plan to discharge in: 48 Hours
--- NOTE | 2024-07-05 16:10 | P.DS ---
Admission Date: 07/01/24 Discharge Date: 07/05/24 Disposition: ROUTINE DISCHARGE Discharge Condition: GOOD Reason for Admission: AMS Brief History of Present Illness: 63-year-old male with past medical history of cirrhosis liver, diabetes, hypertension, CVA, carotid artery stenosis status post endarterectomy, status post TIPS procedure brought to ER with altered mental status. Patient is a poor historian and could not offer much history due to altered mental status. Denies any chest pain or shortness of breath. No nausea vomiting or diarrhea. Unsure patient has been taking lactulose or not. Patient was assessed in the ER and was admitted for hepatic encephalopathy as his ammonia level was high . Hospital Course: Problem list Hepatic encephalopathy Cirrhosis status post TIPS Hyperammonemia Lactic acidosis Lactic acidosis Diabetes with hyperglycemia Dehydration Patient was admitted to the hospital for hepatic encephalopathy. He was treated with lactulose, rifaximin And had improvement in his mental status. During his hospitalization an MRI was obtained, results below. Testing for hepatitis C was also obtained and the results are currently pending. Patient will need to continue taking lactulose as prescribed, he is currently around his baseline mental status oriented x 1-2, pleasant and conversive but a bit confused. He currently stays with his family who care for him [id number]. Case management is attempting to set up home health with SN/OT/PT. This process will be continued as patient is discharged. MRI FINDINGS LOWER CHEST: No pleural effusion or consolidation. LIVER: TIPS present. GALLBLADDER: No stones, wall thickening, or pericholecystic fluid. BILE DUCTS: No biliary ductal dilatation. PANCREAS: Normal T1 hyperintense signal. No mass, ductal dilation, or dann- pancreatic fluid. SPLEEN: Splenomegaly. The spleen measures 15.8 cm in CC dimension. ADRENALS: Normal; no mass. KIDNEYS AND URETERS: Normal size and contour. No hydronephrosis. VISUALIZED GASTROINTESTINAL TRACT: Normal course and caliber. Moderate colonic stool. LYMPH NODES: No lymphadenopathy. ABDOMINAL AORTA AND OTHER VESSELS: Normal caliber aorta. IVC patent. MUSCULOSKELETAL: No marrow signal abnormality. ADDITIONAL FINDINGS: None. IMPRESSION: No suspicious liver lesions identified. TIPS present. Splenomegaly. 1. Please call and schedule a follow-up appointment with your PCP in 3-5 days - Please follow-up with your PCP for medication refills/adjustments -Continue to have your ammonia level checked 2. Continue low sodium diet 3. activity restrictions, fall precautions 4. Return to the ED if symptoms worsen Continue with medications as prescribed Rifaximin 550 mg twice daily lactulose 45 mg four times daily Physical Exam General: Awake, alert, and Oriented x3, NAD HEENT: Atraumatic, Normocephalic Neck: Supple, 2+ carotid pulse no bruit, No Thyromegaly Respiratory: Clear BBS, Normal air movement, on RA Cardiovascular: Normal pulses, regular rate and rhythm, S1 S2 present Capillary refill: <2 Seconds Gastrointestinal: Soft and benign on palpation, ND/NT, bowel sounds present Musculoskeletal: No clubbing, No swelling Integumentary: No rashes Neurological: No focal neurological deficits Vital Signs/Physical Exam: Temp Pulse Resp BP Pulse Ox 98.6 F 80 16 136/63 98 07/05/24 12:00 07/05/24 12:00 07/05/24 12:00 07/05/24 12:00 07/05/24 12:00 Laboratory Data at Discharge: WBC 5.70 thou/uL (4.3-10.9) 07/05/24 06:56 Hgb 11.2 g/dL (13.6-17.9) L 07/05/24 06:56 Hct 32.2 % (39.6-49.0) L 07/05/24 06:56 Plt Count 123 thou/uL (152-406) L 07/05/24 06:56 PT 13.6 SECONDS (9.4-12.5) H 07/01/24 18:17 INR 1.22 07/01/24 18:17 APTT 42.2 SECONDS (24.3-36.9) H 07/01/24 18:17 Sodium 136 mEq/L (136-145) 07/05/24 06:56 Potassium 3.8 mEq/L (3.5-5.1) 07/05/24 06:56 BUN 11 mg/dL (7-18) 07/05/24 06:56 Creatinine 0.94 mg/dL (0.70-1.30) 07/05/24 06:56 Glucose 176 mg/dL (74-106) H 07/05/24 06:56 Phosphorus 3.1 mg/dL (2.5-4.9) 07/04/24 06:53 Magnesium 2.0 mg/dL (1.6-2.4) 07/04/24 06:53 Total Bilirubin 1.0 mg/dL (0.2-1.0) 07/05/24 06:56 AST 44 U/L (15-37) H 07/05/24 06:56 ALT 52 U/L (16-61) 07/05/24 06:56 Alkaline Phosphatase 105 U/L (45-117) 07/05/24 06:56 Home Medications: Atorvastatin Calcium [Lipitor*] 20 mg PO BEDTIME #30 tab 05/11/24 Aspirin Chewable [Aspirin Chewable*] 81 mg PO DAILY 06/13/24 Metformin ER [Glucophage ER*] 500 mg PO BID 06/13/24 Multivitamin/Iron/Folic Acid [Multivitamin with Iron Tablet] 1 each PO DAILY 06/13/24 lisinopriL [Lisinopril] 10 mg PO DAILY 06/13/24 Pantoprazole [Protonix Tab*] 40 mg PO DAILY 07/02/24 Lactulose [Cephulac*] 45 ml PO QID 30 Days #5400 ml 07/04/24 Rifaximin [Xifaxan] 550 mg PO BID #60 tab 07/04/24 New Medications: Lactulose [Cephulac*] 45 ml PO QID 30 Days #5400 ml Rifaximin [Xifaxan] 550 mg PO BID #60 tab Physician Discharge Instructions: Patient was admitted to the hospital for hepatic encephalopathy. He was treated with lactulose, rifaximin And had improvement in his mental status. During his hospitalization an MRI was obtained, results below. Testing for hepatitis C was also obtained and the results are currently pending. Patient will need to continue taking lactulose as prescribed, he is currently around his baseline mental status oriented x 1-2, pleasant and conversive but a bit confused. He currently stays with his family who care for him [id number]. Case management is attempting to set up home health with SN/OT/PT. This process will be continued as patient is discharged. MRI FINDINGS LOWER CHEST: No pleural effusion or consolidation. LIVER: TIPS present. GALLBLADDER: No stones, wall thickening, or pericholecystic fluid. BILE DUCTS: No biliary ductal dilatation. PANCREAS: Normal T1 hyperintense signal. No mass, ductal dilation, or dann- pancreatic fluid. SPLEEN: Splenomegaly. The spleen measures 15.8 cm in CC dimension. ADRENALS: Normal; no mass. KIDNEYS AND URETERS: Normal size and contour. No hydronephrosis. VISUALIZED GASTROINTESTINAL TRACT: Normal course and caliber. Moderate colonic stool. LYMPH NODES: No lymphadenopathy. ABDOMINAL AORTA AND OTHER VESSELS: Normal caliber aorta. IVC patent. MUSCULOSKELETAL: No marrow signal abnormality. ADDITIONAL FINDINGS: None. IMPRESSION: No suspicious liver lesions identified. TIPS present. Splenomegaly. 1. Please call and schedule a follow-up appointment with your PCP in 3-5 days - Please follow-up with your PCP for medication refills/adjustments -Continue to have your ammonia level checked 2. Continue low sodium diet 3. activity restrictions, fall precautions 4. Return to the ED if symptoms worsen Continue with medications as prescribed Rifaximin 550 mg twice daily lactulose 45 mg four times daily Diet: Low sodium Activity: Fall precautions Followup: Uzair Majano DO [Primary Care Provider] - 1-2 Weeks Time spent managing pt's care (in minutes): 45
[2024-07-07 16:49] LABS: Hepatitis C RNA (PCR) <15 IU/mL; Hepatitis C Virus RNA (PCR)log <1.18 log IU/mL
== END 2024-07-05 16:34 | disposition home health service (06) | DRG 442 ==
LOC: ER 16:55 → 4TH 22:21
PROVIDERS: ADMIT Family Medicine; ATTEND Hospitalist
DX: K76.82 Hepatic encephalopathy (principal); E72.20 Disorder of urea cycle metabolism, unspecified; E87.20 Acidosis, unspecified; I10 Essential (primary) hypertension; E86.0 Dehydration; E11.65 Type 2 diabetes mellitus with hyperglycemia; E78.00 Pure hypercholesterolemia, unspecified; K74.60 Unspecified cirrhosis of liver; Z79.82 Long term (current) use of aspirin; Z79.84 Long term (current) use of oral hypoglycemic drugs; Z86.73 Personal history of transient ischemic attack (TIA), and cerebral infarction without residual deficits; Z79.899 Other long term (current) drug therapy; Z87.891 Personal history of nicotine dependence
CPT/HCPCS: 36415; 70450; 71045; 74183; 80053; 80307; 81001; 82077; 82140; 82947; 83605; 83735; 84100; 84484; 85025; 85610; 85730; 87040; 87520; 87522; 93005; 94760; 96360; 96361; 97116; 97161; 99285; A9577; J3411; J7030

== ENCOUNTER 2024-07-10 17:09 | Inpatient (IN) | payer OTHER ==
[2024-07-10 19:34] LABS: Absolute Lymphocytes (CBC) 1.3 K/uL (0.7-4.9); Absolute Monocytes 0.4 K/uL (0.1-1.3); Absolute Neutrophil 2.3 K/uL (1.8-8.0); Basophils % 0.8 % (0-1.3); Eosinophils % 0.3 % (0-4.4); Hematocrit 34.3 % (39.6-49.0); Hemoglobin 11.4 g/dL (13.6-17.9); Lymphocytes % 31.8 % (15.3-44.8); MCH 26.9 pg (27.0-35.0); MCHC 33.2 g/dL (32.0-36.0); MCV 81.1 fL (80-100); MPV 8.2 fL (7.6-11.3); Monocytes % 10.8 % (3.3-12.3); Neutrophils % 56.3 % (41.7-73.7); Platelets 104 thou/uL (152-406); RBC Red Blood Cell Count 4.22 M/uL (4.33-5.43); Red Cell Distribution Width 17.6 % (12.1-15.2)
[2024-07-10 19:47] LABS: Specific Gravity 1.018 (1.005-1.030); Sqamous Epithelial None Seen /HPF (None Seen); Urine Bacteria <20 /HPF (<20); Urine Bilirubin NEGATIVE (Negative); Urine Blood 3+ (Negative); Urine Clarity Extremely Turbid (Clear); Urine Color Yellow (Yellow); Urine Culture Reflex Order NOT NEEDED; Urine Glucose 2+ (Negative); Urine Ketones NEGATIVE (Negative); Urine Microscopic Reflex YN ORDER UMIC; Urine Nitrite NEGATIVE (Negative); Urine Protein NEGATIVE (Negative); Urine RBC >50 /HPF (None Seen); Urine Urobilinogen 1+ (Normal); Urine WBC <5 /HPF (<5); Urine Yeast (Budding) Few /HPF (None Seen)
[2024-07-10 19:50] LABS: Albumin 2.6 g/dL (3.4-5.0); Albumin/Globulin Ratio 0.6 (1.1-1.8); Bilirubin Total 0.8 mg/dL (0.2-1.0); Globulin 4.6 g/dL (2.3-3.5); Protein, Total 7.2 g/dL (6.4-8.2)
--- NOTE | 2024-07-10 20:44 | EDPHYS ---
Physician Documentation [facility] Name: Chalo Little Age: 63 yrs Sex: Male : 1960 Arrival Date: 07/10/2024 Time: 17:09 Bed 15 Private MD: ED Physician Len Sparks HPI: 07/10 19:04 This 63 yrs old Male presents to ER via Wheelchair with complaints of Altered, bo1 Difficulty Swallowing. 19:04 The patient presents with Pt's sister pt was watching TV - [employer] and was "drooling" at bo1 the mouth. Onset: The symptoms/episode began/occurred gradually, today. Severity of symptoms: At their worst the symptoms were moderate, Report and hx from the pt's sister. Associated signs and symptoms: Pertinent positives: Poor appetite recently. The patient has experienced similar episodes in the past. Recent hospitalization for elevated ammonia. Pt was noticeably "weaker" and "unable to stand" today. He was seen on Thursday by home health and was ambulatory w/o issues then. 19:12 The patient has been recently seen by a physician: Pt's PCP and told to increase his bo1 protein intake (per the sister - primary caregiver). Historical: - Allergies: 17:27 No Known Allergies; ap3 - PMHx: 17:27 Alcoholism; cirrhosis of liver; CVA; diabetes mellitus; HEP C (Unknown); ap3 Hypercholesterolemia; Hypertensive disorder; Variceal bleeding; - PSHx: 17:27 right carotid blockage sx; TIPS; ap3 - Immunization history:: Client reports having NOT received the Covid vaccine. Flu vaccine is not up to date. - Infectious Disease History:: Denies. - Social history:: Smoking status: unknown. ROS: 19:08 Constitutional: Negative for fever, chills, and weight loss bo1 19:08 Eyes: Negative for icterus, 19:08 ENT: Positive for difficulty handling secretions, difficulty swallowing, 19:08 Cardiovascular: Negative for acute changes, 19:08 Respiratory: Negative for cough, shortness of breath, acute changes, 19:08 Abdomen/GI: Negative for nausea and vomiting, 19:08 : Positive for Cloudy urine in the morning, 19:08 Skin: Negative for lesions, rash, 19:08 Neuro: Positive for altered mental status, weakness, 19:08 All other systems are negative, Exam: 19:12 Constitutional: This is a well developed, well nourished patient who is confused and bo1 in mild acute distress. 19:12 Constitutional: The patient appears non-toxic, well developed, lethargic, 19:12 Head/face: No evidence of drooling or asymmetry to the face. 19:12 Eyes: Conjunctiva: normal, Sclera: no acute changes, 19:12 Chest/axilla: Inspection: no acute changes, 19:12 Cardiovascular: Rate: normal, Rhythm: regular, 19:12 Respiratory: the patient does not display signs of respiratory distress, Respirations: normal, Breath sounds: decreased breath sounds, 19:12 Abdomen/GI: Inspection: abdomen appears normal, distension, is not seen, 19:12 Skin: no rash present. 19:12 Neuro: Mentation: confused, Memory: unable to test, Cranial nerves: unable to test, Cerebellar function: unable to test, Motor: unable to test, Sensation: unable to test, Gait: unable to assess, not tested. needs assistance, Weakness, unable to follow commands, Vital Signs: 17:24 BP 160 / 84; Pulse 71; Resp 14; Pulse Ox 99% on R/A; db 18:44 BP 147 / 77; Pulse 70; Resp 16; Pulse Ox 98% on R/A; db 19:53 BP 136 / 75; Pulse 66; Resp 18; Pulse Ox 100% on R/A; kj2 21:14 BP 132 / 76; Pulse 65; Resp 18; Temp 98; Pulse Ox 100% on R/A; kj2 MDM: 18:14 Medical Screening Exam initiated bo1 19:32 Differential diagnosis: Hepatic encephalopathy. Data reviewed: vital signs, old medical bo1 records, ER - 07/01/2024. Management of patient was discussed with the following: Pt's sister. External Records Reviewed: Outpatient record: Dr Pao Connelly MD - transplant MD with [facility]. 20:42 Counseling: I had a detailed discussion with the patient and/or guardian regarding the rn historical points, exam findings, and any diagnostic results supporting the discharge/admit diagnosis, lab results, the need for further work-up and treatment in the hospital. Response to treatment: There is no appreciated change of the patient's symptoms at this time. 07/10 18:14 Order name: CBC with Diff; Complete Time: 19:52 bo 07/10 18:14 Order name: CMP; Complete Time: 19:52 bo 07/10 18:14 Order name: Urinalysis w/ reflexes; Complete Time: 19:52 bo1 07/10 18:14 Order name: AMMONIA; Complete Time: 19:52 bo 07/10 20:51 Order name: Creatine Phosphokinase [facility] 07/10 20:51 Order name: Magnesium [facility] 07/10 20:51 Order name: Phosphorus [facility] 07/10 20:51 Order name: T4 Free [facility] 07/10 20:51 Order name: Thyroid Stimulating Hormone [facility] 07/10 20:51 Order name: CBC with Automated Diff [facility] 07/10 20:51 Order name: CBC with Automated Diff [facility] 07/10 20:51 Order name: Comprehensive Metabolic Panel [facility] 07/10 20:51 Order name: Comprehensive Metabolic Panel [facility] 07/10 19:41 Order name: CT Head Brain wo Cont; Complete Time: 21:02 rn 07/10 18:14 Order name: IV Saline Lock; Complete Time: 19:05 [facility] 07/10 18:14 Order name: Labs collected and sent; Complete Time: 19:05 [facility] 07/10 18:59 Order name: Misc. Order: redraw labs; Complete Time: 19:03 sp Administered Medications: 21:13 Not Given (DIFFICULTY SWALLOWING, MED UNABLE TO TAKE ORALLY): [id number] grams 45 ml kj2 PO once Disposition Summary: 07/10/24 20:43 Hospitalization Ordered Notes: Hospitalization Status: Inpatient Admission rn Provider: Prince Jazmin [facility]n [facility] Condition: Stable rn Problem: an acute exacerbation rn Symptoms: are unchanged rn Bed/Room Type: Standard rn Room Assignment: 210(07/10/24 21:25) sp Diagnosis - Metabolic encephalopathy rn - Altered mental status, unspecified rn - Dehydration rn - Muscle weakness (generalized) rn Forms: - Medication Reconciliation Form rn - SBAR form rn - Leadership Thank You Letter rn Signatures: Dispatcher [facility] EDOH Yadira Babcock Roman, MD MD rn Prokisch, Amanda RN RN ap3 Kurtis Peralta MD MD bo1 Marisela Zamora RN RN kj2 Corrections: (The following items were deleted from the chart) 18:15 18:15 CBC+H.LAB.BRZ ordered. EDMS EDMS 18:15 18:15 COMPREHENSIVE METABOLIC PANEL+C.LAB.BRZ ordered. EDMS EDMS 18:15 18:15 Urinalysis+U.LAB.BRZ ordered. EDMS EDMS 18:15 18:15 AMMONIA+C.LAB.BRZ ordered. EDMS EDMS 20:59 20:43 rn sp 21:25 20:59 205 sp sp
--- NOTE | 2024-07-10 20:44 | ER ---
Nurse's Notes [facility] Name: Chalo Little Age: 63 yrs Sex: Male : 1960 Arrival Date: 07/10/2024 Time: 17:09 Bed 15 Private MD: Diagnosis: Metabolic encephalopathy;Altered mental status, unspecified;Dehydration;Muscle weakness (generalized) Presentation: 07/10 17:25 Chief complaint: Spouse and/or significant other states: the patient started drooling, ap3 having difficulty holding items, and was having an increase in altered mental status that started sometime this morning. Coronavirus screen: At this time, the client does not indicate any symptoms associated with coronavirus-19. Ebola Screen: No symptoms or risks identified at this time. Risk Assessment: Do you want to hurt yourself or someone else? Patient reports no desire to harm self or others. Onset of symptoms was July 10, 2024. 17:25 Method Of Arrival: Wheelchair ap3 17:44 Initial Sepsis Screen: Does the patient meet any 2 criteria? No. Patient's initial hb sepsis screen is negative. Does the patient have a suspected source of infection? No. Patient's initial sepsis screen is negative. 17:44 Acuity: ASHLEY 3 hb Triage Assessment: 17:27 General: Appears in no apparent distress. Behavior is calm. Pain: Unable to use pain ap3 scale. Neuro: Level of Consciousness is awake, Oriented to person. Neuro: Level of Consciousness is obeys commands, Oriented to. Cardiovascular: Patient's skin is warm and dry. Respiratory: Airway is patent Respiratory effort is even, unlabored, Respiratory pattern is regular, symmetrical. Historical: - Allergies: 17:27 No Known Allergies; ap3 - PMHx: 17:27 Alcoholism; cirrhosis of liver; CVA; diabetes mellitus; HEP C (Unknown); ap3 Hypercholesterolemia; Hypertensive disorder; Variceal bleeding; - PSHx: 17:27 right carotid blockage sx; TIPS; ap3 - Immunization history:: Client reports having NOT received the Covid vaccine. Flu vaccine is not up to date. - Infectious Disease History:: Denies. - Social history:: Smoking status: unknown. Screenin:29 Abuse screen: Denies threats or abuse. Nutritional screening: No deficits noted. ap3 Tuberculosis screening: No symptoms or risk factors identified. 17:29 [facility] ED Fall Risk Assessment (Adult) History of falling in the last 3 months, ap3 including since admission Yes- fall prone (multiple falls) (3 pts) Confusion or Disorientation Yes (5 pts) Intoxicated or Sedated No (0 pts) Impaired Gait Yes (1 pt) Mobility Assist Device Used Yes (1 pt) Altered Elimination Yes (1 pt) Score/Fall Risk Level 3 or more points = High Risk Oriented to surroundings, Maintained a safe environment, Educated pt \T\ family on fall prevention, incl call for assistance when getting out of bed, Assessed \T\ reinforced patient's understanding of fall precautions, Provided non-skid footwear, Hourly rounding (assess needs \T\ fall precautionary measures) done, Used ambulatory aids as needed (educated on \T\ assisted with), Used gait belt as appropriate Implemented a Fall Risk Plan of Care, Apply high fall risk patient identification: yellow non skid footwear/ fall signage, Remained w/in arm's length of patient and in sight while toileting, Offered frequent toileting (1:1 observation), Remained with patient while ambulating, Utilized family, sitter, or virtual eeg technologist as indicated. Assessment: 17:35 Reassessment: Patient appears in no apparent distress at this time. Patient and/or db family updated on plan of care and expected duration. Pain level reassessed. General: Appears in no apparent distress. comfortable, Behavior is. Neuro: Level of Consciousness is confused, Oriented to none. Respiratory: Airway is patent Respiratory effort is even, unlabored, Respiratory pattern is regular, symmetrical. 18:30 Reassessment: Patient appears in no apparent distress at this time. Patient and/or db family updated on plan of care and expected duration. Pain level reassessed. Neuro: Level of Consciousness is awake, alert, obeys commands, confused. 19:00 Reassessment: Patient appears in no apparent distress at this time. Patient and/or db family updated on plan of care and expected duration. Pain level reassessed. PURWICK PUT IN PLACE AFTER STRAIGHT CATH. 19:05 Reassessment: Patient appears in no apparent distress at this time. Patient and/or kj2 family updated on plan of care and expected duration. Pain level reassessed. Patient is alert, oriented x 3, equal unlabored respirations, skin warm/dry/pink. 21:13 Reassessment: HOSPITALIST NOTIFIED PATIENT IS UNABLE TO TAKE BY MOUTH MEDS. kj2 21:14 Reassessment: Patient appears in no apparent distress at this time. Patient and/or kj2 family updated on plan of care and expected duration. Pain level reassessed. Patient is alert, oriented x 3, equal unlabored respirations, skin warm/dry/pink. Vital Signs: 17:24 BP 160 / 84; Pulse 71; Resp 14; Pulse Ox 99% on R/A; db 18:44 BP 147 / 77; Pulse 70; Resp 16; Pulse Ox 98% on R/A; db 19:53 BP 136 / 75; Pulse 66; Resp 18; Pulse Ox 100% on R/A; kj2 21:14 BP 132 / 76; Pulse 65; Resp 18; Temp 98; Pulse Ox 100% on R/A; kj2 ED Course: 17:11 Patient arrived in ED. ra3 17:20 Ronda Novak, HELENA is Primary Nurse. db 17:29 Arm band placed on right wrist. ap3 17:42 Hema Nicolas, NETWORK SPECIALIST-C is PHCP. dr5 17:42 Kurtis Peralta MD is Attending Physician. dr5 17:45 Triage completed. hb 18:14 Kurtis Peralta MD is Attending Physician. bo1 18:30 Placed in gown. Bed in low position. Call light in reach. Side rails up X2. Client db placed on continuous cardiac and pulse oximetry monitoring. NIBP monitoring applied. oil pit attendant on. Pulse ox on. NIBP on. Warm blanket given. Pillow given. 18:35 Missed attempt(s): 20 gauge in right antecubital area. Bleeding controlled, band aid db applied, catheter tip intact. 18:40 Missed attempt(s): 22 gauge in right wrist. Bleeding controlled, band aid applied, db catheter tip intact. 19:00 Lab(s) recollected, by me, sent to lab. Urine collected: straight cath specimen, clear, db Amount Returned: 200mL. Straight cath inserted, using sterile technique, 14 Fr. Specimen obtained. Returned clear yellow urine. Patient tolerated well. Inserted saline lock: 20 gauge in left forearm, using aseptic technique. Blood collected. Flushed with 10 mL NS. 19:06 Report given to HELENA BENITEZ. db 19:15 Provided Education on: call light. kj2 19:15 No provider procedures requiring assistance completed. Patient admitted, IV remains in kj2 place. 19:35 Attending Physician role handed off by Kurtis Peralta MD rn 19:35 Len Sparks MD is Attending Physician. rn 19:37 Marisela Zamora, HELENA is Primary Nurse. kj2 20:42 Prince Wu MD is Hospitalizing Provider. rn 20:51 CT Head Brain wo Cont In Process Unspecified. EDMS Administered Medications: 21:13 Not Given (DIFFICULTY SWALLOWING, MED UNABLE TO TAKE ORALLY): [id number] grams 45 ml kj2 PO once Medication: 19:04 VIS not applicable for this client. db Outcome: 19:15 Condition: stable kj2 19:15 Instructed on the need for admit, 20:43 Decision to Hospitalize by Provider. rn 21:45 Admitted to Med/surg accompanied by tech, kj2 21:47 Patient left the ED. kj2 Signatures: Dispatcher [employer] EDMS Len Sparks MD MD rn Baxter, Heather RN RN Mary Lou Palbo RN RN ap3 Ronda Novak RN RN db Nona Altman ra3 Kurtis Peralta MD MD bo1 Marisela Zamora RN RN kj2 Hema Nicolas, OBDULIA-C NETWORK SPECIALIST-Cdr5 Corrections: (The following items were deleted from the chart) 19:49 19:37 BP 125 / 79; Pulse 78bpm; Resp 18bpm; Pulse Ox 100% RA; kj2 kj2
[2024-07-10] MEDS ORDERED: ONDANSETRON 4 MG/2 ML VIAL IV PRN (20:47)
--- NOTE | 2024-07-10 20:54 | RAD REPORT ---
EXAM: CT brain without contrast HISTORY: AMS COMPARISON: 07/01/2024 TECHNIQUE: Multiple contiguous axial images were obtained and a CT of the brain without contrast. Sag ittal and coronal reformats were performed. One or more of the following dose reduction techniques were used: Automated exposure control, adjust ment of the mA and/or kV according to patient size, and/or iterative reconstruction. FINDINGS: No evidence of hydrocephalus, intracranial hemorrhage, or extra-axial fluid collection. The brain is normal in morphology. Mild gliosis is seen posterior right frontal lobe. No evidence of midline shift or areas of brain edema. The calvarium is intact. The visualized paranasal sinuses and mastoid air cells are essentially clear . IMPRESSION: No evidence of acute intracranial abnormality.
[2024-07-10] MEDS: PANTOPRAZOLE 40 MG INJ IVP SCH (21:09)
[2024-07-10] MEDS: LACTULOSE 20 GM/30 ML UCUP PO SCH (21:09)
[2024-07-10] MEDS ORDERED: SODIUM CHLORIDE 0.9% 10ML INJ IV PRN (21:09)
--- NOTE | 2024-07-10 21:16 | P.HP ---
Certification for Inpatient Patient admitted to: Inpatient With expected LOS: >2 Midnights Practitioner: I am a practitioner with admitting privileges, knowledge of patient current condition, hospital course, and medical plan of care. Services: Services provided to patient in accordance with Admission requirements found in Title 42 Section 412.3 of the Code of Federal Regulations Patient History Date of Service: 07/10/24 Reason for admission: hepatic encephalopathy History of Present Illness: Patient is a 63-year-old male with a past medical history of decompensated cirrhosis status post TIPS procedure, hypertension, type 2 diabetes mellitus and CVA. He also has a history of coronary stent stenosis status post CEA. He presented to the ER accompanied by for evaluation of altered mental status. Patient was last seen normal yesterday evening. Then he started displaying abnormal behavior. He was able to be given some melatonin and went to bed. This morning, patient was unable to wake up by himself. had to vigorously wake him up. His mental status was below baseline. He had a small bowel movement then a large 1 a few hours later. No evidence of blood. Patient is on rifaximin at home. Usually does well when he is having 3 bowel movement per day. states that lately, his bowel movement and urine output have decreased in frequency and quantity. Patient arrived in the ER hemodynamically stable. He was unable to complete CT head as he was constantly moving. Basic labs are significant for mild pancytopenia. His ammonia level was 167. He is being admitted for acute hepatic encephalopathy. His urine analysis is unremarkable. Allergies No Known Allergies Allergy (Verified 06/13/24 03:39) Home Medications: Atorvastatin Calcium [Lipitor*] 20 mg PO BEDTIME #30 tab 05/11/24 Aspirin Chewable [Aspirin Chewable*] 81 mg PO DAILY 06/13/24 Metformin ER [Glucophage ER*] 500 mg PO BID 06/13/24 Multivitamin/Iron/Folic Acid [Multivitamin with Iron Tablet] 1 each PO DAILY 06/13/24 lisinopriL [Lisinopril] 10 mg PO DAILY 06/13/24 Pantoprazole [Protonix Tab*] 40 mg PO DAILY 07/02/24 Lactulose [Cephulac*] 45 ml PO QID 30 Days #5400 ml 07/04/24 Rifaximin [Xifaxan] 550 mg PO BID #60 tab 07/04/24 - Past Medical/Surgical History Diabetic: Yes -: Hyperlipidemia -: CVA December 2023 -: Diabetes mellitusNIDDM -: Former smoker -: Former alcohol abuse -: Hep C -: Cirrhosis -: Tips procedure -: Right carotid endarterectomy Psychosocial/ Personal History: Single, lives with his sister. Status post TIPS - Family History Mother -: Diabetes Sister -: Diabetes, Other (see notes) Notes: MS - Social History Alcohol use: No CD- Drugs: No Caffeine use: No Physical Examination - Physical Exam General: Confused HEENT: Atraumatic, Normocephalic, EOMI, Sclerae nonicteric Respiratory: Clear to auscultation bilaterally, Normal air movement Cardiovascular: No edema, Normal pulses, Regular rate/rhythm, Normal S1 S2 Gastrointestinal: Distended - Studies Laboratory Data (last 24 hrs) 07/10/24 07/10/24 19:00 19:00 WBC 4.10 L Hgb 11.4 L Hct 34.3 L Plt Count 104 L Sodium 136 Potassium 4.0 BUN 9 Creatinine 1.03 Glucose 228 H Total Bilirubin 0.8 AST 99 H ALT 91 H Alkaline Phosphatase 113 Assessment and Plan - Problems (Diagnosis) (1) Decompensated cirrhosis Current Visit: Yes Status: Acute (2) Hepatic encephalopathy Current Visit: Yes Status: Acute (3) HTN (hypertension) Current Visit: Yes Status: Acute (4) CVA (cerebral vascular accident) Current Visit: Yes Status: Acute (5) Type II diabetes mellitus Current Visit: Yes Status: Acute - Plan Assessment Patient is a 63-year-old male with a past medical history of decompensated cirrhosis and portal hypertension status post TIPS procedure, CVA, carotid artery stenosis status post CEA. He is being admitted for hepatic encephalopathy after he presented with altered mental status. Initial ammonia 167. Hepatic encephalopathy Decompensated cirrhosis Portal hypertension status post TIPS procedure Pancytopenia Carotid artery disease status post CEA Hypertension Type 2 diabetes mellitus Plan: Admit inpatient with telemetry Will start patient on scheduled lactulose and rifaximin. Lactulose enema nonformulary IV levofloxacin for SBP prophylaxis Will obtain an abdominal ultrasound for TIPS and ascites evaluation IV PPI for GI prophylaxis Patient is full code Insulin sliding scale SCD for DVT ppx - Advance Directives Does patient have a Living Will: No Does patient have a Durable POA for Healthcare: Yes
[2024-07-10] MEDS ORDERED: GLUCAGON 1 MG/VIAL IM PRN (21:20)
[2024-07-10] MEDS ORDERED: D10W 125 ML IV PRN (21:20)
--- NOTE | 2024-07-10 21:50 | RAD REPORT ---
EXAM: Limited abdominal ultrasound. CLINICAL HISTORY: evaluate for ascictes COMPARISON: None. FINDINGS: No measurable ascites is seen.
[2024-07-11 01:49] LABS: Phosphorus 3.6 mg/dL (2.5-4.9); Thyroid Stimulating Hormone 1.31 uIU/mL (0.358-3.740)
[2024-07-11] MEDS: NA CHLORIDE 0.9% 1,000 ML IV SCH (03:39)
[2024-07-11] MEDS: Levofloxacin 750mg IV 750 MG/150 ML BAG IV SCH (03:48)
[2024-07-11 06:46] LABS: Absolute Lymphocytes (CBC) 1.2 K/uL (0.7-4.9); Absolute Monocytes 0.4 K/uL (0.1-1.3); Absolute Neutrophil 1.7 K/uL (1.8-8.0); Basophils % 1.3 % (0-1.3); Eosinophils % 0.4 % (0-4.4); Hematocrit 32.4 % (39.6-49.0); Hemoglobin 10.8 g/dL (13.6-17.9); Lymphocytes % 36.3 % (15.3-44.8); MCH 26.9 pg (27.0-35.0); MCHC 33.3 g/dL (32.0-36.0); MCV 80.9 fL (80-100); MPV 8.1 fL (7.6-11.3); Monocytes % 12.3 % (3.3-12.3); Neutrophils % 49.7 % (41.7-73.7); Nucleated Red Blood Cells % 0.1 % (0-0); Platelets 99 thou/uL (152-406); RBC Red Blood Cell Count 4.01 M/uL (4.33-5.43); Red Cell Distribution Width 17.5 % (12.1-15.2)
[2024-07-11 06:53] LABS: Albumin 2.4 g/dL (3.4-5.0); Albumin/Globulin Ratio 0.5 (1.1-1.8); Anion Gap 10.8 mEq/L (5.0-15.0); Bilirubin Total 0.7 mg/dL (0.2-1.0); Globulin 4.5 g/dL (2.3-3.5); Potassium 3.8 mEq/L (3.5-5.1); Protein, Total 6.9 g/dL (6.4-8.2)
[2024-07-11] MEDS: INSULIN REGULAR (HUMAN) 100 UNIT/ML SQ SCH (07:30)
[2024-07-11 08:09] LABS: White Blood Cell Scan OK (OK)
[2024-07-11 08:10] LABS: Anisocytosis 1+; Blood Morphology Comment NOTED (NOT SEEN); Microcytosis 1+; Platelet Estimate DECR
[2024-07-11] MEDS: LACTULOSE 20 GM/30 ML UCUP PO SCH (09:17)
[2024-07-11] MEDS: Rifaximin 550 MG Tab PO SCH (09:18)
--- NOTE | 2024-07-11 09:33 | P.PN ---
Subjective Date of Service: 07/11/24 Chief Complaint: hepatic encephalopathy Patient is 63 years of age with a history of cirrhosis s/p TIPS admitted with altered mental status currently unresponsive delirious nonverbal was on rifaximin at home Review of Systems is unable to be obtained Physical Examination - Vital Signs Temperature: 97.3 F Blood Pressure: 142/70 Pulse: 69 Respirations: 17 Pulse Ox (%): 100 - Physical Exam General: Delirious Respiratory: Clear to auscultation bilaterally Cardiovascular: No edema, Regular rate/rhythm, Normal S1 S2 - Studies Laboratory Data (last 24 hrs) 07/10/24 07/10/24 19:00 19:00 WBC 4.10 L Hgb 11.4 L Hct 34.3 L Plt Count 104 L Sodium 136 Potassium 4.0 BUN 9 Creatinine 1.03 Glucose 228 H Total Bilirubin 0.8 AST 99 H ALT 91 H Alkaline Phosphatase 113 Assessment And Plan - Current Problems (Diagnosis) (1) Hepatic encephalopathy Current Visit: Yes Status: Acute Plan: Patient is 63 years of age admitted with hepatic encephalopathy mild pancytopenia. Liver function tests and ammonia currently unresponsive delirious nonverbal vital signs oxygenation satisfactory patient is s/p TIPS procedure there is no ascites on the ultrasound we will also do a chest x-ray
[2024-07-11] MEDS: THIAMINE 200 MG/2 ML INJ IVP SCH (11:37)
[2024-07-11] MEDS: LACTULOSE 20 GM/30 ML UCUP PR ONE (15:20)
--- NOTE | 2024-07-11 16:17 | RAD REPORT ---
Procedure: Chest Single View HISTORY: Hepatic encephalopathy COMPARISON: July 01, 2024 FINDINGS: The lungs appear clear of acute infiltrate. No significant pleural effusion noted. The heart is normal size. IMPRESSION: No acute abnormality is displayed.
[2024-07-11 16:35] LABS: PT Prothrombin Time 14.2 SECONDS (9.4-12.5); Protime INR 1.28
[2024-07-11] MEDS: METFORMIN ER 500 MG TAB PO SCH (20:45)
[2024-07-11] MEDS: GLUCERNA SHAKE 237 ML CAN PO SCH (20:46)
[2024-07-12] VITALS: BMI 23.3
[2024-07-12] MEDS: Levofloxacin 750mg IV 750 MG/150 ML BAG IV SCH (02:00)
[2024-07-12 05:34] LABS: Albumin 2.4 g/dL (3.4-5.0); Albumin/Globulin Ratio 0.5 (1.1-1.8); Anion Gap 7.6 mEq/L (5.0-15.0); Bilirubin Total 0.8 mg/dL (0.2-1.0); Globulin 4.4 g/dL (2.3-3.5); Potassium 3.6 mEq/L (3.5-5.1); Protein, Total 6.8 g/dL (6.4-8.2)
--- NOTE | 2024-07-12 07:29 | RAD REPORT ---
Procedure: Chest Single View HISTORY: Hepatic encephalopathy COMPARISON: July 11, 2024 FINDINGS: The lungs appear clear of acute infiltrate. No significant pleural effusion noted. The heart is normal size. IMPRESSION: No acute abnormality is displayed.
[2024-07-12] MEDS: MULTIVITAMIN TAB PO SCH (08:52)
[2024-07-12] MEDS: POTASSIUM CL SA 10 MEQ TAB PO ONE (08:52)
[2024-07-12] MEDS: lisinopriL 10 MG TAB PO SCH (08:52)
--- NOTE | 2024-07-12 14:21 | P.PN ---
Subjective Date of Service: 07/12/24 Chief Complaint: hepatic encephalopathy Patient appears to be more awake today, He is tolerating oral intake. No recorded fever. Patient had 3 bowel movement over the past 24 hours after lactulose enema. Physical Examination - Vital Signs Temperature: 98.2 F Blood Pressure: 125/70 Pulse: 80 Respirations: 16 Pulse Ox (%): 100 Assessment And Plan - Plan General: Awake, alert, and Oriented x 2, NAD HEENT: Atraumatic, Normocephalic Neck: Supple, 2+ carotid pulse no bruit, No Thyromegaly Respiratory: Clear BBS, Normal air movement, on RA Cardiovascular: Normal pulses, regular rate and rhythm, S1 S2 present Gastrointestinal: Soft and benign on palpation, ND/NT, bowel sounds present Musculoskeletal: No clubbing, No swelling Integumentary: No rashes Neurological: Awake and interactive, mildly confused. Vitals Reviewed Problem list Hepatic encephalopathy Cirrhosis status post TIPS Hyperammonemia Diabetes with hyperglycemia Dehydration Assessment and Plan Hepatic encephalopathy Cirrhosis status post TIPS Hyperammonemia continue lactulose Continue home medications including rifaximin Continue thiamine. PT Monitor ammonia level. Empiric antibiotic-IV Levaquin Diabetes with hyperglycemia Glucose monitoring with sliding scale insulin coverage Continue metformin Chronic anemia Stable Monitor H&H DVT prophylaxis: SCD Advanced directive: full code
[2024-07-12] MEDS: LACTULOSE 20 GM/30 ML UCUP PO SCH (16:23)
[2024-07-12] MEDS ORDERED: LACTULOSE 20 GM/30 ML UCUP PO SCH (17:00)
[2024-07-13 04:55] LABS: Absolute Lymphocytes (CBC) 1.8 K/uL (0.7-4.9); Absolute Monocytes 0.5 K/uL (0.1-1.3); Absolute Neutrophil 2.1 K/uL (1.8-8.0); Basophils % 0.9 % (0-1.3); Eosinophils % 0.9 % (0-4.4); Hematocrit 31.8 % (39.6-49.0); Hemoglobin 10.9 g/dL (13.6-17.9); MCH 27.4 pg (27.0-35.0); MCHC 34.1 g/dL (32.0-36.0); MCV 80.3 fL (80-100); MPV 8.1 fL (7.6-11.3); Monocytes % 12.2 % (3.3-12.3); Platelets 110 thou/uL (152-406); RBC Red Blood Cell Count 3.96 M/uL (4.33-5.43); Red Cell Distribution Width 18.1 % (12.1-15.2)
[2024-07-13 05:09] LABS: Albumin 2.4 g/dL (3.4-5.0); Albumin/Globulin Ratio 0.6 (1.1-1.8); Bilirubin Total 0.7 mg/dL (0.2-1.0); Globulin 4.3 g/dL (2.3-3.5); Protein, Total 6.7 g/dL (6.4-8.2)
--- NOTE | 2024-07-13 15:05 | P.PN ---
Subjective Date of Service: 07/13/24 Chief Complaint: hepatic encephalopathy Patient awake and interactive but slow to respond. He is tolerating oral intake. No recorded fever. Patient had 2 bowel movements yesterday during the day. Physical Examination - Vital Signs Temperature: 97.8 F Blood Pressure: 131/63 Pulse: 76 Respirations: 15 Pulse Ox (%): 99 Assessment And Plan - Plan General: Awake, and Oriented x 2, NAD HEENT: Atraumatic, Normocephalic Neck: Supple, 2+ carotid pulse no bruit, No Thyromegaly Respiratory: Clear BBS, Normal air movement, on RA Cardiovascular: Normal pulses, regular rate and rhythm, S1 S2 present Gastrointestinal: Soft and benign on palpation, ND/NT, bowel sounds present Musculoskeletal: No clubbing, No swelling Integumentary: No rashes Neurological: Awake and interactive, mildly confused. Vitals Reviewed Diagnosis Hepatic encephalopathy Cirrhosis status post TIPS Hyperammonemia Diabetes with hyperglycemia Dehydration Assessment and Plan Hepatic encephalopathy Cirrhosis status post TIPS Hyperammonemia Ammonia level increased from yesterday Titrate lactulose Continue home medications including rifaximin Continue thiamine. PT evaluation. Monitor ammonia level. Empiric antibiotic-IV Levaquin Diabetes with hyperglycemia Glucose monitoring with sliding scale insulin coverage Continue metformin Chronic anemia Stable Monitor H&H DVT prophylaxis: SCD Advanced directive: full code
[2024-07-13] MEDS: LACTULOSE 20 GM/30 ML UCUP PO SCH (16:07)
[2024-07-13] MEDS: levoFLOXacin 750 MG TAB PO SCH (21:53)
[2024-07-14] MEDS: PANTOPRAZOLE 40MG TABLET PO SCH (05:49)
[2024-07-14 06:14] LABS: Albumin 2.4 g/dL (3.4-5.0); Albumin/Globulin Ratio 0.5 (1.1-1.8); Anion Gap 5.9 mEq/L (5.0-15.0); Bilirubin Total 0.8 mg/dL (0.2-1.0); Globulin 4.4 g/dL (2.3-3.5); Potassium 3.9 mEq/L (3.5-5.1); Protein, Total 6.8 g/dL (6.4-8.2)
[2024-07-14] MEDS: POTASSIUM CL SA 10 MEQ TAB PO ONE (09:12)
[2024-07-14] MEDS: THIAMINE HCL 100 MG TABLET PO SCH (09:13)
--- NOTE | 2024-07-14 14:02 | P.PN ---
Subjective Date of Service: 07/14/24 Chief Complaint: hepatic encephalopathy Patient is more awake today and interactive. He is tolerating oral intake. No recorded fever. Physical Examination - Vital Signs Temperature: 99.2 F Blood Pressure: 120/64 Pulse: 84 Respirations: 14 Pulse Ox (%): 98 Assessment And Plan - Plan General: Awake, and Oriented x 3, NAD HEENT: Atraumatic, Normocephalic Neck: Supple, 2+ carotid pulse no bruit, No Thyromegaly Respiratory: Clear to auscultation bilaterally, Normal air movement, on RA Cardiovascular: Normal pulses, regular rate and rhythm, S1 S2 present Gastrointestinal: Soft and benign on palpation, ND/NT, bowel sounds present Musculoskeletal: No clubbing, No swelling Integumentary: No rashes Neurological: Awake and interactive. Vitals Reviewed Diagnosis Hepatic encephalopathy Cirrhosis status post TIPS Hyperammonemia Diabetes with hyperglycemia Dehydration Assessment and Plan Hepatic encephalopathy Cirrhosis status post TIPS Hyperammonemia Ammonia level significantly trended down from yesterday. Mental status improved. Continue current dose Continue home medications including rifaximin Continue thiamine. Continue PT. Monitor ammonia level. Empiric IV Levaquin Diabetes with hyperglycemia Glucose monitoring with sliding scale insulin coverage Continue metformin Chronic anemia Stable Monitor H&H DVT prophylaxis: SCD Advanced directive: full code
[2024-07-15 09:25] LABS: Anion Gap 6.7 mEq/L (5.0-15.0); Potassium 3.7 mEq/L (3.5-5.1)
--- NOTE | 2024-07-15 13:36 | P.PN ---
Subjective Date of Service: 07/15/24 Chief Complaint: hepatic encephalopathy Patient seems to be drowsy this morning He is tolerating oral intake. No recorded fever. Physical Examination - Vital Signs Temperature: 97.5 F Blood Pressure: 143/66 Pulse: 88 Respirations: 12 Pulse Ox (%): 96 Assessment And Plan - Plan General: Awake, and Oriented x 3, NAD HEENT: Atraumatic, Normocephalic Respiratory: Clear to auscultation bilaterally, Normal air movement, on RA Cardiovascular: Normal pulses, regular rate and rhythm, S1 S2 present Gastrointestinal: Soft and benign on palpation, ND/NT, bowel sounds present Musculoskeletal: No clubbing, No swelling Integumentary: No rashes Neurological: Drowsy, interactive. Vitals Reviewed Diagnosis Hepatic encephalopathy Cirrhosis status post TIPS Hyperammonemia Diabetes with hyperglycemia Dehydration Assessment and Plan Hepatic encephalopathy Cirrhosis status post TIPS Hyperammonemia Ammonia level continue to improve Mental status improved. Continue current dose lactulose Continue home medications including rifaximin Continue thiamine. Continue PT. Monitor ammonia level. Continue inpatient monitoring for 1 more day IV Levaquin Diabetes with hyperglycemia Glucose monitoring with sliding scale insulin coverage Continue metformin Chronic anemia Stable Monitor H&H DVT prophylaxis: SCD Advanced directive: full code Inpatient monitoring for 1 more day.
[2024-07-16 08:15] VITALS: O2SAT 95
--- NOTE | 2024-07-16 15:48 | P.DS ---
Admission Date: 07/10/24 Discharge Date: 07/16/24 Disposition: DC HOME/HOME HEALTH CARE Reason for Admission: hepatic encephalopathy Brief History of Present Illness: Patient is a 63-year-old man with a past medical history of decompensated cirrhosis status post TIPS procedure, hypertension, type 2 diabetes mellitus and CVA. He also has a history of coronary stent stenosis status post CEA. He was brought to the ER for evaluation of altered mental status. Patient was last seen normal the day before presentation. Patient is on rifaximin and lactulose at home. He usually does well when he is having 3 bowel movement per day but bowel movement frequency has decreased a few days prior. He was unable to complete CT head as he was constantly moving. Basic labs are significant for mild pancytopenia. His ammonia level was 167. His urinalysis was unremarkable. Patient was admitted for further management of hepatic encephalopathy. Hospital Course: Patient admitted to the medical floor and the following medical problems add ressed: Diagnosis Hepatic encephalopathy Cirrhosis status post TIPS Hyperammonemia Diabetes with hyperglycemia Dehydration Hepatic encephalopathy Cirrhosis status post TIPS Hyperammonemia Patient treated with lactulose which was titrated up to 60 mg 4 times daily for him to have 2-3 bowel movements per day Ammonia level improved significantly Mental status improved to baseline Continue home medications including rifaximin Patient also placed on thiamine supplementation. He was evaluated by PT. Patient is now ambulating and tolerating diet Patient was treated with Levaquin as empiric antibiotics for hepatic encephalopathy. Vitals are stable for discharge. Diabetes with hyperglycemia Managed with insulin sliding scale and home dose metformin. Metformin resumed on discharge. Chronic anemia Stable Coronary artery disease History of CVA Continue aspirin. Patient with low LDL, total cholesterol and triglyceride likely related to advanced liver disease. Lipitor discontinued. Vital Signs/Physical Exam: Temp Pulse Resp BP Pulse Ox 97.8 F 69 14 148/68 H 99 07/16/24 12:00 07/16/24 12:00 07/16/24 12:00 07/16/24 12:00 07/16/24 12:00 General: Alert, In no apparent distress, Oriented x3 HEENT: Mucous membr. moist/pink Neck: Supple, JVD not distended Respiratory: Clear to auscultation bilaterally, Normal air movement Cardiovascular: No edema, Regular rate/rhythm Gastrointestinal: Soft and benign, Non-distended, No tenderness Musculoskeletal: No swelling Integumentary: No rashes, No cyanosis Neurological: Normal strength at 5/5 x4 extr Laboratory Data at Discharge: WBC 4.50 thou/uL (4.3-10.9) 07/13/24 04:23 Hgb 10.9 g/dL (13.6-17.9) L 07/13/24 04:23 Hct 31.8 % (39.6-49.0) L 07/13/24 04:23 Plt Count 110 thou/uL (152-406) L 07/13/24 04:23 PT 14.2 SECONDS (9.4-12.5) H 07/11/24 16:25 INR 1.28 07/11/24 16:25 Sodium 142 mEq/L (136-145) 07/15/24 08:55 Potassium 3.7 mEq/L (3.5-5.1) 07/15/24 08:55 BUN 15 mg/dL (7-18) 07/15/24 08:55 Creatinine 1.18 mg/dL (0.70-1.30) 07/15/24 08:55 Glucose 164 mg/dL (74-106) H 07/15/24 08:55 Phosphorus 3.6 mg/dL (2.5-4.9) 07/11/24 00:53 Magnesium 2.0 mg/dL (1.6-2.4) 07/11/24 00:53 Total Bilirubin 0.8 mg/dL (0.2-1.0) 07/14/24 05:42 AST 75 U/L (15-37) H 07/14/24 05:42 ALT 72 U/L (16-61) H 07/14/24 05:42 Alkaline Phosphatase 113 U/L (45-117) 07/14/24 05:42 Home Medications: Aspirin Chewable [Aspirin Chewable*] 81 mg PO DAILY 06/13/24 Metformin ER [Glucophage ER*] 500 mg PO BID 06/13/24 Multivitamin/Iron/Folic Acid [Multivitamin with Iron Tablet] 1 each PO DAILY 06/13/24 lisinopriL [Lisinopril] 10 mg PO DAILY 06/13/24 Pantoprazole [Protonix Tab*] 40 mg PO BID 07/02/24 Rifaximin [Xifaxan] 550 mg PO BID #60 tab 07/04/24 Lactulose [Cephulac*] 90 ml PO QID 07/16/24 Thiamine HCl [Vitamin B-1*] 100 mg PO DAILY #30 tab 07/16/24 levoFLOXacin [Levaquin*] 750 mg PO Q24H #5 tab 07/16/24 New Medications: levoFLOXacin [Levaquin*] 750 mg PO Q24H #5 tab Thiamine HCl [Vitamin B-1*] 100 mg PO DAILY #30 tab Physician Discharge Instructions: HOME HEALTH TO RESUME WITH: [facility]) M:[phone] [place] P:[phone] Diet: ADA Activity: Fall precautions Followup: Uzair Majano DO [Primary Care Provider] - 1 Week Time spent managing pt's care (in minutes): 34
[2024-07-16 16:46] VITALS: BP 144/68; TEMP 98.4
== END 2024-07-16 17:00 | disposition home health service (06) | DRG 442 ==
LOC: ER 17:09 → ERHOLD 20:47 → 2ND 21:25
PROVIDERS: ADMIT Internal Medicine; ATTEND Internal Medicine
DX: K76.82 Hepatic encephalopathy (principal); D61.818 Other pancytopenia; K76.6 Portal hypertension; E72.20 Disorder of urea cycle metabolism, unspecified; K74.60 Unspecified cirrhosis of liver; E86.0 Dehydration; I77.9 Disorder of arteries and arterioles, unspecified; I10 Essential (primary) hypertension; E11.65 Type 2 diabetes mellitus with hyperglycemia; E78.00 Pure hypercholesterolemia, unspecified; Z86.73 Personal history of transient ischemic attack (TIA), and cerebral infarction without residual deficits; Z28.310 Unvaccinated for COVID-19; Z79.82 Long term (current) use of aspirin; Z79.84 Long term (current) use of oral hypoglycemic drugs; Z79.899 Other long term (current) drug therapy; Z87.891 Personal history of nicotine dependence
CPT/HCPCS: 36415; 51702; 70450; 71045; 76705; 80048; 80053; 81001; 82140; 82550; 82947; 83735; 84100; 84439; 84443; 85025; 85610; 87040; 97116; 97161; 97530; 99285; J2470; J3411; J7030